=== PATIENT | female | born 1945 | race Caucasian/White ===

== ENCOUNTER 2023-09-17 15:18 | Outpatient (CLI) | payer MEDICARE, SELFPAY ==
[2023-09-17 15:39] LABS: Basophils Absolute Auto 0.07 K/mm3 (0.00-0.10); Basophils Percent Auto 0.8 % (0.0-1.0); Eosinophils Absolute Auto 0.28 K/mm3 (0.02-0.50); Eosinophils Percent Auto 3.3 % (1.0-6.0); Hematocrit 34.9 % (35.0-42.0); Hemoglobin 11.4 g/dL (11.7-13.8); Immature Granulocyte Absolute 0.03 K/mm3 (0.00-0.00); Immature Granulocyte Percent A 0.4 % (0.0-0.0); Lymphocytes Absolute Auto 1.45 K/mm3 (1.10-4.50); Lymphocytes Percent Auto 17.2 % (18.0-42.0); Mean Corpuscular HGB Conc 32.7 g/dL (32.0-36.0); Mean Corpuscular Hemoglobin 31.6 pg (27.0-31.0); Mean Corpuscular Volume 96.7 fL (78.0-102.0); Mean Platelet Volume 9.2 fl (9.2-11.8); Monocytes Percent Auto 9.5 % (2.0-11.0); Neutrophils Absolute Auto 5.8 K/mm3 (1.7-7.2); Neutrophils Percent Auto 68.8 % (50.0-70.0); Platelet Count Result 318 K/mm3 (150-420); Red Blood Count 3.61 M/mm3 (4.20-5.40); Red Cell Distribution Width 14.4 % (11.6-14.4); White Blood Count 8.4 K/mm3 (4.8-10.8)
[2023-09-17 16:06] LABS: Alanine Aminotransferase 24 U/L (14-59); Albumin Level 4.3 g/dL (3.4-5.0); Alkaline Phosphatase 63 U/L (46-116); Anion Gap 7 mmol/L (8-16); Aspartate Amino Transferase 36 U/L (15-37); Bilirubin,Total 0.4 mg/dL (0.00-1.00); Blood Urea Nitrogen 48 mg/dL (7-18); Calcium 9.5 mg/dL (8.5-10.1); Carbon Dioxide 28 mmol/L (21-32); Chloride 100 mmol/L (98-108); Cholesterol 265 mg/dL (0-200); Estimated Glomerular Filt Rate 34; Glucose 102 mg/dL (70-99); HDL Direct 102 mg/dL (40-60); LDL Cholesterol Calculated 138 mg/dL (<130); Osmolality Calculated 292 mOsm/kg (285-295); Potassium 4.9 mmol/L (3.5-5.1); Sodium 135 mmol/L (136-145); Total Protein 7.3 g/dL (6.4-8.2); Triglycerides 123 mg/dL (0-150)
[2023-09-17 16:16] LABS: Thyroid Stimulating Hormone Reflex 2.47 u/IU/mL (0.36-3.74)
== END 2023-09-17 15:19 | disposition home or self-care (01) ==
PROVIDERS: PCP Family Medicine; Visit Provider Family Medicine
DX: E11.9 Type 2 diabetes mellitus without complications (principal); E03.9 Hypothyroidism, unspecified; N18.9 Chronic kidney disease, unspecified
CPT/HCPCS: 36415; 80053; 80061; 84443; 85025

== ENCOUNTER 2023-12-09 11:45 | Outpatient (CLI) | payer MEDICARE, SELFPAY ==
--- NOTE | ~2023-12-09 | US_ITS ---
Renal-Bladder ultrasound Clinical History: Chronic kidney disease Technique: Real-time sonographic imaging of the kidneys and urinary bladder was performed. Findings: The right kidney measures 9.2 cm in length and the left kidney measures 9.6 cm. There is no hydronephrosis or renal calculus identified. Renal cortical echogenicity is within normal limits. No renal mass lesion is identified. The urinary bladder is minimally distended at the time of this exam. No intraluminal echoes are ident ified. No abnormal wall thickening is seen. Impression: Unremarkable ultrasound of the kidneys and urinary bladder. Reviewed, dictated and finalized at location M. APPRAISER Impression: Unremarkable ultrasound of the kidneys and urinary bladder.
[2023-12-09 12:43] LABS: Creatinine Urine 49.49 mg/dL (40-278); Total Protein Urine Random 10.2 mg/dL (0.0-11.9); Ur Ttl Prot Creatinine Ratio 0.21 mg/mg (0-0.20)
[2023-12-09 12:51] LABS: Albumin Level 4.1 g/dL (3.4-5.0); Anion Gap 14 mmol/L (8-16); Blood Urea Nitrogen 40 mg/dL (7-18); Calcium 8.8 mg/dL (8.5-10.1); Carbon Dioxide 22 mmol/L (21-32); Chloride 97 mmol/L (98-108); Estimated Glomerular Filt Rate 37; Glucose 108 mg/dL (70-99); Osmolality Calculated 286 mOsm/kg (285-295); Phosphorus 3.7 mg/dL (2.6-4.7); Sodium 133 mmol/L (136-145)
[2023-12-11 15:26] LABS: Albumin 4.4 g/dL (3.8-4.8); Alpha 1 Globulin 0.3 g/dL (0.2-0.3); Alpha 2 Globulin 0.8 g/dL (0.5-0.9); Beta 1 Globulin 0.5 g/dL (0.4-0.6); Gamma Globulin 0.7 g/dL (0.8-1.7); Protein, Total 7.1 g/dL (6.1-8.1)
[2023-12-12 13:14] LABS: Vitamin D 25 Hydroxy 28 ng/mL (30-100)
[2023-12-12 22:08] LABS: ANCA Screen Negative (Negative)
[2023-12-13 13:06] LABS: Anti Glomerular Basement Memb <1.0 AI (<1.0)
[2023-12-16 10:43] LABS: Complement C3 126 mg/dL (83-193)
[2023-12-16 21:23] LABS: Creatinine, Random Urine 55 mg/dL (20-275); Total Protein/Creatinine Ratio 145 mg/g creat (24-184)
== END 2023-12-09 11:46 | disposition home or self-care (01) ==
LOC: CHSIMG 11:49
PROVIDERS: PCP Family Medicine; Visit Provider Internal Medicine Nephrology
DX: I12.9 Hypertensive chronic kidney disease with stage 1 through stage 4 chronic kidney disease, or unspecified chronic kidney disease (principal); N18.32 Chronic kidney disease, stage 3b
CPT/HCPCS: 36415; 76775; 80069; 82306; 82570; 83520; 84155; 84156; 84165; 84166; 86036; 86038; 86160; 86225

== ENCOUNTER 2024-04-27 10:00 | Outpatient (CLI) | payer MEDICARE, SELFPAY ==
[2024-04-27 10:59] LABS: Anion Gap 12 mmol/L (4-12); Blood Urea Nitrogen 40 mg/dL (7-18); Carbon Dioxide 22 mmol/L (21-32); Chloride 102 mmol/L (98-108); Estimated Glomerular Filt Rate 41; Glucose 99 mg/dL (70-99); Osmolality Calculated 291 mOsm/kg (285-295); Phosphorus 3.9 mg/dL (2.6-4.7); Potassium 4.4 mmol/L (3.5-5.1); Sodium 136 mmol/L (136-145)
[2024-04-27 11:01] LABS: Creatinine Urine 23.46 mg/dL (40-278); Total Protein Urine Random < 7.0 mg/dL (0.0-11.9)
[2024-04-28 12:33] LABS: Vitamin D 25 Hydroxy 22 ng/mL (30-100)
[2024-04-28 13:23] LABS: Parathyroid Intact 26 pg/mL (16-77)
== END 2024-04-27 10:01 | disposition home or self-care (01) ==
LOC: CHSLAB 10:03
PROVIDERS: PCP Family Medicine; Visit Provider Internal Medicine Nephrology
DX: N25.81 Secondary hyperparathyroidism of renal origin (principal); N18.32 Chronic kidney disease, stage 3b; E55.9 Vitamin D deficiency, unspecified; I12.9 Hypertensive chronic kidney disease with stage 1 through stage 4 chronic kidney disease, or unspecified chronic kidney disease
CPT/HCPCS: 36415; 80069; 82306; 82570; 83970; 84156

== ENCOUNTER 2024-09-17 16:11 | Outpatient (CLI) | payer MEDICARE, SELFPAY ==
[2024-09-17 16:34] LABS: Basophils Absolute Auto 0.04 K/mm3 (0.00-0.10); Basophils Percent Auto 0.5 % (0.0-1.0); Eosinophils Absolute Auto 0.25 K/mm3 (0.02-0.50); Eosinophils Percent Auto 3.3 % (1.0-6.0); Hematocrit 38.9 % (35.0-42.0); Hemoglobin 13.3 g/dL (11.7-13.8); Immature Granulocyte Absolute 0.02 K/mm3 (0.00-0.00); Immature Granulocyte Percent A 0.3 % (0.0-0.0); Lymphocytes Percent Auto 18.3 % (18.0-42.0); Mean Corpuscular HGB Conc 34.2 g/dL (32-36); Mean Corpuscular Hemoglobin 32.3 pg (27.0-31.0); Mean Corpuscular Volume 94.4 fL (78.0-102.0); Monocytes Absolute Auto 0.78 K/mm3 (0.10-0.90); Monocytes Percent Auto 10.2 % (2.0-11.0); Neutrophils Absolute Auto 5.14 K/mm3 (1.70-7.20); Neutrophils Percent Auto 67.4 % (50.0-70.0); Platelet Count Result 298 K/mm3 (150-420); Red Blood Count 4.12 M/mm3 (4.20-5.40); Red Cell Distribution Width 12.9 % (11.6-14.4); White Blood Count 7.6 K/mm3 (4.8-10.8)
[2024-09-17 17:19] LABS: Alanine Aminotransferase 14 U/L (14-59); Albumin Level 4.4 g/dL (3.4-5.0); Alkaline Phosphatase 67 U/L (46-116); Anion Gap 13 mmol/L (4-12); Aspartate Amino Transferase 13 U/L (15-37); Bilirubin,Total 0.5 mg/dL (0.00-1.00); Blood Urea Nitrogen 39 mg/dL (7-18); Carbon Dioxide 23 mmol/L (21-32); Chloride 102 mmol/L (98-108); Cholesterol 335 mg/dL (0-200); Estimated Glomerular Filt Rate 37; Glucose 103 mg/dL (70-99); HDL Direct 120 mg/dL (40-60); LDL Cholesterol Calculated 199 mg/dL (<130); Osmolality Calculated 295 mOsm/kg (285-295); Potassium 4.6 mmol/L (3.5-5.1); Sodium 138 mmol/L (136-145); Total Protein 7.8 g/dL (6.4-8.2); Triglycerides 78 mg/dL (0-150)
[2024-09-17 17:20] LABS: Thyroid Stimulating Hormone Reflex 1.82 u/IU/mL (0.36-3.74)
--- OUTSIDE RECORDS SUMMARY | 2024-09-21 04:17 | XMS_ITS | Encounter Summary ---
Author Organization [facility] Address [address] [place] [address] Phone Care Team Providers Care Wrapper Hands Sprayer Name Role Phone Liliya Rai MD Unavailable Cate Patel MD Primary Care Provider [phone] Vadim Browning MD Unavailable Unavailable Sarah Borges MD Unavailable +1- [phone] Reason for Visit * Reason Onset Date Comments Results 10/25/2021 Encounter Details Date Type Department Care Team (Late st Contact Info) Description 10/25/2021 Telephone [facility] - Endocrinology [facility] [address] [place] [address] Liliya Rai MD [address] [address] Results Social History Tobacco Use Types Packs/Day Years Used Date Smoking Tobacco: Never Smokeless Tobacco: Never Alcohol Use Standard Drinks/Week Comments No 0 (1 standard drink = 0.6 oz pur e alcohol) PHQ-2 Answer Date Recorded PHQ-2 Score 0 06/07/2019 Sexually Active Control Partners Comments Not Currently Comments No Sex and Gender Information Value Date Recorded Sex Assigned at Not on file Legal Sex Female 12:34 AM CDT Gender Identity Not on file Sexual Orientation Not on file COVID-19 Exposure Response Date Recorded In the last month, have you been in contact with someone who was confirmed or suspected to have Coronavirus / COVID-19? No / Unsure 10/25/2021 10:08 AM BUCKLE ATTACHER documented as of this encounter Miscellaneous Notes * Telephone Encounter - Vira Turcios RN - 10/26/2021 2:54 PM BUCKLE ATTACHER Akellat message sent. LE ATTACHER * Telephone Encounter - Liliya Rai MD - 10/25/2021 4:19 PM CST Please inform that thyroid function test result was within the reference range. LE ATTACHER documented in this encounter Plan of Treatment Not on file documented as of this encounter Visit Diagnoses Not on filedocumented in this encounter Additional Health Concerns Assessment Noted Time PHQ-9 Depression Total Score: 0 08/30/20 3:00 PM BUCKLE ATTACHER documented as of this encounter Care Teams Wrapper Hands Sprayer Relationship Specialty Start Date End Date Cate Patel MD [address] [place] [address] PCP - General Family Medicine 12/11/20 03/05/23 Liliya Rai MD [address] [address] Consulting Physician Endocrinology 10/24/20 Vadim Browning MD [address] [place] [address] Consulting Physician General Surgery 03/22/21 Sarah Borges MD [address] [place] [address] Consulting Physician Endocrinology 03/22/21 documented as of this encounter
--- OUTSIDE RECORDS SUMMARY | 2024-09-21 04:17 | XMS_ITS | Encounter Summary ---
Author Organization [employer] Care Team Providers Care Mig Tig Welder Name Role Phone Liliya Rai MD Unavailable Cate Patel MD Primary Care Provider [phone] Vadim Browning MD Unavailable Unavailable Sarah Borges MD Unavailable [phone]- [phone] Encounter Details Date Type Department Care Team (Latest Contact Info) Description 10/25/2021 Travel Social History Tobacco Use Types Packs/Day Years [...] COVID-19? No / Unsure 10/25/2021 10:08 AM SHEET METAL ENGINEER documented as of this encounter Plan of Treatment Not on file documented as of this encounter Visit Diagnoses Not on filedocumented in this encounter Additional Health Concerns Assessment Noted Time PHQ-9 Depression Total Score: 0 11/25/20 19 3:00 PM SHEET METAL ENGINEER documented as of this encounter Care Teams Mig Tig Welder Relationship Specialty Start Date End Date Cate Patel MD [address] [place] [address] PCP - General Family Medicine 12/11/20 03/05/23 Liliya Rai MD #[address] [address] Consulting Physician Endocrinology 10/24/20 Vadim Browning MD [address] [place] [address] Consulting Physician General Surgery 03/22/21 Sarah Borges MD [address] [place] [address] Consulting Physician Endocrinology 03/22/21 documented as of this encounter
--- OUTSIDE RECORDS SUMMARY | 2024-09-21 04:17 | XMS_ITS | Referral Summary ---
Author Organization [facility] Address [address] [address] Care Team Providers Care Health Technician Hearing Name Role Phone Unavailable Primary Care Provider Unavailabl e Source Comments [facility],non-owned Affiliates and Associated Physician Practices is amultiple site organization consisting of ambulatory clinics and hospital sitesin [place], [place], [place] and [place]. This disclosure is being madepursuant to the Care Everywhere program and may not contain all information available regarding this patient. Last updated 18.[facility] Social History Tobacco Use Types Packs/Day Years Used Date Smoking Tobacco: Never Assessed Sex and Gender Information Value Date Recorded Sex Assigned at Not on file Gender Identity Not on file Sexual Orientation Not on file Plan of Treatment Not on file
--- OUTSIDE RECORDS SUMMARY | 2024-09-21 04:17 | XMS_ITS | Encounter Summary ---
Author Organization [employer] Care Team Providers Care [employer] Special Education Teacher Name Role Phone Liliya Rai MD Unavailable Cate Patel MD Primary Care Provider + [phone] Vadim Browning MD Unavailable Unavailable Sarah Borges MD Unavailable [phone]- [phone] Encounter Details Date Type Department Care Team (Latest Contact Info) Description 06/24/2022 Travel Social History Tobacco Use Types Packs/Day [...] Exposure Response Date Recorded In the last 10 days, have yo u been in contact with someone who was confirmed or suspected to have Coronavirus/COVID-19? No / Unsure 06/24/2022 9:37 AM CDT documented as of this encounter Plan of Treatment Not on file documented as of this encounter Visit Diagnoses Not on filedocumented in this encounter Additional Health Concerns Assessment Noted Time PHQ-9 Depression Total Score: 0 08/30/20 19 3:00 PM HOSPITAL COOK documented as of this encounter Care Teams [employer] Special Education Teacher Relationship Specialty Start Date End Date Cate Patel MD [address] [place] [address] PCP - General Family Medicine 12/11/20 03/05/23 Liliya Rai MD #[address] [address] Consulting Physician Endocrinology 10/24/20 Vadim Browning MD [address] [place] [address] Consulting Physician General Surgery 03/22/21 Sarah Borges MD [address] [place] [address] Consulting Physician Endocrinology 03/22/21 documented as of this encounter
--- OUTSIDE RECORDS SUMMARY | 2024-09-21 04:17 | XMS_ITS | Encounter Summary ---
Author Organization [facility] Address [address] [place] [address] Phone Care Team Providers Care Manufacturing Test Engineer Name Role Phone Liliya Rai MD Unavailable Cate Ptael MD Primary Care Provider [phone] Vadim Browning MD Unavailable Unavailable Sarah Borges MD Unavailable +- [phone] Guerrero Nicholson MD Primary Care Provider Reason for Visit * Reason Comments Medication Refill Encounter Details Date Type Department Care Team (Late st Contact Info) Description 10/22/2021 Refill [facility] - Primary Care - [place] [address] [place] [address] Cate Patel MD [address] [place] [address] Medication Refill Social History Tobacco Use Types Packs/Day Years [...] COVID-19? No / Unsure 10/25/2021 10:08 AM GEOGRAPHIC INFORMATION SYSTEMS ANALYST documented as of this encounter Miscellaneous Notes * Telephone Encounter - Shoshana Burns RN - 10/22/2021 10:58 AM CST Refill too soon RAPHIC INFORMATION SYSTEMS ANALYST documented in this encounter Plan of Treatment Not on file documented as of this encounter Visit Diagnoses Diagnosis Gastroesophageal reflux disease without esophagitis Esophageal reflux Obesity, Class III, BMI 40-49.9 (morbid obesity) (HCC) Morbid obesity documented in this encounter Additional Health Concerns Assessment Noted Time PHQ-9 Depression Total Score: 0 08/30/20 19 3:00 PM GEOGRAPHIC INFORMATION SYSTEMS ANALYST documented as of this encounter Care Teams Manufacturing Test Engineer Relationship Specialty Start Date End Date Cate Patel MD [address] [place] [address] PCP - General Family Medicine 12/11/20 03/05/23 Guerrero Nicholson MD [address] [facility] [address] [place] [address] PCP - General Neurology 07/30/23 Liliya Rai MD #[address] [phone] Consulting Physician Endocrinology 10/24/20 Vadim Browning MD [address] [place] [address] Consulting Physician General Surgery 03/22/21 Sarah Borges MD [address] [place] [address] Consulting Physician Endocrinology 03/22/21 documented as of this encounter
--- OUTSIDE RECORDS SUMMARY | 2024-09-21 04:17 | XMS_ITS | Encounter Summary ---
Author Organization [employer] Care Team Providers Care Psychological Science Professor Name Role Phone Liliya Rai MD Unavailable Vadim Browning MD Unavailable Unavailable Sarah Borges MD Unavailable [phone] Guerrero Nicholson MD Primary Care Provider Encounter Details Date Type Department Care Team (Latest Contact Info) Description 07/30/2023 Travel Social History Tobacco Use Types Packs/Day [...] suspected to have Coronavirus/COVID-19? No / Unsure 07/30/2023 12:50 PM CDT documented as of this encounter Plan of Treatment Not on file documented as of this encounter Visit Diagnoses Not on filedocumented in this encounter Additional Health Concerns Assessment Noted Time PHQ-9 Depression Total Score: 0 08/30/20 19 3:00 PM BATCH FREEZER OPERATOR documented as of this encounter Care Teams Psychological Science Professor Relationship Specialty Start Date End Date Guerrero Nicholson MD [address] [facility] [address] [place] [address] PCP - General Neurology 07/30/23 Liliya Rai MD [address] [address] Consulting Physician Endocrinology 10/24/20 Vadim Browning MD #[address] [address] Consulting Physician General Surgery 03/22/21 Sarah Borges MD #[address] [address] Consulting Physician Endocrinology 03/22/21 documented as of this encounter
--- OUTSIDE RECORDS SUMMARY | 2024-09-21 04:17 | XMS_ITS | Encounter Summary ---
Author Organization [facility] Address [address] [place] [address] Phone Care Team Providers Care Trials Manager Name Role Phone Liliya Rai MD Unavailable Cate Patel MD Primary Care Provider [phone] Vadim Browning MD Unavailable Unavailable Sarah Borges MD Unavailable +- [phone] Guerrero Nciholson MD Primary Care Provider Reason for Visit * Reason Comments Medication Refill Encounter Details Date Type Department Care Team (Late st Contact Info) Description 09/02/2022 Refill [facility] - Primary Care - [place]oj [address] [place] [address] Cate Patel MD [address] [place] [address] Medication Refill Social History Tobacco [...] on file Sexual Orientation Not on file documented as of this encounter Miscellaneous Notes * Telephone Encounter - Shoshana Burns RN - 09/03/2022 9:48 AM CST Refill requested too soon. CARE MANAGER documented in this encounter Plan of Treatment Not on file documented as of this encounter Visit Diagnoses Diagnosis Gastroesophageal reflux disease without esophagitis Esophageal reflux Acquired hypothyroidism Unspecified hypothyroidism Hyperlipidemia, unspecified hyperlipidemia type Obesity, Class III, BMI 40-49.9 (morbid obesity) (HCC) Morbid obesity Essential hypertension Unspecified essential hypertension documented in this encounter Additional Health Concerns Assessment Noted Time PHQ-9 Depression Total Score: 0 08/30/20 19 3:00 PM BODY CARE MANAGER documented as of this encounter Care Teams Trials Manager Relationship Specialty Start Date End Date Cate Patel MD [address] [place] [address] PCP - General Family Medicine 12/11/20 03/05/23 Guerrero Nicholson MD [address] [facility] [address] [place] [address] PCP - General Neurology 07/30/23 Liliya Rai MD [address] [address] Consulting Physician Endocrinology 10/24/20 Vadim Browning MD [address] [place] [address] Consulting Physician General Surgery 03/22/21 Sarah Borges MD [address] [place] [address] Consulting Physician Endocrinology 03/22/21 documented as of this encounter
--- OUTSIDE RECORDS SUMMARY | 2024-09-21 04:17 | XMS_ITS | Encounter Summary ---
Author Organization [employer] Care Team Providers Care Landscape Horticulture Instructor Name Role Phone Liliya Rai MD Unavailable Cate Patel MD Primary Care Provider + [phone] Vadim Browning MD Unavailable Unavailable Sarah Borges MD Unavailable [phone]- [phone] Encounter Details Date Type Department Care Team (Latest Contact Info) Description 06/27/2022 Travel Social History Tobacco Use Types Packs/Day [...] suspected to have Coronavirus/COVID-19? No / Unsure 06/27/2022 11:10 AM CDT documented as of this encounter Plan of Treatment Not on file documented as of this encounter Visit Diagnoses Not on filedocumented in this encounter Additional Health Concerns Assessment Noted Time PHQ-9 Depression Total Score: 0 08/30/20 19 3:00 PM ORNAMENTER documented as of this encounter Care Teams Landscape Horticulture Instructor Relationship Specialty Start Date End Date Cate Patel MD [address] [place] [address] PCP - General Family Medicine 12/11/20 03/05/23 Liliya Rai MD [address] [phone] Consulting Physician Endocrinology 10/24/20 Vadim Browning MD [address] [place] [address] Consulting Physician General Surgery 03/22/21 Sarah Borges MD [address] [place] [address] Consulting Physician Endocrinology 03/22/21 documented as of this encounter
--- OUTSIDE RECORDS SUMMARY | 2024-09-21 04:17 | XMS_ITS | Encounter Summary ---
Author Organization [facility] Address [address] [place] [address] Phone Care Team Providers Care Butter Printer Name Role Phone Liliya Rai MD Unavailable Cate Patel MD Primary Care Provider [phone] Vadim Browning MD Unavailable Unavailable Sarah Borges MD Unavailable +- [phone] Reason for Visit * Reason Comments Confusion Need Order For walker with a se at Encounter Details Date Type Department Care Team (Latest Contact Info) Description 12/27/2021 10:30 AM CDT Office Visit [facility] - Primary Care - Saroj [address] [place] [id number] Cate Patel MD [address] [place], [place] [id number] Primary hypertension (Primary Dx); Hyperlipidemia, unspecified hyperlipidemia type; Memory loss; Spinal stenosis of lumbar region, unspecified whether neurogenic claudication present; Primary osteoarthritis involving multiple joints; IFG (impaired fasting glucose) Discharge Disposition: Discharged to home or Selfcare Social History Tobacco Use Types Packs/Day Years [...] suspected to have Coronavirus/COVID-19? No / Unsure 12/27/2021 10:08 AM CDT documented as of this encounter Last Filed Vital Signs Vital Sign Reading Time Taken Comments Blood Pressure 126/74 12/27/2021 10:12 AM CDT Pulse 90 12/27/2021 10:12 AM CDT Temperature - - Respiratory Rate 19 12/27/2021 10:12 AM CDT Oxygen Saturation 98% 12/27/2021 10:12 AM CDT Inhaled Oxygen Concentration - - Weight 91.6 kg (202 lb) 12/27/2021 10:12 AM CDT Height 157.5 cm (5' 2 ) 12/27/2021 10:12 AM CDT Body Mass Index 36.95 12/27/2021 10:12 AM CDT documented in this encounter Progress Notes * Cate Patel MD - 12/27/2021 10:30 AM CDT Subjective Chief Complaint Patient presents with ??? Confusion ??? Need Order For walker with a seat History of Present Illness Silvia Boss presents here for a followup for her chronic medical conditions. Vitals are stable with a BP of 126/74 mmHg. She continues to take diltiazem CD 240 mg daily and lisinopril/HCTZ 20/25 mgdaily. She reports having lost her son recently. Apparently, his friend and her son were drunk and his friend shot him, so she seems to be very emotional and crying. She denies having any depression symptoms. She reports having memory loss symptoms, especially when she drives. She would drive to her friend's house but get lost on the way and would not remember where she was going and while she was going and then after a few seconds, she will be able to recollect and then drive to her friend's house. This happened a few times in the last 2 months. She initially thought it was because of the COVID vaccine, but her COVID vaccine was given in November and December of 2020. Denies having memory loss at other times, at home she is fine, when she is talking to her friends, she is fine. She has not had any loss of memory, specifically. Mindfulness technique surgery recommended while driving. She wants a seated walker because she has osteoarthritis in her knees and shoulders. She is currently using a cane, which is not very helpful. She wants to be more mobile, but is afraid about falls, so a prescription for a seated walker given. She would benefit from that as she is high risk for falls. LABS: Done on 12/19/2021 were reviewed. Ferritin level is high. Iron studies are normal. Thyroid functions are normal. Lipid panel shows elevated total cholesterol of 223, LDL is at goal at 117 and CMP shows FBS of 108 which is impaired. Creatinine is 1.25 with an EG FR of 42. LFTs are normal. CBCis within acceptable limits with a hemoglobin of 11.6. IJN: [id number] ROS: RESPIRATORY: Patient denies shortness of breath, chronic cough or other respiratory problems. CARDIAC: Patient denies chest pain, chest pressure, palpitations, diaphoresis, chest pain radiating into arms or neck. PMH/PSH/FH/SH/medications/allergies/health maintenance entries were reviewed with patient and updated. Objective: Physical Exam Vitals: 12/27/21 1012 BP: 126/74 Pulse: 90 Resp: 19 SpO2: 98% Weight: 202 lb (91.6 kg) Height: 5' 2 (1.575 m) Body mass index is 36.95 kg/m??. Constitutional: She appears well-developed and well-nourished. No distress. HENT: Head: Atraumatic, normocephalic. Cardiovascular: Normal rate, regular rhythm, normal heart sounds and intact distal pulses. No murmur/rubs/gallops heard. Pulmonary/Chest: clear to auscultation bilaterally, no crepts or wheezes. Musculoskeletal/extremities: no pedal edema, no calf tenderness. Skin: Skin is warm and dry. Assessment and Plan Silvia Boss presents here for Confusion and Need Order (For walker with a seat ) 1. Primary hypertension - continue diltiazem CD 2 40 mg q.d., lisinopril/HCTZ 20/25 mg q.d. 2. Hyperlipidemia, unspecified hyperlipidemia type - continue simvastatin 5 mg q.d. 3. Memory loss - only when driving. Memory at other times is very good. Mindfullness practices recommended. 4. Spinal stenosis of lumbar region, unspecified whether neurogenic claudication present 5. Primary osteoarthritis involving multiple joints - WALKER, ROLLER WITH SEAT AND BRAKES 6. IFG (impaired fasting glucose) - Advised Low carb diet, low concentrated sweets, exercise and weight loss. Followup: Return in about 6 months (around 06/29/2022).with labs done 1 week prior to next appointment. The patient understood the plan, questions were answered and AVS including the updated medication list was provided to the patient. Documentation for this visit on 12/27/21 was completed using a template. I have seen and examined the patient. Everything documented was personally performed at this visit with the necessary additions, deletions and changes made as appropriate. This note was dictated using [employer] fluency dictation system and there may be errors in rock wool applicator. Despite proof reading the note, there may be mistakes and I apologize for those. Cate Patel MD documented in this encounter Plan of Treatment Not on file documented as of this encounter Results * THYROID STIMULATING HORMONE (TSH) (06/24/2022 9:42 AM CDT) TSH 1.600 0.270 - 4.200 mIU/L 06/24/2022 10:49 AM CDT [facility] Blood Venipuncture / Unknown 06/24/2022 9:42 AM CDT 06/24/2022 10:15 AM CDT us Cate Patel MD CHEMISTRY ORDERABLES Final R esult [facility] [address] [place] [address] * THYROXINE (T4) FREE (06/24/2022 9:42 AM CDT) [facility] T4 FREE 1.3 0.9 - 1.7 ng/dL 06/24/2022 10:49 AM CDT [facility] Blood Venipuncture / Unknown 06/24/2022 9:42 AM CDT 06/24/2022 10:15 AM CDT us Cate Patel MD CHEMISTRY ORDERABLES Final R esult Performing Organization Address [facility] Co de Phone Number [facility] [address] [place] [address] * HEMOGLOBIN A1C W/ ESTIMATED GLUCOSE (06/24/2022 9:42 AM CDT) [facility] HGB-A1C 5.6 4.0 - 6.0 % 06/24/2022 10:31 AM CDT [facility] Est Average Glucose 114.0 mg/dL 06/24/2022 10:31 AM CDT [facility] Blood Venipuncture / Unknown 06/24/2022 9:42 AM CDT 06/24/2022 10:15 AM CDT Narrative [facility] - 06/24/2022 10:31 AM CDT HEMOGLOBIN A1C: DIABETIC PATIENTS: WELL-CONTROLLED: ?? 6.2 - 7.0 INTERMEDIATE WELL-CONTROLLED: ??7.0 - 9.0 POORLY-CONTROLLED: ??>9.0 us Cate Patel MD CHEMISTRY ORDERABLES Final R esult Performing Organization Address [facility] Co de Phone Number [facility] [address] [place] [address] * (ABNORMAL) LIPID PANEL (06/24/2022 9:42 AM CDT) Pathologist [facility] CHOLESTEROL 221(H) <=200 mg/dL 06/24/2022 10:49 AM CDT [facility] TRIGLYCERIDES 67 <150 mg/dL 06/24/2022 10:49 AM CDT [facility] HDL CHOLESTEROL 94.3 >40 mg/dL 10:49 AM CDT [facility] LDL 113 5 - 130 mg/dL 06/24/2022 10:49 AM CDT [facility] VLDL 13 5 - 55 mg/dL 06/24/2022 10:49 AM CDT [facility] CHOL/HDL RATIO 2.3 0.0 - 4.4 06/24/2022 10:49 AM CDT [facility] NON-HDL CHOLESTEROL 126.7 <130 mg/dL 06/24/2022 10:49 AM CDT [facility] IS THE PATIENT REQUIRED TO BE FASTING? Yes 06/24/2022 10:49 AM CDT [facility] HAS THE PATIENT BEEN FASTING? Yes 06/24/2022 10:49 AM CDT [facility] Blood Venipuncture / Unknown 06/24/2022 9:42 AM CDT 06/24/2022 10:15 AM CDT us Cate Patel MD CHEMISTRY ORDERABLES Final R esult [facility] [address] [place] [address] * (ABNORMAL) CMP (COMPREHENSIVE METABOLIC PANEL) (06/24/2022 9:42 AM CDT) [facility] SODIUM 134(L) 136 - 144 mmol/L 06/24/2022 10:49 AM CDT [facility] POTASSIUM 3.9 3.5 - 5.1 mmol/L 06/24/2022 10:49 AM CDT [facility] CHLORIDE 100 100 - 110 mmol/L 06/24/2022 10:49 AM CDT [facility] CO2, VENOUS 22 22 - 32 mmol/L 06/24/2022 10:49 AM CDT [facility] ANION GAP 15.9 8.0 - 20.0 mmol/L 06/24/2022 10:49 AM CDT [facility] GLUCOSE 104(H) 70 - 99 mg/dL 06/24/2022 10:49 AM CDT [facility] BUN 33(H) 8 - 23 mg/dL 06/24/2022 10:49 AM CDT [facility] CREATININE, BLOOD 1.31(H) 0.60 - 1.10 mg/dL 06/24/2022 10:49 AM T [facility] BUN/CREATININE RATIO 25(H) 12 - 20 ratio 06/24/2022 10:49 AM [facility] TOTAL PROTEIN 7.3 6.0 - 8.3 g/dL 06/24/2022 10:49 AM CDT [facility] ALBUMIN 4.7 3.5 - 5.2 g/dL 06/24/2022 10:49 AM [facility] Comment: The colormetric methods used for the determination of Albumin may lead to falsely elevated test results in patients suffering from renal failure or insufficiency due to interference with other proteins. A/G RATIO 1.8 1.0 - 2.0 06/24/2022 10:49 AM T [facility] CALCIUM 9.8 8.9 - 10.3 mg/dL 06/24/2022 10:49 AM CDT [facility] T BILI 0.3 <=1.2 mg/dL 06/24/2022 10:49 AM CDT [facility] SGOT (AST) 10 <=32 U/L 06/24/2022 10:49 AM CDT [facility] SGPT (ALT) 6 <=41 U/L 06/24/2022 10:49 AM CDT [facility] ALKALINE PHOSPHATASE 57 35 - 105 U/L 06/24/2022 10:49 AM CDT [facility] IS THE PATIENT REQUIRED TO BE FASTING? No 06/24/2022 10:49 AM CDT [facility] GFR, ESTIMATED 42(L) >=60 06/24/2022 10:49 AM CDT [facility] Comment: Creatinine Clearance is the preferred criteria for selecting drug dose adjustments in renally impaired patients. ??The GFR is provided as additional pertinent clinical information. GFR is reported in mL/min/1.73 sq m. Calculation based on the Chronic Kidney Disease Epidemiology Collaboration (CKD- EPI) equation refit without adjustment for race. GFR, EST. 48(L) >=60 022 10:49 AM CDT [facility] GFR, EST. NONAFRICAN 40(L) >=60 06/24/2022 10:49 AM CDT [facility] Blood Venipuncture / Unknown 06/24/2022 9:42 AM CDT 06/24/2022 10:15 AM CDT us Cate Patel MD CHEMISTRY ORDERABLES Final R esult [facility] [address] [place] [address] documented in this encounter Visit Diagnoses Diagnosis Primary hypertension- Primary Unspecified essential hypertension Hyperlipidemia, unspecified hyperlipidemia type Memory loss Spinal stenosis of lumbar region, unspecified whether neurogenic claudication present Primary osteoarthritis involving multiple joints IFG (impaired fasting glucose) Impaired fasting glucose documented in this encounter Additional Health Concerns Assessment Noted Time PHQ-9 Depression Total Score: 0 08/30/20 19 3:00 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
--- OUTSIDE RECORDS SUMMARY | 2024-09-21 04:17 | XMS_ITS | Encounter Summary ---
Author Organization [facility] Address [address] [place] [address] Phone Care Team Providers Care Deep Fat Cook Fry Name Role Phone Liliya Rai MD Unavailable Cate Patel MD Primary Care Provider [phone] Vadim Browning MD Unavailable Unavailable Sarah Borges MD Unavailable [phone]- [phone] Guerrero Nicholson MD Primary Care Provider Reason for Visit * Reason Comments Medication Refill Encounter Details Date Type Department Care Team (Late st Contact Info) Description 10/31/2021 Refill [facility] - Primary Care - Saroj [address] [place] [address] Cate Patel MD [address] [place] [address] Medication Refill Social History Tobacco [...] COVID-19? No / Unsure 10/25/2021 10:08 AM MOLDER FITTING documented as of this encounter Miscellaneous Notes * Telephone Encounter - Evonne Altamirano RN - 10/31/2021 2:11 PM CST Medication failed the protocol, provider to review and approve the medication order if appropriate. Requested Prescriptions Pending Prescriptions Disp Refills Topiramate 50 MG Tablet [Pharmacy Med Name: Topiramate 50 MG Oral Tablet] 180 Tablet 0 Sig: Take 1 tablet by mouth twice daily Not Delegated - Anticonvulsants Excluding Benzodiazepines Protocol Failed - 10/31/2021 12:57 PM Failed - This refill cannot be delegated Passed - Visit with relevant provider in past 12 months or upcoming 90 days Recent Visits Date Type Provider Dept 06/28/21 Office Visit [facility] 03/[facility]21 Office Visit Cate Patel MD [facility] 10/31/20 Office Visit Cate Patel MD [facility] Showing recent visits within past 365 days and meeting all other requirements Future Appointments Date Type Provider Dept 12/27/21 Appointment Cate Patel MD [facility] Showing future appointments within next 90 days and meeting all other requirements ER FITTING documented in this encounter Plan of Treatment Not on file documented as of this encounter Visit Diagnoses Diagnosis Obesity, Class III, BMI 40-49.9 (morbid obesity) (HCC) Morbid obesity documented in this encounter Additional Health Concerns Assessment Noted Time PHQ-9 Depression Total Score: 0 08/30/20 19 3:00 PM MOLDER FITTING documented as of this encounter Care Teams Deep Fat Cook Fry Relationship Specialty Start Date End Date Cate Patel MD [address] [place] [address] PCP - General Family Medicine 12/11/20 03/05/23 Guerrero Nicholson MD [address] [facility] [address] [place] [address] PCP - General Neurology 07/30/23 Liliya Rai MD #2 [facility] [address] [place] [address] Consulting Physician Endocrinology 10/24/20 Vadim Browning MD [address] [place] [address] Consulting Physician General Surgery 03/22/21 Sarah Borges MD [address] [place] [address] Consulting Physician Endocrinology 03/22/21 documented as of this encounter
--- OUTSIDE RECORDS SUMMARY | 2024-09-21 04:17 | XMS_ITS | Encounter Summary ---
Author Organization [employer] Care Team Providers Care Roller Pneumatic Name Role Phone Liliya Rai MD Unavailable Cate Patel MD Primary Care Provider [phone] Vadim Browning MD Unavailable Unavailable Sarah Borges MD Unavailable [phone] Encounter Details Date Type Department Care Team (Latest Contact Info) Description 12/19/2021 Travel Social History Tobacco Use Types Packs/Day [...] suspected to have Coronavirus/COVID-19? 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
--- OUTSIDE RECORDS SUMMARY | 2024-09-21 04:17 | XMS_ITS | Encounter Summary ---
Author Organization [facility] Address [address] [facility] [place] [address] Care Team Providers Care Director Pharmacy Services Name Role Phone Unavailable Primary Care Provider Unavailabl e Encounter Details Date Type Department Care Team (Late st Contact Info) Description 11/11/2018 Lab Requisition [facility] Care Pathology Lab [address] [place] [address] Madelyn Fontanez MD [address] [place] [address] Anemia Social History Tobacco Use Types Packs/Day Years Used Date Smoking Tobacco: Never Assessed Sex and Gender Information Value Date Recorded Sex Assigned at Not on file Gender Identity Not on file Sexual Orientation Not on file documented as of this encounter Plan of Treatment Not on file documented as of this encounter Procedures Procedure Name Priority Date/Time Associated Diagnosis Comments FLOW CYTOMETRY BONE MARROW Routine 11/11/2018 8:16 AM UNDERWRITING ANALYST Anemia documented in this encounter Results * FLOW CYTOMETRY BONE MARROW (11/11/2018 8:16 AM UNDERWRITING ANALYST) Case Report Flow Cytometry ?Case: [id number] ? Authorizing Provider: ??Madelyn Fontanez MD ? Collected: ? 11/11/2018 08:16 AM ? Pathologist: ? Goyo Rose MD ? Received: ?11/11/2018 02:44 PM ? Specimen: ?Bone Marrow ? 11/12/2018 10:[address] [facility] Final Diagnosis Bone marrow, flow cytometric immunophenotypic analysis: - No evidence of non-Hodgkin lymphoma or high grade myeloid neoplasm - See interpretation. 11/12/2018 10:[address] [facility] Flow Cytometry Interpretation The bone marrow specimen has a viability of 94%. The lymphocyte, dim CD45, monocyte, and granulocyte kinsey are normal in relative proportion. Within the lymphocyte gate, there is no monotypic B-cell population identified (kappa: lambda ratio = 1.9:1). There is no aberrant co-expression of CD5 or CD10 on the B-cells. There is no expanded T-cell population seen. By CD34, 0.5% of all events analyzed are blasts. A bone marrow aspirate smear prepared from the flow cytometry specimen is reviewed for vice president quality improvement purposes. Overall, the bone marrow aspirate specimen shows no evidence of involvement by non-Hodgkin lymphoma or a high-grade myeloid neoplasm. Correlation with clinical findings, concurrent bone marrow core biopsy ([id number]), and relevant cytogenetic/molecu lar studies is required. PRODUCT MARKETER/ 11/12/2018 10:[address] [facility] Flow Cytometry Results Differential Result Comment Flow Cell Count /uL [id number] Total Viability % 94.0 Lymphocytes % 4 Dim CD45 Region % 1 Monocytes % 6 Granulocytes % 88 11/12/2018 10:[address] [facility] Reason for test Anemia 285.9 11/12/2018 10:[address] [facility] Client Specimen ID # [id number] 11/12/2018 10:[address] [facility] Number of markers 10 were performed. A Flow CD10 A Flow CD13 A Flow CD20 A Flow CD5 A Flow CD19 A Flow CD33 A Flow CD34 A Flow CD45 A [address] [place] [address]+CD19+ A Lambda+CD19+ 11/12/2018 10:[address] [facility] Disclaimer Test performed at [facility], [address] [place], [place], [address]. *The established laboratory minimum viability is 70%. Values below the minimum may result in the failure to find an abnormal population of cells. This test was developed and its performance characteristics determined by the Flow Cytometry Laboratory. It has not been cleared by the [place] Food and Drug Administration (FDA). The FDA has determined that such clearance or approval is not necessary. This test is used for clinical purposes. It should not be regarded as investigational or for research. This laboratory is regulated under the Clinical Laboratory Improvement Amendments of 1998 (CLIA) as a qualified to perform high complexity clinical testing. 11/12/2018 10:[address] [facility] Embedded Images 9 10:[address] [facility] Pathology/Cytolo gy BONE MARROW SPECIMEN / Unknown 11/11/2018 8:16 AM UNDERWRITING ANALYST 11/11/2018 2:44 PM UNDERWRITING ANALYST Madelyn Fontanez MD LAB - PATHOLOGY/CYTO LOGY ORDERABLES [facility] [address] [facility] [place] [address], [facility] [phone] documented in this encounter Visit Diagnoses Diagnosis Anemia Anemia, unspecified documented in this encounter
--- OUTSIDE RECORDS SUMMARY | 2024-09-21 04:17 | XMS_ITS | Clinical Summary ---
Author Organization [facility] Address [address] [place] [address] Phone Care Team Providers Care Jigger Artisan Name Role Phone Liliya Rai MD Unavailable Vadim Browning MD Unavailable Unavailable Sarah Borges MD Unavailable [phone] Guerrero Nicholson MD Primary Care Provider Allergies No known active allergies Medications Aspirin 81 MG Tablet Take 81 mg by mouth daily. Active dilTIAZem (CARDIZEM CD) 240 MG CAPSULE SR 24 HRIndications:Essen tial hypertension Take 1 Capsule by mouth daily. 90 Capsule 1 2 Active levothyroxine (SYNTHROID) 75 MCG TabletIndications:A cquired hypothyroidism Take 1 Tablet by mouth daily. 90 Tablet 1 2 Active lisinopril-hydroCHL OROthiazide (PRINZIDE, ZESTORETIC) 20-25 MG TabletIndications:E ssential hypertension Take 1 Tablet by mouth daily. 90 Tablet 1 2 Active Loperamide HCl (IMODIUM) 2 MG Tablet Take 1 Tablet by mouth daily as needed for Diarrhea. 90 Tablet 1 2 Active omeprazole (PriLOSEC) 40 MG CAPSULE DELAYED RELEASEIndications: Gastroesophageal reflux disease without esophagitis Take 1 Capsule by mouth daily. 90 Capsule 1 2 Active Topiramate 50 MG TabletIndications:O besity, Class III, BMI 40-49.9 (morbid obesity) (HCC) Take 1 Tablet by mouth 2 times daily. 180 Tablet 1 2 Active folic acid (FOLVITE) 1 MG TabletIndications:F olic acid deficiency Take 1 Tablet by mouth daily. 30 Tablet 1 3 Active Active Problems Problem Noted Date Diagnosed Date Chronic renal failure, stage 3b 07/30/2023 Memory loss 12/27/2021 Chronic left-sided headaches 03/01/2021 Benign paroxysmal positional vertigo 03/01/2021 IFG (impaired fasting glucose) 08/30/2019 Pituitary macroadenoma 05/24/2019 Migraine without aura and wi thout status migrainosus, not intractable 04/09/2019 Anxiety disorder 04/09/2019 Chronic fatigue 03/25/2019 Hiatal hernia 06/24/2018 Spinal stenosis of lumbar region 02/17/2018 Primary osteoarthritis involving multiple joints 02/17/2018 Hyperlipidemia 08/19/2017 Obesity, Class III, BMI 40-49.9 (morbid obesity) 04/14/2017 Thyroid nodule 07/24/2016 Gastroesophageal reflux disease 02/22/2016 HTN (hypertension) Depression MARY on CPAP Iron deficiency anemia due to chronic blood loss Hypothyroidism Folic acid deficiency Resolved Problems Problem Noted Date Diagnosed Date Resolved Date Iron deficiency 07/05/2019 07/20/2020 Anemia, unspecified 09/28/2018 08/30/20 19 Prediabetes 08/19/2017 08/30/2019 Immunizations Immunization Administration Dates Next Due Covid-19, Mrna, Lnp-s, Pf, 3 0 Mcg/0.3 Ml Dose (Formula XO) 04/09/2022,12/19/2020,12/01/2020 H1N1 Flu, Unspecified Formulation 11/01/2009 Influenza Vaccine greater than 3 yrs 09/18/2015, 08/06/2014 09/26/2016 Influenza Vaccine, Quadrivalent, PF 06/07,06/28/2021,07/20/2020,08/25,09/03/2018,08/19/2017 Influenza Vaccine,unspecifie d Formulation 07/06/2021 PUR FLU HIGH DOSE (FLUZONE) 08/27/2016 Pneumococcal Vaccine - 13 Valent 08/19/2017 Pneumococcal Vaccine Adult - 23 Valent 09/03/2018,10/06/2011 TD VACCINE 10/06/1989 Zoster Vaccine Recombinant 07/10/2021,05/10/2021 Zoster Vaccine, live 12/04/2012 Family History Medical History Relation Name Comments Diabetes Brother 1 x 2 Hypertension Brother 1 Heart Disease Brother 2 x 2 Hypertension Brother 2 Arthritis Father Emphysema Father Hypertension Father Arthritis Mother Diabetes Mother Heart Attack Mother Hypertension Mother Stroke Mother Hypertension Sister 1 Hypertension Sister 2 Hypertension Sister 3 Hypertension Sister 4 Relation Name Status Comments Brother 1 Brother 2 Father Mother Sister 1 Sister 2 Sister 3 Sister 4 Social History Tobacco Use Types Packs/Day Years Used Date Smoking Tobacco: Never Smokeless Tobacco: Never Tobacco Cessation:Counseling Given: Not Answered Alcohol Use Standard Drinks/Week Comments No 0 (1 standard drink = 0.6 oz pur e alcohol) PHQ-2 Answer Date Recorded PHQ-2 Score 0 06/07/2019 Sexually Active Control Partners Comments Not Currently Comments No Sex and Gender Information Value Date Recorded Sex Assigned at Not on file Legal Sex Female 12:34 AM CDT Gender Identity Not on file Sexual Orientation Not on file Last Filed Vital Signs Vital Sign Reading Time Taken Comments Blood Pressure 129/67 07/30/2023 2:43 PM CDT Pulse 72 07/30/2023 2:43 PM CDT Temperature 37.2 ??C (98.9 ??F) 07/30/2023 2:43 PM CD T Respiratory Rate 18 07/30/2023 2:43 PM CDT Oxygen Saturation 99% 07/30/2023 2:43 PM CDT Inhaled Oxygen Concentration - - Weight 79.4 kg (175 lb) 07/30/2023 2:43 PM CDT Height 157.5 cm (5' 2 ) 07/30/2023 2:43 PM CDT Body Mass Index 32.01 07/30/2023 2:43 PM CDT Plan of Treatment Health Maintenance Due Date Last Done Comments Hepatitis C Virus (HCV) Screening 1945 TdaP Immunization 1945 Respiratory Syncytial Virus (RSV) Immunization (Adult) (1 - 1-dose 75+ series) 2022 DEXA Bone Density 07/17/2023 07/17/2021, , 12/30/2016 Influenza Immunization (#1) 2024 0911/2021, 07/06/2021, 06/28/2021, Additional history exists SARS-COV-2 Immunization ( season) 2024 04/09/2022, 12/19/2020, 12/01/2020 Colonoscopy High Risk Discontinued 12/06/2013 Colonoscopy Discontinued 12/06/2013 Colorectal Cancer Screening Discontinued Pneumococcal Immunization (65+ years) Completed 09/03/2018, 08/19/2017, 10/06/2011 Pneumococcal Immunization Combined Discontinued 09/03/2018, 08/19/2017, 10/06/2011 Mammogram Discontinued 04/20/2020, 04/05, 07/22/2016 Zoster Immunization Completed 07/10/2021, 05/10/2021, 12/04/2012 Cologuard Discontinued Hepatitis B Immunization Aged Out No longer eligible based on patient's age to complete this topic Immunochemical Fecal Occult Blood Discontinued Meningococcal Immunization (ACWY) Aged Out No longer eligible based on patient's age to complete this topic Rotavirus Immunization Aged Out No lo nger eligible based on patient's age to complete this topic Procedures Procedure Name Priority Date/Time Associated Diagnosis Comments [facility] BONE DENSITOMETRY AXIAL SKELETON Routine 07/17/2021 10:10 AM CDT Postmenopausal POLI SCREENING BILATERAL DIGITAL W CAD W YAYA Routine 04/20/2020 11:07 AM CDT Breast cancer screening by mammogram COLONOSCOPY Routine 12/06/2013 from Last 3 Months or Most Recently Relevant to Health Maintenance Results * [facility] BONE DENSITOMETRY AXIAL SKELETON (07/17/2021 10:10 AM CDT) Anatomical Region Laterality Modality BODY N/A Other 07/17/2021 3:37 PM CDT Impressions 07/17/2021 3:40 PM CDT IMPRESSION: ?? 1. Low bone mass by WHO criteria. 2. The WHO fracture risk assessment tool (FRAX) indicates that the 10 year risk for a major osteoporotic fracture is 20.7% and the 10 year risk for a hip fracture is 5.3%. The FRAX tool has not been validated in patients currently or previously treated with pharmacotherapy for osteoporosis. ??In such patients, clinical judgement must be exercised in interpreting FRAX scores as the fracture risk may be overestimated. ?? REFERENCE: ??Bone mineral density: ? Normal (T-score above or = -1.0) ? Low bone mass ??(T-score between -1.0 and -2.5) replaces the previously used term osteopenia ? Osteoporosis (T-score = or below -2.5) Medical evaluation for secondary causes of low bone mineral density may be appropriate. FRAX is a World Health Organization validated fracture risk assessment tool that calculates a person's 10 year probability of a major osteoporosis related fracture and hip fracture. ??According to the National Osteoporosis Foundation guidelines, postmenopausal women and men age 50 or older with low bone mass and a 10 year probability of a major osteoporosis related fracture = or greater than 20% or a 10 year probability of a hip fracture = or greater than 3% should be considered for treatment. For further information, including treatment recommendations, please refer to the 2013 ISCD Official Positions (http://www.iscd.org) and the NOF's Clinician's Guide to Prevention and Treatment of Osteoporosis (http://www.nof.org/professionals/clinical-guidelines) Narrative 07/17/2021 3:40 PM CDT EXAM DESCRIPTION: ?? POLI BONE DENSITOMETRY AXIAL SKELETON REASON FOR STUDY: ?? Post-menopausal female, screening for osteoporosis. 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 [email or web address] (S/N [id number]) CLINICAL INFORMATION: ??Current height: ??61 inches ? Maximum height: 63 inches ? Weight: 205 pounds Risk factors: History of a fracture as an adult, secondary osteoporosis COMPARISON: ?? 02/15/2019 FINDINGS: ??AP LUMBAR SPINE L1-L4: Total BMD is ??1.394 g/cm2 T-score is 1.6 Most recent prior BMD was 1.311 g/cm2 There has been a 6.3% increase in BMD which is statistically significant. RIGHT HIP: Current Total BMD is 0.802 g/cm2 T-score is -1.6 Most recent prior Total BMD was 0.847 g/cm2 There has been a 5.3% decrease in BMD which is statistically significant. Current femoral neck BMD is 0.713 g/cm2 T-score is -2.3 THIS IS AN ELECTRONICALLY VERIFIED FINAL REPORT 07/17/2021 3:37 PM - Electronically signed by Werner Ladd M.D. AB: AB D: ??07/17/2021 3:37 PM T: ??07/17/2021 3:37 PM Report ID: [id number] Reading Location: ??[id number] Procedure Note Werner Ladd MD - 07/17/2021 EXAM DESCRIPTION: POLI BONE DENSITOMETRY AXIAL SKELETON REASON FOR STUDY: Post-menopausal female, screening for osteoporosis. 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 RIGHT HIP: Current Total BMD is 0.802 g/cm2 T-score is -1.6 Most recent prior Total BMD was 0.847 g/cm2 There has been a 5.3% decrease in BMD which is statistically significant. Current femoral neck BMD is 0.713 g/cm2 T-score is -2.3 THIS IS AN ELECTRONICALLY VERIFIED FINAL REPORT 07/17/2021 3:37 PM - Electronically signed by Werner Ladd M.D. AB: Report ID: [id number] Reading Location: [id number] IMPRESSION: 1. Low bone mass by WHO criteria. 2. The WHO fracture risk assessment tool (FRAX) indicates that the 10 year risk for a major osteoporotic fracture is 20.7% and the 10 year risk for a hip fracture is 5.3%. The FRAX tool has not been validated in patients currently or previously treated with pharmacotherapy for osteoporosis. In such patients, clinical judgement must be exercised in interpreting FRAX scores as the fracture risk may be overestimated. REFERENCE: Bone mineral density: Normal (T-score above or = -1.0) Low bone mass (T-score between -1.0 and -2.5) replaces the previously used term osteopenia Osteoporosis (T-score = or below -2.5) Medical evaluation for secondary causes of low bone mineral density may be appropriate. FRAX is a World Health Organization validated fracture risk assessment tool that calculates a person's 10 year probability of a major osteoporosis related fracture and hip fracture. According to the National Osteoporosis Foundation guidelines, postmenopausal women and men age 50 or older with low bone mass and a 10 year probability of a major osteoporosis related fracture = or greater than 20% or a 10 year probability of a hip fracture = or greater than 3% should be considered for treatment. For further information, including treatment recommendations, please refer to the 2013 ISCD Official Positions (http://www.iscd.org) and the NOF's Clinician's Guide to Prevention and Treatment of Osteoporosis (http://www.nof.org/professionals/clinical-guidelines) us Cate Patel MD IMG DEXA ORDERABLES Final Re sult * POLI SCREENING BILATERAL DIGITAL W CAD W YAYA (04/20/2020 11:07 AM CDT) Anatomical Region Laterality Modality breast Bilateral Mammography 04/20/2020 10:0 8 AM CDT Narrative 04/24/2020 7:04 AM CDT - POLI SCREENING BILATERAL DIGITAL W CAD W YAYA BILATERAL DIGITAL SCREENING MAMMOGRAM 3D/2D WITH CAD WITH MEDIOLATERAL OBLIQUE CRANIOCAUDAL: 04/20/2020 The study was acquired using digital technology and interpreted from soft copy. ?? Current study was also evaluated with ICAD version 7.2. ?? CLINICAL: Routine screening. Before begining exam technologist noted a mild skin tear underneath her right breast. Patient stated that she has thin skin underneath her breasts due to profuse perspiration and she scratches the area as well. She was SOB today so exam was performed seated. She has limited ROM in both shoulders. Due to patient body habitus, additional images were taken in an effort to obtain adequate tissue. Patient has no complaints. No personal history of cancer. No family history of breast cancer. ?? COMPARISONS: Comparison is made to exams dated: ??04/18/2018, 07/22/2016, and 01/02/2015 [facility]. ?? BREAST TISSUE:There are scattered fibroglandular densities in both breasts. ?? FINDINGS: There are benign scattered calcifications in both breasts. No significant masses, calcifications, or other findings are seen in either breast. ?? There has been no significant interval change. IMPRESSION: BI-RAD 2 ??BENIGN There is no mammographic evidence of malignancy. A 1 year screening mammogram is recommended. ?? The patient has been or will be contacted. ?? The patient will be entered into a reminder system with a target due date of 1 year for her next screening exam. Electronically signed by: Mele Macedo M.D. ? ll/penrad:04/23/2020 15:55:32 ?? Grapple Operator: Fernanda RAMOS)(Abad), [facility] letter sent: Normal Exam ?? Reading location: [facility] BI-RADS: 2 Benign Procedure Note Mele Macedo MD - 04/24/2020 - POLI SCREENING BILATERAL DIGITAL W CAD W YAYA BILATERAL DIGITAL SCREENING MAMMOGRAM 3D/2D WITH CAD WITH MEDIOLATERAL OBLIQUE CRANIOCAUDAL: 04/20/2020 The study was acquired using digital technology and interpreted from soft copy. Current study was also evaluated with ICAD version 7.2. CLINICAL: Routine screening. Before begining exam technologist noted a mild skin tear underneath her right breast. Patient stated that she has thin skin underneath her breasts due to profuse perspiration and she scratches the area as well. She was SOB today so exam was performed seated. She has limited ROM in both shoulders. Due to patient body habitus, additional images were taken in an effort to obtain adequate tissue. Patient has no complaints. No personal history of cancer. No family history of breast cancer. COMPARISONS: Comparison is made to exams dated: 04/18/2018, 07/22/2016, and 01/02/2015 [facility]. BREAST TISSUE:There are scattered fibroglandular densities in both breasts. FINDINGS: There are benign scattered calcifications in both breasts. No significant masses, calcifications, or other findings are seen in either breast. There has been no significant interval change. IMPRESSION: BI-RAD 2 BENIGN There is no mammographic evidence of malignancy. A 1 year screening mammogram is recommended. The patient has been or will be contacted. The patient will be entered into a reminder system with a target due date of 1 year for her next screening exam. Electronically signed by: Mele gupta/giovanny:04/23/2020 15:55:32 Grapple Operator: Fernanda Paredes RT(R)(M), [facility] letter sent: Normal Exam Reading location: [facility] BI-RADS: 2 Benign us Cate Patel MD IMG MAMMO ORDERABLES Final R esult * [facility] COLONOSCOPY (12/06/2013) us Angeles Ortiz MD PROCEDURE/MINOR SURGICAL ORDE SOLITARIO Final Result from Last 3 Months or Most Recently Relevant to Health Maintenance Insurance I MEDICARE C [employer] Care Teams Jigger Artisan Relationship Specialty Start Date End Date Guerrero Nicholson MD [address] [facility] [address] [place] [address] PCP - General Neurology 07/30/23 Liliya Rai MD [address] [address] Consulting Physician Endocrinology 10/24/20 Vadim Browning MD [address] [address] Consulting Physician General Surgery 03/22/21 Sarah Borges MD [address] [address] Consulting Physician Endocrinology 03/22/21
--- OUTSIDE RECORDS SUMMARY | 2024-09-21 04:17 | XMS_ITS | Encounter Summary ---
Author Organization [facility] Address [address] 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 Name Role Phone Liliya Rai MD Unavailable Cate Patel MD Primary Care Provider [phone] Vadim Browning MD Unavailable Unavailable Sarah Borges MD Unavailable +- [phone] Guerrero Nicholson MD Primary Care Provider Reason for Visit * Reason Comments Medication Refill Encounter Details Date Type Department Care Team (Late st Contact Info) Description 07/31/2022 Refill [facility] - Primary Care - Saroj [address] [place] [address] Cate Patel MD [address] [place] [address] Medication Refill Social History Tobacco [...] Miscellaneous Notes * Telephone Encounter - Vira Shelton RN - 07/31/2022 3:54 PM CDT Medication failed the protocol, provider to review and approve the medication order if appropriate. Requested Prescriptions Pending Prescriptions Disp Refills levothyroxine (SYNTHROID) 75 MCG Tablet [Pharmacy Med Name: Levothyroxine Sodium 75 MCG Oral Tablet] 90 Tablet 0 Sig: Take 1 tablet by mouth once daily Thyroid Hormones Protocol Passed - 07/31/2022 3:53 PM Passed - Visit with relevant provider in past 12 months or upcoming 90 days Recent Visits Date Type Provider Dept 06/27/22 Office Visit Cate Patel MD [facility] 12/27/21 Office Visit Cate Patel MD [facility] Showing recent visits within past 365 days and meeting all other requirements Future Appointments No visits were found meeting these conditions. Showing future appointments within next 90 days and meeting all other requirements Passed - Normal TSH in past 12 months TSH Date Value Ref Range Status 06/24/2022 1.600 0.270 - 4.200 mIU/L Final simvastatin (ZOCOR) 5 MG Tablet [Pharmacy Med Name: Simvastatin 5 MG Oral Tablet] 90 Tablet 0 Sig: TAKE 1 TABLET BY MOUTH ONCE DAILY IN THE EVENING Hmg CoA Reductase Inhibitors Protocol Passed - 07/31/2022 3:53 PM Passed - Visit with relevant provider in past 12 months or upcoming 90 days Recent Visits Date Type Provider Dept 06/27/22 Office Visit Cate Patel MD [facility] 12/27/21 Office Visit Cate Patel MD [facility] Showing recent visits within past 365 days and meeting all other requirements Future Appointments No visits were found meeting these conditions. Showing future appointments within next 90 days and meeting all other requirements Passed - Lipid panel in past 12 months LDL Date Value Ref Range Status 06/24/2022 113 5 - 130 mg/dL Final HDL CHOLESTEROL Date Value Ref Range Status 06/24/2022 94.3 >40 mg/dL Final CHOLESTEROL Date Value Ref Range Status 06/24/2022 221 (H) <=200 mg/dL Final TRIGLYCERIDES Date Value Ref Range Status 06/24/2022 67 <150 mg/dL Final VLDL Date Value Ref Range Status 06/24/2022 13 5 - 55 mg/dL Final CHOL/HDL RATIO Date Value Ref Range Status 06/24/2022 2.3 0.0 - 4.4 Final NON-HDL CHOLESTEROL Date Value Ref Range Status 06/24/2022 126.7 <130 mg/dL Final Topiramate 50 MG Tablet [Pharmacy Med Name: Topiramate 50 MG Oral Tablet] 180 Tablet 0 Sig: Take 1 tablet by mouth twice daily Not Delegated - Anticonvulsants Excluding Benzodiazepines Protocol Failed - 07/31/2022 3:53 PM Failed - This refill cannot be delegated Passed - Visit with relevant provider in past 12 months or upcoming 90 days Recent Visits Date Type Provider Dept 06/27/22 Office Visit Cate Patel MD [facility] 12/27/21 Office Visit Cate Patel MD [facility] Showing recent visits within past 365 days and meeting all other requirements Future Appointments No visits were found meeting these conditions. Showing future appointments within next 90 days and meeting all other requirements omeprazole (PriLOSEC) 40 MG CAPSULE DELAYED RELEASE [Pharmacy Med Name: Omeprazole 40 MG Oral Capsule Delayed Release] 90 Capsule 0 Sig: Take 1 capsule by mouth once daily Proton Pump Inhibitors Protocol Passed - 07/31/2022 3:53 PM Passed - Visit with relevant provider in past 12 months or upcoming 90 days Recent Visits Date Type Provider Dept 06/27/22 Office Visit Cate Patel MD [facility] 12/27/21 Office Visit Cate Patel MD [facility] Showing recent visits within past 365 days and meeting all other requirements Future Appointments No visits were found meeting these conditions. Showing future appointments within next 90 days and meeting all other requirements dilTIAZem (CARDIZEM CD) 240 MG CAPSULE SR 24 HR [Pharmacy Med Name: dilTIAZem HCl ER Coated Beads 240 MG Oral Capsule Extended Release 24 Hour] 90 Capsule 0 Sig: Take 1 capsule by mouth once daily Calcium-Channel Blockers Protocol Passed - 07/31/2022 3:53 PM Passed - BP on record in the past year Clinician-entered: BP Readings from Last 3 Encounters: 06/27/22 126/72 06/27/22 120/62 04/25/22 106/54 Patient-entered: No data recorded Passed - Visit with relevant provider in past 12 months or upcoming 90 days Recent Visits Date Type Provider Dept 06/27/22 Office Visit [facility] [address] 12/27/21 Office Visit Cate Patel MD [facility] [address] Showing recent visits within past 365 days and meeting all other requirements Future Appointments No visits were found meeting these conditions. Showing future appointments within next 90 days and meeting all other requirements lisinopril-hydroCHLOROthiazide (PRINZIDE, ZESTORETIC) 20-25 MG Tablet [Pharmacy Med Name: Lisinopril-hydroCHLOROthiazide 20-25 MG Oral Tablet] 90 Tablet 0 Sig: Take 1 tablet by mouth once daily Nando Inhibitors and Diuretics Combo Protocol Passed - 07/31/2022 3:53 PM Passed - Serum potassium on record in past 12 months POTASSIUM Date Value Ref Range Status 06/24/2022 3.9 3.5 - 5.1 mmol/L Final Passed - Serum sodium on record in past 12 months SODIUM Date Value Ref Range Status 06/24/2022 134 (L) 136 - 144 mmol/L Final Passed - Blood pressure on record in past 12 months Clinician-entered: BP Readings from Last 3 Encounters: 06/27/22 126/72 06/27/22 120/62 04/25/22 106/54 Patient-entered: No data recorded Passed - Visit with relevant provider in past 12 months or upcoming 90 days Recent Visits Date Type Provider Dept 06/27/22 Office Visit [facility]ate [facility] [address] 12/27/21 Office Visit Cate Patel MD [facility] [address] Showing recent visits within past 365 days and meeting all other requirements Future Appointments No visits were found meeting these conditions. Showing future appointments within next 90 days and meeting all other requirements Passed - GFR on record in past 12 months GFR, EST. NONAFRICAN Date Value Ref Range Status 06/24/2022 40 (L) >=60 Final documented in this encounter Plan of Treatment Not on file documented as of this encounter Visit Diagnoses Diagnosis Acquired hypothyroidism Unspecified hypothyroidism Hyperlipidemia, unspecified hyperlipidemia type Obesity, Class III, BMI 40-49.9 (morbid obesity) (HCC) Morbid obesity Gastroesophageal reflux disease without esophagitis Esophageal reflux Essential hypertension Unspecified essential hypertension documented in this encounter Additional Health Concerns Assessment Noted Time PHQ-9 Depression Total Score: 0 08/30/20 19 3:00 PM LAW CLERK documented as of this encounter Care Teams [employer] Freight Car Cleaner Relationship Specialty Start Date End Date Cate Patel MD [address] [place] [address] PCP - General Family Medicine 12/11/20 03/05/23 Guerrero Nicholson MD [facility] [address] [place] [address] PCP - General Neurology 07/30/23 Liliya Rai MD [address] [phone] Consulting Physician Endocrinology 10/24/20 Vadim Browning MD [address] [place] [address] Consulting Physician General Surgery 03/22/21 Sarah Borges MD [address] [place] [address] Consulting Physician Endocrinology 03/22/21 documented as of this encounter
--- OUTSIDE RECORDS SUMMARY | 2024-09-21 04:17 | XMS_ITS | Encounter Summary ---
Author Organization [facility] Care Team Providers Care Barrel Filler Name Role Phone Liliya Rai MD Unavailable Cate Patel MD Primary Care Provider + [phone] Vadim Browning MD Unavailable Unavailable Sarah Borges MD Unavailable [phone] Encounter Details Date Type Department Care Team (Latest Contact Info) Description 04/25/2022 Travel Social History Tobacco Use Types Packs/Day [...] suspected to have Coronavirus/COVID-19? No / Unsure 04/25/2022 9:13 AM CDT documented as of this encounter Plan of Treatment Not on file documented as of this encounter Visit Diagnoses Not on filedocumented in this encounter Additional Health Concerns Assessment Noted Time PHQ-9 Depression Total Score: 0 08/30/20 19 3:00 PM PRODUCT AMBASSADOR documented as of this encounter Care Teams Barrel Filler Relationship Specialty Start Date End Date Cate Patel MD [address] [place] [address] PCP - General Family Medicine 12/11/20 03/05/23 Liliya Rai MD [address] [phone] Consulting Physician Endocrinology 10/24/20 Vadim Browning MD [address] [place] [address] Consulting Physician General Surgery 03/22/21 Sarah Borges MD [address] [place] [address] Consulting Physician Endocrinology 03/22/21 documented as of this encounter
--- OUTSIDE RECORDS SUMMARY | 2024-09-21 04:17 | XMS_ITS | Encounter Summary ---
Author Organization [facility] Address [address] [facility] [place] [address] Phone Care Team Providers Care Milled Rice Broker Name Role Phone Liliya Rai MD Unavailable Vadim Browning MD Unavailable Unavailable Sarah Borges MD Unavailable [phone] Guerrero Nicholson MD Primary Care Provider Encounter Details Date Type Department Care Team (Late st Contact Info) Description 07/01/2023 Telephone [facility] On[facility] Services [address] [place] [address] Judy Sosa [place] Social History Tobacco Use Types Packs/Day Years [...] PM CDT documented as of this encounter Miscellaneous Notes * Telephone Encounter - Judy Sosa MA - 07/03/2023 3:53 PM CDT Pt advised--tjo * Telephone Encounter - Judy Sosa MA - 07/01/2023 2:44 PM CDT Pt left message on vm. She has an appt coming up that requires her to have labs drawn. She is asking if she can get labs done the same day as she will not have transportation to get her to the lab a few days prior to appt AND her appt day. Please advise as to what to tell the pt as if she goes the same day, her labs will most likely not be finalized. documented in this encounter Plan of Treatment Not on file documented as of this encounter Visit Diagnoses Not on filedocumented in this encounter Additional Health Concerns Assessment Noted Time PHQ-9 Depression Total Score: 0 08/30/20 19 3:00 PM PACKER AND CARRY OUT documented as of this encounter Care Teams Milled Rice Broker Relationship Specialty Start Date End Date Guerrero Nicholson MD [address] [facility] [address] [place] [address] PCP - General Neurology 07/30/23 Liliya Rai MD [address] [address] Consulting Physician Endocrinology 10/24/20 Vadim Browning MD [address] [address] Consulting Physician General Surgery 03/22/21 Sarah Borges MD [address] [address] Consulting Physician Endocrinology 03/22/21 documented as of this encounter
--- OUTSIDE RECORDS SUMMARY | 2024-09-21 04:17 | XMS_ITS | Encounter Summary ---
Author Organization [facility] Address [address] [place] [address] Phone Care Team Providers Care Industrial Welder Name Role Phone Liliya Rai MD Unavailable Vadim Browning MD Unavailable Unavailable Sarah Borges MD Unavailable [phone]- [phone] Reason for Visit * Reason Onset Date Comments Results 04/22/2023 Encounter Details Date Type Department Care Team (Late st Contact Info) Description 04/22/2023 Telephone [facility] [address] [place] [address] Provider, None [place] Results Social History Tobacco Use Types Packs/Day [...] encounter Miscellaneous Notes * Telephone Encounter - Lalita Bradley RN - 04/22/2023 10:30 AM CDT Patient calling for results of MRI. Patient does not have PCP. MRI ordered by Sindhu Thomason NP. Patient warm transferred to [facility] with neurosurgery. 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
--- OUTSIDE RECORDS SUMMARY | 2024-09-21 04:17 | XMS_ITS | Encounter Summary ---
Author Organization [facility] Address [address] [facility] [place] [address] Phone Care Team Providers Care Prosthetic Dentist Name Role Phone Liliya Rai MD Unavailable Cate Patel MD Primary Care Provider + [phone] Vadim Browning MD Unavailable Unavailable Sarah Borges MD Unavailable [phone] Reason for Visit * Reason Comments Follow-up * Auth/Cert Specialty Diagnoses / Procedures Referred By Contac t Referred To Contact Referral ID Status Reason Start Date Expiration Date Visits Re quested Visits Authorized [id number] 1 1 Encounter Details Date Type Department Care Team (Late st Contact Info) Description 12/24/2021 1:00 PM CDT [facility] [address] [place] [phone] Tania Timmons, RUG DESIGNER, MANAGER VISUAL [address] [place] [address] CKD (chronic kidney disease) stage 1, GFR 90 ml/min or greater (Primary Dx); Iron deficiency anemia due to chronic blood loss Discharge Disposition: Discharged to home or Selfcare [...] suspected to have Coronavirus/COVID-19? No / Unsure 12/24/2021 12:48 PM CDT documented as of this encounter Last Filed Vital Signs Vital Sign Reading Time Taken Comments Blood Pressure 114/62 12/24/2021 1:10 PM CDT Pulse 90 12/24/2021 1:10 PM CDT Temperature 37.3 ??C (99.1 ??F) 12/24/2021 1:10 PM CD T Respiratory Rate 19 12/24/2021 1:10 PM CDT Oxygen Saturation 98% 12/24/2021 1:10 PM CDT Inhaled Oxygen Concentration - - Weight 92.2 kg (203 lb 4.8 oz) 12/24/2021 1:10 P M CDT Height 157.5 cm (5' 2 ) 12/24/2021 1:10 PM CDT Body Mass Index 37.18 12/24/2021 1:10 PM CDT documented in this encounter Progress Notes * Tania Timmons APRN, CNP - 12/24/2021 1:00 PM CDT Outpatient Hem/Onc Progress Note Chief Complaint: Iron deficiency anemia. Silvia Boss is a 76 y.o. female seen today for follow up of iron deficiency anemia. Patient c/ochronic fatigue. Patient has h/o CKD and hiatal hernia that contributes to JUAN MANUEL. Patient comes in today with no new complaints. Patient is depressed and grieving due to of her son in July 2021. Outpatient Medications Marked as Taking for the 12/24/21 encounter (Office Visit) with Tnaia Timmons APRN, CNP Medication Sig Dispense Refill ??? Aspirin 81 MG Tablet Take 81 mg by mouth daily. ??? Calcium Carbonate-Vitamin D (CALCIUM 500 + D PO) Take 1 Tab by mouth daily. ??? Cholecalciferol (VITAMIN D3) 1000 UNIT Tablet Take 1,000 Units by mouth daily. ??? dilTIAZem (CARDIZEM CD) 240 MG CAPSULE SR 24 HR Take 1 capsule by mouth once daily 90 Capsule 1 ??? levothyroxine (SYNTHROID) 75 MCG Tablet Take 1 tablet by mouth once daily 90 Tablet 1 ??? lisinopril-hydroCHLOROthiazide (PRINZIDE, ZESTORETIC) 20-25 MG Tablet Take 1 tablet by mouth once daily 90 Tablet 1 ??? Loperamide HCl (IMODIUM) 2 MG Tablet Take 1 Tab by mouth daily as needed. ??? meclizine (ANTIVERT) 25 MG Tablet Take 1 Tablet by mouth every 8 hours as needed for Dizziness.90 Tablet 1 ??? Melatonin 5 MG Capsule Take 5 mg by mouth nightly. ??? omeprazole (PriLOSEC) 40 MG CAPSULE DELAYED RELEASE Take 1 capsule by mouth once daily 90 Capsule 0 ??? simvastatin (ZOCOR) 5 MG Tablet Take 1 Tablet by mouth every evening. 90 Tablet 1 ??? Topiramate 50 MG Tablet Take 1 tablet by mouth twice daily 180 Tablet 0 ??? Zinc Sulfate (ZINCATE PO) Take 1 Tab by mouth daily. Allergies as of 12/24/2021 ??? (No Known Allergies) ECO VITAL SIGNS: Vitals: 12/24/21 1310 BP: 114/62 BP Location: Left Arm BP Position: Sitting BP Cuff Size: Regular Pulse: 90 Resp: 19 Temp: 99.1 ??F (37.3 ??C) SpO2: 98% Weight: 203 lb 4.8 oz (92.2 kg) Height: 5' 2 (1.575 m) Physical Exam A&Ox3 HRRR L, CTA Abdomen soft, obese bowel sounds positive, nontender to palpation Ambulates with cane. Labs: Lab Results Component Value Date WBC 6.84 12/19/2021 RBC 3.82 12/19/2021 HEMOGLOBIN 11.6 (L) 12/19/2021 HEMATOCRIT 36.1 12/19/2021 MCV 94.5 12/19/2021 MCH 30.4 12/19/2021 MCHC 32.1 12/19/2021 PLATELETCNT 278 12/19/2021 RDW 13.2 12/19/2021 LYMPHOCYTES 13.5 (L) 12/19/2021 RELEOS 2.5 12/19/2021 RELBAS 0.9 12/19/2021 ANC 5.22 12/19/2021 MONOCYTES 0.47 12/19/2021 EOSINOPHILS 0.17 12/19/2021 BASOPHILS 0.06 12/19/2021 Lab Results Component Value Date SODIUM 140 12/19/2021 POTASSIUM 4.3 12/19/2021 CHLORIDE 105 12/19/2021 ANIONGAP 16.3 12/19/2021 GLUCOSE 108 (H) 12/19/2021 BUN 27 (H) 12/19/2021 CREATININE 1.25 (H) 12/19/2021 TOTALPROTEIN 6.9 12/19/2021 ALBUMIN 4.5 12/19/2021 CALCIUM 9.6 12/19/2021 SGPTALT 9 12/19/2021 ALKALINEPHO 70 12/19/2021 Ref. Range 12/19/2021 10:30 GFR, EST. NONAFRICAN Latest Ref Range: >=60 42 (L) DIAGNOSTIC IMAGING STUDIES: 04/18/2021: MRI of Brain: IMPRESSION: Mildly enhancing lesion arising from the left inferior aspect of the sella, extending to the sphenoid sinus, grossly similar to prior exam, which could represent possible pituitary adenoma, with differential considerations including schwannoma or other primary sinonasal lesions. Assessment: 1. ??Iron deficiency. 2. Mild chronic Anemia 3. ??Hiatal hernia. 4. ??Pituitary tumor 5. ??Hiatal hernia ?? Plan: 1. Iron deficiency. Stable. 2. Mild chronic Anemia, multifactorial etiology including chronic kidney disease. Bone marrow bx Nov 2018 unremarkable 3. ??Hiatal hernia. 4. ??Pituitary tumor: MRI 04/18/2021 possible pituitary adenoma: FU with Endocrinology/ neurology. 5. ??Hiatal hernia- continue FU with GI RTC: 6 months. Labs: CBC, CMP, iron profile and ferritin. Total time spent on this encounter on this date of service, including pre-visit review of separately obtained history, [id number] interaction performing medically appropriate physical exam, patientcounseling/education, interpretation of diagnostic results, care coordination and documentation was30 minutes. The patient was given an opportunity to ask questions, and all questions answered to patient's satisfaction. Patient verbalizes understanding of the plan as outlined above. Tania Timmons APN, CNP 12/24/2021 4:36 PM CDT documented in this encounter Miscellaneous Notes * Interdisciplinary - Judy Sosa MA - 12/24/2021 1:00 PM CDT Follow up. C/O head, shoulder and hip pain. 5/10 pain score. Per pt, her meds are unchanged--tjo documented in this encounter Plan of Treatment Scheduled Orders Name Type Priority Associated Diagnoses Orde r Schedule CMP (COMPREHENSIVE METABOLIC PANEL) Lab Routine CKD (chronic kidney disease) stage 1, GFR 90 ml/min or greater Expected: 06/11/2022, Expires: 06/12/2023 COMPLETE BLOOD COUNT (CBC) WITH DIFF Lab Routine CKD (chronic kidney disease) stage 1, GFR 90 ml/min or greater Expected: 06/11/2022, Expires: 06/12/2023 IRON W/IRON BINDING CAPACITY Lab Routine Iron deficiency anemia due to chronic blood loss Expected: 06/11/2022, Expires: 06/12/2023 FERRITIN Lab Routine Iron deficiency anemia due to chronic blood loss Expected: 06/11/2022, Expires: 06/12/2023 documented as of this encounter Visit Diagnoses Diagnosis CKD (chronic kidney disease) stage 1, GFR 90 ml/min or greater- Primary Chronic kidney disease, Stage I Iron deficiency anemia due to chronic blood loss Iron deficiency anemia secondary to blood loss (chronic) documented in this encounter Additional Health Concerns Assessment Noted Time PHQ-9 Depression Total Score: 0 08/30/20 19 3:00 PM CIRCLE BEVELER documented as of this encounter Care Teams Prosthetic Dentist Relationship Specialty Start Date End Date Cate Patel MD [address] [place] [address] PCP - General Family Medicine 3/8/21 5/31/23 Liliya Rai MD [address] [phone] Consulting Physician Endocrinology 10/24/20 Vadim Browning MD [address] [place] [address] Consulting Physician General Surgery 03/22/21 Sarah Borges MD [address] [place] [address] Consulting Physician Endocrinology 03/22/21 documented as of this encounter
--- OUTSIDE RECORDS SUMMARY | 2024-09-21 04:17 | XMS_ITS | Encounter Summary ---
Author Organization [facility] Address [address] [place] [address] Phone Care Team Providers Care Senior Quality Assurance Specialist Name Role Phone Liliya Rai MD Unavailable Cate Patel MD Primary Care Provider [phone] Vadim Browning MD Unavailable Unavailable Sarah Borges MD Unavailable [phone] Reason for Visit * Reason Onset Date Comments Form Completion 02/26/2022 Encounter Details Date Type Department Care Team (Late st Contact Info) Description 02/26/2022 Telephone [facility] [address] [place] [address] Cate Patel MD [address] [place] [address] Form Completion Social History Tobacco Use Types Packs/Day Years [...] Telephone Encounter - Evonne Altamirano RN - 03/05/2022 1:28 PM CDT Form completed and mailed to [facility]. * Telephone Encounter - Macie Hanson - 02/26/2022 10:13 AM CDT Patient calling stating she will be dropping off a Parking Placard to be filled out. She has completed her portion. documented in this encounter Plan of Treatment Not on file documented as of this encounter Visit Diagnoses Not on filedocumented in this encounter Additional Health Concerns Assessment Noted Time PHQ-9 Depression Total Score: 0 08/30/20 19 3:00 PM WELDING INSTRUCTOR documented as of this encounter Care Teams Senior Quality Assurance Specialist Relationship Specialty Start Date End Date Cate Patel MD [address] [place] [address] PCP - General Family Medicine 12/11/20 03/05/23 Liliya Rai MD [address] [phone] Consulting Physician Endocrinology 10/24/20 Vadim Browning MD [address] [place] [address] Consulting Physician General Surgery 03/22/21 Sarah Borges MD [address] [place] [address] Consulting Physician Endocrinology 03/22/21 documented as of this encounter
--- OUTSIDE RECORDS SUMMARY | 2024-09-21 04:17 | XMS_ITS | Encounter Summary ---
Author Organization [facility] Address [address] [place] [address] Phone Care Team Providers Care Slider Assembler Name Role Phone Liliya Rai MD Unavailable Cate Patel MD Primary Care Provider [phone] Vadim Browning MD Unavailable Unavailable Sarah Borges MD Unavailable [phone] Reason for Visit * Reason Onset Date Comments Medication Management 09/10/2022 Encounter Details Date Type Department Care Team (Late st Contact Info) Description 09/10/2022 Telephone [facility] [address] [place] [address] Cate Patel MD [address] [place] [address] Medication Management Social History Tobacco Use Types Packs/Day Years [...] Telephone Encounter - Evonne Altamirano RN - 09/10/2022 3:13 PM CST Patient aware and verbalized understanding. No questions for curriculum writer. CLE MECHANIC * Telephone Encounter - Cate Patel MD - 09/10/2022 12:27 PM BICYCLE MECHANIC Refilled all prescription medications. CLE MECHANIC * Telephone Encounter - Bella Mcknight RN - 09/10/2022 11:46 AM CST Patient is calling to have all her medications refilled a little early because after the end of themonth she will no longer have insurance or be able to afford her medications. Please advise. CLE MECHANIC documented in this encounter Plan of Treatment Not on file documented as of this encounter Visit Diagnoses Diagnosis Essential hypertension Unspecified essential hypertension Acquired hypothyroidism Unspecified hypothyroidism Benign paroxysmal positional vertigo, unspecified laterality Gastroesophageal reflux disease without esophagitis Esophageal reflux Hyperlipidemia, unspecified hyperlipidemia type Obesity, Class III, BMI 40-49.9 (morbid obesity) (HCC) Morbid obesity documented in this encounter Additional Health Concerns Assessment Noted Time PHQ-9 Depression Total Score: 0 08/30/20 19 3:00 PM BICYCLE MECHANIC documented as of this encounter Care Teams Slider Assembler Relationship Specialty Start Date End Date Cate Patel MD [address] [place] [address] PCP - General Family Medicine 12/11/20 03/05/23 Liliya Rai MD [address] [address] Consulting Physician Endocrinology 10/24/20 Vadim Browning MD [address] [place] [address] Consulting Physician General Surgery 03/22/21 Sarah Borges MD [address] [place] [address] Consulting Physician Endocrinology 03/22/21 documented as of this encounter
--- OUTSIDE RECORDS SUMMARY | 2024-09-21 04:17 | XMS_ITS | Patient Health Summary ---
Author Organization [facility] Address [address] [place] [address] Care Team Providers Care Shearing Shed Worker Name Role Phone Unavailable Primary Care Provider Unavailabl e Note from [facility] [place] [facility] [place]non-owned Affiliates and Associated Physician Practices is amultiple site organization consisting of ambulatory clinics and hospital sitesin [place], [place], [place] and [place]. This disclosure is being madepursuant to the Care Everywhere program and may not contain all information available regarding this patient. Last updated 18.[facility] Social History Tobacco Use Types Packs/Day Years Used Date Smoking Tobacco: Never Assessed Sex and Gender Information Value Date Recorded Sex Assigned at Not on file Gender Identity Not on file Sexual Orientation Not on file Procedures * BONE MARROW BIOPSY (STL)(Performed 11/11/2018) * FLOW CYTOMETRY BONE MARROW(Performed 11/11/2018) Performed for Anemia Results * FLOW CYTOMETRY BONE MARROW (11/11/2018 8:16 AM [facility]) Case Report Flow Cytometry ?Case: [id number] ? Authorizing Provider: ??Madelyn Fontanez MD ? Collected: ? 11/11/2018 08:16 AM ? Pathologist: ? Goyo Rose MD ? Received: ?11/11/2018 02:44 PM ? Specimen: ?Bone Marrow ? 11/12/2018 10:14 AM [facility] Final Diagnosis Bone marrow, flow cytometric immunophenotypic analysis: - No evidence of non-Hodgkin lymphoma or high grade myeloid neoplasm - See interpretation. 11/12/2018 10:14 AM [facility] Flow Cytometry Interpretation The bone [...] the flow cytometry specimen is reviewed for it quality assurance analyst purposes. Overall, the bone marrow aspirate specimen shows no evidence of involvement by non-Hodgkin lymphoma or a high-grade myeloid neoplasm. Correlation with clinical findings, concurrent bone marrow core biopsy ([id number]), and relevant cytogenetic/molecu lar studies is required. 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 A Flow CD10 A Flow CD13 A Flow CD20 A Flow CD5 A Flow CD19 A Flow CD33 A Flow CD34 A Flow CD45 A [place]+CD19+ A Lambda+CD19+ 11/12/2018 10:14 AM [facility] Disclaimer Test performed at [facility], [address], [place], [place], [address]. *The established laboratory minimum viability is 70%. [...] high complexity clinical testing. 11/12/2018 10:14 AM [facility] Embedded Images 10:14 AM [facility] Pathology/Cytolo gy BONE MARROW SPECIMEN / Unknown 11/11/2018 8:16 AM [facility] 11/11/2018 2:44 PM [facility] Madelyn Fontanez MD LAB - PATHOLOGY/CYTO LOGY ORDERABLES Performing Organization Address [facility]/State/ZIP Co de Phone Number [facility] [address] [place] [address]. [place] [address], [facility] [phone] * BONE MARROW BIOPSY (STL) (11/11/2018 8:16 AM [facility]) Case Report Bone Marrow Patholog y Report ?Case: [id number] ? Authorizing Provider: ??Madelyn Fontanez MD ? Collected: ? 11/11/2018 08:16 AM ? Pathologist: ? Goyo Rose MD ? Received: ?11/12/2018 02:18 PM ? Specimens: ?? A) - Bone Marrow Core, [id number] ? B) - Bone Marrow Clot, [id number] ? C) - Bone Marrow Aspirate, [id number] ? D) - Blood Peripheral, [id number] ? 11/13/2018 3:18 PM [facility] Final Diagnosis Bone marrow, aspirate, clot section, and core biopsy: - Normocellular marrow with maturing trilineage hematopoiesis. - No evidence of lymphoma or high-grade myeloid neoplasm. - See description. Peripheral blood smear: - Mild hypochromic, macrocytic anemia. 11/13/2018 3:18 PM [facility] Comment Overall, the bone marrow specimen is normocellular for age with maturing trilineage hematopoiesis and no evidence of lymphoma, a high-grade myeloid neoplasm, or significant dyspoiesis. Concurrent bone marrow flow cytometry ([id number]) demonstrates no evidence of non-Hodgkin lymphoma or a high-grade myeloid neoplasm. Non neoplastic conditions such as autoimmune, infectious, nutritional deficiency, peripheral destruction, marrow toxicity or medications must be ruled out. Low grade myelodysplastic condition cannot be ruled out and may be considered especially if cytogenetic clonal abnormality is detected. Correlation with clinical findings and relevant cytogenetic/molecular testing is required. SPECIALTY FO[employer] PRODUCTS SUPERVISOR/ 11/13/2018 3:18 PM [facility] Peripheral Smear Description Manual Differential Count (100 cells): 81% neutrophils, 13% lymphocytes, 4% monocytes, 2% eosinophils. Leukocyte number: normal. Granulocyte morphology: normal. No circulating blasts. Lymphocyte morphology: Normal. A few larger lymphocytes with moderate amount of cytoplasm. Erythrocyte number: decreased. Erythrocyte morphology: mildly macrocytic. Anisopoikilocytosis: not signifcant. Polychromasia: not significant. Platelet number: normal. Platelet morphology: normal. 11/13/2018 3:18 PM [facility] Bone Marrow Aspirate Differential count (200 cells): 1% blasts, 59.5% maturing myeloid precursors, 28% erythroid progenitors, 4.5% eosinophils, 6.5% lymphocytes, 0.5% plasma cells. Specimen quality: adequate. Spicules: present. Trilineage Hematopoiesis: present. Myeloid:Erythroid ratio: normal; 2.3:1. Myeloid Maturation: Normal. No significant dyspoiesis Erythroid Maturation: Normal. No significant dyspoiesis. No increase in blasts Megakaryocyte morphology: A few hypolobate nuclei seen. No significant dyspoiesis. Storage iron (by special stain): adequate. Sideroblastic iron (by special stain): decreased. no ring sidersblasts. All controls worked appropriately. 11/13/2018 3:18 PM [facility] Bone Marrow Core Biopsy and Clot Section Description Specimen quality: adequate. Cellularity: 30-40 % Trilineage Hematopoiesis: adequate. Myeloid to Erythroid ratio: normal. Myeloid maturation and localization: normal. Erythroid maturation and localization: normal. Megakaryocyte number: normal. Megakaryocyte distribution: normal. Lymphoid aggregates: absent. Bone trabeculae: normal. Blood vessels: normal Other: No sheets or large clusters of blasts seen. No granulomas identified. Iron stain (special stain): Stainable storage iron seen (control is appropriate) Reticulin (special stain): No pathologic increase in reticulin fibrosis (control is appropriate). Clot section marrow particles: present. Clot section morphology: similar to core biopsy. Clot section iron stain (special stain): Stainable storage iron seen (control is appropriate) 11/13/2018 3:18 PM [facility] Flow Cytometry Summary Concurrent flow cytometry ([id number]) shows no evidence of non Hodgkin lymphoma or high grade myeloid neoplasm. 11/13/2018 3:18 PM [facility] Clinical History The patient is 73 year-old woman with history of iron deficiency anemia and chronic fatigue with recent history of cellulitis of left breast and chest wall. 11/13/2018 3:18 PM [facility] Materials Received Received are 10 slides labeled as [id number] along with the outside pathology report. The materials originate from [facility], [address] [place] [address]. All materials are returned to the referring institution, along with a copy of our final report. 11/13/2018 3:18 PM [facility] Disclaimer The performance characteristics of all immunohistochemical and indirect immunofluorescence stains (if any) cited in this report were determined by the Histopathology Laboratory of [facility]. Some of these tests were developed by our own laboratory and have not been cleared or approved by the US Food and Drug Administration. The FDA does not require this test to go through premarket FDA review. These tests are used for clinical purposes. They should not be regarded as investigational or for research. This laboratory is certified under the Clinical Laboratory Improvement Amendments (CLIA) as qualified to perform high complexity clinical laboratory testing. This case has been personally reviewed and interpreted by the attending (teaching) pathologist. 11/13/2018 3:18 PM [facility] Embedded Images 11/13/2018 3:18 PM [facility] Pathology/Cytology PERIPHERAL BLOOD / Unknown 11/11/2018 8:16 AM [facility] 11/12/2018 2:18 PM [facility] Miscellaneous samples (specimen) BONE MARROW CLOT SPECIMEN / Unknown 11/11/2018 8:16 AM [facility] 11/12/2018 2:18 PM [facility] Miscellaneous samples (specimen) SPECIMEN FROM BONE MARROW OBTAINED BY ASPIRATION / Unknown 11/11/2018 8:16 AM [facility] 11/12/2018 2:18 PM [facility] Miscellaneous samples (specimen) PERIPHERAL BLOOD / Unknown 11/11/2018 8:16 AM [facility] 11/12/2018 2:18 PM [facility] Madelyn Fontanez MD LAB - PATHOLOGY/CYTO LOGY ORDERABLES [facility] [address] [facility] [place] [address], [facility] [phone]
--- OUTSIDE RECORDS SUMMARY | 2024-09-21 04:17 | XMS_ITS | Encounter Summary ---
Author Organization [facility] Address [address] [place] [address] Phone Care Team Providers Care Plater Apprentice Name Role Phone Liliya Rai MD Unavailable Cate Patel MD Primary Care Provider [phone] Vadim Browning MD Unavailable Unavailable Sarah Borges MD Unavailable [phone]- [phone] Guerrero Nicholson MD Primary Care Provider Reason for Visit * Reason Comments Medication Refill Encounter Details Date Type Department Care Team (Late st Contact Info) Description 04/29/2022 Refill [facility] - Primary Care - [facility] [address] [place] [address] Cate Patel MD [address] [place] [address] Medication Refill Social History Tobacco [...] AM CDT documented as of this encounter Miscellaneous Notes * Telephone Encounter - Rosalba Black RN - 04/29/2022 11:10 AM CDT Medication failed the protocol, provider to review and approve the medication order if appropriate. Requested Prescriptions Pending Prescriptions Disp Refills Topiramate 50 MG Tablet [Pharmacy Med Name: Topiramate 50 MG Oral Tablet] 180 Tablet 0 Sig: Take 1 tablet by mouth twice daily Not Delegated - Anticonvulsants Excluding Benzodiazepines Protocol Failed - 04/29/2022 11:03 AM Failed - This refill cannot be delegated Passed - Visit with relevant provider in past 12 months or upcoming 90 days Recent Visits Date Type Provider Dept 12/27/21 Office Visit Cate Pat[facility] MD [facility] [address] 06/28/21 Office Visit Cate Patel MD [facility] [address] [facility] Showing recent visits within past 365 days and meeting all other requirements Future Appointments Date Type Provider Dept 06/27/22 Appointment Cate Patel MD [facility] [facility] Showing future appointments within next 90 days and meeting all other requirements Signed Prescriptions Disp Refills levothyroxine (SYNTHROID) 75 MCG Tablet 90 Tablet 0 Sig: Take 1 tablet by mouth once daily Thyroid Hormones Protocol Passed - 04/29/2022 11:03 AM Passed - Visit with relevant provider in past 12 months or upcoming 90 days Recent Visits Date Type Provider Dept 12/27/21 Office Visit Cate Patel MD [facility] [address] [facility] 06/28/21 Office Visit Cate Patel MD [facility] [address] [facility] Showing recent visits within past 365 days and meeting all other requirements Future Appointments Date Type Provider Dept 06/27/22 Appointment Cate Patel MD [facility] Show[facility] future appointments within next 90 days and meeting all other requirements Passed - Normal TSH in past 12 months TSH Date Value Ref Range Status 12/19/2021 1.100 0.270 - 4.200 mIU/L Final dilTIAZem (CARDIZEM CD) 240 MG CAPSULE SR 24 HR 90 Capsule 0 Sig: Take 1 capsule by mouth once daily Calcium-Channel Blockers Protocol Passed - 04/29/2022 11:03 AM Passed - BP on record in the past year Clinician-entered: BP Readings from Last 3 Encounters: 04/25/22 106/54 12/27/21 126/74 12/24/21 114/62 Patient-entered: No data recorded Passed - Visit with relevant provider in past 12 months or upcoming 90 days Recent Visits Date Type Provider Dept 12/27/21 Office Visit Cate Patel MD [facility] 06/28/21 Office Visit Cate Patel MD [facility] Showing recent visits within past 365 days and meeting all other requirements Future Appointments Date Type Provider Dept 06/27/22 Appointment Cate Patel MD [facility] future appointments within next 90 days and meeting all other requirements simvastatin (ZOCOR) 5 MG Tablet 90 Tablet 0 Sig: TAKE 1 TABLET BY MOUTH ONCE DAILY IN THE EVENING Hmg CoA Reductase Inhibitors Protocol Passed - 04/29/2022 11:03 AM Passed - Visit with relevant provider in past 12 months or upcoming 90 days Recent Visits Date Type Provider Dept 12/27/21 Office Visit Cate Patel MD [facility] 06/28/21 Office Visit Cate Patel MD [facility] Show[facility] recent visits within past 365 days and meeting all other requirements Future Appointments Date Type Provider Dept 06/27/22 Appointment Cate Patel MD [facility] Show[facility] future appointments within next 90 days and meeting all other requirements Passed - Lipid panel in past 12 months LDL Date Value Ref Range Status 12/19/2021 117 5 - 130 mg/dL Final HDL CHOLESTEROL Date Value Ref Range Status 12/19/2021 88.1 >40 mg/dL Final CHOLESTEROL Date Value Ref Range Status 12/19/2021 223 (H) <=200 mg/dL Final TRIGLYCERIDES Date Value Ref Range Status 12/19/2021 89 <150 mg/dL Final VLDL Date Value Ref Range Status 12/19/2021 18 5 - 55 mg/dL Final CHOL/HDL RATIO Date Value Ref Range Status 12/19/2021 2.5 0.0 - 4.4 Final NON-HDL CHOLESTEROL Date Value Ref Range Status 12/19/2021 134.9 (H) <130 mg/dL Final lisinopril-hydroCHLOROthiazide (PRINZIDE, ZESTORETIC) 20-25 MG Tablet 90 Tablet 0 Sig: Take 1 tablet by mouth once daily Nando Inhibitors and Diuretics Combo Protocol Passed - 04/29/2022 11:03 AM Passed - Serum potassium on record in past 12 months POTASSIUM Date Value Ref Range Status 12/19/2021 4.3 3.5 - 5.1 mmol/L Final Passed - Serum sodium on record in past 12 months SODIUM Date Value Ref Range Status 12/19/2021 140 136 - 144 mmol/L Final Passed - Blood pressure on record in past 12 months Clinician-entered: BP Readings from Last 3 Encounters: 04/25/22 106/54 12/27/21 126/74 12/24/21 114/62 Patient-entered: No data recorded Passed - Visit with relevant provider in past 12 months or upcoming 90 days Recent Visits Date Type Provider Dept 12/27/21 Office Visit Cate Patel MD [facility] [address] [facility] 06/28/21 Office Visit Cate Patel MD [facility] Showing recent visits within past 365 days and meeting all other requirements Future Appointments Date Type Provider Dept 06/27/22 Appointment Cate Patel MD [facility] [place] [facility] Showing future appointments within next 90 days and meeting all other requirements Passed - GFR on record in past 12 months GFR, EST. NONAFRICAN Date Value Ref Range Status 12/19/2021 42 (L) >=60 Final documented in this encounter Plan of Treatment Not on file documented as of this encounter Visit Diagnoses Diagnosis Acquired hypothyroidism Unspecified hypothyroidism Essential hypertension Unspecified essential hypertension Hyperlipidemia, unspecified hyperlipidemia type Obesity, Class III, BMI 40-49.9 (morbid obesity) (HCC) Morbid obesity documented in this encounter Additional Health Concerns Assessment Noted Time PHQ-9 Depression Total Score: 0 08/30/20 19 3:00 PM BIN PILER documented as of this encounter Care Teams Plater Apprentice Relationship Specialty Start Date End Date Cate Patel MD [address] [place] [address] PCP - General Family Medicine 12/11/20 03/05/23 Guerrero Nicholson MD [address] [facility] [address] [place] [address] PCP - General Neurology 07/30/23 Liliya Rai MD [address] [phone] Consulting Physician Endocrinology 10/24/20 Vadim Browning MD [address] [place] [address] Consulting Physician General Surgery 03/22/21 Sarah Borges MD [address] [place] [address] Consulting Physician Endocrinology 03/22/21 documented as of this encounter
--- OUTSIDE RECORDS SUMMARY | 2024-09-21 04:17 | XMS_ITS | Encounter Summary ---
Author Organization [facility] Address [address] [facility] [place] [address] Phone Care Team Providers Care Junior Brand Manager Name Role Phone Liliya Rai MD Unavailable Cate Patel MD Primary Care Provider [phone] Vadim Browning MD Unavailable Unavailable Sarah Borges MD Unavailable [phone] Reason for Visit * Reason Comments Follow-up * Auth/Cert Specialty Diagnoses / Procedures Referred By Contac t Referred To Contact Referral ID Status Reason Start Date Expiration Date Visits Re quested Visits Authorized [id number] 1 1 Encounter Details Date Type Department Care Team (Late st Contact Info) Description 06/27/2022 11:30 AM CDT [facility] Visit [facility] [address] [place] [id number] Pepe Anthony MD [address] [place] [address] Alee Ortiz Marcelle, PAC [address] [place] [address] Iron deficiency anemia, unspecified iron deficiency anemia type (Primary Dx); CKD (chronic kidney disease) stage 1, GFR 90 ml/min or greater Discharge Disposition: Discharged to home or Selfcare [...] Sign Reading Time Taken Comments Blood Pressure 126/72 06/27/2022 11:25 AM CDT Pulse 65 06/27/2022 11:25 AM CDT Temperature 36.4 ??C (97.6 ??F) 06/27/2022 11:25 AM C DT Respiratory Rate 18 06/27/2022 11:25 AM CDT Oxygen Saturation 98% 06/27/2022 11:25 AM CDT Inhaled Oxygen Concentration - - Weight 86.3 kg (190 lb 4.8 oz) 06/27/2022 11:25 AM CDT Height - - Body Mass Index 34.81 06/27/2022 10:02 AM CDT documented in this encounter Patient Instructions * Patient Instructions* Alee Ortiz Marcelle, PAC - 06/27/2022 11:30 AM CDT Images from the original note were not included. Iron rich diet Will advise of results of iron studies when obtained Will plan 1 year follow up unless labs are abnormal All patients are expected to check in with registration 30 minutes prior to all appointments. Please schedule follow-up in near future to discuss any concerns that were not addressed fully at today's office visit. To continue to provide excellent patient care, you may receive a survey regarding your visit today.To help us serve you better, please complete and return. These surveys are completely anonymous. If you have any concerns/ questions regarding today's visit, please call. If you experience any new or worsening symptoms, please call or go to the emergency department. Iron Deficiency Anemia, Adult Iron deficiency anemia is a condition in which the concentration of red blood cells or hemoglobin in the blood is below normal because of too little iron. Hemoglobin is a substance in red blood cellsthat carries oxygen to the body's tissues. When the concentration of red blood cells or hemoglobin is too low, not enough oxygen reaches these tissues. Iron deficiency anemia is usually long-lasting, and it develops over time. It may or may not cause symptoms. It is a common type of anemia. What are the causes? This condition may be caused by: ?? Not enough iron in the diet. ?? Abnormal absorption in the gut. ?? Increased need for iron because of or heavy menstrual periods, for females. ?? Cancers of the gastrointestinal system, such as colon cancer. ?? Blood loss caused by bleeding in the intestine. This may be from a gastrointestinal condition like Crohn's disease. ?? Frequent blood draws, such as from blood donation. What increases the risk? The following factors may make you more likely to develop this condition: ?? Being . ?? Being a teenage girl going through a growth spurt. What are the signs or symptoms? Symptoms of this condition may include: ?? Pale skin, lips, and nail beds. ?? Weakness, dizziness, and getting tired easily. ?? Headache. ?? Shortness of breath when moving or exercising. ?? Cold hands and feet. ?? Fast or irregular heartbeat. ?? Irritability or rapid breathing. These are more common in severe anemia. Mild anemia may not cause any symptoms. How is this diagnosed? This condition is diagnosed based on: ?? Your medical history. ?? A physical exam. ?? Blood tests. You may have additional tests to find the underlying cause of your anemia, such as: ?? Testing for blood in the stool (fecal occult blood test). ?? A procedure to see inside your colon and rectum (colonoscopy). ?? A procedure to see inside your esophagus and stomach (endoscopy). ?? A test in which cells are removed from bone marrow (bone marrow aspiration) or fluid is removed from the bone marrow to be examined. This is rarely needed. How is this treated? This condition is treated by correcting the cause of your iron deficiency. Treatment may involve: ?? Adding iron-rich foods to your diet. ?? Taking iron supplements. If you are or , you may need to take extra iron because your normal diet usually does not provide the amount of iron that you need. ?? Increasing vitamin C intake. Vitamin C helps your body absorb iron. Your health care provider may recommend that you take iron supplements along with a glass of orange juice or a vitamin C supplement. ?? Medicines to make heavy menstrual flow retail department reset. ?? Surgery. You may need repeat blood tests to determine whether treatment is working. If the treatment does not seem to be working, you may need more tests. Follow these instructions at home: Medicines ?? Take ckpy-xjz-rgfjqlu and prescription medicines only as told by your health care provider. Thisincludes iron supplements and vitamins. ? For the best iron absorption, you should take iron supplements when your stomach is empty. If youcannot tolerate them on an empty stomach, you may need to take them with food. ? Do not drink milk or take antacids at the same time as your iron supplements. Milk and antacids may interfere with iron absorption. ? Iron supplements may turn stool (feces) a darker color and it may appear black. ?? If you cannot tolerate taking iron supplements by mouth, talk with your health care provider about taking them through an IV or through an injection into a muscle. Eating and drinking ?? Talk with your health care provider before changing your diet. He or she may recommend that you eat foods that contain a lot of iron, such as: ? Liver. ? Low-fat (lean) beef. ? Breads and cereals that have iron added to them (are fortified). ? Eggs. ? Dried fruit. ? Dark green, leafy vegetables. ?? To help your body use the iron from iron-rich foods, eat those foods at the same time as fresh fruits and vegetables that are high in vitamin C. Foods that are high in vitamin C include: ? Oranges. ? Peppers. ? Tomatoes. ? Mangoes. ?? Drink enough fluid to keep your urine pale yellow. Managing constipation If you are taking an iron supplement, it may cause constipation. To prevent or treat constipation, you may need to: ?? Take xuih-hch-xerufph or prescription medicines. ?? Eat foods that are high in fiber, such as beans, whole grains, and fresh fruits and vegetables. ?? Limit foods that are high in fat and processed sugars, such as fried or sweet foods. General instructions ?? Return to your normal activities as told by your health care provider. Ask your health care provider what activities are safe for you. ?? Practice good hygiene. Anemia can make you more prone to illness and infection. ?? Keep all follow-up visits as told by your health care provider. This is important. Contact a health care provider if you: ?? Feel nauseous or you vomit. ?? Feel weak. ?? Have unexplained sweating. ?? Develop symptoms of constipation, such as: ? Having fewer than three bowel movements a week. ? Straining to have a bowel movement. ? Having stools that are hard, dry, or larger than normal. ? Feeling full or bloated. ? Pain in the lower abdomen. ? Not feeling relief after having a bowel movement. Get help right away if you: ?? Faint. If this happens, do not drive yourself to the hospital. ?? Have chest pain. ?? Have shortness of breath that: ? Is severe. ? Gets worse with physical activity. ?? Have an irregular or rapid heartbeat. ?? Become light-headed when getting up from a sitting or lying down position. These symptoms may represent a serious problem that is an emergency. Do not wait to see if the symptoms will go away. Get medical help right away. Call your local emergency services (911 in the [place] Do not drive yourself to the hospital. Summary ?? Iron deficiency anemia is a condition in which the concentration of red blood cells or hemoglobin in the blood is below normal because of too little iron. ?? This condition is treated by correcting the cause of your iron deficiency. ?? Take smpl-ixr-mbbianq and prescription medicines only as told by your health care provider. Thisincludes iron supplements and vitamins. ?? To help your body use the iron from iron-rich foods, eat those foods at the same time as fresh fruits and vegetables that are high in vitamin C. ?? Get help right away if you have shortness of breath that gets worse with physical activity. This information is not intended to replace advice given to you by your health care provider. Make sure you discuss any questions you have with your health care provider. Document Revised: 05/30/2020 Document Reviewed: 05/30/2020 [employer] Patient Education ?? 2021 [employer]. Iron-Rich Diet Iron is a mineral that helps your body produce hemoglobin. Hemoglobin is a protein in red blood cells that carries oxygen to your body's tissues. Eating too little iron may cause you to feel weak andtired, and it can increase your risk of infection. Iron is naturally found in many foods, and many foods have iron added to them (are iron-fortified). You may need to follow an iron-rich diet if you do not have enough iron in your body due to certainmedical conditions. The amount of iron that you need each day depends on your age, your sex, and any medical conditions you have. Follow instructions from your health care provider or a dietitian about how much iron you should eat each day. What are tips for following this plan? Reading food labels ?? Check food labels to see how many milligrams (mg) of iron are in each serving. Cooking ?? Cook foods in pots and pans that are made from iron. ?? Take these steps to make it easier for your body to absorb iron from certain foods: ? Soak beans overnight before cooking. ? Soak whole grains overnight and drain them before using. ? Ferment flours before baking, such as by using yeast in bread dough. Meal planning ?? When you eat foods that contain iron, you should eat them with foods that are high in vitamin C.These include oranges, peppers, tomatoes, potatoes, and mangoes. Vitamin C helps your body absorb iron. ?? Certain foods and drinks prevent your body from absorbing iron properly. Avoid eating these foods in the same meal as iron-rich foods or with iron supplements. These foods include: ? Coffee, black tea, and red wine. ? Milk, dairy products, and foods that are high in calcium. ? Beans and soybeans. ? Whole grains. General information ?? Take iron supplements only as told by your health care provider. An overdose of iron can be life-threatening. If you were prescribed iron supplements, take them with orange juice or a vitamin C supplement. ?? When you eat iron-fortified foods or take an iron supplement, you should also eat foods that naturally contain iron, such as meat, poultry, and fish. Eating naturally iron-rich foods helps your body absorb the iron that is added to other foods or contained in a supplement. ?? Iron from animal sources is better absorbed than iron from plant sources. What foods should I eat? Fruits Prunes. Raisins. Eat fruits high in vitamin C, such as oranges, grapefruits, and strawberries, with iron-rich foods. Vegetables Spinach (cooked). Green peas. Broccoli. Fermented vegetables. Eat vegetables high in vitamin C, such as leafy greens, potatoes, leon peppers, and tomatoes, with iron-rich foods. Grains Iron-fortified breakfast cereal. Iron-fortified whole-wheat bread. Enriched rice. Sprouted grains. Meats and other proteins Beef liver. Beef. [place]. Chicken. Oysters. Shrimp. Tuna. Sardines. Chickpeas. Nuts. Tofu. Pumpkin seeds. Beverages Tomato juice. Fresh orange juice. Prune juice. Hibiscus tea. Iron-fortified instant breakfast shakes. Sweets and desserts Blackstrap molasses. Seasonings and condiments Tahini. Fermented soy sauce. Other foods Wheat germ. The items listed above may not be a complete list of recommended foods and beverages. Contact a dietitian for more information. What foods should I limit? These are foods that should be limited while eating iron-rich foods as they can reduce the absorption of iron in your body. Grains Whole grains. Bran cereal. Bran flour. Meats and other proteins Soybeans. Products made from soy protein. Black beans. Lentils. Mung beans. Split peas. Dairy Milk. Cream. Cheese. Yogurt. Cottage cheese. Beverages Coffee. Black tea. Red wine. Sweets and desserts [place]. Chocolate. Ice cream. Seasonings and condiments Basil. Oregano. Large amounts of parsley. The items listed above may not be a complete list of foods and beverages you should limit. Contact a dietitian for more information. Summary ?? Iron is a mineral that helps your body produce hemoglobin. Hemoglobin is a protein in red blood cells that carries oxygen to your body's tissues. ?? Iron is naturally found in many foods, and many foods have iron added to them (are iron-fortified). ?? When you eat foods that contain iron, you should eat them with foods that are high in vitamin C.Vitamin C helps your body absorb iron. ?? Certain foods and drinks prevent your body from absorbing iron properly, such as whole grains and dairy products. You should avoid eating these foods in the same meal as iron-rich foods or with iron supplements. This information is not intended to replace advice given to you by your health care provider. Make sure you discuss any questions you have with your health care provider. Document Revised: 09/03/2021 Document Reviewed: 09/03/2021 [employer] Patient Education ?? 2021 [employer] documented in this encounter Progress Notes * Alee Ortiz PAC - 06/27/2022 11:30 AM CDT Images from the original note were not included. PROBLEM LIST: Patient Active Problem List Diagnosis ??? HTN (hypertension) ??? Depression ??? MARY on CPAP ??? Iron deficiency anemia due to chronic blood loss ??? Hypothyroidism ??? Gastroesophageal reflux disease ??? Thyroid nodule ??? 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 Hyperlipidemia ??? Spinal stenosis of lumbar region ??? Primary osteoarthritis involving multiple joints ??? Hiatal hernia ??? Chronic fatigue ??? Migraine without aura and without status migrainosus, not intractable ??? Anxiety disorder ??? CKD (chronic kidney disease) stage 1, GFR 90 ml/min or greater ??? Pituitary macroadenoma (HCC) ??? IFG (impaired fasting glucose) ??? Chronic left-sided headaches ??? Benign paroxysmal positional vertigo ??? Memory loss Silvia Boss is a . 77 y.o. female who presents with No chief complaint on file. . DIAGNOSIS, TREATMENT PLAN AND FOLLOW UP: Diagnoses and all orders for this visit: Iron deficiency anemia, unspecified iron deficiency anemia type - FERRITIN; Future - FOLIC ACID (FOLATE); Future - IRON W/IRON BINDING CAPACITY; Future - TRANSFERRIN; Future - CMP (COMPREHENSIVE METABOLIC PANEL); Future - COMPLETE BLOOD COUNT (CBC) WITH DIFF; Future - VITAMIN B12; Future CKD (chronic kidney disease) stage 1, GFR 90 ml/min or greater Return in about 1 year (around 06/27/2023) for Review labs and tests one week after completed. S: Presents for 6 follow-up for iron deficiency anemia plans CKD/hiatal hernia/review labs. Doing well and offers no complaints at this time. Last iron infusion was 08/17/2020. Denies weight loss/malaise/fatigue. Denies chest pain/ pressure/ heaviness/ tightness. Denies cough/ sob/ wheezing. Normalappetite. Denies heartburn/ reflux/ nausea/ vomiting/ abdominal pain/ constipation/ diarrhea. Denies black or tarry stools. Denies lightheadedness/dizziness/vertigo or fainting. ALLERGIES: No Known Allergies MEDICATIONS: Current Outpatient Medications Medication Sig Dispense Refill ??? Aspirin 81 [...] mouth once daily 90 Capsule 0 ??? levothyroxine (SYNTHROID) 75 MCG Tablet Take 1 tablet by mouth once daily 90 Tablet 0 ??? lisinopril-hydroCHLOROthiazide (PRINZIDE, ZESTORETIC) 20-25 MG Tablet Take 1 tablet by mouth once daily 90 Tablet 0 ??? Loperamide HCl (IMODIUM) 2 MG Tablet [...] 0 ??? simvastatin (ZOCOR) 5 MG Tablet TAKE 1 TABLET BY MOUTH ONCE DAILY IN THE EVENING 90 Tablet 0 ??? Topiramate 50 MG Tablet Take 1 tablet by mouth twice daily 180 Tablet 0 ??? Zinc Sulfate (ZINCATE PO) Take 1 Tab by mouth daily. No current facility-administered medications for this visit. PMS/H: Past Medical History Positives Diagnosis Date ??? Autoimmune disease (HCC) DONNA ??? Bursitis Lt shoulder ??? Colon polyp ??? Depression ??? Diverticula of colon ??? DM (diabetes mellitus) (HCC) diet controlled ??? Dyslipidemia ??? Esophageal dysmotility ??? Fe deficiency anemia ??? GERD (gastroesophageal reflux disease) ??? Donna's disease ??? Hypertension ??? Kidney stone 09/2016 Right ??? Low bone mass ??? Migraine ??? Neuropathy, peripheral ??? OA (osteoarthritis) ??? 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 MARY (obstructive sleep apnea) cpap ??? Pancreatitis 2012 ??? Pituitary tumor ??? Spinal stenosis ??? Status post epidural steroid injection right shoulder and right hip ??? Thyroid cancer (HCC) Radiation tablets ??? Vitamin D deficiency Past Surgical History: Procedure Laterality Date ??? CHOLECYSTECTOMY, LAPAROSCOPIC ??? HYSTERECTOMY, TOTAL ABDOMINAL ??? APPENDECTOMY ??? BLADDER SURGERY ??? BUNIONECTOMY Bilateral ??? CARPAL TUNNEL RELEASE Bilateral ??? CATARACT REMOVAL Bilateral 2015 ??? COLONOSCOPY 12/04/2013 ??? HAMMER TOE SURGERY Right ??? HIP ARTHROPLASTY Left THR ??? HUMERUS SURGERY Right ORIF ??? LAMINECTOMY Lumbar spine ??? LITHOTRIPSY Right 10/01/2016 Procedure: Extracorporeal Shock Wave Lithotripsy RIGHT-; Surgeon: Neeta Edwards MD; Location:[facility]; Service: ??? OVARY REMOVAL ??? LAKHWINDER AND BSO Fibroids ??? TOTAL KNEE ARTHROPLASTY Bilateral ??? UPPER GASTROINTESTINAL ENDOSCOPY N/A 10/27/2015 Procedure: EGDcol plus dilatation with 54fr. zabala; Surgeon: Talha Catherine DO; Location: [facility]; Service: ??? UPPER GASTROINTESTINAL ENDOSCOPY N/A 06/26/2018 Procedure: EGD: yee test, mild esophageal dysmotility, hiatal hernia, dilation 54 fr zabala; Surgeon: Talha Catherine DO; Location: [facility]; Service: Gastroenterology ??? UPPER GASTROINTESTINAL ENDOSCOPY N/A 07/04/2021 Procedure: EGD-hiatal hernia-esophageal stricture-46F Zabala dilation-gastric body and antral biopsy; Surgeon: Teofilo Mccrray MD; Location: [facility]; Service: Gastroenterology SOCIAL: Social History Socioeconomic History ??? Marital status: Spouse name: Not on file ??? Number of children: 2 ??? Years of education: Not on file ??? Highest education level: Not on file Occupational History ??? Not on file Tobacco Use ??? Smoking status: Never Smoker ??? Smokeless tobacco: Never Used Vaping Use ??? Vaping Use: Never used Substance and Sexual Activity ??? Alcohol use: No Alcohol/week: 0.0 oz ??? Drug use: No ??? Sexual activity: Not Currently Other Topics Concern ??? Not on file Social History Narrative ??? Not on file FAMILY HX: Family History Problem Relation Age of Onset ??? Heart Attack Mother ??? Diabetes Mother ??? Hypertension Mother ??? Stroke Mother ??? Arthritis Mother ??? Hypertension Father ??? Emphysema Father ??? Arthritis Father ??? Diabetes Brother x 2 ??? Hypertension Brother ??? Heart Disease Brother x 2 ??? Hypertension Brother ??? Hypertension Sister ??? Hypertension Sister ??? Hypertension Sister ??? Hypertension Sister VITAL SIGNS: Vitals: 06/27/22 1125 BP: 126/72 BP Location: Left Arm BP Position: Sitting Pulse: 65 Resp: 18 Temp: 97.6 ??F (36.4 ??C) TempSrc: Temporal SpO2: 98% Weight: 190 lb 4.8 oz (86.3 kg) GENERAL EXAM: GENERAL:Well developed, well nourished, in no acute distress. AAO x3. Cooperative. HEENT:Normocephalic. PERRLA. Nonicteric. NECK:Supple/ non tender/ full ROM. LYMPH NODES:No adenopathy. CARDIOVASCULAR:RRR/ S1S2/ No m/g/c/r. PULMONARY: Respirations easy and regular. Breath sounds clear bilaterally. No rhonchi/ rales/ wheezes. GI: Abdomen soft, nondistended. No tenderness, rebound, guarding or mass. No hepatosplenomegaly. Bowel sounds normoactive. MUSCULOSKELETAL:Full ROM all extremities. No tenderness/ swelling/ crepitus. SKIN: General-warm, pink and dry. No rashes/ lesions. PSYCHIATRIC:Euthymic. Affect congruent with mood. Normal thought processes. TEST RESULTS: Results for orders placed or performed in visit on 06/24/22 CMP (COMPREHENSIVE METABOLIC PANEL) Result Value Ref Range SODIUM 134 (L) 136 - 144 mmol/L POTASSIUM 3.9 3.5 - 5.1 mmol/L CHLORIDE 100 100 - 110 mmol/L CO2, VENOUS 22 22 - 32 mmol/L ANION GAP 15.9 8.0 - 20.0 mmol/L GLUCOSE 104 (H) 70 - 99 mg/dL BUN 33 (H) 8 - 23 mg/dL CREATININE, BLOOD 1.31 (H) 0.60 - 1.10 mg/dL BUN/CREATININE RATIO 25 (H) 12 - 20 ratio TOTAL PROTEIN 7.3 6.0 - 8.3 g/dL ALBUMIN 4.7 3.5 - 5.2 g/dL A/G RATIO 1.8 1.0 - 2.0 CALCIUM 9.8 8.9 - 10.3 mg/dL T BILI 0.3 <=1.2 mg/dL SGOT (AST) 10 <=32 U/L SGPT (ALT) 6 <=41 U/L ALKALINE PHOSPHATASE 57 35 - 105 U/L IS THE PATIENT REQUIRED TO BE FASTING? No GFR, ESTIMATED 42 (L) >=60 GFR, EST. 48 (L) >=60 GFR, EST. NONAFRICAN 40 (L) >=60 LIPID PANEL Result Value Ref Range CHOLESTEROL 221 (H) <=200 mg/dL TRIGLYCERIDES 67 <150 mg/dL HDL CHOLESTEROL 94.3 >40 mg/dL LDL 113 5 - 130 mg/dL VLDL 13 5 - 55 mg/dL CHOL/HDL RATIO 2.3 0.0 - 4.4 NON-HDL CHOLESTEROL 126.7 <130 mg/dL IS THE PATIENT REQUIRED TO BE FASTING? Yes HAS THE PATIENT BEEN FASTING? Yes HEMOGLOBIN A1C W/ ESTIMATED GLUCOSE Result Value Ref Range HGB-A1C 5.6 4.0 - 6.0 % Est Average Glucose 114.0 mg/dL THYROXINE (T4) FREE Result Value Ref Range T4 FREE 1.3 0.9 - 1.7 ng/dL THYROID STIMULATING HORMONE (TSH) Result Value Ref Range TSH 1.600 0.270 - 4.200 mIU/L IRON W/IRON BINDING CAPACITY Result Value Ref Range IRON 51.94 37 - 145 mcg/dL % SATURATION * 18 (L) 20 - 55 % UIBC 233 112 - 346 mcg/dL TIBC CALC 285 149 - 491 mcg/dL CBC WITH AUTO DIFFERENTIAL Result Value Ref Range WBC 5.60 4.00 - 12.00 10(3)/mcL RBC 3.81 3.80 - 5.30 10(6)/mcL HEMOGLOBIN (HGB) 11.3 (L) 12.0 - 15.8 g/dL HEMATOCRIT (HCT) 34.6 (L) 36.0 - 47.0 % MCV 90.8 82.0 - 96.0 fL MCH 29.7 26.0 - 34.0 pg MCHC 32.7 31.0 - 36.0 g/dL PLATELET COUNT 309 140 - 440 10(3)/mcL RDW 13.8 11.8 - 15.5 % MPV 9.8 9.7 - 12.4 fL NEUTROPHILS 74.3 (H) 47.0 - 73.0 % LYMPHOCYTES 15.0 (L) 18.0 - 42.0 % MONOCYTES 7.7 4.0 - 12.0 % EOSINOPHILS 2.1 0.0 - 5.0 % BASOPHILS 0.9 0.0 - 1.0 % ABSOLUTE NEUTROPHILS 4.16 1.60 - 7.70 10(3)/mcL ABSOLUTE LYMPHOCYTES 0.84 (L) 1.30 - 3.20 10(3)/mcL ABSOLUTE MONOCYTES 0.43 0.20 - 1.00 10(3)/mcL ABSOLUTE EOSINOPHIL 0.12 0.00 - 0.40 10(3)/mcL ABSOLUTE BASOPHILS 0.05 0.00 - 0.10 10(3)/mcL NRBC PER 100 WBC 0 RESULTS REVIEWED AND DISCUSSED- EXPRESSES UNDERSTANDING. Medications/ treatment plan reviewed. Risks and benefits discussed. Expressed understanding. Patient Instructions Iron rich diet Will advise of results of iron studies when obtained Will plan 1 year follow up unless labs are abnormal All patients are expected to check in with registration 30 minutes prior to all appointments. Please schedule follow-up in near future to discuss any concerns that were not addressed fully at today's office visit. To continue to provide excellent patient care, you may receive a survey regarding your visit today.To help us serve you better, please complete and return. These surveys are completely anonymous. If you have any concerns/ questions regarding today's visit, please call. If you experience any new or worsening symptoms, please call or go to the emergency department. Iron Deficiency Anemia, Adult Iron deficiency anemia is a condition in which the concentration of red blood cells or hemoglobin in the blood is below normal because of too little iron. Hemoglobin is a substance in red blood cellsthat carries oxygen to the body's tissues. When the concentration of red blood cells or hemoglobin is too low, not enough oxygen reaches these tissues. Iron deficiency anemia is usually long-lasting, and it develops over time. It may or may not cause symptoms. It is a common type of anemia. What are the causes? This condition may be caused by: ?? Not enough iron in the diet. ?? Abnormal absorption in the gut. ?? Increased need for iron because of or heavy menstrual periods, for females. ?? Cancers of the gastrointestinal system, such as colon cancer. ?? Blood loss caused by bleeding in the intestine. This may be from a gastrointestinal condition like Crohn's disease. ?? Frequent blood draws, such as from blood donation. What increases the risk? The following factors may make you more likely to develop this condition: ?? Being . ?? Being a teenage girl going through a growth spurt. What are the signs or symptoms? Symptoms of this condition may include: ?? Pale skin, lips, and nail beds. ?? Weakness, dizziness, and getting tired easily. ?? Headache. ?? Shortness of breath when moving or exercising. ?? Cold hands and feet. ?? Fast or irregular heartbeat. ?? Irritability or rapid breathing. These are more common in severe anemia. Mild anemia may not cause any symptoms. How is this diagnosed? This condition is diagnosed based on: ?? Your medical history. ?? A physical exam. ?? Blood tests. You may have additional tests to find the underlying cause of your anemia, such as: ?? Testing for blood in the stool (fecal occult blood test). ?? A procedure to see inside your colon and rectum (colonoscopy). ?? A procedure to see inside your esophagus and stomach (endoscopy). ?? A test in which cells are removed from bone marrow (bone marrow aspiration) or fluid is removed from the bone marrow to be examined. This is rarely needed. How is this treated? This condition is treated by correcting the cause of your iron deficiency. Treatment may involve: ?? Adding iron-rich foods to your diet. ?? Taking iron supplements. If you are or , you may need to take extra iron because your normal diet usually does not provide the amount of iron that you need. ?? Increasing vitamin C intake. Vitamin C helps your body absorb iron. Your health care provider may recommend that you take iron supplements along with a glass of orange juice or a vitamin C supplement. ?? Medicines to make heavy menstrual flow retail department reset. ?? Surgery. You may need repeat blood tests to determine whether treatment is working. If the treatment does not seem to be working, you may need more tests. Follow these instructions at home: Medicines ?? Take rfad-zfo-lwonpww and prescription medicines only as told by your health care provider. Thisincludes iron supplements and vitamins. ? For the best iron absorption, you should take iron supplements when your stomach is empty. If youcannot tolerate them on an empty stomach, you may need to take them with food. ? Do not drink milk or take antacids at the same time as your iron supplements. Milk and antacids may interfere with iron absorption. ? Iron supplements may turn stool (feces) a darker color and it may appear black. ?? If you cannot tolerate taking iron supplements by mouth, talk with your health care provider about taking them through an IV or through an injection into a muscle. Eating and drinking ?? Talk with your health care provider before changing your diet. He or she may recommend that you eat foods that contain a lot of iron, such as: ? Liver. ? Low-fat (lean) beef. ? Breads and cereals that have iron added to them (are fortified). ? Eggs. ? Dried fruit. ? Dark green, leafy vegetables. ?? To help your body use the iron from iron-rich foods, eat those foods at the same time as fresh fruits and vegetables that are high in vitamin C. Foods that are high in vitamin C include: ? Oranges. ? Peppers. ? Tomatoes. ? Mangoes. ?? Drink enough fluid to keep your urine pale yellow. Managing constipation If you are taking an iron supplement, it may cause constipation. To prevent or treat constipation, you may need to: ?? Take xkox-cwi-swuqxdy or prescription medicines. ?? Eat foods that are high in fiber, such as beans, whole grains, and fresh fruits and vegetables. ?? Limit foods that are high in fat and processed sugars, such as fried or sweet foods. General instructions ?? Return to your normal activities as told by your health care provider. Ask your health care provider what activities are safe for you. ?? Practice good hygiene. Anemia can make you more prone to illness and infection. ?? Keep all follow-up visits as told by your health care provider. This is important. Contact a health care provider if you: ?? Feel nauseous or you vomit. ?? Feel weak. ?? Have unexplained sweating. ?? Develop symptoms of constipation, such as: ? Having fewer than three bowel movements a week. ? Straining to have a bowel movement. ? Having stools that are hard, dry, or larger than normal. ? Feeling full or bloated. ? Pain in the lower abdomen. ? Not feeling relief after having a bowel movement. Get help right away if you: ?? Faint. If this happens, do not drive yourself to the hospital. ?? Have chest pain. ?? Have shortness of breath that: ? Is severe. ? Gets worse with physical activity. ?? Have an irregular or rapid heartbeat. ?? Become light-headed when getting up from a sitting or lying down position. These symptoms may represent a serious problem that is an emergency. Do not wait to see if the symptoms will go away. Get medical help right away. Call your local emergency services (911 in the [place] Do not drive yourself to the hospital. Summary ?? Iron deficiency anemia is a condition in which the concentration of red blood cells or hemoglobin in the blood is below normal because of too little iron. ?? This condition is treated by correcting the cause of your iron deficiency. ?? Take ufgl-wju-drpbzqb and prescription medicines only as told by your health care provider. Thisincludes iron supplements and vitamins. ?? To help your body use the iron from iron-rich foods, eat those foods at the same time as fresh fruits and vegetables that are high in vitamin C. ?? Get help right away if you have shortness of breath that gets worse with physical activity. This information is not intended to replace advice given to you by your health care provider. Make sure you discuss any questions you have with your health care provider. Document Revised: 05/30/2020 Document Reviewed: 05/30/2020 [employer] Patient Education ?? 2021 [employer] Iron-Rich Diet Iron is a mineral that helps your body produce hemoglobin. Hemoglobin is a protein in red blood cells that carries oxygen to your body's tissues. Eating too little iron may cause you to feel weak andtired, and it can increase your risk of infection. Iron is naturally found in many foods, and many foods have iron added to them (are iron-fortified). You may need to follow an iron-rich diet if you do not have enough iron in your body due to certainmedical conditions. The amount of iron that you need each day depends on your age, your sex, and any medical conditions you have. Follow instructions from your health care provider or a dietitian about how much iron you should eat each day. What are tips for following this plan? Reading food labels ?? Check food labels to see how many milligrams (mg) of iron are in each serving. Cooking ?? Cook foods in pots and pans that are made from iron. ?? Take these steps to make it easier for your body to absorb iron from certain foods: ? Soak beans overnight before cooking. ? Soak whole grains overnight and drain them before using. ? Ferment flours before baking, such as by using yeast in bread dough. Meal planning ?? When you eat foods that contain iron, you should eat them with foods that are high in vitamin C.These include oranges, peppers, tomatoes, potatoes, and mangoes. Vitamin C helps your body absorb iron. ?? Certain foods and drinks prevent your body from absorbing iron properly. Avoid eating these foods in the same meal as iron-rich foods or with iron supplements. These foods include: ? Coffee, black tea, and red wine. ? Milk, dairy products, and foods that are high in calcium. ? Beans and soybeans. ? Whole grains. General information ?? Take iron supplements only as told by your health care provider. An overdose of iron can be life-threatening. If you were prescribed iron supplements, take them with orange juice or a vitamin C supplement. ?? When you eat iron-fortified foods or take an iron supplement, you should also eat foods that naturally contain iron, such as meat, poultry, and fish. Eating naturally iron-rich foods helps your body absorb the iron that is added to other foods or contained in a supplement. ?? Iron from animal sources is better absorbed than iron from plant sources. What foods should I eat? Fruits Prunes. Raisins. Eat fruits high in vitamin C, such as oranges, grapefruits, and strawberries, with iron-rich foods. Vegetables Spinach (cooked). Green peas. Broccoli. Fermented vegetables. Eat vegetables high in vitamin C, such as leafy greens, potatoes, leon peppers, and tomatoes, with iron-rich foods. Grains Iron-fortified breakfast cereal. Iron-fortified whole-wheat bread. Enriched rice. Sprouted grains. Meats and other proteins Beef liver. Beef. [place]. Chicken. Oysters. Shrimp. Tuna. Sardines. Chickpeas. Nuts. Tofu. Pumpkin seeds. Beverages Tomato juice. Fresh orange juice. Prune juice. Hibiscus tea. Iron-fortified instant breakfast shakes. Sweets and desserts Blackstrap molasses. Seasonings and condiments Tahini. Fermented soy sauce. Other foods Wheat germ. The items listed above may not be a complete list of recommended foods and beverages. Contact a dietitian for more information. What foods should I limit? These are foods that should be limited while eating iron-rich foods as they can reduce the absorption of iron in your body. Grains Whole grains. Bran cereal. Bran flour. Meats and other proteins Soybeans. Products made from soy protein. Black beans. Lentils. Mung beans. Split peas. Dairy Milk. Cream. Cheese. Yogurt. Cottage cheese. Beverages Coffee. Black tea. Red wine. Sweets and desserts [place]. Chocolate. Ice cream. Seasonings and condiments Basil. Oregano. Large amounts of parsley. The items listed above may not be a complete list of foods and beverages you should limit. Contact a dietitian for more information. Summary ?? Iron is a mineral that helps your body produce hemoglobin. Hemoglobin is a protein in red blood cells that carries oxygen to your body's tissues. ?? Iron is naturally found in many foods, and many foods have iron added to them (are iron-fortified). ?? When you eat foods that contain iron, you should eat them with foods that are high in vitamin C.Vitamin C helps your body absorb iron. ?? Certain foods and drinks prevent your body from absorbing iron properly, such as whole grains and dairy products. You should avoid eating these foods in the same meal as iron-rich foods or with iron supplements. This information is not intended to replace advice given to you by your health care provider. Make sure you discuss any questions you have with your health care provider. Document Revised: 09/03/2021 Document Reviewed: 09/03/2021 [employer] Patient Education ?? 2021 [employer] documented in this encounter Miscellaneous Notes * Interdisciplinary - Tere Rosado RN - 06/27/2022 11:30 AM CDT Pt ambulated back to exam room. Vitals and weight obtained. No change in healthy history or medications. Pt awaiting to see JAMEY Vickers. documented in this encounter Plan of Treatment Not on file documented as of this encounter Results * VITAMIN B12 (07/30/2023 1:04 PM CDT) VITAMIN B12 626 213 - 816 pg/mL 07/30/2023 2:23 PM CDT [facility] Blood Venipuncture / Unknown 07/30/2023 1:04 PM CDT 07/30/2023 1:20 PM CDT Alee Ortiz PAC CHEMISTRY ORDERABLES Alysia l Result [facility] [address] [place] [address] * (ABNORMAL) CMP (COMPREHENSIVE METABOLIC PANEL) (07/30/2023 1:04 PM CDT) SODIUM 137 136 - 145 mmol/L 07/30/2023 1:47 PM CDT [facility] POTASSIUM 3.7 3.5 - 5.1 mmol/L 07/30/2023 1:47 PM CDT [facility] CHLORIDE 105 98 - 107 mmol/L 07/30/2023 1:47 PM CDT [facility] CO2, VENOUS 21(L) 22 - 30 mmol/L 07/30/2023 1:47 PM CDT [facility] ANION GAP 14.7 <18.0 mmol/L 07/30/2023 1:47 PM CDT [facility] GLUCOSE 108(H) 70 - 99 mg/dL 07/30/2023 1:47 PM CDT [facility] BUN 37(H) 10 - 20 mg/dL 07/30/2023 1:47 PM CDT [facility] CREATININE, BLOOD 1.53(H) 0.60 - 1.00 mg/dL 07/30/2023 1:[address] [facility] BUN/CREATININE RATIO 24(H) 12 - 20 ratio 07/30/2023 1:[address] [facility] TOTAL PROTEIN 7.1 6.3 - 8.2 g/dL 07/30/2023 1:[address] [facility] ALBUMIN 4.3 3.5 - 5.0 g/dL 07/30/2023 1:[address] [facility] A/G RATIO 1.5 1.0 - 2.2 07/30/2023 1:[address] [facility] CALCIUM 9.5 8.7 - 10.5 mg/dL 07/30/2023 1:[address] [facility] T BILI 0.5 0.2 - 1.2 mg/dL 07/30/2023 1:[address] [facility] SGOT (AST) 16 5 - 34 U/L 07/30/2023 1:[address] [facility] SGPT (ALT) 9 0 - 55 U/L 07/30/2023 1:[address] [facility] ALKALINE PHOSPHATASE 47 40 - 150 U/L 07/30/2023 1:[address] [facility] IS THE PATIENT REQUIRED TO BE FASTING? No 07/30/2023 1:47 PM CDT [facility] GFR, ESTIMATED 35(L) >=60 07/30/2023 1:47 PM CDT [facility] Comment: Creatinine Clearance is the preferred criteria for selecting drug dose adjustments in renally impaired patients. ??The GFR is provided as additional pertinent clinical information. GFR is reported in mL/min/1.73 sq m. Calculation based on the Chronic Kidney Disease Epidemiology Collaboration (CKD- EPI) equation refit without adjustment for race. GFR, EST. 40(L) >=60 023 1:47 PM CDT [facility] GFR, EST. NONAFRICAN 33(L) >=60 07/30/2023 1:47 PM CDT [facility] Blood Venipuncture / Unknown 07/30/2023 1:04 PM CDT 07/30/2023 1:20 PM CDT [facility] PAC CHEMISTRY ORDERABLES Alysia l Result Performing Organization Address City/[facility]/ZIP Co de Phone Number [facility] [address] [place] [address] * (ABNORMAL) FOLIC ACID (FOLATE) (07/30/2023 1:04 PM CDT) Pathologist [facility] FOLATE 4.2(L) 7.0 - 31.4 ng/mL 07/30/2023 2:23 PM CDT [facility] IS THE PATIENT REQUIRED TO BE FASTING? No 07/30/2023 2:23 PM CDT [facility] Blood Venipuncture / Unknown 07/30/2023 1:04 PM CDT 07/30/2023 1:20 PM CDT [facility] PAC CHEMISTRY ORDERABLES Alysia l Result [facility] [address] [place] [address] * FERRITIN (07/30/2023 1:04 PM CDT) FERRITIN 121 5 - 204 ng/mL 07/30/2023 2:09 PM CDT [facility] Blood Venipuncture / Unknown 07/30/2023 1:04 PM CDT 07/30/2023 1:20 PM CDT us Alee Ortiz PAC CHEMISTRY ORDERABLES Alysia l Result [facility] [address] [place] [address] documented in this encounter Visit Diagnoses Diagnosis Iron deficiency anemia, unspecified iron deficiency anemia type- Primary CKD (chronic kidney disease) stage 1, GFR 90 ml/min or greater Chronic kidney disease, Stage I documented in this encounter Additional Health Concerns Assessment Noted Time PHQ-9 Depression Total Score: 0 08/30/20 19 3: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
--- OUTSIDE RECORDS SUMMARY | 2024-09-21 04:17 | XMS_ITS | Encounter Summary ---
Author Organization [employer] 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
--- OUTSIDE RECORDS SUMMARY | 2024-09-21 04:17 | XMS_ITS | Encounter Summary ---
Author Organization [facility] Address [address] [place] [address] Phone Care Team Providers Care Funds Development Director Name Role Phone Liliya Rai MD Unavailable Cate Patel MD Primary Care Provider [phone] Vadim Browning MD Unavailable Unavailable Sarah Borges MD Unavailable [phone]- [phone] Guerrero Nicholson MD Primary Care Provider Reason for Visit * Reason Comments Medication Refill Encounter Details Date Type Department Care Team (Late st Contact Info) Description 01/27/2022 Refill [facility] - Primary Care - Sar[place] [address] [place] [address] Cate Patel MD [address] [place] [address] Medication Refill Social History Tobacco [...] Telephone Encounter - Rosalba Black RN - 01/28/2022 10:49 AM CDT Medication failed the protocol, provider to review and approve the medication order if appropriate. Requested Prescriptions Pending Prescriptions Disp Refills Topiramate 50 MG Tablet [Pharmacy Med Name: Topiramate 50 MG Oral Tablet] 180 Tablet 0 Sig: Take 1 tablet by mouth twice daily Not Delegated - Anticonvulsants Excluding Benzodiazepines Protocol Failed - 01/27/2022 4:32 PM Failed - This refill cannot be delegated Passed - Visit with relevant provider in past 12 months or upcoming 90 days Recent Visits Date Type Provider Dept 12/27/21 Office Visit [facility] [address] 06/28/21 Office Visit Cate Pat[facility] [address] 03/01/21 Office Visit Cate Patel MD [facility] [employer] Showing recent visits within past 365 days and meeting all other requirements Future Appointments No visits were found meeting these conditions. Showing future appointments within next 90 days and meeting all other requirements Signed Prescriptions Disp Refills simvastatin (ZOCOR) 5 MG Tablet 90 Tablet 0 Sig: TAKE 1 TABLET BY MOUTH ONCE DAILY IN THE EVENING Hmg CoA Reductase Inhibitors Protocol Passed - 01/27/2022 4:32 PM Passed - Visit with relevant provider in past 12 months or upcoming 90 days Recent Visits Date Type Provider Dept 12/27/21 Office Visit Cate Patel MD [facility] [address] 06/28/21 Office Visit Cate Patel MD [facility] [address] 03/01/21 Office Visit Cate Patel MD [facility] [place] [employer] [facility] Showing recent visits within past 365 [...] Status 12/19/2021 134.9 (H) <130 mg/dL Final dilTIAZem (CARDIZEM CD) 240 MG CAPSULE SR 24 HR 90 Capsule 0 Sig: Take 1 capsule by mouth once daily Calcium-Channel Blockers Protocol Passed - 01/27/2022 4:32 PM Passed - BP on record in the past year Clinician-entered: BP Readings from Last 3 Encounters: 12/27/21 126/74 12/24/21 114/62 10/25/21 124/72 Patient-entered: No data recorded Passed - Visit with relevant provider in past 12 months or upcoming 90 days Recent Visits Date Type Provider Dept 12/27/21 Office Visit Cate Patel MD [facility] 06/28/21 Office Visit Cate Patel MD [facility] 03/01/21 Office Visit Cate Patel MD [facility] Showing recent visits within past 365 days and meeting all other requirements Future Appointments No visits were found meeting these conditions. Showing future appointments within next 90 days and meeting all other requirements lisinopril-hydroCHLOROthiazide (PRINZIDE, ZESTORETIC) 20-25 MG Tablet 90 Tablet 0 Sig: Take 1 tablet by mouth once daily Nando Inhibitors and Diuretics Combo Protocol Passed - 01/27/2022 4:32 PM Passed - Serum potassium on record [...] Clinician-entered: BP Readings from Last 3 Encounters: 12/27/21 126/74 12/24/21 114/62 10/25/21 124/72 Patient-entered: No data recorded Passed - Visit with relevant provider in past 12 months or upcoming 90 days Recent Visits Date Type Provider Dept 12/27/21 Office Visit Cate Patel MD [facility] [address] 06/28/21 Office Visit Cate Patel MD [facility] [address] 03/01/21 Office Visit Cate Patel MD [facility] [address] Showing recent visits within past 365 days and meeting all other requirements Future Appointments No visits were found meeting these conditions. Showing future appointments within next 90 days and meeting all other requirements Passed - GFR on record in past 12 months GFR, EST. NONAFRICAN Date Value Ref Range Status 12/19/2021 42 (L) >=60 Final levothyroxine (SYNTHROID) 75 MCG Tablet 90 Tablet 0 Sig: Take 1 tablet by mouth once daily Thyroid Hormones Protocol Passed - 01/27/2022 4:32 PM Passed - Visit with relevant provider in past 12 months or upcoming 90 days Recent Visits Date Type Provider Dept 12/27/21 Office Visit Cate Patel MD [facility] [address] 06/28/21 Office Visit Cate Patel MD [facility] [address] 03/01/21 Office Visit Cate Patel MD [facility] [employer] [facility] Showing recent visits within past 365 days and meeting all other requirements Future Appointments No visits were found meeting these conditions. Showing future appointments within next 90 days and meeting all other requirements Passed - Normal TSH in past 12 months TSH Date Value Ref Range Status 12/19/2021 1.100 0.270 - 4.200 mIU/L Final documented in this encounter Plan of Treatment Not on file documented as of this encounter Visit Diagnoses Diagnosis Hyperlipidemia, unspecified hyperlipidemia type Essential hypertension Unspecified essential hypertension Obesity, Class III, BMI 40-49.9 (morbid obesity) (HCC) Morbid obesity Acquired hypothyroidism Unspecified hypothyroidism documented in this encounter Additional Health Concerns Assessment Noted Time PHQ-9 Depression Total Score: 0 08/30/20 19 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
--- OUTSIDE RECORDS SUMMARY | 2024-09-21 04:17 | XMS_ITS | Encounter Summary ---
Author Organization [facility] Address [address] [place] [address] Phone Care Team Providers Care Epic Analyst Name Role Phone Liliya Rai MD Unavailable Cate Patel MD Primary Care Provider + [phone] Vadim Browning MD Unavailable Unavailable Sarah Borges MD Unavailable +- [phone] Reason for Visit * Reason Comments Follow-up Encounter Details Date Type Department Care Team (Latest Contact Info) Description 06/27/2022 10:00 AM CDT Office Visit [facility] - Primary Care - [facility] [address] [place] [address] Cate Patel MD [address] [place], [place] [id number] Encounter for immunization (Primary Dx); Primary hypertension; Hyperlipidemia, unspecified hyperlipidemia type; Hypothyroidism, unspecified type; IFG (impaired fasting glucose) Discharge Disposition: Discharged [...] to have Coronavirus/COVID-19? No / Unsure 06/27/2022 9:35 AM CDT documented as of this encounter Last Filed Vital Signs Vital Sign Reading Time Taken Comments Blood Pressure 120/62 06/27/2022 10:02 AM CDT Pulse 77 06/27/2022 10:02 AM CDT Temperature 36.6 ??C (97.9 ??F) 06/27/2022 10:02 AM C DT Respiratory Rate 18 06/27/2022 10:02 AM CDT Oxygen Saturation 96% 06/27/2022 10:02 AM CDT Inhaled Oxygen Concentration - - Weight 85.7 kg (189 lb) 06/27/2022 10:02 AM CDT Height 157.5 cm (5' 2 ) 06/27/2022 10:02 AM CDT Body Mass Index 34.57 06/27/2022 10:02 AM CDT documented in this encounter Progress Notes * Jessy Fatima RMA - 06/27/2022 10:00 AM CDT Silvia Pennington Gera, 77 y.o., female is here for Follow-up Medication Refills: Patient reports/denies need for medication refills. Orders Pended: no Requested Prescriptions No prescriptions requested or ordered in this encounter Home Medications Medication Sig Start Date End Date Taking? Authorizing Provider Aspirin 81 MG Tablet Take 81 mg by mouth daily. Yes Devin Singh MD Calcium Carbonate-Vitamin D (CALCIUM 500 + D PO) Take 1 Tab by mouth daily. Yes Devin Singh MD Cholecalciferol (VITAMIN D3) 1000 UNIT Tablet Take 1,000 Units by mouth daily. Yes Devin Singh MD dilTIAZem (CARDIZEM CD) 240 MG CAPSULE SR 24 HR Take 1 capsule by mouth once daily 04/29/22 Yes Cate Patel MD levothyroxine (SYNTHROID) 75 MCG Tablet Take 1 tablet by mouth once daily 04/29/22 Yes Cate Patel MD lisinopril-hydroCHLOROthiazide (PRINZIDE, ZESTORETIC) 20-25 MG Tablet Take 1 tablet by mouth once daily 04/29/22 Yes Cate Patel MD Loperamide HCl (IMODIUM) 2 MG Tablet Take 1 Tab by mouth daily as needed. Yes ProviderDevin MD meclizine (ANTIVERT) 25 MG Tablet Take 1 Tablet by mouth every 8 hours as needed for Dizziness. 03/01/21 Yes Cate Patel MD Melatonin 5 MG Capsule Take 5 mg by mouth nightly. Yes ProviderDevin MD omeprazole (PriLOSEC) 40 MG CAPSULE DELAYED RELEASE Take 1 capsule by mouth once daily 10/22/21 Yes Cate Patel MD simvastatin (ZOCOR) 5 MG Tablet TAKE 1 TABLET BY MOUTH ONCE DAILY IN THE EVENING 04/29/22 Yes Cate Patel MD Topiramate 50 MG Tablet Take 1 tablet by mouth twice daily 04/29/22 Yes Cate Patel MD Zinc Sulfate (ZINCATE PO) Take 1 Tab by mouth daily. Yes Provider, MD Devin There are no discontinued medications. I have reviewed the home medication list with the patient and have reconciled discrepancies. The list is accurate to the best of my knowledge. Smoking Status: Social History Tobacco Use ??? Smoking status: Never Smoker ??? Smokeless tobacco: Never Used Vaping Use ??? Vaping Use: Never used Substance Use Topics ??? Alcohol use: No Alcohol/week: 0.0 oz ??? Drug use: No Smoking Cessation Counseling Given: no Health Care Maintenance: Health Maintenance Due Topic Date Due ??? Hepatitis B Immunization (1 of 3 - 3-dose series) Never done ??? SARS-COV-2 Immunization (4 - Booster for Pfizer series) 06/04/2022 ??? Influenza Immunization (1) 06/06/2022 Orders Pended: no The following BPA's have been addressed with the patient today: Flu * Jessy Fatima RMA - 06/27/2022 10:00 AM CDT Silvia is here for Flu immunizations per order of Dr. Esposito dated 06/27/22. Administered in left deltoid . Vaccine Information Sheet(s) were given on 06/27/22. Verbal consent was obtained. Silvia tolerated the immunization well without incident. See Immunization activity for details. * Cate Patel MD - 06/27/2022 10:00 AM CDT Subjective Chief Complaint Patient presents with ??? Follow-up History of Present Illness Silvia presents here for a 6-month followup visit. Vitals are stable with a BP of 120/62 mmHg. She continues to take lisinopril/HCTZ 20/25 mg daily and diltiazem CD 240 mg daily. She denies having any specific problems or concerns. Encouraged to get Bivalent COVID vaccine. Her last booster vaccine was on 04/09/2022. She will go to the nearest pharmacy and get it. Her labs done on 06/24/2022 were reviewed. Thyroid functions are normal. Hemoglobin A1c is normal at 5.6. Lipid panel shows slightly elevated total cholesterol of 221, LDL is at goal at 130, HDL is very good at 94.3. CMP shows impaired fasting glucose of 104, creatinine is 1.31 with an EGFR of 40.Sodium level is slightly low. Potassium and chloride levels are normal. LFT's are normal. CBC showsa hemoglobin of 11.3. She is known to have iron deficiency anemia, but does not take any iron supplements. She has seen hematology PA in the past. She has an appointment with [facility], too. IJN: [id number] ROS: RESPIRATORY: Patient denies shortness of breath, chronic cough or other respiratory problems. CARDIAC: Patient denies chest pain, chest pressure, palpitations, diaphoresis, chest pain radiating into arms or neck. PMH/PSH/FH/SH/medications/allergies/health maintenance entries were reviewed with patient and updated. Objective: Physical Exam Vitals: 06/27/22 1002 BP: 120/62 Pulse: 77 Resp: 18 Temp: 97.9 ??F (36.6 ??C) TempSrc: Temporal SpO2: 96% Weight: 189 lb (85.7 kg) Height: 5' 2 (1.575 m) Body mass index is 34.57 kg/m??. Constitutional: She appears well-developed and well-nourished. No distress. HENT: Head: Atraumatic, normocephalic. Cardiovascular: Normal rate, regular rhythm, normal heart sounds and intact distal pulses. No murmur/rubs/gallops heard. Pulmonary/Chest: clear to auscultation bilaterally, no crepts or wheezes. Musculoskeletal/extremities: no pedal edema, no calf tenderness. Skin: Skin is warm and dry. Assessment and Plan Silvia Boss presents here for Follow-up 1. Primary hypertension - continue lisinopril/HCTZ 20/25 mg q.d., diltiazem CD 2 40 mg q.d. 2. Hyperlipidemia, unspecified hyperlipidemia type - continue simvastatin 5 mg q.d. 3. Hypothyroidism, unspecified type - continue levothyroxine 75 mcg q.d. 4. IFG (impaired fasting glucose) - Advised Low carb diet, low concentrated sweets, exercise and weight loss. 5. Encounter for immunization - INFLUENZA VACCINE QUAD IM - INFLUENZA (>3) IMMUNIZATION QUESTIONS Followup: Return in about 6 months (around 12/25/2022).with labs done 1 week prior to next appointment. The patient understood the plan, questions were answered and AVS including the updated medication list was provided to the patient. Documentation for this visit on 06/27/22 was completed using a template. I have seen and examined the patient. Everything documented was personally performed at this visit with the necessary additions, deletions and changes made as appropriate. This note was dictated using M*Linktone fluency dictation system and there may be errors in enroller. Despite proof reading the note, there may be mistakes and I apologize for those. Cate Patel MD documented in this encounter Plan of Treatment Scheduled Orders Name Type Priority Associated Diagnoses Orde r Schedule COMPLETE BLOOD COUNT (CBC) WITH DIFF Lab Routine Primary hypertension IFG (impaired fasting glucose) Expected: 12/24/2022 (Approximate), Expires: 03/04/2023 CMP (COMPREHENSIVE METABOLIC PANEL) Lab Routine Primary hypertension IFG (impaired fasting glucose) Expected: 12/24/2022 (Approximate), Expires: 03/04/2023 LIPID PANEL Lab Routine Primary hypertension IFG (impaired fasting glucose) Expected: 12/24/2022 (Approximate), Expires: 03/04/2023 HEMOGLOBIN A1C W/ ESTIMATED GLUCOSE Lab Routine Primary hypertension IFG (impaired fasting glucose) Expected: 12/24/2022 (Approximate), Expires: 03/04/2023 THYROXINE (T4) FREE Lab Routine Primary hypertension IFG (impaired fasting glucose) Expected: 12/24/2022 (Approximate), Expires: 03/04/2023 THYROID STIMULATING HORMONE (TSH) Lab Routine Primary hypertension IFG (impaired fasting glucose) Expected: 12/24/2022 (Approximate), Expires: 03/04/2023 documented as of this encounter Visit Diagnoses Diagnosis Encounter for immunization- Primary Need for other specified prophylactic vaccination against single bacterial disease Primary hypertension Unspecified essential hypertension Hyperlipidemia, unspecified hyperlipidemia type Hypothyroidism, unspecified type IFG (impaired fasting glucose) Impaired fasting glucose documented in this encounter Additional Health Concerns Assessment Noted Time PHQ-9 Depression Total Score: 0 08/30/20 19 3:00 PM PHOTOGRAPHER NEWS documented as of this encounter Care Teams Epic Analyst Relationship Specialty Start Date End Date Cate Patel MD [address] [place] [address] PCP - General Family Medicine 12/11/20 03/05/23 Liliya Rai MD [address] [address] Consulting Physician Endocrinology 10/24/20 Vadim Browning MD [address] [place] [address] Consulting Physician General Surgery 03/22/21 Sarah Borges MD [address] [place] [address] Consulting Physician Endocrinology 03/22/21 documented as of this encounter
--- OUTSIDE RECORDS SUMMARY | 2024-09-21 04:17 | XMS_ITS | Encounter Summary ---
Author Organization [facility] Address [address] [place] [address] Phone Care Team Providers Care Auto Appraiser Name Role Phone Liliya Rai MD Unavailable Cate Patel MD Primary Care Provider [phone] Vadim Browning MD Unavailable Unavailable Sarah Borges MD Unavailable +- [phone] Guerrero Nicholson MD Primary Care Provider Reason for Visit * Reason Comments Medication Refill Encounter Details Date Type Department Care Team (Late st Contact Info) Description 07/20/2021 Refill [facility] [address] [place], [place] [id number] Cate Patel MD [address] [place] [address] Medication Refill Social History Tobacco [...] have Coronavirus / COVID-19? No / Unsure 07/17/2021 9:15 AM CDT documented as of this encounter Miscellaneous Notes * Telephone Encounter - Vira Shelton RN - 07/20/2021 8:03 AM CDT Medication approved and signed per standing order protocol. documented in this encounter Plan of Treatment Not on file documented as of this encounter Visit Diagnoses Diagnosis Essential hypertension Unspecified essential hypertension Acquired hypothyroidism Unspecified hypothyroidism documented in this encounter Additional Health Concerns Assessment Noted Time PHQ-9 Depression Total Score: 0 08/30/20 19 3:00 PM LEAD RECOVERER documented as of this encounter Care Teams Auto Appraiser Relationship Specialty Start Date End Date Cate Patel MD [address] [place] [address] PCP - General Family Medicine 12/11/20 03/05/23 Guerrero Nicholson MD [address] [facility] [address] [place] [address] PCP - General Neurology 07/30/23 Liliya Rai MD [address] [address] Consulting Physician Endocrinology 10/24/20 Vadim Browning MD [address] [place] [address] Consulting Physician General Surgery 03/22/21 Sarah Borges MD [address] [place] [address] Consulting Physician Endocrinology 03/22/21 documented as of this encounter
--- OUTSIDE RECORDS SUMMARY | 2024-09-21 04:17 | XMS_ITS | Encounter Summary ---
Author Organization [facility] Address [address] [place] [address] Phone Care Team Providers Care Svp Digital Sales Name Role Phone Liliya Rai MD Unavailable Cate Patel MD Primary Care Provider + [phone] Vadim Browning MD Unavailable Unavailable Sarah Borges MD Unavailable [phone] Reason for Visit * Reason Comments Follow-up thyroid Encounter Details Date Type Department Care Team (Latest Contact Info) Description 10/25/2021 9:30 AM IRON ERECTOR Office Visit [facility] - Endocrinology [facility] [address] [place] [address] Liliya Rai MD [address] [address] Postablative hypothyroidism (Primary Dx); Depressed mood Discharge Disposition: Discharged to home or Selfcare [...] COVID-19? No / Unsure 10/25/2021 10:08 AM IRON ERECTOR documented as of this encounter Last Filed Vital Signs Vital Sign Reading Time Taken Comments Blood Pressure 124/72 10/25/2021 9:20 AM IRON ERECTOR Pulse 100 10/25/2021 9:20 AM IRON ERECTOR Temperature 36.8 ??C (98.3 ??F) 10/25/2021 9:20 AM CS T Respiratory Rate 18 10/25/2021 9:20 AM IRON ERECTOR Oxygen Saturation 97% 10/25/2021 9:20 AM IRON ERECTOR Inhaled Oxygen Concentration - - Weight 91.4 kg (201 lb 9.6 oz) 10/25/2021 9:20 A M IRON ERECTOR Height 157.5 cm (5' 2 ) 10/25/2021 9:20 AM IRON ERECTOR Body Mass Index 36.87 10/25/2021 9:20 AM IRON ERECTOR documented in this encounter Patient Instructions * Patient Instructions* Liliya Rai MD - 10/25/2021 9:30 AM IRON ERECTOR Please continue levothyroxine 75 mcg daily ?? Please check thyroid function test ?? Additional steps and management will then be determined when the aforementioned laboratory result is available for review.? Follow up visit in 6 months ERECTOR documented in this encounter Progress Notes * Liliya Rai MD - 10/25/2021 9:30 AM CST Subjective&Objective: Ms. Boss is a 76-year-old woman who comes to the Endocrinology Offices to discuss management of hypothyroidism. Other pertinent health history includes hyperthyroidism s/p PAINTER, pituitary tumor, OA,and obesity. The patient reports she recently lost her son due to firearm accident. Presently, Ms. Boss takes levothyroxine 75 mcg daily for management of hypothyroidism. The patient reports that she takes thyroxine on an empty stomach with water as intended. The patient denied missing doses, and she also denied symptoms that would be worrisome for thyroid hormone over-replacement or under-replacement. Serum TSH checked in June 2021 was 1.2 mIU/L (reference range 0.27 to 4.2). Simultaneously measured free T4 was 1.4 ng/mL (reference range 0.9 to 1.7). Review of Systems Constitutional: Positive for poor appetite, lack of energy, and depressed mood Eyes: Negative for pain and visual disturbance. Respiratory: Negative for cough and shortness of breath. Cardiovascular: Negative for chest pain and palpitations. Endocrine: Negative for heat or cold intolerance Physical Exam Vitals: 10/25/21 0920 BP: 124/72 Pulse: 100 Resp: 18 Temp: 98.3 ??F (36.8 ??C) SpO2: 97% Weight: 201 lb 9.6 oz (91.4 kg) Height: 5' 2 (1.575 m) Constitutional: appears well-developed and well-nourished. No acute distress. Eyes: EOM are normal, Not icteric Neck: Normal range of motion, Neck supple Cardiovascular: Normal rate and regular rhythm Pulmonary/Chest: Effort normal and breath sounds normal Neurological: No significant tremor noted on arms extended DIAGNOSTIC DATA: Lab Results Component Value Date TSH 1.290 06/18/2021 T4FREE 1.4 06/18/2021 Assessment and Plan Ms. 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 Treatment consideration was discussed with her at some length. Arrangement will be made for thyroid function test. Additional steps in management to be determined once result is available for review. The patient will return for office reevaluation in 6 months. PLAN: 1. Continue LT4 75 mcg daily 2. Check thyroid function test 3. Further plan based on #2 4. RTC in 6 months Depressed mood PLAN: 1. Defer it to PCP (The patient will contact PCP's office today) Total time spent on this encounter on this date of service, including pre-visit review of separately obtained history, [id number] interaction performing medically appropriate physical exam, patientcounseling/education, interpretation of diagnostic results, care coordination and documentation was22 minute Liliya Rai MD 10/25/2021 ERECTOR documented in this encounter Plan of Treatment Not on file documented as of this encounter Results * THYROXINE (T4) FREE (10/25/2021 10:23 AM IRON ERECTOR) T4 FREE 1.5 0.9 - 1.7 ng/dL 10/25/2021 11:40 AM IRON ERECTOR [facility] Blood Venipuncture / Unknown 10/25/2021 10:23 AM IRON ERECTOR 10/25/2021 11:09 AM IRON ERECTOR us Liliya Rai MD CHEMISTRY ORDERABLES Final Resul t Performing Organization Address City/[facility]/ZIP Co de Phone Number [facility] [address] [place] [address] * THYROID STIMULATING HORMONE (TSH) (10/25/2021 10:23 AM IRON ERECTOR) Pathologist [facility] TSH 1.180 0.270 - 4.200 mIU/L 10/25/2021 11:40 AM IRON ERECTOR [facility] Blood Venipuncture / Unknown 10/25/2021 10:23 AM IRON ERECTOR 10/25/2021 11:09 AM IRON ERECTOR us Liliya Rai MD CHEMISTRY ORDERABLES Final Resul t Performing Organization Address City/[facility]/ZIP Co de Phone Number [facility] [address] [place] [address] documented in this encounter Visit Diagnoses Diagnosis Postablative hypothyroidism- Primary Other postablative hypothyroidism Depressed mood documented in this encounter Additional Health Concerns Assessment Noted Time PHQ-9 Depression Total Score: 0 08/30/20 19 3:00 PM IRON ERECTOR documented as of this encounter Care Teams Svp Digital Sales Relationship Specialty Start Date End Date Cate aPtel MD [address] [place] [address] PCP - General Family Medicine 12/11/20 03/05/23 Liliya Rai MD [address] [address] Consulting Physician Endocrinology 10/24/20 Vadim Browning MD [address] [place] [address] Consulting Physician General Surgery 03/22/21 Sarah Borges MD [address] [place] [address] Consulting Physician Endocrinology 03/22/21 documented as of this encounter
--- OUTSIDE RECORDS SUMMARY | 2024-09-21 04:17 | XMS_ITS | Clinical Summary ---
Author Organization [facility] Address [address] [place] [address] Care Team Providers Care Health Advisor Name Role Phone Unavailable Primary Care Provider Unavailabl e Source Comments [facility],non-owned Affiliates and Associated Physician Practices is amultiple site organization consisting of ambulatory clinics and hospital sitesin [place], [place], [place] and [place]. This disclosure is being madepursuant to the Care Everywhere program and may not contain all information available regarding this patient. Last updated 18.[facility] Handseeing Information Social History Tobacco Use Types Packs/Day Years Used Date Smoking Tobacco: Never Assessed Sex and Gender Information Value Date Recorded Sex Assigned at Not on file Gender Identity Not on file Sexual Orientation Not on file Plan of Treatment Health Maintenance Due Date Last Done Comments BONE DENSITY TESTING 1945 MEDICARE AWV ? 12 MONTHS 1945 HEPATITIS C SCREENING 05/07/1965 DTAP/TDAP/TD VACCINES (1 - Tdap) 1966 ZOSTER VACCINE (1 of 2) 1997 PNEUMOCOCCAL VACCINE 65+ (1 of 1 - PCV) 2012 Respiratory Syncytial Virus (RSV) Vaccine Pt: or over 60 yrs (1 - 1-dose 75+ series) 2022 DEPRESSION SCREENING 10/06/2023 COVID-19 VACCINE ( - 2023-2 5 season) 2024 INFLUENZA VACCINE (#1) 2024 HEPATITIS B VACCINE Aged Out No longe r eligible based on patient's age to complete this topic HIB VACCINE Aged Out No longer eligi ble based on patient's age to complete this topic HPV VACCINE Aged Out No longer eligi ble based on patient's age to complete this topic MENINGOCOCCAL VACCINE Aged Out No carissa sedrick eligible based on patient's age to complete this topic
--- OUTSIDE RECORDS SUMMARY | 2024-09-21 04:17 | XMS_ITS | Encounter Summary ---
Author Organization [facility] Address [address] [place] [address] Phone Care Team Providers Care Woven Label Designer Name Role Phone Liliya Rai MD Unavailable Cate Patel MD Primary Care Provider + [phone] Vadim Browning MD Unavailable Unavailable Sarah Borges MD Unavailable [phone] Reason for Visit * Reason Comments Thyroid Problem Follow up Encounter Details Date Type Department Care Team (Late st Contact Info) Description 04/25/2022 9:30 AM CDT Office Visit [facility] - Endocrinology - [place] [address] [place] [address] Liliya Rai MD #[address] [address] Hypothyroidism, unspecified type (Primary Dx); Class 2 severe obesity due to excess calories with serious comorbidity and body mass index (BMI) of 36.0 to 36.9 in adult (HCC) Discharge Disposition: Discharged to home or Selfcare Social History Tobacco Use Types Packs/Day Years Used Date Smoking Tobacco: Never Smokeless Tobacco: Never Tobacco Cessation:Counseling Given: No Alcohol Use Standard Drinks/Week Comments No 0 [...] Sign Reading Time Taken Comments Blood Pressure 106/54 04/25/2022 9:36 AM CDT Pulse 92 04/25/2022 9:36 AM CDT Temperature 36 ??C (96.8 ??F) 04/25/2022 9:36 AM CDT Respiratory Rate 18 04/25/2022 9:36 AM CDT Oxygen Saturation 97% 04/25/2022 9:36 AM CDT Inhaled Oxygen Concentration - - Weight 89.4 kg (197 lb) 04/25/2022 9:36 AM CDT Height 157.5 cm (5' 2 ) 04/25/2022 9:36 AM CDT Body Mass Index 36.03 04/25/2022 9:36 AM CDT documented in this encounter Patient Instructions * Patient Instructions* Liliya Rai MD - 04/25/2022 9:30 AM CDT Please continue levothyroxine 75 mcg daily ?? Please check thyroid function test??before the next visit ? Follow up visit in 6 months documented in this encounter Progress Notes * Liliya Rai MD - 04/25/2022 9:30 AM CDT Subjective&Objective: Ms. Boss is a 76-year-old woman who comes to the Endocrinology Offices to discuss management of hypothyroidism. Other pertinent health history includes memory loss, hyperthyroidism s/p PAINTER, pituitary macroadenoma, OA, and obesity. The patient takes levothyroxine 75 mcg daily for management of hypothyroidism. The patient reports that she takes thyroxine on an empty stomach with water as intended. The patient denied missing doses, and she also denied symptoms that would be worrisome for thyroid hormone over-replacement or under-replacement. Serum TSH checked in December 2021 was 1.1 mIU/L (reference range 0.27 to 4.2). Simultaneously measured free T4 was 1.5 ng/mL (reference range 0.9 to 1.7). Review of Systems Constitutional: Negative for activity change, appetite change. (-) fatigue, (-) unexpected weight change. Eyes: Negative for pain and visual disturbance. Respiratory: Negative for cough and shortness of breath. Cardiovascular: Negative for chest pain and palpitations. Gastrointestinal: Negative for diarrhea, constipation and abdominal distention. Endocrine: Negative for heat or cold intolerance Physical Exam Vitals: 04/25/22 0936 BP: 106/54 BP Location: Left Arm BP Position: Sitting BP Cuff Size: Large Pulse: 92 Resp: 18 Temp: 96.8 ??F (36 ??C) TempSrc: Temporal SpO2: 97% Weight: 197 lb (89.4 kg) Height: 5' 2 (1.575 m) Constitutional: appears well-developed and well-nourished. No acute distress. Eyes: EOM are normal, Not icteric Neck: Normal range of motion, Neck supple Cardiovascular: Normal rate and regular rhythm Pulmonary/Chest: Effort normal and breath sounds normal Neurological: No significant tremor noted on arms extended DIAGNOSTIC DATA: Lab Results Component Value Date TSH 1.100 12/19/2021 T4FREE 1.5 12/19/2021 Lab Results Component Value Date HEMATOCRIT 36.1 12/19/2021 Lab Results Component Value Date CREATININE 1.25 (H) 12/19/2021 GFRNA 42 (L) 12/19/2021 CALCIUM 9.6 12/19/2021 SGPTALT 9 12/19/2021 Lab Results Component Value Date SODIUM 140 12/19/2021 POTASSIUM 4.3 12/19/2021 CHLORIDE 105 12/19/2021 CO2VEN 23 12/19/2021 MAGNESIUM 1.8 04/07/2018 Lab Results Component Value Date CHOLESTEROL 223 (H) 12/19/2021 TRIGLYCRIDES 89 12/19/2021 HDLCHOLESTE 88.1 12/19/2021 LDL 117 12/19/2021 Assessment and Plan Ms. Boss is an elderly woman with hypothyroidism who appears to be clinically euthyroid, and TSH checked in December 2021 was well within the range of 0.4 to 3.0 considered optimal by the [employer] (the patient's measurement was 1.1 uI/mL, reference range 0.27-4.2). Test result and treatment consideration were discussed with her at some length. She will trish nue current medication for management of hypothyroidism. The patient will return for office reevaluation in 6 months. PLAN: 1. Continue LT4 75 mcg daily 2. Check thyroid function test before the next visit 3. RTC in 6 months Obesity PLAN: 1. Low carb and calorie diet 2. Avoid snack and beverage between meal and at bedtime Total time spent on this encounter on this date of service, including pre-visit review of separately obtained history, [id number] interaction performing medically appropriate physical exam, patientcounseling/education, interpretation of diagnostic results, care coordination and documentation was25 minute Liliya Rai MD 04/25/2022 documented in this encounter Plan of Treatment Scheduled Orders Name Type Priority Associated Diagnoses Orde r Schedule THYROID STIMULATING HORMONE (TSH) Lab Routine Hypothyroidism, unspecified type Expected: 10/25/2022, Expires: 11/25/2022 THYROXINE (T4) FREE Lab Routine Hypothyroidism, unspecified type Expected: 10/25/2022, Expires: 11/25/2022 documented as of this encounter Visit Diagnoses Diagnosis Hypothyroidism, unspecified type- Primary Class 2 severe obesity due to excess calories with serious comorbidity and body mass index (BMI) of 36.0 to 36.9 in adult (HCC) documented in this encounter Additional Health Concerns Assessment Noted Time PHQ-9 Depression Total Score: 0 08/30/20 19 3:00 PM PATIENT SAFETY MANAGER documented as of this encounter Care Teams Woven Label Designer Relationship Specialty Start Date End Date Cate Patel MD [address] [place] [address] PCP - General Family Medicine 12/11/20 03/05/23 Liliya Rai MD #[address] [phone] Consulting Physician Endocrinology 10/24/20 Vadim Browning MD [address] [place] [address] Consulting Physician General Surgery 03/22/21 Sarah Borges MD [address] [place] [address] Consulting Physician Endocrinology 03/22/21 documented as of this encounter
--- OUTSIDE RECORDS SUMMARY | 2024-09-21 04:17 | XMS_ITS | Encounter Summary ---
Author Organization [facility] Address [address] [place] [address] Phone Care Team Providers Care Pump Attendant Name Role Phone Liliya Rai MD Unavailable Vadim Browning MD Unavailable Unavailable Sarah Borges MD Unavailable [phone] Guerrero Nicholson MD Primary Care Provider Reason for Visit * Reason Comments Follow-up Encounter Details Date Type Department Care Team (Late st Contact Info) Description 07/30/2023 2:45 PM CDT Office Visit [facility] Oncology Services [address] [place] [phone] Alee Ortiz Marcelle, PAC [address] [place] [address] Iron deficiency anemia due to chronic blood loss (Primary Dx); Chronic renal failure, stage 3b (HCC); Folic acid deficiency Discharge Disposition: Discharged to home or Selfcare [...] Mass Index 32.01 07/30/2023 2:43 PM CDT documented in this encounter Patient Instructions * Patient Instructions* Alee Ortiz, PAC - 07/30/2023 2:45 PM CDT Continue iron rich diet- handout provided Avoid foods/ beverages that interfere with iron absorption Certain heartburn medication such as omeprazole (Prilosec) interfere with iron absorption Famotidine (Pepcid) does not interfere with iron absorption Avoid ibuprofen/Aleve/naproxen-may use Tylenol or Tylenol arthritis as needed for pain. Begin folic acid 1 mg daily. Once establish with primary care provider, they may monitor CBC, iron, ferritin, B12, folic acid. May return to Hematology as needed Please establish with a new primary care provider to help manage thyroid medication as well as acidreflux medication, blood pressure medication and labs. Will need to discuss renal function with new primary care as consult with nephrology may be indicated. Continue follow-up with Neurology as indicated. PLEASE READ: If you are required to have labs/ testing done PRIOR to follow up, please have testing completed nolater than 2-5 days prior to appointment. If you do not have testing completed prior to your scheduled follow-up appointment you will be asked to reschedule until testing completed All patients are expected to check in with registration 15 minutes prior to all appointments. Patients who arrive 15 minutes or more after their scheduled appointment time may be required to reschedule. Please schedule follow-up in near future to [...] call or go to the emergency department. * Attachments The following attachments cannot be sent through Care Everywhere. * Iron-Rich Diet (Rwandan) documented in this encounter Progress Notes * Alee Ortiz PAC - 07/30/2023 2:45 PM CDT Outpatient Hem/Onc Progress Note Silvia Boss is a 78 y.o. female who presents for annual follow-up for iron- deficiency anemia/anemia of chronic kidney disease. She would previously been evaluated and required Injectafer 750 mg x2 infusions. Her last infusion was 09/16/2020. Since that time her CBC and iron have been fairly stable. Upon chart review her renal function has declined. She reports she has not established with a new primary care provider since Dr. Cate Patel left [facility]. She is accompanied by her son who expresses some confusion and feeling overwhelmed by her numerous healthcare providers and needs. Due toher impaired memory she is difficulty providing accurate information to her family. At this time she offers no new complaints or concerns. She did see her neurologist earlier today. ALLERGIES: No Known Allergies MEDICATIONS: Current Outpatient Medications Medication Sig Dispense Refill ??? Aspirin 81 MG Tablet Take 81 mg by mouth daily. ??? dilTIAZem (CARDIZEM CD) 240 MG CAPSULE SR 24 HR Take 1 Capsule by mouth daily. 90 Capsule 1 ??? folic acid (FOLVITE) 1 MG Tablet Take 1 Tablet by mouth daily. 30 Tablet 1 ??? levothyroxine (SYNTHROID) 75 MCG Tablet Take 1 Tablet by mouth daily. 90 Tablet 1 ??? lisinopril-hydroCHLOROthiazide (PRINZIDE, ZESTORETIC) 20-25 MG Tablet Take 1 Tablet by mouth daily. 90 Tablet 1 ??? Loperamide HCl (IMODIUM) 2 MG Tablet Take 1 Tablet by mouth daily as needed for Diarrhea. 90 Tablet 1 ??? omeprazole (PriLOSEC) 40 MG CAPSULE DELAYED RELEASE Take 1 Capsule by mouth daily. 90 Capsule 1 ??? Topiramate 50 MG Tablet Take 1 Tablet by mouth 2 times daily. 180 Tablet 1 No current facility-administered medications for this visit. [...] TUNNEL RELEASE Bilateral ??? CATARACT REMOVAL Bilateral 2016 ??? COLONOSCOPY 12/04/2013 ??? HAMMER TOE SURGERY Right ??? HIP ARTHROPLASTY Left THR ??? HUMERUS SURGERY Right ORIF ??? LAMINECTOMY Lumbar spine ??? LITHOTRIPSY Right 10/01/2016 Procedure: Extracorporeal Shock Wave Lithotripsy RIGHT-; Surgeon: Neeta Edwards MD; Location:[facility]; Service: ??? OVARY REMOVAL ??? LAKHWINDER AND BSO Fibroids ??? TOTAL KNEE ARTHROPLASTY Bilateral ??? UPPER GASTROINTESTINAL ENDOSCOPY N/A 10/27/2015 Procedure: EGDcol plus dilatation with 54fr. zabala; Surgeon: Talha Catherine DO; Location: [facility]; Service: ??? UPPER GASTROINTESTINAL ENDOSCOPY N/A 06/26/2018 Procedure: EGD: yee test, mild esophageal dysmotility, hiatal hernia, dilation 54 fr zabala; Surgeon: Talha Catherine DO; Location: [facility]; Service: Gastroenterology ??? UPPER GASTROINTESTINAL ENDOSCOPY N/A 07/04/2021 Procedure: EGD-hiatal hernia-esophageal stricture-46F Zabala dilation-gastric body and antral biopsy; Surgeon: Teofilo Mccrary MD; Location: [facility]; Service: Gastroenterology SOCIAL: Social History Socioeconomic History ??? Marital status: Spouse name: Not on file ??? Number of children: 2 ??? Years of education: Not on file ??? Highest education level: Not on file Occupational History ??? Not on file Tobacco Use ??? Smoking status: Never ??? Smokeless tobacco: Never Vaping Use ??? Vaping Use: Never used [...] Sister ??? Hypertension Sister VITAL SIGNS: Vitals: 07/30/23 1443 BP: 129/67 BP Location: Left Arm BP Position: Sitting BP Cuff Size: Large Pulse: 72 Resp: 18 Temp: 98.9 ??F (37.2 ??C) SpO2: 99% Weight: 175 lb (79.4 kg) Height: 5' 2 (1.575 m) GENERAL EXAM: GENERAL: Well developed, well nourished, obese, in no acute distress. AAO x3. Cooperative. HEENT: Normocephalic. PERRLA. Nonicteric. NECK: Supple/ non tender/ full ROM LYMPH NODES: No adenopathy. CARDIOVASCULAR: RRR/ S1S2/ No m/g/c/r. PULMONARY: Respirations easy and regular. Breath sounds clear bilaterally. No rhonchi/ rales/ wheezes. MUSCULOSKELETAL: Normal gait and movement of extremities. Uses cane for stability. SKIN: General-warm, pink and dry. No rashes/ lesions. PSYCHIATRIC: Euthymic. Affect congruent with mood. Normal thought process. PAIN ASSESSMENT: 0 DATA: Results for orders placed or performed in visit on 07/30/23 FERRITIN Result Value Ref Range FERRITIN 121 5 - 204 ng/mL FOLIC ACID (FOLATE) Result Value Ref Range FOLATE 4.2 (L) 7.0 - 31.4 ng/mL IS THE PATIENT REQUIRED TO BE FASTING? No CMP (COMPREHENSIVE METABOLIC PANEL) Result Value Ref Range SODIUM 137 136 - 145 mmol/L POTASSIUM 3.7 3.5 - 5.1 mmol/L CHLORIDE 105 98 - 107 mmol/L CO2, VENOUS 21 (L) 22 - 30 mmol/L ANION GAP 14.7 <18.0 mmol/L GLUCOSE 108 (H) 70 - 99 mg/dL BUN 37 (H) 10 - 20 mg/dL CREATININE, BLOOD 1.53 (H) 0.60 - 1.00 mg/dL BUN/CREATININE RATIO 24 (H) 12 - 20 ratio TOTAL PROTEIN 7.1 6.3 - 8.2 g/dL ALBUMIN 4.3 3.5 - 5.0 g/dL A/G RATIO 1.5 1.0 - 2.2 CALCIUM 9.5 8.7 - 10.5 mg/dL T BILI 0.5 0.2 - 1.2 mg/dL SGOT (AST) 16 5 - 34 U/L SGPT (ALT) 9 0 - 55 U/L ALKALINE PHOSPHATASE 47 40 - 150 U/L IS THE PATIENT REQUIRED TO BE FASTING? No GFR, ESTIMATED 35 (L) >=60 GFR, EST. 40 (L) >=60 GFR, EST. NONAFRICAN 33 (L) >=60 VITAMIN B12 Result Value Ref Range VITAMIN B12 626 213 - 816 pg/mL IRON,TRANSFERN,CALC.TIBC,%SAT Result Value Ref Range IRON 77 25 - 156 mcg/dL TRANSFERRIN 245 173 - 360 mg/dL TIBC, CALCULATED 306 265 - 497 mcg/dL % SATURATION * 25 15 - 62 % CBC WITH AUTO DIFFERENTIAL Result Value Ref Range WBC 5.87 4.00 - 12.00 10(3)/mcL RBC 4.21 3.80 - 5.30 10(6)/mcL HEMOGLOBIN (HGB) 12.8 12.0 - 15.8 g/dL HEMATOCRIT (HCT) 38.7 36.0 - 47.0 % MCV 91.9 82.0 - 96.0 fL MCH 30.4 26.0 - 34.0 pg MCHC 33.1 31.0 - 36.0 g/dL PLATELET COUNT 312 140 - 440 10(3)/mcL RDW 13.9 11.8 - 15.5 % MPV 9.7 9.7 - 12.4 fL NEUTROPHILS 70.7 47.0 - 73.0 % LYMPHOCYTES 17.7 (L) 18.0 - 42.0 % MONOCYTES 9.5 4.0 - 12.0 % EOSINOPHILS 1.2 0.0 - 5.0 % BASOPHILS 0.9 0.0 - 1.0 % ABSOLUTE NEUTROPHILS 4.15 1.60 - 7.70 10(3)/mcL ABSOLUTE LYMPHOCYTES 1.04 (L) 1.30 - 3.20 10(3)/mcL ABSOLUTE MONOCYTES 0.56 0.20 - 1.00 10(3)/mcL ABSOLUTE EOSINOPHIL 0.07 0.00 - 0.40 10(3)/mcL ABSOLUTE BASOPHILS 0.05 0.00 - 0.10 10(3)/mcL NRBC PER 100 WBC 0 Assessment: Diagnoses and all orders for this visit: Iron deficiency anemia due to chronic blood loss - COMPLETE BLOOD COUNT (CBC) WITH DIFF; Future - VITAMIN B12; Future - FERRITIN; Future - CMP (COMPREHENSIVE METABOLIC PANEL); Future - IRON,TRANSFERN,CALC.TIBC,%SAT; Future Chronic renal failure, stage 3b (HCC) Folic acid deficiency - folic acid (FOLVITE) 1 MG Tablet; Take 1 Tablet by mouth daily. Plan: Reviewed and discussed above results. Will add folic acid supplement due to decreased folic acid. Reassured CBC and iron panel are stable. Lengthy discussion held regarding her impaired renal function and decline over the last few years. Advise certain medications such as her omeprazole as well as anti-inflammatories such as ibuprofen,Aleve, naproxen all impaired renal function. She does need to continue the omeprazole due to her past history but recommend avoiding NSAIDs and using kufr-cop-vboykfm generic Tylenol or Tylenol arthritis for pain. Lengthy discussion held over necessity of primary care to help monitor and provide care. She and her son both express understanding, since states they will get her established with a new primary care[facility]. Advised new primary care could monitor CBC in labs and she may return on an as- needed basis if there is any significant change. Diagnoses and all orders for this visit: Iron deficiency anemia due to chronic blood loss - COMPLETE BLOOD COUNT (CBC) WITH DIFF; Future - VITAMIN B12; Future - FERRITIN; Future - CMP (COMPREHENSIVE METABOLIC PANEL); Future - IRON,TRANSFERN,CALC.TIBC,%SAT; Future Chronic renal failure, stage 3b (HCC) Folic acid deficiency - folic acid (FOLVITE) 1 MG Tablet; Take 1 Tablet by mouth daily. Return in about 1 year (around 07/30/2024) for Anemia, Review labs/ tests after completed. The patient was given an opportunity to ask questions, and all questions answered to patient's satisfaction. Patient verbalizes understanding of the plan as outlined above. Patient Instructions Continue iron rich diet- handout provided Avoid foods/ beverages that interfere with iron absorption Certain heartburn medication such as omeprazole (Prilosec) interfere with iron absorption Famotidine (Pepcid) does not interfere with iron absorption Avoid ibuprofen/Aleve/naproxen-may use Tylenol or Tylenol arthritis as needed for pain. Begin folic acid 1 mg daily. Once establish with primary care provider, they may monitor CBC, iron, ferritin, B12, folic acid. May return to Hematology as needed Please establish with a new primary care provider to help manage thyroid medication as well as acidreflux medication, blood pressure medication and labs. Will need to discuss renal function with new primary care as consult with nephrology may be indicated. Continue follow-up with Neurology as indicated. PLEASE READ: If you are required to have labs/ testing done PRIOR to follow up, please have testing completed nolater than 2-5 days prior to appointment. If you do not have testing completed prior to your scheduled follow-up appointment you will be asked to reschedule until testing completed All patients are expected to check in with registration 15 minutes prior to all appointments. Patients who arrive 15 minutes or more after their scheduled appointment time may be required to reschedule. Please schedule follow-up in near future to [...] call or go to the emergency department. documented in this encounter Miscellaneous Notes * Interdisciplinary - Ev Ocampo - 07/30/2023 2:45 PM CDT The patient report no complaints during today's visit. Pain score is 0. She ambulated to the exam room with the use of a cane. Medication list reviewed and updated. * Interdisciplinary - Ev Ocampo - 07/30/2023 2:45 PM CDT AVS printed and handed to the patient as she was escorted to the lobby. The patient will be seen alpa as needed basis. documented in this encounter Plan of Treatment Scheduled Orders Name Type Priority Associated Diagnoses Orde r Schedule COMPLETE BLOOD COUNT (CBC) WITH DIFF Lab Routine Iron deficiency anemia due to chronic blood loss Expected: 07/12/2024, Expires: 10/12/2024 VITAMIN B12 Lab Routine Iron deficiency anemia due to chronic blood loss Expected: 07/12/2024, Expires: 10/12/2024 FERRITIN Lab Routine Iron deficiency anemia due to chronic blood loss Expected: 07/12/2024, Expires: 10/12/2024 CMP (COMPREHENSIVE METABOLIC PANEL) Lab Routine Iron deficiency anemia due to chronic blood loss Expected: 07/12/2024, Expires: 10/12/2024 IRON,TRANSFERN,CALC.TIBC ,%SAT Lab Routine Iron deficiency anemia due to chronic blood loss Expected: 07/12/2024, Expires: 10/12/2024 documented as of this encounter Visit Diagnoses Diagnosis Iron deficiency anemia due to chronic blood loss- Primary Iron deficiency anemia secondary to blood loss (chronic) Chronic renal failure, stage 3b (HCC) Folic acid deficiency Other B-complex deficiencies documented in this encounter Additional Health Concerns Assessment Noted Time PHQ-9 Depression Total Score: 0 08/30/20 19 3:00 PM ROCKET ENGINE TESTER documented as of this encounter Care Teams Pump Attendant Relationship Specialty Start Date End Date Guerrero Nicholson MD [address] [facility] [address] [place], [place] [id number] PCP - General Neurology 07/30/23 Liliya Rai MD [address] [phone] Consulting Physician Endocrinology 10/24/20 Vadim Browning MD #[address] [address] Consulting Physician General Surgery 03/22/21 Sarah Borges MD #[address] [phone] Consulting Physician Endocrinology 03/22/21 documented as of this encounter
--- OUTSIDE RECORDS SUMMARY | 2024-09-21 04:17 | XMS_ITS | Encounter Summary ---
Author Organization [employer] Care Team Providers Care Underwriting Specialist Name Role Phone Liliya Rai MD Unavailable Cate Patel MD Primary Care Provider [phone] Vadim Browning MD Unavailable Unavailable Sarah Borges MD Unavailable [phone] Encounter Details Date Type Department Care Team (Latest Contact Info) Description 12/27/2021 Travel Social History Tobacco Use Types Packs/Day [...] Total Score: 0 08/30/20 19 3:00 PM QUALITATIVE FIELD COORDINATOR documented as of this encounter Care Teams Underwriting Specialist Relationship Specialty Start Date End Date Cate Patel MD [address] [place] [address] PCP - General Family Medicine 12/11/20 03/05/23 Liliya Rai MD [address] [phone] Consulting Physician Endocrinology 10/24/20 Vadim Browning MD [address] [place] [address] Consulting Physician General Surgery 03/22/21 Sarah Borges MD [address] [place] [address] Consulting Physician Endocrinology 03/22/21 documented as of this encounter
--- OUTSIDE RECORDS SUMMARY | 2024-09-21 04:17 | XMS_ITS | Encounter Summary ---
Author Organization [facility] Address [address] [place] [address] Care Team Providers Care Cloth Napping Supervisor Name Role Phone Unavailable Primary Care Provider Unavailabl e Encounter Details Date Type Department Care Team (Late st Contact Info) Description 11/12/2018 Lab Requisition [facility] Care Pathology Lab [address] [place] [address] Madelyn Fontanez MD [address] [place] [address] Social History Tobacco Use Types Packs/Day Years Used Date Smoking Tobacco: Never Assessed Sex and Gender Information Value Date Recorded Sex Assigned at Not on file Gender Identity Not on file Sexual Orientation Not on file documented as of this encounter Plan of Treatment Not on file documented as of this encounter Procedures Procedure Name Priority Date/Time Associated Diagnosis Comments BONE MARROW BIOPSY (STL) Routine 11/11/2018 8:16 AM MECHANICAL RELIABILITY ENGINEER documented in this encounter Results * BONE MARROW BIOPSY (STL) (11/11/2018 8:16 AM MECHANICAL RELIABILITY ENGINEER) Case Report Bone Marrow Patholog y Report ?Case: [id number] ? Authorizing Provider: ??Madelyn Fontanez MD ? Collected: ? 11/11/2018 08:16 AM ? Pathologist: ? Goyo Rose MD ? Received: ?11/12/2018 02:18 PM ? Specimens: ?? A) - Bone Marrow Core, BN19-3 ? B) - Bone Marrow Clot, BN19-3 ? C) - Bone Marrow Aspirate, BN19-3 ? D) - Blood Peripheral, BN19-3 ? 11/13/2018 3:18 PM [facility] Final Diagnosis Bone marrow, aspirate, clot section, and core biopsy: - Normocellular marrow with maturing trilineage hematopoiesis. - No evidence of lymphoma or high-grade myeloid neoplasm. - See description. Peripheral blood smear: - Mild hypochromic, macrocytic anemia. 11/13/2018 3:18 PM [facility] Comment Overall, the bone marrow specimen is normocellular for age with maturing trilineage hematopoiesis and no evidence of lymphoma, a high-grade myeloid neoplasm, or significant dyspoiesis. Concurrent bone marrow flow cytometry ([id number]) demonstrates no evidence of non-Hodgkin lymphoma or a high-grade myeloid neoplasm. Non neoplastic conditions such as autoimmune, infectious, nutritional deficiency, peripheral destruction, marrow toxicity or medications must be ruled out. Low grade myelodysplastic condition cannot be ruled out and may be considered especially if cytogenetic clonal abnormality is detected. Correlation with clinical findings and relevant cytogenetic/molecular testing is required. CLIPPER [employer] TURNER/ 11/13/2018 3:18 PM [facility] Peripheral Smear Description Manual Differential Count (100 cells): 81% neutrophils, 13% lymphocytes, 4% monocytes, 2% eosinophils. Leukocyte number: normal. Granulocyte morphology: normal. No circulating blasts. Lymphocyte morphology: Normal. A few larger lymphocytes with moderate amount of cytoplasm. Erythrocyte number: decreased. Erythrocyte morphology: mildly macrocytic. Anisopoikilocytosis: not signifcant. Polychromasia: not significant. Platelet number: normal. Platelet morphology: normal. 11/13/2018 3:18 PM [facility] Bone Marrow Aspirate Differential count [...] All controls worked appropriately. 11/13/2018 3:18 PM [facility] Bone Marrow Core Biopsy and [...] seen (control is appropriate) 11/13/2018 3:18 PM [facility] Flow Cytometry Summary Concurrent flow cytometry ([id number]) shows no evidence of non Hodgkin lymphoma or high grade myeloid neoplasm. 11/13/2018 3:18 PM [facility] Clinical History The patient is 73 year-old woman with history of iron deficiency anemia and chronic fatigue with recent history of cellulitis of left breast and chest wall. 11/13/2018 3:18 PM [facility] Materials Received Received are 10 slides labeled as [id number] along with the outside pathology report. The materials originate from [facility], [address] [place] [address]. All materials are returned to the referring institution, along with a copy of our final report. 11/13/2018 3:18 PM [facility] Disclaimer The performance characteristics of all immunohistochemical and indirect immunofluorescence stains (if any) cited in this report were determined by the Histopathology Laboratory of [facility]. Some of these tests were developed by [...] the attending (teaching) pathologist. 11/13/2018 3:18 PM [facility] Embedded Images 11/13/2018 3:18 PM [facility] Pathology/Cytology PERIPHERAL BLOOD / Unknown 11/11/2018 8:16 AM MECHANICAL RELIABILITY ENGINEER 11/12/2018 2:18 PM MECHANICAL RELIABILITY ENGINEER Miscellaneous samples (specimen) BONE MARROW CLOT SPECIMEN / Unknown 11/11/2018 8:16 AM MECHANICAL RELIABILITY ENGINEER 11/12/2018 2:18 PM MECHANICAL RELIABILITY ENGINEER Miscellaneous samples (specimen) SPECIMEN FROM BONE MARROW OBTAINED BY ASPIRATION / Unknown 11/11/2018 8:16 AM MECHANICAL RELIABILITY ENGINEER 11/12/2018 2:18 PM MECHANICAL RELIABILITY ENGINEER Miscellaneous samples (specimen) PERIPHERAL BLOOD / Unknown 11/11/2018 8:16 AM MECHANICAL RELIABILITY ENGINEER 11/12/2018 2:18 PM MECHANICAL RELIABILITY ENGINEER Madelyn Fontanez MD LAB - PATHOLOGY/CYTO LOGY ORDERABLES Performing Organization Address City/State/[facility] Co de Phone Number [facility] [address] [phone] documented in this encounter Visit Diagnoses Not on filedocumented in this encounter
--- OUTSIDE RECORDS SUMMARY | 2024-09-21 04:17 | XMS_ITS | Encounter Summary ---
Author Organization [facility] Address [address] [place] [address] Phone Care Team Providers Care Pharmacy Stock Clerk Name Role Phone Liliya Rai MD Unavailable Cate Patel MD Primary Care Provider Vadim Browning MD Unavailable Unavailable Sarah Borges MD Unavailable [phone]- [phone] Encounter Details Date Type Department Care Team (Late st Contact Info) Description 06/27/2022 Telephone [facility] On[facility] Services [address] [place] [phone] Alee Ortiz, PAC [address] [place] [address] Social History Tobacco Use Types Packs/Day Years [...] encounter Miscellaneous Notes * Telephone Encounter - Alee Ortiz PAC - 06/27/2022 2:07 PM CDT Iron studies have been returned. Her saturation is 18%. If she is able to tolerate oral iron would recommend iron 325 mg 1 twice daily on an empty stomach with vitamin-C. If she is unable to tolerateoral iron we can do iron infusion she prefers. Repeat CBC and iron studies with ferritin in 3 months. documented in this encounter Plan of Treatment Not on file documented as of this encounter Visit Diagnoses Not on filedocumented in this encounter Additional Health Concerns Assessment Noted Time PHQ-9 Depression Total Score: 0 08/30/20 19 3:00 PM ENGLISH LECTURER documented as of this encounter Care Teams Pharmacy Stock Clerk Relationship Specialty Start Date End Date Cate Patel MD [address] [place] [address] PCP - General Family Medicine 12/11/20 03/05/23 Liliya Rai MD [address] [phone] Consulting Physician Endocrinology 10/24/20 Vadim Browning MD [address] [place] [address] Consulting Physician General Surgery 03/22/21 Sarah Borges MD [address] [place] [address] Consulting Physician Endocrinology 03/22/21 documented as of this encounter
--- OUTSIDE RECORDS SUMMARY | 2024-09-21 04:18 | XMS_ITS | Encounter Summary ---
Author Organization [facility] Address [address] [place] [address] Phone Care Team Providers Care Cheese Grader Name Role Phone Liliya Rai MD Unavailable Cate Patel MD Primary Care Provider + [phone] Vadim Browning MD Unavailable Unavailable Sarah Borges MD Unavailable [phone] Reason for Visit * Reason Onset Date Comments Medication Management 07/06/2021 Encounter Details Date Type Department Care Team (Late st Contact Info) Description 07/06/2021 Telephone [facility] - Gastroenterology [facility] [address] [place] [address] Teofilo Mccrary MD Medication Management Social History Tobacco Use Types [...] have Coronavirus / COVID-19? No / Unsure 07/04/2021 8:39 AM CDT documented as of this encounter Miscellaneous Notes * Telephone Encounter - Teofilo Mccrary MD - 07/06/2021 4:09 PM CDT SEE PATH REPORT. * Telephone Encounter - Vira Jimenez RN - 07/06/2021 3:[address] Mccrary, patient should take: TAKE OMRPRAZOLE 40 MG 1/2 HOURBEFORE EVENING MEAL Noted on AVS. Per chart review, patient noted to have omeprazole ordered by PCP on 06/22/2021. documented in this encounter Plan of Treatment Not on file documented as of this encounter Visit Diagnoses Not on filedocumented in this encounter Additional Health Concerns Assessment Noted Time PHQ-9 Depression Total Score: 0 08/30/20 19 3:00 PM NUMERICAL TOOL PROGRAMMER documented as of this encounter Care Teams Cheese Grader Relationship Specialty Start Date End Date Cate Patel MD [address] [place] [address] PCP - General Family Medicine 12/11/20 03/05/23 Liliya Rai MD [address] [phone] Consulting Physician Endocrinology 10/24/20 Vadim Browning MD [address] [place] [address] Consulting Physician General Surgery 03/22/21 Sarah Borges MD [address] [place] [address] Consulting Physician Endocrinology 03/22/21 documented as of this encounter
--- OUTSIDE RECORDS SUMMARY | 2024-09-21 04:18 | XMS_ITS | Encounter Summary ---
Author Organization [facility] Address [address] [place] [address] Phone Care Team Providers Care City Auditor Name Role Phone Cate Patel MD Primary Care Provider Liliya Ria MD Unavailable Encounter Details Date Type Department Care Team (Latest Contact Info) Description 11/27/2020 Transcribe Orders [facility] Sleep Lab [address] [place] [address] Cate Patel MD [address] [place] [address] Obstructive sleep apnea (Primary Dx); MARY on CPAP Social History Tobacco Use Types Packs/Day Years Used Date Smoking Tobacco: Never Smokeless Tobacco: Never Alcohol Use Standard Drinks/Week Comments No 0 (1 standard drink = 0.6 oz pur e alcohol) PHQ-2 Answer Date Recorded PHQ-2 Score 0 06/07/2019 Comments No Sex and Gender Information Value Date Recorded Sex Assigned at Not on file Legal Sex Female 12:34 AM CDT Gender Identity Not on file Sexual Orientation Not on file COVID-19 Exposure Response Date Recorded In the last month, have you been in contact with someone who was confirmed or suspected to have Coronavirus / COVID-19? No / Unsure 11/27/2020 11:02 AM SPECIAL EFFECTS PERSON documented as of this encounter Plan of Treatment Not on file documented as of this encounter Results * SPLIT NIGHT PSG (12/14/2020) us Cate Patel MD SLEEP CENTER ORDERABLES Alysia l Result documented in this encounter Visit Diagnoses Diagnosis Obstructive sleep apnea- Primary Obstructive sleep apnea (adult) (pediatric) MARY on CPAP Obstructive sleep apnea (adult) (pediatric) documented in this encounter Additional Health Concerns Assessment Noted Time PHQ-9 Depression Total Score: 0 08/30/20 19 3:00 PM SPECIAL EFFECTS PERSON documented as of this encounter Care Teams City Auditor Relationship Specialty Start Date End Date Cate Patel MD PCP - General Family Medicine 07/25/15 12/10/20 Liliya Rai MD [address] [phone] Consulting Physician Endocrinology 10/24/20 documented as of this encounter
--- OUTSIDE RECORDS SUMMARY | 2024-09-21 04:18 | XMS_ITS | Encounter Summary ---
Author Organization [facility] Address [address] [place] [address] Phone Care Team Providers Care Front Desk Monitor Name Role Phone Liliya Rai MD Unavailable Cate Patel MD Primary Care Provider [phone] Reason for Visit * Reason Comments Follow-up Encounter Details Date Type Department Care Team (Late st Contact Info) Description 12/21/2020 1:00 PM CDT Office Visit [facility] [address] [place] [phone] Pepe Anthony MD [address] [place] [address] Iron deficiency anemia due to chronic blood loss (Primary Dx); CKD (chronic kidney disease) stage [...] have Coronavirus / COVID-19? No / Unsure 12/21/2020 1:10 PM CDT documented as of this encounter Last Filed Vital Signs Vital Sign Reading Time Taken Comments Blood Pressure 128/63 12/21/2020 1:23 PM CDT man ual Pulse 90 12/21/2020 1:23 PM CDT Temperature 36.7 ??C (98.1 ??F) 12/21/2020 1:23 PM CD T Respiratory Rate 18 12/21/2020 1:23 PM CDT Oxygen Saturation 99% 12/21/2020 1:23 PM CDT Inhaled Oxygen Concentration - - Weight 101.5 kg (223 lb 11.2 oz) 12/21/2020 1:23 PM CDT Height 157.5 cm (5' 2 ) 12/21/2020 1:23 PM CDT Body Mass Index 40.92 12/21/2020 1:23 PM CDT documented in this encounter Progress Notes * Jannet Singh - 12/21/2020 1:00 PM CDT Outpatient Hem/Onc Progress Note PROGRESS NOTE Silvia Boss is a very pleasant 75 y.o. female seen today for follow up of iron deficiency anemia. Patient has been seen in this office for chronic anemia secondary to iron deficiency plus component of chronic kidney disease. She reports feeling additional fatigue in the last week. She is still trying to be active, swimming daily. Tracey reports that she fell recently and twisted her left ankleand bruised her left upper arm. She reports that she was unable to ambulate for a few days due to the pain and swelling in the ankle. She was seen at [facility] on 11/27/20 for the left arm bruising.She was prescribed Flexeril 10 mg TID. She reports that she takes one prior to going to the gym dueto left shoulder and arm stiffness. She denies the muscle relaxer being the cause of the fatigue. Stating she has been on the muscle relaxer's for almost 1 month. She reports that her son recently left to go to another job location. He was staying with her during an assignment in [place]. Tracey had a repeat sleep study done on 12/13/20 at [facility]. From the report it appears her MAYR is undercontrol. She is experiencing PLMD, iron deficiency appears to NOT be the cause of this given her iron panel shows elevated levels. Tracey currently takes Vitamin D3 2000 IU. Her last EGD was on 06/26/18 her last colonoscopy was on 12/06/[address] Catherine. DIAGNOSIS/TREATMENT HISTORY: Reviewed patients past medical, surgical, social, and family history. Outpatient Medications Marked as Taking for the 12/21/20 encounter (Office Visit) with Pepe Anthony MD Medication Sig Dispense Refill ??? amoxicillin (AMOXIL) 500 MG Capsule TAKE FOUR CAPSULES BY MOUTH ONE HOUR BEFORE APPOINTMENT ??? Aspirin 81 MG Tablet Take 81 mg by mouth daily. ??? Calcium Carbonate-Vitamin D (CALCIUM 500 + D PO) Take 1 Tab by mouth daily. ??? Cholecalciferol (VITAMIN D3) 1000 UNIT Tablet Take 1,000 Units by mouth daily. ??? cyclobenzaprine (FLEXERIL) 10 MG Tablet Take 1 Tablet by mouth 3 times daily as needed for Muscle spasms for up to 30 days. 90 Tablet 0 ??? dilTIAZem (Cartia XT) 240 MG CAPSULE SR 24 HR Take 1 Cap by mouth daily. 90 Cap 1 ??? levothyroxine (SYNTHROID) 75 MCG Tablet Take 1 Tab by mouth daily. 90 Tab 1 ??? lisinopril-hydroCHLOROthiazide (PRINZIDE, ZESTORETIC) 20-25 MG Tablet Take 1 Tab by mouth daily. 90 Tab 1 ??? Loperamide HCl (IMODIUM A-D) 2 MG Tablet Take 1 Tab by mouth daily as needed. ??? Melatonin 5 MG Capsule Take 5 mg by mouth nightly. ??? omeprazole (PriLOSEC) 40 MG CAPSULE DELAYED RELEASE Take 1 Cap by mouth daily. 90 Cap 1 ??? Topiramate 50 MG Tablet Take 1 Tablet by mouth 2 times daily. 60 Tablet 2 ??? Zinc Sulfate (ZINCATE PO) Take 1 Tab by mouth daily. Allergies as of 12/21/2020 ??? (No Known Allergies) REVIEW OF SYSTEMS Review of Systems Constitutional: Positive for malaise/fatigue and weight loss (intentional weight loss, diet and exercise related). Negative for diaphoresis. Respiratory: Negative for cough and shortness of breath. Gastrointestinal: Negative for blood in stool and melena. Musculoskeletal: Positive for joint pain and myalgias. Related to need for revision of shoulder surgery All other systems reviewed and are negative. Physical Exam Physical Exam PAIN ASSESSMENT: Tracey complains of bilateral shoulder and arm pain, rating it 5/10. DATA: Lab Results Component Value Date WBC 12.43 (H) 12/11/2020 RBC 3.74 (L) 12/11/2020 HEMOGLOBIN 11.8 (L) 12/11/2020 HEMATOCRIT 37.7 12/11/2020 MCV 100.8 (H) 12/11/2020 MCH 31.6 12/11/2020 MCHC 31.3 12/11/2020 PLATELETCNT 279 12/11/2020 RDW 12.7 12/11/2020 LYMPHOCYTES 6.4 (L) 12/11/2020 RELEOS 0.2 12/11/2020 RELBAS 0.4 12/11/2020 ANC 10.55 (H) 12/11/2020 MONOCYTES 1.00 12/11/2020 EOSINOPHILS 0.03 12/11/2020 BASOPHILS 0.05 12/11/2020 Lab Results Component Value Date SODIUM 137 12/11/2020 POTASSIUM 4.4 12/11/2020 CHLORIDE 102 12/11/2020 ANIONGAP 17.4 12/11/2020 GLUCOSE 96 12/11/2020 BUN 49 (H) 12/11/2020 CREATININE 1.29 (H) 12/11/2020 TOTALPROTEIN 7.6 12/11/2020 ALBUMIN 4.8 12/11/2020 CALCIUM 9.7 12/11/2020 SGPTALT 13 12/11/2020 ALKALINEPHO 78 12/11/2020 DIAGNOSTIC IMAGING STUDIES: POLI SCREENING B/L 04/20/2020: BI-RADS: 2 Benign Assessment: 1. Iron deficiency. Recurrent 2. Mild chronic Anemia, multifactorial etiology including chronic kidney disease. Bone marrow bx Nov 2018 unremarkable 3. Hiatal hernia. 4. Pituitary tumor with headache. 5. Hiatal hernia Plan: 1. Reviewed above clinical data including recent clinical symptoms as well as lab results. Iron deficiency has improved with Injectafer 750 mg x 3 infusions. Her hemoglobin levels remained stable. She has malabsorption secondary to chronic kidney disease. Recheck CBC and iron panel in 6 months. 2. I discussed with patient about her risk of recurrent iron deficiency due to hiatal hernia and chronic kidney disease associated functional iron deficiency and compromised iron absorption and utilization. She has had chronic anemia which is multifactorial. 3. I advised patient to follow up with GI for hiatal hernia as well as follow-up EGDs and colonoscopy. 4. Continue the good work on eating a healthy balanced diet and exercising daily. She has done suchan amazing job loosing weight, she should continue the hard work. ?? Follow up in 6 months with CBC/IRON PANEL The patient was given an opportunity to ask questions, and all questions answered to patient's satisfaction. Patient verbalizes understanding of the plan as outlined above. The documentation for this visit was completed by Jannet Singh acting as a scribe for Pepe Bautista MD. 12/21/2020, 1:29 PM CDT * Pepe Anthony MD - 12/21/2020 1:00 PM CDT Outpatient Hem/Onc Progress Note PROGRESS NOTE Silvia Boss is a very pleasant 75 y.o. female seen today for follow up of iron deficiency anemia. Patient has been seen in this office for chronic anemia secondary to iron deficiency plus component of chronic kidney disease. She reports feeling additional fatigue in the last week. She is still trying to be active, swimming daily. Tracey reports that she fell recently and twisted her left ankleand bruised her left upper arm. She reports that she was unable to ambulate for a few days due to the pain and swelling in the ankle. She was seen at [facility] on 11/27/20 for the left arm bruising.She was prescribed Flexeril 10 mg TID. She reports that she takes one prior to going to the gym dueto left shoulder and arm stiffness. She denies the muscle relaxer being the cause of the fatigue. Stating she has been on the muscle relaxer's for almost 1 month. She reports that her son recently left to go to another job location. He was staying with her during an assignment in [place]. Tracey had a repeat sleep study done on 12/13/20 at [facility]. From the report it appears her MARY is undercontrol. She is experiencing PLMD, iron deficiency appears to NOT be the cause of this given her iron panel shows elevated levels. Tracey currently takes Vitamin D3 2000 IU. Her last EGD was on 06/26/18 her last colonoscopy was on 12/06/[address] Catherine. DIAGNOSIS/TREATMENT HISTORY: Reviewed patients past medical, surgical, social, and family history. Outpatient Medications Marked as Taking for the 12/21/20 encounter (Office Visit) with Pepe Anthony MD Medication Sig Dispense Refill ??? Aspirin 81 MG Tablet Take 81 mg by mouth daily. ??? Calcium Carbonate-Vitamin D (CALCIUM 500 + D PO) Take 1 Tab by mouth daily. ??? Cholecalciferol (VITAMIN D3) 1000 UNIT Tablet Take 1,000 Units by mouth daily. ??? [] cyclobenzaprine (FLEXERIL) 10 MG Tablet Take 1 Tablet by mouth 3 times daily as needed for Muscle spasms for up to 30 days. 90 Tablet 0 ??? [DISCONTINUED] dilTIAZem (Cartia XT) 240 MG CAPSULE SR 24 HR Take 1 Cap by mouth daily. 90 Cap 1 ??? [DISCONTINUED] levothyroxine (SYNTHROID) 75 MCG Tablet Take 1 Tab by mouth daily. 90 Tab 1 ??? [DISCONTINUED] lisinopril-hydroCHLOROthiazide (PRINZIDE, ZESTORETIC) 20-25 MG Tablet Take 1 Tabby mouth daily. 90 Tab 1 ??? Loperamide HCl (IMODIUM A-D) 2 MG Tablet Take 1 Tab by mouth daily as needed. ??? Melatonin 5 MG Capsule Take 5 mg by mouth nightly. ??? omeprazole (PriLOSEC) 40 MG CAPSULE DELAYED RELEASE Take 1 Cap by mouth daily. 90 Cap 1 ??? Topiramate 50 MG Tablet Take 1 Tablet by mouth 2 times daily. 60 Tablet 2 ??? Zinc Sulfate (ZINCATE PO) Take 1 Tab by mouth daily. Allergies as of 12/21/2020 ??? (No Known Allergies) REVIEW OF SYSTEMS Review of Systems Constitutional: Positive for malaise/fatigue and weight loss (intentional weight loss, diet and exercise related). Negative for diaphoresis. Respiratory: Negative for cough and shortness of breath. Gastrointestinal: Negative for blood in stool and melena. Musculoskeletal: Positive for joint pain and myalgias. Related to need for revision of shoulder surgery All other systems reviewed and are negative. Physical Exam Physical Exam PAIN ASSESSMENT: Tracey complains of bilateral shoulder and arm pain, rating it 5/10. DATA: Lab Results Component Value Date WBC 12.43 (H) 12/11/2020 RBC 3.74 (L) 12/11/2020 HEMOGLOBIN 11.8 (L) 12/11/2020 HEMATOCRIT 37.7 12/11/2020 MCV 100.8 (H) 12/11/2020 MCH 31.6 12/11/2020 MCHC 31.3 12/11/2020 PLATELETCNT 279 12/11/2020 RDW 12.7 12/11/2020 LYMPHOCYTES 6.4 (L) 12/11/2020 RELEOS 0.2 12/11/2020 RELBAS 0.4 12/11/2020 ANC 10.55 (H) 12/11/2020 MONOCYTES 1.00 12/11/2020 EOSINOPHILS 0.03 12/11/2020 BASOPHILS 0.05 12/11/2020 Lab Results Component Value Date SODIUM 137 12/11/2020 POTASSIUM 4.4 12/11/2020 CHLORIDE 102 12/11/2020 ANIONGAP 17.4 12/11/2020 GLUCOSE 96 12/11/2020 BUN 49 (H) 12/11/2020 CREATININE 1.29 (H) 12/11/2020 TOTALPROTEIN 7.6 12/11/2020 ALBUMIN 4.8 12/11/2020 CALCIUM 9.7 12/11/2020 SGPTALT 13 12/11/2020 ALKALINEPHO 78 12/11/2020 DIAGNOSTIC IMAGING STUDIES: POLI SCREENING B/L 04/20/2020: BI-RADS: 2 Benign Assessment: 1. Iron deficiency. Recurrent 2. Mild chronic Anemia, multifactorial etiology including chronic kidney disease. Bone marrow bx Nov 2018 unremarkable 3. Hiatal hernia. 4. Pituitary tumor with headache. 5. Hiatal hernia Plan: 1. Reviewed above clinical data including recent clinical symptoms as well as lab results. Iron deficiency has improved with Injectafer 750 mg x 3 infusions. Her hemoglobin levels remained stable. She has H/O iron malabsorption secondary to chronic kidney disease. Recheck CBC and iron panel in 6 months. 2. I discussed with patient about her risk of recurrent iron deficiency due to hiatal hernia and chronic kidney disease associated functional iron deficiency and compromised iron absorption and utilization. She has had chronic anemia which is multifactorial. 3. I advised patient to follow up with GI for hiatal hernia as well as follow-up EGDs and colonoscopy. 4. Continue the good work on eating a healthy balanced diet and exercising daily. She has done suchan amazing job loosing weight, she should continue the hard work. ?? Follow up in 6 months with CBC/IRON PANEL The patient was given an opportunity to ask questions, and all questions answered to patient's satisfaction. Patient verbalizes understanding of the plan as outlined above. The documentation for this visit was completed by Jannet Singh acting as a scribe for Pepe Bautista MD. The documentation recorded by the scribe was completed while in the exam room with me and the patient.?? The documentation accurately reflects the service I personally performed and the decisions made by me. I have confirmed and edited the documentation as necessary. Pepe Anthony MD documented in this encounter Miscellaneous Notes * Interdisciplinary - Ev Ocampo - 12/21/2020 1:00 PM CDT The patient has complaints of bilateral shoulder and arm pain. Pain score is 5/10. documented in this encounter Plan of Treatment Not on file documented as of this encounter Results * IRON W/IRON BINDING CAPACITY (06/18/2021 10:54 AM CDT) IRON 62.32 37 - 145 mcg/dL 06/18/2021 12:54 PM CDT [facility] % SATURATION * 23 20 - 55 % 06/18/2021 12:54 PM CDT [facility] UIBC 210 112 - 346 mcg/dL 06/18/2021 12:54 PM CDT [facility] TIBC CALC 272 149 - 491 mcg/dL 06/18/2021 12:54 PM CDT [facility] Blood Venipuncture / Unknown 06/18/2021 10:54 AM CDT 06/18/2021 11:33 AM CDT Pepe Anthony MD CHEMISTRY ORDERABLES Fin al Result Performing Organization Address City/[facility]/ZIP Co de Phone Number [facility] [address] [place] [address] * (ABNORMAL) FERRITIN (06/18/2021 10:54 AM CDT) Pathologist [facility] FERRITIN 509(H) 13 - 150 ng/mL 06/18/2021 12:54 PM CDT [facility] Blood Venipuncture / Unknown 06/18/2021 10:54 AM CDT 06/18/2021 11:33 AM CDT Pepe Anthony MD CHEMISTRY ORDERABLES Fin al Result Performing Organization Address [facility] de Phone Number [facility] [address] [place] [address] * (ABNORMAL) CMP (COMPREHENSIVE METABOLIC PANEL) (06/18/2021 10:54 AM CDT) Pathologist [facility] SODIUM 135(L) 136 - 144 mmol/L 06/18/2021 12:54 PM CDT [facility] POTASSIUM 4.0 3.5 - 5.1 mmol/L 06/18/2021 12:54 PM CDT [facility] CHLORIDE 102 100 - 110 mmol/L 06/18/2021 12:54 PM CDT [facility] CO2, VENOUS 20(L) 22 - 32 mmol/L 06/18/2021 12:54 PM CDT [facility] ANION GAP 17.0 8.0 - 20.0 mmol/L 06/18/2021 12:54 PM [facility] GLUCOSE 102(H) 70 - 99 mg/dL 06/18/2021 12:54 PM T [facility] BUN 29(H) 8 - 23 mg/dL 06/18/2021 12:54 PM [facility] CREATININE, BLOOD 1.24(H) 0.60 - 1.10 mg/dL 06/18/2021 12:54 PM [facility] BUN/CREATININE RATIO 23(H) 12 - 20 ratio 06/18/2021 12:54 PM [facility] TOTAL PROTEIN 7.1 6.0 - 8.3 g/dL 06/18/2021 12:54 PM [facility] ALBUMIN 4.5 3.5 - 5.2 g/dL 06/18/2021 12:54 PM [facility] Comment: The colormetric methods used for the determination of Albumin may lead to falsely elevated test results in patients suffering from renal failure or insufficiency due to interference with other proteins. A/G RATIO 1.7 1.0 - 2.0 06/18/2021 12:54 PM [facility] CALCIUM 9.3 8.9 - 10.3 mg/dL 06/18/2021 12:54 PM [facility] T BILI 0.3 <=1.2 mg/dL 06/18/2021 12:54 PM [facility] SGOT (AST) 11 <=32 U/L 06/18/2021 12:54 PM [facility] SGPT (ALT) 7 <=41 U/L 06/18/2021 12:54 PM [facility] ALKALINE PHOSPHATASE 68 35 - 105 U/L 06/18/2021 12:54 PM [facility] GFR, EST. NONAFRICAN 42(L) >=60 06/18/2021 12:54 PM T [facility] GFR, EST. 51(L) >=60 021 12:54 PM CDT [facility] Comment: Creatinine Clearance is the preferred criteria for selecting drug dose adjustments in renally impaired patients. ??The GFR is provided as additional pertinent clinical information. GFR is reported in mL/min/1.73 sq m. IS THE PATIENT REQUIRED TO BE FASTING? No 06/18/2021 12:54 PM CDT [facility] Blood Venipuncture / Unknown 06/18/2021 10:54 AM CDT 06/18/2021 11:33 AM CDT us Pepe Anthony MD CHEMISTRY ORDERABLES Fin al Result [facility] [address] [place] [address] documented in this encounter Visit Diagnoses Diagnosis Iron deficiency anemia due to chronic blood loss- Primary Iron deficiency anemia secondary to blood loss (chronic) CKD (chronic kidney disease) stage 1, GFR 90 ml/min or greater Chronic kidney disease, Stage I documented in this encounter Additional Health Concerns Assessment Noted Time PHQ-9 Depression Total Score: 0 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
--- OUTSIDE RECORDS SUMMARY | 2024-09-21 04:18 | XMS_ITS | Encounter Summary ---
Author Organization [employer] Care Team Providers Care Adventure Guide Name Role Phone Liliya Rai MD Unavailable Cate Patel MD Primary Care Provider [phone] Encounter Details Date Type Department Care Team (Latest Contact Info) Description 02/22/2021 Travel Social History Tobacco Use Types Packs/Day [...] have Coronavirus / COVID-19? 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
--- OUTSIDE RECORDS SUMMARY | 2024-09-21 04:18 | XMS_ITS | Encounter Summary ---
Author Organization [facility] Address [address] [place] [address] Phone Care Team Providers Care Pocketbook Maker Name Role Phone Liliya Rai MD Unavailable Cate Patel MD Primary Care Provider [phone] Vadim Browning MD Unavailable Unavailable Sarah Borges MD Unavailable [phone] Reason for Visit * Reason Onset Date Comments Results 07/19/2021 Dexa Follow-up 07/19/2021 Encounter Details Date Type Department Care Team (Late st Contact Info) Description 07/19/2021 Telephone [facility] - Primary Care - Saroj [address] [place] [address] Cate Patel MD [address] [place] [address] Results (Dexa); Follow-up Social History Tobacco Use Types Packs/Day Years [...] encounter Miscellaneous Notes * Telephone Encounter - Ni Boss RN - 07/19/2021 11:30 AM CDT Patient notified of results and provider recommendations; verbalized understanding States MyChart is active * Telephone Encounter - Evonne Altamirano RN - 07/19/2021 9:24 AM CDT LVM to give pt results and PCP instructions. * Telephone Encounter - Evonne Altamirano RN - 07/19/2021 9:24 AM CDT ----- Message from Chrissy Torres sent at 07/19/2021 8:52 AM CDT ----- ----- Message ----- From: Cate Patel MD Sent: 07/18/2021 9:47 PM CDT To: [facility] Please inform, Dexa shows osteopenia or low bone mass. Start Calcium 1200 mg/day + Vitamin D3 1000 units per day and Aerobic exercise. 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
--- OUTSIDE RECORDS SUMMARY | 2024-09-21 04:18 | XMS_ITS | Encounter Summary ---
Author Organization [facility] Address [address] [place] [address] Phone Care Team Providers Care Meteorologist In Charge Name Role Phone Liliya Rai MD Unavailable Cate Patel MD Primary Care Provider [phone] Vadim Browning MD Unavailable Unavailable Sarah Borges MD Unavailable [phone] Reason for Visit * Reason Comments New Patient Heartburn Blocked Esophagus * Consult, Test & Initiate Treatment (Less Than 2 Weeks) - Closed Specialty Diagnoses / Procedures Referred By Contac t Referred To Contact Gastroenterology Diagnoses Gastroesophageal reflux disease without esophagitis Cate Patel MD [address] [place] [address] Phone: tel: fax: [facility] - Gastroenterology [facility] [address] [place] [address] Phone: tel: fax: Referral ID Status Reason Start Date Expiration Date Visits Re quested Visits Authorized [id number] Closed 03/01/2021 1 1 Encounter Details Date Type Department Care Team (Latest Contact Info) Description 03/22/2021 9:20 AM CDT Office Visit [facility] - Gastroenterology [facility] [address] [place] [address] Alee Ortiz PAC [address] [place] [address] Globus syndrome (Primary Dx); Gastroesophageal reflux disease without esophagitis; Esophageal dysmotility Discharge Disposition: Discharged to home or Selfcare [...] have Coronavirus / COVID-19? No / Unsure 03/22/2021 8:56 AM CDT documented as of this encounter Last Filed Vital Signs Vital Sign Reading Time Taken Comments Blood Pressure 128/64 03/22/2021 9:04 AM CDT Pulse 83 03/22/2021 9:04 AM CDT Temperature 36.7 ??C (98 ??F) 03/22/2021 9:04 AM CDT Respiratory Rate 20 03/22/2021 9:04 AM CDT Oxygen Saturation 98% 03/22/2021 9:04 AM CDT Inhaled Oxygen Concentration - - Weight 98 kg (216 lb) 03/22/2021 9:04 AM CDT Height 157.5 cm (5' 2 ) 03/22/2021 9:04 AM CDT Body Mass Index 39.51 03/22/2021 9:04 AM CDT documented in this encounter Patient Instructions * Patient Instructions* Alee Ortiz PAC - 03/22/2021 9:20 AM CDT Continue current therapy Avoid eating 1-2 hours prior to bed May need to elevate head of bed approximately 45??. Avoid frequent/chronic use of NSAIDs such as ibuprofen/naproxen May use acetaminophen/ Tylenol arthritis as needed. Avoid fried/ greasy/ spicy foods/ red sauces/ citrus especially in the evening Reduce caffeine/ carbonated beverages/alcohol/tobacco Await EGD If you had lab work ordered at this visit, we will contact you regarding the results once all results have been received and reviewed. You may be able to see results in your my chart as they come in, please remember the computer is only given parameters for what is ???normal?? or ???abnormal?? .The significance of anything in the ???abnormal?? range is based on the remaining test results. Aga in we will contact you when we have received and reviewed all the results. Please arrive 15 minutes prior to all appointments Please schedule follow-up in near future to discuss any concerns that were not addressed fully at today's office visit. To continue to provide excellent patient care, you may receive a survey regarding your visit today.To help us serve you better, please complete and return. These surveys are completely anonymous. If you have any concerns/ questions regarding today's visit please call. documented in this encounter Progress Notes * Alee Ortiz PAC - 03/22/2021 9:20 AM CDT PROBLEM LIST: Silvia Boss is a . 75 y.o. female who presents with Chief Complaint Patient presents with ??? New Patient ??? Heartburn ??? Blocked Esophagus . DIAGNOSIS, PLAN AND FOLLOW UP: Diagnoses and all orders for this visit: Globus syndrome - GASTRO PROCEDURE; Future Gastroesophageal reflux disease without esophagitis - GASTROENTEROLOGY REFERRAL - GASTRO PROCEDURE; Future S: Referred by PCP for evaluation feeling of something in throat- EGD prior- stretched esophagus and saw some nodules . At that time she had been choking, currently reports has not had any choking episodes. Normal appetite. Denies early satiety. Some reflux/heartburn. Denies nausea/ vomiting/ abdominal pain/ constipation/ diarrhea/ mucus or blood in stools. Denies weight loss/ malaise/ fatigue. Denies sore throat/hoarseness/difficulty swallowing. Denies discoloration to eyes or skin. Denies chest pain/ pressure/ heaviness/ tightness. Denies cough/ sob/ wheezing. ALLERGIES: No Known Allergies MEDICATIONS: Current Outpatient [...] daily 90 Tablet 0 ??? Loperamide HCl (IMODIUM A-D) 2 MG [...] by mouth daily. 90 Cap 1 ??? simvastatin (ZOCOR) 5 MG Tablet Take 1 Tablet by mouth every evening. 90 Tablet 1 ??? Topiramate 50 MG Tablet Take 1 Tablet by mouth 2 times daily. 180 Tablet 1 ??? Zinc Sulfate (ZINCATE PO) Take 1 Tab by mouth daily. No current facility-administered medications for this visit. PMS/H: Past Medical History Positives Diagnosis Date ??? Autoimmune disease (HCC) DONNA ??? Bursitis Lt shoulder ??? Colon polyp ??? Depression ??? Diverticula of colon ??? DM (diabetes mellitus) (HCC) diet controlled ??? Dyslipidemia ??? Eczema ??? Esophageal dysmotility ??? Fe deficiency anemia ??? GERD (gastroesophageal reflux disease) ??? Donna's disease ??? Hypertension ??? Kidney stone 09/2016 Right ??? Low bone mass ??? Neuropathy, peripheral ??? OA (osteoarthritis) ??? 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 MARY (obstructive sleep apnea) cpap ??? Pancreatitis 2012 ??? Pituitary tumor ??? Sinusitis ??? Spinal stenosis ??? Status post epidural steroid injection right shoulder and right hip ??? Thyroid cancer (HCC) I 131 treatment ??? Vitamin D deficiency Past Surgical History: Procedure Laterality Date ??? CHOLECYSTECTOMY, LAPAROSCOPIC ??? HYSTERECTOMY, TOTAL ABDOMINAL ??? APPENDECTOMY ??? APPENDECTOMY ??? BLADDER SURGERY ??? BUNIONECTOMY Bilateral ??? CARPAL TUNNEL RELEASE Bilateral ??? CATARACT REMOVAL Bilateral 2016 ??? CHOLECYSTECTOMY ??? COLONOSCOPY 12/04/2013 ??? HAMMER TOE SURGERY Right ??? HIP ARTHROPLASTY Left THR ??? HUMERUS SURGERY Right ORIF ??? LAMINECTOMY Lumbar spine ??? LITHOTRIPSY Right 10/01/2016 Procedure: Extracorporeal Shock Wave Lithotripsy RIGHT-; Surgeon: Neeta Edwards MD; Location:[facility]; Service: ??? OVARY REMOVAL ??? LAKHWINDER AND BSO Fibroids ??? TOTAL KNEE ARTHROPLASTY Bilateral ??? UPPER GASTROINTESTINAL ENDOSCOPY N/A 10/27/2015 Procedure: EGDcol plus dilatation with 54fr. rajan; Surgeon: Talha Catherine DO; Location: [facility]; Service: ??? UPPER GASTROINTESTINAL ENDOSCOPY N/A 06/26/2018 Procedure: EGD: yee test, mild esophageal dysmotility, hiatal hernia, dilation 54 fr rajan; Surgeon: Talha Catherine DO; Location: [facility]; Service: Gastroenterology SOCIAL: Social history reviewed and updated as appropriate. FAMILY HX: Family History Problem Relation Age [...] Sister ??? Hypertension Sister VITAL SIGNS: Vitals: 03/22/21 0904 BP: 128/64 Pulse: 83 Resp: 20 Temp: 98 ??F (36.7 ??C) SpO2: 98% Weight: 216 lb (98 kg) Height: 5' 2 (1.575 m) GENERAL EXAM: GENERAL: Well developed, well nourished, in no acute distress. AAO x3. Cooperative. HEENT: Normocephalic. PERRLA. Nonicteric. NECK: Supple/ non tender/ full ROM LYMPH NODES: No adenopathy. CARDIOVASCULAR: RRR/ S1S2/ No m/g/c/r. PULMONARY: Respirations easy and regular. Breath sounds clear bilaterally. No rhonchi/ rales/ wheezes. GI: Abdomen soft, nondistended. No tenderness, rebound, guarding or masses. No hepatosplenomegaly.Bowel sounds normoactive. MUSCULOSKELETAL: No CVA tenderness. Full ROM all extremities. No tenderness/ swelling/ crepitus. SKIN: General-warm, pink and dry. No rashes/ lesions. PSYCHIATRIC: Euthymic. Affect congruent with mood. Normal thought process. Return if symptoms worsen or fail to improve. Medication changes/ treatment plan reviewed. Risks and benefits discussed. Expressed understanding. Patient Instructions Continue current therapy Avoid eating 1-2 hours prior to bed May need to elevate head of bed approximately 45??. Avoid frequent/chronic use of NSAIDs such as ibuprofen/naproxen May use acetaminophen/ Tylenol arthritis as needed. Avoid fried/ greasy/ spicy foods/ red sauces/ citrus especially in the evening Reduce caffeine/ carbonated beverages/alcohol/tobacco Await EGD If you had lab work ordered at this visit, we will contact you regarding the results once all results have been received and reviewed. You may be able to see results in your my chart as they come in, please remember the computer is only given parameters for what is ???normal?? or ???abnormal?? .The significance of anything in the ???abnormal?? range is based on the remaining test results. Aga in we will contact you when we have received and reviewed all the results. Please arrive 15 minutes prior to all appointments Please schedule follow-up in near future to discuss any concerns that were not addressed fully at today's office visit. To continue to provide excellent patient care, you may receive a survey regarding your visit today.To help us serve you better, please complete and return. These surveys are completely anonymous. If you have any concerns/ questions regarding today's visit please call. 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
--- OUTSIDE RECORDS SUMMARY | 2024-09-21 04:18 | XMS_ITS | Encounter Summary ---
Author Organization [facility] Address [address] [place] [address] Phone Care Team Providers Care Respiratory Therapy Technician Name Role Phone Liliya Rai MD Unavailable Cate Patel MD Primary Care Provider [phone] Reason for Visit * Reason Comments Medication Refill Encounter Details Date Type Department Care Team (Late st Contact Info) Description 01/11/2021 Refill [facility] [address] [place], [place] [id number] Cate Patel MD [address] [place] [address] Medication Refill Social History Tobacco [...] Telephone Encounter - Shoshana Burns RN - 01/12/2021 10:16 AM CDT Medication approved and signed per standing order protocol. 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
--- OUTSIDE RECORDS SUMMARY | 2024-09-21 04:18 | XMS_ITS | Encounter Summary ---
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
--- OUTSIDE RECORDS SUMMARY | 2024-09-21 04:18 | XMS_ITS | Encounter Summary ---
Author Organization [facility] Address [address] [place] [address] Phone Care Team Providers Care Heavy Rail Train Operator Name Role Phone Cate Patel MD Primary Care Provider [phone] Liliya Rai MD Unavailable Reason for Referral * Consult, Test & Initiate Treatment (Routine) - Closed Specialty Diagnoses / Procedures Referred By Yadiel adams Referred To Contact Sleep Center Diagnoses MARY on CPAP Cate Patel MD [address] [place] [address] Phone: tel: fax: [facility] [address] [place] [address] Phone: tel: fax: Referral ID Status Reason Start Date Expiration Date Visits Re quested Visits Authorized [id number] Closed 10/31/2020 1 1 Scheduling Instructions SLEEP STUDY BEING REQUESTED: [facility] Sleep Study Referral Scheduling Instructions: Split Night Silvia is being referred for MARY. If positive refer to Dr. Tripathi. See below for Silvia's current medications, allergies and problem list. Please contact patient for scheduling questions or concerns. CURRENT MEDS: Current Outpatient Medications: ? ? amoxicillin (AMOXIL) 500 MG Capsule, TAKE FOUR CAPSULES BY MOUTH ONE HOUR BEFORE APPOINTMENT, Disp: , Rfl: ? ? Aspirin 81 MG Tablet, Take 81 mg by mouth daily., Disp: , Rfl: ? ? Calcium Carbonate-Vitamin D (CALCIUM 500 + D PO), Take 1 Tab by mouth daily., Disp: , Rfl: ? ? Cholecalciferol (VITAMIN D3) 1000 UNIT Tablet, Take 1,000 Units by mouth daily., Disp: , Rfl: ? ? dilTIAZem (Cartia XT) 240 MG CAPSULE SR 24 HR, Take 1 Cap by mouth daily., Disp: 90 Cap, Rfl: 1 ? ? levothyroxine (SYNTHROID) 75 MCG Tablet, Take 1 Tab by mouth daily., Disp: 90 Tab, Rfl: 1 ? ? lisinopril-hydroCHLOROthiazide (PRINZIDE, ZESTORETIC) 20-25 MG Tablet, Take 1 Tab by mouth daily., Disp: 90 Tab, Rfl: 1 ? ? Loperamide HCl (IMODIUM A-D) 2 MG Tablet, Take 1 Tab by mouth daily as needed., Disp: , Rfl: ? ? Melatonin 5 MG Capsule, Take 5 mg by mouth nightly., Disp: , Rfl: ? ? omeprazole (PriLOSEC) 40 MG CAPSULE DELAYED RELEASE, Take 1 Cap by mouth daily., Disp: 90 Cap, Rfl: 1 ? ? Topiramate 50 MG Tablet, Take 1 Tab by mouth 2 times daily., Disp: 60 Tab, Rfl: 2 ? ? Zinc Sulfate (ZINCATE PO), Take 1 Tab by mouth daily., Disp: , Rfl: No current facility-administered medications for this visit. ALLERGIES: No Known Allergies PROBLEM LIST: Patient Active Problem List: HTN (hypertension) Depression MARY on CPAP Iron deficiency anemia due to chronic blood loss Hypothyroidism Gastroesophageal reflux disease Thyroid nodule Obesity, Class III, BMI 40-49.9 (morbid obesity) (HCC) Hyperlipidemia Spinal stenosis of lumbar region Osteoarthritis of multiple joints Hiatal hernia Chronic fatigue Migraine without aura and without status migrainosus, not intractable Anxiety disorder CKD (chronic kidney disease) stage 1, GFR 90 ml/min or greater Pituitary macroadenoma (HCC) IFG (impaired fasting glucose) TH INFORMATICS ADVISOR * Consult, Test & Initiate Treatment (Routine) - Closed Specialty Diagnoses / Procedures Referred By Conttylor t Referred To Contact Diagnoses Primary osteoarthritis involving multiple joints Cate Patel MD [address] [place] [address] Phone: tel: fax: Referral ID Status Reason Start Date Expiration Date Visits Re quested Visits Authorized [id number] Closed 10/31/2020 1 1 Scheduling Instructions Silvia is being referred to pain management - Dr. Douglass or other specialist in patient's insurance network for knee, hip and shoulder OA. See below for Silvia's current medications, allergies and problem list. CURRENT MEDS: Current Outpatient Medications: ? ? amoxicillin (AMOXIL) 500 MG Capsule, TAKE FOUR CAPSULES BY MOUTH ONE HOUR BEFORE APPOINTMENT, Disp: , Rfl: ? ? Aspirin 81 MG Tablet, Take 81 mg by mouth daily., Disp: , Rfl: ? ? Calcium Carbonate-Vitamin D (CALCIUM 500 + D PO), Take 1 Tab by mouth daily., Disp: , Rfl: ? ? Cholecalciferol (VITAMIN D3) 1000 UNIT Tablet, Take 1,000 Units by mouth daily., Disp: , Rfl: ? ? dilTIAZem (Cartia XT) 240 MG CAPSULE SR 24 HR, Take 1 Cap by mouth daily., Disp: 90 Cap, Rfl: 1 ? ? levothyroxine (SYNTHROID) 75 MCG Tablet, Take 1 Tab by mouth daily., Disp: 90 Tab, Rfl: 1 ? ? lisinopril-hydroCHLOROthiazide (PRINZIDE, ZESTORETIC) 20-25 MG Tablet, Take 1 Tab by mouth daily., Disp: 90 Tab, Rfl: 1 ? ? Loperamide HCl (IMODIUM A-D) 2 MG Tablet, Take 1 Tab by mouth daily as needed., Disp: , Rfl: ? ? Melatonin 5 MG Capsule, Take 5 mg by mouth nightly., Disp: , Rfl: ? ? omeprazole (PriLOSEC) 40 MG CAPSULE DELAYED RELEASE, Take 1 Cap by mouth daily., Disp: 90 Cap, Rfl: 1 ? ? Topiramate 50 MG Tablet, Take 1 Tab by mouth 2 times daily., Disp: 60 Tab, Rfl: 2 ? ? Zinc Sulfate (ZINCATE PO), Take 1 Tab by mouth daily., Disp: , Rfl: No current facility-administered medications for this visit. ALLERGIES: No Known Allergies PROBLEM LIST: Patient Active Problem List: HTN (hypertension) Depression Sleep apnea Iron deficiency anemia due to chronic blood loss Hypothyroidism Gastroesophageal reflux disease Thyroid nodule Obesity, Class III, BMI 40-49.9 (morbid obesity) (HCC) Hyperlipidemia Spinal stenosis of lumbar region Osteoarthritis of multiple joints Hiatal hernia Chronic fatigue Migraine without aura and without status migrainosus, not intractable Anxiety disorder CKD (chronic kidney disease) stage 1, GFR 90 ml/min or greater Pituitary macroadenoma (HCC) TH INFORMATICS ADVISOR Reason for Visit * Reason Comments Hypertension Encounter Details Date Type Department Care Team (Latest Contact Info) Description 10/31/2020 9:45 AM HEALTH INFORMATICS ADVISOR Office Visit [facility] Primary [facility] [address] [place] [address] Cate Patel MD [address] [place] [address] Migraine without aura and without status migrainosus, not intractable (Primary Dx); Obesity, Class III, BMI 40-49.9 (morbid obesity) (HCC); Essential hypertension; Hypothyroidism, unspecified type; Primary osteoarthritis involving multiple joints; IFG (impaired fasting glucose); MARY on CPAP Discharge Disposition: Discharged to home or Selfcare [...] have Coronavirus / COVID-19? No / Unsure 10/31/2020 9:26 AM HEALTH INFORMATICS ADVISOR documented as of this encounter Last Filed Vital Signs Vital Sign Reading Time Taken Comments Blood Pressure 124/70 10/31/2020 9:36 AM HEALTH INFORMATICS ADVISOR Pulse 81 10/31/2020 9:36 AM HEALTH INFORMATICS ADVISOR Temperature 36.2 ??C (97.2 ??F) 10/31/2020 9:36 AM CS T Respiratory Rate 20 10/31/2020 9:36 AM HEALTH INFORMATICS ADVISOR Oxygen Saturation 97% 10/31/2020 9:36 AM HEALTH INFORMATICS ADVISOR Inhaled Oxygen Concentration - - Weight 106.1 kg (234 lb) 10/31/2020 9:36 AM HEALTH INFORMATICS ADVISOR Height 157.5 cm (5' 2 ) 10/31/2020 9:36 AM HEALTH INFORMATICS ADVISOR Body Mass Index 42.8 10/31/2020 9:36 AM HEALTH INFORMATICS ADVISOR documented in this encounter Progress Notes * Dae Contreras, LYLA - 10/31/2020 9:45 AM CST Silvia Pennington Gera, 75 y.o., female is here for Hypertension Medication Refills: Patient reports/denies need for medication refills. Orders Pended: no Requested Prescriptions No prescriptions requested or ordered in this encounter Home Medications Medication Sig Start Date End Date Taking? Authorizing Provider amoxicillin (AMOXIL) 500 MG Capsule TAKE FOUR CAPSULES BY MOUTH ONE HOUR BEFORE APPOINTMENT 10/16/20ProviDevin ceja MD Aspirin 81 MG Tablet Take 81 mg by mouth daily. Devin Singh MD Calcium Carbonate-Vitamin D (CALCIUM 500 + D PO) Take 1 Tab by mouth daily. Devin Singh MD Cholecalciferol (VITAMIN D3) 1000 UNIT Tablet Take 1,000 Units by mouth daily. Devin Singh MD dilTIAZem (Cartia XT) 240 MG CAPSULE SR 24 HR Take 1 Cap by mouth daily. 07/20/20 Cate Patel MD levothyroxine (SYNTHROID) 75 MCG Tablet Take 1 Tab by mouth daily. 07/20/20 Cate Patel MD lisinopril-hydroCHLOROthiazide (PRINZIDE, ZESTORETIC) 20-25 MG Tablet Take 1 Tab by mouth daily. 07/20/20 Cate Patel MD Loperamide HCl (IMODIUM A-D) 2 MG Tablet Take 1 Tab by mouth daily as needed. Devin Singh MD Melatonin 5 MG Capsule Take 5 mg by mouth nightly. Devin Singh MD omeprazole (PriLOSEC) 40 MG CAPSULE DELAYED RELEASE Take 1 Cap by mouth daily. 07/20/20 Cate Patel MD Topiramate 50 MG Tablet Take 1 Tab by mouth 2 times daily. 07/20/20 Cate Patel MD Zinc Sulfate (ZINCATE PO) Take 1 Tab by mouth daily. Provider, MD Devin There are no discontinued medications. I have reviewed the home medication list with the patient and have reconciled discrepancies. The list is accurate to the best of my knowledge. Smoking Status: Social History Tobacco Use ??? Smoking status: Never Smoker ??? Smokeless tobacco: Never Used Substance Use Topics ??? Alcohol use: No Alcohol/week: 0.0 oz ??? Drug use: No Smoking Cessation Counseling Given: n/a Health Care Maintenance: Health Maintenance Due Topic Date Due ??? SARS-COV-2 Immunization (1 of 2) 1961 ??? Zoster Immunization (2 of 3) 01/29/2013 Orders Pended: n/a The following BPA's have been addressed with the patient today: N/A TH INFORMATICS ADVISOR * Cate Patel MD - 10/31/2020 9:45 AM CST Subjective Chief Complaint Patient presents with ??? Hypertension History of Present Illness Silvia presents here for a followup visit. Her BP is well controlled today at 124/70 mmHg. She continues to take diltiazem and lisinopril/hydrochlorothiazide without any problems. At her last visit, on 07/20/2020, I started her on topiramate to help with her migraine headaches and also to help lose weight. She has lost about 16 pounds, and she says her headaches are under excellent control, so she wants to continue the topiramate. She is also known to have microadenoma. She sees paint preparer, Dr. Rai and Dr. Borges. She reports having multiple joint pains, especially in her knees, shoulders, and hips. She wants tosee pain specialist, Dr. Jaime, whom she has seen in the past. Referral has been placed. She reports having obstructive sleep apnea, for which she has been using a CPAP for about 12 years,and her CPAP she broke 6 months ago. She wants a new CPAP machine. She does not know the setting. She would like to have a new sleep study and then see if she needs it. Her recent labs, done on 10/23/2020, were reviewed with her. Thyroid functions are normal. Her lipid panel shows elevated total cholesterol of 210, LDL is at goal at 108. FBS was 124, which is impaired. Low-carb, low-sugar diet recommended. Creatinine is 1.31 with an EGFR of 40. I will continue to monitor. LFTs are normal. CBC looks good, hemoglobin was 11.7. IJN: [id number] ROS: RESPIRATORY: Patient denies shortness of breath, chronic cough or other respiratory problems. CARDIAC: Patient denies chest pain, chest pressure, palpitations, diaphoresis, chest pain radiating into arms or neck. PMH/PSH/FH/SH/medications/allergies/health maintenance entries were reviewed with patient and updated. Objective: Physical Exam Vitals: 10/31/20 0936 BP: 124/70 Pulse: 81 Resp: 20 Temp: 97.2 ??F (36.2 ??C) SpO2: 97% Weight: 234 lb (106.1 kg) Height: 5' 2 (1.575 m) Body mass index is 42.8 kg/m??. Constitutional: She appears well-developed and well-nourished. No distress. HENT: Head: Atraumatic, normocephalic. Cardiovascular: Normal rate, regular rhythm, normal heart sounds and intact distal pulses. No murmur/rubs/gallops heard. Pulmonary/Chest: clear to auscultation bilaterally, no crepts or wheezes. Musculoskeletal/extremities: no pedal edema, no calf tenderness. Skin: Skin is warm and dry. Assessment and Plan Silvia Boss presents here for Hypertension 1. Migraine without aura and without status migrainosus, not intractable - well controlled with topiramate 50 mg b.i.d.. Continue.?Secondary to pituitary microadenoma. 2. Obesity, Class III, BMI 40-49.9 (morbid obesity) (HCC) - lost 16 lb since topiramate was started on 07/20/2020. Continue. 3. Essential hypertension - continue diltiazem 240 mg q.d. and lisinopril/HCTZ 20/25 mg q.d.. 4. Hypothyroidism, unspecified type - continue levothyroxine 75 mcg q.d.. 5. Primary osteoarthritis involving multiple joints - wants to see Dr. Antony a pain specialist. - EXTERNAL PAIN REFERRAL; Future 6. IFG (impaired fasting glucose) - Advised Low carb diet, low concentrated sweets, exercise and weight loss. 7. MARY on CPAP - last sleep study done 12 years ago. CPAP broke 6 months ago. Needs new CPAP. - SLEEP STUDY REFERRAL; Future Followup: Return in about 4 months (around 02/28/2021).with labs done 1 week prior to next appointment. The patient understood the plan, questions were answered and AVS including the updated medication list was provided to the patient. Documentation for this visit on 10/31/20 was completed using a template. I have seen and examined the patient. Everything documented was personally performed at this visit with the necessary additions, deletions and changes made as appropriate. This note was dictated using [employer] fluency dictation system and there may be errors in underground miner. Despite proof reading the note, there may be mistakes and I apologize for those. Cate Patel MD TH INFORMATICS ADVISOR TH INFORMATICS ADVISOR documented in this encounter Plan of Treatment Scheduled Referrals Name Type Priority Associated Diagnoses Orde r Schedule SLEEP STUDY REFERRAL Outpatient Referral Routine MARY on CPAP Expected: 10/31/2020, Expires: 12/29/2020 documented as of this encounter Results * THYROID STIMULATING HORMONE (TSH) (02/22/2021 9:05 AM CDT) TSH 1.180 0.270 - 4.200 mIU/L 02/22/2021 1:57 PM CDT [facility] Blood Venipuncture / Unknown 02/22/2021 9:05 AM CDT 02/22/2021 9:05 AM CDT us Cate Patel MD CHEMISTRY ORDERABLES Final R esult Performing Organization Address City/[facility]/ZIP Co de Phone Number [facility] [address] [place] [address] * THYROXINE (T4) FREE (02/22/2021 9:05 AM CDT) T4 FREE 1.6 0.9 - 1.7 ng/dL 02/22/2021 1:57 PM CDT [facility] Blood Venipuncture / Unknown 02/22/2021 9:05 AM CDT 02/22/2021 9:05 AM CDT us Cate Patel MD CHEMISTRY ORDERABLES Final R esult Performing Organization Address [facility] Co de Phone Number [facility] [place] [address] * HEMOGLOBIN A1C W/ ESTIMATED GLUCOSE (02/22/2021 9:05 AM CDT) HGB-A1C 5.6 4.0 - 6.0 % 02/22/2021 1:34 PM CDT [facility] Est Average Glucose 114.0 mg/dL 02/22/2021 1:34 PM CDT [facility] Blood Venipuncture / Unknown 02/22/2021 9:05 AM CDT 02/22/2021 9:05 AM CDT Narrative [facility] - 02/22/2021 1:34 PM CDT HEMOGLOBIN A1C: DIABETIC PATIENTS: WELL-CONTROLLED: ?? 6.2 - 7.0 INTERMEDIATE WELL-CONTROLLED: ??7.0 - 9.0 POORLY-CONTROLLED: ??>9.0 us Cate Patel MD CHEMISTRY ORDERABLES Final R esult Performing Organization Address City/[facility]/ZIP Co de Phone Number [facility] [address] [place] [address] * (ABNORMAL) LIPID PANEL (02/22/2021 9:05 AM CDT) CHOLESTEROL 253(H) <=200 mg/dL 02/22/2021 1:57 PM CDT [facility] TRIGLYCERIDES 77 <150 mg/dL 02/22/2021 1:57 PM CDT [facility] HDL CHOLESTEROL 87.1 >40 mg/dL 1:57 PM CDT [facility] LDL 151(H) 5 - 130 mg/dL 02/22/2021 1:57 PM CDT [facility] VLDL 15 5 - 55 mg/dL 02/22/2021 1:57 PM CDT [facility] CHOL/HDL RATIO 2.9 0.0 - 4.4 02/22/2021 1:57 PM CDT [facility] NON-HDL CHOLESTEROL 165.9(H) <130 mg/dL 02/22/2021 1:57 PM CDT [facility] IS THE PATIENT REQUIRED TO BE FASTING? Yes 02/22/2021 1:57 PM CDT [facility] HAS THE PATIENT BEEN FASTING? Yes 02/22/2021 1:57 PM CDT [facility] Blood Venipuncture / Unknown 02/22/2021 9:05 AM CDT 02/22/2021 9:05 AM CDT us Cate Patel MD CHEMISTRY ORDERABLES Final R esult [facility] [address] [place] [address] * (ABNORMAL) CMP (COMPREHENSIVE METABOLIC PANEL) (02/22/2021 9:05 AM CDT) SODIUM 140 136 - 144 mmol/L 02/22/2021 1:57 PM CDT [facility] POTASSIUM 4.2 3.5 - 5.1 mmol/L 02/22/2021 1:57 PM [facility] CHLORIDE 102 100 - 110 mmol/L 02/22/2021 1:57 PM [facility] CO2, VENOUS 21(L) 22 - 32 mmol/L 02/22/2021 1:57 PM [facility] ANION GAP 21.2(H) 8.0 - 20.0 mmol/L 02/22/2021 1:57 PM [facility] GLUCOSE 98 70 - 99 mg/dL 02/22/2021 1:57 PM [facility] BUN 31(H) 8 - 23 mg/dL 02/22/2021 1:57 PM [facility] CREATININE, BLOOD 1.26(H) 0.60 - 1.10 mg/dL 02/22/2021 1:57 PM [facility] BUN/CREATININE RATIO 25(H) 12 - 20 ratio 02/22/2021 1:57 PM [facility] TOTAL PROTEIN 7.3 6.0 - 8.3 g/dL 02/22/2021 1:57 PM [facility] ALBUMIN 4.6 3.5 - 5.2 g/dL 02/22/2021 1:57 PM [facility] Comment: The colormetric methods used for the determination of Albumin may lead to falsely elevated test results in patients suffering from renal failure or insufficiency due to interference with other proteins. A/G RATIO 1.7 1.0 - 2.0 02/22/2021 1:57 PM [facility] CALCIUM 10.0 8.9 - 10.3 mg/dL 02/22/2021 1:57 PM [facility] T BILI 0.4 <=1.2 mg/dL 02/22/2021 1:57 PM [facility] SGOT (AST) 16 <=32 U/L 02/22/2021 1:57 PM [facility] SGPT (ALT) 15 <=41 U/L 02/22/2021 1:57 PM CDT [facility] ALKALINE PHOSPHATASE 72 35 - 105 U/L 02/22/2021 1:57 PM CDT [facility] GFR, EST. NONAFRICAN 42(L) >=60 02/22/2021 1:57 PM CDT [facility] GFR, EST. 50(L) >=60 021 1:57 PM CDT [facility] Comment: Creatinine Clearance is the preferred criteria for selecting drug dose adjustments in renally impaired patients. ??The GFR is provided as additional pertinent clinical information. GFR is reported in mL/min/1.73 sq m. IS THE PATIENT REQUIRED TO BE FASTING? No 02/22/2021 1:57 PM CDT [facility] Blood Venipuncture / Unknown 02/22/2021 9:05 AM CDT 02/22/2021 9:05 AM CDT us Cate Patel MD CHEMISTRY ORDERABLES Final R esult [facility] [address] [place] [address] * EXTERNAL PAIN REFERRAL (11/27/2020) us Cate Patel MD OUTPT REFERRALS EXT/INT Alysia l Result documented in this encounter Visit Diagnoses Diagnosis Migraine without aura and without status migrainosus, not intractable- Primary Migraine without aura, without mention of intractable migraine without mention of status migrainosus Obesity, Class III, BMI 40-49.9 (morbid obesity) (HCC) Morbid obesity Essential hypertension Unspecified essential hypertension Hypothyroidism, unspecified type Primary osteoarthritis involving multiple joints IFG (impaired fasting glucose) Impaired fasting glucose MARY on CPAP Obstructive sleep apnea (adult) (pediatric) documented in this encounter Additional Health Concerns Assessment Noted Time PHQ-9 Depression Total Score: 0 08/30/20 19 3:00 PM HEALTH INFORMATICS ADVISOR documented as of this encounter Care Teams Heavy Rail Train Operator Relationship Specialty Start Date End Date Cate Patel MD PCP - General Family Medicine 07/25/15 12/10/20 Liliya Rai MD [address] [address] Consulting Physician Endocrinology 10/24/20 documented as of this encounter
--- OUTSIDE RECORDS SUMMARY | 2024-09-21 04:18 | XMS_ITS | Encounter Summary ---
Author Organization [facility] Address [address] [place] [address] Phone Care Team Providers Care Fire Information Officer Name Role Phone Liliya Rai MD Unavailable Cate Patel MD Primary Care Provider [phone] Vadim Browning MD Unavailable Unavailable Sarah Borges MD Unavailable [phone]- [phone] Guerrero Nicholson MD Primary Care Provider Reason for Visit * Reason Comments Medication Refill Encounter Details Date Type Department Care Team (Late st Contact Info) Description 06/22/2021 Refill [facility] - Primary Care - [facility] [address] [place] [address] Cate Patel MD [address] [place] [address] Medication Refill Social History Tobacco [...] have Coronavirus / COVID-19? No / Unsure 06/25/2021 12:48 PM CDT documented as of this encounter Miscellaneous Notes * Telephone Encounter - Evonne Altamirano RN - 06/22/2021 10:45 AM CDT Per nursing clinical judgement, provider to review and approve the medication(s) order(s) if appropriate. Requested Prescriptions Pending Prescriptions Disp Refills omeprazole (PriLOSEC) 40 MG CAPSULE DELAYED RELEASE [Pharmacy Med Name: Omeprazole 40 MG Oral Capsule Delayed Release] 90 Capsule 0 Sig: Take 1 capsule by mouth once daily Proton Pump Inhibitors Protocol Passed - 06/22/2021 10:45 AM Passed - Visit with relevant provider in past 12 months or upcoming 90 days Recent Visits Date Type Provider Dept 03/01/21 Office Visit Cate Patel MD [facility] 10/31/20 Office Visit Cate Patel MD [facility] 07/20/20 Office Visit Cate Patel MD [facility] Showing recent visits within past 365 days and meeting all other requirements Future Appointments Date Type Provider Dept 06/28/21 Appointment Cate Patel MD [facility] Showing future appointments within next 90 days and meeting all other requirements documented in this encounter Plan of Treatment Not on file documented as of this encounter Visit Diagnoses Diagnosis Gastroesophageal reflux disease without esophagitis Esophageal reflux documented in this encounter Additional Health Concerns Assessment Noted Time PHQ-9 Depression Total Score: 0 08/30/20 19 3:00 PM DIRECTOR OF PROVIDER RELATIONS documented as of this encounter Care Teams Fire Information Officer Relationship Specialty Start Date End Date Cate Patel MD [address] [place] [address] PCP - General Family Medicine 12/11/20 03/05/23 Guerrero Nicholson MD [facility] [address] [place] [address] PCP - General Neurology 07/30/23 Liliya Rai MD [address] [address] Consulting Physician Endocrinology 10/24/20 Vadim Browning MD [address] [place] [address] Consulting Physician General Surgery 03/22/21 Sarah Borges MD [address] [place] [address] Consulting Physician Endocrinology 03/22/21 documented as of this encounter
--- OUTSIDE RECORDS SUMMARY | 2024-09-21 04:18 | XMS_ITS | Encounter Summary ---
Author Organization [employer] Care Team Providers Care Dialysis Registered Nurse Name Role Phone Cate Patel MD Primary Care Provider [phone] Encounter Details Date Type Department Care Team (Latest Contact Info) Description 10/16/2020 Travel Social History Tobacco Use Types Packs/Day [...] or suspected to have Coronavirus / COVID-19? Unable to assess 10/16/2020 9:09 AM PLACEMENT MANAGER documented as of this encounter Plan of Treatment Not on file documented as of this encounter Visit Diagnoses Not on filedocumented in this encounter Additional Health Concerns Assessment Noted Time PHQ-9 Depression Total Score: 0 08/30/20 19 3:00 PM PLACEMENT MANAGER documented as of this encounter Care Teams Dialysis Registered Nurse Relationship Specialty Start Date End Date Cate Patel MD PCP - General Family Medicine 07/25/15 12/10/20 documented as of this encounter
--- OUTSIDE RECORDS SUMMARY | 2024-09-21 04:18 | XMS_ITS | Encounter Summary ---
Author Organization [employer] Care Team Providers Care Senior Data Integration Developer Name Role Phone Liliya Rai MD Unavailable Cate Patel MD Primary Care Provider [phone] Vadim Browning MD Unavailable Unavailable Sarah Borges MD Unavailable [phone] Encounter Details Date Type Department Care Team (Latest Contact Info) Description 06/18/2021 Travel Social History Tobacco Use Types Packs/Day [...] have Coronavirus / COVID-19? No / Unsure 06/18/2021 10:46 AM CDT documented as of this encounter Plan of Treatment Not on file documented as of this encounter Visit Diagnoses Not on filedocumented in this encounter Additional Health Concerns Assessment Noted Time PHQ-9 Depression Total Score: 0 08/30/20 19 3:00 PM MOLECULAR BIOLOGY PROFESSOR documented as of this encounter Care Teams Senior Data Integration Developer Relationship Specialty Start Date End Date Cate Patel MD [address] [place] [address] PCP - General Family Medicine 12/11/20 03/05/23 Liliya Rai MD [address] [address] Consulting Physician Endocrinology 10/24/20 Vadim Browning MD [address] [place] [address] Consulting Physician General Surgery 03/22/21 Sarah Borges MD [address] [place] [address] Consulting Physician Endocrinology 03/22/21 documented as of this encounter
--- OUTSIDE RECORDS SUMMARY | 2024-09-21 04:18 | XMS_ITS | Encounter Summary ---
Author Organization [employer] Care Team Providers Care Magento Web Developer Name Role Phone Cate Patel MD Primary Care Provider [phone] Liliya Rai MD Unavailable Encounter Details Date Type Department Care Team (Latest Contact Info) Description 10/31/2020 Travel Social History Tobacco Use Types Packs/Day [...] COVID-19? No / Unsure 10/31/2020 9:26 AM LEARNING DEVELOPMENT SPECIALIST documented as of this encounter Plan of Treatment Not on file documented as of this encounter Visit Diagnoses Not on filedocumented in this encounter Additional Health Concerns Assessment Noted Time PHQ-9 Depression Total Score: 0 08/30/20 19 3:00 PM LEARNING DEVELOPMENT SPECIALIST documented as of this encounter Care Teams Magento Web Developer Relationship Specialty Start Date End Date Cate Patel MD PCP - General Family Medicine 07/25/15 12/10/20 Liliya Rai MD [address] [address] Consulting Physician Endocrinology 10/24/20 documented as of this encounter
--- OUTSIDE RECORDS SUMMARY | 2024-09-21 04:18 | XMS_ITS | Encounter Summary ---
Author Organization [facility] Address [address] [place] [address] Phone Care Team Providers Care Client Application Support Specialist Name Role Phone Liliya Rai MD Unavailable Cate Patel MD Primary Care Provider [phone] Vadim Browning MD Unavailable Unavailable Sarah Borges MD Unavailable +- [phone] Guerrero Nicholson MD Primary Care Provider Reason for Visit * Reason Comments Medication Refill Encounter Details Date Type Department Care Team (Late st Contact Info) Description [facility]/07[facility] [address] [place] [address] Cate Patel MD [address] [place] [address] Medication Refill Social History Tobacco [...] Telephone Encounter - Evonne Altamirano RN - 04/10/2021 11:55 AM CDT Per nursing clinical judgement, provider to review and approve the medication(s) order(s) if appropriate. Requested Prescriptions Pending Prescriptions Disp Refills lisinopril-hydroCHLOROthiazide (PRINZIDE, ZESTORETIC) 20-25 MG Tablet [Pharmacy Med Name: Lisinopril-hydroCHLOROthiazide 20-25 MG Oral Tablet] 90 Tablet 0 Sig: Take 1 tablet by mouth once daily Nando Inhibitors and Diuretics Combo Protocol Passed - 04/10/2021 11:55 AM Passed - Serum potassium on record in past 12 months POTASSIUM Date Value Ref Range Status 02/22/2021 4.2 3.5 - 5.1 mmol/L Final Passed - Serum sodium on record in past 12 months SODIUM Date Value Ref Range Status 02/22/2021 140 136 - 144 mmol/L Final Passed - Blood pressure on record in past 12 months Clinician-entered: BP Readings from Last 3 Encounters: 03/22/21 128/64 03/01/21 128/84 12/21/20 128/63 Patient-entered: No data recorded Passed - Visit with relevant provider in past 12 months or upcoming 90 days Recent Visits Date Type Provider Dept 03/01/21 Office Visit Cate Patel MD [facility] 10/31/20 Office Visit Cate Patel MD [facility] 07/20/20 Office Visit Cate Patel MD [facility] Show[facility] recent visits within past 365 days and meeting all other requirements Future Appointments Date Type Provider Dept 06/21/21 Appointment [facility] 06/28/21 Appointment Cate Patel MD [facility] Showing future appointments within next 90 days and meeting all other requirements Passed - GFR on record in past 12 months GFR, EST. NONAFRICAN Date Value Ref Range Status 02/22/2021 42 (L) >=60 Final Euthyrox 75 MCG Tablet [Pharmacy Med Name: Euthyrox 75 MCG Oral Tablet] 90 Tablet 0 Sig: Take 1 tablet by mouth once daily Thyroid Hormones Protocol Passed - 04/10/2021 11:55 AM Passed - Visit with relevant provider in past 12 months or upcoming 90 days Recent Visits Date Type Provider Dept 03/01/21 Office Visit [facility] 10/31/20 Office Visit [facility] 07/20/20 Office Visit [facility] Showing recent visits within past 365 days and meeting all other requirements Future Appointments Date Type Provider Dept 06/21/21 Appointment [facility], [facility] 06/28/21 Appointment [facility] Showing future appointments within next 90 days and meeting all other requirements Passed - Normal TSH in past 12 months TSH Date Value Ref Range Status 02/22/2021 1.180 0.270 - 4.200 mIU/L Final dilTIAZem (CARDIZEM CD) 240 MG CAPSULE SR 24 HR [Pharmacy Med Name: dilTIAZem HCl ER Coated Beads 240 MG Oral Capsule Extended Release 24 Hour] 90 Capsule 0 Sig: Take 1 capsule by mouth once daily Calcium-Channel Blockers Protocol Passed - 04/10/2021 11:55 AM Passed - BP on record in the past year Clinician-entered: BP Readings from Last 3 Encounters: 03/22/21 128/64 03/01/21 128/84 12/21/20 128/63 Patient-entered: No data recorded Passed - Visit with relevant provider in past 12 months or upcoming 90 days Recent Visits Date Type Provider Dept 03/01/21 Office Visit [facility]ate [facility] MD [facility] 10/31/20 Office Visit [facility] 07/20/20 Office Visit Cate Patel MD [facility] Showing recent visits within past 365 days and meeting all other requirements Future Appointments Date Type Provider Dept 06/21/21 [facility] 06/28/21 Appointment Cate Patel MD [facility] Showing future appointments within next 90 days and meeting all other requirements documented in this encounter Plan of Treatment Not on file documented as of this encounter Visit Diagnoses Diagnosis Essential hypertension Unspecified essential hypertension Acquired hypothyroidism Unspecified hypothyroidism documented in this encounter Additional Health Concerns Assessment Noted Time PHQ-9 Depression Total Score: 0 08/30/20 19 3:00 PM CTO documented as of this encounter Care Teams Client Application Support Specialist Relationship Specialty Start Date End Date Cate Patel MD [address] [place] [address] PCP - General Family Medicine 12/11/20 03/05/23 Guerrero Nicholson MD [facility] [address] [place] [address] PCP - General Neurology 07/30/23 Liliya Rai MD [address] [address] Consulting Physician Endocrinology 10/24/20 Vadim Browning MD [address] [place] [address] Consulting Physician General Surgery 03/22/21 Sarah Borges MD [address] [place] [address] Consulting Physician Endocrinology 03/22/21 documented as of this encounter
--- OUTSIDE RECORDS SUMMARY | 2024-09-21 04:18 | XMS_ITS | Encounter Summary ---
Author Organization [employer] Care Team Providers Care Sack Repairer Name Role Phone Cate Patel MD Primary Care Provider [phone] Encounter Details Date Type Department Care Team (Latest Contact Info) Description 10/23/2020 Travel Social History Tobacco Use Types Packs/Day [...] have Coronavirus / COVID-19? No / Unsure 10/23/2020 10:04 AM ANIMAL FEEDER documented as of this encounter Plan of Treatment Not on file documented as of this encounter Visit Diagnoses Not on filedocumented in this encounter Additional Health Concerns Assessment Noted Time PHQ-9 Depression Total Score: 0 08/30/20 19 3:00 PM ANIMAL FEEDER documented as of this encounter Care Teams Sack Repairer Relationship Specialty Start Date End Date Cate Patel MD PCP - General Family Medicine 07/25/15 12/10/20 documented as of this encounter
--- OUTSIDE RECORDS SUMMARY | 2024-09-21 04:18 | XMS_ITS | Encounter Summary ---
Author Organization [facility] Address [address] [place] [address] Phone Care Team Providers Care Chief Airline Radio Operator Name Role Phone Liliya Rai MD Unavailable Cate Patel MD Primary Care Provider [phone] Vadim Browning MD Unavailable Unavailable Sarah Borges MD Unavailable +- [phone] Reason for Visit * Reason Onset Date Comments Medication Refill 12/20/2020 Encounter Details Date Type Department Care Team (Late st Contact Info) Description 12/20/2020 Refill [facility] [address] [place] [address] Cate Patel MD [address] [place] [address] Medication Refill Social History Tobacco Use Types [...] Telephone Encounter - Rosalba Black RN - 12/20/2020 10:42 AM CDT Medication failed the protocol, provider to review and approve the medication order if appropriate. Requested Prescriptions Pending Prescriptions Disp Refills cyclobenzaprine (FLEXERIL) 10 MG Tablet 90 Tablet 0 Sig: Take 1 Tablet by mouth 3 times daily as needed for Muscle spasms for up to 30 days. Not Delegated - Analgesics: Muscle Relaxants Failed - 12/20/2020 10:32 AM Failed - This refill cannot be delegated Passed - Valid encounter within last 6 months Past Office Visits Recent Outpatient Visits 1 month ago Migraine without aura and without status migrainosus, not intractable [facility] Cate Patel MD 5 months ago Essential hypertension [facility] Patel MD 10 months ago [facility] Obesity, Class III, BMI 40-49.9 (morbid obesity) (HCC) [facility] Essential hypertension [facility] Cate Patel MD Upcoming Appointments Future Appointments Tomorrow Pepe Anthony MD [facility], [facility] In 2 months Saroj Norwood [facility] In 2 months Cate Patel MD [facility] In 4 months Liliya Rai MD [facility] Endocrinology [facility] MULE TENDER - Recent and Past Visits Recent Visits Date Type Provider Dept 10/31/20 Office Visit Cate Patel MD [facility] 07/20/20 Office Visit Cate Patel MD [facility] 02/17/20 Office Visit Cate Patel MD [facility] Showing recent visits within past 460 days with a meds authorizing provider and meeting all other requirements Future Appointments Date Type Provider Dept 03/01/21 Appointment Cate Patel MD [facility] Showing future appointments within next 90 days with a meds authorizing provider and meeting all other requirements Topiramate 50 MG Tablet 60 Tablet 2 Sig: Take 1 Tablet by mouth 2 times daily. Neurology: Anticonvulsants Passed - 12/20/2020 10:32 AM Passed - Valid encounter within last 12 months Past Office Visits Recent Outpatient Visits 1 month ago Migraine without aura and without status migrainosus, not intractable [facility] Cate Patel MD 5 months ago Essential hypertension [facility] Cate Patel MD 10 months ago Essential hypertension [facility] Cate Patel MD 1 year ago Obesity, Class III, BMI 40-49.9 (morbid obesity) (HCC) [facility] Cate Patel MD 1 year ago Essential hypertension [facility] Cate Patel MD Upcoming Appointments Future Appointments Tomorrow Pepe Anthony MD [facility], [facility] In 2 months [facility] 2 months Cate Patel MD [facility] In 4 months Liliya Rai MD [facility] Endocrinology [facility] MULE TENDER - Recent and Past Visits Recent Visits Date Type Provider Dept 10/31/20 Office Visit Cate Patel MD [facility] 07/20/20 Office Visit Cate Patel MD [facility] 02/17/20 Office Visit Cate Patel MD [facility] Showing recent visits within past 460 days with a meds authorizing provider and meeting all other requirements Future Appointments Date Type Provider Dept 03/01/21 Appointment Cate Patel MD [facility] Showing future appointments within next 90 days with a meds authorizing provider and meeting all other requirements * Telephone Encounter - Conchis Frankel - 12/20/2020 10:31 AM CDT Patient switched pharmacies Please send refills to [facility] documented in this encounter Plan of Treatment Not on file documented as of this encounter Visit Diagnoses Diagnosis Arm pain, anterior, left Chronic left-sided headaches Headache Obesity, Class III, BMI 40-49.9 (morbid obesity) (HCC) Morbid obesity documented in this encounter Additional Health Concerns Assessment Noted Time PHQ-9 Depression Total Score: 0 08/30/20 19 3:00 PM POLITICAL CONSULTANT documented as of this encounter Care Teams Chief Airline Radio Operator Relationship Specialty Start Date End Date Cate Patel MD [address] [place] [address] PCP - General Family Medicine 12/11/20 03/05/23 Liliya Rai MD [address] [address] Consulting Physician Endocrinology 10/24/20 Vadim Browning MD [address] [place] [address] Consulting Physician General Surgery 03/22/21 Sarah Borges MD [address] [place] [address] Consulting Physician Endocrinology 03/22/21 documented as of this encounter
--- OUTSIDE RECORDS SUMMARY | 2024-09-21 04:18 | XMS_ITS | Encounter Summary ---
Author Organization [email or web address] Care Team Providers Care Social Insurance Administrator Name Role Phone Liliya Rai MD Unavailable Cate Patel MD Primary Care Provider [phone] Vadim Browning MD Unavailable Unavailable Sarah Borges MD Unavailable [phone] Encounter Details Date Type Department Care Team (Latest Contact Info) Description 04/23/2021 Travel Social History Tobacco Use Types Packs/Day [...] have Coronavirus / COVID-19? No / Unsure 04/23/2021 9:05 AM CDT documented as of this encounter Plan of Treatment Not on file documented as of this encounter Visit Diagnoses Not on filedocumented in this encounter Additional Health Concerns Assessment Noted Time PHQ-9 Depression Total Score: 0 08/30/20 3:00 PM RECORD SYSTEMS ANALYST documented as of this encounter Care Teams Social Insurance Administrator Relationship Specialty Start Date End Date Cate Patel MD [address] [place] [address] PCP - General Family Medicine 12/11/20 03/05/23 Liliya Rai MD [address] [address] Consulting Physician Endocrinology 10/24/20 Vadim Browning MD [address] [place] [address] Consulting Physician General Surgery 03/22/21 Sarah Borges MD [address] [place] [address] Consulting Physician Endocrinology 03/22/21 documented as of this encounter
--- OUTSIDE RECORDS SUMMARY | 2024-09-21 04:18 | XMS_ITS | Encounter Summary ---
Author Organization [employer] Care Team Providers Care Wall Scraper Name Role Phone Liliya Rai MD Unavailable Cate Patel MD Primary Care Provider [phone] Vadim Browning MD Unavailable Unavailable Sarah Borges MD Unavailable [phone] Encounter Details Date Type Department Care Team (Latest Contact Info) Description 05/07/2021 Travel Social History Tobacco Use Types Packs/Day [...] have Coronavirus / COVID-19? No / Unsure 05/07/2021 9:49 AM CDT documented as of this encounter Plan of Treatment Not on file documented as of this encounter Visit Diagnoses Not on filedocumented in this encounter Additional Health Concerns Assessment Noted Time PHQ-9 Depression Total Score: 0 08/30/20 19 3:00 PM ELECTRIC WELDER HELPER documented as of this encounter Care Teams Wall Scraper Relationship Specialty Start Date End Date Cate Patel MD [address] [place] [address] PCP - General Family Medicine 12/11/20 03/05/23 Liliya Rai MD [address] [address] Consulting Physician Endocrinology 10/24/20 Vadim Browning MD [address] [place] [address] Consulting Physician General Surgery 03/22/21 Sarah Borgse MD [address] [place] [address] Consulting Physician Endocrinology 03/22/21 documented as of this encounter
--- OUTSIDE RECORDS SUMMARY | 2024-09-21 04:18 | XMS_ITS | Encounter Summary ---
Author Organization [facility] Address [address] [place] [address] Phone Care Team Providers Care Email Marketing Assistant Name Role Phone Liliya Rai MD Unavailable Cate Patel MD Primary Care Provider [phone] Vadim Browning MD Unavailable Unavailable Sarah Borges MD Unavailable [phone] Reason for Visit * Reason Onset Date Comments Procedure 04/23/2021 Encounter Details Date Type Department Care Team (Late st Contact Info) Description 04/23/2021 Telephone [facility] - [facility] [address] [place] [address] Alee rOtiz Marcelle, [facility] [address] [place] [address] Procedure Social History Tobacco Use Types Packs/Day Years [...] Miscellaneous Notes * Telephone Encounter - Vira Jimenez RN - 04/23/2021 9:54 AM CDT Patient in office reporting that she has not been scheduled for her EGd. Spoke with patient to update her that the providers schedules have been opened up and office will be calling her. Patient is aware and verbalizes understanding. documented in this encounter Plan of Treatment Not on file documented as of this encounter Visit Diagnoses Not on filedocumented in this encounter Additional Health Concerns Assessment Noted Time PHQ-9 Depression Total Score: 0 08/30/20 19 3:00 PM CAPPER MACHINE OPERATOR documented as of this encounter Care Teams Email Marketing Assistant Relationship Specialty Start Date End Date Cate Patel MD [address] [place] [address] PCP - General Family Medicine 12/11/20 03/05/23 Liliya Rai MD [address] [address] Consulting Physician Endocrinology 10/24/20 Vadim Browning MD [address] [place] [address] Consulting Physician General Surgery 03/22/21 Sarah Borges MD [address] [place] [address] Consulting Physician Endocrinology 03/22/21 documented as of this encounter
--- OUTSIDE RECORDS SUMMARY | 2024-09-21 04:18 | XMS_ITS | Encounter Summary ---
Author Organization [employer] Care Team Providers Care Construction Technology Instructor Name Role Phone Liliya Rai MD Unavailable Cate Patel MD Primary Care Provider [phone] Vadim Browning MD Unavailable Unavailable Sarah Borges MD Unavailable [phone] Encounter Details Date Type Department Care Team (Latest Contact Info) Description 06/25/2021 Travel Social History Tobacco Use Types Packs/Day [...] Total Score: 0 08/30/20 19 3:00 PM BOOKSTORE CLERK documented as of this encounter Care Teams Construction Technology Instructor Relationship Specialty Start Date End Date Cate Patel MD [address] [place] [address] PCP - General Family Medicine 12/11/20 03/05/23 Liliya Rai MD [address] [phone] Consulting Physician Endocrinology 10/24/20 Vadim Browning MD [address] [place] [address] Consulting Physician General Surgery 03/22/21 Sarah Borges MD [address] [place] [address] Consulting Physician Endocrinology 03/22/21 documented as of this encounter
--- OUTSIDE RECORDS SUMMARY | 2024-09-21 04:18 | XMS_ITS | Encounter Summary ---
Author Organization [facility] Address [address] [place] [address] Phone Care Team Providers Care Wastewater Project Manager Name Role Phone Liliya Rai MD Unavailable Cate Patel MD Primary Care Provider [phone] Vadim Browning MD Unavailable Unavailable Sarah Borges MD Unavailable [phone] Reason for Referral * Radiology Services (Routine) - Closed Specialty Diagnoses / Procedures Referred By Conttylor t Referred To Contact Radiology Diagnoses Postmenopausal Procedures POLI BONE DENSITOMETRY AXIAL SKELETON Cate Patel MD [address] [place] [address] Phone: tel: fax: Referral ID Status Reason Start Date Expiration Date Visits Re quested Visits Authorized [id number] Closed 06/28/2021 1 1 Reason for Visit * Radiology Services (Routine) - Closed Specialty Diagnoses / Procedures Referred By Conttylor t Referred To Contact Radiology Diagnoses Postmenopausal Procedures POLI BONE DENSITOMETRY AXIAL SKELETON Cate Patel MD [address] [place] [address] Phone: tel: fax: Referral ID Status Reason Start Date Expiration Date Visits Re quested Visits Authorized [id number] Closed 06/28/2021 1 1 Encounter Details Date Type Department Care Team (Latest Contact Info) Description 07/17/2021 9:19 AM CDT - 07/17/2021 11:59 PM CDT Hospital Encounter [facility] [address] [facility] [place] [address] Cate Patel MD [address] [place] [address] Discharge Disposition: Discharged to home or Selfcare [...] AM CDT documented as of this encounter Medications at Time of Discharge Aspirin 81 MG Tablet Take 81 mg by mouth daily. Calcium Carbonate-Vitamin D (CALCIUM 500 + D PO) Take 1 Tab by mouth daily. 3 Cholecalciferol (VITAMIN D3) 1000 UNIT Tablet Take 1,000 Units by mouth daily. 3 dilTIAZem (CARDIZEM CD) 240 MG CAPSULE SR 24 HRIndications:Essent ial hypertension Take 1 capsule by mouth once daily 90 Capsule 04/10/2021 1 Euthyrox 75 MCG TabletIndications:Ac quired hypothyroidism Take 1 tablet by mouth once daily 90 Tablet 04/10/2021 1 lisinopril-hydroCHLO ROthiazide (PRINZIDE, ZESTORETIC) 20-25 MG TabletIndications:Es sential hypertension Take 1 tablet by mouth once daily 90 Tablet 04/10/2021 1 Loperamide HCl (IMODIUM) 2 MG Tablet Take 1 Tab by mouth daily as needed. 2 meclizine (ANTIVERT) 25 MG TabletIndications:Be nign paroxysmal positional vertigo, unspecified laterality Take 1 Tablet by mouth every 8 hours as needed for Dizziness. 90 Tablet 1 03/01/2021 2 Melatonin 5 MG Capsule Take 5 mg by mouth nightly. 3 omeprazole (PriLOSEC) 40 MG CAPSULE DELAYED RELEASEIndications:G astroesophageal reflux disease without esophagitis Take 1 capsule by mouth once daily 90 Capsule 06/22/2021 2 simvastatin (ZOCOR) 5 MG TabletIndications:Hy perlipidemia, unspecified hyperlipidemia type Take 1 Tablet by mouth every evening. 90 Tablet 1 03/01/2021 2 Topiramate 50 MG TabletIndications:Ob esity, Class III, BMI 40-49.9 (morbid obesity) (HCC) Take 1 Tablet by mouth 2 times daily. 180 Tablet 1 06/28/2021 2 Zinc Sulfate (ZINCATE PO) Take 1 Tab by mouth daily. 3 documented as of this encounter Plan of Treatment Not on file documented as of this encounter Procedures Procedure Name Priority Date/Time Associated Diagnosis Comments [facility] BONE DENSITOMETRY AXIAL SKELETON Routine 07/17/2021 10:10 AM CDT Postmenopausal documented in this encounter Results * [facility] BONE DENSITOMETRY AXIAL SKELETON (07/17/2021 10:10 AM [...] STUDY: ?? Post-menopausal female, screening for osteoporosis. Hogshead Mat Inspector/Model: ?? [email or web address][employer]de (S/N [id number]) CLINICAL INFORMATION: ??Current height: ??61 inches ? [...] PM T: ??07/17/2021 3:37 PM Report ID: [id number] Reading Location: ??[id number] Procedure Note Werner Ladd MD - 07/17/2021 EXAM DESCRIPTION: POLI BONE DENSITOMETRY AXIAL SKELETON REASON FOR STUDY: Post-menopausal female, screening for osteoporosis. Hogshead Mat Inspector/Model: [email or web address][employer]de (S/N [id number]) CLINICAL INFORMATION: Current height: 61 inches Maximum [...] by Werner Ladd M.D. AB: Report ID: [id number] Reading Location: [id number] IMPRESSION: 1. Low bone mass by WHO [...] MD IMG DEXA ORDERABLES Final Re sult documented in this encounter Visit Diagnoses Diagnosis Postmenopausal Asymptomatic postmenopausal status (age-related) (natural) documented in this encounter Additional Health Concerns Assessment Noted Time PHQ-9 Depression Total Score: 0 08/30/20 19 3:00 PM CHAIN PERSON documented as of this encounter Care Teams Wastewater Project Manager Relationship Specialty Start Date End Date Cate Patel MD [address] [place] [address] PCP - General Family Medicine 12/11/20 03/05/23 Liliya Rai MD [address] [address] Consulting Physician Endocrinology 10/24/20 Vadim Browning MD [address] [place] [address] Consulting Physician General Surgery 03/22/21 Sarah Borges MD [address] [place] [address] Consulting Physician Endocrinology 03/22/21 documented as of this encounter
--- OUTSIDE RECORDS SUMMARY | 2024-09-21 04:18 | XMS_ITS | Encounter Summary ---
Author Organization [employer] Care Team Providers Care Shotgun Shell Assembly Machine Adjuster Name Role Phone Liliya Rai MD Unavailable Cate Patel MD Primary Care Provider [phone] Encounter Details Date Type Department Care Team (Latest Contact Info) Description 12/11/2020 Travel Social History Tobacco Use Types Packs/Day [...] have Coronavirus / COVID-19? No / Unsure 12/11/2020 9:14 AM CLOTH PRESSER documented as of this encounter Plan of Treatment Not on file documented as of this encounter Visit Diagnoses Not on filedocumented in this encounter Additional Health Concerns Assessment Noted Time PHQ-9 Depression Total Score: 0 08/30/20 19 3:00 PM CLOTH PRESSER documented as of this encounter Care Teams Shotgun Shell Assembly Machine Adjuster Relationship Specialty Start Date End Date Cate Patel MD [address] [place] [address] PCP - General Family Medicine 12/11/20 03/05/23 Liliya Rai MD [address] [address] Consulting Physician Endocrinology 10/24/20 documented as of this encounter
--- OUTSIDE RECORDS SUMMARY | 2024-09-21 04:18 | XMS_ITS | Encounter Summary ---
Author Organization [facility] Address [address] [place] [address] Phone Care Team Providers Care Children'S Librarian Name Role Phone Liliya Rai MD Unavailable Cate Patel MD Primary Care Provider [phone] Vadim Browning MD Unavailable Unavailable Sarah Borges MD Unavailable [phone] Reason for Visit * Reason Onset Date Comments Results 07/18/2021 mri 04/18/21 Encounter Details Date Type Department Care Team (Late st Contact Info) Description 07/18/2021 Telephone [facility] - Primary Care - [facility] [place] [address] Cate Patel MD [address] [place] [address] Results (mri 04/18/21) Social History Tobacco Use Types Packs/Day Years [...] encounter Miscellaneous Notes * Telephone Encounter - Cate Patel MD - 07/18/2021 10:37 PM CDT Noted. As long as it monitored by specialist, no need to [place] repeat [place]. * Telephone Encounter - Evonne Altamirano RN - 07/18/2021 2:25 PM CDT Per pt she was told by her neurosurgeon Dr. 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 Pt told by Dr. Browning to have MRIs completed at [facility] vs [facility] for better imaging. Pt states she sees Dr. Rai every 6 months and he follows up on her pituitary mass as well as thyroid. She sees a pituitary specialist Dr. Mata and she has had recent labs which shows borderline low values. Pt did notknow which labs these were. * Telephone Encounter - Estefany Tijerina RN - 07/18/2021 11:36 AM CDT Gracia from Dr. Simms's office calling to make sure Cate Patel MD got the office notes and results from MRI. Appears that they might have been received per the previous note, but need to determine who said to just monitor in a year and if there should be alternative recommendations at this time? Results are available in care everywhere for MRI 04/18/21. * Telephone Encounter - Evonne Altamirano RN - 07/18/2021 9:50 AM CDT Informed pt of pituitary mass noted on MRI from [facility]. Pt states she was aware of this mass from a MRI done on 04/18/21 at [place]. She was told to f/u in one year. Please advise. 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
--- OUTSIDE RECORDS SUMMARY | 2024-09-21 04:18 | XMS_ITS | Encounter Summary ---
Author Organization [facility] Address [address] [place] [address] Phone Care Team Providers Care General Labor Forklift Operator Name Role Phone Liliya Rai MD Unavailable Cate Patel MD Primary Care Provider [phone] Vadim Browning MD Unavailable Unavailable Sarah Borges MD Unavailable [phone] Reason for Referral * Radiology Services (Routine) - Closed Specialty Diagnoses / Procedures Referred By Contac t Referred To Contact Radiology Diagnoses Postmenopausal Procedures POLI BONE DENSITOMETRY AXIAL SKELETON Cate Patel MD [address] [place] [address] Phone: tel: fax: Referral ID Status Reason Start Date Expiration Date Visits Re quested Visits Authorized [id number] Closed 06/28/2021 1 1 Reason for Visit * Reason Comments Hyperlipidemia Encounter Details Date Type Department Care Team (Latest Contact Info) Description 06/28/2021 9:45 AM CDT Office Visit [facility] - Primary Care - Sar[address] [place] [address] Cate Patel MD [address] [place] [address] Primary hypertension (Primary Dx); Hyperlipidemia, unspecified hyperlipidemia type; Obesity, Class III, BMI 40-49.9 (morbid obesity) (HCC); Encounter for immunization; Postmenopausal Discharge Disposition: Discharged to home or Selfcare [...] have Coronavirus / COVID-19? No / Unsure 06/28/2021 9:31 AM CDT documented as of this encounter Last Filed Vital Signs Vital Sign Reading Time Taken Comments Blood Pressure 124/62 06/28/2021 9:34 AM CDT Pulse 79 06/28/2021 9:34 AM CDT Temperature 36.6 ??C (97.8 ??F) 06/28/2021 9:34 AM CD T Respiratory Rate 18 06/28/2021 9:34 AM CDT Oxygen Saturation 98% 06/28/2021 9:34 AM CDT Inhaled Oxygen Concentration - - Weight 93 kg (205 lb) 06/28/2021 9:34 AM CDT Height 157.5 cm (5' 2 ) 06/28/2021 9:34 AM CDT Body Mass Index 37.49 06/28/2021 9:34 AM CDT documented in this encounter Progress Notes * Dae Contreras CMA - 06/28/2021 9:45 AM CDT Silvia Boss, 76 y.o., female is here for Hyperlipidemia Medication Refills: Patient reports/denies need for medication [...] Take 1 capsule by mouth once daily 04/10/21 Yes Cate Patel MD Euthyrox 75 MCG Tablet Take 1 tablet by mouth once daily 04/10/21 Yes Cate Patel MD lisinopril-hydroCHLOROthiazide (PRINZIDE, ZESTORETIC) 20-25 MG Tablet Take 1 tablet by mouth once daily 04/10/21 Yes Cate Patel MD Loperamide HCl (IMODIUM A-D) 2 MG Tablet Take 1 Tab by mouth daily as needed. Yes Devin Singh MD meclizine (ANTIVERT) 25 MG Tablet Take 1 Tablet by mouth every 8 hours as needed for Dizziness. 03/01/21 Yes Cate Patel MD Melatonin 5 MG Capsule Take 5 mg by mouth nightly. Yes Devin Singh MD omeprazole (PriLOSEC) 40 MG CAPSULE DELAYED RELEASE Take 1 capsule by mouth once daily 06/22/21 Yes Cate Patel MD simvastatin (ZOCOR) 5 MG Tablet Take 1 Tablet by mouth every evening. 03/01/21 Yes Cate Patel MD Topiramate 50 MG Tablet Take 1 Tablet by mouth 2 times daily. Patient taking differently: Take 50 mg by mouth 2 times daily. Indications: Migraine Headache 03/01/21 Yes Cate Patel MD Zinc Sulfate (ZINCATE PO) Take 1 Tab by mouth daily. Yes Devin Singh MD There are no discontinued medications. I have [...] Health Maintenance Due Topic Date Due ??? DEXA Bone Density 02/15/2021 ??? Influenza Immunization (1) 06/06/2021 Orders Pended: n/a The following BPA's have been addressed with the patient today: Flu * Dae Contreras CMA - 06/28/2021 9:45 AM CDT Silvia is here for Flu immunizations per order of Dr. Esposito dated 06/28/21. Administered in left deltoid . Vaccine Information Sheet(s) were given on 06/28/21. Verbal consent was obtained. Silvia tolerated the immunization well without incident. See Immunization activity for details. * Cate Paetl MD - 06/28/2021 9:45 AM CDT Subjective Chief Complaint Patient presents with ??? Hyperlipidemia History of Present Illness Silvia presents here for a followup for her chronic medical conditions. BP is well controlled todayat 124/62 mmHg. She continues to take her lisinopril/HCTZ and diltiazem every day without any problems. With topiramate 50 mg b.i.d. she has lost 45 pounds since July of 2020. She has made excellent progress. She is concerned that her weight has plateaued and she is not able to lose any more weight. Her current BMI is 37.49. I encouraged to continue low-fat, low carb diet and exercise. Her labs done on 06/18/2021 were reviewed. CBC looks good. Hemoglobin is 12.1. Thyroid functions are normal. Lipid panel shows an LDL of 120, which is well controlled. Iron studies are normal. Ferritin is high. FBS was impaired at 102. Creatinine is 1.24 with an EGFR of 42. She has seen her pain specialist for her neck pain. She is getting an MRI of her cervical spine. She has seen Dr. Anthony's PA on 06/25/2021 for iron deficiency anemia, which is stable. IJN: [id number] Her last ferritin level was high at 509. Iron saturation is normal. She does not take any iron supplements. ROS: RESPIRATORY: Patient denies shortness of breath, chronic cough or other respiratory problems. CARDIAC: Patient denies chest pain, chest pressure, palpitations, diaphoresis, chest pain radiating into arms or neck. PMH/PSH/FH/SH/medications/allergies/health maintenance entries were reviewed with patient and updated. Objective: Physical Exam Vitals: 06/28/21 0934 BP: 124/62 Pulse: 79 Resp: 18 Temp: 97.8 ??F (36.6 ??C) SpO2: 98% Weight: 205 lb (93 kg) Height: 5' 2 (1.575 m) Body mass index is 37.49 kg/m??. Constitutional: She appears well-developed and well-nourished. No distress. HENT: Head: Atraumatic, normocephalic. Cardiovascular: Normal rate, regular rhythm, normal heart sounds and intact distal pulses. No murmur/rubs/gallops heard. Pulmonary/Chest: clear to auscultation bilaterally, no crepts or wheezes. Musculoskeletal/extremities: no pedal edema, no calf tenderness. Skin: Skin is warm and dry. Assessment and Plan Silvia Boss presents here for Hyperlipidemia 1. Primary hypertension - continue lisinopril/HCTZ 20/25 mg q.d. and diltiazem 240 mg q.d. 2. Hyperlipidemia, unspecified hyperlipidemia type - continue simvastatin 5 mg q.d. 3. Obesity, Class III, BMI 40-49.9 (morbid obesity) (HCC) - has lost 45 lb since starting topiramate 50 mg b.i.d. in July 2020. Continue. 4. Encounter for immunization - INFLUENZA VACCINE QUAD IM - INFLUENZA (>3) IMMUNIZATION QUESTIONS 5. Postmenopausal - POLI BONE DENSITOMETRY AXIAL SKELETON; Future Followup: Return in about 6 months (around 12/26/2021).with labs done 1 week prior to next appointment. The patient understood the plan, questions were answered and AVS including the updated medication list was provided to the patient. Documentation for this visit on 06/28/21 was completed using a template. I have seen and examined the patient. Everything documented was personally performed at this visit with the necessary additions, deletions and changes made as appropriate. This note was dictated using [employer] fluency dictation system and there may be errors in power transmission engineer. Despite proof reading the note, there may be mistakes and I apologize for those. Cate Patel MD documented in this encounter Plan of Treatment Not on file documented as of this encounter Results * THYROID STIMULATING HORMONE (TSH) (12/19/2021 10:30 AM CDT) TSH 1.100 0.270 - 4.200 mIU/L 12/19/2021 11:17 AM CDT [facility] Blood Venipuncture / Unknown 12/19/2021 10:30 AM CDT 12/19/2021 10:40 AM CDT us Cate Patel MD CHEMISTRY ORDERABLES Final R esult [facility] [address] [place] [address] * THYROXINE (T4) FREE (12/19/2021 10:30 AM CDT) T4 FREE 1.5 0.9 - 1.7 ng/dL 12/19/2021 11:17 AM CDT [facility] Blood Venipuncture / Unknown 12/19/2021 10:30 AM CDT 12/19/2021 10:40 AM CDT us Cate Patel MD CHEMISTRY ORDERABLES Final R esult [facility] [address] [place] [address] * (ABNORMAL) LIPID PANEL (12/19/2021 10:30 AM CDT) CHOLESTEROL 223(H) <=200 mg/dL 12/19/2021 11:17 AM CDT [facility] TRIGLYCERIDES 89 <150 mg/dL 12/19/2021 11:17 AM CDT [facility] HDL CHOLESTEROL 88.1 >40 mg/dL 11:17 AM CDT [facility] LDL 117 5 - 130 mg/dL 12/19/2021 11:17 AM CDT [facility] VLDL 18 5 - 55 mg/dL 12/19/2021 11:17 AM CDT [facility] CHOL/HDL RATIO 2.5 0.0 - 4.4 12/19/2021 11:17 AM CDT [facility] NON-HDL CHOLESTEROL 134.9(H) <130 mg/dL 12/19/2021 11:17 AM CDT [facility] IS THE PATIENT REQUIRED TO BE FASTING? Yes 12/19/2021 11:17 AM CDT [facility] HAS THE PATIENT BEEN FASTING? Yes 12/19/2021 11:17 AM CDT [facility] Blood Venipuncture / Unknown 12/19/2021 10:30 AM CDT 12/19/2021 10:40 AM CDT us Cate Patel MD CHEMISTRY ORDERABLES Final R esult [facility] [address] [place] [address] * (ABNORMAL) CMP (COMPREHENSIVE METABOLIC PANEL) (12/19/2021 10:30 AM CDT) Pathologist [facility] SODIUM 140 136 - 144 mmol/L 12/19/2021 11:17 AM CDT [facility] POTASSIUM 4.3 3.5 - 5.1 mmol/L 12/19/2021 11:17 AM [facility] CHLORIDE 105 100 - 110 mmol/L 12/19/2021 11:17 AM [facility] CO2, VENOUS 23 22 - 32 mmol/L 12/19/2021 11:17 AM [facility] ANION GAP 16.3 8.0 - 20.0 mmol/L 12/19/2021 11:17 AM [facility] GLUCOSE 108(H) 70 - 99 mg/dL 12/19/2021 11:17 AM [facility] BUN 27(H) 8 - 23 mg/dL 12/19/2021 11:17 AM [facility] CREATININE, BLOOD 1.25(H) 0.60 - 1.10 mg/dL 12/19/2021 11:17 AM [facility] BUN/CREATININE RATIO 22(H) 12 - 20 ratio 12/19/2021 11:17 AM [facility] TOTAL PROTEIN 6.9 6.0 - 8.3 g/dL 12/19/2021 11:17 AM [facility] ALBUMIN 4.5 3.5 - 5.2 g/dL 12/19/2021 11:17 AM [facility] Comment: The colormetric methods used for the determination of Albumin may lead to falsely elevated test results in patients suffering from renal failure or insufficiency due to interference with other proteins. A/G RATIO 1.9 1.0 - 2.0 12/19/2021 11:17 AM [facility] CALCIUM 9.6 8.9 - 10.3 mg/dL 12/19/2021 11:17 AM [facility] T BILI 0.3 <=1.2 mg/dL 12/19/2021 11:17 AM [facility] SGOT (AST) 13 <=32 U/L 12/19/2021 11:17 AM [facility] SGPT (ALT) 9 <=41 U/L 12/19/2021 11:17 AM [facility] ALKALINE PHOSPHATASE 70 35 - 105 U/L 12/19/2021 11:17 AM CDT [facility] GFR, EST. NONAFRICAN 42(L) >=60 12/19/2021 11:17 AM CDT [facility] GFR, EST. 51(L) >=60 022 11:17 AM CDT [facility] Comment: Creatinine Clearance is the preferred criteria for selecting drug dose adjustments in renally impaired patients. ??The GFR is provided as additional pertinent clinical information. GFR is reported in mL/min/1.73 sq m. IS THE PATIENT REQUIRED TO BE FASTING? No 12/19/2021 11:17 AM CDT [facility] Blood Venipuncture / Unknown 12/19/2021 10:30 AM CDT 12/19/2021 10:40 AM CDT us Cate Patel MD CHEMISTRY ORDERABLES Final R esult [facility] [address] [place] [address] * [facility] BONE DENSITOMETRY AXIAL SKELETON (07/17/2021 10:10 [...] STUDY: ?? Post-menopausal female, screening for osteoporosis. Locomotive Crane Operator Helper/Model: ?? [employer] (S/N [id number]) CLINICAL INFORMATION: ??Current height: ??61 inches ? [...] Electronically signed by Werner Ladd M.D. AB: D: ??07/17/2021 3:37 PM T: ??07/17/2021 3:37 PM Report ID: [id number] Reading Location: ??[id number] Procedure Note Werner Ladd MD - 07/17/2021 EXAM DESCRIPTION: POLI BONE DENSITOMETRY AXIAL SKELETON REASON FOR STUDY: Post-menopausal female, screening for osteoporosis. Locomotive Crane Operator Helper/Model: ContentDJ (S/N [id number]) CLINICAL INFORMATION: Current height: 61 inches Maximum [...] by Werner Ladd M.D. AB: Report ID: [id number] Reading Location: [id number] IMPRESSION: 1. Low bone mass by WHO [...] BMI 40-49.9 (morbid obesity) (HCC) Morbid obesity Encounter for immunization Need for other specified prophylactic vaccination against single bacterial disease Postmenopausal Asymptomatic postmenopausal status (age-related) (natural) Postmenopausal Asymptomatic postmenopausal status (age-related) (natural) documented in this encounter Additional Health Concerns Assessment Noted Time PHQ-9 Depression Total Score: 0 08/30/20 19 3:00 PM HOME SUPPORT WORKER documented as of this encounter Care Teams General Labor Forklift Operator Relationship Specialty Start Date End Date Cate Patel MD [address] [place] [address] PCP - General Family Medicine 12/11/20 03/05/23 Liliya Rai MD [address] [phone] Consulting Physician Endocrinology 10/24/20 Vadim Browning MD [address] [place] [address] Consulting Physician General Surgery 03/22/21 Sarah Borges MD [address] [place] [address] Consulting Physician Endocrinology 03/22/21 documented as of this encounter
--- OUTSIDE RECORDS SUMMARY | 2024-09-21 04:18 | XMS_ITS | Encounter Summary ---
Author Organization [employer] Care Team Providers Care Property Master Name Role Phone Liliya Rai MD Unavailable Cate Patel MD Primary Care Provider [phone] Encounter Details Date Type Department Care Team (Latest Contact Info) Description 03/01/2021 Travel Social History Tobacco Use Types Packs/Day [...] have Coronavirus / COVID-19? 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
--- OUTSIDE RECORDS SUMMARY | 2024-09-21 04:18 | XMS_ITS | Encounter Summary ---
Author Organization [facility] Address [address] [place] [address] Phone Care Team Providers Care Cullet Trucker Name Role Phone Cate Patel MD Primary Care Provider [phone] Liliya Rai MD Unavailable Encounter Details Date Type Department Care Team (Late st Contact Info) Description 11/28/2020 Telephone [facility] - Primary Care - [address] [place] [address] Cate Patel MD [address] [place] [address] Social History Tobacco Use Types Packs/Day Years [...] COVID-19? No / Unsure 11/27/2020 11:02 AM MECHANICAL RESEARCH ENGINEER documented as of this encounter Miscellaneous Notes * Telephone Encounter - Cate Patel MD - 11/28/2020 4:44 PM CST Ordered. Thanks for pending. ANICAL RESEARCH ENGINEER * Telephone Encounter - Rosalba Black RN - 11/28/2020 10:40 AM MECHANICAL RESEARCH ENGINEER [facility] sleep center requests order for Covid swab prior to sleep study. Order pended to you. ANICAL RESEARCH ENGINEER documented in this encounter Plan of Treatment Not on file documented as of this encounter Results * SARS-COV-2 BY MOLECULAR (12/11/2020 9:29 AM MECHANICAL RESEARCH ENGINEER) SARSCOV2 NOT DETECTED (Referen ce Range for this test is Not Detected ) [facility] FAST DX 12/12/2020 8:53 AM MECHANICAL RESEARCH ENGINE[facility] [place]:This test was perfor med by a RT-PCR method. Other NASOPHARYNGEAL STRUCTURE / Unknown Non-Phlebotomy Collection / Unknown 12/11/2020 9:29 AM MECHANICAL RESEARCH ENGINEER 12/11/2020 12:06 PM MECHANICAL RESEARCH ENGINEER Narrative [facility] - 12/12/2020 8:53 AM MECHANICAL RESEARCH ENGINEER Authorized Fact Sheets about this test for providers and patients are available at: https://www.fda.gov/medical-devices/hcnjzdlkm-llkiqxcunp-avpskux-devices/emergen cy-us e-authorizations us Cate Patel MD MICROBIOLOGY - GENERAL ORDER [place] Final Result [facility] [address] [place] [address], [place] documented in this encounter Visit Diagnoses Diagnosis Encounter for preprocedure screening laboratory testing for COVID-19- Primary documented in this encounter Additional Health Concerns Assessment Noted Time PHQ-9 Depression Total Score: 0 08/30/20 3:00 PM MECHANICAL RESEARCH ENGINEER documented as of this encounter Care Teams Cullet Trucker Relationship Specialty Start Date End Date Cate Patel MD PCP - General Family Medicine 07/25/15 12/10/20 Liliya Rai MD [address] [id number] Consulting Physician Endocrinology 10/24/20 documented as of this encounter
--- OUTSIDE RECORDS SUMMARY | 2024-09-21 04:18 | XMS_ITS | Encounter Summary ---
Author Organization [facility] Address [address] [place] [address] Phone Care Team Providers Care Family Medicine Chair Name Role Phone Liliya Rai MD Unavailable Cate Patel MD Primary Care Provider [phone] Vadim Browning MD Unavailable Unavailable Sarah Borges MD Unavailable [phone] Reason for Visit * Auth/Cert Specialty Diagnoses / Procedures Referred By Contac t Referred To Contact Diagnoses GERD-GLOBUS SYNDROME Procedures EGD Referral ID Status Reason Start Date Expiration Date Visits Re quested Visits Authorized [id number] 1 1 Encounter Details Date Type Department Care Team (Late st Contact Info) Description 07/04/2021 10:00 AM CDT - 07/04/2021 10:30 AM CDT Surgery [facility] Lab [address] [place] [address] Teofilo Mccrary MD EGD-hiatal hernia-esophageal stricture-46F Zabala dilation-gastric body and antral biopsy Surgery Details Date/Time Status Location OR Service Patient Class Case Class Case Type Trauma Case? 07/04/2021 10:00 AM Posted [facility] GI 01 Gastroenterology [facility] Surgery Panel 1 Procedure LRB Anes Op Region Wound Class Comments EGD-hiatal hernia-esophageal stricture-46F Zabala dilation-gastric body and antral biopsy N/A Monitored Anesthesia Care Surgeon Surgeon Role Service Panel Teofilo Mccrary MD Primary Gastroenterology 1 Special Needs 07/04 - GERD Vaccinated-no proof documented in this encounter Social History Tobacco Use Types Packs/Day Years [...] Sign Reading Time Taken Comments Blood Pressure 112/68 07/04/2021 10:22 AM CDT Pulse 72 07/04/2021 10:22 AM CDT Temperature 36 ??C (96.8 ??F) 07/04/2021 8:59 AM CDT Respiratory Rate 18 07/04/2021 10:22 AM CDT Oxygen Saturation 96% 07/04/2021 10:22 AM CDT Inhaled Oxygen Concentration - - Weight 95.3 kg (210 lb) 06/20/2021 7:00 AM CDT Height 157.5 cm (5' 2 ) 06/20/2021 7:00 AM CDT Body Mass Index 38.41 06/20/2021 7:00 AM CDT documented in this encounter Discharge Instructions * Discharge Instructions* Ni Flores RN - 07/04/2021 10:15 AM CDT YOU HAD AN EGD TODAY. DR. MCCRARY FOUND: Procedure Performed: ?? EGD WITH ESOPHAGEAL DILATATION AND BIOPSIES OF ANTRUM PENDING, ?? Recommendations: ?? TAKE OMRPRAZOLE 40 MG 1/2 HOURBEFORE EVENING MEAL DO NOT DRIVE, WORK, OPERATE MACHINERY OR USE POWER TOOLS UNTIL DAY AFTER PROCEDURE. NO ALCOHOL BEVERAGES TODAY FOLLOWING DAY: RETURN TO FULL ACTIVITY, INCLUDING WORK, UNLESS INSTRUCTED OTHERWISE. Call doctor's office ([phone]) or go to Emergency room for: Difficulty Breathing, Headache Or Visual Disturbances Persistent Dizziness Or Light-Headedness Persistent Nausea and Vomiting Temperature greater then 100.0 Significant abdominal pain, chest pain, or bleeding. Here at [facility] we strive to provide excellent care to each of our patients, along with an easy transition between departments, starting with registration until discharge. Through our excellent care and services, we hope that you would recommend our services to your family and friends. You will receive a follow-up phone call in 24-48 hours after your procedure to see how you are doing. This gives our patients the opportunity to recognize any members from our team, from housekeepers, to nurses, to physicians, that you felt gave you excellent service as well as any suggestions for improvement. We hope you found our facility clean and our mission partners courteous. You may also receiving a survey in the mail. We would appreciate it if you could complete the form and return it. A self addressed pre-paid envelope is provided. THANK YOU FOR CHOOSING [facility]. * Attachments The following attachments cannot be sent through Care Everywhere. * Gastroesophageal Reflux Disease (GERD), Discharge Instructions (South African) * Dilation, Esophageal (South African) documented in this encounter Medications at Time of Discharge [...] daily. 3 documented as of this encounter H&P Notes * Teofilo Mccrary MD - 07/04/2021 9:52 AM CDT I have reviewed Silvia Boss History and Physical, re-examined her, and no change has occurred in her condition since the H&P was completed. I have explained the risks, benefits, and alternatives of the procedure to the patient and family. They wish to proceed with procedure. Teofilo Mccrary MD 07/04/2021 9:52 AM CDT * Teoflio Mccrary MD - 07/03/2021 5:58 PM CDT [facility] GASTROENTEROLOGY CONSULT/H&P NAME: Silvia Boss DATE 1945 DATE OF CONSULT: 07/03/2021 Very pleasant patient was seen at the request of DR. CATE PATEL and with the patient's permission. The patient was examined and the chart was reviewed. HISTORY: 76 YEAR OLD FEMALE REFERRED FOR EGD. Patient has JUAN MANUEL , WITH H/O CKD AND HIATAL HERNIA thatcontributes to it. HER LAST EGD WAS ON 06/26/18 AND LAST COLON ON 12/06. SHE NEEDS HER ESOPHAGUS DILATED. ALSO NEEDS A RIGHT SHOULDER AND RIGHT REPLACEMENT. ALLERGIES: No Known Allergies MEDICATIONS No medications prior to admission. PROBLEM LIST Patient Active Problem List Diagnosis ??? HTN (hypertension) ??? Depression ??? MARY on CPAP ??? Iron deficiency anemia due to chronic blood loss ??? Hypothyroidism ??? Gastroesophageal reflux disease ??? Thyroid nodule ??? 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 Hyperlipidemia ??? Spinal stenosis of lumbar region ??? Osteoarthritis of multiple joints ??? Hiatal hernia ??? Chronic fatigue ??? Migraine without aura and without status migrainosus, not intractable ??? Anxiety disorder ??? CKD (chronic kidney disease) stage 1, GFR 90 ml/min or greater ??? Pituitary macroadenoma (HCC) ??? IFG (impaired fasting glucose) ??? Chronic left-sided headaches ??? Benign paroxysmal positional vertigo MEDICAL HISTORY: Past Medical History Positives Diagnosis Date ??? [...] (HCC) Radiation tablets ??? Vitamin D deficiency SURGICAL HISTORY: Past Surgical History: Procedure Laterality Date ??? [...] Wave Lithotripsy RIGHT-; Surgeon: Neeta Edwards MD; Location:[facility]; Service: ??? OVARY REMOVAL ??? LAKHWINDER AND BSO Fibroids ??? TOTAL KNEE ARTHROPLASTY Bilateral ??? UPPER GASTROINTESTINAL ENDOSCOPY N/A 10/27/2015 Procedure: EGDcol plus dilatation with 54fr. zabala; Surgeon: Talha Catherine DO; Location: [facility] GI [facility]; Service: ??? UPPER GASTROINTESTINAL ENDOSCOPY N/A 06/26/2018 Procedure: EGD: yee test, mild esophageal dysmotility, hiatal hernia, dilation 54 fr zabala; Surgeon: Talha Catherine DO; Location: [facility]; Service: Gastroenterology FAMILY HISTORY: Family History Problem Relation Age of Onset ??? Heart Attack Mother ??? Diabetes Mother ??? Hypertension Mother ??? Stroke Mother ??? Arthritis Mother ??? Hypertension Father ??? Emphysema Father ??? Arthritis Father ??? Diabetes Brother x 2 ??? Hypertension Brother ??? Heart Disease Brother x 2 ??? Hypertension Brother ??? Hypertension Sister ??? Hypertension Sister ??? Hypertension Sister ??? Hypertension Sister SOCIAL HISTORY: Social History Socioeconomic History ??? Marital status: [...] Social History Narrative ??? Not on file Social Determinants of Health Social determinant risk not applicable to this patient. OBSTETRICS HISTORY: OB History 2 Para 2 Term AB Living SAB TAB Ectopic Multiple Live Births REVIEW OF RESULTS: LAB REVIEWED: Lab Results Component Value Date SODIUM 135 (L) 06/18/2021 POTASSIUM 4.0 06/18/2021 CHLORIDE 102 06/18/2021 CO2VEN 20 (L) 06/18/2021 ANIONGAP 17.0 06/18/2021 GLUCOSE 102 (H) 06/18/2021 BUN 29 (H) 06/18/2021 CREATININE 1.24 (H) 06/18/2021 BCRATIO8 23 (H) 06/18/2021 TOTALPROTEIN 7.1 06/18/2021 ALBUMIN 4.5 06/18/2021 AGRATIO 1.2 12/30/2016 CALCIUM 9.3 06/18/2021 TBIL 0.3 06/18/2021 SGOTAST 11 06/18/2021 SGPTALT 7 06/18/2021 ALKALINEPHO 68 06/18/2021 GFRNA 42 (L) 06/18/2021 GFRA 51 (L) 06/18/2021 Lab Results Component Value Date SODIUM 135 (L) 06/18/2021 POTASSIUM 4.0 06/18/2021 CHLORIDE 102 06/18/2021 CO2VEN 20 (L) 06/18/2021 ANIONGAP 17.0 06/18/2021 GLUCOSE 102 (H) 06/18/2021 BUN 29 (H) 06/18/2021 CREATININE 1.24 (H) 06/18/2021 BCRATIO8 23 (H) 06/18/2021 TOTALPROTEIN 7.1 06/18/2021 ALBUMIN 4.5 06/18/2021 AGRATIO 1.2 12/30/2016 CALCIUM 9.3 06/18/2021 TBIL 0.3 06/18/2021 SGOTAST 11 06/18/2021 SGPTALT 7 06/18/2021 ALKALINEPHO 68 06/18/2021 GFRNA 42 (L) 06/18/2021 GFRA 51 (L) 06/18/2021 T-1 No results for input(s): ALBUMIN, TBIL, BILIRUBIN, ALKALINEPHO, SGOTAST, SGPTALT, TOTALPROTEIN in the last 72 hours. Lab Results Component Value Date WBC 9.28 06/18/2021 WBC 10.20 02/22/2021 WBC 12.43 (H) 12/11/2020 HEMOGLOBIN 12.1 06/18/2021 HEMOGLOBIN 12.1 02/22/2021 HEMOGLOBIN 11.8 (L) 12/11/2020 HEMATOCRIT 37.1 06/18/2021 HEMATOCRIT 38.9 02/22/2021 HEMATOCRIT 37.7 12/11/2020 PLATELETCNT 306 06/18/2021 PLATELETCNT 288 02/22/2021 PLATELETCNT 279 12/11/2020 MCV 96.1 (H) 06/18/2021 MCV 100.0 (H) 02/22/2021 MCV 100.8 (H) 12/11/2020 LAST IMAGING: POLI SCREENING BILATERAL DIGITAL W CAD W YAYA - POLI SCREENING BILATERAL DIGITAL W CAD [...] to exams dated: 04/18/2018, 07/22/2016, and 01/02/2015 [facility]. BREAST TISSUE:There are scattered fibroglandular densities [...] exam. Electronically signed by: Mele gupta/giovanny:04/23/2020 15:55:32 Machining Supervisor: Fernanda SYED(Rosetta)(M), [facility] letter sent: Normal Exam Reading location: [facility] BI-RADS: 2 Benign EXAMINATION Ht 5' 2 (1.575 m) Wt 210 lb (95.3 kg) BMI 38.41 kg/m?? General appearance: alert, no distress, cooperative, appears stated age. HEENT: No scleral icterus Heart: regular rate and rhythm, S1, S2 normal, no murmur, click, rub or gallop. Lungs: no acute distress, clear to auscultation bilaterally anterior and posterior, good effort. Abdomen: soft, non-tender. Bowel sounds normal. No hepatosplenomegaly. No abdominal tenderness. Extremities: extremities normal, atraumatic, no cyanosis or edema, negative homans/samantha Skin: Skin color, texture, turgor normal. No rashes or lesions. Lymph nodes: Cervical nodes normal., Supraclavicular nodes normal. Neurologic: Alert and oriented X 3. No focal deficits. CRISTAL: No significant joint tenderness and swelling. No muscle atrophy. Mental status: Orientation X3. Affect was appropriate. Rectal exam: Deferred. IMPRESSION: JUAN MANUEL RECOMMENDATIONS: EGD WITH ESOPHAGEAL DILATATION. Thank you for much for the opportunity to participate in the care of this patient. Please do not hesitate to contact us if we can be of any further assistance. Documentation for this visit on 07/03/21 was completed using a template. I have seen and examined the patient. Everything documented was personally performed at this visit with the necessary additions, deletions and changes made as appropriate. documented in this encounter OR Notes * OR Surgeon - Teofilo Mccrary MD - 07/04/2021 10:04 AM CDT ESOPHAGOGASTRODUODENOSCOPY PROCEDURE NOTE Date of Procedure: 07/04/2021 History and Pre-operative Diagnosis: H/O OF PHARYNGEAL-ESOPHAGEAL DYSPHAGIA. Post-operative Diagnosis: Stricture at EG JUNCTION ULCERATED AT 36 CM FROM INCISSORSDILATED WITH NUMBER [id number] MICHAEL. ANTRAL BIOPSIES PENDING/ Findings: PER ABOVE NOTES. Anesthesia: MAC Complications: No immediate. Procedure Performed: EGD WITH ESOPHAGEAL DILATATION AND BIOPSIES OF ANTRUM PENDING, Recommendations: TAKE OMRPRAZOLE 40 MG 1/2 HOURBEFORE EVENING MEAL Specimens: ID Type Source Tests Collected by Time A : gastric body and antral biopsy Tissue Stomach PATHOLOGY SURGICAL Teofilo Mccrary MD 07/04/2021 1001 EBL: less than 10ml Procedure Details: Pre-Procedure: After discussion of the risks, benefits, and alternatives to the procedure, informedconsent was obtained from patient/power of assistant prosecuting attorney/caregiver. Risks discussed included, but were not limited to infection, perforation, hemorrhage, arrhythmia, hypersensitivity to sedatives, missed c ancer, surgery, blood transfusion and . Based on the pre-procedure assessment, including review of the patient's medical history, medications, allergies, and review of systems, he had been deemed to be an appropriate candidate for moderate sedation. The patient understood procedure and all ques tions were answered. A physician-directed time out was held to confirm patient and procedure. The patient was brought to the endoscopy suite after an overnight fast and was placed in the left lateral decubitus position, sedated by the Department of Anesthesiology. Using the Olympus video endoscope inserted under direct vision and without difficulty in to the esophagus. Detailed examination of the esophagus was carried out and the GE junction identified. Scope was then advanced to the second portion of the duodenum unless otherwise specified. The endoscope was withdrawn back into the stomach. The stomach was examined in the forward and retroflexed views. The scope was withdrawn from the patient. The patient tolerated the procedure well, without any immediate complications. Documentation for this visit on 07/04/21 was completed using a template. I have seen and examined the patient. Everything documented was personally performed at this visit with the necessary additions, deletions and changes made as appropriate. REFERRING PHYSICIAN: Teofilo Mccrary MD Surgeon: Surgeon(s) and Role: * Teofilo Mccrary MD - Primary Primary Care Physician: Cate Patel MD documented in this encounter Miscellaneous Notes * Plan of Care - Ni Flores RN - 07/04/2021 10:13 AM CDT Problem: Adult Inpatient Plan of Care Goal: Plan of Care Review 07/04/2021 1013 by Ni Flores RN Outcome: Outcome Achieved 07/04/2021 0849 by Ni Flores RN Outcome: Ongoing (see interventions/notes) Flowsheets (Taken 07/04/2021 0849) Plan of Care Reviewed With: patient Outcome Summary: Ready for procedure Today's Goal: to go home Goal: Absence of Hospital-Acquired Illness or Injury 07/04/2021 1013 by Ni Flores RN Outcome: Outcome Achieved 07/04/2021 0849 by Ni Flores RN Outcome: Ongoing (see interventions/notes) Goal: Optimal Comfort and Wellbeing 07/04/2021 1013 by Ni Flores RN Outcome: Outcome Achieved 07/04/2021 0849 by Ni Flores RN Outcome: Ongoing (see interventions/notes) Goal: Readiness for Transition of Care 07/04/2021 1013 by Ni Flores RN Outcome: Outcome Achieved 07/04/2021 0849 by Ni Flores RN Outcome: Ongoing (see interventions/notes) Problem: Ongoing Anesthesia Effects (Surgery Nonspecified) Goal: Anesthesia/Sedation Recovery 07/04/2021 1013 by Ni Flores RN Outcome: Outcome Achieved 07/04/2021 0849 by Ni Flores RN Outcome: Ongoing (see interventions/notes) Intervention: Optimize Anesthesia Recovery Flowsheets (Taken 07/04/2021 1013) Patient Tolerance (IS): good Outcome Anesthesia/Sedation Recovery: criteria met for discharge Note: Ready for discharge Problem: Pain (Surgery Nonspecified) Goal: Acceptable Pain Control 07/04/2021 1013 by Ni Flores RN Outcome: Outcome Achieved 07/04/2021 0849 by Ni Flores RN Outcome: Ongoing (see interventions/notes) * Interdisciplinary - Ni Flores RN - 07/04/2021 8:50 AM CDT Rapid covid swab administered and pending * Plan of Care - Ni Flores RN - 07/04/2021 8:49 AM CDT Problem: Adult Inpatient Plan of Care Goal: Plan of Care Review Outcome: Ongoing (see interventions/notes) Flowsheets (Taken 07/04/2021 0849) Plan of Care Reviewed With: patient Outcome Summary: Ready for procedure Today's Goal: to go home Goal: Absence of Hospital-Acquired Illness or Injury Outcome: Ongoing (see interventions/notes) Goal: Optimal Comfort and Wellbeing Outcome: Ongoing (see interventions/notes) Goal: Readiness for Transition of Care Outcome: Ongoing (see interventions/notes) Problem: Ongoing Anesthesia Effects (Surgery Nonspecified) Goal: Anesthesia/Sedation Recovery Outcome: Ongoing (see interventions/notes) Problem: Pain (Surgery Nonspecified) Goal: Acceptable Pain Control Outcome: Ongoing (see interventions/notes) Problem: Postoperative Nausea and Vomiting (Surgery Nonspecified) Goal: Nausea and Vomiting Relief Outcome: Ongoing (see interventions/notes) * Interdisciplinary - Marian Plascencia RN - 06/20/2021 8:41 AM CDT [facility] GI TEACHING Patient Name: Silvia Boss : 1945 [facility]#: [id number] Person Educated Patient Ready to Learn Yes Teaching Method Phone Fully vaccinated per patients records. No covid test required. Recomended to wear mask and social distance. The Day of Procedure: Call your physician if your physical condition changes (cold, fever, flu). Do not come to the hospital without first calling your physician. Follow your surgeon's instructions regarding your diet, bowel prep, and medications if applicable. If your have any questions, please contact your surgeon's office. No alcohol and no smoking for 24 hrs prior to procedure if applicable. Wear comfortable, loose fitting clothing. Instruction to leave all jewelry at home including wedding/engagement rings or any body piercing jewelry. Leave all valuables at home. Children ages under 16 must be accompanied by a parent or legal guardian in the hospital at all times. Detailed instructions given for arrival location and parking. Arrive for your procedure as instructed by the [facility]. Go to Registration the morning of the procedure to check in. Arrange for a responsible person to accompany you and drive you home following your procedure. Follow directions regarding which medications to take or hold. It is very important to follow directions on diabetic medication or blood thinners from your surgeon's office. When you come to the hospital only 1 adult over the age of 16 will be allowed to accompany you to the [facility]. No children under the age of 16 will be allowed in the [facility] unless they are the patient. If the patient chooses to bring their children under the age of 16, an adult must accompany those children in the surgery waiting room and cannot leave them unattended. During the flu season: refer to the visitation restriction guidelines implemented during that season if applicable. Fall Prevention Teaching The Day of Surgery: ?? Your safety while you are in the hospital is very important to us. Following surgery, you might be at increased risk for falling for several reasons: ??? -The hospital environment is unfamiliar. It???s not the same as being at home ??? -You may be weaker than you realize. ??? -You may be connected to lines or equipment that can cause you to trip. ??? -You may be on medications that make you drowsy or dizzy. We know this can happen especially with pain medication and anesthesia. ??? We want to partner with you in the hospital to make sure you are safe ??? -Please do not feel hesitant to ask for help while in the hospital. You will -need extra help until you get stronger especially with walking and using the bathroom. ??? -Pay close attention to what the doctors and nurses tell you about your risk of falling. ??? -A fall can mean a longer hospital stay. Also, injuries from a fall can affect your health for the rest of your life. ??? Some things the nurses may do to keep you safe are: ??? -Have you use the call light for help whenever you get out of bed. ??? -Wear non-skid slippers to keep you from slipping on the floors ??? -Use a special belt that wraps around your waist so we can help steady you when you walk ??? -Activate an alarm on your bed so we know if you are getting up in case you forget to use your call light ??? -Stay in the bathroom with you in case you become dizzy or light headed Response to Teaching: Verbalizes Understanding Patient assessed for school speech language pathologist during the preop interview and appropriate interventions taken if applicable. documented in this encounter Plan of Treatment Not on file documented as of this encounter Procedures Procedure Name Priority Date/Time Associated Diagnosis Comments PATHOLOGY SURGICAL Routine 07/04/2021 10:01 AM CDT EGD 07/04/2021 9:51 AM CDT EGD-hiatal hernia-esophageal stricture-46F Zabala dilation-gastric body and antral biopsy Special Needs 07/04 - GERD Vaccinated-no proof SARS-COV-2 BY MOLECULAR STAT 07/04/2021 8:50 AM CDT documented in this encounter Results * Pathology Surgical (07/04/2021 10:01 AM CDT) Case Report Surgical Pathology Report ? Case: [id number] ? Authorizing Provider: ??Teofilo Mccrary MD ?Collected: ? 07/04/2021 10:01 AM ? Ordering Location: ? [facility] ? Received: ?07/04/2021 11:08 AM ? [facility] ? Lab Main ? Pathologist: ? Madelyn Fontanez, ? MD ? Specimen: ?Stomach, gastric body and antral biopsy ? 07/06/2021 9:41 AM CDT [facility] FINAL DIAGNOSIS Stomach, Body and Antrum, Biopsy: - Reactive gastropathy. 07/06/2021 9:41 AM CDT [facility] Pre-Operative Diagnosis GERD-Globus Syndrome 07/06/2021 9:41 AM CDT [facility] Gross Description A. gastric body and antral biopsy The specimen presents in a single formalin container for gross and microscopic examination, labeled with the patient's name, Silvia Boss, and designated gastric body and antral biopsy. The specimen consists of six pieces of light ramirez tissue measuring a fraction of a millimeter up to 0.4 cm in greatest dimension. All submitted cassette A1. KS/sb 07/06/2021 9:41 AM CDT [facility] Microscopic Description 3 H&e. Sections show fragments of predominantly antral-type gastric mucosa as well as very scant fundic-type mucosa. All fragments demonstrate reactive epithelial changes including mucin depletion and tortuosity of the superficial gastric pits. No significant acute inflammation, intestinal metaplasia, or epithelial atypia is identified. SES/sb 07/06/2021 9:41 AM CDT [facility] Tissue STOMACH STRUCTURE / Unknown 07/04/2021 10:01 AM CDT 07/04/2021 11:08 AM CDT us Teofilo Mccrary MD PATHOLOGY/CYTOLOGY ORDERABLE S Final Result [facility] [place] [address] * SARS-COV-2 BY MOLECULAR (07/04/2021 8:50 AM CDT) SARSCOV2 NOT DETECTED (Referenc e Range for this test is Not Detected) [facility] CRUZ ID NOW 07/04/2021 9:42 AM CDT [facility] Comment:This test was perfor med by a MOLECULAR, NON-PCR method Other NASOPHARYNGEAL STRUCTURE / Unknown Non-Phlebotomy Collection / Unknown 07/04/2021 8:50 AM CDT 07/04/2021 8:59 AM CDT Narrative [facility] - 07/04/2021 9:42 AM CDT This test has been authorized by the FDA under an Emergency Use Authorization (EUA) only. Negative results should be treated as presumptive and, if inconsistent with clinical signs and symptoms or necessary for patient management, the patient should be tested with an alternative molecular assay. Negative results do not preclude SARS-CoV-2 infection or any other respiratory pathogen. Additional information for Clinicians can be found at: https://www.fda.gov/media/783698/download Additional information for Patients can be found at: https://www.fda.gov/media/259745/download us Teofilo Mccrary MD MICROBIOLOGY - GENERAL ORDER SIERRA Final Result [facility] [place] [address] documented in this encounter Visit Diagnoses Not on filedocumented in this encounter Administered Medications Inactive Administered Medications - up to 3 most recent administrations Medication Order MAR Action Action Date Dose Rate Site lactated ringers infusion at 20 mL/hr, Intravenous, CONTINUOUS, Starting on Fri07/04/21 at 0900, Until Fri07/04/21 at 1245, PRE-OP (SURGERY) New Bag 07/04/2021 9:00 AM CDT 20 mL/hr 20 mL/hr documented in this encounter Active and Recently Administered Medications Times are shown in CDT. Continuous Medication Order 07/02/2021 07/03/2021 07/04/2021 lactated ringers infusion at 20 mL/hr, Intravenous, CONTINUOUS, Starting on Fri07/04/21 at 0900, Until Fri07/04/21 at 1245, PRE-OP (SURGERY) 0900 (New Bag - Prov ider: Ni Flores RN)1006 (Anesthesia Volume Adjustment - Provider: Farooq Middleton APN, THERMITE WELDER)1018 (Stopped - Provider: Ni Flores RN) documented in this encounter Additional Health Concerns Assessment Noted Time PHQ-9 Depression Total Score: 0 08/30/20 19 3:00 PM SEAM RUBBER documented as of this encounter Care Teams Family Medicine Chair Relationship Specialty Start Date End Date Cate Patel MD [address] [place] [address] PCP - General Family Medicine 12/11/20 03/05/23 Liliya Rai MD #[address] [facility] [address] [address] [address] Consulting Physician Endocrinology 10/24/20 Vadim Browning MD [address] [place] [address] Consulting Physician General Surgery 03/22/21 Sarah Borges MD [address] [place] [address] Consulting Physician Endocrinology 03/22/21 documented as of this encounter
--- OUTSIDE RECORDS SUMMARY | 2024-09-21 04:18 | XMS_ITS | Encounter Summary ---
Author Organization [employer] Care Team Providers Care Fashion Marketer Name Role Phone Liliya Rai MD Unavailable Cate Patel MD Primary Care Provider [phone] Vadim Browning MD Unavailable Unavailable Sarah Borges MD Unavailable [phone] Encounter Details Date Type Department Care Team (Latest Contact Info) Description 06/28/2021 Travel Social History Tobacco Use Types Packs/Day [...] Total Score: 0 08/30/20 19 3:00 PM METALLURGIST PROCESS documented as of this encounter Care Teams Fashion Marketer Relationship Specialty Start Date End Date Cate Patel MD [address] [place] [address] PCP - General Family Medicine 12/11/20 03/05/23 Liliya Rai MD #[address] [address] Consulting Physician Endocrinology 10/24/20 Vadim Browning MD [address] [place] [address] Consulting Physician General Surgery 03/22/21 Sarah Borges MD [address] [place] [address] Consulting Physician Endocrinology 03/22/21 documented as of this encounter
--- OUTSIDE RECORDS SUMMARY | 2024-09-21 04:18 | XMS_ITS | Encounter Summary ---
Author Organization [facility] Address [address] [place] [address] Phone Care Team Providers Care Stretcher And Drier Name Role Phone Liliya Rai MD Unavailable Cate Patel MD Primary Care Provider Vadim Browning MD Unavailable Unavailable Sarah Borges MD Unavailable +- [phone] Encounter Details Date Type Department Care Team (Late st Contact Info) Description 05/07/2021 [facility] Ad[facility] [address] [place] [id number] Sarah Borges MD [address] [address] Pituitary macroadenoma (HCC) (Primary Dx) Social History Tobacco Use Types Packs/Day Years [...] documented as of this encounter Results * CORTISOL (05/07/2021 10:09 AM CDT) CORTISOL 9 mcg/dL 05/07/2021 11:43 AM CDT [facility] Comment: NORMAL REFERENCE RANGE: 6AM-10AM: 6.02-18.4 mcg/dL 4PM-8PM: 2.68-10.5 mcg/dL Blood Venipuncture / Unknown 05/07/2021 10:09 AM CDT 05/07/2021 11:09 AM CDT Sarah Borges MD CHEMISTRY ORDERABLES Final Result [facility] [address] [place] [address] documented in this encounter Visit Diagnoses Diagnosis 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) documented in this encounter Additional Health Concerns Assessment Noted Time PHQ-9 Depression Total Score: 0 08/30/20 19 3:00 PM PERSONAL DEVELOPMENT EDUCATOR documented as of this encounter Care Teams Stretcher And Drier Relationship Specialty Start Date End Date Cate Patel MD [address] [place] [address] PCP - General Family Medicine 12/11/20 03/05/23 [facility] [address] Consulting Physician Endocrinology 10/24/20 Vadim Browning MD [address] [place] [address] Consulting Physician General Surgery 03/22/21 Sarah Borges MD [address] [place] [address] Consulting Physician Endocrinology 03/22/21 documented as of this encounter
--- OUTSIDE RECORDS SUMMARY | 2024-09-21 04:18 | XMS_ITS | Encounter Summary ---
Author Organization [facility] Care Team Providers Care Paving Rammer Name Role Phone Liliya Rai MD Unavailable Cate Patel MD Primary Care Provider [phone] Vadim Browning MD Unavailable Unavailable Sarah Borges MD Unavailable [phone] Encounter Details Date Type Department Care Team (Latest Contact Info) Description 07/17/2021 Travel Social History Tobacco Use Types Packs/Day [...] Total Score: 0 08/30/20 19 3:00 PM MOTOR COACH BUS DRIVER documented as of this encounter Care Teams Paving Rammer Relationship Specialty Start Date End Date Cate Patel MD [address] [place] [address] PCP - General Family Medicine 12/11/20 03/05/23 Liliya Rai MD #[address] [address] Consulting Physician Endocrinology 10/24/20 Vadim Browning MD [address] [place] [address] Consulting Physician General Surgery 03/22/21 Sarah Borges MD [address] [place] [address] Consulting Physician Endocrinology 03/22/21 documented as of this encounter
--- OUTSIDE RECORDS SUMMARY | 2024-09-21 04:18 | XMS_ITS | Encounter Summary ---
Author Organization [facility] Address [address] [place] [address] Phone Care Team Providers Care Manager Professional Development Name Role Phone Liliya Rai MD Unavailable Cate Patel MD Primary Care Provider [phone] Vadim Browning MD Unavailable Unavailable Sarah Borges MD Unavailable [phone] Reason for Visit * Reason Onset Date Comments Results 03/29/2021 Encounter Details Date Type Department Care Team (Late st Contact Info) Description 03/29/2021 Telephone [facility] [address] [place] [address] Cate Patel MD [address] [place] [address] Results Social History Tobacco Use Types Packs/Day [...] Telephone Encounter - Cate Patel MD - 04/04/2021 10:03 PM CDT Noted. * Telephone Encounter - Estefany Tijerina RN - 04/04/2021 9:31 AM CDT This RN contacted by patient04/04/2021 to review normal/abnormal test results. Verbalizes understanding. States that she has been losing weight, does not drink alcohol, has ferritin and iron levels checked regularly and monitored by Dr. Anthony and does not want to repeat her sleep study. Please advise if you have any further recommendations. * Telephone Encounter - Rosalba Black RN - 04/04/2021 8:52 AM CDT Attempted to call patient with results, no answer at this time. Left message to call back. * Telephone Encounter - Cate Patel MD - 04/02/2021 9:07 PM CDT Please inform patient, ?? This sleep study did not reveal clinically significant obstructive sleep apnea. repeat testing is recommended ?? If she has symptoms of RLS - check iron studies, serum ferritin. Please pend order if patient agrees. ?? Obtain and maintain ideal body weight. ?? Avoid alcohol and other MECHATRONICS ENGINEER depressants. * Telephone Encounter - Vira Singer RN - 03/29/2021 1:57 PM CDT Patient calling to follow up on sleep study results Reports she was never contacted with results and forgot to mention at her last OV. Split night PSG reports scanned into chart 12/14/20: Reports: Summary/Comments: The patient did not meet criteria for CPAP. The patient used the restroom twice during the night. The patient slept supine while slightly elevated all night due to back pain. The patient had increased apnea while REM supine with an AHI of 13.0. The patient???s overall AHI was 2.7. Advised unable to see PCP recommendations at this time. Will check w/ provider for recommendations based off results and staff will call her back to go over. Patient agreeable to plan Please review and advise documented in this encounter Plan of Treatment Not on file documented as of this encounter Visit Diagnoses Not on filedocumented in this encounter Additional Health Concerns Assessment Noted Time PHQ-9 Depression Total Score: 0 08/30/20 19 3:00 PM CULINARY INSTRUCTOR documented as of this encounter Care Teams Manager Professional Development Relationship Specialty Start Date End Date Cate Patel MD [address] [place] [address] PCP - General Family Medicine 12/11/20 03/05/23 Liliya Rai MD #[address] [address] Consulting Physician Endocrinology 10/24/20 Vadim Browning MD [address] [place] [address] Consulting Physician General Surgery 03/22/21 Sarah Borges MD [address] [place] [address] Consulting Physician Endocrinology 03/22/21 documented as of this encounter
--- OUTSIDE RECORDS SUMMARY | 2024-09-21 04:18 | XMS_ITS | Encounter Summary ---
Author Organization [facility] Address [address] [place] [address] Phone Care Team Providers Care Boiler Shop Supervisor Name Role Phone Cate Patel MD Primary Care Provider [phone] Encounter Details Date Type Department Care Team (Late st Contact Info) Description 10/23/2020 10:20 AM EDUCATION DEPARTMENT CHAIR Lab [facility] - Primary Care - [address] [address] [facility] Discharge Disposition: Discharged to home or Selfcare [...] COVID-19? No / Unsure 10/23/2020 10:04 AM EDUCATION DEPARTMENT CHAIR documented as of this encounter Progress Notes * Mile Beauchamp RMA - 10/23/2020 10:20 AM CST Silvia presents for lab draw per order of Dr. Esposito dated 10/23/20. Specimen collected from left antecubital without incident. sah ATION DEPARTMENT CHAIR documented in this encounter Plan of Treatment Not on file documented as of this encounter Procedures Procedure Name Priority Date/Time Associated Diagnosis Comments CBC WITH AUTO DIFFERENTIAL Routine 10/23/2020 10:10 AM EDUCATION DEPARTMENT CHAIR Essential hypertension THYROXINE (T4) FREE Routine 10/23/2020 1 0:10 AM EDUCATION DEPARTMENT CHAIR Essential hypertension THYROID STIMULATING HORMONE (TSH) Routine 10/23/2020 10:10 AM EDUCATION DEPARTMENT CHAIR Essential hypertension LIPID PANEL Routine 10/23/2020 10:10 AM EDUCATION DEPARTMENT CHAIR Essential hypertension CMP (COMPREHENSIVE METABOLIC PANEL) Routine 10/23/2020 10:10 AM EDUCATION DEPARTMENT CHAIR Essential hypertension COMPLETE BLOOD COUNT (CBC) WITH DIFF Routine 10/23/2020 10:10 AM EDUCATION DEPARTMENT CHAIR Essential hypertension documented in this encounter Results * (ABNORMAL) CBC WITH AUTO DIFFERENTIAL (10/23/2020 10:10 AM EDUCATION DEPARTMENT CHAIR) WBC 6.91 4.00 - 12.00 10(3)/mcL 10/23/2020 12:21 PM EDUCATION DEPARTMENT CHAIR [facility] RBC 3.79(L) 3.80 - 5.30 10(6)/mcL 10/23/2020 12:21 PM EDUCATION DEPARTMENT CHAIR [facility] HEMOGLOBIN (HGB) 11.7(L) 12.0 - 15.8 g/dL 10/23/2020 12:21 PM EDUCATION DEPARTMENT CHAIR [facility] HEMATOCRIT (HCT) 37.6 36.0 - 47.0 % 10/23/2020 12:21 PM EDUCATION DEPARTMENT CHAIR [facility] MCV 99.2(H) 82.0 - 96.0 fL 10/23/2020 12:21 PM [facility] MCH 30.9 26.0 - 34.0 pg 10/23/2020 12:21 PM [facility] MCHC 31.1 31.0 - 36.0 g/dL 10/23/2020 12:21 PM [facility] PLATELET COUNT 264 140 - 440 10(3)/[facility] 10/23/2020 12:21 PM [facility] RDW 14.7 11.8 - 15.5 % 10/23/2020 12:21 PM [facility] MPV 10.4 9.7 - 12.4 fL 10/23/2020 12:21 PM [facility] NEUTROPHILS 73.3(H) 47.0 - 73.0 % 10/23/2020 12:21 PM [facility] LYMPHOCYTES 14.2(L) 18.0 - 42.0 % 10/23/2020 12:21 PM [facility] MONOCYTES 9.1 4.0 - 12.0 % 10/23/2020 12:21 PM [facility] EOSINOPHILS 2.5 0.0 - 5.0 % 10/23/2020 12:21 PM [facility] BASOPHILS 0.9 0.0 - 1.0 % 10/23/2020 12:21 PM [facility] ABSOLUTE NEUTROPHILS 5.07 1.60 - 7.70 10(3)/mcL 10/23/2020 12:21 PM [facility] ABSOLUTE LYMPHOCYTES 0.98(L) 1.30 - 3.20 10(3)/mcL 10/23/2020 12:21 PM [facility] ABSOLUTE MONOCYTES 0.63 0.20 - 1.00 10(3)/mcL 10/23/2020 12:21 PM [facility] ABSOLUTE EOSINOPHIL 0.17 0.00 - 0.40 10(3)/mcL 10/23/2020 12:21 PM [facility] ABSOLUTE BASOPHILS 0.06 0.00 - 0.10 10(3)/mcL 10/23/2020 12:21 PM EDUCATION DEPARTMENT CHAIR [facility] NRBC PER 100 WBC 0 10/23/19 12:21 PM EDUCATION DEPARTMENT CHAIR [facility] Blood Venipuncture / Unknown 10/23/2020 10:10 AM EDUCATION DEPARTMENT CHAIR 10/23/2020 10:10 AM EDUCATION DEPARTMENT CHAIR us Cate Patel MD HEMATOLOGY ORDERABLES Final Result [facility] [address] [place] [address] * THYROXINE (T4) FREE (10/23/2020 10:10 AM EDUCATION DEPARTMENT CHAIR) T4 FREE 1.5 0.9 - 1.7 ng/dL 10/23/2020 1:30 PM EDUCATION DEPARTMENT CHAIR [facility] Blood Venipuncture / Unknown 10/23/2020 10:10 AM EDUCATION DEPARTMENT CHAIR 10/23/2020 10:10 AM EDUCATION DEPARTMENT CHAIR us Cate Patel MD CHEMISTRY ORDERABLES Final R esult Performing Organization Address City/[facility]/ZIP Co de Phone Number [facility] [address] [place] [address] * THYROID STIMULATING HORMONE (TSH) (10/23/2020 10:10 AM EDUCATION DEPARTMENT CHAIR) TSH 1.480 0.270 - 4.200 mIU/L 10/23/2020 1:30 PM EDUCATION DEPARTMENT CHAIR [facility] Blood Venipuncture / Unknown 10/23/2020 10:10 AM EDUCATION DEPARTMENT CHAIR 10/23/2020 10:10 AM EDUCATION DEPARTMENT CHAIR us Cate Patel MD CHEMISTRY ORDERABLES Final R esult Performing Organization Address City/[facility]/ZIP Co de Phone Number [facility] [address] [place] [address] * (ABNORMAL) LIPID PANEL (10/23/2020 10:10 AM EDUCATION DEPARTMENT CHAIR) CHOLESTEROL 210(H) <=200 mg/dL 10/23/2020 1:30 PM EDUCATION DEPARTMENT CHAIR [facility] TRIGLYCERIDES 113 <150 mg/dL 10/23/2020 1:30 PM EDUCATION DEPARTMENT CHAIR [facility] HDL CHOLESTEROL 79.9 >40 mg/dL 1:30 PM EDUCATION DEPARTMENT CHAIR [facility] LDL 108 5 - 130 mg/dL 10/23/2020 1:30 PM EDUCATION DEPARTMENT CHAIR [facility] VLDL 23 5 - 55 mg/dL 10/23/2020 1:30 PM EDUCATION DEPARTMENT CHAIR [facility] CHOL/HDL RATIO 2.6 0.0 - 4.4 10/23/2020 1:30 PM EDUCATION DEPARTMENT CHAIR [facility] NON-HDL CHOLESTEROL 130.1(H) <130 mg/dL 10/23/2020 1:30 PM [facility] IS THE PATIENT REQUIRED TO BE FASTING? Yes 10/23/2020 1:30 PM [facility] Blood Venipuncture / Unknown 10/23/2020 10:10 AM EDUCATION DEPARTMENT CHAIR 10/23/2020 10:10 AM EDUCATION DEPARTMENT CHAIR us Cate Patel MD CHEMISTRY ORDERABLES Final R esult [facility] [address] [place] [address] * (ABNORMAL) CMP (COMPREHENSIVE METABOLIC PANEL) (10/23/2020 10:10 AM EDUCATION DEPARTMENT CHAIR) SODIUM 136 136 - 144 mmol/L 10/23/2020 1:30 PM EDUCATION DEPARTMENT CHAIR [facility] POTASSIUM 4.3 3.5 - 5.1 mmol/L 10/23/2020 1:30 PM EDUCATION DEPARTMENT CHAIR [facility] CHLORIDE 101 100 - 110 mmol/L 10/23/2020 1:30 PM EDUCATION DEPARTMENT CHAIR [facility] CO2, VENOUS 22 22 - 32 mmol/L 10/23/2020 1:30 PM [facility] ANION GAP 17.3 8.0 - 20.0 mmol/L 10/23/2020 1:30 PM [facility] GLUCOSE 124(H) 70 - 99 mg/dL 10/23/2020 1:30 PM [facility] BUN 30(H) 8 - 23 mg/dL 10/23/2020 1:30 PM [facility] CREATININE, BLOOD 1.31(H) 0.60 - 1.10 mg/dL 10/23/2020 1:30 PM [facility] BUN/CREATININE RATIO 23(H) 12 - 20 ratio 10/23/2020 1:30 PM [facility] TOTAL PROTEIN 7.1 6.0 - 8.3 g/dL 10/23/2020 1:30 PM [facility] ALBUMIN 4.5 3.5 - 5.2 g/dL 10/23/2020 1:30 PM [facility] Comment: The colormetric methods used for the determination of Albumin may lead to falsely elevated test results in patients suffering from renal failure or insufficiency due to interference with other proteins. A/G RATIO 1.7 1.0 - 2.0 10/23/2020 1:30 PM [facility] CALCIUM 9.3 8.9 - 10.3 mg/dL 10/23/2020 1:30 PM [facility] T BILI 0.3 <=1.2 mg/dL 10/23/2020 1:30 PM [facility] SGOT (AST) 14 <=32 U/L 10/23/2020 1:30 PM [facility] SGPT (ALT) 22 <=41 U/L 10/23/2020 1:30 PM [facility] ALKALINE PHOSPHATASE 68 35 - 105 U/L 10/23/2020 1:30 PM [facility] GFR, EST. NONAFRICAN 40(L) >=60 10/23/2020 1:30 PM EDUCATION DEPARTMENT CHAIR [facility] GFR, EST. 48(L) >=60 021 1:30 PM EDUCATION DEPARTMENT CHAIR [facility] Comment: Creatinine Clearance is the preferred criteria for selecting drug dose adjustments in renally impaired patients. ??The GFR is provided as additional pertinent clinical information. GFR is reported in mL/min/1.73 sq m. IS THE PATIENT REQUIRED TO BE FASTING? Yes 10/23/2020 1:30 PM EDUCATION DEPARTMENT CHAIR [facility] Blood Venipuncture / Unknown 10/23/2020 10:10 AM EDUCATION DEPARTMENT CHAIR 10/23/2020 10:10 AM EDUCATION DEPARTMENT CHAIR us Cate Patel MD CHEMISTRY ORDERABLES Final R esult [facility] [address] [place] [address] documented in this encounter Visit Diagnoses Diagnosis Essential hypertension Unspecified essential hypertension documented in this encounter Additional Health Concerns Assessment Noted Time PHQ-9 Depression Total Score: 0 08/30/20 19 3:00 PM EDUCATION DEPARTMENT CHAIR documented as of this encounter Care Teams Boiler Shop Supervisor Relationship Specialty Start Date End Date Cate Patel MD PCP - General Family Medicine 07/25/15 12/10/20 documented as of this encounter
--- OUTSIDE RECORDS SUMMARY | 2024-09-21 04:18 | XMS_ITS | Encounter Summary ---
Author Organization [employer] Care Team Providers Care Concrete Products Dispatcher Name Role Phone Cate Patel MD Primary Care Provider [phone] Encounter Details Date Type Department Care Team (Latest Contact Info) Description 10/12/2020 Travel Social History Tobacco Use Types Packs/Day [...] have Coronavirus / COVID-19? No / Unsure 10/12/2020 9:03 AM LANGUAGE TRANSLATOR documented as of this encounter Plan of Treatment Not on file documented as of this encounter Visit Diagnoses Not on filedocumented in this encounter Additional Health Concerns Assessment Noted Time PHQ-9 Depression Total Score: 0 08/30/20 19 3:00 PM LANGUAGE TRANSLATOR documented as of this encounter Care Teams Concrete Products Dispatcher Relationship Specialty Start Date End Date Cate Patel MD PCP - General Family Medicine 07/25/15 12/10/20 documented as of this encounter
--- OUTSIDE RECORDS SUMMARY | 2024-09-21 04:18 | XMS_ITS | Encounter Summary ---
Author Organization [facility] Address [address] [place] [address] Phone Care Team Providers Care Slitter Scorer Cut Off Operator Name Role Phone Liliya Rai MD Unavailable Cate Patel MD Primary Care Provider [phone] Reason for Referral * Consult, Test & Initiate Treatment (Less Than 2 Weeks) - Closed Specialty Diagnoses / Procedures Referred By Yadiel adams Referred To Contact Gastroenterology Diagnoses Gastroesophageal reflux disease without esophagitis Cate Patel MD [address] [place] [address] Phone: tel: fax: [facility] - Gastroenterology [facility] [address] [place] [address] Phone: tel: fax: Referral ID Status Reason Start Date Expiration Date Visits Re quested Visits Authorized [id number] Closed 03/01/2021 1 1 Scheduling Instructions Silvia is being referred for EGD. Please contact patient for scheduling questions or concerns. See below for Silvia's current medications, allergies and problem list. CURRENT MEDS: Current Outpatient Medications: Aspirin 81 MG Tablet, Take 81 mg by mouth daily., Disp: , Rfl: Calcium Carbonate-Vitamin D (CALCIUM 500 + D PO), Take 1 Tab by mouth daily., Disp: , Rfl: Cholecalciferol (VITAMIN D3) 1000 UNIT Tablet, Take 1,000 Units by mouth daily., Disp: , Rfl: dilTIAZem (CARDIZEM CD) 240 MG CAPSULE SR 24 HR, Take 1 capsule by mouth once daily, Disp: 90 Capsule, Rfl: 0 levothyroxine (SYNTHROID) 75 MCG Tablet, Take 1 tablet by mouth once daily, Disp: 90 Tablet, Rfl: 0 lisinopril-hydroCHLOROthiazide (PRINZIDE, ZESTORETIC) 20-25 MG Tablet, Take 1 tablet by mouth once daily, Disp: 90 Tablet, Rfl: 0 Loperamide HCl (IMODIUM A-D) 2 MG Tablet, Take 1 Tab by mouth daily as needed., Disp: , Rfl: Melatonin 5 MG Capsule, Take 5 mg by mouth nightly., Disp: , Rfl: omeprazole (PriLOSEC) 40 MG CAPSULE DELAYED RELEASE, Take 1 Cap by mouth daily., Disp: 90 Cap, Rfl: 1 Topiramate 50 MG Tablet, Take 1 Tablet by mouth 2 times daily., Disp: 60 Tablet, Rfl: 2 Zinc Sulfate (ZINCATE PO), Take 1 Tab [...] Pituitary macroadenoma (HCC) IFG (impaired fasting glucose) Reason for Visit * Reason Comments Medication Management Would like Topiram ate for a 3 month script Encounter Details Date Type Department Care Team (Latest Contact Info) Description 03/01/2021 9:30 AM CDT Office Visit [facility] - Primary Care - [place] [address] [place] [address] Cate Patel MD [address] [place] [address] Obesity, Class III, BMI 40-49.9 (morbid obesity) (HCC) (Primary Dx); Chronic left-sided headaches; Gastroesophageal reflux disease without esophagitis; Benign paroxysmal positional vertigo, unspecified laterality; Hyperlipidemia, unspecified hyperlipidemia type; Pituitary macroadenoma (HCC) Discharge Disposition: Discharged to home or [...] Sign Reading Time Taken Comments Blood Pressure 128/84 03/01/2021 9:18 AM CDT Pulse 93 03/01/2021 9:18 AM CDT Temperature 36.9 ??C (98.5 ??F) 03/01/2021 9:18 AM CD T Respiratory Rate 18 03/01/2021 9:18 AM CDT Oxygen Saturation 98% 03/01/2021 9:18 AM CDT Inhaled Oxygen Concentration - - Weight 99.8 kg (220 lb) 03/01/2021 9:18 AM CDT Height 157.5 cm (5' 2 ) 03/01/2021 9:18 AM CDT Body Mass Index 40.24 03/01/2021 9:18 AM CDT documented in this encounter Progress Notes * Dae Contreras CMA - 03/01/2021 9:30 AM CDT Silvia Boss, 75 y.o., female is here for Medication Management (Would like Topiramate for a 3 month script) Medication Refills: Patient reports/denies need for medication refills. Orders Pended: yes Requested Prescriptions Pending Prescriptions Disp Refills ??? Topiramate 50 MG Tablet 60 Tablet 2 Sig: Take 1 Tablet by mouth 2 times daily. Home Medications Medication Sig Start Date End [...] Take 1 capsule by mouth once daily 01/12/21 Yes Cate Patel MD levothyroxine (SYNTHROID) 75 MCG Tablet Take 1 tablet by mouth once daily 01/12/21 Yes Cate Patel MD lisinopril-hydroCHLOROthiazide (PRINZIDE, ZESTORETIC) 20-25 MG Tablet Take 1 tablet by mouth once daily 01/12/21 Yes Cate Patel MD Loperamide HCl (IMODIUM A-D) 2 MG Tablet Take 1 Tab by mouth daily as needed. Yes Devin Singh MD Melatonin 5 MG Capsule Take 5 mg by mouth nightly. Yes Devin Singh MD omeprazole (PriLOSEC) 40 MG CAPSULE DELAYED RELEASE Take 1 Cap by mouth daily. 07/20/20 Yes Cate Patel MD Topiramate 50 MG Tablet Take 1 Tablet by mouth 2 times daily. 12/20/20 Yes Cate Patel MD Zinc Sulfate (ZINCATE [...] Health Maintenance Due Topic Date Due ??? Zoster Immunization (2 of 3) 01/29/2013 ??? DEXA Bone Density 02/15/2021 Orders Pended: n/a The following BPA's have been addressed with the patient today: N/A * Cate Patel MD - 03/01/2021 9:30 AM CDT Subjective Chief Complaint Patient presents with ??? Medication Management Would like Topiramate for a 3 month script History of Present Illness Silvia presents here for a 4-month followup visit. Her blood pressure is well controlled today at 128/84 mmHg. She has been taking her topiramate for weight loss, which has helped. She has lost 14 pounds since her last visit in October. She has lost a total of 30 pounds since July 2020, so we will continue her topiramate. She says her headaches are much milder with the topiramate. She reports having had esophageal strictures in the past for which she had an EGD and esophageal dilation. She wants to see the chief information security officer again to have it dilated. She feels something stuckin her throat but does not have any difficulty swallowing. She continues to take omeprazole 40 mg daily. She reports having dizzy symptoms, especially when she lies down and turns to a specific direction or bends down to pick something up. She had this several years ago when she saw an orthopedic surgeon. Examination of her ears was normal. I recommended referral to physical therapy for Johnna maneuverand canalith repositioning maneuver. She refused and she wants to try a medication. I will start her on meclizine to take as needed. She reports having had a fall where she fell on the right side and she reports having some pain on the right rib. I recommended getting an x-ray to rule out fracture, but she does not want to get it because no intervention could be done even if there is a fracture and she would rather leave it to heal by itself. She has had her labs done on 02/22/2021, which were reviewed with her. Thyroid functions are normal. Hemoglobin A1c is 5.6 which is normal. Her lipid panel shows a total cholesterol of 253, which is elevated. LDL is slightly elevated at 151. I will start her on simvastatin 5 mg daily. She has tried a statin in the past which gave her muscle and joint pains. Her CMP shows an elevated BUN/creatinine ratio. Encouraged her to keep up hydration. Creatinine is 1.26 with an EGFR of 42, whichhas been stable. LFTs are normal. CBC looks good. Hemoglobin is 12.1. IJN: [id number] ROS: RESPIRATORY: Patient denies shortness of breath, chronic cough or other respiratory problems. CARDIAC: Patient denies chest pain, chest pressure, palpitations, diaphoresis, chest pain radiating into arms or neck. PMH/PSH/FH/SH/medications/allergies/health maintenance entries were reviewed with patient and updated. Objective: Physical Exam Vitals: 03/01/21 0918 BP: 128/84 Pulse: 93 Resp: 18 Temp: 98.5 ??F (36.9 ??C) SpO2: 98% Weight: 220 lb (99.8 kg) Height: 5' 2 (1.575 m) Body mass index is 40.24 kg/m??. Constitutional: She appears well-developed and well-nourished. No distress. HENT: Head: Atraumatic, normocephalic. Ear exam is normal bilaterally. Cardiovascular: Normal rate, regular rhythm, normal heart sounds and intact distal pulses. No murmur/rubs/gallops heard. Pulmonary/Chest: clear to auscultation bilaterally, no crepts or wheezes. Musculoskeletal/extremities: no pedal edema, no calf tenderness. Skin: Skin is warm and dry. Assessment and Plan Silvia Boss presents here for Medication Management (Would like Topiramate for a 3 month script) 1. Obesity, Class III, BMI 40-49.9 (morbid obesity) (HCC) - has lost 14 lb since last visit. Total weight loss 30 lb since starting topiramate in July 2020 - continue Topiramate 50 MG b.i.d.. 2. Chronic left-sided headaches - Topiramate 50 MG b.i.d. has helped control headaches. 3. Gastroesophageal reflux disease without esophagitis - history of esophageal stricture status post dilation - continue omeprazole 40 mg q.d.. - GASTROENTEROLOGY REFERRAL; for EGD and esophageal dilation 4. Benign paroxysmal positional vertigo, unspecified laterality - refused referral to PT for Johnna maneuver - start meclizine (ANTIVERT) 25 MG q.8 hours p.r.n. 5. Hyperlipidemia, unspecified hyperlipidemia type - start simvastatin (ZOCOR) 5 MG q.d. Followup: Return in about 4 months (around 07/02/2021).with labs done 1 week prior to next appointment. The patient understood the plan, questions were answered and AVS including the updated medication list was provided to the patient. Documentation for this visit on 03/01/21 was completed using a template. I have seen and examined the patient. Everything documented was personally performed at this visit with the necessary additions, deletions and changes made as appropriate. This note was dictated using Find[employer] dictation system and there may be errors in buckle and button maker. Despite proof reading the note, there may be mistakes and I apologize for those. Cate Patel MD documented in this encounter Plan of Treatment Scheduled Referrals Name Type Priority Associated Diagnoses Order Schedule GASTROENTEROLOGY REFERRAL Outpatient Referral Less Than 2 weeks Gastroesophageal reflux disease without esophagitis Expected: 03/01/2021, Expires: 03/01/2022 documented as of this encounter Results * THYROID STIMULATING HORMONE (TSH) (06/18/2021 10:54 AM CDT) TSH 1.290 0.270 - 4.200 mIU/L 06/18/2021 12:54 PM CDT [facility] Blood Venipuncture / Unknown 06/18/2021 10:54 AM CDT 06/18/2021 11:33 AM CDT us Cate Patel MD CHEMISTRY ORDERABLES Final R esult [facility] [address] [place] [address] * THYROXINE (T4) FREE (06/18/2021 10:54 AM CDT) T4 FREE 1.4 0.9 - 1.7 ng/dL 06/18/2021 12:54 PM CDT [facility] Blood Venipuncture / Unknown 06/18/2021 10:54 AM CDT 06/18/2021 11:33 AM CDT us Cate Patel MD CHEMISTRY ORDERABLES Final R esult [facility] [address] [place] [address] * (ABNORMAL) LIPID PANEL (06/18/2021 10:54 AM CDT) CHOLESTEROL 221(H) <=200 mg/dL 06/18/2021 12:54 PM CDT [facility] TRIGLYCERIDES 106 <150 mg/dL 06/18/2021 12:54 PM CDT [facility] HDL CHOLESTEROL 80.2 >40 mg/dL 12:54 PM CDT [facility] LDL 120 5 - 130 mg/dL 06/18/2021 12:54 PM CDT [facility] VLDL 21 5 - 55 mg/dL 06/18/2021 12:54 PM CDT [facility] CHOL/HDL RATIO 2.8 0.0 - 4.4 06/18/2021 12:54 PM CDT [facility] NON-HDL CHOLESTEROL 140.8(H) <130 mg/dL 06/18/2021 12:54 PM CDT [facility] IS THE PATIENT REQUIRED TO BE FASTING? Yes 06/18/2021 12:54 PM CDT [facility] HAS THE PATIENT BEEN FASTING? Yes 06/18/2021 12:54 PM CDT [facility] Blood Venipuncture / Unknown 06/18/2021 10:54 AM CDT 06/18/2021 11:33 AM CDT us Cate Patel MD CHEMISTRY ORDERABLES Final R esult [facility] [address] [place] [address] documented in this encounter Visit Diagnoses Diagnosis Obesity, Class III, BMI 40-49.9 (morbid obesity) (HCC)- Primary Morbid obesity Chronic left-sided headaches Headache Gastroesophageal reflux disease without esophagitis Esophageal reflux Benign paroxysmal positional vertigo, unspecified laterality Hyperlipidemia, unspecified hyperlipidemia type Pituitary macroadenoma (HCC) Benign neoplasm of pituitary gland and craniopharyngeal duct (pouch) documented in this encounter Additional Health Concerns Assessment Noted Time PHQ-9 Depression Total Score: 0 08/30/20 19 3:00 PM HEALTH CARE LEGAL ASSISTANT documented as of this encounter Care Teams Slitter Scorer Cut Off Operator Relationship Specialty Start Date End Date Cate Patel MD [address] [place] [address] PCP - General Family Medicine 12/11/20 03/05/23 Liliya Rai MD [address] [address] Consulting Physician Endocrinology 10/24/20 documented as of this encounter
--- OUTSIDE RECORDS SUMMARY | 2024-09-21 04:18 | XMS_ITS | Encounter Summary ---
Author Organization [employer] Care Team Providers Care Nozzle And Sleeve Worker Name Role Phone Liliya Rai MD Unavailable Cate Patel MD Primary Care Provider [phone] Encounter Details Date Type Department Care Team (Latest Contact Info) Description 12/13/2020 Travel Social History Tobacco Use Types Packs/Day [...] have Coronavirus / COVID-19? No / Unsure 12/13/2020 7:10 PM TRACTOR OPERATOR LASER LEVELING documented as of this encounter Plan of Treatment Not on file documented as of this encounter Visit Diagnoses Not on filedocumented in this encounter Additional Health Concerns Assessment Noted Time PHQ-9 Depression Total Score: 0 08/30/20 19 3:00 PM TRACTOR OPERATOR LASER LEVELING documented as of this encounter Care Teams Nozzle And Sleeve Worker Relationship Specialty Start Date End Date Cate Patel MD [address] [place] [address] PCP - General Family Medicine 12/11/20 03/05/23 Liliya Rai MD [address] [address] Consulting Physician Endocrinology 10/24/20 documented as of this encounter
--- OUTSIDE RECORDS SUMMARY | 2024-09-21 04:18 | XMS_ITS | Encounter Summary ---
Author Organization [facility] Care Team Providers Care Tool And Die Manager Name Role Phone Liliya Rai MD Unavailable Cate Patel MD Primary Care Provider + [phone] Vadim Browning MD Unavailable Unavailable Sarah Borges MD Unavailable [phone] Encounter Details Date Type Department Care Team (Latest Contact Info) Description 03/22/2021 Travel Social History Tobacco Use Types Packs/Day [...] Total Score: 0 08/30/20 19 3:00 PM JIG AND FIXTURE BUILDER documented as of this encounter Care Teams Tool And Die Manager Relationship Specialty Start Date End Date Cate Patel MD [address] [place] [address] PCP - General Family Medicine 12/11/20 03/05/23 Liliya Rai MD [address] [address] Consulting Physician Endocrinology 10/24/20 Vadim Browning MD [address] [place] [address] Consulting Physician General Surgery 03/22/21 Sarah Borges MD [address] [place] [address] Consulting Physician Endocrinology 03/22/21 documented as of this encounter
--- OUTSIDE RECORDS SUMMARY | 2024-09-21 04:18 | XMS_ITS | Encounter Summary ---
Author Organization [facility] Address [address] [place] [address] Phone Care Team Providers Care Salesman/Owner Name Role Phone Liliya Rai MD Unavailable Cate Patel MD Primary Care Provider + [phone] Vadim Browning MD Unavailable Unavailable Sarah Borges MD Unavailable [phone] Reason for Visit * Auth/Cert Specialty Diagnoses / Procedures Referred By Contac t Referred To Contact Diagnoses GERD-GLOBUS SYNDROME Procedures EGD Referral ID Status Reason Start Date Expiration Date Visits Re quested Visits Authorized [id number] 1 1 Encounter Details Date Type Department Care Team (Latest Contact Info) Description 07/04/2021 8:36 AM CDT - 07/04/2021 10:45 AM CDT Hospital Encounter [facility] Preop/Pacu II [address] [place] [address] Teofilo Mccrary MD Discharge Disposition: Discharged to home or Selfcare [...] Sign Reading Time Taken Comments Blood Pressure 130/79 07/04/2021 10:37 AM CDT Pulse 69 07/04/2021 10:37 AM CDT Temperature 36 ??C (96.8 ??F) 07/04/2021 8:59 AM CDT Respiratory Rate 20 07/04/2021 10:37 AM CDT Oxygen Saturation 100% 07/04/2021 10:37 AM CDT Inhaled Oxygen Concentration - - [...] WORK, UNLESS INSTRUCTED OTHERWISE. Call doctor's office ([phone]) or go to Emergency room for: Difficulty Breathing, Headache Or Visual Disturbances Persistent Dizziness Or Light-Headedness Persistent Nausea and Vomiting Temperature greater then 100.0 Significant abdominal pain, chest pain, or bleeding. Here at [facility] we strive to provide excellent care to [...] envelope is provided. THANK YOU FOR CHOOSING [facility]. * Attachments The following attachments cannot be sent through Care Everywhere. * Gastroesophageal Reflux Disease (GERD), Discharge Instructions (Ghanaian) * Dilation, Esophageal (Ghanaian) documented in this encounter Medications at Time [...] Mccrary MD 07/04/2021 9:52 AM CDT * Teofilo Mccrary MD - 07/03/2021 5:58 PM CDT [facility] GASTROENTEROLOGY CONSULT/H&P NAME: Silvia Boss [...] Wave Lithotripsy RIGHT-; Surgeon: Neeta Edwards MD; Location:[facility] MAIN; Service: ??? OVARY REMOVAL ??? LAKHWINDER AND BSO Fibroids ??? TOTAL KNEE ARTHROPLASTY Bilateral ??? UPPER GASTROINTESTINAL ENDOSCOPY N/A 10/27/2015 Procedure: EGDcol plus dilatation with 54fr. rodriguez; Surgeon: Talha Catherine DO; Location: [facility] GI LAB; Service: ??? UPPER GASTROINTESTINAL ENDOSCOPY N/A 06/26/2018 Procedure: EGD: yee test, mild esophageal dysmotility, hiatal hernia, dilation 54 fr rodriguez; Surgeon: Talha Catherine DO; Location: [facility] LAB; Service: Gastroenterology FAMILY HISTORY: Family [...] to exams dated: 04/18/2018, 07/22/2016, and 01/02/2015 [facility]. BREAST TISSUE:There are scattered fibroglandular densities [...] exam. Electronically signed by: Mele gupta/giovanny:04/23/2020 15:55:32 Nuclear Spectroscopist: Fernanda SYED(Rosetta)(M), [facility] letter sent: Normal Exam Reading location: [facility] BI-RADS: 2 Benign EXAMINATION Ht 5' 2 [...] 36 CM FROM INCISSORSDILATED WITH NUMBER [id number] RODRIGUEZ. ANTRAL BIOPSIES PENDING/ Findings: PER ABOVE NOTES. [...] procedure, informedconsent was obtained from patient/power of ip technology transactions attorney/caregiver. Risks discussed included, but were not [...] of Care Review 07/04/2021 1013 by Ni Flores, RN Outcome: Outcome Achieved 07/04/2021 0849 by Ni Flores, RN Outcome: Ongoing (see interventions/notes) Flowsheets (Taken [...] Plascencia RN - 06/20/2021 8:41 AM CDT [facility] GI TEACHING Patient Name: Silvia Boss : 1945 CSN#: [id number] Person Educated Patient Ready to Learn Yes [...] for your procedure as instructed by the [facility] Lab. Go to Registration the morning [...] be allowed to accompany you to the [facility]. No children under the age of 16 will be allowed in the [facility] unless they are the patient. If the [...] to Teaching: Verbalizes Understanding Patient assessed for foreign languages department chair during the preop interview and appropriate interventions taken if applicable. documented in this encounter Plan of Treatment Not on file documented as of this encounter Procedures Procedure Name Priority Date/Time Associated Diagnosis Comments PATHOLOGY SURGICAL Routine 07/04/2021 10:01 AM CDT EGD 07/04/2021 9:51 AM CDT EGD-hiatal hernia-esophageal stricture-46F Rodriguez dilation-gastric body and antral biopsy Special Needs 07/04 - GERD Vaccinated-no proof SARS-COV-2 BY MOLECULAR STAT 07/04/2021 8:50 AM CDT documented in this encounter Results * Pathology Surgical (07/04/2021 10:01 AM CDT) Case Report Surgical Pathology Report ? Case: [id number] ? Authorizing Provider: ??Teofilo Mccrary MD ?Collected: ? 07/04/2021 10:01 AM ? Ordering Location: ? [facility] ? Received: ?07/04/2021 11:08 AM ? [facility] ? Lab Main ? Pathologist: ? Madelyn Fontanez, ? MD ? Specimen: ?Stomach, gastric body and antral biopsy ? 07/06/2021 9:41 AM [facility] FINAL DIAGNOSIS Stomach, Body and Antrum, Biopsy: - Reactive gastropathy. 07/06/2021 9:41 AM [facility] Pre-Operative Diagnosis GERD-Globus Syndrome 07/06/2021 9:41 AM [facility] Gross Description A. gastric body and [...] submitted cassette A1. KS/sb 07/06/2021 9:41 AM [facility] Microscopic Description 3 H&e. Sections show fragments of predominantly antral-type gastric mucosa as well as very scant fundic-type mucosa. All fragments demonstrate reactive epithelial changes including mucin depletion and tortuosity of the superficial gastric pits. No significant acute inflammation, intestinal metaplasia, or epithelial atypia is identified. SES/sb 07/06/2021 9:41 AM [facility] Tissue STOMACH STRUCTURE / Unknown 07/04/2021 10:01 AM CDT 07/04/2021 11:08 AM CDT us Teofilo Mccrary MD PATHOLOGY/CYTOLOGY ORDERABLE S Final Result Performing Organization Address [facility] Co de Phone Number [facility] [address] [place] [address] * SARS-COV-2 BY MOLECULAR (07/04/2021 8:50 AM CDT) SARSCOV2 NOT DETECTED (Referenc e Range for this test is Not Detected) [facility] CRUZ ID NOW 07/04/2021 9:42 AM CDT [facility] Comment:This test was perfor med by a MOLECULAR, NON-PCR method Other NASOPHARYNGEAL STRUCTURE / Unknown Non-Phlebotomy Collection / Unknown 07/04/2021 8:50 AM CDT 07/04/2021 8:59 AM CDT Narrative [facility] - 07/04/2021 9:42 AM CDT This [...] information for Clinicians can be found at: https://www.fda.gov/media/065220/download Additional information for Patients can be found at: https://www.fda.gov/media/465391/download us Teofilo Mccrary MD MICROBIOLOGY - GENERAL ORDER SIERRA Final Result Performing Organization Address City/[facility]/ZIP Co de Phone Number [facility] [address] [place] [address] documented in this encounter Visit Diagnoses Not [...] 0900 (New Bag - Prov ider: Ni Flores, RN)1006 (Anesthesia Volume Adjustment - Provider: Farooq Middleton APN, CAN WASHER)1018 (Stopped - Provider: Ni Flores RN) documented in this encounter Additional Health Concerns Assessment Noted Time PHQ-9 Depression Total Score: 0 08/30/20 19 3:00 PM SALES MARKET LEADER documented as of this encounter Care Teams Salesman/Owner Relationship Specialty Start Date End Date Cate Patel MD [address] [place] [address] PCP - General Family Medicine 12/11/20 03/05/23 Liliya Rai MD [address] [address] Consulting Physician Endocrinology 10/24/20 Vadim Browning MD [address] [place] [address] Consulting Physician General Surgery 03/22/21 Sarah Borges MD [address] [place] [address] Consulting Physician Endocrinology 03/22/21 documented as of this encounter
--- OUTSIDE RECORDS SUMMARY | 2024-09-21 04:18 | XMS_ITS | Encounter Summary ---
Author Organization [facility] Address [address] [place] [address] Phone Care Team Providers Care Knitting Demonstrator Name Role Phone Cate Patel MD Primary Care Provider [phone] Liliya Rai MD Unavailable Reason for Visit * Reason Comments Arm Pain Encounter Details Date Type Department Care Team (Latest Contact Info) Description 11/27/2020 11:10 AM T RAIL TURNER [facility] [address] [place] [address] Tyrone Justice, PAC [address] [place] [address] Arm pain, anterior, left (Primary Dx) Discharge Disposition: Discharged to home or Selfcare [...] COVID-19? No / Unsure 11/27/2020 11:02 AM T RAIL TURNER documented as of this encounter Last Filed Vital Signs Vital Sign Reading Time Taken Comments Blood Pressure 110/70 11/27/2020 11:17 AM T RAIL TURNER Pulse 76 11/27/2020 11:17 AM T RAIL TURNER Temperature 36.7 ??C (98 ??F) 11/27/2020 11:17 AM T RAIL TURNER Respiratory Rate - - Oxygen Saturation 98% 11/27/2020 11:17 AM T RAIL TURNER Inhaled Oxygen Concentration - - Weight - - Height - - Body Mass Index - - documented in this encounter Patient Instructions * Patient Instructions* Tyrone Justice, PAC - 11/27/2020 11:10 AM T RAIL TURNER Images from the original note were not included. Start Flexeril and take as needed for pain. Continue with tylenol as needed for pain. Apply ice to the area as needed. If symptoms persist, follow up with PCP for possible MRI. Muscle Strain in the Extremities A muscle strain is a stretching and tearing of muscle fibers. This causes pain, especially when youmove that muscle. There may also be some swelling and bruising. Home care ?? Keep the hurt area raised above heart level to reduce pain and swelling. This is especially important during the first 48 hours. ?? Apply an ice pack over the injured area for 15 to 20 minutes every??3 to 6??hours. You should dothis for??the first??24 to 48 hours.??You can make an ice pack by filling a plastic bag that seals at the top with ice cubes and then wrapping it with a thin towel. Be careful not to injure your skinwith the ice treatments. Ice should never be applied directly to skin. Continue the use of ice packs for relief of pain and swelling as needed. After 48 hours, apply heat??(warm shower or??warm bath)??for 15 to 20 minutes several times a day, or alternate ice and heat. ?? You may use??wqlu-erh-odxevim pain medicine to control pain, unless another medicine was prescribed. If you have chronic liver or kidney disease or ever had a stomach ulcer or gastrointestinal bleeding, talk with your healthcare provider??before??using these medicines. ?? For leg strains: If crutches have been recommended, don???t put full weight on the hurt leg until you can do so without pain. You can return to sports when you are able to hop and run on the injured leg without pain. Follow-up care Follow up with your??healthcare provider, or as advised. When to seek medical advice Call your healthcare provider right away if any of these occur: ?? The toes of the injured leg become??swollen, cold, blue, numb, or tingly ?? Pain or swelling increases [employer] last reviewed this educational content on 02/03/2018 ?? [phone] [employer]. All rights reserved. This information is not intended as a substitute for professional medical care. Always follow your healthcare professional's instructions. T RAIL TURNER documented in this encounter Progress Notes * Evonne Altamirano RN - 11/27/2020 11:10 AM CST Silvia Boss complains of Arm Pain This is a new problem. Episode onset: x 1 week ago. Pt heard left arm pop when she was putting a bowl into a microwave. Pain radiates to the left shoulder and neck. She has tried acetaminophen for the symptoms. Today's ROS T RAIL TURNER * Tyrone Justice PAC - 11/27/2020 11:10 AM CST Images from the original note were not included. Subjective: Silvia Boss is a 75 y.o. female who presents with complaints of left arm pain. Pain radiates tothe left shoulder and left side of the neck. Associated symptoms include bruising, redness Symptoms began about 1 week ago. Symptoms are worsening since onset Severity of symptoms is moderate Patient is currently taking Tylenol and using ice for their symptoms with little improvement. Chief complaint and all history documented by ancillary staff, and any copy/pasted information werereviewed and verified, with additions or corrections, as appropriate. Past medical, family, and social history reviewed. Review of Systems Constitutional: Negative for chills and fever. Musculoskeletal: Positive for arthralgias, joint swelling, myalgias and neck pain. Neurological: Positive for weakness. Negative for numbness. Objective: Physical Exam Vitals and nursing note reviewed. Constitutional: General: She is not in acute distress. Appearance: Normal appearance. Musculoskeletal: Left shoulder: Tenderness present. No swelling, deformity or bony tenderness. Normal range of motion. Decreased strength. Left upper arm: Swelling and tenderness present. No deformity, lacerations or bony tenderness. Arms: Cervical back: Full passive range of motion without pain and normal range of motion. Muscular tenderness present. No pain with movement. Skin: General: Skin is warm. Capillary Refill: Capillary refill takes less than 2 seconds. Neurological: General: No focal deficit present. Mental Status: She is alert and oriented to person, place, and time. Vitals: 11/27/20 1117 BP: 110/70 Pulse: 76 Temp: 98 ??F (36.7 ??C) TempSrc: Temporal SpO2: 98% Discussed with patient about the possibility of a torn or partially torn muscle or tendon. Discussed that this would require an MRI to investigate and that this would be best done through her PCP, Dr. Esposito. She expressed understanding. Assessment and Plan See Diagnoses, Orders, Follow-up, and Instructions Diagnoses and all orders for this visit: Arm pain, anterior, left - cyclobenzaprine (FLEXERIL) 10 MG Tablet; Take 1 Tablet by mouth 3 times daily as needed for Muscle spasms for up to 30 days. Start Flexeril and take as needed for pain. Continue with tylenol as needed for pain. Apply ice to the area as needed. If symptoms persist, follow up with PCP for possible MRI. T RAIL TURNER documented in this encounter Plan of Treatment Not on file documented as of this encounter Visit Diagnoses Diagnosis Arm pain, anterior, left- Primary documented in this encounter Additional Health Concerns Assessment Noted Time PHQ-9 Depression Total Score: 0 08/30/20 19 3:00 PM T RAIL TURNER documented as of this encounter Care Teams Knitting Demonstrator Relationship Specialty Start Date End Date Cate Patel MD PCP - General Family Medicine 07/25/15 12/10/20 Liliya Rai MD #[address] [address] Consulting Physician Endocrinology 10/24/20 documented as of this encounter
--- OUTSIDE RECORDS SUMMARY | 2024-09-21 04:18 | XMS_ITS | Encounter Summary ---
Author Organization [facility] Address [address] [place] [address] Phone Care Team Providers Care Hydraulic And Plumbing Installer Name Role Phone Liliya Rai MD Unavailable Cate Patel MD Primary Care Provider [phone] Vadim Browning MD Unavailable Unavailable Sarah Borges MD Unavailable [phone] Reason for Visit * Auth/Cert Specialty Diagnoses / Procedures Referred By Contac t Referred To Contact Diagnoses GERD-GLOBUS SYNDROME Procedures EGD Referral ID Status Reason Start Date Expiration Date Visits Re quested Visits Authorized [id number] 1 1 Encounter Details Date Type Department Care Team (Late st Contact Info) Description 07/04/2021 9:52 AM CDT Anesthesia Event [facility] [address] [place] [address] Farooq Middleton APRN, CRNA Anesthesia Record Procedure Summary Procedure Name Responsible Anesthesiologist Anesthesia Start Time Anesthesia Stop Time EGD-hiatal hernia-esophageal stricture-46F Zabala dilation-gastric body and antral biopsy Farooq Middleton APRN, CRNA 07/04/21 0952 07/04/21 1006 Events Date Time Event Comment 07/04/2021 0920 0952 An Start 0952 An Start Data 0952 ANASSESSCMPLT 0953 Start Supplemental O2 0953 Anesthesia Ready 1004 Stop Supplemental O2 1004 Stop Data Collection 1004 Transort to Postop 1006 Handoff to RN I completed my SBAR handoff to the receiving nurse. Last vitals BP: 124/80 Temp: 36 ??C (96.8 ??F) Pulse: 78 Resp: 18 SpO2: 99 % 1006 An Stop Last vitals: BP : 124/80 Temp: 36 ??C (96.8 ??F) Pulse: 78 Resp: 18 SpO2: 99 % Meds Name Total lidocaine 2 % 100 mg propofol 10 mg/mL 250 mg lactated ringers infusion 200 mL * Agents Name Inspired CO2 (mmHg) ETCO2 (mmHg) * Blood No blood administrations on file. Lines, Drains, and Airways Type Details Placement Removal Wound 09/16/18; 1415; abscess 09/16/18 1415 by Lacy Tobar RN RETIRED Peripheral IV Line - Single Lumen 04/12/19; median cubital vein (antecubital fossa), left; 24 gauge; 05/23/22 (Removed & Completed by utility. See [facility] RA 4054); 1747 (Removed & Completed by utility. See [facility] RA 4054) 04/12/19 0000 by Belkis Lopez RN 05/23/22 1747 by Tahir Araujo RETIRED Peripheral IV Line - Single Lumen 08/10/20; 1316; no; median cubital vein (antecubital fossa), left; 05/23/22 (Removed & Completed by utility. See [facility] RA 4054); 1747 (Removed & Completed by utility. See [facility] RA 4054) 08/10/20 1316 by Thania Keller RN 05/23/22 1747 by Tahir Araujo RETIRED Peripheral IV Line - Single Lumen 07/04/21; 0916; no; wimw-hqf-qxfksj catheter system; 24 gauge; no longer indicated, catheter/device intact; 07/04/21; 1018 07/04/21 0916 by Ni Flores, RN 07/04/21 1018 by Ni Flores, RN documented in this encounter Social History Tobacco [...] AM CDT documented as of this encounter OR Notes * Anesthesia Postprocedure Evaluation - Farooq Middleton APN, CRNA - 07/04/2021 10:07 AM CDT Patient: Silvia Boss Procedure Summary Date: 07/04/21 Room / Location: [facility] 01 / [facility]IN Anesthesia Start: 951 Anesthesia Stop: 1005 Procedure: EGD-hiatal hernia-esophageal stricture-46F Zabala dilation-gastric body and antral biopsy (N/A ) Diagnosis: (EGD-hiatal hernia-esophageal stricture-46F Zabala dilation-gastric body and antral biopsy) Surgeons: Teofilo Mccrary MD Responsible Provider: Farooq Middleton APN, CRNA Anesthesia Type: MAC ASA Status: 3 Anesthesia Type: MAC Last vitals Vitals Value Taken Time BP Temp Pulse Resp SpO2 Pain score: 0 Pain management: adequate Patient location during evaluation: GI Lab Patient participation: Sufficiently recovered to participate Level of consciousness: awake Cardiovascular status: acceptable Respiratory status: acceptable Hydration status: acceptable Anesthetic complications: no Airway patency: patent Nausea and Vomiting: none * Anesthesia Preprocedure Evaluation - Farooq Middleton APN, CRNA - 07/04/2021 9:19 AM CDT Anesthesia Evaluation Procedure Information Date/Time: 07/04/21 1000 Procedure: EGD (N/A ) Location: [facility] 01 / [facility] Surgeons: Teofilo Mccrary MD Patient summary reviewed No history of anesthetic complications No family history of anesthesia reaction Airway Mallampati: II Dental - normal exam Pulmonary - normal exam (+) sleep apnea, Cardiovascular - normal exam (+) hypertension, Neuro/Psych (+) headaches, psychiatric history GI/Hepatic/Renal - negative ROS Endo/Other (+) hypothyroidism, type II DM Risks, benefits, alternatives discussed with:patient. Anesthesia Plan ASA 3 MAC intravenous induction Anesthetic plan and risks discussed with Patient. Plan discussed with surgeon. documented in this encounter Plan of Treatment Not on file documented as of this encounter Visit Diagnoses Not on filedocumented in this encounter Administered Medications Inactive Administered Medications - up to 3 most recent administrations Medication Order MAR Action Action Date Dose Rate Site lidocaine 2 % injection Intravenous, ONCE (in OR), Starting on Fri07/04/21 at 0955, Until Fri07/04/21 at 1006 Given 07/04/2021 9:55 AM CDT 100 mg propofol (DIPRIVAN) injection Intravenous, ONCE (in OR), Starting on Fri07/04/21 at 0955, Until Fri07/04/21 at 1006 Given 07/04/2021 10:00 AM CDT 50 mg Given 07/04/2021 9:57 AM CDT 50 mg Given 07/04/2021 9:55 AM CDT 150 mg documented in this encounter Additional Health Concerns Assessment Noted Time PHQ-9 Depression Total Score: 0 08/30/20 19 3:00 PM REGISTRATION COORDINATOR documented as of this encounter Care Teams Hydraulic And Plumbing Installer Relationship Specialty Start Date End Date Cate Patel MD [address] [place] [address] PCP - General Family Medicine 12/11/20 03/05/23 Liliya Rai MD #[address] [phone] Consulting Physician Endocrinology 10/24/20 Vadim Browning MD [address] [place] [address] Consulting Physician General Surgery 03/22/21 Sarah Borges MD [address] [place] [address] Consulting Physician Endocrinology 03/22/21 documented as of this encounter
--- OUTSIDE RECORDS SUMMARY | 2024-09-21 04:18 | XMS_ITS | Encounter Summary ---
Author Organization [facility] Address [address] [place] [address] Phone Care Team Providers Care Academic Coordinator Name Role Phone Liliya Rai MD Unavailable Cate Patel MD Primary Care Provider [phone] Reason for Visit * Reason Onset Date Comments Results 12/12/2020 Encounter Details Date Type Department Care Team (Late st Contact Info) Description 12/12/2020 Telephone [facility] - Primary Care - [facility] [place] [address] Cate Patel MD [address] [place] [address] Results Social History Tobacco Use [...] COVID-19? No / Unsure 12/11/2020 9:14 AM FLOOR LAYER HELPER documented as of this encounter Miscellaneous Notes * Telephone Encounter - Rosalba Black RN - 12/12/2020 10:47 AM FLOOR LAYER HELPER Called patient to inform-verbalized understanding. R LAYER HELPER * Telephone Encounter - Rosalba Black RN - 12/12/2020 10:47 AM FLOOR LAYER HELPER ----- Message from Cate Patel MD sent at 12/12/2020 10:47 AM FLOOR LAYER HELPER ----- Please inform patient, SARSCOV2 - NOT DETECTED R LAYER HELPER documented in this encounter Plan of Treatment Not on file documented as of this encounter Visit Diagnoses Not on filedocumented in this encounter Additional Health Concerns Assessment Noted Time PHQ-9 Depression Total Score: 0 08/30/20 19 3:00 PM FLOOR LAYER HELPER documented as of this encounter Care Teams Academic Coordinator Relationship Specialty Start Date End Date Cate Patel MD [address] [place] [address] PCP - General Family Medicine 12/11/20 03/05/23 Liliya Rai MD #[address] [address] Consulting Physician Endocrinology 10/24/20 documented as of this encounter
--- OUTSIDE RECORDS SUMMARY | 2024-09-21 04:18 | XMS_ITS | Encounter Summary ---
Author Organization [facility] Address [address] [place] [address] Phone Care Team Providers Care Gut Sorter Name Role Phone Liliya Rai MD Unavailable Cate Patel MD Primary Care Provider [phone] Encounter Details Date Type Department Care Team (Late st Contact Info) Description 02/22/2021 9:00 AM CDT Lab [facility] - Primary Care - [address] [phone] [facility] Essential hypertension; IFG (impaired fasting glucose) Discharge Disposition: Discharged [...] AM CDT documented as of this encounter Progress Notes * Mile Beauchamp RMA - 02/22/2021 9:00 AM CDT Silvia presents for lab draw per order of Dr. Esposito dated 02/22/21. Specimen collected from left antecubital without incident. sah documented in this encounter Plan of Treatment Not on file documented as of this encounter Procedures Procedure Name Priority Date/Time Associated Diagnosis Comments HEMOGLOBIN A1C W/ ESTIMATED GLUCOSE Routine 02/22/2021 9:05 AM CDT Essential hypertension IFG (impaired fasting glucose) CBC WITH AUTO DIFFERENTIAL Routine 02/22/2021 9:05 AM CDT Essential hypertension IFG (impaired fasting glucose) THYROXINE (T4) FREE Routine 02/22/2021 9 :05 AM CDT Essential hypertension IFG (impaired fasting glucose) THYROID STIMULATING HORMONE (TSH) Routine 02/22/2021 9:05 AM CDT Essential hypertension IFG (impaired fasting glucose) LIPID PANEL Routine 02/22/2021 9:05 AM CDT Essential hypertension IFG (impaired fasting glucose) CMP (COMPREHENSIVE METABOLIC PANEL) Routine 02/22/2021 9:05 AM CDT Essential hypertension IFG (impaired fasting glucose) COMPLETE BLOOD COUNT (CBC) WITH DIFF Routine 02/22/2021 9:05 AM CDT Essential hypertension IFG (impaired fasting glucose) documented in this encounter Results * (ABNORMAL) CBC WITH AUTO DIFFERENTIAL (02/22/2021 9:05 AM CDT) WBC 10.20 4.00 - 12.00 10(3)/mcL 02/22/2021 1:23 PM CDT [facility] RBC 3.89 3.80 - 5.30 10(6)/mcL 02/22/2021 1:23 PM CDT [facility] HEMOGLOBIN (HGB) 12.1 12.0 - 15.8 g/dL 02/22/2021 1:23 PM CDT [facility] HEMATOCRIT (HCT) 38.9 36.0 - 47.0 % 02/22/2021 1:23 PM CDT [facility] MCV 100.0(H) 82.0 - 96.0 fL 02/22/2021 1:23 PM CDT [facility] MCH 31.1 26.0 - 34.0 pg 02/22/2021 1:23 PM CDT [facility] MCHC 31.1 31.0 - 36.0 g/dL 02/22/2021 1:23 PM CDT [facility] PLATELET COUNT 288 140 - 440 10(3)/[facility] 02/22/2021 1:23 PM [facility] RDW 13.0 11.8 - 15.5 % 02/22/2021 1:23 PM CDT [facility] MPV 10.5 9.7 - 12.4 fL 02/22/2021 1:23 PM CDT [facility] NEUTROPHILS 81.6(H) 47.0 - 73.0 % 02/[facility]21 [facility] LYMP[facility] 9.3(L) 18.0 - 42.0 % 02/22/2021 1:23 PM CDT [facility] MONOCYTES 7.7 4.0 - 12.0 % 02/22/2021 1:23 PM CDT [facility] EOSINOPHILS 0.9 0.0 - 5.0 % 02/22/2021 1:23 PM CDT [facility] BASOPHILS 0.5 0.0 - 1.0 % 02/22/2021 1:23 PM CDT [facility] ABSOLUTE NEUTROPHILS 8.32(H) 1.60 - 7.70 10(3)/mcL 02/22/2021 1:23 PM CDT [facility] ABSOLUTE LYMPHOCYTES 0.95(L) 1.30 - 3.20 10(3)/mcL 02/22/2021 1:23 PM CDT [facility] ABSOLUTE MONOCYTES 0.79 0.20 - 1.00 10(3)/mcL 02/22/2021 1:23 PM CDT [facility] ABSOLUTE EOSINOPHIL 0.09 0.00 - 0.40 10(3)/mcL 02/22/2021 1:23 PM CDT [facility] ABSOLUTE BASOPHILS 0.05 0.00 - 0.10 10(3)/[facility] 02/22/2021 1:23 PM CDT [facility] NRBC PER 100 WBC 0 02/23/20 1:23 PM CDT [facility] Blood Venipuncture / Unknown 02/22/2021 9:05 AM CDT 02/22/2021 9:05 AM CDT us Cate Patel MD HEMATOLOGY ORDERABLES Final Result [facility] [address] [place] [address] * THYROID STIMULATING HORMONE (TSH) (02/22/2021 9:05 AM CDT) [facility] TSH 1.180 0.270 - 4.200 mIU/L 02/22/2021 1:57 PM CDT [facility] Blood Venipuncture / Unknown 02/22/2021 9:05 AM CDT 02/22/2021 9:05 AM CDT us Cate Patel MD CHEMISTRY ORDERABLES Final R esult [facility] [address] [place] [address] * THYROXINE (T4) FREE (02/22/2021 9:05 AM CDT) T4 FREE 1.6 0.9 - 1.7 ng/dL 02/22/2021 1:57 PM CDT [facility] Blood Venipuncture / Unknown 02/22/2021 9:05 AM CDT 02/22/2021 9:05 AM CDT Cate Patel MD CHEMISTRY ORDERABLES Final R esult [facility] [address] [place] [address] * HEMOGLOBIN A1C W/ ESTIMATED GLUCOSE (02/22/2021 9:05 AM CDT) [facility] HGB-A1C 5.6 4.0 - 6.0 % 02/22/2021 1:34 PM CDT [facility] Est Average Glucose 114.0 mg/dL 02/22/2021 1:34 PM CDT [facility] Blood Venipuncture / Unknown 02/22/2021 9:05 AM CDT 02/22/2021 9:05 AM CDT Narrative [facility] - 02/22/2021 1:34 PM CDT HEMOGLOBIN A1C: DIABETIC PATIENTS: WELL-CONTROLLED: ?? 6.2 - 7.0 INTERMEDIATE WELL-CONTROLLED: ??7.0 - 9.0 POORLY-CONTROLLED: ??>9.0 us Cate Patel MD CHEMISTRY ORDERABLES Final R esult [facility] [address] [place] [address] * (ABNORMAL) LIPID PANEL (02/22/2021 9:05 AM CDT) Pathologist [facility] [place] CHOLESTEROL 253(H) <=200 mg/dL 02/22/2021 1:57 PM CDT [facility] TRIGLYCERIDES 77 <150 mg/dL 02/22/2021 1:57 PM CDT [facility] HDL CHOLESTEROL 87.1 >40 mg/dL 1:57 PM CDT [facility] LDL 151(H) 5 - 130 mg/dL 02/22/2021 1:57 PM CDT [facility] VLDL 15 5 - 55 mg/dL 02/22/2021 1:57 PM CDT [facility] CHOL/HDL RATIO 2.9 0.0 - 4.4 02/22/2021 1:57 PM CDT [facility] NON-HDL CHOLESTEROL 165.9(H) <130 mg/dL 02/22/2021 1:57 PM CDT [facility] IS THE PATIENT REQUIRED TO BE FASTING? Yes 02/22/2021 1:57 PM CDT [facility] HAS THE PATIENT BEEN FASTING? Yes 02/22/2021 1:57 PM CDT [facility] Blood Venipuncture / Unknown 02/22/2021 9:05 AM CDT 02/22/2021 9:05 AM CDT us Cate Patel MD CHEMISTRY ORDERABLES Final R esult [facility] [address] [place] [address] * (ABNORMAL) CMP (COMPREHENSIVE METABOLIC PANEL) (02/22/2021 9:05 AM CDT) SODIUM 140 136 - 144 mmol/L 02/22/2021 1:57 PM CDT [facility] POTASSIUM 4.2 3.5 - 5.1 mmol/L 02/22/2021 1:57 PM CDT [facility] CHLORIDE 102 100 - 110 mmol/L 02/22/2021 1:57 PM CDT [facility] CO2, VENOUS 21(L) 22 - 32 mmol/L 02/22/2021 1:57 PM CDT [facility] ANION GAP 21.2(H) 8.0 - 20.0 mmol/L 02/22/2021 1:57 PM [facility] GLUCOSE 98 70 - 99 mg/dL 02/22/2021 1:57 PM [facility] BUN 31(H) 8 - 23 mg/dL 02/22/2021 1:57 PM [facility] CREATININE, BLOOD 1.26(H) 0.60 - 1.10 mg/dL 02/22/2021 1:57 PM [facility] BUN/CREATININE RATIO 25(H) 12 - 20 ratio 02/22/2021 1:57 PM [facility] TOTAL PROTEIN 7.3 6.0 - 8.3 g/dL 02/22/2021 1:57 PM [facility] ALBUMIN 4.6 3.5 - 5.2 g/dL 02/22/2021 1:57 PM [facility] Comment: The colormetric methods used for the determination of Albumin may lead to falsely elevated test results in patients suffering from renal failure or insufficiency due to interference with other proteins. A/G RATIO 1.7 1.0 - 2.0 02/22/2021 1:57 PM [facility] CALCIUM 10.0 8.9 - 10.3 mg/dL 02/22/2021 1:57 PM [facility] T BILI 0.4 <=1.2 mg/dL 02/22/2021 1:57 PM [facility] SGOT (AST) 16 <=32 U/L 02/22/2021 1:57 PM [facility] SGPT (ALT) 15 <=41 U/L 02/22/2021 1:57 PM [facility] ALKALINE PHOSPHATASE 72 35 - 105 U/L 02/22/2021 1:57 PM [facility] GFR, EST. NONAFRICAN 42(L) >=60 02/22/2021 1:57 PM [facility] GFR, EST. 50(L) >=60 021 1:57 PM CDT [facility] Comment: Creatinine Clearance is the preferred criteria for selecting drug dose adjustments in renally impaired patients. ??The GFR is provided as additional pertinent clinical information. GFR is reported in mL/min/1.73 sq m. IS THE PATIENT REQUIRED TO BE FASTING? No 02/22/2021 1:57 PM CDT [facility] Blood Venipuncture / Unknown 02/22/2021 9:05 AM CDT 02/22/2021 9:05 AM CDT us Cate Patel MD CHEMISTRY ORDERABLES Final R esult [facility] [address] [place] [address] documented in this encounter Visit Diagnoses Diagnosis Essential hypertension Unspecified essential hypertension IFG (impaired fasting glucose) Impaired fasting glucose documented in this encounter Additional Health Concerns Assessment Noted Time PHQ-9 Depression Total Score: 0 08/30/20 19 3:00 PM PERSONNEL CONSULTANT documented as of this encounter Care Teams Gut Sorter Relationship Specialty Start Date End Date Cate Patel MD [address] [place] [address] PCP - General Family Medicine 12/11/20 03/05/23 Liliya Rai MD [address] [address] Consulting Physician Endocrinology 10/24/20 documented as of this encounter
--- OUTSIDE RECORDS SUMMARY | 2024-09-21 04:18 | XMS_ITS | Encounter Summary ---
Author Organization [facility] Address [address] [place] [address] Phone Care Team Providers Care Refrigeration System Installer Name Role Phone Cate Patel MD Primary Care Provider [phone] Reason for Visit * Reason Onset Date Comments Results 10/17/2020 Encounter Details Date Type Department Care Team (Late st Contact Info) Description 10/17/2020 Telephone [facility] - Endocrinology - [address] [place] [address] Liliya Rai MD [address] [address] Results Social History Tobacco Use [...] COVID-19? Unable to assess 10/16/2020 9:09 AM CLOUD SOLUTIONS ARCHITECT documented as of this encounter Miscellaneous Notes * Telephone Encounter - Vira Turcios RN - 10/17/2020 1:47 PM CLOUD SOLUTIONS ARCHITECT [employer] message sent. D SOLUTIONS ARCHITECT * Telephone Encounter - Liliya Rai MD - 10/17/2020 1:40 PM CST Please inform that thyroid function test result was within the reference range. D SOLUTIONS ARCHITECT documented in this encounter Plan of Treatment Not on file documented as of this encounter Visit Diagnoses Not on filedocumented in this encounter Additional Health Concerns Assessment Noted Time PHQ-9 Depression Total Score: 0 08/30/20 19 3:00 PM CLOUD SOLUTIONS ARCHITECT documented as of this encounter Care Teams Refrigeration System Installer Relationship Specialty Start Date End Date Cate Patel MD PCP - General Family Medicine 07/25/15 12/10/20 documented as of this encounter
--- OUTSIDE RECORDS SUMMARY | 2024-09-21 04:18 | XMS_ITS | Encounter Summary ---
Author Organization [facility] Address [address] [place] [address] Phone Care Team Providers Care Trade Analyst Name Role Phone Cate Patel MD Primary Care Provider Reason for Visit * Reason Comments Thyroid Problem Encounter Details Date Type Department Care Team (Latest Contact Info) Description 10/12/2020 9:15 AM HEAVY EQUIPMENT SUPERVISOR Office Visit [facility] - Endocrinology - [place] [address] [place] [id number] Liliya Rai MD [address] [address] Postablative hypothyroidism (Primary Dx); Class 3 severe obesity due to excess calories with serious comorbidity and body mass index (BMI) of 40.0 to 44.9 in adult (HCC) Discharge Disposition: Discharged to [...] COVID-19? No / Unsure 10/12/2020 9:03 AM HEAVY EQUIPMENT SUPERVISOR documented as of this encounter Last Filed Vital Signs Vital Sign Reading Time Taken Comments Blood Pressure 106/60 10/12/2020 9:07 AM HEAVY EQUIPMENT SUPERVISOR Pulse 68 10/12/2020 9:07 AM HEAVY EQUIPMENT SUPERVISOR Temperature 36.6 ??C (97.8 ??F) 10/12/2020 9:07 AM CS T Respiratory Rate 20 10/12/2020 9:07 AM HEAVY EQUIPMENT SUPERVISOR Oxygen Saturation 98% 10/12/2020 9:07 AM HEAVY EQUIPMENT SUPERVISOR Inhaled Oxygen Concentration - - Weight 105.7 kg (233 lb) 10/12/2020 9:07 AM HEAVY EQUIPMENT SUPERVISOR Height 157.5 cm (5' 2 ) 10/12/2020 9:07 AM HEAVY EQUIPMENT SUPERVISOR Body Mass Index 42.62 10/12/2020 9:07 AM HEAVY EQUIPMENT SUPERVISOR documented in this encounter Patient Instructions * Patient Instructions* Liliya Rai MD - 10/12/2020 9:15 AM HEAVY EQUIPMENT SUPERVISOR Please continue levothyroxine 75 mcg daily Please check thyroid function test Additional steps and management will then be determined when the aforementioned laboratory result is available for review. Follow up visit in 6 months Y EQUIPMENT SUPERVISOR documented in this encounter Progress Notes * Liliya Rai MD - 10/12/2020 9:15 AM CST Subjective&Objective: Ms. Boss is a 75-year-old woman who comes to the Endocrinology Offices to discuss management of hypothyroidism. Other pertinent health history includes hyperthyroidism s/p PAINTER, schwannoma, dyslipidemia, and obesity. The patient takes levothyroxine 75 mcg daily for management of hypothyroidism. The patient reports that she takes thyroxine on an empty stomach with water as intended. The patient denied missing doses, and she also denied symptoms that would be worrisome for thyroid hormone over-replacement or under-replacement. Review of Systems Constitutional: Negative for activity change, appetite change. (+) intentional weight loss Cardiovascular: Negative for chest pain and palpitations. Endocrine: Negative for heat or cold intolerance Physical Exam Constitutional: appears well-developed and well-nourished. No acute distress. Neck: Normal range of motion, Neck supple, The patient's neck was supple, and no cervical lymphadenopathy was appreciated. The patient's thyroid was approximately 10 g to 15 g in size. Cardiovascular: Normal rate and regular rhythm Pulmonary/Chest: Effort normal and breath sounds normal Neurological: No significant tremor noted on arms extended DIAGNOSTIC DATA: Lab Results Component Value Date TSH 2.550 02/14/2020 T4FREE 1.1 02/14/2020 Lab Results Component Value Date HEMATOCRIT 35.2 (L) 07/17/2020 Lab Results Component Value Date CREATININE 0.99 07/17/2020 GFRNA 55 (L) 07/17/2020 CALCIUM 10.0 07/17/2020 SGPTALT 12 07/17/2020 Assessment and Plan Ms. Boss is an elderly woman with hypothyroidism who appears to be clinically euthyroid, and TSH checked in February 2020 was well within the reference range. Treatment consideration was discussed with her at some length. Arrangement will be made for thyroid function test. Additional steps in management to be determined once result is available for review. The patient will return for office reevaluation in 6 months. PLAN: 1. Continue LT4 75 mcg daily 2. Check thyroid function test 3. Further plan based on #2 4. RTC in 6 months Obesity PLAN: 1. Low carb and calorie diet 2. Avoid snack and beverage between meal and at bedtime ??? I spent 25 min preparing the medical chart to see the patient, performing her medical evaluation, and counseling the patient. Liliya Rai MD 10/12/2020 Y EQUIPMENT SUPERVISOR documented in this encounter Plan of Treatment Not on file documented as of this encounter Results * THYROXINE (T4) FREE (10/12/2020 9:50 AM HEAVY EQUIPMENT SUPERVISOR) T4 FREE 1.6 0.9 - 1.7 ng/dL 10/12/2020 11:47 AM HEAVY EQUIPMENT SUPERVISOR [facility] Blood Venipuncture / Unknown 10/12/2020 9:50 AM HEAVY EQUIPMENT SUPERVISOR 10/12/2020 11:06 AM HEAVY EQUIPMENT SUPERVISOR us Liliya Rai MD CHEMISTRY ORDERABLES Final Resul t Performing Organization Address City/[facility]/ZIP Co de Phone Number [facility] [address] [place] [address] * THYROID STIMULATING HORMONE (TSH) (10/12/2020 9:50 AM HEAVY EQUIPMENT SUPERVISOR) TSH 1.170 0.270 - 4.200 mIU/L 10/12/2020 11:46 AM HEAVY EQUIPMENT SUPERVISOR [facility] Blood Venipuncture / Unknown 10/12/2020 9:50 AM HEAVY EQUIPMENT SUPERVISOR 10/12/2020 11:06 AM HEAVY EQUIPMENT SUPERVISOR us Liliya Rai MD CHEMISTRY ORDERABLES Final Resul t Performing Organization Address [facility] Co de Phone Number [facility] [address] [place] [address] documented in this encounter Visit Diagnoses Diagnosis Postablative hypothyroidism- Primary Other postablative hypothyroidism Class 3 severe obesity due to excess calories with serious comorbidity and body mass index (BMI) of 40.0 to 44.9 in adult (HCC) documented in this encounter Additional Health Concerns Assessment Noted Time PHQ-9 Depression Total Score: 0 08/30/20 19 3:00 PM HEAVY EQUIPMENT SUPERVISOR documented as of this encounter Care Teams Trade Analyst Relationship Specialty Start Date End Date Cate Patel MD PCP - General Family Medicine 07/25/15 12/10/20 documented as of this encounter
--- OUTSIDE RECORDS SUMMARY | 2024-09-21 04:18 | XMS_ITS | Encounter Summary ---
Author Organization [facility] Care Team Providers Care Rough And Truing Machine Operator Name Role Phone Liliya Rai MD Unavailable Cate Patel MD Primary Care Provider [phone] Encounter Details Date Type Department Care Team (Latest Contact Info) Description 12/21/2020 Travel Social History Tobacco Use Types Packs/Day [...] Total Score: 0 08/30/20 19 3:00 PM TOOL DESIGN DRAFTER documented as of this encounter Care Teams Rough And Truing Machine Operator Relationship Specialty Start Date End Date Cate Patel MD [address] [place] [address] PCP - General Family Medicine 12/11/20 03/05/23 Liliya Rai MD [address] [phone] Consulting Physician Endocrinology 10/24/20 documented as of this encounter
--- OUTSIDE RECORDS SUMMARY | 2024-09-21 04:18 | XMS_ITS | Encounter Summary ---
Author Organization [facility] Address [address] [place] [address] Phone Care Team Providers Care Oncology Account Specialist Name Role Phone Liliya Rai MD Unavailable Cate Patel MD Primary Care Provider [phone] Reason for Visit * Consult, Test & Initiate Treatment (Routine) - Closed Specialty Diagnoses / Procedures Referred By Yadiel adams Referred To Contact Sleep Center Diagnoses MARY on CPAP Cate Patel MD [address] [place] [address] Phone: tel: fax: [facility] [address] [place] [address] Phone: tel: fax: Referral ID Status Reason Start Date Expiration Date Visits Re quested Visits Authorized [id number] Closed 10/31/2020 1 1 Encounter Details Date Type Department Care Team (Late st Contact Info) Description 12/13/2020 8:00 PM RETAIL SALES ASSOCIATE SEASONAL Sleep Lab [facility] [address] [place] [address] Cate Patel MD [address] [place] [address] MARY on CPAP; Obstructive sleep apnea Discharge Disposition: Discharged to home or Selfcare [...] COVID-19? No / Unsure 12/13/2020 7:10 PM RETAIL SALES ASSOCIATE SEASONAL documented as of this encounter Procedure Notes * Edwin Tripathi MD - 12/13/2020 8:00 PM CST EVALUATION REPORT Silvia Boss 12-13-2020 Ms. Silvia Boss, a 75 year old Female (1945), was seen at the [facility] for a sleep apnea evaluation. She has a history significant for HTN, depression, hypothyroidism, GERD, hyperlipidemia, chronic fatigue, migraines, anxiety, chronic kidney disease, and obstructive sleep apnea with PAP therapy. [place] Scale is 8. Her current height is 5'2 and weight is 234.0 pounds, her BMI is 42.8 and her neck size is 15.75 inches. She is referred by Dr. Cate Patel. SUMMARY: ??? Rare mild snoring present without evidence of clinically significant obstructive sleep apnea (G47.33). ??? Overall AHI=1.6/hr, Overall SDB index=5.2/hr, low SpO2 = 88%. ??? Anterior tibialis EMG monitoring revealed 171 periodic leg movements in sleep (26.8 per hour), 53 of which were associated with unambiguous EEG arousal (8.3 per hour). ??? Mildly increased Stage N1 sleep and lowered sleep efficiency for patient age group. ??? No seizure activity was noted in EEG tracing. recommendations: ??? This sleep study did not reveal clinically significant obstructive sleep apnea using AHI criteria. However, if there is high clinical suspicion of sleep apnea, repeat testing should be consideredgiven reports of false negative sleep study findings associated with first night testing that reduce with subsequent re-testing (Huber et al 1993, Chest 103(3); 756-60. Lesvia et al 2001, J Sleep Res 10(3); 245-51. Gingerak et al 1996, Chest 19(7): 589-92. ??? Consider evaluation for underlying causes of RLS and PLMD, including uremia and iron deficiency, with a BUN, creatinine, serum ferritin and iron. ??? Consider pharmacological treatment of PLMD depending upon symptoms. ??? Obtain and maintain ideal body weight. ??? Avoid alcohol and other PHOTOENGRAVING PHOTOGRAPHER depressants. If daytime sleepiness persists, despite the above recommendations, a reevaluation with daytime somnolence testing may be considered. POLYSOMNOGRAPHY: Nocturnal polysomnography was performed 12-13-2020 (10:06 p.m. to 05:56 a.m.), using standard recording parameters which include Frontal, Central and Occipital EEG,, left and right EOG, submental EMG, EKG, left and right anterior tibialis EMG, abdominal and thoracic respiratory effort, nasal/oral airflow, and oximetry. Epochs of data was staged and scored by registered technologist according to published AASM scoring guidelines and the 30% reduction in airflow associated with a 4% or greater desaturation for definition of hypopnea (AASM Rule 1B). She estimated obtaining 8 hours of sleep the night before testing. SLEEP DATA: Ms. Boss had a total sleep time (TST) of 383.5 minutes out of 470.1 minutes total recording time (TRT) for a sleep efficiency (TST/TRT) of 81.6%. Sleep latency was 2.1 minutes and Stage R (REM) latency was 168.0 minutes. Sleep architecture was remarkable for significantly increased Stage N1 sleepat 8.5% of total sleep time (32.5 minutes). Stage N2 sleep was 81.6% (313.0 minutes), Stage N3 sleep was 0.3% (1.0 minutes) and Stage R sleep was 9.6% (37.0 minutes). There were 9.4 spontaneous arousals per hour of sleep. There was 84.5 minutes of wake after sleep onset reported. RESPIRATORY MONITORING: Respiratory monitoring revealed 1 obstructive apneas, 0 mixed apneas, 1 central apnea and 8 partialupper airway obstructions (obstructive hypopneas) resulting in an overall apnea and hypopnea index (AHI) of 1.6 per hour of sleep. The longest noted apnea was 11.8 seconds. Her overall supine AHI was1.6 events per hour of supine sleep (383.5 minutes total supine sleep) and lateral AHI was No L events per hour of lateral sleep (No L minutes total lateral sleep). There was an average of 0.7 apneasand hypopneas per hour of non-REM sleep and an average of 6.5 apneas and hypopneas per hour of REM sleep. There were an additional 3.6 respiratory event related arousals (RERA) which resulted in an overall sleep disordered breathing (SDB) index of 5.2/hr. Baseline waking SaO2 was 96%, mean sleepingSpO2 was 97% and the lowest SpO2 was 88%. Technicians noted rare mild snores during sleep. LIMB MOVEMENTS AND ECG: Anterior tibialis EMG monitoring revealed 171 periodic leg movements in sleep (26.8 per hour), 53 of which were associated with unambiguous EEG arousal (8.3 per hour). ECG showed Normal Sinus Rhythm. Average heart rate was 64.9 bpm, minimum recorded heart rate was 42.0 bpm and maximum heart rate was 102.0 bpm PATIENT ASSESSMENT: On the morning post sleep questionnaire, the patient estimated a sleep latency of 30 minutes and a total sleep time of 8 hours. She noted that the sleep in the laboratory was similar to her sleep at home. Thank you for this referral and please call with any questions or concerns. Edwin Tripathi MD [place] SALES ASSOCIATE SEASONAL Associated attestation - Nick Hernandez MD - 12/19/2020 12:45 PM CDT I have read the Sleep Report for this patient and attest that I am in agreement with it. documented in this encounter Plan of Treatment Not on file documented as of this encounter Procedures Procedure Name Priority Date/Time Associated Diagnosis Comments SPLIT NIGHT POLYSOMNOGRAPHY - INCLUDES DIAGNOSTIC AND CPAP TITRATION Routine 12/14/2020 Obstructive sleep apnea MARY on CPAP documented in this encounter Results * SPLIT NIGHT PSG (12/14/2020) us Cate Patel MD SLEEP CENTER ORDERABLES Alysia l Result documented in this encounter Visit Diagnoses Diagnosis MARY on CPAP Obstructive sleep apnea (adult) (pediatric) Obstructive sleep apnea Obstructive sleep apnea (adult) (pediatric) documented in this encounter Additional Health Concerns Assessment Noted Time PHQ-9 Depression Total Score: 0 08/30/20 19 3:00 PM RETAIL SALES ASSOCIATE SEASONAL documented as of this encounter Care Teams Oncology Account Specialist Relationship Specialty Start Date End Date Cate Patel MD [address] [place] [address] PCP - General Family Medicine 12/11/20 03/05/23 Liliya Rai MD [address] [address] Consulting Physician Endocrinology 10/24/20 documented as of this encounter
--- OUTSIDE RECORDS SUMMARY | 2024-09-21 04:18 | XMS_ITS | Encounter Summary ---
Author Organization [facility] Address [address] [place] [address] Phone Care Team Providers Care Immigration Manager Name Role Phone Liliya Rai MD Unavailable Cate Patel MD Primary Care Provider + [phone] Vadim Browning MD Unavailable Unavailable Sarah Borges MD Unavailable [phone] Reason for Visit * Reason Comments Follow-up * Auth/Cert Specialty Diagnoses / Procedures Referred By Contac t Referred To Contact Referral ID Status Reason Start Date Expiration Date Visits Re quested Visits Authorized [id number] 1 1 Encounter Details Date Type Department Care Team (Late st Contact Info) Description 06/25/2021 1:00 PM CDT [facility] [address] [place] [id number] Tania Timmons, PAID SEARCH MARKETING STRATEGIST, GARAGE LABORER [address] [place] [address] Iron deficiency anemia due to chronic blood loss (Primary Dx) Discharge Disposition: Discharged to home [...] Sign Reading Time Taken Comments Blood Pressure 120/68 06/25/2021 1:07 PM CDT Pulse 71 06/25/2021 1:07 PM CDT Temperature 37.1 ??C (98.7 ??F) 06/25/2021 1:07 PM CD T Respiratory Rate 18 06/25/2021 1:07 PM CDT Oxygen Saturation 97% 06/25/2021 1:07 PM CDT Inhaled Oxygen Concentration - - Weight 93.3 kg (205 lb 11.2 oz) 06/25/2021 1:07 PM CDT Height 157.5 cm (5' 2 ) 06/25/2021 1:07 PM CDT Body Mass Index 37.62 06/25/2021 1:07 PM CDT documented in this encounter Progress Notes * Tania Timmons, [place], GARAGE LABORER - 06/25/2021 1:00 PM CDT Outpatient Hem/Onc Progress Note Chief Complaint: Iron deficiency anemia. Silvia Boss is a 76 y.o. female seen today for follow up of iron deficiency anemia. Patient c/ochronic fatigue. Performs water aeorbics 5 days/week. Patient states she needs right shoulder and hip replacement. Patient states she fell 4 months ago. Patient scheduled for upper GI for stretching of esopohagus on 07/05/2021. Patient has h/o esophageal nodules. Her last EGD was on 06/26/18, last colonoscopy was on 12/06/[address] Catherine. Patient has h/o CKD and hiatal hernia that contributes to JUAN MANUEL. Outpatient Medications Marked as Taking for the 06/25/21 encounter (Office Visit) with Tania Timmons APN, ALDA Medication Sig Dispense Refill ??? Aspirin 81 [...] mouth once daily 90 Capsule 0 ??? Euthyrox 75 MCG Tablet Take 1 tablet [...] 1 Tablet by mouth 2 times daily. (Patient taking differently: Take50 mg by mouth 2 times daily. Indications: Migraine Headache) 180 Tablet 1 ??? Zinc Sulfate (ZINCATE PO) Take 1 Tab by mouth daily. Allergies as of 06/25/2021 ??? (No Known Allergies) ECO VITAL SIGNS: Vitals: 06/25/21 1307 BP: 120/68 BP Location: Left Arm BP Position: Sitting BP Cuff Size: Large Pulse: 71 Resp: 18 Temp: 98.7 ??F (37.1 ??C) SpO2: 97% Weight: 205 lb 11.2 oz (93.3 kg) Height: 5' 2 (1.575 m) Physical Exam A&Ox3 HRRR L, CTA Abdomen soft, obese bowel sounds positive, nontender to palpation Ambulates with cane. Labs: Lab Results Component Value Date WBC 9.28 06/18/2021 RBC 3.86 06/18/2021 HEMOGLOBIN 12.1 06/18/2021 HEMATOCRIT 37.1 06/18/2021 MCV 96.1 (H) 06/18/2021 MCH 31.3 06/18/2021 MCHC 32.6 06/18/2021 PLATELETCNT 306 06/18/2021 RDW 12.6 06/18/2021 LYMPHOCYTES 12.4 (L) 06/18/2021 RELEOS 2.5 06/18/2021 RELBAS 0.6 06/18/2021 ANC 7.01 06/18/2021 MONOCYTES 0.83 06/18/2021 EOSINOPHILS 0.23 06/18/2021 BASOPHILS 0.06 06/18/2021 Lab Results Component Value Date SODIUM 135 (L) 06/18/2021 POTASSIUM 4.0 06/18/2021 CHLORIDE 102 06/18/2021 ANIONGAP 17.0 06/18/2021 GLUCOSE 102 (H) 06/18/2021 BUN 29 (H) 06/18/2021 CREATININE 1.24 (H) 06/18/2021 TOTALPROTEIN 7.1 06/18/2021 ALBUMIN 4.5 06/18/2021 CALCIUM 9.3 06/18/2021 SGPTALT 7 06/18/2021 ALKALINEPHO 68 06/18/2021 Ref. Range 06/18/2021 10:54 IRON Latest Ref Range: 37 - 145 mcg/dL 62.32 UIBC Latest Ref Range: 112 - 346 mcg/dL 210 TIBC CALC Latest Ref Range: 149 - 491 mcg/dL 272 % SATURATION, IRON Latest Ref Range: 20 - 55 % 23 FERRITIN Latest Ref Range: 13 - 150 ng/mL 509 (H) DIAGNOSTIC IMAGING STUDIES: 04/18/2021: MRI of Brain: [...] tumor 5. ??Hiatal hernia ?? Plan: 1. ??Iron deficiency. Stable. 2. Mild chronic Anemia, multifactorial etiology including chronic kidney disease. Bone marrow bx Nov 2018 unremarkable 3. ??Hiatal hernia. 4. ??Pituitary tumor: MRI 04/18/2021 possible pituitary adenoma: FU with Endocrinology/ neurology. 5. ??Hiatal hernia- continue FU with GI RTC: 6 months. Labs: CBC, CMP, iron profile and ferritin. Patient has appointment with PCP on 06/28/2021. Total time spent on this encounter on this date of service, including pre-visit review of separately obtained history, [id number] interaction performing medically appropriate physical exam, patientcounseling/education, interpretation of diagnostic results, care coordination and documentation was30 minutes. The patient was given an opportunity to ask questions, and all questions answered to patient's satisfaction. Patient verbalizes understanding of the plan as outlined above. Tania Timmons APN, CNP 06/25/2021 1:23 PM CDT documented in this encounter Miscellaneous Notes * Interdisciplinary - Judy Sosa MA - 06/25/2021 1:00 PM CDT Follow up. C/O generalized pain. 4/10 pain score. Meds reviewed with pt and are up to date--tjo documented in this encounter Plan of Treatment Not on file documented as of this encounter Visit Diagnoses Diagnosis Iron deficiency anemia due to chronic blood loss- Primary Iron deficiency anemia secondary to blood loss (chronic) documented in this encounter Additional Health Concerns Assessment Noted Time PHQ-9 Depression Total Score: 0 08/30/20 3:00 PM INSURANCE BILLING CLERK documented as of this encounter Care Teams Immigration Manager Relationship Specialty Start Date End Date Cate Patel MD [address] [place] [address] PCP - General Family Medicine 12/11/20 03/05/23 Liliya Rai MD [address] [address] Consulting Physician Endocrinology 10/24/20 Vadim Browning MD [address] [place] [address] Consulting Physician General Surgery 03/22/21 Sarah Borges MD [address] [place] [address] Consulting Physician Endocrinology 03/22/21 documented as of this encounter
--- OUTSIDE RECORDS SUMMARY | 2024-09-21 04:18 | XMS_ITS | Encounter Summary ---
Author Organization [facility] Care Team Providers Care Human Resources Hr Generalist Name Role Phone Cate Patel MD Primary Care Provider [phone] Liliya Rai MD Unavailable Encounter Details Date Type Department Care Team (Latest Contact Info) Description 11/27/2020 Travel Social History Tobacco Use Types Packs/Day [...] COVID-19? No / Unsure 11/27/2020 11:02 AM TOBACCO CLASSER documented as of this encounter Plan of Treatment Not on file documented as of this encounter Visit Diagnoses Not on filedocumented in this encounter Additional Health Concerns Assessment Noted Time PHQ-9 Depression Total Score: 0 08/30/20 19 3:00 PM TOBACCO CLASSER documented as of this encounter Care Teams Human Resources Hr Generalist Relationship Specialty Start Date End Date Cate Patel MD PCP - General Family Medicine 07/25/15 12/10/20 Liliya Rai MD [address] [address] Consulting Physician Endocrinology 10/24/20 documented as of this encounter
--- OUTSIDE RECORDS SUMMARY | 2024-09-21 04:18 | XMS_ITS | Encounter Summary ---
Author Organization [facility] Address [address] [place] [address] Phone Care Team Providers Care Cardiac Technician Name Role Phone Liliya Rai MD Unavailable Cate Patel MD Primary Care Provider + [phone] Vadim Browning MD Unavailable Unavailable Sarah Borges MD Unavailable [phone] Reason for Visit * Reason Comments Thyroid Problem Follow up Encounter Details Date Type Department Care Team (Latest Contact Info) Description 04/23/2021 9:30 AM CDT Office Visit [facility] - Endocrinology - [place] [address] [place] [address] Liliya Rai MD [address] [address] Postablative hypothyroidism (Primary Dx); Class 2 severe obesity due to excess calories with serious comorbidity and body mass index (BMI) of 38.0 to 38.9 in adult (HCC); Pituitary tumor Discharge Disposition: Discharged to home or Selfcare [...] Sign Reading Time Taken Comments Blood Pressure 98/62 04/23/2021 9:15 AM CDT Pulse 85 04/23/2021 9:15 AM CDT Temperature 35.8 ??C (96.4 ??F) 04/23/2021 9:15 AM CD T Respiratory Rate 16 04/23/2021 9:15 AM CDT Oxygen Saturation 97% 04/23/2021 9:15 AM CDT Inhaled Oxygen Concentration - - Weight 95.3 kg (210 lb) 04/23/2021 9:15 AM CDT Height 157.5 cm (5' 2 ) 04/23/2021 9:15 AM CDT Body Mass Index 38.41 04/23/2021 9:15 AM CDT documented in this encounter Patient Instructions * Patient Instructions* Liliya Rai MD - 04/23/2021 9:30 AM CDT Please continue levothyroxine 75 mcg daily ?? Please check thyroid function test before the next visit as discussed ?? Additional steps and management will then be determined when the aforementioned laboratory result is available for review. ?? Follow up visit in 6 months documented in this encounter Progress Notes * Liliya Rai MD - 04/23/2021 9:30 AM CDT Subjective&Objective: Ms. Boss is a 75-year-old woman who returns to the Endocrinology Offices to review thyroid function test result and discuss management of hypothyroidism. Other pertinent health history includes hyperthyroidism s/p PAINTER, OA, obesity, and pituitary tumor. Ms. Boss takes levothyroxine 75 mcg daily for management of hypothyroidism. The patient reports that she takes thyroxine on an empty stomach with water as intended. The patient denied missing doses. Serum TSH checked in February 2021 was 1.18 mIU/L (reference range 0.27 to 4.2). Simultaneously measuredfree T4 was 1.6 ng/mL (reference range 0.9 to 1.7). Review of Systems Constitutional: Negative for activity change, appetite change. (+) fatigue, (+) weight loss Eyes: Negative for pain and visual disturbance. Respiratory: Negative for cough and shortness of breath. Cardiovascular: Negative for chest pain and palpitations. Gastrointestinal: Positive for intermittent dysphagia Endocrine: Negative for heat or cold intolerance Physical Exam Vitals: 04/23/21 0915 BP: 98/62 BP Location: Left Arm BP Position: Sitting BP Cuff Size: Large Pulse: 85 Resp: 16 Temp: (!) 96.4 ??F (35.8 ??C) TempSrc: Temporal SpO2: 97% Weight: 210 lb (95.3 kg) Height: 5' 2 (1.575 m) Constitutional: appears well-developed and well-nourished. No acute distress. Eyes: EOM are normal, Not icteric Neck: Normal range of motion, Neck supple Cardiovascular: Normal rate and regular rhythm Pulmonary/Chest: Effort normal and breath sounds normal Neurological: No significant tremor noted on arms extended DIAGNOSTIC DATA: Lab Results Component Value Date TSH 1.180 02/22/2021 T4FREE 1.6 02/22/2021 Lab Results Component Value Date HEMATOCRIT 38.9 02/22/2021 Lab Results Component Value Date CREATININE 1.26 (H) 02/22/2021 GFRNA 42 (L) 02/22/2021 CALCIUM 10.0 02/22/2021 SGPTALT 15 02/22/2021 Lab Results Component Value Date SODIUM 140 02/22/2021 POTASSIUM 4.2 02/22/2021 CHLORIDE 102 02/22/2021 CO2VEN 21 (L) 02/22/2021 MAGNESIUM 1.8 04/07/2018 Lab Results Component Value Date CHOLESTEROL 253 (H) 02/22/2021 TRIGLYCRIDES 77 02/22/2021 HDLCHOLESTE 87.1 02/22/2021 LDL 151 (H) 02/22/2021 04/18/21 COMPARISON: ??Brain MR 04/04/2020. FINDINGS: Redemonstrated is the T1 isointense mildly enhancing soft tissue lesion arising from the inferior aspect of the??left sella. ??The lesion measures 12 x 11 x 10 mm in craniocaudal, anteroposterior, and transverse dimensions, grossly similar to prior exam, the measured in a similar fashion. ??The abuts the pituitary gland and to the left frontal sinus, with anterior extension into the sphenoid sinus. ?? The optic chiasm and orbits are normal. The scalp and calvarium are normal. The superior sagittal sinus demonstrates normal venous flow. The corpus callosum is normal in shape and signal intensity. The posterior fossa is unremarkable. The brainstem and craniocervical junction are unremarkable. There is mild global cerebral atrophy with ex vacuo dilatation of ventricles. The paranasal sinuses are normal. The visualized portions of the mastoids are??unremarkable. The orbits appear normal. Normal flow voids are demonstrated in the carotid arteries and basilar artery. Assessment and Plan Ms. Boss is an elderly woman with postablative hypothyroidism who appears to be clinically euthyroid, and TSH checked in February 2021 was well within the reference range. Treatment consideration was discussed with her at some length. She will continue current medication for management of hypothyroidism. The patient will return for office reevaluation in 6 months. PLAN: 1. Continue LT4 75 mcg daily 2. Check thyroid function test before the next visit as discussed 3. Contact endocrinology office for symptom that would be worrisome for over- or under-replacement 4. RTC in 6 months Obesity PLAN: 1. Low carb and calorie diet 2. Avoid snack and beverage between meal and at bedtime Pituitary tumor - Stable in size PLAN: 1. F/U at [facility]. Total time spent on this encounter on this date of service, including pre-visit review of separately obtained history, [id number] interaction performing medically appropriate physical exam, patientcounseling/education, interpretation of diagnostic results, care coordination and documentation was31 minute Liliya Rai MD 04/23/2021 documented in this encounter Plan of Treatment Not on file documented as of this encounter Visit Diagnoses Diagnosis Postablative hypothyroidism- Primary Other postablative hypothyroidism Class 2 severe obesity due to excess calories with serious comorbidity and body mass index (BMI) of 38.0 to 38.9 in adult (HCC) Pituitary tumor Neoplasm of unspecified nature of endocrine glands and other parts of nervous system documented in this encounter Additional Health Concerns Assessment Noted Time PHQ-9 Depression Total Score: 0 08/30/20 19 3:00 PM PAIRER ODDS documented as of this encounter Care Teams Cardiac Technician Relationship Specialty Start Date End Date Cate Patel MD [address] [place] [address] PCP - General Family Medicine 12/11/20 03/05/23 Liliya Rai MD [address] [address] Consulting Physician Endocrinology 10/24/20 Vadim Browning MD [address] [place] [address] Consulting Physician General Surgery 03/22/21 Sarah Borges MD [address] [place] [address] Consulting Physician Endocrinology 03/22/21 documented as of this encounter
--- OUTSIDE RECORDS SUMMARY | 2024-09-21 04:19 | XMS_ITS | Encounter Summary ---
Author Organization [facility] Address [address] [place] [address] Phone Care Team Providers Care Interior Systems Carpenter Name Role Phone Cate Patel MD Primary Care Provider [phone] Reason for Visit * Reason Comments Medication Refill Encounter Details Date Type Department Care Team (Late st Contact Info) Description 12/22/2019 Refill [facility] [address] [place] [address] Eunice Geiger, CONTINUITY TESTER, NETWORK CONSULTANT [address] [place] [address] Medication Refill Social History Tobacco [...] encounter Miscellaneous Notes * Telephone Encounter - Sandee Ruby RN - 12/23/2019 9:35 AM CDT Medication(s) refilled and signed per [facility] Chronic Medication Refill Standing Order for Pediatric and Adult Patients. documented in this encounter Plan of Treatment Not on file documented as of this encounter Visit Diagnoses Not on filedocumented in this encounter Additional Health Concerns Assessment Noted Time PHQ-9 Depression Total Score: 0 08/30/20 19 3:00 PM ASSISTANT WOMEN'S SOCCER COACH documented as of this encounter Care Teams Interior Systems Carpenter Relationship Specialty Start Date End Date Cate Patel MD PCP - General Family Medicine 07/25/15 12/10/20 documented as of this encounter
--- OUTSIDE RECORDS SUMMARY | 2024-09-21 04:19 | XMS_ITS | Encounter Summary ---
Author Organization [employer] Care Team Providers Care Technical Buyer Name Role Phone Cate Patel MD Primary Care Provider [phone] Encounter Details Date Type Department Care Team (Latest Contact Info) Description 02/17/2020 Travel Social History Tobacco Use Types Packs/Day [...] have Coronavirus / COVID-19? No / Unsure 02/17/2020 10:05 AM CDT documented as of this encounter Plan of Treatment Not on file documented as of this encounter Visit Diagnoses Not on filedocumented in this encounter Additional Health Concerns Assessment Noted Time PHQ-9 Depression Total Score: 0 08/30/20 19 3:00 PM PHARMACOLOGY ASSOCIATE documented as of this encounter Care Teams Technical Buyer Relationship Specialty Start Date End Date Cate Patel MD PCP - General Family Medicine 07/25/15 12/10/20 documented as of this encounter
--- OUTSIDE RECORDS SUMMARY | 2024-09-21 04:19 | XMS_ITS | Encounter Summary ---
Author Organization [employer] Care Team Providers Care Maintenance Mechanic Name Role Phone Cate Patel MD Primary Care Provider [phone] Encounter Details Date Type Department Care Team (Latest Contact Info) Description 03/17/2020 Travel Social History Tobacco Use Types Packs/Day [...] have Coronavirus / COVID-19? No / Unsure 03/17/2020 9:46 AM CDT documented as of this encounter Plan of Treatment Not on file documented as of this encounter Visit Diagnoses Not on filedocumented in this encounter Additional Health Concerns Assessment Noted Time PHQ-9 Depression Total Score: 0 08/30/20 19 3:00 PM DYNAMICS AX CONSULTANT documented as of this encounter Care Teams Maintenance Mechanic Relationship Specialty Start Date End Date Cate Patel MD PCP - General Family Medicine 07/25/15 12/10/20 documented as of this encounter
--- OUTSIDE RECORDS SUMMARY | 2024-09-21 04:19 | XMS_ITS | Encounter Summary ---
Author Organization [employer] Care Team Providers Care Plisse Machine Operator Helper Name Role Phone Cate Patel MD Primary Care Provider [phone] Encounter Details Date Type Department Care Team (Latest Contact Info) Description 08/10/2020 Travel Social History Tobacco Use Types Packs/Day [...] have Coronavirus / COVID-19? No / Unsure 08/10/2020 1:02 PM LONG TERM documented as of this encounter Plan of Treatment Not on file documented as of this encounter Visit Diagnoses Not on filedocumented in this encounter Additional Health Concerns Assessment Noted Time PHQ-9 Depression Total Score: 0 08/30/20 19 3:00 PM LONG TERM documented as of this encounter Care Teams Plisse Machine Operator Helper Relationship Specialty Start Date End Date Cate Patel MD PCP - General Family Medicine 07/25/15 12/10/20 documented as of this encounter
--- OUTSIDE RECORDS SUMMARY | 2024-09-21 04:19 | XMS_ITS | Encounter Summary ---
Author Organization [email or web address] Care Team Providers Care Alliances Consultant Name Role Phone Cate Patel MD Primary Care Provider [phone] Encounter Details Date Type Department Care Team (Latest Contact Info) Description 04/06/2020 Travel Social History Tobacco Use Types Packs/Day [...] have Coronavirus / COVID-19? No / Unsure 04/06/2020 8:57 AM CDT documented as of this encounter Plan of Treatment Not on file documented as of this encounter Visit Diagnoses Not on filedocumented in this encounter Additional Health Concerns Assessment Noted Time PHQ-9 Depression Total Score: 0 08/30/20 19 3:00 PM TECHNICAL SERVICES REP documented as of this encounter Care Teams Alliances Consultant Relationship Specialty Start Date End Date Cate Patel MD PCP - General Family Medicine 07/25/15 12/10/20 documented as of this encounter
--- OUTSIDE RECORDS SUMMARY | 2024-09-21 04:19 | XMS_ITS | Encounter Summary ---
Author Organization [facility] Address [address] [place] [address] Phone Care Team Providers Care Conservation Educator Name Role Phone Cate Patel MD Primary Care Provider [phone] Reason for Visit * Reason Onset Date Comments Other 06/09/2020 Encounter Details Date Type Department Care Team (Late st Contact Info) Description 06/09/2020 Telephone [facility] [address] [place] [address] Cate Patel MD [address] [place] [address] Other Social History Tobacco Use Types Packs/Day Years [...] encounter Miscellaneous Notes * Telephone Encounter - Shirley Green - 06/15/2020 9:25 AM CDT Phoned pt: notified her labs are ordered She will have them drawn at the hospital lab on 07/17/20 * Telephone Encounter - Sindhu Schaefer RN - 06/09/2020 11:00 AM CDT Per chart review there are active lab orders. Left message for patient to call back. * Telephone Encounter - Sindhu Schaefer RN - 06/09/2020 10:45 AM CDT Message from Antonella Dominguez sent at 06/09/2020 ??9:46 AM CDT Summary: Dr. Esposito - pt needs lab orders prior to appt on 07/20/20, requesting flu shot at same time as labs Tracey is calling regarding her lab work prior to her visit with Dr. Esposito on 07/20/20. ??She needs orders for the labs from Dr. Esposito. ??Also she is requesting that she get a flu shot the same time she gets her blood work done. ??Please call Tracey back at [phone]. ??Cate Patel MD Call History Type Contact Phone User 06/09/2020 09:40 AM CDT Phone (Incoming) Silvia Boss Aditi Webb (Self) [phone] (H) Antonella Dominguez documented in this encounter Plan of Treatment Not on file documented as of this encounter Visit Diagnoses Not on filedocumented in this encounter Additional Health Concerns Assessment Noted Time PHQ-9 Depression Total Score: 0 08/30/20 19 3:00 PM DIRECTOR SUPPLY CHAIN documented as of this encounter Care Teams Conservation Educator Relationship Specialty Start Date End Date Cate Patel MD PCP - General Family Medicine 07/25/15 12/10/20 documented as of this encounter
--- OUTSIDE RECORDS SUMMARY | 2024-09-21 04:19 | XMS_ITS | Encounter Summary ---
Author Organization [facility] Address [address] [place] [address] Phone Care Team Providers Care Overlock Hemmer Name Role Phone Cate Patel MD Primary Care Provider [phone] Reason for Visit * Auth/Cert Specialty Diagnoses / Procedures Referred By Contac t Referred To Contact Referral ID Status Reason Start Date Expiration Date Visits Re quested Visits Authorized [id number] 1 1 Encounter Details Date Type Department Care Team (Late st Contact Info) Description 07/27/2020 1:00 PM CDT Clinical Support [facility] Oncology Services [address] [place] [id number] Pepe Anthony MD [address] [place] [address] Hiatal hernia (Primary Dx); Iron deficiency anemia due to [...] have Coronavirus / COVID-19? No / Unsure 07/27/2020 1:11 PM CDT documented as of this encounter Last Filed Vital Signs Vital Sign Reading Time Taken Comments Blood Pressure 146/92 07/27/2020 1:16 PM CDT Pulse 94 07/27/2020 1:16 PM CDT Temperature 36.9 ??C (98.4 ??F) 07/27/2020 1:16 PM CD T Respiratory Rate 16 07/27/2020 1:16 PM CDT Oxygen Saturation 98% 07/27/2020 1:16 PM CDT Inhaled Oxygen Concentration - - Weight 113.5 kg (250 lb 3.2 oz) 07/27/2020 1:16 PM CDT Height - - Body Mass Index 45.76 07/20/2020 1:23 PM CDT documented in this encounter Miscellaneous Notes * Interdisciplinary - Lissa Alex RN - 07/27/2020 1:00 PM CDT Patient ambulated into treatment room in stable condition. Vitals and IV obtained. Medication givenas ordered. Tolerated well. IV removed. Gauze and coband applied. Left treatment room in stable condition. documented in this encounter Plan of Treatment Not on file documented as of this encounter Visit Diagnoses Diagnosis Hiatal hernia- Primary Diaphragmatic hernia without mention of obstruction or gangrene Iron deficiency anemia due to chronic blood loss Iron deficiency anemia secondary to blood loss (chronic) documented in this encounter Administered Medications Inactive Administered Medications - up to 3 most recent administrations Medication Order MAR Action Action Date Dose Rate Site ferric carboxymaltose (INJECTAFER) 750 mg in sodium chloride 0.9 % 250 mL IVPB 750 mg, Intravenous, ONCE, 1 dose, On Carolyn 07/27/20 at 1400, Administer over 30 MinutesIndications:Hiatal hernia,Iron deficiency anemia due to chronic blood loss Given 07/27/2020 1:31 PM CDT 750 mg sodium chloride 0.9 % 50 mL IV bolus Intravenous, ONCE, 1 dose, On Carolyn 07/27/20 at 1400, Use as flush before and after chemotherapy administration.Indications:Hiatal hernia,Iron deficiency anemia due to chronic blood loss New Bag 07/27/2020 2:02 PM CDT documented in this encounter Additional Health Concerns Assessment Noted Time PHQ-9 Depression Total Score: 0 08/30/20 19 3:00 PM PROFESSOR OF POLITICAL SCIENCE documented as of this encounter Care Teams Overlock Hemmer Relationship Specialty Start Date End Date Cate Patel MD PCP - General Family Medicine 07/25/15 12/10/20 documented as of this encounter
--- OUTSIDE RECORDS SUMMARY | 2024-09-21 04:19 | XMS_ITS | Encounter Summary ---
Author Organization [employer] Care Team Providers Care Training Technician Name Role Phone Cate Patel MD Primary Care Provider [phone] Encounter Details Date Type Department Care Team (Latest Contact Info) Description 03/12/2020 Travel Social History Tobacco Use Types Packs/Day [...] have Coronavirus / COVID-19? No / Unsure 03/12/2020 8:27 AM CDT documented as of this encounter Plan of Treatment Not on file documented as of this encounter Visit Diagnoses Not on filedocumented in this encounter Additional Health Concerns Assessment Noted Time PHQ-9 Depression Total Score: 0 08/30/20 19 3:00 PM DIRECTOR OF FRONT OFFICE documented as of this encounter Care Teams Training Technician Relationship Specialty Start Date End Date Cate Patel MD PCP - General Family Medicine 07/25/15 12/10/20 documented as of this encounter
--- OUTSIDE RECORDS SUMMARY | 2024-09-21 04:19 | XMS_ITS | Encounter Summary ---
Author Organization [facility] Address [address] [place] [address] Phone Care Team Providers Care Swimming Pool Installer And Servicer Name Role Phone Cate Patel MD Primary Care Provider [phone] Reason for Visit * Reason Comments Follow-up Encounter Details Date Type Department Care Team (Late st Contact Info) Description 11/22/2019 1:00 PM GUNSTOCK REPAIRER Office Visit [facility] Oncology Services [address] [place] [phone] Vinay Forte MD [address] [place] [address] Iron deficiency (Primary Dx); Iron deficiency anemia due to [...] on file documented as of this encounter Last Filed Vital Signs Vital Sign Reading Time Taken Comments Blood Pressure 138/68 11/22/2019 1:09 PM GUNSTOCK REPAIRER Pulse 85 11/22/2019 1:09 PM GUNSTOCK REPAIRER Temperature 37.4 ??C (99.3 ??F) 11/22/2019 1:09 PM CS T Respiratory Rate 20 11/22/2019 1:09 PM GUNSTOCK REPAIRER Oxygen Saturation 97% 11/22/2019 1:09 PM GUNSTOCK REPAIRER Inhaled Oxygen Concentration - - Weight 107.3 kg (236 lb 8 oz) 11/22/2019 1:09 PM GUNSTOCK REPAIRER Height 157.5 cm (5' 2 ) 11/22/2019 1:09 PM GUNSTOCK REPAIRER Body Mass Index 43.26 11/22/2019 1:09 PM GUNSTOCK REPAIRER documented in this encounter Progress Notes * Shoshana Muller RN - 11/22/2019 1:00 PM CST Patient has been having generalized left sided pain. Fatigued a lot lately . I am here for a check up because I am anenic . She had her bloodwork done on 11/19/2019 at [facility] outpatient lab. TOCK REPAIRER documented in this encounter Plan of Treatment Not on file documented as of this encounter Visit Diagnoses Diagnosis Iron deficiency- Primary Other disorders of iron metabolism Iron deficiency anemia due to chronic blood loss Iron deficiency anemia secondary to blood loss (chronic) documented in this encounter Additional Health Concerns Assessment Noted Time PHQ-9 Depression Total Score: 0 08/30/20 19 3:00 PM GUNSTOCK REPAIRER documented as of this encounter Care Teams Swimming Pool Installer And Servicer Relationship Specialty Start Date End Date Cate Patel MD PCP - General Family Medicine 07/25/15 12/10/20 documented as of this encounter
--- OUTSIDE RECORDS SUMMARY | 2024-09-21 04:19 | XMS_ITS | Encounter Summary ---
Author Organization [employer] Care Team Providers Care Sheet Heater Helper Name Role Phone Cate Patel MD Primary Care Provider Encounter Details Date Type Department Care Team (Latest Contact Info) Description 10/20/2019 Travel Social History Tobacco Use Types Packs/Day [...] Total Score: 0 08/30/20 19 3:00 PM MARKET DEVELOPER documented as of this encounter Care Teams Sheet Heater Helper Relationship Specialty Start Date End Date Cate Patel MD PCP - General Family Medicine 07/25/15 12/10/20 documented as of this encounter
--- OUTSIDE RECORDS SUMMARY | 2024-09-21 04:19 | XMS_ITS | Encounter Summary ---
Author Organization [facility] Address [address] [place] [address] Phone Care Team Providers Care Out Of Town Collection Clerk Name Role Phone Cate Patel MD Primary Care Provider [phone] Reason for Referral * Radiology Services (Routine) - Closed Specialty Diagnoses / Procedures Referred By Yadiel t Referred To Contact Radiology Diagnoses Postablative hypothyroidism Procedures US THYROID/NECK Liliya Rai MD [address] [address] Phone: tel: fax: Referral ID Status Reason Start Date Expiration Date Visits Re quested Visits Authorized [id number] Closed 04/06/2020 1 1 Reason for Visit * Radiology Services (Routine) - Closed Specialty Diagnoses / Procedures Referred By Yadiel adams Referred To Contact Radiology Diagnoses Postablative hypothyroidism Procedures US THYROID/NECK Liliya Rai MD [address] [address] Phone: tel: fax: Referral ID Status Reason Start Date Expiration Date Visits Re quested Visits Authorized [id number] Closed 04/06/2020 1 1 Encounter Details Date Type Department Care Team (Latest Contact Info) Description 04/20/2020 10:52 AM CDT - 04/20/2020 11:59 PM CDT Hospital Encounter [facility] Ultrasound [address] [place] [phone] Liliya Rai MD [address] [phone] Discharge Disposition: Discharged to home or Selfcare [...] have Coronavirus / COVID-19? No / Unsure 04/20/2020 9:47 AM CDT documented as of this encounter Medications at Time of Discharge Aspirin 81 MG Tablet Take 81 mg by mouth daily. Calcium Carbonate-Vitamin D (CALCIUM 500 + D PO) Take 1 Tab by mouth daily. 07/30/2023 CARTIA XT 240 MG CAPSULE SR 24 HR TAKE 1 CAPSULE BY MOUTH ONCE DAILY 90 Cap 3 04/09/2019 05/01/2020 Cholecalciferol (VITAMIN D3) 1000 UNIT Tablet Take 1,000 Units by mouth daily. 07/30/2023 levothyroxine (SYNTHROID) 75 MCG Tablet TAKE 1 TABLET BY MOUTH ONCE DAILY 90 Tab 3 10/08/2019 07/20/2020 lisinopril-hydroC HLOROthiazide (PRINZIDE, ZESTORETIC) 20-25 MG Tablet TAKE 1 TABLET BY MOUTH ONCE DAILY 90 Tab 3 10/08/2019 07/20/2020 Loperamide HCl (IMODIUM) 2 MG Tablet Take 1 Tab by mouth daily as needed. 09/10/2022 Melatonin 5 MG Capsule Take 5 mg by mouth nightly. 07/30/2023 omeprazole (PRILOSEC) 40 MG CAPSULE DELAYED RELEASE Take 1 capsule by mouth once daily 90 Cap 2 12/23/2019 07/20/2020 predniSONE (DELTASONE) 10 MG TabletIndications :Bug bite, initial encounter Take 4 tab PO daily x 2 days, 3 tab PO daily x 2 days, 2 tab PO daily x 2 day, 1 tab PO daily x 2 days. 20 Tab 03/13/2020 07/20/2020 venlafaxine (EFFEXOR-XR) 37.5 MG CAPSULE SR 24 HR Take 1 Cap by mouth daily. 30 Cap 3 10/20/2019 07/20/2020 Zinc Sulfate (ZINCATE PO) Take 1 Tab by mouth daily. 07/30/2023 documented as of this encounter Plan of Treatment Not on file documented as of this encounter Procedures Procedure Name Priority Date/Time Associated Diagnosis Comments US THYROID Routine 04/20/2020 11:14 AM CDT Postablative hypothyroidism documented in this encounter Results * US THYROID/NECK (04/20/2020 11:14 AM CDT) Anatomical Region Laterality Modality BODY N/A Ultrasound 04/21/2020 11:3 5 AM CDT Impressions 04/21/2020 11:38 AM CDT IMPRESSION: ?? 1. ??Predominantly solid right thyroid nodule, stable dating back to 07/22/2016. ??TIRADS 4. ??Follow-up in 12 months recommended. 2. ??Solid left thyroid nodule. ??This meets criteria for TIRADS 7 on current ultrasound although ultrasound guided FNA was previously performed on 08/21/2016. ??This also shows decreased size since that time. ??Correlate with results from 08/21/2016. ??Repeat FNA could be considered if clinically necessary depending on previous results. 3. ??Heterogeneous thyroid echogenicity with increased vascularity, which can be seen thyroiditis. Narrative 04/21/2020 11:38 AM CDT EXAM DESCRIPTION: ?? US THYROID/NECK REASON FOR STUDY: ?? Postprocedural hypothyroidism TECHNIQUE: ??Ultrasound of the thyroid was performed with grayscale and color doppler. COMPARISON: ?? Thyroid ultrasound 09/18/2018, priors FINDINGS: ??RIGHT: The right thyroid lobe measures ??3.3 x 1.3 x 1.3 cm. ??Heterogeneous echogenicity. Nodule 1: Hypoechoic predominantly solid 10 mm nodule. ??Well-defined margins. ??Wider than tall. ??No echogenic foci. ??This measured 9 mm on prior and 10 mm on 07/22/2016. LEFT: The left thyroid lobe measures ??3.7 x 1.2 x 1.3 cm. ?? Heterogeneous echogenicity. Nodule 1: Isoechoic and hypoechoic solid appearing 11 mm nodule. ?? Well-defined margins. ??Taller than wide. ??No echogenic foci. ??This measured 10 mm on prior and 1.9 cm on 07/22/2016. ISTHMUS: The isthmus measures ??2.4 mm in AP dimension. ??The isthmus is normal in echotexture. VASCULARITY: ??Increased. OTHER: ??No other significant finding. THIS IS AN ELECTRONICALLY VERIFIED FINAL REPORT 04/21/2020 11:35 AM - Electronically signed by Moris Solorzano M.D. JR: D: ??04/21/2020 11:35 AM T: ??04/21/2020 11:35 AM Report ID: [id number] Reading Location: ??[id number] Procedure Note Moris Solorzano MD - 04/21/2020 EXAM DESCRIPTION: US THYROID/NECK REASON FOR STUDY: Postprocedural hypothyroidism TECHNIQUE: Ultrasound of the thyroid was performed with grayscale and color doppler. COMPARISON: Thyroid ultrasound 09/18/2018, priors FINDINGS: RIGHT: The right thyroid lobe measures 3.3 x 1.3 x 1.3 cm. Heterogeneous echogenicity. Nodule 1: Hypoechoic predominantly solid 10 mm nodule. Well-defined margins. Wider than tall. No echogenic foci. This measured 9 mm on prior and 10 mm on 07/22/2016. LEFT: The left thyroid lobe measures 3.7 x 1.2 x 1.3 cm. Heterogeneous echogenicity. Nodule 1: Isoechoic and hypoechoic solid appearing 11 mm nodule. Well-defined margins. Taller than wide. No echogenic foci. This measured 10 mm on prior and 1.9 cm on 07/22/2016. ISTHMUS: The isthmus measures 2.4 mm in AP dimension. The isthmus is normal in echotexture. VASCULARITY: Increased. OTHER: No other significant finding. THIS IS AN ELECTRONICALLY VERIFIED FINAL REPORT 04/21/2020 11:35 AM - Electronically signed by Moris Solorzano M.D. JR: Report ID: [id number] Reading Location: [id number] IMPRESSION: 1. Predominantly solid right thyroid nodule, stable dating back to 07/22/2016. TIRADS 4. Follow-up in 12 months recommended. 2. Solid left thyroid nodule. This meets criteria for TIRADS 7 on current ultrasound although ultrasound guided FNA was previously performed on 08/21/2016. This also shows decreased size since that time. Correlate with results from 08/21/2016. Repeat FNA could be considered if clinically necessary depending on previous results. 3. Heterogeneous thyroid echogenicity with increased vascularity, which can be seen thyroiditis. us Liliya Rai MD IMG US ORDERABLES Final Result documented in this encounter Visit Diagnoses Diagnosis Postablative hypothyroidism Other postablative hypothyroidism documented in this encounter Additional Health Concerns Assessment Noted Time PHQ-9 Depression Total Score: 0 08/30/20 19 3:00 PM RN POST PARTUM documented as of this encounter Care Teams Out Of Town Collection Clerk Relationship Specialty Start Date End Date Cate Patel MD PCP - General Family Medicine 07/25/15 12/10/20 documented as of this encounter
--- OUTSIDE RECORDS SUMMARY | 2024-09-21 04:19 | XMS_ITS | Encounter Summary ---
Author Organization [facility] Address [address] [place] [address] Phone Care Team Providers Care Leather Sprayer Name Role Phone Cate Patel MD Primary Care Provider + [phone] Reason for Referral * Radiology Services (Routine) - Closed Specialty Diagnoses / Procedures Referred By Contac t Referred To Contact Radiology Diagnoses Postablative hypothyroidism Procedures US THYROID/NECK Liliya Rai MD #[address] [address] Phone: tel: fax: Referral ID Status Reason Start Date Expiration Date Visits Re quested Visits Authorized [id number] Closed 04/06/2020 1 1 Reason for Visit * Reason Comments Thyroid Problem Follow up Encounter Details Date Type Department Care Team (Latest Contact Info) Description 04/06/2020 9:15 AM CDT Office Visit [facility] - Endocrinology - [place] [address] [place] [address] Liliya Rai MD #[address] [phone] Postablative hypothyroidism (Primary Dx); Thyroid nodule; Pituitary tumor; Class 3 severe obesity due to excess [...] Reading Time Taken Comments Blood Pressure 112/68 04/06/2020 9:06 AM CDT Pulse 85 04/06/2020 9:06 AM CDT Temperature 36.3 ??C (97.4 ??F) 04/06/2020 9:06 AM CD T Respiratory Rate 18 04/06/2020 9:06 AM CDT Oxygen Saturation 98% 04/06/2020 9:06 AM CDT Inhaled Oxygen Concentration - - Weight 110.2 kg (243 lb) 04/06/2020 9:06 AM CDT Height 157.5 cm (5' 2 ) 04/06/2020 9:06 AM CDT Body Mass Index 44.45 04/06/2020 9:06 AM CDT documented in this encounter Patient Instructions * Patient Instructions* Liliya Rai MD - 04/06/2020 9:15 AM CDT Please continue levothyroxine 75 mcg daily Arrangement will be made for thyroid ultrasound Additional steps in management to be determined once result is available for review Follow up visit in 6 months documented in this encounter Progress Notes * Liliya Rai MD - 04/06/2020 9:15 AM CDT CC: Hypothyroidism Ms. Boss is a 74-year-old female who comes to the Endocrinology Offices to review laboratory testresults and discuss management of hypothyroidism. Other pertinent health history includes pituitarytumor, hyperthyroidism s/p PAINTER in 2008, dyslipidemia, and obesity. The patient takes levothyroxine 75 mcg daily for management of primary hypothyroidism. The patient reports that she takes thyroxine on an empty stomach with water as intended. The patient denied missing doses, and she also denied symptoms that would be worrisome for thyroid hormone over-replacementor under- replacement. Serum TSH checked in February 2020 was 2.5 mIU/L (reference range 0.27 to 4.2). Simultaneously measured free T4 was 1.1 ng/mL (reference range 0.9 to 1.7). Ms. Boss is seeing Dr. Lema (neurosurgery) and Dr[facility]. The patient is scheduled for CT of the sinus and ACTH stimulation test for further evaluation. She still complains of intermittent headache in the left side,but denied nausea, vomiting, or visual field defect. The patient was inially diagnosed with thyroid nodule in September 2015, and subsequent FNA obtainedin 2015 was consistent with benign nodule. Review of Systems Constitutional: Negative for activity change, appetite change. (+) fatigue, (-) unexpected weight change. HENT: Negative for congestion and sinus pressure. Eyes: Negative for pain and visual disturbance. Respiratory: Negative for cough and shortness of breath. Cardiovascular: Negative for chest pain and palpitations. Gastrointestinal: Negative for heat or cold intolerance Endocrine: Negative for polydipsia, polyphagia and polyuria. Neurological: Negative for tingling/numbness. Positive for headaches. Past Medical History Positives Diagnosis Date ??? [...] sleep apnea) cpap ??? Pancreatitis 2012 ??? Sinusitis ??? Spinal stenosis ??? Status [...] Wave Lithotripsy RIGHT-; Surgeon: Neeta Edwards MD; Location:[facility]; Service: ??? OVARY REMOVAL ??? LAKHWINDER AND BSO Fibroids ??? TOTAL KNEE ARTHROPLASTY Bilateral ??? UPPER GASTROINTESTINAL ENDOSCOPY N/A 10/27/2015 Procedure: EGDcol plus dilatation with 54fr. rajan; Surgeon: Talha Catherine DO; Location: [facility]; Service: ??? UPPER GASTROINTESTINAL ENDOSCOPY N/A 06/26/2018 Procedure: EGD: yee test, mild esophageal dysmotility, hiatal hernia, dilation 54 fr rajan; Surgeon: Talha Catherine DO; Location: [facility]; Service: Gastroenterology Social History Socioeconomic History ??? Marital status: Spouse name: Not on file ??? Number of children: 2 ??? Years of education: Not on file ??? Highest education level: Not on file Occupational History ??? Not on file Social Needs ??? Financial resource strain: Not on file ??? Food insecurity: Worry: Not on file Inability: Not on file ??? Transportation needs: Medical: Not on file Non-medical: Not on file Tobacco Use ??? Smoking status: Never Smoker ??? Smokeless tobacco: Never Used Substance and Sexual Activity ??? Alcohol use: No Alcohol/week: 0.0 oz ??? Drug use: No ??? Sexual activity: Not on file Lifestyle ??? Physical activity: Days per week: Not on file Minutes per session: Not on file ??? Stress: Not on file Relationships ??? Social connections: Talks on phone: Not on file Gets together: Not on file Attends nondenominational service: Not on file Active member of club or organization: Not on file Attends meetings of clubs or organizations: Not on file Relationship status: Not on file ??? Intimate partner violence: Fear of current or ex partner: Not on file Emotionally abused: Not on file Physically abused: Not on file Forced sexual activity: Not on file Other Topics Concern ??? Not on file Social History Narrative ??? Not on file Vitals: 04/06/20 0906 BP: 112/68 BP Location: Left Arm BP Position: Sitting BP Cuff Size: Large Pulse: 85 Resp: 18 Temp: 97.4 ??F (36.3 ??C) TempSrc: Tympanic SpO2: 98% Weight: 243 lb (110.2 kg) Height: 5' 2 (1.575 m) Objective: Physical Exam Constitutional: appears well-developed and well-nourished. No acute distress. Head: Normocephalic and atraumatic. Eyes: EOM are normal, Not icteric Neck: Normal range of motion. The patient's neck was supple, and no cervical lymphadenopathy was appreciated. The patient's thyroid was approximately 10 g to 15 g in size. Lymph Node: No cervical, clavicular, or posterior auricular lymphadenopathy Cardiovascular: Normal rate and regular rhythm, No JVD Pulmonary/Chest: Effort normal and breath sounds normal, No use of accessory muscle, No crackles orwheezing Abdominal: Soft, and not tender, Normal bowel sound Musculoskeletal: Normal range of motion, Trace edema. No swollen or erythematous joints, No cyanosis or clubbing Neurological: Alert and oriented to person, place, and time, CN 2-12 grossly intact, No significanttremor noted on arms extended and right biceps reflex is 1+ and with normal relaxation. Skin: Skin is warm and dry, No rash noted. Psychiatric: Normal mood and affect. Judgment normal DIAGNOSTIC DATA: Lab Results Component Value Date TSH 2.550 02/14/2020 T4FREE 1.1 02/14/2020 Lab Results Component Value Date HEMATOCRIT 35.2 (L) 03/17/2020 Lab Results Component Value Date CREATININE 0.85 02/14/2020 GFRNA >60 02/14/2020 CALCIUM 9.7 02/14/2020 SGPTALT 31 02/14/2020 Lab Results Component Value Date SODIUM 138 02/14/2020 POTASSIUM 4.5 02/14/2020 CHLORIDE 99 (L) 02/14/2020 CO2VEN 24 02/14/2020 MAGNESIUM 1.8 04/07/2018 Lab Results Component Value Date CHOLESTEROL 218 (H) 02/14/2020 TRIGLYCRIDES 135 02/14/2020 HDLCHOLESTE 75.3 02/14/2020 LDL 116 02/14/2020 Medical record from [facility]. reviewed Assessment and Plan Ms. 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 The patient appears to be clinically euthyroid, and TSH checked in February 2020was well within the reference range. Treatment consideration was discussed with her at some length.She will continue current medication for management of hypothyroidism. The patient will return for office reevaluation in 6 months. PLAN: 1. Continue LT4 75 mcg daily 2. Contact endocrinology office for symptom that would be worrisome for over- or under-replacement of levothyroxine 3. RTC in 6 months Thyroid nodule PLAN: 1. Arrange surveillance thyroid ultrasound Pituitary tumor PLAN: 1. Await upcoming tests 2. F/U with Dr. Lema and Jony Obesity PLAN: 1. Low calorie diet 2. Avoid snack and beverage between meal and at bedtime Liliya Rai MD 04/06/2020 documented in this encounter Plan of Treatment Not on file documented as of this encounter Results * US THYROID/NECK (04/20/2020 [...] AM T: ??04/21/2020 11:35 AM Report ID: [id number] Reading Location: ??[id number] Procedure Note Moris Solorzano MD - 04/21/2020 [...] by Moris Solorzano M.D. JR: Report ID: [id number] Reading Location: [place] [address] IMPRESSION: 1. 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
--- OUTSIDE RECORDS SUMMARY | 2024-09-21 04:19 | XMS_ITS | Encounter Summary ---
Author Organization [facility] Address [address] [place] [address] Phone Care Team Providers Care Revenue Agent Name Role Phone Cate Patel MD Primary Care Provider [phone] Reason for Visit * Reason Comments Follow-up Encounter Details Date Type Department Care Team (Late st Contact Info) Description 07/20/2020 1:30 PM CDT Office Visit [facility] Oncology Services [address] [place] [phone] Pepe Anthony MD [address] [place] [address] Iron deficiency anemia due to chronic blood [...] have Coronavirus / COVID-19? No / Unsure 08/17/2020 12:56 PM SHIPPER documented as of this encounter Last Filed Vital Signs Vital Sign Reading Time Taken Comments Blood Pressure 128/83 07/20/2020 1:23 PM CDT Pulse 84 07/20/2020 1:23 PM CDT Temperature 36.4 ??C (97.6 ??F) 07/20/2020 1:23 PM CD T Respiratory Rate 20 07/20/2020 1:23 PM CDT Oxygen Saturation 97% 07/20/2020 1:23 PM CDT Inhaled Oxygen Concentration - - Weight 114 kg (251 lb 6.4 oz) 07/20/2020 1:23 PM CDT Height 157.5 cm (5' 2 ) 07/20/2020 1:23 PM CDT Body Mass Index 45.98 07/20/2020 1:23 PM CDT documented in this encounter Progress Notes * Pepe Anthony MD - 07/20/2020 1:30 PM CDT Outpatient Hem/Onc Progress Note PROGRESS NOTE Silvia Boss is a 75 y.o. female seen today for follow-up of iron deficiency anemia. Patient hasbeen seen in this office for chronic anemia secondary to iron deficiency plus component of chronic kidney disease. She reports she has had significant fatigue in the last few weeks. She cannot exercise much secondary to the fatigue.she has persistent headache pituitary tumor. She has been followed b y neurologist at [place]. Denies bleeding. Denies fever, chills or night sweats. Denies weight loss.No dysphagia, nausea/ vomiting or abdominal pain. No chest pain. Reports chronic fatigue which has gotten worse recently. Has not been very active due to COVID restrictions. Has been seeing Dr Lema at [place] for pituitary tumor. No surgical or RT needed yet Has sleep apnea but not using CPAP recently (machine issue). She will discuss with PCP No new bone pains. Right shoulder pain and right hip pain. Needs replacement EGD was done in Oct 2015- showed gastritis, she is on omeprazole . No current heartburn. 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 Now on synthroid 75 mcg PO dailly Not taking oral iron (not able to tolerate) Last IV iron was in April 2019 DIAGNOSIS/TREATMENT HISTORY: Past Medical History Positives Diagnosis Date ??? Autoimmune disease (HCC) VELASQUEZ ??? Bursitis Lt shoulder ??? Colon polyp ??? Depression ??? Diverticula of colon ??? DM (diabetes mellitus) (HCC) diet controlled ??? Dyslipidemia ??? Eczema ??? Esophageal dysmotility ??? Fe deficiency anemia ??? GERD (gastroesophageal reflux disease) ??? Velasquez's disease ??? Hypertension ??? Kidney stone 09/2016 Right ??? Low bone mass ??? Neuropathy, peripheral ??? OA (osteoarthritis) ??? 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 MARY (obstructive sleep apnea) cpap ??? Pancreatitis 2013 ??? Pituitary tumor ??? Sinusitis ??? Spinal [...] Bilateral ??? CATARACT REMOVAL Bilateral 2015 ??? CHOLECYSTECTOMY ??? COLONOSCOPY 12/04/2013 ??? HAMMER TOE SURGERY Right ??? HIP ARTHROPLASTY Left THR ??? HUMERUS SURGERY Right ORIF ??? LAMINECTOMY Lumbar spine ??? LITHOTRIPSY Right 10/01/2016 Procedure: Extracorporeal Shock Wave Lithotripsy RIGHT-; Surgeon: Neeta Edwards MD; Location:[facility]; Service: ??? OVARY REMOVAL ??? LAKHWINDER AND BSO Fibroids ??? TOTAL KNEE ARTHROPLASTY Bilateral ??? UPPER GASTROINTESTINAL ENDOSCOPY N/A 10/27/2015 Procedure: EGDcol plus dilatation with 54fr. rajan; Surgeon: Talha Catherine DO; Location: [facility]; Service: ??? UPPER GASTROINTESTINAL ENDOSCOPY N/A 06/26/2018 Procedure: EGD: yee test, mild esophageal dysmotility, hiatal hernia, dilation 54 fr rajan; Surgeon: Talha Catherine DO; Location: [facility]; Service: Gastroenterology Outpatient Medications Marked as Taking for the 07/20/20 encounter (Office Visit) with Pepe Anthony MD Medication Sig Dispense Refill ??? Aspirin 81 MG Tablet Take 81 mg by mouth daily. ??? Calcium Carbonate-Vitamin D (CALCIUM 500 + D PO) Take 1 Tab by mouth daily. ??? Cholecalciferol (VITAMIN D3) 1000 UNIT Tablet Take 1,000 Units by mouth daily. ??? dilTIAZem (Cartia XT) 240 MG CAPSULE [...] ??? Topiramate 50 MG Tablet Take 1 Tab by mouth 2 times daily. 60 Tab 2 ??? Zinc Sulfate (ZINCATE PO) Take 1 Tab by mouth daily. Social History Socioeconomic History ??? Marital status: Spouse name: Not on file ??? Number of children: 2 ??? Years of education: Not on file ??? Highest education level: Not on file Occupational History ??? Not on file Social Needs ??? Financial resource strain: Not on file ??? Food insecurity Worry: Not on file Inability: Not on file ??? Transportation needs Medical: Not on file Non-medical: Not on file Tobacco Use ??? Smoking status: Never Smoker ??? Smokeless tobacco: Never Used Substance and Sexual Activity ??? Alcohol use: No Alcohol/week: 0.0 oz ??? Drug use: No ??? Sexual activity: Not on file Lifestyle ??? Physical activity Days per week: Not on file Minutes per session: Not on file ??? Stress: Not on file Relationships ??? Social connections Talks on phone: Not on file Gets together: Not on file Attends worship service: Not on file Active member of club or organization: Not on file Attends meetings of clubs or organizations: Not on file Relationship status: Not on file ??? Intimate partner violence Fear of current or ex partner: Not on file Emotionally abused: Not on file Physically abused: Not on file Forced sexual activity: Not on file Other Topics Concern ??? Not on file Social History Narrative ??? Not on file Family History Problem Relation Age of Onset ??? Heart Attack Mother ??? Diabetes Mother ??? Hypertension Mother ??? Stroke Mother ??? Arthritis Mother ??? Hypertension Father ??? Emphysema Father ??? Arthritis Father ??? Diabetes Brother x 2 ??? Hypertension Brother ??? Heart Disease Brother x 2 ??? Hypertension Brother ??? Hypertension Sister ??? Hypertension Sister ??? Hypertension Sister ??? Hypertension Sister Allergies as of 07/20/2020 ??? (No Known Allergies) REVIEW OF SYSTEMS Systemic: ++Chronic fatigue. No fever, no chills, no night sweats, and no recent weight change. Head: + headache,+ facial pain, and no sinus pain. Neck: No neck pain, no neck stiffness, and no lump or swelling in the neck. Eyes: No vision problems, no itching of the eyes, and no eye pain. No photophobia. Otolaryngeal: No hearing loss, no earache, no tinnitus, no nasal discharge, no epistaxis, no hoarseness, no sore throat, and no bleeding gums. No mouth sores. Breasts: No breast lump, no nipple discharge, and no pain in breast. Cardiovascular: No chest pain or discomfort, no palpitations. Pulmonary: +Dyspnea during exertion. No cough, no hemoptysis, and no wheezing. Gastrointestinal: Normal appetite, no dysphagia, and no heartburn. No nausea, no vomiting, no abdominal pain, and no melena. No diarrhea. No constipation. Genitourinary: No hematuria and no increase in urinary frequency. No dysuria. No genital lesion. Endocrine: No polydipsia and no excessive sweating. Hematologic: No easy bleeding and no tendency for easy bruising. Musculoskeletal: + muscle aches, no localized joint pain, and no localized joint stiffness. No history of falls. No vertebral fractures in past. Neurological: No dizziness, no vertigo, no fainting, no motor disturbances, and no sensory disturbances. Psychological: + anxiety, no depression, and no sleep disturbances. Skin: No pruritus. No skin lesions and no rash. Physical Exam General: Comfortable, obese, no acute distress. VS reviewed in chart BP 128/83 (BP Location: Left Arm, BP Position: Sitting, BP Cuff Size: Large) Pulse 84 Temp 97.6??F (36.4 ??C) Resp 20 Ht 5' 2 (1.575 m) Wt 251 lb 6.4 oz (114 kg) SpO2 97% BMI 45.98 kg/m?? HEENT: PERRL, EOMI, sclera clear, face symmetric, oral mucosa moist, no lesions of the oral cavity or oropharynx. Neck: supple, no JVD, no thyromegaly or adenopathy. Chest: lungs clear to auscultation and percussion. Spine: no spinal or CVA tenderness. CV: RRR, no murmur or gallop. Peripheral pulses normal Abd: soft, normo-active bowel sounds, non-tender. No masses or organomegaly. Lymphatics: no adenopathy palpable in cervical, supraclavicular, axillary or inguinal regions. Extr: no clubbing, cyanosis or edema. Skin: no petechiae, ecchymoses or rashes Rectal/: deferred Neuro: alert and oriented, speech is fluent. Psychiatric: normal affect PAIN ASSESSMENT: +headaches DATA: Lab Results Component Value Date WBC 9.68 07/17/2020 RBC 3.76 (L) 07/17/2020 HEMOGLOBIN 11.1 (L) 07/17/2020 HEMATOCRIT 35.2 (L) 07/17/2020 MCV 93.6 07/17/2020 MCH 29.5 07/17/2020 MCHC 31.5 07/17/2020 PLATELETCNT 341 07/17/2020 RDW 13.2 07/17/2020 LYMPHOCYTES 12.9 (L) 07/17/2020 RELEOS 2.4 07/17/2020 RELBAS 0.7 07/17/2020 ANC 7.30 07/17/2020 MONOCYTES 0.83 07/17/2020 EOSINOPHILS 0.23 07/17/2020 BASOPHILS 0.07 07/17/2020 Lab Results Component Value Date SODIUM 137 07/17/2020 POTASSIUM 4.5 07/17/2020 CHLORIDE 102 07/17/2020 ANIONGAP 18.5 07/17/2020 GLUCOSE 100 (H) 07/17/2020 BUN 21 07/17/2020 CREATININE 0.99 07/17/2020 TOTALPROTEIN 7.0 07/17/2020 ALBUMIN 4.3 07/17/2020 CALCIUM 10.0 07/17/2020 SGPTALT 12 07/17/2020 ALKALINEPHO 66 07/17/2020 No components found for: FOLATE Lab Results Component Value Date ZOPAGGEH39 931 (H) 07/17/2020 Lab Results Component Value Date TROPONINI <0.300 04/07/2018 Lab Results Component Value Date FERRITIN 106 07/17/2020 No results found for: PHARTERIAL, PO2ART, QWQ3UUV, CO2ART, O2ART No results found for: LACACIDPOCT, LACTICA Lab Results Component Value Date INR 0.9 11/11/2018 PTP 12.1 11/11/2018 Lab Results Component Value Date HGBA1C 5.3 02/14/2020 Lab Results Component Value Date HAPTOGLOBIN 265 12/30/2016 Results for orders placed or performed in visit on 12/30/16 HEMOGLOBIN ELECTROPHORESIS ( & A2) Result Value Ref Range HEMOGLOBIN, 0.1 <2.0 % HGB A2 2.2 1.5 - 3.0 % HEMOGLOBIN A 96 % HB ELECTRO. INTERP Comment: Hemoglobin A. Reviewed by Dr. Leonora Alford, PhD. Verified by Dr. Amos Orellana MD. Lab Results Component Value Date TIBC 357 07/17/2020 Lab Results Component Value Date IRON 43.79 07/17/2020 FERRITIN 106 07/17/2020 Lab Results Component Value Date IRONSATURATI 12 (L) 07/17/2020 Lab Results Component Value Date RETICULOCYTE 2.0 07/17/2020 No results found for: ESR, PRADEEP, RHEUMATOIDFR Lab Results Component Value Date TSH 2.550 02/14/2020 T4FREE 1.1 02/14/2020 SPe 2017- normal PATHOLOGY: Lab Results Component Value Date FINALDX Normal 46,XX[20] 11/11/2018 DIAGNOSTIC IMAGING STUDIES: None new Assessment: 1. Iron deficiency. Recurrent 2. Mild chronic Anemia, multifactorial etiology including chronic kidney disease. Bone marrow bx Nov 2018 unremarkable 3. Hiatal hernia. 4. Pituitary tumor with headache. 5. Hiatal hernia Plan: 1. Reviewed above clinical data including recent clinical symptoms as well as lab results. Iron deficiency with decrease in iron saturation. In addition she has significant fatigue related to that. So I recommend intravenous iron in the form of Injectafer 750 mg x 3 infusions. She has malabsorptionsecondary to chronic kidney disease. Recheck CBC and iron panel in 4 months. 2. I discussed with patient about her risk of recurrent iron deficiency due to hiatal hernia and chronic kidney disease associated functional iron deficiency and compromised iron absorption and utilization. She has had chronic anemia which is multifactorial. 3. I advised patient to follow up with GI for hiatal hernia as well as follow-up EGDs and colonoscopy. 4. She was instructed to follow-up with her primary care physician for management of CPAP, she likely needs a new sleep study. Some of her chronic fatigue could be related to untreated sleep apnea. FU in 5 months The patient was given an opportunity to ask questions, and all questions answered to patient's satisfaction. Patient verbalizes understanding of the plan as outlined above. PER documented in this encounter Miscellaneous Notes * Interdisciplinary - Ev Ocampo - 07/20/2020 1:30 PM CDT The patient has complaints of right shoulder and right hip pain. She also states she has felt more fatigued and has frequent headaches. Pain score is 7/10. documented in this encounter Plan of Treatment Not on file documented as of this encounter Results * IRON W/IRON BINDING CAPACITY (12/11/2020 9:45 AM SHIPPER) IRON 64.73 37 - 145 mcg/dL 12/11/2020 1:36 PM SHIPPER [facility] % SATURATION * 21 20 - 55 % 12/11/2020 1:36 PM SHIPPER [facility] UIBC 237 112 - 346 mcg/dL 12/11/2020 1:36 PM SHIPPER [facility] TIBC CALC 302 149 - 491 mcg/dL 12/11/2020 1:36 PM SHIPPER [facility] Blood Venipuncture / Unknown 12/11/2020 9:45 AM SHIPPER 12/11/2020 12:11 PM SHIPPER Pepe Anthony MD CHEMISTRY ORDERABLES Fin al Result Performing Organization Address City/[facility]/ZIP Co de Phone Number [facility] [place] [address] * (ABNORMAL) FERRITIN (12/11/2020 9:45 AM SHIPPER) FERRITIN 773(H) 13 - 150 ng/mL 12/11/2020 1:36 PM SHIPPER [facility] Blood Venipuncture / Unknown 12/11/2020 9:45 AM SHIPPER 12/11/2020 12:11 PM SHIPPER Pepe Anthony MD CHEMISTRY ORDERABLES Fin al Result Performing Organization Address [facility] Co de Phone Number [facility] [place] [address] * (ABNORMAL) CMP (COMPREHENSIVE METABOLIC PANEL) (12/11/2020 9:45 AM SHIPPER) SODIUM 137 136 - 144 mmol/L 12/11/2020 1:36 PM SHIPPER [facility] POTASSIUM 4.4 3.5 - 5.1 mmol/L 12/11/2020 1:36 PM SHIPPER [facility] CHLORIDE 102 100 - 110 mmol/L 12/11/2020 1:36 PM SHIPPER [facility] CO2, VENOUS 22 22 - 32 mmol/L 12/11/2020 1:36 PM SHIPPER [facility] ANION GAP 17.4 8.0 - 20.0 mmol/L 12/11/2020 1:36 PM SHIPPER [facility] GLUCOSE 96 70 - 99 mg/dL 12/11/2020 1:36 PM SHIPPER [facility] BUN 49(H) 8 - 23 mg/dL 12/11/2020 1:36 PM [facility] CREATININE, BLOOD 1.29(H) 0.60 - 1.10 mg/dL 12/11/2020 1:36 PM [facility] BUN/CREATININE RATIO 38(H) 12 - 20 ratio 12/11/2020 1:36 PM [facility] TOTAL PROTEIN 7.6 6.0 - 8.3 g/dL 12/11/2020 1:36 PM [facility] ALBUMIN 4.8 3.5 - 5.2 g/dL 12/11/2020 1:36 PM [facility] Comment: The colormetric methods used for the determination of Albumin may lead to falsely elevated test results in patients suffering from renal failure or insufficiency due to interference with other proteins. A/G RATIO 1.7 1.0 - 2.0 12/11/2020 1:36 PM [facility] CALCIUM 9.7 8.9 - 10.3 mg/dL 12/11/2020 1:36 PM [facility] T BILI 0.3 <=1.2 mg/dL 12/11/2020 1:36 PM [facility] SGOT (AST) 12 <=32 U/L 12/11/2020 1:36 PM [facility] SGPT (ALT) 13 <=41 U/L 12/11/2020 1:36 PM [facility] ALKALINE PHOSPHATASE 78 35 - 105 U/L 12/11/2020 1:36 PM [facility] GFR, EST. NONAFRICAN 41(L) >=60 12/11/2020 1:36 PM [facility] GFR, EST. 49(L) >=60 021 1:36 PM [facility] Comment: Creatinine Clearance is the preferred criteria for selecting drug dose adjustments in renally impaired patients. ??The GFR is provided as additional pertinent clinical information. GFR is reported in mL/min/1.73 sq m. IS THE PATIENT REQUIRED TO BE FASTING? No 12/11/2020 1:36 PM SHIPPER [facility] Blood Venipuncture / Unknown 12/11/2020 9:45 AM SHIPPER 12/11/2020 12:11 PM SHIPPER us Pepe Anthony MD CHEMISTRY ORDERABLES Fin al Result [facility] [address] [place] [address] documented in this encounter Visit Diagnoses Diagnosis Iron deficiency anemia due to chronic blood loss- Primary Iron deficiency anemia secondary to blood loss (chronic) CKD (chronic kidney disease) stage 1, GFR 90 ml/min or greater Chronic kidney disease, Stage I documented in this encounter Additional Health Concerns Assessment Noted Time PHQ-9 Depression Total Score: 0 08/30/20 19 3:00 PM SHIPPER documented as of this encounter Care Teams Revenue Agent Relationship Specialty Start Date End Date Cate Patel MD PCP - General Family Medicine 07/25/15 12/10/20 documented as of this encounter
--- OUTSIDE RECORDS SUMMARY | 2024-09-21 04:19 | XMS_ITS | Encounter Summary ---
Author Organization [employer] Care Team Providers Care Motor Vehicle Assembler Name Role Phone Cate Patel MD Primary Care Provider Encounter Details Date Type Department Care Team (Latest Contact Info) Description 08/03/2020 Travel Social History Tobacco Use Types Packs/Day [...] have Coronavirus / COVID-19? No / Unsure 08/03/2020 1:01 PM CDT documented as of this encounter Plan of Treatment Not on file documented as of this encounter Visit Diagnoses Not on filedocumented in this encounter Additional Health Concerns Assessment Noted Time PHQ-9 Depression Total Score: 0 08/30/20 19 3:00 PM BRAILLE OPERATOR documented as of this encounter Care Teams Motor Vehicle Assembler Relationship Specialty Start Date End Date Cate Patel MD PCP - General Family Medicine 07/25/15 12/10/20 documented as of this encounter
--- OUTSIDE RECORDS SUMMARY | 2024-09-21 04:19 | XMS_ITS | Encounter Summary ---
Author Organization [facility] Address [address] [place] [address] Phone Care Team Providers Care Employment Officer Name Role Phone Cate Patel MD Primary Care Provider [phone] Reason for Referral * Radiology Services (Routine) - Closed Specialty Diagnoses / Procedures Referred By Contac t Referred To Contact Radiology Diagnoses Breast cancer screening by mammogram Procedures POLI SCREENING BILATERAL DIGITAL W CAD W Cate Stovall MD Phone: tel: fax: Referral ID Status Reason Start Date Expiration Date Visits Re quested Visits Authorized [id number] Closed 02/17/2020 1 1 Reason for Visit * Radiology Services (Routine) - Closed Specialty Diagnoses / Procedures Referred By Contac t Referred To Contact Radiology Diagnoses Breast cancer screening by mammogram Procedures POLI SCREENING BILATERAL DIGITAL W CAD W Cate Stovall MD Phone: tel: fax: Referral ID Status Reason Start Date Expiration Date Visits Re quested Visits Authorized [id number] Closed 02/17/2020 1 1 Encounter Details Date Type Department Care Team (Latest Contact Info) Description 04/20/2020 10:00 AM CDT - 04/20/2020 10:51 AM CDT Hospital Encounter [facility] Mammography [address] [place] [id number] Cate Patel MD [address] [place] [address] Discharge Disposition: Discharged to home or Selfcare [...] Procedure Name Priority Date/Time Associated Diagnosis Comments POLI SCREENING BILATERAL DIGITAL W CAD W YAYA Routine 04/20/2020 11:07 AM CDT Breast cancer screening by mammogram documented in this encounter Results * POLI SCREENING BILATERAL DIGITAL W CAD [...] to exams dated: ??04/18/2018, 07/22/2016, and 01/02/2015 [facility]. ?? BREAST TISSUE:There are scattered fibroglandular densities [...] Mele Macedo M.D. ? ll/penrad:04/23/2020 15:55:32 ?? Cottage Supervisor: Fernanda RAMOS)(Abad), [facility] letter sent: Normal Exam ?? Reading location: [facility] BI-RADS: 2 Benign Procedure Note Mele [...] to exams dated: 04/18/2018, 07/22/2016, and 01/02/2015 [facility]. BREAST TISSUE:There are scattered fibroglandular densities in [...] exam. Electronically signed by: Mele gupta/giovanny:04/23/2020 15:55:32 Cottage Supervisor: Fernanda Paredes RT(Rosetta)(M), [facility] letter sent: Normal Exam Reading location: [facility] BI-RADS: 2 Benign us Cate Patel MD IMG MAMMO ORDERABLES Final R esult documented in this encounter Visit Diagnoses Diagnosis Breast cancer screening by mammogram documented in this encounter Additional Health Concerns Assessment Noted Time PHQ-9 Depression Total Score: 0 08/30/20 19 3:00 PM BEFORE AND AFTER SCHOOL DAYCARE WORKER documented as of this encounter Care Teams Employment Officer Relationship Specialty Start Date End Date Cate Patel MD PCP - General Family Medicine 07/25/15 12/10/20 documented as of this encounter
--- OUTSIDE RECORDS SUMMARY | 2024-09-21 04:19 | XMS_ITS | Encounter Summary ---
Author Organization [employer] Care Team Providers Care Marriage Counselor Name Role Phone Cate Patel MD Primary Care Provider [phone] Encounter Details Date Type Department Care Team (Latest Contact Info) Description 02/14/2020 Travel Social History Tobacco Use Types Packs/Day [...] have Coronavirus / COVID-19? No / Unsure 02/14/2020 9:57 AM CDT documented as of this encounter Plan of Treatment Not on file documented as of this encounter Visit Diagnoses Not on filedocumented in this encounter Additional Health Concerns Assessment Noted Time PHQ-9 Depression Total Score: 0 08/30/20 19 3:00 PM EVENT OPERATIONS MANAGER documented as of this encounter Care Teams Marriage Counselor Relationship Specialty Start Date End Date Cate Patel MD PCP - General Family Medicine 07/25/15 12/10/20 documented as of this encounter
--- OUTSIDE RECORDS SUMMARY | 2024-09-21 04:19 | XMS_ITS | Encounter Summary ---
Author Organization [facility] Care Team Providers Care Calculus Teacher Name Role Phone Cate Patel MD Primary Care Provider [phone] Encounter Details Date Type Department Care Team (Latest Contact Info) Description 07/17/2020 Travel Social History Tobacco Use Types Packs/Day [...] have Coronavirus / COVID-19? No / Unsure 07/17/2020 9:27 AM CDT documented as of this encounter Plan of Treatment Not on file documented as of this encounter Visit Diagnoses Not on filedocumented in this encounter Additional Health Concerns Assessment Noted Time PHQ-9 Depression Total Score: 0 08/30/20 19 3:00 PM CLERK GENERAL OFFICE documented as of this encounter Care Teams Calculus Teacher Relationship Specialty Start Date End Date Cate Patel MD PCP - General Family Medicine 07/25/15 12/10/20 documented as of this encounter
--- OUTSIDE RECORDS SUMMARY | 2024-09-21 04:19 | XMS_ITS | Encounter Summary ---
Author Organization [employer] Care Team Providers Care Cardiac Cath Technologist Name Role Phone Cate Patel MD Primary Care Provider [phone] Encounter Details Date Type Department Care Team (Latest Contact Info) Description 03/20/2020 Travel Social History Tobacco Use Types Packs/Day [...] have Coronavirus / COVID-19? No / Unsure 03/20/2020 1:38 PM CDT documented as of this encounter Plan of Treatment Not on file documented as of this encounter Visit Diagnoses Not on filedocumented in this encounter Additional Health Concerns Assessment Noted Time PHQ-9 Depression Total Score: 0 08/30/20 19 3:00 PM TRADING ASSISTANT documented as of this encounter Care Teams Cardiac Cath Technologist Relationship Specialty Start Date End Date Cate Patel MD PCP - General Family Medicine 07/25/15 12/10/20 documented as of this encounter
--- OUTSIDE RECORDS SUMMARY | 2024-09-21 04:19 | XMS_ITS | Encounter Summary ---
Author Organization [facility] Address [address] [place] [address] Phone Care Team Providers Care Jitney Driver Name Role Phone Cate Patel MD Primary Care Provider [phone] Reason for Visit * Reason Comments Follow-up Encounter Details Date Type Department Care Team (Late st Contact Info) Description 03/20/2020 1:45 PM CDT Office Visit [facility] [address] [place] [id number] Pepe Anthony MD [address] [place] [address] Iron deficiency anemia, unspecified iron deficiency anemia type (Primary Dx); Iron deficiency anemia due to chronic blood loss; CKD (chronic kidney disease) stage 1, GFR 90 ml/min or greater; Sleep apnea, unspecified type; Chronic fatigue Discharge Disposition: Discharged to home or Selfcare [...] PM CDT documented as of this encounter Progress Notes * Pepe Anthony MD - 03/20/2020 1:45 PM CDT Outpatient Hem/Onc Progress Note PROGRESS NOTE Silvia Boss is a 74 y.o. female seen today to transfer care from Dr. Forte. Patient has been seenin this office for chronic anemia secondary to iron deficiency plus component of chronic kidney disease.She reports more fatigue and persistent headache pituitary tumor. She has been followed by neurologist at [place]. Denies bleeding. Denies fever, chills or night sweats. Denies weight loss. No dysphagia, nausea/ vomiting or abdominal pain. No chest pain. Reports chronic fatigue which has gotten worse recently. Has not been very active due to COVID restrictions. Some recent nausea which she attributes to recent prednisone for bug bite on right face. Has been seeing Dr Lema at [place] for pituitary tumor. Having MRI done later this month for monitoring No surgical or RT needed yet ++headaches chronic Has sleep apnea but not using CPAP [...] Wave Lithotripsy RIGHT-; Surgeon: Neeta Edwards MD; Location:[facility]; Service: ??? OVARY REMOVAL ??? LAKHWINDER AND BSO Fibroids ??? TOTAL KNEE ARTHROPLASTY Bilateral ??? UPPER GASTROINTESTINAL ENDOSCOPY N/A 10/27/2015 Procedure: EGDcol plus dilatation with 54fr. rajan; Surgeon: Talha Catherine DO; Location: [facility]; Service: ??? UPPER GASTROINTESTINAL ENDOSCOPY N/A 06/26/2018 Procedure: EGD: yee test, mild esophageal dysmotility, hiatal hernia, dilation 54 fr rajan; Surgeon: Talha Catherine DO; Location: [facility]; Service: Gastroenterology Outpatient Medications Marked as Taking for the 03/20/20 encounter (Office Visit) with Pepe Anthony MD Medication Sig Dispense Refill ??? Aspirin 81 MG Tablet Take 81 mg by mouth daily. ??? Calcium Carbonate-Vitamin D (CALCIUM 500 + D PO) Take 1 Tab by mouth daily. ??? CARTIA XT 240 MG CAPSULE SR 24 HR TAKE 1 CAPSULE BY MOUTH ONCE DAILY 90 Cap 3 ??? Cholecalciferol (VITAMIN D3) 1000 UNIT Tablet Take 1,000 Units by mouth daily. ??? levothyroxine (SYNTHROID) 75 MCG Tablet TAKE 1 TABLET BY MOUTH ONCE DAILY 90 Tab 3 ??? lisinopril-hydroCHLOROthiazide (PRINZIDE, ZESTORETIC) 20-25 MG Tablet TAKE 1 TABLET BY MOUTH ONCE DAILY 90 Tab 3 ??? Loperamide HCl (IMODIUM A-D) 2 MG Tablet Take 1 Tab by mouth daily as needed. ??? Melatonin 5 MG Capsule Take 5 mg by mouth nightly. ??? omeprazole (PRILOSEC) 40 MG CAPSULE DELAYED RELEASE Take 1 capsule by mouth once daily 90 Cap 2 ??? predniSONE (DELTASONE) 10 MG Tablet Take 4 tab PO daily x 2 days, 3 tab PO daily x 2 days, 2 tab PO daily x 2 day, 1 tab PO daily x 2 days. 20 Tab 0 ??? Zinc Sulfate (ZINCATE PO) Take [...] file Gets together: Not on file Attends jewish service: Not on file Active member of [...] Sister ??? Hypertension Sister Allergies as of 03/20/2020 ??? (No Known Allergies) REVIEW OF SYSTEMS [...] no acute distress. VS reviewed in chart There were no vitals taken for this visit. HEENT: PERRL, EOMI, sclera clear, face symmetric, [...] DATA: Lab Results Component Value Date WBC 9.93 03/17/2020 RBC 3.63 (L) 03/17/2020 HEMOGLOBIN 11.2 (L) 03/17/2020 HEMATOCRIT 35.2 (L) 03/17/2020 MCV 97.0 (H) 03/17/2020 MCH 30.9 03/17/2020 MCHC 31.8 03/17/2020 PLATELETCNT 367 03/17/2020 RDW 12.9 03/17/2020 LYMPHOCYTES 15.8 (L) 03/17/2020 RELEOS 1.3 03/17/2020 RELBAS 0.5 03/17/2020 ANC 7.09 03/17/2020 MONOCYTES 1.09 (H) 03/17/2020 EOSINOPHILS 0.13 03/17/2020 BASOPHILS 0.05 03/17/2020 Lab Results Component Value Date SODIUM 138 02/14/2020 POTASSIUM 4.5 02/14/2020 CHLORIDE 99 (L) 02/14/2020 ANIONGAP 19.5 02/14/2020 GLUCOSE 96 02/14/2020 BUN 30 (H) 02/14/2020 CREATININE 0.85 02/14/2020 TOTALPROTEIN 7.5 02/14/2020 ALBUMIN 4.3 02/14/2020 CALCIUM 9.7 02/14/2020 SGPTALT 31 02/14/2020 ALKALINEPHO 71 02/14/2020 No components found for: FOLATE Lab Results Component Value Date OBCMVIWX30 925 (H) 06/24/2018 Lab Results Component Value Date TROPONINI <0.300 04/07/2018 Lab Results Component Value Date FERRITIN 376 (H) 03/17/2020 No results found for: PHARTERIAL, PO2ART, HOP6HEH, CO2ART, O2ART No results found for: LACACIDPOCT, [...] MD. Lab Results Component Value Date TIBC 293 03/17/2020 Lab Results Component Value Date IRON 59.82 03/17/2020 FERRITIN 376 (H) 03/17/2020 Lab Results Component Value Date IRONSATURATI 20 03/17/2020 Lab Results Component Value Date RETICULOCYTE 1.9 06/24/2018 No results found for: ESR, PRADEEP, RHEUMATOIDFR Lab Results Component Value Date TSH 2.550 02/14/2020 T4FREE 1.1 02/14/2020 SPe 2017- normal PATHOLOGY: Lab Results Component Value Date FINALDX Normal 46,XX[20] 11/11/2018 DIAGNOSTIC IMAGING STUDIES: None new Assessment: 1. Iron deficiency. Resolved after IV iron therapy. 2. Mild chronic Anemia, multifactorial etiology including chronic kidney disease. Bone marrow bx Nov 2018 unremarkable 3. Hiatal hernia. 4. Pituitary tumor with headache. 5. Hiatal hernia Plan: 1. Reviewed above clinical data including clinical symptoms and recent lab results. Hemoglobin is stable currently around 11.4 grams/deciliter. Normal iron, iron saturation and ferritin levels at this time. Bone marrow biopsy done last year was unremarkable. Discussed with patient that she does notneed IV iron replacement at this time. However due to mild chronic kidney disease as well as hiatalhernia, she is at high risk for recurrent iron deficiency. Recheck CBC and iron panel in 4 [...] related to untreated sleep apnea. FU in 4 months The patient was given an opportunity to ask questions, and all questions answered to patient's satisfaction. Patient verbalizes understanding of the plan as outlined above. documented in this encounter Miscellaneous Notes * Interdisciplinary - Ev Ocampo - 03/20/2020 1:45 PM CDT The patient states she has lower back and bilateral knee pain. Pain score is 5/10 during today's visit. documented in this encounter Plan of Treatment Not on file documented as of this encounter Results * (ABNORMAL) IRON W/IRON BINDING CAPACITY (07/17/2020 9:47 AM CDT) IRON 43.79 37 - 145 mcg/dL 07/17/2020 12:40 PM CDT [facility] % SATURATION * 12(L) 20 - 55 % 07/17/2020 12:40 PM CDT [facility] UIBC 313 112 - 346 mcg/dL 07/17/2020 12:40 PM CDT [facility] TIBC CALC 357 149 - 491 mcg/dL 07/17/2020 12:40 PM CDT [facility] Blood Venipuncture / Unknown 07/17/2020 9:47 AM CDT 07/17/2020 11:50 AM CDT us Pepe Anthony MD CHEMISTRY ORDERABLES Fin al Result [facility] [place] [address] * LACTATE DEHYDROGENASE (LD) (07/17/2020 9:47 AM CDT) LDH 199 135 - 214 U/L 07/17/2020 12:40 PM CDT [facility] Blood Venipuncture / Unknown 07/17/2020 9:47 AM CDT 07/17/2020 11:50 AM CDT Pepe Anthony MD CHEMISTRY ORDERABLES Fin al Result Performing Organization Address City/[facility]/ZIP Co de Phone Number [facility] [place] [address] * RETICULOCYTE COUNT (RETIC) (07/17/2020 9:47 AM CDT) RETICULOCYTES 2.0 0.5 - 2.0 % 07/17/2020 11:54 AM CDT [facility] Blood Venipuncture / Unknown 07/17/2020 9:47 AM CDT 07/17/2020 11:45 AM CDT Pepe Anthony MD HEMATOLOGY ORDERABLES Fi nal Result Performing Organization Address [facility] Co de Phone Number [facility] [place] [address] * (ABNORMAL) VITAMIN B12 (07/17/2020 9:47 AM CDT) VITAMIN B12 931(H) 243 - 894 pg/mL 07/17/2020 12:45 PM CDT [facility] Blood Venipuncture / Unknown 07/17/2020 9:47 AM CDT 07/17/2020 11:47 AM CDT Pepe Anthony MD CHEMISTRY ORDERABLES Fin al Result Performing Organization Address City/[facility]/ZIP Co de Phone Number [facility] [place] [address] * FERRITIN (07/17/2020 9:47 AM CDT) FERRITIN 106 13 - 150 ng/mL 07/17/2020 12:40 PM CDT [facility] Blood Venipuncture / Unknown 07/17/2020 9:47 AM CDT 07/17/2020 11:50 AM CDT us Pepe Anthony MD CHEMISTRY ORDERABLES Fin al Result [facility] [place] [address] * (ABNORMAL) CMP (COMPREHENSIVE METABOLIC PANEL) (07/17/2020 9:47 AM CDT) SODIUM 137 136 - 144 mmol/L 07/17/2020 12:40 PM CDT [facility] POTASSIUM 4.5 3.5 - 5.1 mmol/L 07/17/2020 12:40 PM CDT [facility] CHLORIDE 102 100 - 110 mmol/L 07/17/2020 12:40 PM CDT [facility] CO2, VENOUS 21(L) 22 - 32 mmol/L 07/17/2020 12:40 PM CDT [facility] ANION GAP 18.5 8.0 - 20.0 mmol/L 07/17/2020 12:40 PM CDT [facility] GLUCOSE 100(H) 70 - 99 mg/dL 07/17/2020 12:40 PM CDT [facility] BUN 21 8 - 23 mg/dL 07/17/2020 12:40 PM CDT [facility] CREATININE, BLOOD 0.99 0.60 - 1.10 mg/dL 07/17/2020 12:40 PM CDT [facility] BUN/CREATININE RATIO 21(H) 12 - 20 ratio 07/17/2020 12:40 PM CDT [facility] TOTAL PROTEIN 7.0 6.0 - 8.3 g/dL 07/17/2020 12:40 PM CDT [facility] ALBUMIN 4.3 3.5 - 5.2 g/dL 07/17/2020 12:40 PM CDT [facility] Comment: The colormetric methods used for the determination of Albumin may lead to falsely elevated test results in patients suffering from renal failure or insufficiency due to interference with other proteins. A/G RATIO 1.6 1.0 - 2.0 07/17/2020 12:40 PM CDT [facility] CALCIUM 10.0 8.9 - 10.3 mg/dL 07/17/2020 12:40 PM CDT [facility] T BILI <=0.2 <=1.2 mg/dL 07/17/2020 12:40 PM CDT [facility] SGOT (AST) 16 <=32 U/L 07/17/2020 12:40 PM CDT [facility] SGPT (ALT) 12 <=33 U/L 07/17/2020 12:40 PM CDT [facility] ALKALINE PHOSPHATASE 66 35 - 105 U/L 07/17/2020 12:40 PM CDT [facility] GFR, EST. NONAFRICAN 55(L) >=60 07/17/2020 12:40 PM CDT [facility] GFR, EST. >60 >=60 020 12:40 PM CDT [facility] Comment: Creatinine Clearance is the preferred criteria for selecting drug dose adjustments in renally impaired patients. ??The GFR is provided as additional pertinent clinical information. GFR is reported in mL/min/1.73 sq m. Blood Venipuncture / Unknown 07/17/2020 9:47 AM CDT 07/17/2020 11:50 AM CDT Pepe Anthony MD CHEMISTRY ORDERABLES Fin al Result [facility] [place] [address] documented in this encounter Visit Diagnoses Diagnosis Iron deficiency anemia, unspecified iron deficiency anemia type- Primary Iron deficiency anemia due to chronic blood loss Iron deficiency anemia secondary to blood loss (chronic) CKD (chronic kidney disease) stage 1, GFR 90 ml/min or greater Chronic kidney disease, Stage I Sleep apnea, unspecified type Chronic fatigue Other malaise and fatigue documented in this encounter Additional Health Concerns Assessment Noted Time PHQ-9 Depression Total Score: 0 08/30/20 19 3:00 PM VISITOR SERVICES TECHNICIAN documented as of this encounter Care Teams Jitney Driver Relationship Specialty Start Date End Date Cate Patel MD PCP - General Family Medicine 07/25/15 12/10/20 documented as of this encounter
--- OUTSIDE RECORDS SUMMARY | 2024-09-21 04:19 | XMS_ITS | Encounter Summary ---
Author Organization [facility] Care Team Providers Care Sheet Pile Driver Operator Name Role Phone Cate Patel MD Primary Care Provider [phone] Encounter Details Date Type Department Care Team (Latest Contact Info) Description 08/17/2020 Travel Social History Tobacco Use Types Packs/Day [...] COVID-19? No / Unsure 08/17/2020 12:56 PM JOURNEYMAN MILLWRIGHT documented as of this encounter Plan of Treatment Not on file documented as of this encounter Visit Diagnoses Not on filedocumented in this encounter Additional Health Concerns Assessment Noted Time PHQ-9 Depression Total Score: 0 08/30/20 19 3:00 PM JOURNEYMAN MILLWRIGHT documented as of this encounter Care Teams Sheet Pile Driver Operator Relationship Specialty Start Date End Date Cate Patel MD PCP - General Family Medicine 07/25/15 12/10/20 documented as of this encounter
--- OUTSIDE RECORDS SUMMARY | 2024-09-21 04:19 | XMS_ITS | Encounter Summary ---
Author Organization [facility] Address [address] [place] [address] Phone Care Team Providers Care Economic Development Specialist Name Role Phone Cate Patel MD Primary Care Provider Reason for Visit * Reason Comments Insect Bite Encounter Details Date Type Department Care Team (Late st Contact Info) Description 03/12/2020 8:30 AM CDT [facility] [address] [place] [address] Traci Grover, PIPE BENDING MACHINE OPERATOR, VENEER CLIPPER HELPER [address] [place] [address] Bug bite, initial encounter (Primary Dx) Discharge Disposition: Discharged to home [...] Sign Reading Time Taken Comments Blood Pressure 140/84 03/12/2020 8:34 AM CDT Pulse 101 03/12/2020 8:34 AM CDT Temperature 37.2 ??C (98.9 ??F) 03/12/2020 8:34 AM CD T Respiratory Rate - - Oxygen Saturation 97% 03/12/2020 8:34 AM CDT Inhaled Oxygen Concentration - - Weight 111.1 kg (245 lb) 03/12/2020 8:34 AM CDT Height 157.5 cm (5' 2 ) 03/12/2020 8:34 AM CDT Body Mass Index 44.81 03/12/2020 8:34 AM CDT documented in this encounter Patient Instructions * Patient Instructions* Traci Grover APN, VENEER CLIPPER HELPER - 03/12/2020 8:30 AM CDT Images from the original note were not included. Insect Bite Some insects sting to protect themselves or their nests. These include bees, wasps, ants, and hornets. A sting causes a sharp burning pain. Other insects bite to feed. These include fleas, bedbugs, and mosquitoes. In some cases, the actual bite causes no pain. But after the bite there may be a local reaction. Both bites and stings can cause a local reaction that is an itchy red welt or swelling at the site. Most insect bites and stings don't cause illness. And the itching and swelling most often go away without treatment. But an infection can develop if the bite is scratched and the skin broken. If a stinger is visible at the bite spot, remove it as quickly as possible. This can reduce the amount of venom that gets into your body. Scrape it out with a dull edge, such as the edge of a credit card. Try not to squeeze it. Don't try to dig it out. You may damage the skin and also increase the chance of infection. In rare cases, a person may have an allergic reaction to an insect bite or sting. You can have a severe allergic reaction the first time you are bitten or stung. Severe allergic reactions are called anaphylaxis. This is a medical emergency. If you have symptoms listed below after a bite or a sting,have someone call 911. Symptoms of an allergic reaction often develop quickly and include: ?? Skin symptoms, such as hives, redness, or swelling away from the area that was stung. For example, the face or lips may swell after being stung on the hand. ?? Belly cramps, nausea, vomiting, or diarrhea ?? Hoarse voice, shortness of breath, and trouble breathing ?? Lightheadedness, dizziness, or passing out To help reduce swelling and itching, apply a cold pack or ice in a zip-top plastic bag wrapped in athin towel. Home care ?? For local reactions to stings or bites, your healthcare provider may prescribe [id number] medicines such as calamine lotion or antihistamines. These can help ease itching and swelling. Use each medicine according to the directions on the package. If the sting or bite gets infected, you will need an antibiotic. This may be in pill form taken by mouth. Or it may be as an ointment or cream put directly on the skin. Be sure to use them exactly as prescribed. ?? Bite symptoms often go away on their own in a week or two. ?? To help prevent infection, don't scratch or pick at the bite. ?? To help ease itching and swelling, apply ice to the bites. Do this for up to 10 minutes at a time. Don't take hot showers or baths. These often make itching worse. To make an ice pack, put ice cubes in a zip-top plastic bag that seals at the top. Wrap the bag in a clean, thin towel or cloth. Never put ice or an ice pack directly on the skin. ?? If you think you have insects in your home, talk with a licensed pest-control professional. He or she can inspect your home and tell you how to get rid of bugs safely. Follow-up care Follow up with your healthcare provider, or??as advised. Call 911 Call 911 if any of these occur: ?? Trouble breathing or swallowing ?? Wheezing ?? Feeling like your throat is closing up ?? Fainting, loss of consciousness ?? Swelling around the face or mouth When to get medical advice Call your healthcare provider right away if any of these occur: ?? Fever of 100.4??F (38??C) or higher, or as directed by your healthcare provider ?? Signs of infection, such as increased swelling and pain, warmth, red streaks, or drainage from the skin ?? Signs of allergic reaction, such as hives, a spreading rash, or throat itching [employer] last reviewed this educational content on 05/06/2019 ?? [id number] [employer]. [address] [place] [address]. All rights reserved. This information is not intended as a substitute for professional medical care. Always follow your healthcare professional's instructions. Steroid injection given in office Take 50 mg of benadryl once home. May take benadryl every 6-8 hours as needed for itching and swelling Start pred taper as prescribed tomorrow 03/13/2020 Apply cold compress to area Monitor for signs and symptoms of infection If symptoms worsen go to the ER documented in this encounter Progress Notes * Vira Moreland, RTR - 03/12/2020 8:30 AM CDT Pt. Was Bit by an unknown bug 2 days ago. Pt began feeling pain and swelling of face neck and head yesterday morning. PT did take benadryl yesterday. * Calli Dela Cruz RMA - 03/12/2020 8:30 AM CDT Per order of FINA Krueger, patient was administered Steroid via IM injection. Patient tolerated injection well without incident. Please see immunizations for more information. documented in this encounter H&P Notes * Traci Grover APN, CNP - 03/12/2020 8:30 AM CDT Images from the original note were not included. Subjective: Silvia Boss is a 74 y.o. female in the [facility] today for bug bite to face. Symptoms started 1 day ago (woke up Friday morning) Severity of symptoms is moderate, worsening Associated symptoms include bite, swelling and erythema Patient is currently taking over the counter benadryl x 1 dose for the symptoms. Smoker: No Pertinent Past, family, or social history was noted Review of Systems Skin: Positive for color change. Bug bite to tenriism All other systems reviewed and are negative. Objective: Physical Exam Vitals signs and nursing note reviewed. Constitutional: Appearance: Normal appearance. HENT: Head: Normocephalic. Neck: Musculoskeletal: Normal range of motion and neck supple. Cardiovascular: Rate and Rhythm: Normal rate and regular rhythm. Pulmonary: Effort: Pulmonary effort is normal. Breath sounds: Normal breath sounds. Musculoskeletal: Normal range of motion. Skin: General: Skin is warm and dry. Neurological: Mental Status: She is alert and oriented to person, place, and time. Psychiatric: Mood and Affect: Mood normal. Behavior: Behavior normal. Thought Content: Thought content normal. Judgment: Judgment normal. Assessment and Plan 1. Bug bite, initial encounter Steroid injection given in office Take 50 mg of benadryl once home. May take benadryl every 6-8 hours as needed for itching and swelling Start pred taper as prescribed tomorrow 03/13/2020 Apply cold compress to area Monitor for signs and symptoms of infection If symptoms worsen go to the ER - methylPREDNISolone acetate (DEPO-MEDROL) 80 MG/ML Suspension; 0.75 mL by Intramuscular route oncefor 1 dose. Dispense: 0.75 mL; Refill: 0 - METHYLPREDNISOLONE (DEPO MEDROL) 60 MG INJ - predniSONE (DELTASONE) 10 MG Tablet; Take 4 tab PO daily x 2 days, 3 tab PO daily x 2 days, 2 tabPO daily x 2 day, 1 tab PO daily x 2 days. Dispense: 20 Tab; Refill: 0 documented in this encounter Plan of Treatment Not on file documented as of this encounter Visit Diagnoses Diagnosis Bug bite, initial encounter- Primary documented in this encounter Administered Medications Administered Medications Medication Order MAR Action Action Date Dose Rate Site Methylprednisolone (Depo Medrol) 60mg Intramuscular Given 03/12/2020 08:51 CDT 60 mg Right ve ntrogluteal documented in this encounter Additional Health Concerns Assessment Noted Time PHQ-9 Depression Total Score: 0 08/30/20 19 3:00 PM MASTICATOR documented as of this encounter Care Teams Economic Development Specialist Relationship Specialty Start Date End Date Cate Patel MD PCP - General Family Medicine 07/25/15 12/10/20 documented as of this encounter
--- OUTSIDE RECORDS SUMMARY | 2024-09-21 04:19 | XMS_ITS | Encounter Summary ---
Author Organization [facility] Address [address] [place] [address] Phone Care Team Providers Care Social Work Supervisor Name Role Phone Cate Patel MD Primary Care Provider [phone] Encounter Details Date Type Department Care Team (Late st Contact Info) Description 02/14/2020 10:10 AM CDT Lab [facility] [facility] [address] [place] [id number] [facility]/Ancillary Prediabetes; Iron deficiency anemia, unspecified iron deficiency anemia type; Essential hypertension; Hyperlipidemia, unspecified hyperlipidemia type; Acquired hypothyroidism; Iron deficiency Discharge Disposition: Discharged to home or [...] as of this encounter Progress Notes * Anamaria Quintero RMA - 02/14/2020 10:10 AM CDT Silvia presents for lab draw per order of dr cate patel dated 02/14/20. Specimen collected from left antecubital without incident. sah documented in this encounter Plan of Treatment Not on file documented as of this encounter Procedures Procedure Name Priority Date/Time Associated Diagnosis Comments THYROID SCREEN WITH REFLEX Routine 02/14/2020 10:03 AM CDT Prediabetes Iron deficiency anemia, unspecified iron deficiency anemia type Essential hypertension Hyperlipidemia, unspecified hyperlipidemia type Acquired hypothyroidism Iron deficiency THYROID SCREEN WITH REFLEX Routine 02/14/2020 10:03 AM CDT Prediabetes Iron deficiency anemia, unspecified iron deficiency anemia type Essential hypertension Hyperlipidemia, unspecified hyperlipidemia type Acquired hypothyroidism Iron deficiency HEMOGLOBIN A1C W/ ESTIMATED GLUCOSE Routine 02/14/2020 10:03 AM CDT Prediabetes CBC WITH AUTO DIFFERENTIAL Routine 02/14/2020 10:03 AM CDT Prediabetes Iron deficiency anemia, unspecified iron deficiency anemia type Essential hypertension Hyperlipidemia, unspecified hyperlipidemia type Acquired hypothyroidism Iron deficiency THYROXINE (T4) FREE Routine 02/14/2020 1 0:03 AM CDT Prediabetes Iron deficiency anemia, unspecified iron deficiency anemia type Essential hypertension Hyperlipidemia, unspecified hyperlipidemia type Acquired hypothyroidism Iron deficiency LIPID PANEL Routine 02/14/2020 10:03 AM CDT Hyperlipidemia, unspecified hyperlipidemia type CMP (COMPREHENSIVE METABOLIC PANEL) Routine 02/14/2020 10:03 AM CDT Prediabetes Iron deficiency anemia, unspecified iron deficiency anemia type Essential hypertension Hyperlipidemia, unspecified hyperlipidemia type Acquired hypothyroidism Iron deficiency COMPLETE BLOOD COUNT (CBC) WITH DIFF Routine 02/14/2020 10:03 AM CDT Prediabetes Iron deficiency anemia, unspecified iron deficiency anemia type Essential hypertension Hyperlipidemia, unspecified hyperlipidemia type Acquired hypothyroidism Iron deficiency documented in this encounter Results * THYROID SCREEN WITH REFLEX (02/14/2020 10:03 AM CDT) TSH 2.550 0.270 - 4.200 mIU/L 02/14/2020 1:33 PM CDT [facility] Blood specimen (specimen) Venipuncture / Unknown 02/14/2020 10:03 AM CDT 02/14/2020 10:03 AM CDT us Cate Patel MD CHEMISTRY ORDERABLES Final R esult [facility] [place] [address] * (ABNORMAL) CBC WITH AUTO DIFFERENTIAL (02/14/2020 10:03 AM CDT) WBC 7.11 4.00 - 12.00 10(3)/mcL 02/14/2020 11:28 AM CDT [facility] RBC 3.57(L) 3.80 - 5.30 10(6)/mcL 02/14/2020 11:28 AM CDT [facility] HEMOGLOBIN (HGB) 11.2(L) 12.0 - 15.8 g/dL 02/14/2020 11:28 AM CDT [facility] HEMATOCRIT (HCT) 35.2(L) 36.0 - 47.0 % 02/14/2020 11:28 AM CDT [facility] MCV 98.6(H) 82.0 - 96.0 fL 02/14/2020 11:28 AM CDT [facility] MCH 31.4 26.0 - 34.0 pg 02/14/2020 11:28 AM CDT [facility] MCHC 31.8 31.0 - 36.0 g/dL 02/14/2020 11:28 AM CDT [facility] PLATELET COUNT 293 140 - 440 10(3)/[facility] 02/14/2020 11:28 AM CDT [facility] RDW 12.7 11.8 - 15.5 % 02/14/2020 11:28 AM CDT [facility] MPV 10.1 9.7 - 12.4 fL 02/14/2020 11:28 AM CDT [facility] NEUTROPHILS 75.8(H) 47.0 - 73.0 % 02/14/2020 11:28 AM CDT [facility] LYMPHOCYTES 12.1(L) 18.0 - 42.0 % 02/14/2020 11:28 AM [facility] MONOCYTES 8.3 4.0 - 12.0 % 02/14/2020 11:28 AM [facility] EOSINOPHILS 3.1 0.0 - 5.0 % 02/14/2020 11:28 AM [facility] BASOPHILS 0.7 0.0 - 1.0 % 02/14/2020 11:28 AM CDT [facility] ABSOLUTE NEUTROPHILS 5.39 1.60 - 7.70 10(3)/[facility] 02/14/2020 11:28 AM [facility] ABSOLUTE LYMPHOCYTES 0.86(L) 1.30 - 3.20 10(3)/[facility] 02/14/2020 11:28 AM [facility] ABSOLUTE MONOCYTES 0.59 0.20 - 1.00 10(3)/[facility] 02/14/2020 11:28 AM [facility] ABSOLUTE EOSINOPHIL 0.22 0.00 - 0.40 10(3)/[facility] 02/14/2020 11:28 AM [facility] ABSOLUTE BASOPHILS 0.05 0.00 - 0.10 10(3)/[facility] 02/14/2020 11:28 AM [facility] NRBC PER 100 WBC 0 02/14/20 20 11:28 AM [facility] Blood specimen (specimen) Venipuncture / Unknown 02/14/2020 10:03 AM CDT 02/14/2020 10:03 AM CDT us Cate Patel MD HEMATOLOGY ORDERABLES Final Result Performing Organization Address City/[facility]/ZIP Co de Phone Number [facility] [place] [address] * THYROXINE (T4) FREE (02/14/2020 10:03 AM CDT) T4 FREE 1.1 0.9 - 1.7 ng/dL 02/14/2020 1:33 PM CDT [facility] Blood specimen (specimen) Venipuncture / Unknown 02/14/2020 10:03 AM CDT 02/14/2020 10:03 AM CDT us Cate Patel MD CHEMISTRY ORDERABLES Final R esult Performing Organization Address [facility] de Phone Number [facility] [place] [address] * HEMOGLOBIN A1C W/ ESTIMATED GLUCOSE (02/14/2020 10:03 AM CDT) HGB-A1C 5.3 4.0 - 6.0 % 02/14/2020 11:50 AM CDT [facility] Est Average Glucose 105.4 mg/dL 02/14/2020 11:50 AM CDT [facility] Blood specimen (specimen) Venipuncture / Unknown 02/14/2020 10:03 AM CDT 02/14/2020 10:03 AM CDT Narrative [facility] - 02/14/2020 11:50 AM CDT HEMOGLOBIN A1C: DIABETIC PATIENTS: WELL-CONTROLLED: ?? 6.2 - 7.0 INTERMEDIATE WELL-CONTROLLED: ??7.0 - 9.0 POORLY-CONTROLLED: ??>9.0 Cate Patel MD CHEMISTRY ORDERABLES Final R esult Performing Organization Address City/[facility] Co de Phone Number [facility] [place] [address] * (ABNORMAL) LIPID PANEL (02/14/2020 10:03 AM CDT) Pathologist [facility] CHOLESTEROL 218(H) <=200 mg/dL 02/14/2020 1:33 PM CDT [facility] TRIGLYCERIDES 135 <150 mg/dL 02/14/2020 1:33 PM CDT [facility] HDL CHOLESTEROL 75.3 >40 mg/dL 0 1:33 PM CDT [facility] LDL 116 5 - 130 mg/dL 02/14/2020 1:33 PM CDT [facility] VLDL 27 5 - 55 mg/dL 02/14/2020 1:33 PM CDT [facility] CHOL/HDL RATIO 2.9 0.0 - 4.4 02/14/2020 1:33 PM CDT [facility] NON-HDL CHOLESTEROL 142.7(H) <130 mg/dL 02/14/2020 1:33 PM CDT [facility] LIPID FASTING 02/14/2020 1:33 PM CDT [facility] Blood specimen (specimen) Venipuncture / Unknown 02/14/2020 10:03 AM CDT 02/14/2020 10:03 AM CDT us Cate Patel MD CHEMISTRY ORDERABLES Final R esult [facility] [address] [place] [address] * (ABNORMAL) CMP (COMPREHENSIVE METABOLIC PANEL) (02/14/2020 10:03 AM CDT) [facility] SODIUM 138 136 - 144 mmol/L 02/14/2020 1:33 PM CDT [facility] POTASSIUM 4.5 3.5 - 5.1 mmol/L 02/14/2020 1:33 PM CDT [facility] CHLORIDE 99(L) 100 - 110 mmol/L 02/14/2020 1:33 PM CDT [facility] CO2, VENOUS 24 22 - 32 mmol/L 02/14/2020 1:33 PM T [facility] ANION GAP 19.5 8.0 - 20.0 mmol/L 02/14/2020 1:33 PM CDT [facility] GLUCOSE 96 70 - 99 mg/dL 02/14/2020 1:33 PM T [facility] BUN 30(H) 8 - 23 mg/dL 02/14/2020 1:33 PM CDT [facility] CREATININE, BLOOD 0.85 0.60 - 1.10 mg/dL 02/14/2020 1:33 PM T [facility] BUN/CREATININE RATIO 35(H) 12 - 20 ratio 02/14/2020 1:33 PM [facility] TOTAL PROTEIN 7.5 6.0 - 8.3 g/dL 02/14/2020 1:33 PM T [facility] ALBUMIN 4.3 3.5 - 5.2 g/dL 02/14/2020 1:33 PM [facility] Comment: The colormetric methods used for the determination of Albumin may lead to falsely elevated test results in patients suffering from renal failure or insufficiency due to interference with other proteins. A/G RATIO 1.3 1.0 - 2.0 02/14/2020 1:33 PM [facility] CALCIUM 9.7 8.9 - 10.3 mg/dL 02/14/2020 1:33 PM CDT [facility] T BILI 0.3 <=1.2 mg/dL 02/14/2020 1:33 PM CDT [facility] SGOT (AST) 23 <=32 U/L 02/14/2020 1:33 PM T [facility] SGPT (ALT) 31 <=33 U/L 02/14/2020 1:33 PM T [facility] ALKALINE PHOSPHATASE 71 35 - 105 U/L 02/14/2020 1:33 PM CDT [facility] GFR, EST. NONAFRICAN >60 >=60 02/14/2020 1:33 PM CDT [facility] GFR, EST. >60 >=60 020 1:33 PM CDT [facility] Comment: Creatinine Clearance is the preferred criteria for selecting drug dose adjustments in renally impaired patients. ??The GFR is provided as additional pertinent clinical information. GFR is reported in mL/min/1.73 sq m. Blood specimen (specimen) Venipuncture / Unknown 02/14/2020 10:03 AM CDT 02/14/2020 10:03 AM CDT us Cate Patel MD CHEMISTRY ORDERABLES Final R esult [facility] [address] [place] [address] documented in this encounter Visit Diagnoses Diagnosis Prediabetes Other abnormal glucose Iron deficiency anemia, unspecified iron deficiency anemia type Essential hypertension Unspecified essential hypertension Hyperlipidemia, unspecified hyperlipidemia type Acquired hypothyroidism Unspecified hypothyroidism Iron deficiency Other disorders of iron metabolism documented in this encounter Additional Health Concerns Assessment Noted Time PHQ-9 Depression Total Score: 0 08/30/20 19 3:00 PM [employer] documented as of this encounter Care Teams Social Work Supervisor Relationship Specialty Start Date End Date Cate Patel MD PCP - General Family Medicine 07/25/15 12/10/20 documented as of this encounter
--- OUTSIDE RECORDS SUMMARY | 2024-09-21 04:19 | XMS_ITS | Encounter Summary ---
Author Organization [facility] Address [address] [place] [address] Phone Care Team Providers Care Button Machine Operator Name Role Phone Cate Patel MD Primary Care Provider + [phone] Reason for Visit * Reason Comments Hypertension f/u Medication Management needs meds sent to [facility] in [place] Fatigue states she is suffer ing from severe fatigue; states she used to be so energetic but not she can't hardly move at all Encounter Details Date Type Department Care Team (Late st Contact Info) Description 07/20/2020 9:45 AM CDT Office Visit [facility] - Primary Care - [facility] [address] [place] [address] Cate Patel MD [address] [place], [place] [id number] Essential hypertension (Primary Dx); Acquired hypothyroidism; Gastroesophageal reflux disease without esophagitis; Encounter for immunization; Chronic left-sided headaches; Obesity, Class III, BMI 40-49.9 (morbid obesity) ([facility]) Discharge Disposition: Discharged to home or Selfcare [...] have Coronavirus / COVID-19? No / Unsure 07/20/2020 9:38 AM CDT documented as of this encounter Last Filed Vital Signs Vital Sign Reading Time Taken Comments Blood Pressure 128/74 07/20/2020 9:43 AM CDT Pulse 78 07/20/2020 9:43 AM CDT Temperature 36.7 ??C (98 ??F) 07/20/2020 9:43 AM CDT Respiratory Rate 16 07/20/2020 9:43 AM CDT Oxygen Saturation 98% 07/20/2020 9:43 AM CDT Inhaled Oxygen Concentration - - Weight 113.6 kg (250 lb 6.4 oz) 07/20/2020 9:43 AM CDT Height 157.5 cm (5' 2 ) 07/20/2020 9:43 AM CDT Body Mass Index 45.8 07/20/2020 9:43 AM CDT documented in this encounter Progress Notes * Cecy Salgado, CENTRAL PROCESSING TECH - 07/20/2020 9:45 AM CDT Silvia Boss is a 75 y.o. female with current BMI: Body mass index is 45.8 kg/m??. Interventions discussed including: encourage daily physical activity and well- balanced diet. Silvia Boss, 75 y.o., female is here for Hypertension (f/u), Medication Management (needs meds sent to [facility] in [place]), and Fatigue (states she is suffering from severe fatigue; states she used to be so energetic but not she can't hardly move at all) Medication Refills: Patient reports/denies need for medication refills. Orders Pended: yes Requested Prescriptions Pending Prescriptions Disp Refills ??? dilTIAZem (Cartia XT) 240 MG CAPSULE SR 24 HR 90 Cap 1 ??? levothyroxine (SYNTHROID) 75 MCG Tablet 90 Tab 3 ??? lisinopril-hydroCHLOROthiazide (PRINZIDE, ZESTORETIC) 20-25 MG Tablet 90 Tab 3 ??? omeprazole (PriLOSEC) 40 MG CAPSULE DELAYED RELEASE 90 Cap 2 Home Medications Medication Sig Start Date End Date Taking? Authorizing Provider Aspirin 81 MG Tablet Take 81 mg by mouth daily. Yes Devin Singh MD Calcium Carbonate-Vitamin D (CALCIUM 500 + D PO) Take 1 Tab by mouth daily. Yes Devin Singh MD CARTIA XT 240 MG CAPSULE SR 24 HR Take 1 capsule by mouth once daily 05/01/20 Yes Cate Patel MD Cholecalciferol (VITAMIN D3) 1000 UNIT Tablet Take 1,000 Units by mouth daily. Yes Devin Singh MD levothyroxine (SYNTHROID) 75 MCG Tablet TAKE 1 TABLET BY MOUTH ONCE DAILY 10/08/19 Yes Cate Patel MD lisinopril-hydroCHLOROthiazide (PRINZIDE, ZESTORETIC) 20-25 MG Tablet TAKE 1 TABLET BY MOUTH ONCE DAILY 10/08/19 Yes Cate Patel MD Loperamide HCl (IMODIUM A-D) 2 MG Tablet Take 1 Tab by mouth daily as needed. Yes Devin Singh MD Melatonin 5 MG Capsule Take 5 mg by mouth nightly. Yes Devin Singh MD omeprazole (PRILOSEC) 40 MG CAPSULE DELAYED RELEASE Take 1 capsule by mouth once daily 12/23/19 Yes Cate Patel MD venlafaxine (EFFEXOR-XR) 37.5 MG CAPSULE SR 24 HR Take 1 Cap by mouth daily. Patient not taking: Reported on 07/20/2020 10/20/19 Mary Hyman APN, EXPERIMENTAL DISPLAY BUILDER Zinc Sulfate (ZINCATE PO) Take 1 Tab by mouth daily. Yes Devin Singh MD Medications Discontinued During This Encounter Medication Reason ??? predniSONE (DELTASONE) 10 MG Tablet Therapy completed I have reviewed the home medication list [...] Zoster Immunization (2 of 3) 01/29/2013 ??? Influenza Immunization (1) 06/06/2020 Orders Pended: yes The following BPA's have been addressed with the patient today: BMI and Flu * Cecy Salgado CMA - 07/20/2020 9:45 AM CDT Silvia is here for Flu immunizations per order of Dr. Esposito dated 07/20/20. Administered in left deltoid . Vaccine Information Sheet(s) were given on 07/20/20. Verbal consent was obtained. Silvia tolerated the immunization well without incident. See Immunization activity for details. * Cate Patel MD - 07/20/2020 9:45 AM CDT Subjective Chief Complaint Patient presents with ??? Hypertension f/u ??? Medication Management needs meds sent to [facility] in [place] ??? Fatigue states she is suffering from severe fatigue; states she used to be so energetic but not she can't hardly move at all History of Present Illness Silvia presents here for a 3-month followup visit. Her blood pressure is well controlled today at 128/74 mmHg. She has been taking her lisinopril/HCTZ 20/25 mg daily and diltiazem XT 240 mg daily. I will continue the same. They have been refilled. Prescriptions sent to Pharmacy. She complains of having chronic fatigue, and she is known to have iron deficiency anemia for which she is getting iron infusions from Dr. Anthony. She is also known to have pituitary microadenoma. Shetakes levothyroxine for her hypothyroidism, has thyroid nodules, and is getting evaluated by Dr. Rai, anesthesiologist assistant certified. For her pituitary microadenoma, she is seeing Dr. Borges in [place]. She also complains of having left-sided headaches. For her obesity, she was taking Contrave for weight loss, but she stopped on her own. Today, she weighs 250 pounds. She wants something for weight loss. Also, because she has headaches, I will start her on topiramate 25 mg b.i.d. for 1 week and then increase to topiramate 50 mg b.i.d. IJN: [id number] ROS: RESPIRATORY: Patient denies shortness of breath, chronic cough or other respiratory problems. CARDIAC: Patient denies chest pain, chest pressure, palpitations, diaphoresis, chest pain radiating into arms or neck. PMH/PSH/FH/SH/medications/allergies/health maintenance entries were reviewed with patient and updated. Objective: Physical Exam Vitals: 07/20/20 0943 BP: 128/74 Pulse: 78 Resp: 16 Temp: 98 ??F (36.7 ??C) TempSrc: Temporal SpO2: 98% Weight: 250 lb 6.4 oz (113.6 kg) Height: 5' 2 (1.575 m) Body mass index is 45.8 kg/m??. Constitutional: She appears well-developed and well-nourished. No distress. HENT: Head: Atraumatic, normocephalic. Cardiovascular: Normal rate, regular rhythm, normal heart sounds and intact distal pulses. No murmur/rubs/gallops heard. Pulmonary/Chest: clear to auscultation bilaterally, no crepts or wheezes. Musculoskeletal/extremities: no pedal edema, no calf tenderness. Skin: Skin is warm and dry. Assessment and Plan Silvia Boss presents here for Hypertension (f/u), Medication Management (needs meds sent to [facility] in [place]), and Fatigue (states she is suffering from severe fatigue; states she used to be so energetic but not she can't hardly move at all) 1. Essential hypertension - continue/refilled dilTIAZem (Cartia XT) 240 MG q.d. - continue/refilled lisinopril-hydroCHLOROthiazide 20-25 MG q.d. 2. Acquired hypothyroidism - continue/refilled levothyroxine (SYNTHROID) 75 MCG q.d. 3. Gastroesophageal reflux disease without esophagitis - continue/refilled omeprazole (PriLOSEC) 40 MG q.d. 4. Encounter for immunization - INFLUENZA VACCINE QUAD IM - INFLUENZA (>3) IMMUNIZATION QUESTIONS 5. Chronic left-sided headaches - start topiramate 50 mg b.i.d.. - ?Secondary to pituitary microadenoma. Sees Dr. Borges anesthesiologist assistant certified. 6. Obesity, Class III, BMI 40-49.9 (morbid obesity) (HCC) - discontinued Contrave on her own. - start Topiramate 50 MG b.i.d. Followup: Return in about 3 months (around 10/20/2020).with labs done 1 week prior to next appointment. The patient understood the plan, questions were answered and AVS including the updated medication list was provided to the patient. Documentation for this visit on 07/20/20 was completed using a template. I have seen and examined the patient. Everything documented was personally performed at this visit with the necessary additions, deletions and changes made as appropriate. Cate Patel MD documented in this encounter Plan of Treatment Not on file documented as of this encounter Results * THYROXINE (T4) FREE (10/23/2020 10:10 AM RELIEF MAP MODELER) T4 FREE 1.5 0.9 - 1.7 ng/dL 10/23/2020 1:30 PM RELIEF MAP MODELER [facility] Blood Venipuncture / Unknown 10/23/2020 10:10 AM RELIEF MAP MODELER 10/23/2020 10:10 AM RELIEF MAP MODELER us Cate Patel MD CHEMISTRY ORDERABLES Final R esult [facility] [place] [address] * THYROID STIMULATING HORMONE (TSH) (10/23/2020 10:10 AM RELIEF MAP MODELER) TSH 1.480 0.270 - 4.200 mIU/L 10/23/2020 1:30 PM RELIEF MAP MODELER [facility] Blood Venipuncture / Unknown 10/23/2020 10:10 AM RELIEF MAP MODELER 10/23/2020 10:10 AM RELIEF MAP MODELER us Cate Patel MD CHEMISTRY ORDERABLES Final R esult Performing Organization Address City/[facility] Co de Phone Number [facility] [place] [address] * (ABNORMAL) LIPID PANEL (10/23/2020 10:10 AM RELIEF MAP MODELER) CHOLESTEROL 210(H) <=200 mg/dL 10/23/2020 1:30 PM RELIEF MAP MODELER [facility] TRIGLYCERIDES 113 <150 mg/dL 10/23/2020 1:30 PM RELIEF MAP MODELER [facility] HDL CHOLESTEROL 79.9 >40 mg/dL 1:30 PM RELIEF MAP MODELER [facility] LDL 108 5 - 130 mg/dL 10/23/2020 1:30 PM RELIEF MAP MODELER [facility] VLDL 23 5 - 55 mg/dL 10/23/2020 1:30 PM RELIEF MAP MODELER [facility] CHOL/HDL RATIO 2.6 0.0 - 4.4 10/23/2020 1:30 PM RELIEF MAP MODELER [facility] NON-HDL CHOLESTEROL 130.1(H) <130 mg/dL 10/23/2020 1:30 PM RELIEF MAP MODELER [facility] IS THE PATIENT REQUIRED TO BE FASTING? Yes 10/23/2020 1:30 PM RELIEF MAP MODELER [facility] Blood Venipuncture / Unknown 10/23/2020 10:10 AM RELIEF MAP MODELER 10/23/2020 10:10 AM RELIEF MAP MODELER us Cate Patel MD CHEMISTRY ORDERABLES Final R esult [facility] [address] [place] [address] * (ABNORMAL) CMP (COMPREHENSIVE METABOLIC PANEL) (10/23/2020 10:10 AM RELIEF MAP MODELER) SODIUM 136 136 - 144 mmol/L 10/23/2020 1:30 PM [facility] POTASSIUM 4.3 3.5 - 5.1 mmol/L 10/23/2020 1:30 PM [facility] CHLORIDE 101 100 - 110 mmol/L 10/23/2020 1:30 PM [facility] CO2, VENOUS 22 22 - 32 mmol/L 10/23/2020 1:30 PM [facility] ANION GAP 17.3 8.0 - 20.0 mmol/L 10/23/2020 1:30 PM [facility] GLUCOSE 124(H) 70 - 99 mg/dL 10/23/2020 1:30 PM [facility] BUN 30(H) 8 - 23 mg/dL 10/23/2020 1:30 PM [facility] CREATININE, BLOOD 1.31(H) 0.60 - 1.10 mg/dL 10/23/2020 1:30 PM [facility] BUN/CREATININE RATIO 23(H) 12 - 20 ratio 10/23/2020 1:30 PM [facility] TOTAL PROTEIN 7.1 6.0 - 8.3 g/dL 10/23/2020 1:30 PM [facility] ALBUMIN 4.5 3.5 - 5.2 g/dL 10/23/2020 1:30 PM [facility] Comment: The colormetric methods used for the determination of Albumin may lead to falsely elevated test results in patients suffering from renal failure or insufficiency due to interference with other proteins. A/G RATIO 1.7 1.0 - 2.0 10/23/2020 1:30 PM [facility] CALCIUM 9.3 8.9 - 10.3 mg/dL 10/23/2020 1:30 PM [facility] T BILI 0.3 <=1.2 mg/dL 10/23/2020 1:30 PM [facility] SGOT (AST) 14 <=32 U/L 10/23/2020 1:30 PM RELIEF MAP MODELER [facility] SGPT (ALT) 22 <=41 U/L 10/23/2020 1:30 PM RELIEF MAP MODELER [facility] ALKALINE PHOSPHATASE 68 35 - 105 U/L 10/23/2020 1:30 PM RELIEF MAP MODELER [facility] GFR, EST. NONAFRICAN 40(L) >=60 10/23/2020 1:30 PM RELIEF MAP MODELER [facility] GFR, EST. 48(L) >=60 021 1:30 PM RELIEF MAP MODELER [facility] Comment: Creatinine Clearance is the preferred criteria for selecting drug dose adjustments in renally impaired patients. ??The GFR is provided as additional pertinent clinical information. GFR is reported in mL/min/1.73 sq m. IS THE PATIENT REQUIRED TO BE FASTING? Yes 10/23/2020 1:30 PM RELIEF MAP MODELER [facility] Blood Venipuncture / Unknown 10/23/2020 10:10 AM RELIEF MAP MODELER 10/23/2020 10:10 AM RELIEF MAP MODELER us Cate Patel MD CHEMISTRY ORDERABLES Final R esult [facility] [place] [address] documented in this encounter Visit Diagnoses Diagnosis Essential hypertension- Primary Unspecified essential hypertension Acquired hypothyroidism Unspecified hypothyroidism Gastroesophageal reflux disease without esophagitis Esophageal reflux Encounter for immunization Need for other specified prophylactic vaccination against single bacterial disease Chronic left-sided headaches Headache Obesity, Class III, BMI 40-49.9 (morbid obesity) (HCC) Morbid obesity documented in this encounter Additional Health Concerns Assessment Noted Time PHQ-9 Depression Total Score: 0 08/30/20 19 3:00 PM RELIEF MAP MODELER documented as of this encounter Care Teams Button Machine Operator Relationship Specialty Start Date End Date Cate Patel MD PCP - General Family Medicine 07/25/15 12/10/20 documented as of this encounter
--- OUTSIDE RECORDS SUMMARY | 2024-09-21 04:19 | XMS_ITS | Encounter Summary ---
Author Organization [facility] Address [address] [place] [address] Phone Care Team Providers Care Ostrich Farmer Name Role Phone Cate Patel MD Primary Care Provider [phone] Reason for Referral * Radiology Services (Routine) - Closed Specialty Diagnoses / Procedures Referred By Contac t Referred To Contact Radiology Diagnoses Breast cancer screening by mammogram Procedures POLI SCREENING BILATERAL DIGITAL W CAD W Cate Stovall MD Phone: tel: fax: Referral ID Status Reason Start Date Expiration Date Visits Re quested Visits Authorized [id number] Closed 02/17/2020 1 1 Reason for Visit * Reason Comments Hypertension 6 mo f/u Weight Check Encounter Details Date Type Department Care Team (Latest Contact Info) Description 02/17/2020 10:30 AM CDT Office Visit [facility] [address] [place] [address] Cate Patel MD [address] [place] [address] Essential hypertension (Primary Dx); Hyperlipidemia, unspecified hyperlipidemia type; Breast cancer screening by mammogram; Obesity, Class III, BMI 40-49.9 (morbid obesity) (HCC); Acquired hypothyroidism Discharge Disposition: Discharged to home or Selfcare [...] Sign Reading Time Taken Comments Blood Pressure 136/72 02/17/2020 11:02 AM CDT Pulse 86 02/17/2020 10:07 AM CDT Temperature 37.2 ??C (98.9 ??F) 02/17/2020 10:07 AM C DT Respiratory Rate 18 02/17/2020 10:07 AM CDT Oxygen Saturation 98% 02/17/2020 10:07 AM CDT Inhaled Oxygen Concentration - - Weight 113 kg (249 lb 3.2 oz) 02/17/2020 10:07 A M CDT Height 157.5 cm (5' 2 ) 02/17/2020 10:07 AM CDT Body Mass Index 45.58 02/17/2020 10:07 AM CDT documented in this encounter Progress Notes * Cecy Salgado, SOIL SORT WORKER - 02/17/2020 10:30 AM CDT Silvia Aditi Boss, 74 y.o., female is here for Hypertension (6 mo f/u) and Weight Check Medication Refills: Patient reports/denies need for medication refills. Orders Pended: no Requested Prescriptions No prescriptions requested or ordered in this encounter Home Medications Medication Sig Start Date End Date Taking? Authorizing Provider Aspirin 81 MG Tablet Take 81 mg by mouth daily. Yes Provider, MD Devin Calcium Carbonate-Vitamin D (CALCIUM 500 + D PO) Take 1 Tab by mouth daily. Yes Devin Singh MD [id number] PO Take by mouth. Devin Singh MD CARTIA XT 240 MG CAPSULE SR 24 HR TAKE 1 CAPSULE BY MOUTH ONCE DAILY 04/09/19 Yes Cate Patel MD Cholecalciferol (VITAMIN D3) 1000 UNIT Tablet Take 1,000 Units by mouth daily. Yes Devin Singh MD CONTRAVE 8-90 MG TABLET SR 12 HR Take 2 tablets by mouth twice daily 01/17/20 Yes Cate Patel MD levothyroxine (SYNTHROID) 75 MCG Tablet TAKE [...] HR Take 1 Cap by mouth daily. 10/20/19 Yes Mary Hyamn, DOORKEEPER, SMOKE TESTER Zinc Sulfate (ZINCATE PO) Take 1 Tab by mouth daily. Yes Devin Singh MD Medications Discontinued During This Encounter Medication Reason ??? Cholecalciferol (VITAMIN D3 PO) Duplicate Order I have reviewed the home medication list [...] Zoster Immunization (2 of 3) 01/29/2013 ??? Mammogram 04/18/2020 Orders Pended: yes The following BPA's have been addressed with the patient today: Mammogram * Cate Patel MD - 02/17/2020 10:30 AM CDT Subjective Chief Complaint Patient presents with ??? Hypertension 6 mo f/u ??? Weight Check History of Present Illness Silvia presents here for a 6-month followup visit. Her blood pressure is well controlled with Cartia XT and lisinopril/HCTZ. She says that she is not following a strict diet regimen and so she has been gaining weight and then lost some. She continues to take her Contrave. She says that she is not exercising as much. She was even thinking of stopping the Contrave for a while, but for now she wantsto take it. I will continue her Contrave for now. She has lost a total of 12 pounds since February 2019 when it was started. She has had her labs done on 02/14/2020. We reviewed them. Her hemoglobin was 11.2. She was gettingiron infusions from Dr. Forte. Her CMP looks good. BUN/creatinine ratio is elevated. Encouraged to keep up hydration. Lipid panel shows a slightly elevated total cholesterol of 218. She is not on a statin at this time. Low-fat diet and exercise recommended. HbA1c is normal. TSH and T4 levels are normal. IJN: [id number] ROS: RESPIRATORY: Patient denies shortness of breath, chronic cough or other respiratory problems. CARDIAC: Patient denies chest pain, chest pressure, palpitations, diaphoresis, chest pain radiating into arms or neck. PMH/PSH/FH/SH/medications/allergies/health maintenance entries were reviewed with patient and updated. Objective: Physical Exam Vitals: 02/17/20 1007 02/17/20 1102 BP: 152/76 136/72 Pulse: 86 Resp: 18 Temp: 98.9 ??F (37.2 ??C) TempSrc: Temporal SpO2: 98% Weight: 249 lb 3.2 oz (113 kg) Height: 5' 2 (1.575 m) Body mass index is 45.58 kg/m??. Constitutional: She appears well-developed and well-nourished. No distress. HENT: Head: Atraumatic, normocephalic. Cardiovascular: Normal rate, regular rhythm, normal heart sounds and intact distal pulses. No murmur/rubs/gallops heard. Pulmonary/Chest: clear to auscultation bilaterally, no crepts or wheezes. Musculoskeletal/extremities: no pedal edema, no calf tenderness. Skin: Skin is warm and dry. Assessment and Plan Silvia Boss presents here for Hypertension (6 mo f/u) and Weight Check 1. Essential hypertension - BP well controlled with Cartia XT 240 mg q.d. and lisinopril/HCTZ 20/25 mg Q 2. Hyperlipidemia, unspecified hyperlipidemia type - not on a statin. Low-fat diet and exercise recommended. 3. Breast cancer screening by mammogram - POLI SCREENING BILATERAL DIGITAL W CAD W YAYA; Future 4. Obesity, Class III, BMI 40-49.9 (morbid obesity) (HCC) - currently on Contrave. Has lost total of 12 lb since February 2019 when she weighed 261 lb. - encouraged to be more compliant with diet and exercise. 5. Acquired hypothyroidism - continue levothyroxine 75 mcg q.d. Followup: Return in about 3 months (around 05/19/2020) for recheck weight.with labs done 1 week prior to next appointment. The patient understood the plan, questions were answered and AVS including the updated medication list was provided to the patient. Documentation for this visit on 02/17/20 was completed using a template. I have seen and examined the patient. Everything documented was personally performed at this visit with the necessary additions, deletions and changes made as appropriate. CATE PATEL MD documented in this encounter Plan of Treatment Not on file documented as of this encounter Results * POLI SCREENING BILATERAL [...] exams dated: ??04/18/2018, 07/22/2016, and 01/02/2015 [facility]. ?? BREAST TISSUE:There are scattered fibroglandular [...] Electronically signed by: Mele Macedo M.D. ? candy/giovanny:04/23/2020 15:55:32 ?? Soap Slabber: Fernanda SYED(Rosetta)(Abad), [facility] [place] letter sent: Normal Exam ?? Reading location: [facility] BI-RADS: 2 Benign Procedure Note Mele Macedo [...] exam. Electronically signed by: Mele gupta/giovanny:04/23/2020 15:55:32 Soap Slabber: Fernanda SYED(Rosetta)(M), [facility] letter sent: Normal Exam Reading location: [facility] BI-RADS: 2 Benign us Cate Patel MD IMG MAMMO ORDERABLES Final R esult documented in this encounter Visit Diagnoses Diagnosis Essential hypertension- Primary Unspecified essential hypertension Hyperlipidemia, unspecified hyperlipidemia type Breast cancer screening by mammogram Obesity, Class III, BMI 40-49.9 (morbid obesity) (HCC) Morbid obesity Acquired hypothyroidism Unspecified hypothyroidism Breast cancer screening by mammogram documented in this encounter Additional Health Concerns Assessment Noted Time PHQ-9 Depression Total Score: 0 08/30/20 19 3:00 PM SPECIAL LIBRARY LIBRARIAN documented as of this encounter Care Teams Ostrich Farmer Relationship Specialty Start Date End Date Cate Patel MD PCP - General Family Medicine 07/25/15 12/10/20 documented as of this encounter
--- OUTSIDE RECORDS SUMMARY | 2024-09-21 04:19 | XMS_ITS | Encounter Summary ---
Author Organization [employer] Care Team Providers Care Ceramics Teacher Name Role Phone Cate Patel MD Primary Care Provider [phone] Encounter Details Date Type Department Care Team (Latest Contact Info) Description 04/20/2020 Travel Social History Tobacco Use Types Packs/Day [...] Total Score: 0 08/30/20 19 3:00 PM ROOFER VINYL COATING documented as of this encounter Care Teams Ceramics Teacher Relationship Specialty Start Date End Date Cate Patel MD PCP - General Family Medicine 07/25/15 12/10/20 documented as of this encounter
--- OUTSIDE RECORDS SUMMARY | 2024-09-21 04:19 | XMS_ITS | Encounter Summary ---
Author Organization [facility] Address [address] [place] [address] Phone Care Team Providers Care Engine House Helper Name Role Phone Cate Patel MD Primary Care Provider + [phone] Liliya Rai MD Unavailable Cate Patel MD Primary Care Provider + [phone] Vadim Browning MD Unavailable Unavailable Sarah Borges MD Unavailable +- [phone] Guerrero Nicholson MD Primary Care Provider Reason for Visit * Reason Comments Medication Refill Encounter Details Date Type Department Care Team (Late st Contact Info) Description 04/27/2020 Refill [facility] - Primary Care - [address] [place] [address] Cate Patel MD [address] [place] [address] Medication Refill Social History Tobacco [...] encounter Miscellaneous Notes * Telephone Encounter - Macarena Miller RN - 05/01/2020 1:56 PM CDT Medication failed the protocol, provider to review and approve the medication order. Requested Prescriptions Pending Prescriptions Disp Refills CARTIA XT 240 MG CAPSULE SR 24 HR [Pharmacy Med Name: Cartia XT 240 MG Oral Capsule Extended Release 24 Hour] 90 Cap 3 Sig: Take 1 capsule by mouth once daily There is no refill protocol information for this order 1 year ago (04/09/2019) CARTIA XT 240 MG CAPSULE SR 24 HR TAKE 1 CAPSULE BY MOUTH ONCE DAILY Dispense: 90 Cap? Refills: 3? Start: 04/09/2019? documented in this encounter Plan of Treatment Not on file documented as of this encounter Visit Diagnoses Not on filedocumented in this encounter Additional Health Concerns Assessment Noted Time PHQ-9 Depression Total Score: 0 08/30/20 19 3:00 PM MANAGER CARDIOLOGY documented as of this encounter Care Teams Engine House Helper Relationship Specialty Start Date End Date Cate Patel MD PCP - General Family Medicine 07/25/15 12/10/20 Cate Patel MD [address] [place] [address] PCP - General Family Medicine 12/11/20 03/05/23 Guerrero Nicholson MD [address] [place] [address] PCP - General Neurology 07/30/23 Liliya Rai MD [address] [facility] [address] [place] [address] Consulting Physician Endocrinology 10/24/20 Vadim Browning MD [address] [place] [address] Consulting Physician General Surgery 03/22/21 Sarah Borges MD [address] [place] [address] Consulting Physician Endocrinology 03/22/21 documented as of this encounter
--- OUTSIDE RECORDS SUMMARY | 2024-09-21 04:19 | XMS_ITS | Encounter Summary ---
Author Organization [facility] Address [address] [place] [address] Phone Care Team Providers Care Fish Warden Name Role Phone Cate Patel MD Primary Care Provider + [phone] Liliya Rai MD Unavailable Cate Patel MD Primary Care Provider + [phone] Vadim Browning MD Unavailable Unavailable Sarah Borges MD Unavailable +- [phone] Guerrero Nicholson MD Primary Care Provider Reason for Visit * Reason Comments Medication Refill Encounter Details Date Type Department Care Team (Late st Contact Info) Description 01/17/2020 Refill [facility] - [address] [place] [address] Cate Patel MD [address] [place] [address] Medication Refill Social History Tobacco [...] encounter Miscellaneous Notes * Telephone Encounter - Eunice Srinivasan RN - 01/17/2020 11:58 AM CDT Requested Prescriptions Pending Prescriptions Disp Refills CONTRAVE 8-90 MG TABLET SR 12 HR [Pharmacy Med Name: Contrave 8-90 MG Oral Tablet Extended Release 12 Hour] 120 Tab 0 Sig: Take 2 tablets by mouth twice daily Off-Protocol Failed - 01/17/2020 11:58 AM Failed - Medication not assigned to a protocol, review manually. Passed - Valid encounter within last 12 months Past Office Visits Recent Outpatient Visits 4 months ago Obesity, Class III, BMI 40-49.9 (morbid obesity) (HCC) [facility] - Cate Reyes MD 7 months ago Essential hypertension [facility] - Cate Reyes MD 10 months ago Left hip pain [facility] - Eunice Grace, SUPPOSITORY MOLDING MACHINE OPERATOR, PASSENGER BOOKING CLERK 11 months ago Essential hypertension [facility] - Cate Reyes MD 1 year ago Abscess [facility] - Eunice Grace, SUPPOSITORY MOLDING MACHINE OPERATOR, PASSENGER BOOKING CLERK Upcoming Appointments Future Appointments In 4 weeks Cate Patel MD [facility] - [address] In 1 month Liliya Rai MD [facility] END[facility], [facility] In 2 months Vinay Forte MD [facility] Oncology Services, [facility] [employer] - 01/17/2020 11:58 AM Information pending documented in this encounter Plan of Treatment Not on file documented as of this encounter Visit Diagnoses Diagnosis Obesity, Class III, BMI 40-49.9 (morbid obesity) (HCC) Morbid obesity documented in this encounter Additional Health Concerns Assessment Noted Time PHQ-9 Depression Total Score: 0 08/30/20 19 3:00 PM BULLET SWAGING MACHINE OPERATOR documented as of this encounter Care Teams Fish Warden Relationship Specialty Start Date End Date Cate Patel MD PCP - General Family Medicine 07/25/15 12/10/20 Cate Patel MD [address] [place] [address] PCP - General Family Medicine 12/11/20 03/05/23 Guerrero Nicholson MD [address] [facility] [address] [place] [address] PCP - General Neurology 07/30/23 Liliya Rai MD [address] [address] Consulting Physician Endocrinology 10/24/20 Vadim Browning MD [address] [place] [address] Consulting Physician General Surgery 03/22/21 Sarah Borges MD [address] [place] [address] Consulting Physician Endocrinology 03/22/21 documented as of this encounter
--- OUTSIDE RECORDS SUMMARY | 2024-09-21 04:19 | XMS_ITS | Encounter Summary ---
Author Organization [facility] Address [address] [place] [address] Phone Care Team Providers Care Scallop Dredger Name Role Phone Cate Patel MD Primary Care Provider [phone] Reason for Visit * Auth/Cert Specialty Diagnoses / Procedures Referred By Contac t Referred To Contact Referral ID Status Reason Start Date Expiration Date Visits Re quested Visits Authorized [id number] 1 1 Encounter Details Date Type Department Care Team (Late st Contact Info) Description 08/10/2020 1:00 PM HYDRAULIC GOVERNOR ASSEMBLER Clinical Support [facility] Oncology Services [address] [place] [phone] Pepe Anthony MD [address] [place] [address] Hiatal hernia (Primary Dx); Iron deficiency anemia [...] COVID-19? No / Unsure 08/10/2020 1:02 PM HYDRAULIC GOVERNOR ASSEMBLER documented as of this encounter Miscellaneous Notes * Interdisciplinary - Thania Keller, RN - 08/10/2020 1:00 PM CST VS obtained. IV started to LAC x1 attempt. Medication given per order and pt tolerated well. IV DC and pt left tx area in stable condition. AULIC GOVERNOR ASSEMBLER documented in this encounter Plan of Treatment [...] mg, Intravenous, ONCE, 1 dose, On Carolyn 08/10/20 at 1330, Administer over 30 MinutesIndications:Hiatal hernia,Iron deficiency anemia due to chronic blood loss Given 08/10/2020 1:28 PM HYDRAULIC GOVERNOR ASSEMBLER 750 mg sodium chloride 0.9 % 50 mL IV bolus Intravenous, ONCE, 1 dose, On Carolyn 08/10/20 at 1330, Use as flush before and after chemotherapy administration.Indications:Hiatal hernia,Iron deficiency anemia due to chronic blood loss New Bag 08/10/2020 1:58 PM HYDRAULIC GOVERNOR ASSEMBLER documented in this encounter Additional Health Concerns Assessment Noted Time PHQ-9 Depression Total Score: 0 08/30/20 19 3:00 PM HYDRAULIC GOVERNOR ASSEMBLER documented as of this encounter Care Teams Scallop Dredger Relationship Specialty Start Date End Date Cate Patel MD PCP - General Family Medicine 07/25/15 12/10/20 documented as of this encounter
--- OUTSIDE RECORDS SUMMARY | 2024-09-21 04:19 | XMS_ITS | Encounter Summary ---
Author Organization [employer] Care Team Providers Care Tick Inspector Name Role Phone Cate Patel MD Primary Care Provider Encounter Details Date Type Department Care Team (Latest Contact Info) Description 07/27/2020 Travel Social History Tobacco Use Types Packs/Day [...] Total Score: 0 08/30/20 19 3:00 PM DIE CASTER documented as of this encounter Care Teams Tick Inspector Relationship Specialty Start Date End Date Cate Patel MD PCP - General Family Medicine 07/25/15 12/10/20 documented as of this encounter
--- OUTSIDE RECORDS SUMMARY | 2024-09-21 04:19 | XMS_ITS | Encounter Summary ---
Author Organization [facility] Address [address] [place] [address] Phone Care Team Providers Care Certified Composites Technician Name Role Phone Suri Patel MD Primary Care Provider Reason for Visit * Reason Onset Date Comments Need Order 11/23/2019 Encounter Details Date Type Department Care Team (Late st Contact Info) Description 11/23/2019 Telephone [facility] [address] [place] [address] Suri Patel MD [address] [place] [address] Need Order Social History Tobacco Use Types Packs/Day Years [...] as of this encounter Miscellaneous Notes * Addendum Note - Suri Patel MD - 11/23/2019 8:37 PM CSTAddended by: SURI PATEL on: 11/23/2019 08:37 PM Modules accepted: Orders T CUTTER * Telephone Encounter - Suri Patel MD - 11/23/2019 8:37 PM CST Ordered. Thanks for pending. T CUTTER * Addendum Note - Bety uBrns RN - 11/23/2019 4:29 PM CSTAddended by: BETY BURNS on: 11/23/2019 04:29 PM Modules accepted: Orders T CUTTER * Telephone Encounter - Bety Burns RN - 11/23/2019 4:27 PM CST Labs pended T CUTTER * Telephone Encounter - Suri Patel MD - 11/23/2019 4:11 PM CST Get CBC, CMP, FLP, HBA1C, TSH, free T4 Please pend orders T CUTTER * Telephone Encounter - Vira Jimenez RN - 11/23/2019 10:18 AM SHEET CUTTER Called patient to verify message below. Please see message below. Patient appt is on 02/15/2020. Please advise. T CUTTER * Telephone Encounter - Vira Jimenez RN - 11/23/2019 10:17 AM SHEET CUTTER Call History Type Contact Phone User 11/22/2019 10:28 AM Phone (Incoming) Silvia Boss Kimberly A Needs lab orders put in for her 6 month f/u T CUTTER documented in this encounter Plan of Treatment Not on file documented as of this encounter Results * THYROXINE (T4) FREE (02/14/2020 10:03 AM CDT) [facility] T4 FREE 1.1 0.9 - 1.7 ng/dL 02/14/2020 1:33 PM CDT [facility] Blood specimen (specimen) Venipuncture / Unknown 02/14/2020 10:03 AM CDT 02/14/2020 10:03 AM CDT us Suri Patel MD CHEMISTRY ORDERABLES Final R esult Performing Organization Address City/[facility] Co de Phone Number [facility] [address] [place] [address] * HEMOGLOBIN A1C W/ ESTIMATED GLUCOSE (02/14/2020 10:03 AM CDT) [facility] HGB-A1C 5.3 4.0 - 6.0 % 02/14/2020 11:50 AM CDT [facility] Est Average Glucose 105.4 mg/dL 02/14/2020 11:50 AM CDT [facility] Blood specimen (specimen) Venipuncture / Unknown 02/14/2020 10:03 AM CDT 02/14/2020 10:03 AM CDT Narrative [facility] - 02/14/2020 11:50 AM CDT HEMOGLOBIN A1C: DIABETIC PATIENTS: WELL-CONTROLLED: ?? 6.2 - 7.0 INTERMEDIATE WELL-CONTROLLED: ??7.0 - 9.0 POORLY-CONTROLLED: ??>9.0 us Suri Patel MD CHEMISTRY ORDERABLES Final R esult Performing Organization Address [facility] Co de Phone Number [facility] [address] [place] [address] * (ABNORMAL) LIPID PANEL (02/14/2020 10:03 AM CDT) CHOLESTEROL 218(H) <=200 mg/dL 02/14/2020 1:33 PM CDT [facility] TRIGLYCERIDES 135 <150 mg/dL 02/14/2020 1:33 PM CDT [facility] HDL CHOLESTEROL 75.3 >40 mg/dL 0 1:33 PM CDT [facility] LDL 116 5 - 130 mg/dL 02/14/2020 1:33 PM CDT [facility] VLDL 27 5 - 55 mg/dL 02/14/2020 1:33 PM CDT [facility] CHOL/HDL RATIO 2.9 0.0 - 4.4 02/14/2020 1:33 PM CDT [facility] NON-HDL CHOLESTEROL 142.7(H) <130 mg/dL 02/14/2020 1:33 PM CDT [facility] LIPID FASTING 02/14/2020 1:33 PM CDT [facility] Blood specimen (specimen) Venipuncture / Unknown 02/14/2020 10:03 AM CDT 02/14/2020 10:03 AM CDT us Suri Patel MD CHEMISTRY ORDERABLES Final R esult [facility] [address] [place] [address] * (ABNORMAL) CMP (COMPREHENSIVE METABOLIC PANEL) (02/14/2020 10:03 AM CDT) Pathologist [facility] SODIUM 138 136 - 144 mmol/L 02/14/2020 1:33 PM CDT [facility] POTASSIUM 4.5 3.5 - 5.1 mmol/L 02/14/2020 1:33 PM CDT [facility] CHLORIDE 99(L) 100 - 110 mmol/L 02/14/2020 1:33 PM CDT [facility] CO2, VENOUS 24 22 - 32 mmol/L 02/14/2020 1:33 PM [facility] ANION GAP 19.5 8.0 - 20.0 mmol/L 02/14/2020 1:33 PM T [facility] GLUCOSE 96 70 - 99 mg/dL 02/14/2020 1:33 PM T [facility] BUN 30(H) 8 - 23 mg/dL 02/14/2020 1:33 PM [facility] CREATININE, BLOOD 0.85 0.60 - 1.10 mg/dL 02/14/2020 1:33 PM T [facility] BUN/CREATININE RATIO 35(H) 12 - 20 ratio 02/14/2020 1:33 PM [facility] TOTAL PROTEIN 7.5 6.0 - 8.3 g/dL 02/14/2020 1:33 PM [facility] ALBUMIN 4.3 3.5 - 5.2 g/dL 02/14/2020 1:33 PM [facility] Comment: The colormetric methods used for the determination of Albumin may lead to falsely elevated test results in patients suffering from renal failure or insufficiency due to interference with other proteins. A/G RATIO 1.3 1.0 - 2.0 02/14/2020 1:33 PM [facility] CALCIUM 9.7 8.9 - 10.3 mg/dL 02/14/2020 1:33 PM [facility] T BILI 0.3 <=1.2 mg/dL 02/14/2020 1:33 PM [facility] SGOT (AST) 23 <=32 U/L 02/14/2020 1:33 PM [facility] SGPT (ALT) 31 <=33 U/L 02/14/2020 1:33 PM [facility] ALKALINE PHOSPHATASE 71 35 - 105 U/L 02/14/2020 1:33 PM [facility] GFR, EST. NONAFRICAN >60 >=60 02/14/2020 1:33 PM T [facility] GFR, EST. >60 >=60 020 1:33 PM CDT [facility] Comment: Creatinine Clearance is the preferred criteria for selecting drug dose adjustments in renally impaired patients. ??The GFR is provided as additional pertinent clinical information. GFR is reported in mL/min/1.73 sq m. Blood specimen (specimen) Venipuncture / Unknown 02/14/2020 10:03 AM CDT 02/14/2020 10:03 AM CDT us Suri Patel MD CHEMISTRY ORDERABLES Final R esult [facility] [address] [place] [address] documented in this encounter Visit Diagnoses Diagnosis Prediabetes- Primary Other abnormal glucose Iron deficiency anemia, unspecified iron deficiency anemia type Essential hypertension Unspecified essential hypertension Hyperlipidemia, unspecified hyperlipidemia type Acquired hypothyroidism Unspecified hypothyroidism Iron deficiency Other disorders of iron metabolism documented in this encounter Additional Health Concerns Assessment Noted Time PHQ-9 Depression Total Score: 0 08/30/20 19 3:00 PM SHEET CUTTER documented as of this encounter Care Teams Certified Composites Technician Relationship Specialty Start Date End Date Suri Patel MD PCP - General Family Medicine 07/25/15 12/10/20 documented as of this encounter
--- OUTSIDE RECORDS SUMMARY | 2024-09-21 04:19 | XMS_ITS | Encounter Summary ---
Author Organization [facility] Address [address] [place] [address] Phone Care Team Providers Care Live Hanger Name Role Phone Cate Patel MD Primary Care Provider + [phone] Reason for Visit * Episode Based Medications (Routine) - Closed Specialty Diagnoses / Procedures Referred By Contac t Referred To Contact Diagnoses Iron deficiency anemia due to chronic blood loss Hiatal hernia Vinay Forte MD [address] [place] [address] Phone: tel: fax: [facility] [address] [place] [address] Phone: tel: fax: Referral ID Status Reason Start Date Expiration Date Visits Re quested Visits Authorized [id number] Closed 03/19/2019 1 1 Encounter Details Date Type Department Care Team (Late st Contact Info) Description 08/17/2020 1:00 PM CERTIFIED ORTHOPTIST Clinical Support [facility] Oncology Services [address] [place] [phone] Pepe Anthony MD [address] [place] [address] Hiatal hernia (Primary Dx); Iron deficiency anemia [...] COVID-19? No / Unsure 08/17/2020 12:56 PM CERTIFIED ORTHOPTIST documented as of this encounter Last Filed Vital Signs Vital Sign Reading Time Taken Comments Blood Pressure 131/70 08/17/2020 1:00 PM CERTIFIED ORTHOPTIST Pulse 91 08/17/2020 1:00 PM CERTIFIED ORTHOPTIST Temperature 36.6 ??C (97.9 ??F) 08/17/2020 1:00 PM CS T Respiratory Rate 18 08/17/2020 1:00 PM CERTIFIED ORTHOPTIST Oxygen Saturation 99% 08/17/2020 1:00 PM CERTIFIED ORTHOPTIST Inhaled Oxygen Concentration - - Weight 112.9 kg (248 lb 14.4 oz) 08/17/2020 1:00 PM CERTIFIED ORTHOPTIST Height - - Body Mass Index 45.52 07/20/2020 1:23 PM CDT documented in this encounter Miscellaneous Notes * Interdisciplinary - Thania Keller RN - 08/17/2020 1:00 PM CST VS obtained. IV started x1 attempt and meds given per MD order. Pt tolerated well. IV DC and pt left tx area in stable condition. IFIED ORTHOPTIST documented in this encounter Plan of Treatment [...] mg, Intravenous, ONCE, 1 dose, On Carolyn 08/17/20 at 1330, Administer over 30 MinutesIndications:Hiatal hernia,Iron deficiency anemia due to chronic blood loss Given 08/17/2020 1:22 PM CERTIFIED ORTHOPTIST 750 mg sodium chloride 0.9 % 50 mL IV bolus Intravenous, ONCE, 1 dose, On Carolyn 08/17/20 at 1330, Use as flush before and after chemotherapy administration.Indications:Hiatal hernia,Iron deficiency anemia due to chronic blood loss New Bag 08/17/2020 1:52 PM CERTIFIED ORTHOPTIST documented in this encounter Additional Health Concerns Assessment Noted Time PHQ-9 Depression Total Score: 0 08/30/20 19 3:00 PM CERTIFIED ORTHOPTIST documented as of this encounter Care Teams Live Hanger Relationship Specialty Start Date End Date Cate Patel MD PCP - General Family Medicine 07/25/15 12/10/20 documented as of this encounter
--- OUTSIDE RECORDS SUMMARY | 2024-09-21 04:19 | XMS_ITS | Encounter Summary ---
Author Organization [facility] Address [address] [place] [address] Phone Care Team Providers Care Instructor Industrial Design Name Role Phone Cate Patel MD Primary Care Provider [phone] Reason for Visit * Reason Onset Date Comments Results 05/07/2020 Encounter Details Date Type Department Care Team (Late st Contact Info) Description 05/07/2020 Telephone [facility] - Endocrinology - [place] [address] [place] [address] Liliya Rai MD [address] [address] Results Social History Tobacco Use [...] Telephone Encounter - Vira Turcios RN - 05/08/2020 9:20 AM CDT Patient informed. Verbalizes understanding. * Telephone Encounter - Liliya Rai MD - 05/07/2020 11:25 PM CDT Please inform her that thyroid ultrasound showed slight changes compared to her prior study. We will discuss it further at the next visit. documented in this encounter Plan of Treatment Not on file documented as of this encounter Visit Diagnoses Not on filedocumented in this encounter Additional Health Concerns Assessment Noted Time PHQ-9 Depression Total Score: 0 08/30/20 19 3:00 PM E COMMERCE RETAILER documented as of this encounter Care Teams Instructor Industrial Design Relationship Specialty Start Date End Date Cate Patel MD PCP - General Family Medicine 07/25/15 12/10/20 documented as of this encounter
--- OUTSIDE RECORDS SUMMARY | 2024-09-21 04:19 | XMS_ITS | Encounter Summary ---
Author Organization [address] Care Team Providers Care Computer Numerical Control Programmer Name Role Phone Cate Patel MD Primary Care Provider Encounter Details Date Type Department Care Team (Latest Contact Info) Description 11/18/2019 Travel Social History Tobacco Use Types Packs/Day [...] Total Score: 0 08/30/20 19 3:00 PM NURSES DIRECTOR documented as of this encounter Care Teams Computer Numerical Control Programmer Relationship Specialty Start Date End Date Cate Patel MD PCP - General Family Medicine 07/25/15 12/10/20 documented as of this encounter
--- OUTSIDE RECORDS SUMMARY | 2024-09-21 04:19 | XMS_ITS | Encounter Summary ---
Author Organization [facility] Address [address] [place] [address] Phone Care Team Providers Care Dope Weigh Operator Name Role Phone Cate Patel MD Primary Care Provider [phone] Reason for Visit * Auth/Cert Specialty Diagnoses / Procedures Referred By Contac t Referred To Contact Referral ID Status Reason Start Date Expiration Date Visits Re quested Visits Authorized [id number] 1 1 Encounter Details Date Type Department Care Team (Late st Contact Info) Description 08/03/2020 1:00 PM CDT Clinical Support [facility] Oncology Services [address] [place] [phone] Pepe Anthony MD [address] [place] [address] Hiatal hernia (Primary Dx); Iron deficiency anemia [...] Sign Reading Time Taken Comments Blood Pressure 108/64 08/03/2020 1:10 PM CDT Pulse 84 08/03/2020 1:10 PM CDT Temperature 36.7 ??C (98 ??F) 08/03/2020 1:10 PM CDT Respiratory Rate 18 08/03/2020 1:10 PM CDT Oxygen Saturation 98% 08/03/2020 1:10 PM CDT Inhaled Oxygen Concentration - - Weight 114.5 kg (252 lb 8 oz) 08/03/2020 1:10 PM CDT Height - - Body Mass Index 46.18 07/20/2020 1:23 PM CDT documented in this encounter Miscellaneous Notes * Interdisciplinary - Thania Keller RN - 08/03/2020 1:00 PM CDT VS obtained. IV started to LAC x1 attempt and Injectafer given per MD order. Pt tolerated well. IV DC and pt left tx area in stable condition. documented in this encounter [...] mg, Intravenous, ONCE, 1 dose, On Carolyn 08/03/20 at 1330, Administer over 30 MinutesIndications:Hiatal hernia,Iron deficiency anemia due to chronic blood loss Given 08/03/2020 1:22 PM CDT 750 mg sodium chloride 0.9 % 100 mL IV bolus Intravenous, ONCE, 1 dose, On Carolyn 08/03/20 at 1330, Use as flush before and after chemotherapy administration.Indications:Hiatal hernia,Iron deficiency anemia due to chronic blood loss New Bag 08/03/2020 1:58 PM CDT documented in this encounter Additional Health Concerns Assessment Noted Time PHQ-9 Depression Total Score: 0 08/30/20 19 3:00 PM INFORMATION ASSURANCE ANALYST documented as of this encounter Care Teams Dope Weigh Operator Relationship Specialty Start Date End Date Cate Patel MD PCP - General Family Medicine 07/25/15 12/10/20 documented as of this encounter
--- OUTSIDE RECORDS SUMMARY | 2024-09-21 04:19 | XMS_ITS | Encounter Summary ---
Author Organization [facility] Care Team Providers Care Soils Engineer Name Role Phone Cate Patel MD Primary Care Provider [phone] Encounter Details Date Type Department Care Team (Latest Contact Info) Description 07/20/2020 Travel Social History Tobacco Use Types Packs/Day [...] Total Score: 0 08/30/20 19 3:00 PM MUFFLER MECHANIC documented as of this encounter Care Teams Soils Engineer Relationship Specialty Start Date End Date Cate Patel MD PCP - General Family Medicine 07/25/15 12/10/20 documented as of this encounter
--- OUTSIDE RECORDS SUMMARY | 2024-09-21 04:20 | XMS_ITS | Encounter Summary ---
Author Organization [facility] Care Team Providers Care National Van Owner Operator Name Role Phone Cate Patel MD Primary Care Provider Encounter Details Date Type Department Care Team (Latest Contact Info) Description 09/21/2019 Travel Social History Tobacco Use Types Packs/Day [...] Total Score: 0 08/30/20 19 3:00 PM CUSTOMER SUPPORT ASSISTANT documented as of this encounter Care Teams National Van Owner Operator Relationship Specialty Start Date End Date Cate Patel MD PCP - General Family Medicine 07/25/15 12/10/20 documented as of this encounter
--- OUTSIDE RECORDS SUMMARY | 2024-09-21 04:20 | XMS_ITS | Encounter Summary ---
Author Organization [facility] Address [address] [place] [address] Phone Care Team Providers Care Sales Product Specialist Name Role Phone Cate Patel MD Primary Care Provider [phone] Reason for Visit * Reason Comments Follow-up Encounter Details Date Type Department Care Team (Late st Contact Info) Description 09/21/2019 1:30 PM REGIONAL CLIMATE CHANGE ANALYST Office Visit [facility] [address] [place] [id number] Vinay Myers MD [address] [place] [address] Iron deficiency (Primary Dx) Discharge Disposition: Discharged to home [...] Sign Reading Time Taken Comments Blood Pressure 135/83 09/21/2019 1:32 PM REGIONAL CLIMATE CHANGE ANALYST Pulse 84 09/21/2019 1:32 PM REGIONAL CLIMATE CHANGE ANALYST Temperature 36.7 ??C (98.1 ??F) 09/21/2019 1:32 PM CS T Respiratory Rate 20 09/21/2019 1:32 PM REGIONAL CLIMATE CHANGE ANALYST Oxygen Saturation 97% 09/21/2019 1:32 PM REGIONAL CLIMATE CHANGE ANALYST Inhaled Oxygen Concentration - - Weight 107 kg (235 lb 14.4 oz) 09/21/2019 1:32 P M REGIONAL CLIMATE CHANGE ANALYST Height 157.5 cm (5' 2 ) 09/21/2019 1:32 PM REGIONAL CLIMATE CHANGE ANALYST Body Mass Index 43.15 09/21/2019 1:32 PM REGIONAL CLIMATE CHANGE ANALYST documented in this encounter Progress Notes * Vinay Myers MD - 09/21/2019 1:30 PM CST Outpatient Hem/Onc Progress Note PROGRESS NOTE Silvia Boss is a 74 y.o. female seen today for follow up of anemia with iron deficiency. She reports more fatigue and persistent headache pituitary tumor. She has been followed by neurologist at [place]. Denies bleeding. Denies fever, chills or night sweats. Denies weight loss. No dysphagia, nausea/ vomiting or abdominal pain. No chest pain. DIAGNOSIS/TREATMENT HISTORY: Past Medical History Positives Diagnosis [...] Wave Lithotripsy RIGHT-; Surgeon: Neeta Edwards MD; Location:[facility]; Service: ??? OVARY REMOVAL ??? LAKHWINDER AND BSO Fibroids ??? TOTAL KNEE ARTHROPLASTY Bilateral ??? UPPER GASTROINTESTINAL ENDOSCOPY N/A 10/27/2015 Procedure: EGDcol plus dilatation with 54fr. rajan; Surgeon: Talha Catherine DO; Location: [facility]; Service: ??? UPPER GASTROINTESTINAL ENDOSCOPY N/A 06/26/2018 Procedure: EGD: yee test, mild esophageal dysmotility, hiatal hernia, dilation 54 fr rajan; Surgeon: Talha Catherine DO; Location: [facility]; Service: Gastroenterology Outpatient Medications Marked as Taking for the 09/21/19 encounter (Office Visit) with Vinay Myers MD Medication Sig Dispense Refill ??? Aspirin 81 MG Tablet Take 81 mg by mouth daily. ??? [id number]-[id number]-PBAK PO Take by mouth. ??? CARTIA XT 240 MG CAPSULE SR 24 HR TAKE 1 CAPSULE BY MOUTH ONCE DAILY 90 Cap 3 ??? Cholecalciferol (VITAMIN D3 PO) Take by mouth. ??? levothyroxine (SYNTHROID) 75 MCG Tablet TAKE 1 TABLET BY MOUTH ONCE DAILY 90 Tab 1 ??? lisinopril-hydroCHLOROthiazide (PRINZIDE, ZESTORETIC) 20-25 MG Tablet TAKE 1 TABLET BY MOUTH ONCE DAILY 90 Tab 1 ??? Loperamide HCl (IMODIUM A-D) 2 MG Tablet Take 1 Tab by mouth daily as needed. ??? Melatonin 5 MG Capsule Take 5 mg by mouth nightly. ??? Naltrexone-buPROPion HCl ER (CONTRAVE) 8-90 MG TABLET SR 12 HR Take 2 Tabs by mouth 2 times daily. 120 Tab 2 ??? omeprazole (PRILOSEC) 40 MG CAPSULE DELAYED RELEASE Take 1 Cap by mouth daily. 90 Cap 3 Social History Socioeconomic History ??? Marital status: [...] file Gets together: Not on file Attends sikh service: Not on file Active member of [...] Sister ??? Hypertension Sister Allergies as of 09/21/2019 ??? (No Known Allergies) REVIEW OF SYSTEMS Systemic: Chronic fatigue. No fever, no chills, no night sweats, and no recent weight change. Head: No headache, no facial pain, and no sinus pain. Neck: [...] chest pain or discomfort, no palpitations. Pulmonary: Dyspnea during exertion. No cough, no hemoptysis, and no wheezing. Gastrointestinal: Normal appetite, no dysphagia, and no heartburn. No nausea, no vomiting, no abdominal pain, and no melena. No diarrhea. No constipation. Genitourinary: No hematuria and no increase in urinary frequency. No dysuria. No genital lesion. Endocrine: No polydipsia and no excessive sweating. Hematologic: No easy bleeding and no tendency for easy bruising. Musculoskeletal: No muscle aches, no localized joint pain, and no localized joint stiffness. No history of falls. No vertebral fractures in past. Neurological: No dizziness, no vertigo, no fainting, no motor disturbances, and no sensory disturbances. Psychological: No anxiety, no depression, and no sleep disturbances. Skin: No pruritus. No skin lesions and no rash. Physical Exam General: Comfortable, obese, no acute distress. BP 135/83 (BP Location: Left Arm, BP Position: Sitting, BP Cuff Size: Large) Pulse 84 Temp 98.1??F (36.7 ??C) Resp 20 Ht 5' 2 (1.575 m) Wt 235 lb 14.4 oz (107 kg) SpO2 97% BMI 43.15 kg/m?? HEENT: PERRL, EOMI, sclera clear, face [...] is fluent. Psychiatric: normal affect PAIN ASSESSMENT: Denies pain DATA: Lab Results Component Value Date WBC 8.84 09/16/2019 RBC 3.60 (L) 09/16/2019 HEMOGLOBIN 11.5 (L) 09/16/2019 HEMATOCRIT 36.0 09/16/2019 MCV 100.0 (H) 09/16/2019 MCH 31.9 09/16/2019 MCHC 31.9 09/16/2019 PLATELETCNT 262 09/16/2019 RDW 11.4 (L) 09/16/2019 LYMPHOCYTES 14.5 (L) 08/25/2019 RELEOS 1.4 08/25/2019 RELBAS 0.8 08/25/2019 ANC 7.02 08/25/2019 MONOCYTES 0.71 08/25/2019 EOSINOPHILS 0.13 08/25/2019 BASOPHILS 0.07 08/25/2019 Lab Results Component Value Date SODIUM 139 08/25/2019 POTASSIUM 4.3 08/25/2019 CHLORIDE 97 (L) 08/25/2019 ANIONGAP 22.3 (H) 08/25/2019 GLUCOSE 105 (H) 08/25/2019 BUN 29 (H) 08/25/2019 CREATININE 0.95 08/25/2019 TOTALPROTEIN 7.5 08/25/2019 ALBUMIN 4.3 08/25/2019 CALCIUM 9.8 08/25/2019 SGPTALT 21 08/25/2019 ALKALINEPHO 92 08/25/2019 No components found for: FOLATE Lab Results Component Value Date [id number] 925 (H) 06/24/2018 Lab Results Component Value Date TROPONINI <0.300 04/07/2018 Lab Results Component Value Date FERRITIN 1,010 (H) 06/16/2019 No results found for: PHARTERIAL, PO2ART, FVT3ERD, CO2ART, O2ART No results found for: LACACIDPOCT, LACTICA Lab Results Component Value Date INR 0.9 11/11/2018 PTP 12.1 11/11/2018 No results found for: ANTIMITO No results found for: ABORH, ABOTYPING, RH No results found for this or any previous visit. No results found for: PRADEEP No results found for: AFP No results found for: CA125 No results found for: CA199 No results found for: CEA No results for input(s): [id number] in the last 72 hours. Invalid input(s): [id number] No results found for: CRP No results found for: ESR Lab Results Component Value Date HGBA1C 5.2 08/25/2019 Lab Results Component Value Date HAPTOGLOBIN 265 12/30/2016 No results found for: HCV No results found for: COMPLEMENTT, U1EJCPTFTVB, [id number] No results found for: HAV, HAVIGM, HEPB, HBCAB, HBEA, HCV Results for orders placed or performed in visit on 12/30/16 HEMOGLOBIN ELECTROPHORESIS ( & A2) Result Value Ref Range HEMOGLOBIN, 0.1 <2.0 % HGB A2 2.2 1.5 - 3.0 % HEMOGLOBIN A 96 % HB ELECTRO. INTERP Comment: Hemoglobin A. Reviewed by Dr. Leonora Alford, PhD. Verified by Dr. Amos Orellana MD. Lab Results Component Value Date TIBC 243 09/16/2019 Lab Results Component Value Date IRON 47.79 09/16/2019 FERRITIN 1,010 (H) 06/16/2019 Lab Results Component Value Date IRONSATURATI 20 09/16/2019 Lab Results Component Value Date RETICULOCYTE 1.9 06/24/2018 No results found for: ESR, PRADEEP, RHEUMATOIDFR Lab Results Component Value Date TSH 1.640 08/25/2019 T4FREE 1.5 08/25/2019 PATHOLOGY: Lab Results Component Value Date FINALDX Normal 46,XX[20] 11/11/2018 DIAGNOSTIC IMAGING STUDIES: Us Thyroid/neck Result Date: 09/18/2018 IMPRESSION: Thyroid nodules are noted bilaterally. These appear stable No results found for this or any previous visit. Results for orders placed during the hospital encounter of 04/07/19 MRI BRAIN W/WO CONTRAST Narrative EXAM DESCRIPTION: MRI BRAIN W/WO CONTRAST REASON FOR STUDY: Chronic headaches for several months. Pain radiates to the left side of face. TECHNIQUE: Multiplanar imaging includes noncontrast T1, T2, FLAIR, diffusion with ADC map and post contrast T1 sequences. Additional sequence(s) sensitive to blood products. Images stored on PACS. CONTRAST TYPE/DOSE: 20 cc MultiHance injected via right antecubital vein COMPARISON: None. FINDINGS: CEREBRUM: No mass, mass effect, or midline shift.No intracranial hemorrhage or blood degradation products are present on the gradient echo sequence. No abnormal parenchymal enhancement. WHITE MATTER: There is partially confluent T2/FLAIR hyperintensity noted throughout the supratentorial white matter. While nonspecific, this most likely indicates the presence of moderate chronic ischemic microangiopathy. POSTERIOR FOSSA: Unremarkable. There is no cerebellar tonsillar ectopia. DIFFUSION IMAGING: No cytotoxic edema is identified. EXTRAAXIAL SPACES: No mass, fluid collection or abnormal meningeal enhancement. BRAIN VOLUME: Commensurate with age and volume loss. PITUITARY: There is a left-sided eccentric mass within the sella that is difficult to separate from the pituitary gland. There is remodeling of the clivus with perhaps some infra sellar extension along the sphenoid sinus as well as laterally along the cavernous sinus. Best estimation of size at 1.7 x 1.3 x 1.1 cm. This could represent an eccentric adenoma but nonspecific. MRI of the sella is recommended for further evaluation. VASCULATURE: Flow voids at the skull base are present. ORBITS: Unremarkable. There has been prior cataract surgery. PARANASAL SINUSES AND MASTOIDS: Sinuses are clear. Trace amount of fluid within the left mastoids. OTHER: No other significant finding. THIS IS AN ELECTRONICALLY VERIFIED FINAL REPORT 04/08/2019 7:42 AM - Electronically signed by Ti Elizabeth D.O. : Report ID: [id number] Reading Location: [place] [address] Impression IMPRESSION: 1. Involutional changes and chronic ischemic microangiopathy. No acute intracranial abnormality is identified. 2. Left-sided eccentric mass along the sella and ipsilateral cavernous sinus. 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 MRI of the sella is recommended for further characterization. No results found for this or any previous visit. No results found for this or any previous visit. No results found for this or any previous visit. Assessment: 1. Iron deficiency. Resolved after IV iron therapy. But iron profile is decreasing gradually. 2. Anemia, multifactorial etiology including chronic kidney disease. 3. Hiatal hernia. 4. Pituitary tumor with headache. Plan: 1. I reviewed above lab test result with patient. Patient is aware of slowly decreasing iron profile. She would benefit from intravenous iron as needed. 2. I discussed with patient about her risk of recurrent iron deficiency due to hiatal hernia and chronic kidney disease associated functional iron deficiency and compromised iron absorption and utilization. She has had chronic anemia which is multifactorial. 3. I advised patient to follow up with GI for hiatal hernia. 4. Get lab: CBC, iron profile 2 months or sooner needed. Follow-up in 2 months Documentation was brought forward from my note on 06/22/19 and completed using a template. I have seen and examined the patient. Everything documented was personally performed at this visit with the necessary additions, deletions and changes made as appropriate. The patient was given an opportunity to ask questions, and all questions answered to patient's satisfaction. Patient verbalizes understanding of the plan as outlined above. VINAY MYERS MD 09/21/2019 1:51 PM ONAL CLIMATE CHANGE ANALYST documented in this encounter Miscellaneous Notes * Interdisciplinary - Ev Ocampo - 09/21/2019 1:30 PM CST The patient has right shoulder pain. Pain score is 6/10. ONAL CLIMATE CHANGE ANALYST * Addendum Note - Reymundo Dailey RN - 09/21/2019 1:30 PM CSTAddended by: REYMUNDO DAILEY on: 03/15/2020 12:33 PM Modules accepted: Orders documented in this encounter Plan of Treatment Not on file documented as of this encounter Visit Diagnoses Diagnosis Iron deficiency- Primary Other disorders of iron metabolism documented in this encounter Additional Health Concerns Assessment Noted Time PHQ-9 Depression Total Score: 0 08/30/20 19 3:00 PM REGIONAL CLIMATE CHANGE ANALYST documented as of this encounter Care Teams Sales Product Specialist Relationship Specialty Start Date End Date Cate Patel MD PCP - General Family Medicine 07/25/15 12/10/20 documented as of this encounter
--- OUTSIDE RECORDS SUMMARY | 2024-09-21 04:20 | XMS_ITS | Encounter Summary ---
Author Organization [facility] Address [address] [place] [address] Phone Care Team Providers Care Deckhand Shrimp Boat Name Role Phone Cate Patel MD Primary Care Provider Reason for Visit * Reason Comments Medication Refill Encounter Details Date Type Department Care Team (Late st Contact Info) Description 10/08/2019 Refill [facility] [address] [place], [place] [id number] Cate Patel MD [address] [place] [address] Medication Refill Social History Tobacco [...] Telephone Encounter - Eunice Srinivasan RN - 10/08/2019 3:03 PM USER SUPPORT SPECIALIST Medication(s) refilled and signed per [facility] Chronic Medication Refill Standing Order for Pediatric and Adult Patients. SUPPORT SPECIALIST documented in this encounter Plan of Treatment Not on file documented as of this encounter Visit Diagnoses Not on filedocumented in this encounter Additional Health Concerns Assessment Noted Time PHQ-9 Depression Total Score: 0 08/30/20 19 3:00 PM USER SUPPORT SPECIALIST documented as of this encounter Care Teams Deckhand Shrimp [employer] Relationship Specialty Start Date End Date Cate Patel MD PCP - General Family Medicine 07/25/15 12/10/20 documented as of this encounter
--- OUTSIDE RECORDS SUMMARY | 2024-09-21 04:20 | XMS_ITS | Encounter Summary ---
Author Organization [facility] Address [address] [place] [address] Phone Care Team Providers Care [employer] Agent Team Member Name Role Phone Suri Patel MD Primary Care Provider Reason for Visit * Reason Comments Follow-up migraine Encounter Details Date Type Department Care Team (Late st Contact Info) Description 10/20/2019 8:30 AM CHAIR SPRING ASSEMBLER Office Visit [facility] - Neurology - [address] [place] [id number] Mary Hyman, SOFTWARE ENGINEERING SPECIALIST, NON DESTRUCTIVE TESTING SCIENTIST [address] [place] [address] Migraine without aura and without status migrainosus, not intractable (Primary Dx); Pituitary macroadenoma (HCC) Discharge Disposition: Discharged to [...] Sign Reading Time Taken Comments Blood Pressure 130/80 10/20/2019 8:42 AM CHAIR SPRING ASSEMBLER Pulse 99 10/20/2019 8:42 AM CHAIR SPRING ASSEMBLER Temperature 36.8 ??C (98.2 ??F) 10/20/2019 8:42 AM CS T Respiratory Rate 18 10/20/2019 8:42 AM CHAIR SPRING ASSEMBLER Oxygen Saturation 96% 10/20/2019 8:42 AM CHAIR SPRING ASSEMBLER Inhaled Oxygen Concentration - - Weight 108 kg (238 lb) 10/20/2019 8:42 AM CHAIR SPRING ASSEMBLER Height 157.5 cm (5' 2 ) 10/20/2019 8:42 AM CHAIR SPRING ASSEMBLER Body Mass Index 43.53 10/20/2019 8:42 AM CHAIR SPRING ASSEMBLER documented in this encounter Patient Instructions * Patient Instructions* Mary Hyman APN, CNP - 10/20/2019 8:30 AM CHAIR SPRING ASSEMBLER Start effexor for migraine prevention, do not abruptly discontinue this medication. Start with 37.5mg every morning, call the office if you are unable to tolerate this medication or feel that you need the dose increased. Discontinue amitriptyline script as this was ineffective. R SPRING ASSEMBLER R SPRING ASSEMBLER documented in this encounter Progress Notes * Mary Hyman APN, CNP - 10/20/2019 8:30 AM CST Impression & Recommendations Silvia was seen today for migraine. Diagnoses and all orders for this visit: Migraine without aura and without status migrainosus, not intractable - Patient to start Effexor script for preventative management, reviewed dosing and common side effects today with patient. Pituitary macroadenoma - Continue treatment with endocrinology. The impression was reviewed with Silvia Boss. Treatment options were reviewed from conservative to aggressive. We discussed the need to encorporate life style modification including exercise, weight loss, migraine management. The patient demonstrated verbal understanding of all instructions given. HISTORY OF PRESENT ILLNESS: Patient presents today for ongoing evaluation of migraines. Patient reports she discontinued her amitriptyline script as she noticed excessive hair loss after starting it. She reports her headaches continue to be a 5/10 daily and will increase to a 9-10/10 if she becomes upset or stressed. She is open to trying other medications, however she is cautious of any that have weight gain as a side effect as she has to lose 15lbs to have right shoulder surgery and 30lbs for her right hip surgery. Patient continues to see and notes he feels that her headaches are mostly due to her pituitary tumor. She has a follow-up appointment with , neurosurgery, in January where she will have arepeat brain MRI to determine if surgery is needed. Patient has so far tried and failed topamax and amitriptyline for migraine management. Previous HPI: Patient presents today for ongoing evaluation of her migraines. Patient reports she was at her endocrinology appointment in April and it was noted she was on topamax and was cautioned that it may cause worsening memory loss. Patient quit taking it in May and headaches have since returned daily with severe migraines 1x/week. She has been taking OTC tylenol without relief. Patient notes that her memory loss started with her mold issues around the onset of her migraines. Patient states she did not notice any changes in her memory with the topamax. Patient reports she has trouble sleeping and has to alternate sleeping in her bed and recliner. Sheneeds a right hip replacement and is currently being seen for this. She stays active and swims every morning 5 days/week. Patient reports she is seeing endocrinology and was told to continue monitoring symptoms for the next 6 months then follow up in the office. Past Medical History Positives Diagnosis Date ??? Autoimmune disease (HCC) DONNA ??? Bursitis Lt shoulder ??? Colon polyp ??? Depression ??? Diverticula of colon ??? DM (diabetes mellitus) ([facility]) diet controlled ??? Dyslipidemia ??? Eczema ??? Esophageal dysmotility ??? Fe deficiency anemia ??? GERD (gastroesophageal reflux disease) ??? Donna's disease ??? Hypertension ??? Kidney stone 09/2016 Right ??? Low bone mass ??? Neuropathy, peripheral ??? OA (osteoarthritis) ??? 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 MARY (obstructive sleep apnea) cpap ??? Pancreatitis 2013 ??? Sinusitis ??? Spinal stenosis ??? Status post epidural steroid injection right shoulder and right hip ??? Thyroid cancer (HCC) I 131 treatment ??? Vitamin D deficiency FAMILY HISTORY: Patient's family history includes Arthritis in her father and mother; Diabetes in her brother and mother; Emphysema in her father; Heart Attack in her mother; Heart Disease in her brother; Hypertension in her brother, brother, father, mother, sister, sister, sister, and sister; Stroke in her mother. SOCIAL HISTORY: Social History Tobacco Use ??? Smoking status: Never Smoker ??? Smokeless tobacco: Never Used Substance Use Topics ??? Alcohol use: No Alcohol/week: 0.0 oz MEDICATIONS: Outpatient Medications Marked as Taking for the 10/20/19 encounter (Office Visit) with Mary Hyman APN, NON DESTRUCTIVE TESTING SCIENTIST Medication Sig Dispense Refill ??? Aspirin 81 MG Tablet Take 81 mg by mouth daily. ??? [id number] PO Take by mouth. ??? CARTIA XT [...] Cap by mouth daily. 90 Cap 3 ALLERGIES: No Known Allergies Review of Systems The review of routinely screened 14 organs and systems is negative, except for mentioned elsewhere. Patient denied fever, chills, unexpected weight loss, abdominal pain, changes in bowel or bladder function including worsening incontinence or retention, numbness in the buttocks, any recent trauma or falls. See HPI. Objective: VITALS: BP 130/80 Pulse 99 Temp 98.2 ??F (36.8 ??C) (Tympanic) Resp 18 Ht 5' 2 (1.575 m) Wt 238 lb (108 kg) SpO2 96% BMI 43.53 kg/m?? Body mass index is 43.53 kg/m??. Vitals: 10/20/19 0842 PainSc: 5 GENERAL EXAMINATION: General appearance: pleasant 74 y.o. female, in no acute distress; cooperative and conversant. Affect is appropriate to situation. Head: Normocephalic, atraumatic, without obvious abnormality. Eyes: No ptosis, periorbital or eyelid edema. Anicteric sclera without conjunctivitis. Neck: supple, trachea midline, no goiter. Respiratory: regular rate with unlabored breathing. Cardiac: RRR, no murmurs, rubs, gallops. No peripheral LE edema. Skin:dry and warm without evident rashes or lesions. MUSCULOSKELETAL/NEURO EXAMINATION: Mental Status: Alert, Awake, and Oriented to Person, Place and Time There is no problem with concentration and attention. Speech is fluent. Verbal recall-normal. Visuospatial skills- normal. Fund of knowledge is good. Memory is good for recent and remote events. ?? Cranial Nerve Exam: CN II: visual patten are full to confrontation. Fundi are clear without hemorrhage or exudate, discs are sharp.CN III: Pupils are equal, round and reactive bilaterally; CN III, IV, extraocular movements are full with normal saccades and normal pursuits. There are no square wave jerks. CN VIII: Hearing is intact bilaterally. CN V: Facial sensation is intact; CN VII: face is symmetric. CN IX: Palate elevates symmetrically. CN XII: Tongue is midline. CN XI: Shrug is 5/5. ?? Motor Exam: Full ROM in upper and lower extremities, flexion/extension, lateral extension of back. Good muscle tone in UE and Le. A motor examination was performed ?? Muscles Tested Right Left Deltoid 5/5 5/5 Biceps 5/5 5/5 Triceps 5/5 5/5 Wrist Flexors 5/5 5/5 Wrist Extensors 5/5 5/5 Hemodialysis Charge Nurse 5/5 5/5 Hip Flexors 5/5 5/5 Quadriceps 5/5 5/5 Hamstrings 5/5 5/5 Dorsiflexion 5/5 5/5 EHL 5/5 5/5 DTRs: 2+ bilateral upper and lower extremities. Babinski is downgoing bilaterally. Hoffmans negative bilaterally. Sensory Exam: No specific tenderness to palpation of spinous processes, paraspinal muscles. Sensation intact to light touch. Pin prick, temperature, proprioception, and vibration are intact. ?? Coordination: Finger to nose normal bilaterally. Heel to sharif intact and appropriate. Romberg is negative. ?? Gait: Normal tandem gait, normal heel and toe walking. Normal armswing and turns. Psych: No obvious signs of anxiety, depression, psychosis, or hallucinations Lab Review: CBC: Lab Results Component Value Date WBC 8.84 09/16/2019 RBC 3.60 (L) 09/16/2019 HEMOGLOBIN 11.5 (L) 09/16/2019 HEMATOCRIT 36.0 09/16/2019 PLATELETCNT 262 09/16/2019 CMP: Lab Results Component Value Date SODIUM 139 08/25/2019 POTASSIUM 4.3 08/25/2019 CHLORIDE 97 (L) 08/25/2019 CO2VEN 24 08/25/2019 ANIONGAP 22.3 (H) 08/25/2019 GLUCOSE 105 (H) 08/25/2019 BUN 29 (H) 08/25/2019 CREATININE 0.95 08/25/2019 BCRATIO8 31 (H) 08/25/2019 TOTALPROTEIN 7.5 08/25/2019 ALBUMIN 4.3 08/25/2019 AGRATIO 1.2 12/30/2016 CALCIUM 9.8 08/25/2019 TBIL 0.4 08/25/2019 SGPTALT 21 08/25/2019 ALKALINEPHO 92 08/25/2019 GFRNA 58 (L) 08/25/2019 GFRA >60 08/25/2019 Mg: Lab Results Component Value Date MAGNESIUM 1.8 04/07/2018 Thyroid: Lab Results Component Value Date TSH 1.640 08/25/2019 T4FREE 1.5 08/25/2019 Rheumatology: No results found for: CRP, ESR, PRADEEP Radiology Reviewed: 04/26/2019 MRI pituitary gland Impression: 1. Gadolinium based contrast agent held secondary to declining GFR (26; 04/07/2019: GFR: 48). As such, incompletely evaluated left sellar mass. 2. 1.8 cm expansile mass with signal characteristics as above isocentric to the left eccentric sella turcica with inferior extension into the clivus and left sphenoid sinus and lateral extension into the left cavernous sinus. While incompletely characterized in the absence of contrast administration, differential does include pituitary macroadenoma. Unenhanced characteristics do not favor Rathke's cleft cyst, craniopharyngioma, chordoma, teratoma, or germinoma. While not an angiographic study, there is no overt evidence of communication with the flow voids of the internal carotid arterial vasculature to support aneurysm, though CTA head can be performed for further evaluation for a vascular etiology. Additionally, granulomatous mass (if history of tuberculosis, sarcoidosis, and/or [place] disease) and lymphoma could manifest a similar appearance. Pituitary metastases entertained if provided history of primary malignancy. 3. Lesion extends to the median carotid line of the cavernous segment of the left ICA without extension beyond as evidence of Knosp grade 1 cavernous sinus invasion. 4. Pituitary protocol MRI without (and, if GFR will allow, with) contrast in 2-3 months is recommended for initial re-evaluation. 5. Otherwise, chronic findings as above. 04/07/2019 MRI brain w/wo contrast Impression: 1. Involuational all changes and chronic ischemic microangiopathy. No acute intracranial abnormality is identified. 2. Left-sided eccentric mass along the sella and ipsilateral cavernous sinus. 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 MRI of the sella is recommended for further characterization. Greater than 50% of the 30 of face to face minutes visit was spent in counseling and/or coordination of care for the above mentioned problems. In particular, the patient was counseled about etiology of her symptoms, suggested diagnosis, prognosis, available management options, and importance of compliance. Documentation for this visit on 10/20/2019 was completed using a template. I have seen and examinedthe patient. Everything documented was personally performed at this visit with the necessary additions, deletions and changes made as appropriate. Mary Hyman APN, ALDA Primary Care Physician: SURI PATEL MD Cosigned by Delroy Arreola MD at 10/21/2019 9:37 PM CHAIR SPRING ASSEMBLER R SPRING ASSEMBLER R SPRING ASSEMBLER documented in this encounter Plan of Treatment Not on file documented as of this encounter Visit Diagnoses Diagnosis Migraine without aura and without status migrainosus, not intractable- Primary Migraine without aura, without mention of intractable migraine without mention of status migrainosus Pituitary macroadenoma (HCC) Benign neoplasm of pituitary gland and craniopharyngeal duct (pouch) documented in this encounter Additional Health Concerns Assessment Noted Time PHQ-9 Depression Total Score: 0 08/30/20 19 3:00 PM CHAIR SPRING ASSEMBLER documented as of this encounter Care Teams State [employer] Agent Team Member Relationship Specialty Start Date End Date Suri Patel MD PCP - General Family Medicine 07/25/15 12/10/20 documented as of this encounter
--- OUTSIDE RECORDS SUMMARY | 2024-09-21 04:25 | XMS_ITS | Encounter Summary ---
Author Organization [facility] Healthcare Address [address] [place] [address] Care Team Providers Care Marketing Rotation Associate Name Role Phone Unknown, Notinfile Primary Care Provider Unavail able Encounter Details Date Type Department Care Team (Late st Contact Info) Description 04/16/2023 9:00 AM CDT Lab [address] [address] Social History Tobacco Use Types Packs/Day Years Used Date Smoking Tobacco: Never Smokeless Tobacco: Never Alcohol Use Standard Drinks/Week Comments Never 0 (1 standard drink = 0.6 oz pur e alcohol) AUDIT-C Answer Date Recorded Frequency of Alcohol Consumption Never 05/25/2019 Average Number of Drinks Not on file 019 Frequency of Binge Drinking Not on file 05/07 Comments Unknown Sex and Gender Information Value Date Recorded Sex Assigned at Not on file Legal Sex Female 12:44 AM [employer] Gender Identity Not on file Sexual Orientation Not on file Occupation Industry Job Start Date Job End Date retired Not on file Not on file Not on file documented as of this encounter Plan of Treatment Not on file documented as of this encounter Procedures Procedure Name Priority Date/Time Associated Diagnosis Comments CREATININE, WHOLE BLOOD STAT 04/16/2023 9:08 AM CDT documented in this encounter Results * (ABNORMAL) Creatinine, whole blood (04/16/2023 9:08 AM CDT) Creatinine, bld 1.31(H) 0.60 - 1.30 mg/dL BRIELLE JACKSON ([place]) Blood 04/16/2023 9:08 AM CDT 04/16/2023 9:12 AM CDT us Sindhu Thomason [facility] [facility] LAB BLOOD ORDERABLES Final Result BRIELLE JACKSON ([place]) [address] [facility] Department [place] [address] documented in this encounter Visit Diagnoses Not on filedocumented in this encounter Care Teams Marketing Rotation Associate Relationship Specialty Start Date End Date Unknown, Notinfile PCP - General 04/03/23 documented as of this encounter
--- OUTSIDE RECORDS SUMMARY | 2024-09-21 04:25 | XMS_ITS | Encounter Summary ---
Author Organization [facility] Address [address] [place] [address] Phone Care Team Providers Care Closed Circuit Screen Watcher Name Role Phone Cate Patel MD Primary Care Provider [phone] Reason for Referral * Diagnostic Imaging (Routine) - Closed Specialty Diagnoses / Procedures Referred By Yadiel adams Referred To Contact Radiology Diagnoses Pituitary tumor Procedures MRI Brain W WO Contrast Vadim Browning MD PhD [address] [place] [address] Phone: tel: fax: [address] [address] Referral ID Status Reason Start Date Expiration Date Visits Re quested Visits Authorized [id number] Closed 07/20/2020 08/19/2021 1 1 Encounter Details Date Type Department Care Team (Late st Contact Info) Description 07/20/2020 Orders Only [facility] Neurosurgery [address] [facility] Advanced Medicine 6th [place] [address] [place] [address] Vadim Browning MD PhD [address] [place] [address] Pituitary tumor (Primary Dx) Social History Tobacco Use Types [...] on file Legal Sex Female 12:44 AM MEAT STUFFER Gender Identity Not on file Sexual Orientation Not on file Occupation Industry Job Start Date Job End Date retired Not on file Not on file Not on file documented as of this encounter Plan of Treatment Not on file documented as of this encounter Results * MRI Brain W WO Contrast (04/18/2021 9:01 AM CDT) Anatomical Region Laterality Modality Head and Neck N/A Magnetic Resonan ce 04/18/2021 12:5 4 PM CDT Impressions 04/18/2021 12:54 PM CDT Mildly enhancing lesion arising from the left inferior aspect of the sella, extending to the sphenoid sinus, grossly similar to prior exam, which could represent possible pituitary adenoma, with differential considerations including schwannoma or other primary sinonasal lesions. Electronically signed by: Vinay Arora M.D. Narrative 04/18/2021 12:54 PM CDT EXAMINATION: Magnetic resonance imaging (MRI) of the brain and brainstem without and with contrast. HISTORY: Microadenoma. TECHNIQUE: Multiplanar multi-weighted MRI of the brain and brainstem was performed without and with ??intravenous contrast using the pituitary protocol. This included acquisitions showing dynamic contrast enhancement of the sella turcica in the coronal plane and a post-contrast T1-Stealth sequence. Contrast information: 20 mL Dotarem COMPARISON: ??Brain MR 04/04/2020. FINDINGS: Redemonstrated is the T1 isointense mildly enhancing soft tissue lesion arising from the inferior aspect of the left sella. ??The lesion measures 12 x 11 [...] normal. The visualized portions of the mastoids are unremarkable. The orbits appear normal. Normal flow voids are demonstrated in the carotid arteries and basilar artery. Procedure Note Vinay Arora MD PhD - 04/18/2021 EXAMINATION: Magnetic resonance imaging (MRI) of the brain and brainstem without and with contrast. HISTORY: Microadenoma. TECHNIQUE: Multiplanar multi-weighted MRI of the brain and brainstem was performed without and with intravenous contrast using the pituitary protocol. This included acquisitions showing dynamic contrast enhancement of the sella turcica in the coronal plane and a post-contrast T1-Stealth sequence. Contrast information: 20 mL Dotarem COMPARISON: Brain MR 04/04/2020. FINDINGS: Redemonstrated is the T1 isointense mildly enhancing soft tissue lesion arising from the inferior aspect of the left sella. The lesion measures 12 x 11 x 10 mm in craniocaudal, anteroposterior, and transverse dimensions, grossly similar to prior exam, the measured in a similar fashion. The abuts the pituitary gland and to the left frontal sinus, with anterior extension into the sphenoid sinus. The optic chiasm and orbits are normal. [...] normal. The visualized portions of the mastoids are unremarkable. The orbits appear normal. Normal flow voids are demonstrated in the carotid arteries and basilar artery. IMPRESSION: Mildly enhancing lesion arising from the left inferior aspect of the sella, extending to the sphenoid sinus, grossly similar to prior exam, which could represent possible pituitary adenoma, with differential considerations including schwannoma or other primary sinonasal lesions. Electronically signed by: Vinay Arora M.D. Vadim Browning MD PhD IMG MRI PROCEDURES Final Result documented in this encounter Visit Diagnoses Diagnosis Pituitary tumor- Primary Neoplasm of unspecified nature of endocrine glands and other parts of nervous system Pituitary tumor Neoplasm of unspecified nature of endocrine glands and other parts of nervous system documented in this encounter Care Teams Closed Circuit Screen Watcher Relationship Specialty Start Date End Date Cate Patel MD PCP - General Family Practice 04/30/19 04/02/23 documented as of this encounter
--- OUTSIDE RECORDS SUMMARY | 2024-09-21 04:25 | XMS_ITS | Encounter Summary ---
Author Organization [facility] Healthcare Address [address] [place] [address] Care Team Providers Care Eap Counselor Name Role Phone Cate Patel MD Primary Care Provider Reason for Referral * Diagnostic Imaging (Routine) - Closed Specialty Diagnoses / Procedures Referred By Yadiel t Referred To Contact Radiology Diagnoses Pituitary tumor Procedures MRI Brain W WO Contrast Vadim Browning MD PhD [address] [place] [address] Phone: tel: fax: [address] [phone] Referral ID Status Reason Start Date Expiration Date Visits Re quested Visits Authorized [id number] Closed 07/20/2020 08/19/2021 1 1 Reason for Visit * Diagnostic Imaging (Routine) - Closed Specialty Diagnoses / Procedures Referred By Contac t Referred To Contact Radiology Diagnoses Pituitary tumor Procedures MRI Brain W WO Contrast Vadim Browning MD PhD [address] [place] [address] Phone: tel: fax: [address] [phone] Referral ID Status Reason Start Date Expiration Date Visits Re quested Visits Authorized [id number] Closed 07/20/2020 08/19/2021 1 1 Encounter Details Date Type Department Care Team (Latest Contact Info) Description 04/18/2021 7:57 AM CDT - 04/18/2021 11:59 PM CDT Hospital Encounter [facility] Radiology [address] [facility] [place] [address] Vadim Browning MD PhD [address] [place] [address] Pituitary tumor Discharge Disposition: Discharge to home or self care Social History Tobacco Use Types Packs/Day Years [...] on file 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 Gender Identity Not on file Sexual Orientation Not on file Occupation Industry Job Start Date Job End Date retired Not on file Not on file Not on file documented as of this encounter Medications at Time of Discharge aspirin-calcium carbonate 81 mg-300 mg calcium(777 mg) tablet Take 81 mg by mouth daily atorvastatin (LIPITOR) 10 mg tablet TAKE ONE TABLET BY MOUTH ONCE DAILY AT BEDTIME 02/04/2019 calcium carbonate (CALCI-CHEW ORAL) Take by mouth CARTIA XT 240 mg 24 hr capsule Take 1 capsule (240 mg total) by mouth daily 3 04/09/2019 cholecalciferol (VITAMIN D-3) 50,000 unit capsule TAKE 1 CAPSULE BY MOUTH ONCE A WEEK FOR 12 DOSES 0 03/12/2019 citalopram (CeleXA) 20 mg tablet TAKE 1 TABLET BY MOUTH ONCE DAILY 02/04/2019 CONTRAVE 8-90 mg tablet extended release TAKE 1 TABLET BY MOUTH IN THE MORING FOR 1 WEEK. 1 TABLET TWICE DAILY MORNING AND EVENING FOR 2ND WEEK. 2 TABLETS IN THE MORNING AND 1 TABLE 2 03/24/2019 dexAMETHasone (DECADRON) 1 mg tablet take 1 mg at 11pm and go to the lab the next morning at 8am to have your blood drawn. 1 tablet 05/25/2019 dilTIAZem XR (CARTIA XT) 240 mg 24 hr capsule TAKE 1 CAPSULE BY MOUTH ONCE DAILY 04/09/2019 levothyroxine (SYNTHROID, LEVOTHROID) 75 mcg tablet TAKE 1 TABLET BY MOUTH ONCE DAILY 04/09/2019 lisinopril-hydro CHLOROthiazide (PRINZIDE,ZESTOR ETIC) 20-25 mg per tablet TAKE 1 TABLET BY MOUTH ONCE DAILY 04/09/2019 loperamide (IMODIUM A-D) 2 mg tablet Take 1 tablet (2 mg total) by mouth daily as needed melatonin 5 mg capsule Take 5 mg by mouth nightly multivitamin with minerals tablet Take by mouth naltrexone-bupro pion (CONTRAVE) 8-90 mg tablet extended release Initial, 1 tablet orally once daily in the morning for week 1; then 1 tablet twice daily, morning and evening, for week 2; then 2 tablets in the morning and 1 tablet in the evening for week 3 Maintenance (week 4 and thereafter), 2 tablets orally twice daily, morning and evening 09/03/2018 omeprazole (PriLOSEC) 40 mg capsule Take 1 capsule (40 mg total) by mouth daily 09/25/2018 omeprazole (PriLOSEC) 40 mg capsule Take 1 capsule (40 mg total) by mouth daily 3 03/24/2019 spironolactone (ALDACTONE) 25 mg tablet TAKE 1 TABLET BY MOUTH ONCE DAILY 04/09/2019 spironolactone (ALDACTONE) 25 mg tablet Take 1 tablet (25 mg total) by mouth daily 1 04/13/2019 topiramate (TOPAMAX) 25 mg tablet Take 1 tablet (25 mg total) by mouth 2 times daily 03/23/2019 topiramate (TOPAMAX) 25 mg tablet Take 1 tablet (25 mg total) by mouth 2 (two) times a day 1 04/27/2019 triamcinolone (KENALOG) 0.1 % cream Application Site: hands Apply BID to affected area x 2 weeks or until resolved. 09/25/2018 documented as of this encounter Discharge Disposition Disposition Code Departure Means Destination Discharge to home or self care documented in this encounter Plan of Treatment Not on file documented as of this encounter Procedures Procedure Name Priority Date/Time Associated Diagnosis Comments MRI BRAIN W WO CONTRAST Schedule Routine, Read Routine (OP Routine) 04/18/2021 9:01 AM CDT Pituitary tumor documented in this encounter Results * MRI Brain W [...] in this encounter Visit Diagnoses Diagnosis Pituitary tumor Neoplasm of unspecified nature of endocrine glands and other parts of nervous system documented in this encounter Administered Medications Inactive Administered Medications - up to 3 most recent administrations Medication Order MAR Action Action Date Dose Rate Site gadoterate meglumine (DOTAREM) 0.5 mmol/mL injection 20 mL 20 mL, intravenous, Once in imaging, contrast, Starting on Fri04/18/21 at 0830, For 1 dose Contrast Given 04/18/2021 8:30 AM CDT 20 mL documented in this encounter Orders Medications Ordered That Robert ht Not Have Been Administered Count Last Ordered Date First Ordered Date gadoterate meglumine (DOTARE M) 0.5 mmol/mL injection 20 mL 1 04/18/2021 documented in this encounter Care Teams Eap Counselor Relationship Specialty Start Date End Date Cate Patel MD PCP - General Family Practice 04/30/19 04/02/23 documented as of this encounter
--- OUTSIDE RECORDS SUMMARY | 2024-09-21 04:25 | XMS_ITS | Referral Summary ---
Author Organization [facility] Address [address] [place] [address] Care Team Providers Care Wood Cutter Name Role Phone Unknown, Notinfile Primary Care Provider Unavail able Allergies No known active allergies Medications calcium carbonate (CALCI-CHEW ORAL) Take by mouth Active multivitamin with minerals tablet Take by mouth Active aspirin-calcium carbonate 81 mg-300 mg calcium(777 mg) tablet Take 81 mg by mouth daily Active atorvastatin (LIPITOR) 10 mg tablet TAKE ONE TABLET BY MOUTH ONCE DAILY AT BEDTIME 02/05/20 19 Active cholecalciferol (VITAMIN D-3) 50,000 unit capsule Take 1 tablet by mouth every 7 days 03/12/20 19 Active cholecalciferol (VITAMIN D-3) 50,000 unit capsule TAKE 1 CAPSULE BY MOUTH ONCE A WEEK FOR 12 DOSES 0 03/12/20 19 Active citalopram (CeleXA) 20 mg tablet TAKE 1 TABLET BY MOUTH ONCE DAILY 02/05/20 19 Active dilTIAZem XR (CARTIA XT) 240 mg 24 hr capsule TAKE 1 CAPSULE BY MOUTH ONCE DAILY 04/09/20 19 Active CARTIA XT 240 mg 24 hr capsule Take 1 capsule (240 mg total) by mouth daily 3 04/09/20 19 Active levothyroxine (SYNTHROID, LEVOTHROID) 75 mcg tablet TAKE 1 TABLET BY MOUTH ONCE DAILY 04/09/20 19 Active lisinopril-hydroCH LOROthiazide (PRINZIDE,ZESTORET IC) 20-25 mg per tablet TAKE 1 TABLET BY MOUTH ONCE DAILY 04/09/20 19 Active loperamide (IMODIUM A-D) 2 mg tablet Take 1 tablet (2 mg total) by mouth daily as needed Active melatonin 5 mg capsule Take 5 mg by mouth nightly Active naltrexone-bupropi on (CONTRAVE) 8-90 mg tablet extended release Initial, 1 tablet orally once daily in the morning for week 1; then 1 tablet twice daily, morning and evening, for week 2; then 2 tablets in the morning and 1 tablet in the evening for week 3 Maintenance (week 4 and thereafter), 2 tablets orally twice daily, morning and evening 09/03/20 18 Active CONTRAVE 8-90 mg tablet extended release TAKE 1 TABLET BY MOUTH IN THE MORING FOR 1 WEEK. 1 TABLET TWICE DAILY MORNING AND EVENING FOR 2ND WEEK. 2 TABLETS IN THE MORNING AND 1 TABLE 2 03/24/20 19 Active omeprazole (PriLOSEC) 40 mg capsule Take 1 capsule (40 mg total) by mouth daily 09/25/20 18 Active omeprazole (PriLOSEC) 40 mg capsule Take 1 capsule (40 mg total) by mouth daily 3 03/24/20 19 Active spironolactone (ALDACTONE) 25 mg tablet TAKE 1 TABLET BY MOUTH ONCE DAILY 04/09/20 19 Active spironolactone (ALDACTONE) 25 mg tablet Take 1 tablet (25 mg total) by mouth daily 1 04/13/20 19 Active topiramate (TOPAMAX) 25 mg tablet Take 1 tablet (25 mg total) by mouth 2 times daily 03/23/20 19 Active topiramate (TOPAMAX) 25 mg tablet Take 1 tablet (25 mg total) by mouth 2 (two) times a day 1 04/27/20 19 Active triamcinolone (KENALOG) 0.1 % cream Application Site: hands Apply BID to affected area x 2 weeks or until resolved. 09/25/20 18 Active dexAMETHasone (DECADRON) 1 mg tablet take 1 mg at 11pm and go to the lab the next morning at 8am to have your blood drawn. 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 Chronic migraine w/o aura w/ o status migrainosus, not intractable 07/30/2023 Loss of memory 07/30/2023 Iron deficiency 07/05/2019 MARY on CPAP 05/25/2019 Hypertension 05/25/2019 Low bone density 05/25/2019 Primary hypothyroidism 05/25/2019 Anemia 05/25/2019 Mixed hyperlipidemia 05/25/2019 GERD (gastroesophageal reflux disease) 9 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 02/17/2018 Spinal stenosis of lumbar region 02/17/2018 Prediabetes 08/19/2017 Thyroid nodule 07/24/2016 Immunizations Name Administration Dates Next Due H1N1 Inj 11/01/2009 Influenza, Quadrivalent, Spl it, Preservative Free, Intramuscular 09/03/2018,08/19/2017 Influenza, Trivalent, High D ose, Split, Preservative Free, Intramuscular 08/27/2016 Influenza, Trivalent, IM (MDV) 09/18/2015,2013 Influenza, Unspecified 07/06/2021 Pneumococcal Conjugate PCV 13 08/19/2017 Pneumococcal Polysaccharide PPV23 09/03/2018,10/2011 Td, adsorbed 10/06/1989 ZOSTER LIVE 12/04/2012 Social History Tobacco Use Types Packs/Day Years Used Date Smoking Tobacco: Never Smokeless Tobacco: Never Tobacco Cessation:Counseling Given: Not Answered Alcohol Use Standard Drinks/Week Comments Never 0 (1 standard drink = 0.6 oz pur e alcohol) AUDIT-C Answer Date Recorded Frequency of Alcohol Consumption Never 05/25/2019 Average Number of Drinks Not on file 019 Frequency of Binge Drinking Not on file 05/07 Personal Safety Answer Date Recorded Getting School Help Needed Not on file 09/24 Comments Unknown Sex and Gender Information Value Date Recorded Sex Assigned at Not on file 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 Gender Identity Not on file Sexual Orientation Not on file Occupation Industry Job Start Date Job End Date retired Not on file Not on file Not on file Last Filed Vital Signs Vital Sign Reading Time Taken Comments Blood Pressure 103/70 11/05/2023 3:05 PM INTEGRATION SOFTWARE ENGINEER Pulse 79 11/05/2023 3:05 PM INTEGRATION SOFTWARE ENGINEER Temperature - - Respiratory Rate 18 07/30/2023 1:37 PM CDT Oxygen Saturation 97% 11/05/2023 3:05 PM INTEGRATION SOFTWARE ENGINEER Inhaled Oxygen Concentration - - Weight 82.1 kg (181 lb) 11/05/2023 3:05 PM INTEGRATION SOFTWARE ENGINEER Height 157.5 cm (5' 2 ) 11/05/2023 3:05 PM INTEGRATION SOFTWARE ENGINEER Body Mass Index 33.11 11/05/2023 3:05 PM INTEGRATION SOFTWARE ENGINEER Plan of Treatment Not on file Medical Devices Implanted Type Area Personal Property Assessor Device Identifier Shelf Expiration Date Model / Serial / Lot Left Hip Replacement Left: Hip Jesus In Arm Right: Arm Duglas Knee Replacement Bilateral : Knee Insurance MEDICARE [facility] CHOICE O MEDICARE COMMERCIAL [facility] [place] [employer] CHOICE PPO MEDICARE [facility] Care Teams Wood Cutter Relationship Specialty Start Date End Date Unknown, Notinfile PCP - General 04/03/23
--- OUTSIDE RECORDS SUMMARY | 2024-09-21 04:25 | XMS_ITS | Encounter Summary ---
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 Gender Identity Not on file Sexual Orientation Not on file Occupation Industry Job Start Date Job End Date retired Not on file Not on file Not on file documented as of this encounter Miscellaneous Notes * Telephone Encounter - Sunitha Reilly BS - 05/09/2020 10:30 AM CDT ----- Message from Rosalba Eubanks RN sent at 04/17/2020 2:08 PM CDT ----- Regardin yr fup with neurosurgery Per KR pt will need a MRI with Pituitary protocol in 1 yr and appt with Neurosurgery documented in this encounter Plan of Treatment Not on file documented as of this encounter Visit Diagnoses Not on filedocumented in this encounter Care Teams Kennel Supervisor Relationship Specialty Start Date End Date Cate Patel MD PCP - General Family Practice 04/30/19 04/02/23 documented as of this encounter
--- OUTSIDE RECORDS SUMMARY | 2024-09-21 04:25 | XMS_ITS | Encounter Summary ---
Author Organization [facility] Address [address] [place] [address] Phone Care Team Providers Care Signal Worker Helper Name Role Phone Cate Patel MD Primary Care Provider [phone] Encounter Details Date Type Department Care Team (Late st Contact Info) Description 04/17/2022 11:15 AM CDT Office Visit [facility] Neurosurgery [address] [facility] [address] [place] [address] [place] [id number] Sindhu Thomason NP [address] 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 Gender Identity Not on file Sexual Orientation Not on file Occupation Industry Job Start Date Job End Date retired Not on file Not on file Not on file documented as of this encounter Last Filed Vital Signs Vital Sign Reading Time Taken Comments Blood Pressure 126/67 04/17/2022 11:17 AM CDT Pulse 65 04/17/2022 11:17 AM CDT Temperature - - Respiratory Rate - - Oxygen Saturation - - Inhaled Oxygen Concentration - - Weight 88.9 kg (196 lb) 04/17/2022 11:17 AM CDT Height 160 cm (5' 3 ) 04/17/2022 11:17 AM CDT Body Mass Index 34.72 04/17/2022 11:17 AM CDT documented in this encounter Progress Notes * Sindhu Thomason, [place] - 04/17/2022 11:15 AM CDT Images from the original note were not included. RETURN VISIT Subjective HISTORY OF PRESENT ILLNESS Silvia Boss is a 76 y.o. female who initially presented with headaches. During the workup, she was found to have a left-sided sellar lesion. This has been followed with surveillance imaging, no surgical intervention. Her last office visit was in April [address] Browning. She returns for a scheduled follow-up. She is 3 years status post initial MRI. Reports overall she is doing well. She continues to have left-sided headaches. These start at the base of her skull on the left side and radiates up through her head to above her eye. These are described as sharp. She typically has daily mild headaches in this location, but has more severe headaches 4-5 days per month.Denies nausea or vomiting. Denies vision changes. She currently has significant difficulty with ambulation secondary to a right hip issue. She uses a cane for assistance, but is mostly wheelchair bound. PMH She has a past medical history of Arthritis, Brain tumor (benign) (CMS/HCC) (HCC), Dermatitis, Diabetes mellitus type I (HCC), Diarrhea, Dizziness, Easy bruising, Eczema, H/O radioactive iodine thyroid ablation, Head ache, History of blood transfusion, Hypertension, Increased thirst, Lightheadedness, Osteoarthritis, Sinusitis, SOB (shortness of breath), Sweating increase, Thyroid nodule, Type 2 diabetes mellitus (HCC), UTI (urinary tract infection), and Weight gain. Past medical history was reviewed. PSH She has a past surgical history that includes Hysterectomy; Cholecystectomy; Bunionectomy; Correction hammer toe; Eye surgery; Total hip arthroplasty (Left); Humerus fracture surgery (Right); Replacement total knee (Bilateral); and Back surgery. Past surgical history was reviewed. Allergies 04/17/22. List Reconciled and reviewed. She has No Known Allergies. Current Meds 04/17/22. List Reconciled and reviewed. She has a current medication list which includes the following prescription(s): aspirin-calcium carbonate, atorvastatin, calcium carbonate, cartia xt, cholecalciferol, cholecalciferol, citalopram, contrave, dexamethasone, diltiazem xr, levothyroxine, lisinopril-hydrochlorothiazide, loperamide, melatonin, multivitamin with minerals, naltrexone-bupropion, omeprazole, omeprazole, spironolactone, spironolactone, topiramate, topiramate, and triamcinolone. Family Hx Her family history includes Depression in her mother; Diabetes in her brother and mother; Heart attack in her mother; Hypertension in her brother, father, mother, and sister. Personal Hx She reports that she has never smoked. She has never used smokeless tobacco. She reports that she does not use drugs. Patient denies consuming alcoholic drinks. Objective PHYSICAL EXAM Vital Signs BP 126/67 Pulse 65 Ht 160 cm (5' 3 ) Wt 88.9 kg (196 lb) BMI 34.72 kg/m?? Mental Status Patient is awake, alert, oriented x 3. Speech is clear and fluent. Cranial Nerves Pupils are equal and reactive to light. Extraocular movements are intact. Facial sensation intact to light touch. Face symmetric. Hearing normal to rubbing fingers. Palate elevates symmetrically. Head turning and shoulder shrug intact. Tongue protrudes midline. Motor Moves all extremities with equal strength. No drift on [place]. Reflexes Deep tendon reflexes within normal limits. Sensory Sensation intact to light touch on upper and lower extremities. Gait Gait is steady antalgic with cane. I was able to elicit her left-sided headache upon palpation of the left-sided greater occipital nerve. REVIEW OF IMAGING I have personally reviewed the following images: Brain MRI with and without contrast 04/17/22 Narrative & Impression EXAMINATION: Magnetic resonance imaging (MRI) of the brain and brainstem without and with contrast. ?? HISTORY: Follow-up sellar mass. ?? TECHNIQUE: Multiplanar multi-weighted MRI of the brain and brainstem was performed without and with intravenous contrast using the pituitary protocol. This included acquisitions showing dynamic contrast enhancement of the sella turcica in the coronal plane and a post-contrast T1-Stealth sequence. ?? Contrast information: 18 mL Gadoterate Meglumine ?? COMPARISON: Brain MRI 04/18/2022. ?? FINDINGS: ?? There is again a predominantly T1/T2 isointense mildly hyperenhancing mass extending from the left aspect of the sella inferiorly into the upper clivus and laterally into the cavernous sinus. This measures 1.1 cm transverse x 1.5 cm craniocaudal, which is not significantly changed from the prior study. There is stable to minimally increased encasement of the left cavernous carotid artery which is now extends lateral to the lateral border of the cavernous internal carotid artery. The component of the mass which invades the clivus is T2 hyperintense and demonstrates contrast enhancement which appears unchanged from the prior study. The optic chiasm and orbits are normal. ?? The scalp and calvarium are normal. The superior sagittal sinus demonstrates normal venous flow. The corpus callosum is normal in shape and signal intensity. The posterior fossa is unremarkable. The brainstem and craniocervical junction are unremarkable. ?? The ventricles are normal in size and position without evidence of hydrocephalus. ?? The paranasal sinuses are normal. The visualized portions of the mastoids are unremarkable. The orbits appear normal. Normal flow voids are demonstrated in the carotid arteries and basilar artery. ?? IMPRESSION: ?? 1. T1/T2 isointense mildly enhancing mass involving the left aspect of the sella extending into the upper clivus and left cavernous sinus with stable to minimally increased encasement of the left cavernous carotid artery when compared with prior study (Knosp grade III). 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 ?? Dictated by: Patrice Coe M.D. ?? The radiology attending physician has personally reviewed this study, and had reviewed and/or edited this written report and agrees with it. ?? Electronically signed by: Vinay Arora M.D. Assessment/Plan PLAN This is a patient with a left-sided sellar tumor that has been largely stable for 3 years. My recommendation for this is continued observation with a repeat brain MRI with and without contrast in 1 year. In regards to the patient's left-sided headache, it is very consistent with a left-sided greater occipital neuralgia. I have made a referral to Pain Management for a left-sided greater occipital nerve block injection. 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
--- OUTSIDE RECORDS SUMMARY | 2024-09-21 04:25 | XMS_ITS | Encounter Summary ---
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 Patient was scheduled for 04/17/23 Telehealth appt with Talia Macias NP to review MRI results. Since patient lives in [place], her 04/17/23 appt with Talia needed to be canceled and rescheduled with a provider licensed for Telehealth appts in [place]. Patient is agreeable to 04/23/23 Telehealth appt with Sarah Jang NP at 9:00 am (per Nicole Johnson's 12/16/22 email). Patient said she felt confused about the details regarding the MRI appt at [facility].I offered to print reminder letters for both upcoming appts and mail them to her verified home address. She is appreciative of my offer and is aware to be watching for them to arrive soon in the mail. 04/17/23 appt with Talia Macias has been canceled. documented in this encounter Plan of Treatment Not on file documented as of this encounter Visit Diagnoses Not on filedocumented in this encounter Care Teams Bite Block Maker Relationship Specialty Start Date End Date Cate Patel MD PCP - General Family Practice 04/30/19 04/02/23 documented as of this encounter
--- OUTSIDE RECORDS SUMMARY | 2024-09-21 04:25 | XMS_ITS | Encounter Summary ---
Author Organization [facility] of [facility] Address [address] [place] [address] Phone Care Team Providers Care Assistant Professor Of Surgery Name Role Phone Cate Patel MD Primary Care Provider [phone] Encounter Details Date Type Department Care Team (Late st Contact Info) Description 12/31/2021 Telephone [facility] Neurosurgery [address] [facility] Advanced Medicine 6th [place] [address] [place] [address] Sindhu Thomason, [place] [address] [facility] [address] [place] [address] Social History Tobacco Use Types Packs/Day Years [...] on file Legal Sex Female 12:44 AM RN PATIENT SERVICES Gender Identity Not on file Sexual Orientation Not on file Occupation Industry Job Start Date Job End Date retired Not on file Not on file Not on file documented as of this encounter Miscellaneous Notes * Telephone Encounter - Michaela Webb MA - 12/31/2021 2:43 PM CDT Spoke with pt regarding appointment change 04/[address] Browning to [place] Thomason. She voiced understanding and approved of change. documented in this encounter Plan of Treatment Not on file documented as of this encounter Visit Diagnoses Not on filedocumented in this encounter Care Teams Assistant Professor Of Surgery Relationship Specialty Start Date End Date Cate Patel MD PCP - General Family Practice 04/30/19 04/02/23 documented as of this encounter
--- OUTSIDE RECORDS SUMMARY | 2024-09-21 04:25 | XMS_ITS | Encounter Summary ---
Author Organization [facility] Address [address] [place] [address] Phone Care Team Providers Care Obstetrics Gynecology Physician Name Role Phone Unknown, Notinfcamilo Primary Care Provider Unavail able Encounter Details Date Type Department Care Team (Late st Contact Info) Description 04/24/2023 Orders Only [facility] Neurosurgery [address] [facility] [address] [place] [address] Sarah Jang, [place]ST[place] [address] [place] [address] 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) Social History Tobacco Use [...] on file Legal Sex Female 12:44 AM 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
--- OUTSIDE RECORDS SUMMARY | 2024-09-21 04:25 | XMS_ITS | Continuity of Care Document ---
Author Organization [facility] Address [address], [place] [address] Phone Care Team Providers Care Tape Folding Machine Operator Name Role Phone Nick Wright OD Unavailable Unavailable Allergies, Adverse Reactions, Alerts Substance Reaction Status Criticality No Known Allergies Active No Inform ation Procedures Procedure Date New Patient E/M Low MDM Advance Directives Directive Yes / No Effective Date File Name No Information Encounters Encounter Description Practice Location Reason(s) For Visit Diagnoses Date Provider Providers Copied on Encounter New Patient E/M Low MDM [facility], [address] [place] [address], [id number], [place] tel:[phone] [place] [address] Possible eye infection (chief complaint) Unspecified blepharitis of left upper eyelid Adriana Romero. [address] [place] [address], [id number], . tel:[phone] Referring Provider: Nick Wright, [address] [place] [address], [id number]. tel:[phone] Family History Family Member Type Diagnosis Age At Onset No Information Payers Payer name Insurance type Covered constitution party ID Authoriza tion(s) Medicare [place] MB [id number] [facility] [place] Aetna Supp CI [id number] Social History Type Description Quantity Date Captured Comments Alcohol Use Details Unknown Caffeine Use Details Unknown Tobacco Use Status Current non-smoker Smoking Status Never smoker Non-Smoking Tobacco Use Details : No Details Available : No Details Available Sex Female Chief Complaint And Reason For Visit From encounter dated '04/22/2022 11:10'. Possible eye infection (chief complaint) Reason For Referral Reason For Referral No Information History Of Present Illness Encounter Date Complaint History Of Prese nt Illness Possible eye infection The 76 ye ar old female presents for evaluation of Possible eye infection in the right eye and left eye. After eye exam in January noticed infection in OU and was given Tobramycin/Dexamethasone 3 times daily sometimes more. Gets crust around OU and vision occasionally gets blurry. Has dry eyes and causes itchiness. Feels like OU got the infection from getting dilated. Functional Status Date Functional Assessmen t No Information Instructions Date Instruction Additional Infor arti Impression/Plan - St art lid scrubs BID OU, omega 3, WCs TID OU. RTC 6 weeks for F/U or sooner with changes. Related to Unspecified blepharitis of left upper eyelid Assessments Type Assessment Date assessment Unspecified blepharitis of left upper eyelid impression Unspecified blepharitis of left upper eyelid: H01.004 Patient Care Teams Name Effective Dates (start - stop) Status Members No Information
--- OUTSIDE RECORDS SUMMARY | 2024-09-21 04:25 | XMS_ITS | Encounter Summary ---
Author Organization [facility] Address [address] [place] [address] Phone Care Team Providers Care Ropewalk Rope Maker Name Role Phone Unknown, Notinfile Primary Care Provider Unavail able Encounter Details Date Type Department Care Team (Late st Contact Info) Description 04/23/2023 Telephone [facility] [address] [facility] [address] [place] [address] Macie Christine Social History Tobacco [...] on file Legal Sex Female 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 Patient is agreeable to the time change, and Sarah is aware patient will be expecting her call later this morning. documented in this encounter Plan of Treatment Not on file documented as of this encounter Visit Diagnoses Not on filedocumented in this encounter Care Teams Ropewalk Rope Maker Relationship Specialty Start Date End Date Unknown, Notinfile PCP - General 04/03/23 documented as of this encounter
--- OUTSIDE RECORDS SUMMARY | 2024-09-21 04:25 | XMS_ITS | Encounter Summary ---
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
--- OUTSIDE RECORDS SUMMARY | 2024-09-21 04:25 | XMS_ITS | Encounter Summary ---
Author Organization [facility] of [facility] Address [address] [place] [address] Phone Care Team Providers Care Recreation Programmer Name Role Phone Cate Patel MD Primary Care Provider + [phone] Encounter Details Date Type Department Care Team (Late st Contact Info) Description 07/19/2020 Telephone [facility] Scheduling [address] [place] [address] Sunitha Reilly BS Social History [...] on file Legal Sex Female 12:44 AM INSULATION INSTALLER Gender Identity Not on file Sexual Orientation Not on file Occupation Industry Job Start Date Job End Date retired Not on file Not on file Not on file documented as of this encounter Miscellaneous Notes * Telephone Encounter - Sonia Hickey RMA - 07/20/2020 1:33 PM CDT Called patient regarding her one year follow up with GD Patient mailbox is full, appointment details mailed to the patient home * Telephone Encounter - Sunitha Reilly BS - 07/19/2020 6:57 AM CDT ----- Message from Rosalba Eubanks RN sent at 04/17/2020 2:08 PM CDT ----- Regardin yr fup with neurosurgery Per KR pt will need a MRI with Pituitary protocol in 1 yr and appt with Neurosurgery documented in this encounter Plan of Treatment Not on file documented as of this encounter Visit Diagnoses Not on filedocumented in this encounter Care Teams Recreation Programmer Relationship Specialty Start Date End Date Cate Patel MD PCP - General Family Practice 04/30/19 04/02/23 documented as of this encounter
--- OUTSIDE RECORDS SUMMARY | 2024-09-21 04:25 | XMS_ITS | Encounter Summary ---
Author Organization [facility] Healthcare Address [address] [place] [address] Care Team Providers Care Technical Testing Engineer Name Role Phone Unknown, Notinfile Primary Care Provider Unavail able Reason for Visit * Reason Comments Headache Chronic headaches, 3 month f/u Encounter Details Date Type Department Care Team (Late st Contact Info) Description 11/05/2023 3:00 PM AUDIO VISUAL SPECIALIST Office Visit [facility] [address] [facility] [address] [place] [address] Guerrero Nicholson MD [address] [place] [address] [address] [place] [address] Chronic migraine w/o aura w/o status migrainosus, not intractable (Primary Dx); Loss of memory Social History Tobacco Use Types Packs/Day Years [...] on file Legal Sex Female 12:44 AM AUDIO VISUAL SPECIALIST Gender Identity Not on file Sexual Orientation Not on file Occupation Industry Job Start Date Job End Date retired Not on file Not on file Not on file documented as of this encounter Last Filed Vital Signs Vital Sign Reading Time Taken Comments Blood Pressure 103/70 11/05/2023 3:05 PM AUDIO VISUAL SPECIALIST Pulse 79 11/05/2023 3:05 PM AUDIO VISUAL SPECIALIST Temperature - - Respiratory Rate - - Oxygen Saturation 97% 11/05/2023 3:05 PM AUDIO VISUAL SPECIALIST Inhaled Oxygen Concentration - - Weight 82.1 kg (181 lb) 11/05/2023 3:05 PM AUDIO VISUAL SPECIALIST Height 157.5 cm (5' 2 ) 11/05/2023 3:05 PM AUDIO VISUAL SPECIALIST Body Mass Index 33.11 11/05/2023 3:05 PM AUDIO VISUAL SPECIALIST documented in this encounter Progress Notes * Guerrero Nicholson MD - 11/05/2023 3:00 PM CST Subjective/Objective Patient ID: Silvia Boss is a 78 y.o. female. Chief Complaint I am seeing this 78 y.o. female in consultation requested by Dr. Guerrero Nicholson, * for abnormal MRI of brain. HPI Headache: Since last visit, she has been having headache about twice a week. Each one lasted for about one hour with tylenol. It helped. They are not bad. She stopped Topamax since last visit because of memoryloss and has been on Amitriptyline 25 or 50 mg qhs. She tolerated it well. Memory loss; The history is from self. The memory has been going on for about one year. Over the time, the memory is getting slightly better since she was taken off Topamax at last visit.She forgot if she turned off stove, forgot appointment, told the same story multiple times. She hasno problem to do daily routine. She is living alone. She pay bill by herself. She had 12 years of education. No family history of dementia in early age. Past Medical History: Diagnosis Date Arthritis Brain tumor (benign) (HCC) Dermatitis Diabetes mellitus type I (HCC) Diarrhea Dizziness when bend over Easy bruising Eczema H/O radioactive iodine thyroid ablation Head ache sometimes pounding History of blood transfusion Hypertension Increased thirst Lightheadedness when bend over Osteoarthritis Sinusitis SOB (shortness of breath) Sweating increase Thyroid nodule Type 2 diabetes mellitus (HCC) UTI (urinary tract infection) Weight gain No Known Allergies Current Outpatient Medications Medication Sig Dispense Refill amitriptyline (ELAVIL) 25 mg tablet Take one tablet po qhs for one week, then two tablets po qhs 60tablet 3 aspirin-calcium carbonate 81 mg-300 mg calcium(777 mg) tablet Take 81 mg by mouth daily atorvastatin (LIPITOR) 10 mg tablet TAKE ONE TABLET BY MOUTH ONCE DAILY AT BEDTIME calcium carbonate (CALCI-CHEW ORAL) Take by mouth CARTIA XT 240 mg 24 hr capsule Take 1 capsule (240 mg total) by mouth daily 3 cholecalciferol (VITAMIN D-3) 50,000 unit capsule TAKE 1 CAPSULE BY MOUTH ONCE A WEEK FOR 12 DOSES 0 citalopram (CeleXA) 20 mg tablet TAKE 1 TABLET BY MOUTH ONCE DAILY CONTRAVE 8-90 mg tablet extended release TAKE 1 TABLET BY MOUTH IN THE MORING FOR 1 WEEK. 1 TABLET TWICE DAILY MORNING AND EVENING FOR 2ND WEEK. 2 TABLETS IN THE MORNING AND 1 TABLE 2 dexAMETHasone (DECADRON) 1 mg tablet take 1 mg at 11pm and go to the lab the next morning at 8am tohave your blood drawn. 1 tablet 0 dilTIAZem XR (CARTIA XT) 240 mg 24 hr capsule TAKE 1 CAPSULE BY MOUTH ONCE DAILY levothyroxine (SYNTHROID, LEVOTHROID) 75 mcg tablet TAKE 1 TABLET BY MOUTH ONCE DAILY lisinopril-hydroCHLOROthiazide (PRINZIDE,ZESTORETIC) 20-25 mg per tablet TAKE 1 TABLET BY MOUTH ONCE DAILY loperamide (IMODIUM A-D) 2 mg tablet Take 1 tablet (2 mg total) by mouth daily as needed multivitamin with minerals tablet Take by mouth naltrexone-bupropion (CONTRAVE) 8-90 mg tablet extended release Initial, 1 tablet orally once dailyin the morning for week 1; then 1 tablet twice daily, morning and evening, for week 2; then 2 tablets in the morning and 1 tablet in the evening for week 3 Maintenance (week 4 and thereafter), 2 tablets orally twice daily, morning and evening omeprazole (PriLOSEC) 40 mg capsule Take 1 capsule (40 mg total) by mouth daily omeprazole (PriLOSEC) 40 mg capsule Take 1 capsule (40 mg total) by mouth daily 3 spironolactone (ALDACTONE) 25 mg tablet TAKE 1 TABLET BY MOUTH ONCE DAILY spironolactone (ALDACTONE) 25 mg tablet Take 1 tablet (25 mg total) by mouth daily 1 topiramate (TOPAMAX) 25 mg tablet Take 1 tablet (25 mg total) by mouth 2 times daily topiramate (TOPAMAX) 25 mg tablet Take 1 tablet (25 mg total) by mouth 2 (two) times a day 1 triamcinolone (KENALOG) 0.1 % cream Application Site: hands Apply BID to affected area x 2 weeks or until resolved. cholecalciferol (VITAMIN D-3) 50,000 unit capsule Take 1 tablet by mouth every 7 days melatonin 5 mg capsule Take 5 mg by mouth nightly (Patient not taking: Reported on 07/30/2023) No current facility-administered medications for this visit. has a current medication list which includes the following prescription(s): amitriptyline, aspirin-calcium carbonate, atorvastatin, calcium carbonate, cartia xt, cholecalciferol, citalopram, contrave, dexamethasone, diltiazem xr, levothyroxine, lisinopril-hydrochlorothiazide, loperamide, multivitamin with minerals, naltrexone-bupropion, omeprazole, omeprazole, spironolactone, spironolactone, topiramate, topiramate, triamcinolone, cholecalciferol, and melatonin. Family History Problem Relation Age of Onset Diabetes Mother Depression Mother Heart attack Mother Hypertension Mother Hypertension Father Hypertension Sister Hypertension Brother Diabetes Brother Social History Tobacco Use Smoking status: Never Smokeless tobacco: Never Substance and Sexual Activity Drug use: Never Sexual activity: None Alcohol Use: Not At Risk (05/25/2019) AUDIT-C Frequency of Alcohol Consumption: Never Average Number of Drinks: Not on file Frequency of Binge Drinking: Not on file BP 103/70 (BP Location: Left arm, Patient Position: Sitting) Pulse 79 Ht 157.5 cm (5' 2 ) Wt 82.1 kg (181 lb) SpO2 97% BMI 33.11 kg/m?? Physical examination: Mental status: alert, speech fluent, comprehension intact, Follow command appropriately. Patient is fully oriented. Cranial nerve: RACIEL, corneal reflex present. EOMI. VFF by confrontation method. Face symmetrical. Motor: bulk normal, tone normal, pronator drift negative. Strength 5/5. No abnormal movement. Sensation: LT Normal and symmetrical. Gait: came in wheelchair. Assessment/Plan I am seeing this 78 y.o. female who is here for evaluation of memory loss and follow-up for headache. Abnormal MRI of brain: Stable lobulated lesion along the floor of left sella turcica extending intoleft clivus. No new or acute abnormality. Has been following Neurosurgery at [facility]. Headache: Chronic. On Topamax for long time. Memory problem: Patient has obstructive sleep apnea, but was not using CPAP for quite some time. She is also using Topamax for headache prevention. Topamax was stopped since 07/30/2023 visit because of memory loss. 11/05/2023 Reyes cognitive assessment (visuospatial/executive -2, delayed recall -2). Functional activities questionnaire 03/04. Mild cognitive impairment is probably most likely. Patient also has obstructive sleep apnea. She is noncompliant with using CPAP. Diagnoses and all orders for this visit: Chronic migraine without aura without status migrainosus, not intractable - amitriptyline (ELAVIL) 25 mg tablet; Take two tablets po qhs Loss of memory - Encourage patient to use CPAP - will monitor progression of memory loss - My total encounter time on 11/05/2019 was more than 40 minutes which was spent in the activities documented in the note. This includes time spent prior to the visit and after the visit in direct care of the patient. This time does not include time spent in any separately reportable services. Past investigations: 04/16/2023 MRI of the brain with /without: Stable appearance of lobulated lesion along the floor of the left sella turcica extending into the left clavus. No new or acute abnormality. I reviewed image. Return in about 1 year (around 11/05/2024). O VISUAL SPECIALIST documented in this encounter Plan of Treatment Not on file documented as of this encounter Visit Diagnoses Diagnosis Chronic migraine w/o aura w/o status migrainosus, not intractable- Primary Loss of memory Memory loss documented in this encounter Care Teams Technical Testing Engineer Relationship Specialty Start Date End Date Unknown, Notinfile PCP - General 04/03/23 documented as of this encounter
--- OUTSIDE RECORDS SUMMARY | 2024-09-21 04:25 | XMS_ITS | Encounter Summary ---
Author Organization [facility] Address [address] [place] [address] Phone Care Team Providers Care Towel Distributor Name Role Phone Cate Patel MD Primary Care Provider + [phone] Encounter Details Date Type Department Care Team (Late st Contact Info) Description 07/26/2021 Telephone [facility] Neurosurgery [address] [facility] Advanced Medicine 6th [place] [address] [place] [address] Vadim Browning MD PhD [address] [place] [address] Social History Tobacco Use Types Packs/Day Years [...] on file Legal Sex Female 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 * Telephone Encounter - Lory Guaman - 07/27/2021 9:40 AM CDT I attempted to call the facility to relay the information to Leona but the office is closed on Fridays. Try calling back on Friday. * Telephone Encounter - Christo Moore NP - 07/26/2021 2:15 PM CDT Ok for injection E * Telephone Encounter - Lory Guaman - 07/26/2021 2:07 PM CDT Leona, with [facility] in [place] calling to confirm that Dr. Browning would be ok with the patient getting a C7-T1 steroid injection? Should I email Dr. Browning about this patient or can you advise? documented in this encounter Plan of Treatment Not on file documented as of this encounter Visit Diagnoses Not on filedocumented in this encounter Care Teams Towel Distributor Relationship Specialty Start Date End Date Cate Patel MD PCP - General Family Practice 04/30/19 04/02/23 documented as of this encounter
--- OUTSIDE RECORDS SUMMARY | 2024-09-21 04:25 | XMS_ITS | Encounter Summary ---
Author Organization [facility] Address [address] [place] [address] Phone Care Team Providers Care Disability Aide Name Role Phone Cate Patel MD Primary Care Provider + [phone] Reason for Visit * Reason Onset Date Comments Test Results 05/15/2021 notified pt of daisy moniquemarcial result note Encounter Details Date Type Department Care Team (Late st Contact Info) Description 05/15/2021 Telephone [facility] Endocrinology Metabolism and Lipid [address] [facility] Advanced Medicine 13th [place] [address] [place] [address] Fernanda Gaviria RN Test Results (notified pt of provider result note) Social History Tobacco Use Types Packs/Day Years [...] on file Legal Sex Female 12:44 AM CHRONIC CARE NURSE Gender Identity Not on file Sexual Orientation Not on file Occupation Industry Job Start Date Job End Date retired Not on file Not on file Not on file documented as of this encounter Miscellaneous Notes * Telephone Encounter - Fernanda Gaviria RN - 05/15/2021 10:50 AM CDT Notified patient of the following result note. Patient verbalized understanding. ----- Message from Sarah Borges MD sent at 05/14/2021 10:23 AM CDT ----- Please let patient know her cortisol level came back normal. Thanks JS 05/07/21: am cortisol 9 documented in this encounter Plan of Treatment Not on file documented as of this encounter Visit Diagnoses Not on filedocumented in this encounter Care Teams Disability Aide Relationship Specialty Start Date End Date Cate Patel MD PCP - General Family Practice 04/30/19 04/02/23 documented as of this encounter
--- OUTSIDE RECORDS SUMMARY | 2024-09-21 04:25 | XMS_ITS | Encounter Summary ---
Author Organization [facility] Address [address] [place] [address] Phone Care Team Providers Care Art Studio Teacher Name Role Phone Unknown, Notinfile Primary Care Provider Unavail able Encounter Details Date Type Department Care Team (Late st Contact Info) Description 04/23/2023 Telephone [facility] Neurosurgery 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 * Telephone Encounter - William Tabares CMA - 04/29/2023 4:22 PM CDT Spoke with patient regarding 1yr follow up MRI at [facility] with a separate day for follow up telehealth with CHESTER Jang. Pt expressed understanding and thanks. Per pt's request, appointment reminders mailed. * Telephone Encounter - Sarah Jang NP - 04/24/2023 10:[address] Borges does not know any endo in [place], referral placed to [facility] medical group in [place] hoping they will feel comfortable to follow her for her lesion. * Telephone Encounter - Sree Gates - 04/23/2023 1:21 PM CDT Attempted to call [facility] for the MRI scheduling and was unable to get through due to high call volumes. Will attempt to contact the facility again when a second attempt is made to try schedule the pt in for the requested appointment with Sarah Jang * Telephone Encounter - Sree Gates - 04/23/2023 1:05 PM CDT 1st attempt - [facility] and our contact number for the pt to call back. Please see scheduling plan sent by Sarah Jang on the required scheduling that has been requested by her. Thank you * Telephone Encounter - Sarah Jang NP - 04/23/2023 11:31 AM CDT Please schedule the pt for MRI brain WWO, pituitary protocol at [facility] in 1 year and telehealth with me the day after. Thanks! documented in this encounter Plan of Treatment Not on file documented as of this encounter Visit Diagnoses Not on filedocumented in this encounter Care Teams Art Studio Teacher Relationship Specialty Start Date End Date Unknown, Notinfile PCP - General 04/03/23 documented as of this encounter
--- OUTSIDE RECORDS SUMMARY | 2024-09-21 04:25 | XMS_ITS | Encounter Summary ---
Author Organization 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 1y Telemed f/u with CHESTER Grant scheduled for 04/17/23 at 10:15 am. Called pt, pt is aware and agrees to appts. * Telephone Encounter - Sindhu Thomason NP - 04/17/2022 11:36 AM CDT Patient needs a brain MRI with and without contrast at [facility] in 1 year. Telemedicine with me after. documented in this encounter Plan of Treatment Not on file documented as of this encounter Visit Diagnoses Not on filedocumented in this encounter Care Teams Parachute Officer Relationship Specialty Start Date End Date Cate Patel MD PCP - General Family Practice 04/30/19 04/02/23 documented as of this encounter
--- OUTSIDE RECORDS SUMMARY | 2024-09-21 04:25 | XMS_ITS | Encounter Summary ---
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 [facility] [address] [place] [address] Phone: tel: fax: Guerrero Nicholson MD [address] [place] [address] [place] [address] Phone: tel: fax: Referral ID Status Reason Start Date Expiration Date V isits Requested Visits Authorized [id number] Closed Specialty Services Required 04/23/2023 05/22/2024 1 1 Encounter Details Date Type Department Care Team (Late st Contact Info) Description 07/30/2023 2:00 PM CDT Office Visit [facility] [address] [facility] [address] [place] [address] Guerrero Nicholson MD [address] [place] [address] [place] [address] Loss of memory (Primary Dx); 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); Chronic nonintractable headache, unspecified headache type Social History Tobacco Use Types Packs/Day Years [...] on file 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 Gender Identity Not on file Sexual Orientation Not on file Occupation Industry Job Start Date Job End Date retired Not on file Not on file Not on file documented as of this encounter Last Filed Vital Signs Vital Sign Reading Time Taken Comments Blood Pressure 119/75 07/30/2023 1:37 PM CDT Pulse 77 07/30/2023 1:37 PM CDT Temperature - - Respiratory Rate 18 07/30/2023 1:37 PM CDT Oxygen Saturation 97% 07/30/2023 1:37 PM CDT Inhaled Oxygen Concentration - - Weight 79.8 kg (176 lb) 07/30/2023 1:37 PM CDT Height 160 cm (5' 2.99 ) 07/30/2023 1:37 PM CDT Body Mass Index 31.18 07/30/2023 1:37 PM CDT documented in this encounter Ordered Prescriptions Prescription Sig Dispense Quantity Refills Last Filled Start Date End Date amitriptyline (ELAVIL) 25 mg tabletIndications:Ch ronic nonintractable headache, unspecified headache type Take one tablet po qhs for one week, then two tablets po qhs 60 tablet 3 07/30/2023 documented in this encounter Progress Notes * Guerrero Nicholson MD - 07/30/2023 2:00 PM CDT Subjective/Objective Patient ID: Silvia Boss is a 78 y.o. female. Chief Complaint I am seeing this 78 y.o. female in consultation requested by Dr. Sarah Jang, HAND STONER for abnormal MRI of brain. HPI She was diagnosed with tumor over sellar region about 4 years ago. She was seen by Neurosurgery at [place]. They told her that no surgery is needed since it has been stable. No significant blurring vision. She has been having headache for 1-2 years. Over the time, the headache has been getting worse. has been having mild headache daily and bad headache once a month. The headache affected top of head. described the headache as pressure pain 6/10 in severity Each headache lasted for hours or whole day. It was associated with no aura, but nausea, not photophobi The headache was preceded by no aura. She tried Tylenol, Ibuprofen. They helped some. She has been taking Topamax 50 mg bid for long time. No history of asthma, chest pain or kidney stone. She has been having memory problem. Past Medical History: Diagnosis Date Arthritis Brain [...] Current Outpatient Medications Medication Sig Dispense Refill aspirin-calcium carbonate 81 mg-300 mg calcium(777 mg) [...] TAKE 1 TABLET BY MOUTH IN THE [facility] FOR 1 WEEK. 1 TABLET TWICE DAILY [...] area x 2 weeks or until resolved. amitriptyline (ELAVIL) 25 mg tablet Take one tablet po qhs for one week, then two tablets po qhs 60tablet 3 cholecalciferol (VITAMIN D-3) 50,000 unit capsule Take [...] omeprazole, omeprazole, spironolactone, spironolactone, topiramate, topiramate, triamcinolone, amitriptyline, cholecalciferol, and melatonin. Family History Problem Relation [...] of Binge Drinking: Not on file BP 119/75 (BP Location: Left arm, Patient Position: Sitting) Pulse 77 Resp 18 Ht 160 cm (5' 2.99 ) Wt 79.8 kg (176 lb) SpO2 97% BMI 31.18 kg/m?? Physical examination: Mental status: alert, speech [...] y.o. female in consultation requested by Dr. Sarah Jang, HAND STONER for abnormal MRI of brain. She also complains of headache. Abnormal MRI of brain: Stable lobulated lesion along the floor of left sella turcica extending intoleft clivus. No new or acute abnormality. Headache: Chronic. On Topamax for long time. Memory problem: Patient has obstructive sleep apnea, but was not using CPAP for quite some time. She is also using Topamax for headache prevention. 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 Observe - Continue to follow up with neurosurgery at [place] Chronic nonintractable headache, unspecified headache type - Reduce Topamax to 50 mg daily for 1 week, then stop because of memory problem - amitriptyline (ELAVIL) 25 mg tablet; Take one tablet po qhs for one week, then two tablets po qhs Loss of memory - Reduce Topamax to 50 mg daily for one week, then stop - Encourage patient to use CPAP - Will reevaluate if not better with above measure Review of investigations: 04/16/2023 MRI of the brain with /without: Stable appearance of lobulated lesion along the floor of the left sella turcica extending into the left clavus. No new or acute abnormality. I reviewed image. Return in about 3 months (around 10/30/2023). 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
--- OUTSIDE RECORDS SUMMARY | 2024-09-21 04:25 | XMS_ITS | Encounter Summary ---
Author Organization [facility] Address [address] [place] [address] Care Team Providers Care Medical Insurance Coder Name Role Phone Cate Patel MD Primary Care Provider Reason for Referral * MRI/CAT/PET Scan (Routine) - Closed Specialty Diagnoses / Procedures Referred By Rickeyac t Referred To Contact Radiology Diagnoses Pituitary tumor Procedures MRI Brain W WO Contrast Vadim Browning MD PhD [address] [place] [address] Phone: tel: fax: [address] [address] Referral ID Status Reason Start Date Expiration Date Visits Re quested Visits Authorized [id number] Closed 04/19/2021 05/19/2022 1 1 Reason for Visit * MRI/CAT/PET Scan (Routine) - Closed Specialty Diagnoses / Procedures Referred By Contac t Referred To Contact Radiology Diagnoses Pituitary tumor Procedures MRI Brain W WO Contrast Vadim Browning MD PhD [address] [place] [address] Phone: tel: fax: [address] [phone] Referral ID Status Reason Start Date Expiration Date Visits Re quested Visits Authorized [id number] Closed 04/19/2021 05/19/2022 1 1 Encounter Details Date Type Department Care Team (Latest Contact Info) Description 04/17/2022 9:12 AM CDT - 04/17/2022 11:59 PM CDT Hospital Encounter [facility] [address] [place] [address] Vadim Browning MD PhD [address] [place] [address] Pituitary tumor Discharge Disposition: Discharge to home [...] on file 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 1 TABLET TWICE DAILY [...] CONTRAST Schedule Routine, Read Routine (OP Routine) 04/17/2022 10:32 AM CDT Pituitary tumor documented in this encounter Results * MRI Brain W WO Contrast (04/17/2022 10:32 AM CDT) Anatomical Region Laterality Modality Head and Neck N/A Magnetic Resonan ce 04/17/2022 12:2 3 PM CDT Impressions 04/17/2022 5:57 PM CDT 1. T1/T2 isointense mildly enhancing mass involving the left aspect of the sella extending into the upper clivus and left cavernous sinus with stable to minimally increased encasement of the left cavernous carotid artery when compared with prior study (Knosp grade III). 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 Dictated by: Patrice Coe M.D. The radiology attending physician has personally reviewed this study, and had reviewed and/or edited this written report and agrees with it. Electronically signed by: Vinay Arora M.D. Narrative 04/17/2022 5:57 PM CDT EXAMINATION: Magnetic resonance imaging (MRI) of the brain and brainstem without and with contrast. HISTORY: Follow-up sellar mass. TECHNIQUE: Multiplanar multi-weighted MRI of the brain and brainstem was performed without and with ??intravenous contrast using the pituitary protocol. This included acquisitions showing dynamic contrast enhancement of the sella turcica in the coronal plane and a post-contrast T1-Stealth sequence. Contrast information: 18 mL Gadoterate Meglumine COMPARISON: ??Brain MRI 04/18/2022. FINDINGS: There is again a predominantly T1/T2 isointense mildly hyperenhancing mass extending from the left aspect of the sella inferiorly into the upper clivus and laterally into the cavernous sinus. This measures 1.1 cm transverse x 1.5 cm craniocaudal, which is not significantly changed from the prior study. ??There is stable to minimally increased encasement of [...] The brainstem and craniocervical junction are unremarkable. The ventricles are normal in size and position without evidence of hydrocephalus. The paranasal sinuses are normal. The visualized portions of the mastoids are unremarkable. The orbits appear normal. Normal flow voids are demonstrated in the carotid arteries and basilar artery. Procedure Note Vinay Arora MD PhD - 04/17/2022 EXAMINATION: Magnetic resonance imaging (MRI) of the brain and brainstem without and with contrast. HISTORY: Follow-up sellar mass. TECHNIQUE: Multiplanar multi-weighted MRI of the brain and brainstem was performed without and with intravenous contrast using the pituitary protocol. This included acquisitions showing dynamic contrast enhancement of the sella turcica in the coronal plane and a post-contrast T1-Stealth sequence. Contrast information: 18 mL Gadoterate Meglumine COMPARISON: Brain MRI 04/18/2022. FINDINGS: There is again a predominantly T1/T2 isointense [...] The brainstem and craniocervical junction are unremarkable. The ventricles are normal in size and position without evidence of hydrocephalus. The paranasal sinuses are normal. The visualized portions of the mastoids are unremarkable. The orbits appear normal. Normal flow voids are demonstrated in the carotid arteries and basilar artery. IMPRESSION: 1. T1/T2 isointense mildly enhancing mass involving the left aspect of the sella extending into the upper clivus and left cavernous sinus with stable to minimally increased encasement of the left cavernous carotid artery when compared with prior study (Knosp grade III). 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 Dictated by: Patrice Coe M.D. The radiology attending physician has personally reviewed this study, and had reviewed and/or edited this written report and agrees with it. Electronically signed by: Vinay Arora M.D. Result [facility] Vadim Browning MD PhD IMG MRI PROCEDURES Final Result documented in this encounter Visit Diagnoses Diagnosis Pituitary tumor Neoplasm of unspecified nature of endocrine glands and other parts of nervous system documented in this encounter Administered Medications Inactive Administered Medications - up to 3 most recent administrations Medication Order MAR Action Action Date Dose Rate Site gadoterate meglumine 0.5 mmol/mL injection 18 mL 18 mL, intravenous, Once in imaging, contrast, Starting on Fri04/17/22 at 0948, For 1 dose Contrast Given 04/17/2022 9:49 AM CDT 18 mL documented in this encounter Orders Medications Ordered That Robert ht Not Have Been Administered Count Last Ordered Date First Ordered Date gadoterate meglumine 0.5 mmo l/mL injection 18 mL 1 04/17/2022 documented in this encounter Care Teams Medical Insurance Coder Relationship Specialty Start Date End Date Cate Patel MD PCP - General Family Practice 04/30/19 04/02/23 documented as of this encounter
--- OUTSIDE RECORDS SUMMARY | 2024-09-21 04:25 | XMS_ITS | Encounter Summary ---
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) Chronic nonintractable headache, unspecified headache type Sarah Jang NP [address] [place] [address] Phone: tel: fax: Guerrero Nicholson MD [address] [place] [address] [place] [address] Phone: tel: fax: Referral ID Status Reason Start Date Expiration Date V isits Requested Visits Authorized [id number] Closed Specialty Services Required 04/23/2023 05/22/2024 1 1 Question Answer Please select the performing region: [facility] [[id number]] Please select the performing department: [facility] [[id number]] # of visits: 1 Comments Headache management, establish care. 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) Procedures MRI Brain W WO Contrast (Pituitary) Sarah Jang NP [address] [place] [address] Phone: tel: fax: [address] [phone] Referral ID Status Reason Start Date Expiration Date Visits Re quested Visits Authorized [id number] Closed 04/23/2023 05/22/2024 1 1 Reason for Visit * Consultation (Routine) - Closed Specialty Diagnoses / Procedures Referred By Yadiel t Referred To Contact Neurosurgery Diagnoses Pituitary macroadenoma (HCC) Sarah Jang NP [address] [place] [address] Phone: tel: fax: [facility] (All Locations) Referral ID Status Reason Start Date Expiration Date V isits Requested Visits Authorized [id number] Closed Specialty Services Required 04/17/2023 05/16/2024 1 1 Encounter Details Date Type Department Care Team (Latest Contact Info) Description 04/23/2023 9:00 AM CDT Telemedicine [facility] Neurosurgery [address] [facility] [address] [place] [id number] Sarah Jang NP [address] [place] [address] 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 During the visit, I was located in the office and the patient was located at home in the [facility]. The patient visit started at 1115 and ended at 1123. My total encounter time on 04/23/2023 was 20 minutes which was spent in the activities documented in the note. This includes time spent prior to the visit and after the visit in direct care of the patient. This time does not include time spent in any separately reportable services. The patient: has been informed that the visit may not be secure and acknowledged the information. After being given an opportunity to ask questions about and discuss this type of visit, they verballyconsented to proceeding with the telephone/video visit and understand that this service replaces anoffice visit. RETURN VISIT Subjective HISTORY OF PRESENT ILLNESS Silvia Boss is a pleasant 77 y.o. female who was diagnosed with a pituitary lesion in 2018 after undergoing an MRI of the brain for her chronic headaches. She established with Dr. Lema at that time and conservative treatment was pursued. She was last seen in April of 2022 where her imaging, vision and headaches were stable. She presents for a 1 year follow-up. Today, the patient states that she is been doing well. She does note some abnormality in her peripheral vision intermittently. She states that this is unchanged. She has not seen her assistant maintenance manager this year. She had to cancel her appointment due to transportation.Silvia Boss additionally continues to suffer from daily headaches. These start in her neck and occiput and radiate forward. She is been on Topamax 25 mg daily and this does not improve her headaches. The patient is no longer established with an electrician helper as she has no transportation to [place]. VITAL SIGNS There were no vitals taken for this visit. ALLERGIES She has No Known Allergies. MEDICATIONS Current Outpatient Medications: aspirin-calcium carbonate 81 mg-300 mg calcium(777 mg) tablet, Take 81 mg by mouth daily, Disp: , Rfl: atorvastatin (LIPITOR) 10 mg tablet, TAKE ONE TABLET BY MOUTH ONCE DAILY AT BEDTIME, Disp: , Rfl: calcium carbonate (CALCI-CHEW ORAL), Take by mouth, Disp: , Rfl: CARTIA XT 240 mg 24 hr capsule, Take 240 mg by mouth daily, Disp: , Rfl: 3 cholecalciferol (VITAMIN D-3) 50,000 unit capsule, Take 1 tablet by mouth every 7 days, Disp: , Rfl: cholecalciferol (VITAMIN D-3) 50,000 unit capsule, TAKE 1 CAPSULE BY MOUTH ONCE A WEEK FOR 12 DOSES, Disp: , Rfl: 0 citalopram (CeleXA) 20 mg tablet, TAKE 1 TABLET BY MOUTH ONCE DAILY, Disp: , Rfl: CONTRAVE 8-90 mg tablet extended release, TAKE 1 TABLET BY MOUTH IN THE MORING FOR 1 WEEK. 1 TABLETTWICE DAILY MORNING AND EVENING FOR 2ND WEEK. 2 TABLETS IN THE MORNING AND 1 TABLE, Disp: , Rfl: 2 dexAMETHasone (DECADRON) 1 mg tablet, take 1 mg at 11pm and go to the lab the next morning at 8am to have your blood drawn., Disp: 1 tablet, Rfl: 0 dilTIAZem XR (CARTIA XT) 240 mg 24 hr capsule, TAKE 1 CAPSULE BY MOUTH ONCE DAILY, Disp: , Rfl: levothyroxine (SYNTHROID, LEVOTHROID) 75 mcg tablet, TAKE 1 TABLET BY MOUTH ONCE DAILY, Disp: , Rfl: lisinopril-hydroCHLOROthiazide (PRINZIDE,ZESTORETIC) 20-25 mg per tablet, TAKE 1 TABLET BY MOUTH ONCE DAILY, Disp: , Rfl: loperamide (IMODIUM A-D) 2 mg tablet, Take 1 tablet by mouth daily as needed, Disp: , Rfl: melatonin 5 mg capsule, Take 5 mg by mouth nightly, Disp: , Rfl: multivitamin with minerals tablet, Take by mouth, Disp: , Rfl: naltrexone-bupropion (CONTRAVE) 8-90 mg tablet extended release, Initial, 1 tablet orally once daily in the morning for week 1; then 1 tablet twice daily, morning and evening, for week 2; then 2 tablets in the morning and 1 tablet in the evening for week 3 Maintenance (week 4 and thereafter), 2 tablets orally twice daily, morning and evening, Disp: , Rfl: omeprazole (PriLOSEC) 40 mg capsule, Take 40 mg by mouth daily, Disp: , Rfl: omeprazole (PriLOSEC) 40 mg capsule, Take 40 mg by mouth daily, Disp: , Rfl: 3 spironolactone (ALDACTONE) 25 mg tablet, TAKE 1 TABLET BY MOUTH ONCE DAILY, Disp: , Rfl: spironolactone (ALDACTONE) 25 mg tablet, Take 25 mg by mouth daily, Disp: , Rfl: 1 topiramate (TOPAMAX) 25 mg tablet, Take 25 mg by mouth 2 times daily, Disp: , Rfl: topiramate (TOPAMAX) 25 mg tablet, Take 25 mg by mouth 2 (two) times a day, Disp: , Rfl: 1 triamcinolone (KENALOG) 0.1 % cream, Application Site: hands Apply BID to affected area x 2 weeks or until resolved., Disp: , Rfl: Objective REVIEW OF IMAGING MRI Brain W WO Contrast (Pituitary) EXAM DESCRIPTION: MRI BRAIN W WO CONTRAST (PITUITARY) REASON FOR STUDY: brain tumor follow up Hx of pituitary tumor, monitor. Pt states no new medications and no new medications. TECHNIQUE: Multiplanar imaging includes non-contrasted T1, T2, FLAIR, diffusion with ADC map and post-gadolinium contrast T1 sequences. Additional blood product sensitive sequences. Pre and Post contrast thin slice imaging through the pituitary fossa. Images stored on PACS. CONTRAST TYPE/DOSE: 15mL of GADOTERATE MEGLUMINE 0.5 MMOL/ML INTRAVENOUS SOLUTION (SO) injected via intravenous COMPARISON: 04/17/2022 brain and pituitary MRI FINDINGS: PITUITARY: Redemonstrated is the lobulated lesion extending along the floor of left sella turcica into the clivus. This tissue demonstrates somewhat diminished enhancement compared to the remainder of the pituitary and there is possibly a more fluid signal intensity component along the inferior medial margin. Findings could represent inferior extension of a pituitary adenoma-macroadenoma. There is also component of empty sella configuration with herniation of CSF along the superior sella turcica. The lesion extends along the medial aspect of the left cavernous carotid artery without encasement. Grossly, findings are stable. CEREBRUM: No hemorrhage, edema, or mass effect. No abnormal enhancement. WHITE MATTER: Patchy T2 hyperintensity throughout periventricular and subcortical white matter. No new white matter abnormality. No enhancing white matter abnormality. POSTERIOR FOSSA: Brainstem and cerebellum appear unremarkable. No abnormal enhancement. DIFFUSION IMAGING: No recent or subacute infarction. EXTRAAXIAL SPACES: No hemorrhage. No mass or abnormal enhancement. BRAIN VOLUME: Within normal limits for age. VASCULATURE: No flow disturbance identified. ORBITS: No masses. Globes normal. PARANASAL AND MASTOID SINUSES: Well-aerated with no fluid levels. No mucosa thickening. OTHER: No other significant finding. IMPRESSION: Stable appearance of the lobulated lesion along the floor of the left sella turcica extending into the left clivus. No new or acute abnormality. Stable appearance of the brain. No new finding or other abnormality identified compared to multiple prior studies. THIS IS AN ELECTRONICALLY VERIFIED FINAL REPORT 04/16/2023 5:14 PM - Electronically signed by Luanne Mo M.D. LC: JOSE Report ID: [id number] Reading Location: [place] [address] Assessment/Plan ASSESSMENT Encounter Diagnoses Name Primary? 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 At this time, I would like to discuss the patient with Dr. Borges to see if she was aware of an electrician helper and [place] that the patient can establish with. She will need to see her assistant maintenance manager for repeat visual patten as soon as she is able to. I will also refer her to a neurologist in [place] for headachemanagement. I would like see her back in 1 year with an MRI of the brain, pituitary protocol. I have asked Silvia Boss to contact the office with any questions or concerns in the interim. 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) Chronic nonintractable headache, unspecified headache type Expected: 04/24/2023 (Approximate), Expires: 04/23/2024 documented as of this encounter Visit Diagnoses Diagnosis 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
--- OUTSIDE RECORDS SUMMARY | 2024-09-21 04:25 | XMS_ITS | Encounter Summary ---
Author Organization [facility] Address [address] [place] [address] Phone Care Team Providers Care Searchlight Operator Name Role Phone Cate Patel MD Primary Care Provider + [phone] Reason for Visit * Reason Onset Date Comments Medical Question/Miscellaneous 07/30/2021 r e: steroid injection Encounter Details Date Type Department Care Team (Late st Contact Info) Description 07/30/2021 Telephone [facility] Endocrinology Metabolism and Lipid [address] 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 Unable to reach either. Will try again. [phone] [employer] * Telephone Encounter - Sarah Borges MD - 08/01/2021 2:50 PM CDT Let them know no contraindication from my standpoint and no special instructions JS * Telephone Encounter - Fernanda Gaviria RN - 07/30/2021 4:13 PM CDT Leona with Interventional [facility] is reaching out on behalf of Dori BRIGGS. Patient to receive a steroid injection on her C7-T1 spine and inquiring if there is any contraindication or special instructions from Dr. Borges. documented in this encounter Plan of Treatment Not on file documented as of this encounter Visit Diagnoses Not on filedocumented in this encounter Care Teams Searchlight Operator Relationship Specialty Start Date End Date Cate Patel MD PCP - General Family Practice 04/30/19 04/02/23 documented as of this encounter
--- OUTSIDE RECORDS SUMMARY | 2024-09-21 04:25 | XMS_ITS | Encounter Summary ---
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) Procedures MRI Brain W WO Contrast (Pituitary) MRI Brain W WO Contrast Sindhu Thomason NP [address] [place] [address] Phone: tel: fax: [address] [phone] Referral ID Status Reason Start Date Expiration Date Visits Re quested Visits Authorized [id number] Closed 04/17/2022 05/17/2023 1 1 Encounter Details Date Type Department Care Team (Latest Contact Info) Description 04/16/2023 8:56 AM CDT - 04/16/2023 11:59 PM CDT Hospital Encounter [facility] [address] [place] [address] Sindhu Thomason NP [address] [place] [address] 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. 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 MRI BRAIN W WO CONTRAST (PITUITARY) REASON FOR STUDY: ?? brain tumor follow up ?? Hx of pituitary tumor, monitor. Pt states no new medications and no new medications. ? TECHNIQUE: Multiplanar imaging includes non-contrasted T1, T2, FLAIR, diffusion with ADC map and post-gadolinium contrast T1 sequences. Additional blood product sensitive sequences. Pre and Post contrast thin slice imaging through the pituitary fossa. Images stored on PACS. ? CONTRAST TYPE/DOSE: ?? 15mL of GADOTERATE MEGLUMINE 0.5 MMOL/ML INTRAVENOUS SOLUTION (SO) ??injected via ?? intravenous COMPARISON: ?? 04/17/2022 brain and pituitary MRI FINDINGS: PITUITARY: ?? Redemonstrated is the lobulated lesion extending along the floor of left sella turcica into the clivus. ??This tissue demonstrates somewhat diminished enhancement compared to the remainder of the pituitary and there is possibly a more fluid signal intensity component along the inferior medial margin. ??Findings could represent inferior extension of a pituitary adenoma-macroadenoma. ??There is also component of empty sella configuration with herniation of CSF along the superior sella turcica. ??The lesion extends along the medial aspect of the left cavernous carotid artery without encasement. ??Grossly, findings are stable. CEREBRUM: ?? No hemorrhage, edema, or mass effect. ??No abnormal enhancement. ? WHITE MATTER: ?? Patchy T2 hyperintensity throughout periventricular and subcortical white matter. ??No new white matter abnormality. ??No enhancing white matter abnormality. POSTERIOR FOSSA: ?? Brainstem and cerebellum appear unremarkable. No abnormal enhancement. DIFFUSION IMAGING: ?? No recent or subacute infarction. EXTRAAXIAL SPACES: ?? No hemorrhage. No mass or abnormal enhancement. BRAIN VOLUME: ?? Within normal limits for age. VASCULATURE: ?? No flow disturbance identified. ORBITS: ?? No masses. Globes normal. PARANASAL AND MASTOID SINUSES: ?? Well-aerated with no fluid levels. No mucosa thickening. OTHER: ?? No other significant finding. IMPRESSION: Stable appearance of the lobulated lesion along the floor of the left sella turcica extending into the left clivus. No new or acute abnormality. Stable appearance of the brain. ??No new finding or other abnormality identified compared to multiple prior studies. THIS IS AN ELECTRONICALLY VERIFIED FINAL REPORT 04/16/2023 5:14 PM - Electronically signed by ??Luanne Mo M.D. LC: JOSE D: ??04/16/2023 5:14 PM T: ??04/16/2023 5:14 PM Report ID: [id number] Reading Location: ??[id number] Procedure Note Natalia oM MD - 04/16/2023 EXAM DESCRIPTION: MRI BRAIN W WO CONTRAST (PITUITARY) REASON FOR STUDY: brain tumor follow up Hx of pituitary tumor, monitor. Pt states no new medications and no new medications. TECHNIQUE: Multiplanar imaging includes non-contrasted T1, T2, FLAIR, diffusion with ADC map and post-gadolinium contrast T1 sequences.Additional blood product sensitive sequences. Pre and Post contrast thin sliceimaging through the pituitary fossa. Images stored on PACS. CONTRAST TYPE/DOSE: 15mL of GADOTERATE MEGLUMINE 0.5 MMOL/ML INTRAVENOUS SOLUTION (SO) injected via intravenous COMPARISON: 04/17/2022 brain and pituitary MRI FINDINGS: PITUITARY: Redemonstrated is the lobulated lesion extending along thefloor of left sella turcica into the clivus. This tissue demonstrates somewhat diminished enhancement compared to the remainder of the pituitary andthere is possibly a more fluid signal intensity component along the inferior medial margin. Findings could represent inferior extension of a pituitary adenoma-macroadenoma. There is also component of empty sellaconfiguration with herniation of CSF along the superior sella turcica. The lesionextends along the medial aspect of the left cavernous carotid artery without encasement. Grossly, findings are stable. CEREBRUM: No hemorrhage, edema, or mass effect. No abnormalenhancement. WHITE MATTER: Patchy T2 hyperintensity throughout periventricular and subcortical white matter. No new white matter abnormality. No enhancing white matter abnormality. POSTERIOR FOSSA: Brainstem and cerebellum appear unremarkable. Noabnormal enhancement. DIFFUSION IMAGING: No recent or subacute infarction. EXTRAAXIAL SPACES: No hemorrhage. No mass or abnormal enhancement. BRAIN VOLUME: Within normal limits for age. VASCULATURE: No flow disturbance identified. ORBITS: No masses. Globes normal. PARANASAL AND MASTOID SINUSES: Well-aerated with no fluid levels. Nomucosa thickening. OTHER: No other significant finding. IMPRESSION: Stable appearance of the lobulated lesion along the floor of the leftsella turcica extending into the left clivus. No new or acute abnormality.Stable appearance of the brain. No new finding or other abnormality identified compared to multiple prior studies. THIS IS AN ELECTRONICALLY VERIFIED FINAL REPORT 04/16/2023 5:14 PM - Electronically signed by Luanne Mo M.D. 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) documented in this encounter Administered Medications Inactive Administered Medications - up to 3 most recent administrations Medication Order MAR Action Action Date Dose Rate Site gadoterate meglumine injection 15 mL 15 mL, intravenous, Once in imaging, contrast, Starting on Fri04/16/23 at 1054, For 1 dose Contrast Given 04/16/2023 10:55 AM CDT 15 mL documented in this encounter Orders Medications Ordered That Robert ht Not Have Been Administered Count Last Ordered Date First Ordered Date gadoterate meglumine injection 15 mL 1 04/05 documented in this encounter Care Teams Nnps Relationship Specialty Start Date End Date Unknown, Notinfile PCP - General 04/03/23 documented as of this encounter
--- OUTSIDE RECORDS SUMMARY | 2024-09-21 04:25 | XMS_ITS | Encounter Summary ---
Author Organization [facility] Address [address] [place] [address] Phone Care Team Providers Care Head Butler Name Role Phone Cate Patel MD Primary Care Provider + [phone] Encounter Details Date Type Department Care Team (Late st Contact Info) Description 04/18/2021 10:40 AM CDT Telemedicine [facility] Neurosurgery [address] [facility] [address] 6th [place] [address] [place] [id number] Vadim Browning MD PhD [address] [place] [address] Pituitary tumor (Primary Dx) Social History Tobacco [...] on file 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 She is a 75 y.o. female with a sellar lesion that has been followed by Dr. Lema in the past. The patient has some mild headaches but no vision changes or other new symptoms. The MRI is stable. VITAL SIGNS There were no vitals taken for this visit. ALLERGIES No Known Allergies MEDICATIONS Current Outpatient Medications Medication Sig Dispense Refill ??? aspirin-calcium carbonate 81 mg-300 mg calcium(777 mg) tablet Take 81 mg by mouth daily ??? atorvastatin (LIPITOR) 10 mg tablet TAKE ONE TABLET BY MOUTH ONCE DAILY AT BEDTIME ??? calcium carbonate (CALCI-CHEW ORAL) Take by mouth ??? CARTIA XT 240 mg 24 hr capsule Take 240 mg by mouth daily 3 ??? cholecalciferol (VITAMIN D-3) 50,000 unit capsule Take 1 tablet by mouth every 7 days ??? cholecalciferol (VITAMIN D-3) 50,000 unit capsule TAKE 1 CAPSULE BY MOUTH ONCE A WEEK FOR 12 DOSES 0 ??? citalopram (CeleXA) 20 mg tablet TAKE 1 TABLET BY MOUTH ONCE DAILY ??? CONTRAVE 8-90 mg tablet extended release [facility]. 1 TABLET TWICE DAILY MORNING AND EVENING FOR 2ND WEEK. 2 TABLETS IN THE MORNING AND 1 TABLE 2 ??? dexAMETHasone (DECADRON) 1 mg tablet take 1 mg at 11pm and go to the lab the next morning at 8am to have your blood drawn. 1 tablet 0 ??? dilTIAZem XR (CARTIA XT) 240 mg 24 hr capsule TAKE 1 CAPSULE BY MOUTH ONCE DAILY ??? levothyroxine (SYNTHROID, LEVOTHROID) 75 mcg tablet TAKE 1 TABLET BY MOUTH ONCE DAILY ??? lisinopril-hydroCHLOROthiazide (PRINZIDE,ZESTORETIC) 20-25 mg per tablet TAKE 1 TABLET BY MOUTHONCE DAILY ??? loperamide (IMODIUM A-D) 2 mg tablet Take 1 tablet by mouth daily as needed ??? melatonin 5 mg capsule Take 5 mg by mouth nightly ??? multivitamin with minerals tablet Take by mouth ??? naltrexone-bupropion (CONTRAVE) 8-90 mg tablet extended release Initial, 1 tablet orally once daily in the morning for week 1; then 1 tablet twice daily, morning and evening, for week 2; then 2 tablets in the morning and 1 tablet in the evening for week 3 Maintenance (week 4 and thereafter), 2 tablets orally twice daily, morning and evening ??? omeprazole (PriLOSEC) 40 mg capsule Take 40 mg by mouth daily ??? omeprazole (PriLOSEC) 40 mg capsule Take 40 mg by mouth daily 3 ??? spironolactone (ALDACTONE) 25 mg tablet TAKE 1 TABLET BY MOUTH ONCE DAILY ??? spironolactone (ALDACTONE) 25 mg tablet Take 25 mg by mouth daily 1 ??? topiramate (TOPAMAX) 25 mg tablet Take 25 mg by mouth 2 times daily ??? topiramate (TOPAMAX) 25 mg tablet Take 25 mg by mouth 2 (two) times a day 1 ??? triamcinolone (KENALOG) 0.1 % cream Application Site: hands Apply BID to affected area x 2 weeks or until resolved. No current facility-administered medications for this visit. Objective Physical exam: Over the phone, sounds well. Awake and alert and fully oriented with clear and fluent speech. REVIEW OF IMAGING Imaging review: I have personally reviewed the brain MRI from today and agree with the formal read which is: IMPRESSION: ?? Mildly enhancing lesion arising from the left inferior aspect of the sella, extending to the sphenoid sinus, grossly similar to prior exam, which could represent possible pituitary adenoma, with differential considerations including schwannoma or other primary sinonasal lesions. Assessment/Plan Plan In summary, Silvia Boss is a 75 y.o. female with a stable left sellar lesion. I think we can rescan in 1 year but emphasized with the patient to call us if any concerns arise in the interim. Telehealth Statement This was a telemedicine visit with Silvia Boss which took place via phone. During the visit, I was located in the 2nd floor of [facility] and the patient was located at home. The session started at 11AM and ended at 11:05AM. The patient has been informed that the visit may not be secure and acknowledged the information. I have explained the option of participating in a telephone or video visit during the COVID-19 public health emergency to the patient. After being given an opportunity to ask questions about and discuss this type of visit, the patient verbally consented to proceeding with the telephone/video visit.The patient understands that this service replaces an office visit and they may be billed and/or responsible for any applicable copayments. Vadim Browning MD, PhD Department of Neurological Surgery [facility] documented in this encounter Plan of Treatment Not on file documented as of this encounter Visit Diagnoses Diagnosis Pituitary tumor- Primary Neoplasm of unspecified nature of endocrine glands and other parts of nervous system documented in this encounter Care Teams Head Butler Relationship Specialty Start Date End Date Cate Patel MD PCP - General Family Practice 04/30/19 04/02/23 documented as of this encounter
--- OUTSIDE RECORDS SUMMARY | 2024-09-21 04:25 | XMS_ITS | Clinical Summary ---
Author Organization [facility] Address [address] [place] [address] Care Team Providers Care Advertising Assistant Manager Name Role Phone Unknown, Notinfile Primary Care [...] 09/03/2018,10/2011 Td, adsorbed 10/06/1989 ZOSTER LIVE 12/04/2012 Surgical History Surgery Date Site/Laterality Comments HYSTERECTOMY CHOLECYSTECTOMY BUNIONECTOMY CORRECTION HAMMER TOE EYE SURGERY TOTAL HIP ARTHROPLASTY Left HUMERUS FRACTURE SURGERY Right REPLACEMENT TOTAL KNEE Bilateral BACK SURGERY Medical History Medical History Date Comments Brain tumor (benign) (HCC) Arthritis Hypertension SOB (shortness of breath) Diabetes mellitus type I (HCC) Type 2 diabetes mellitus (HCC) Thyroid nodule UTI (urinary tract infection) Dermatitis Sinusitis Osteoarthritis History of blood transfusion Head ache sometimes poundi ng Dizziness when bend over Lightheadedness when bend over Diarrhea Eczema Easy bruising Sweating increase Weight gain Increased thirst H/O radioactive iodine thyroid ablation Family History Medical History Relation Name Comments Diabetes Brother Hypertension Brother Hypertension Father Depression Mother Diabetes Mother Heart attack Mother Hypertension Mother Hypertension Sister Relation Name Status Comments Brother Father Mother Sister Social History Tobacco Use Types Packs/Day Years [...] on file 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 Gender Identity Not on file Sexual Orientation Not on file Occupation Industry Job Start Date Job End Date retired Not on file Not on file Not on file Obstetrics History Last Filed Vital Signs Vital Sign Reading Time Taken Comments Blood Pressure 103/70 11/05/2023 3:05 PM RAILROAD BAGGAGE PORTER Pulse 79 11/05/2023 3:05 PM RAILROAD BAGGAGE PORTER Temperature - - Respiratory Rate 18 07/30/2023 1:37 PM CDT Oxygen Saturation 97% 11/05/2023 3:05 PM RAILROAD BAGGAGE PORTER Inhaled Oxygen Concentration - - Weight 82.1 kg (181 lb) 11/05/2023 3:05 PM RAILROAD BAGGAGE PORTER Height 157.5 cm (5' 2 ) 11/05/2023 3:05 PM RAILROAD BAGGAGE PORTER Body Mass Index 33.11 11/05/2023 3:05 PM RAILROAD BAGGAGE PORTER Plan of Treatment Health Maintenance Due Date Last Done Comments Depression Screening 1945 Fall Risk Assessment 1945 Hepatitis C Screening 1945 Hepatitis B Screening 1965 DTaP/Tdap/Td Vaccine (1 - Tdap) 10/07/1989 0 Well Visit 65+ 2012 Osteoporosis Screening-Bone Density Scan 07/17/2023 07/17/2021, 02/15/2019, 02/15/2019, Additional history exists Covid-19 Vaccine (4 2023-2 5 season) 2024 04/09/2022, 12/19/2020, 12/01/2020 Influenza Vaccine (#1) 2024 2, 07/06/2021, 06/28/2021, Additional history exists Pneumococcal vaccine 65+ Completed 018, 08/19/2017, 10/06/2011 Breast Cancer Screening-Mammogram Discontinued 04/20/2020, 04/20/2020, 04/18/2018, Additional history exists Zoster Vaccine Completed 07/10/2021, 02/2021, 12/04/2012 Medical Devices Implanted Type Area Die Trimmer Device Identifier Shelf Expiration Date Model / Serial / Lot Left Hip Replacement Left: Hip Jesus In Arm Right: Arm Duglas Knee Replacement Bilateral : Knee Insurance MEDICARE [employer] PPO MEDICARE COMMERCIAL [employer]IC [employer] PPO MEDICARE [facility] Care Teams Advertising Assistant Manager Relationship Specialty Start Date End Date Unknown, Notinfile PCP - General 04/03/23
--- OUTSIDE RECORDS SUMMARY | 2024-09-21 04:25 | XMS_ITS | Encounter Summary ---
Author Organization [facility] Address [address] [place] [address] Phone Care Team Providers Care Renal Case Manager Name Role Phone Cate Patel MD Primary Care Provider [phone] Encounter Details Date Type Department Care Team (Latest Contact Info) Description 04/24/2021 3:00 PM CDT Telemedicine [facility] Endocrinology Metabolism and Lipid [address] [facility] [address] 6th [place] [address] [place] [address] Sarah Borges MD [address] [facility] [address] [place] [address] Pituitary macroadenoma (CMS/HCC) (HCC) (Primary Dx); Primary hypothyroidism Social History Tobacco Use Types Packs/Day Years [...] on file 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 Gender Identity Not on file Sexual Orientation Not on file Occupation Industry Job Start Date Job End Date retired Not on file Not on file Not on file documented as of this encounter Last Filed Vital Signs Vital Sign Reading Time Taken Comments Blood Pressure - - Pulse - - Temperature - - Respiratory Rate - - Oxygen Saturation - - Inhaled Oxygen Concentration - - Weight 95.3 kg (210 lb) 04/24/2021 2:57 PM CDT Height 157.5 cm (5' 2 ) 04/24/2021 2:57 PM CDT Body Mass Index 38.41 04/24/2021 2:57 PM CDT documented in this encounter Patient Instructions * Patient Instructions* Sarah Borges MD - 04/24/2021 3:00 PM CDT Continue your current dose of levothyroxine Go to your local lab to have your blood drawn for a cortisol level at 8am (see lab order) Continue to follow up with Dr. Rai. He can continue to monitor your hormone levels documented in this encounter Progress Notes * Sarah Borges MD - 04/24/2021 3:00 PM CDT PATIENT NAME: Silvia Boss : 1945 04/24/2021 This was a telemedicine visit with Silvia Boss alone which took place via TelephoneNo Internet/Computer. During the visit, I was located in the office and the patient was located at home in the [facility]. The patient visit started at 3:09pm and ended at 3:16 pm. The patient: has been informed that the visit may not be secure and acknowledged the information. The option of participating in a telephone or video visit during the [address] emergencywas explained to them. After being given an opportunity to ask questions about and discuss this type of visit, they verbally consented to proceeding with the telephone/video visit and understand thatthis service replaces an office visit. CHIEF COMPLAINT: Follow up for a sellar mass PROBLEM LIST: Patient Active Problem List Diagnosis ??? MARY on CPAP ??? Osteoarthritis of multiple joints ??? Pituitary macroadenoma (CMS/HCC) ??? Prediabetes ??? Spinal stenosis of lumbar region ??? Thyroid nodule ??? Hypertension ??? Low bone density ??? Primary hypothyroidism ??? Anemia ??? Mixed hyperlipidemia ??? GERD (gastroesophageal reflux disease) ??? Iron deficiency HISTORY OF PRESENT ILLNESS: Ms. Boss is a 75 y.o. female with hx of HTN, HLD, sleep apnea, primary hypothyroidism and low bone density seen in consultation in our [facility]. 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 Liliya Rai at [facility] Patient reports imaging was done as part of an evaluation for headaches. An MRI done 04/23 shows sellar mass. Lab work thus far shows a slightly elevated IGF-1 and slightly elevated 24 urine cortisol (although I am unable to find an associated creatinine level) Imaging and labs include: MRI 04/07/2019: 1.2 x 1.8 x 1.1 cm hyperintense expansile mass left sella with inferior extension into the clivus and left sphenoid sinus and lateral extension into the left cavernous sinus. 05/05/2019: Acth 23, prolactin 16.5, TSH 2.37, free T4 1.2, 9:00 am cortisol 13, FSH 62.8, LH 29.7,IGF-1 214 (34-187), growth hormone 1.51, Twenty-four urine free cortisol 50 (3.5-45), 2.475 L (no creatinine reported) Hx HTN dx , well controlled Dx with pre-diabetes x 10 years, never been on medication Has hx of thyroid nodules, says had PAINTER 2006, was put on thyroid medication after that (but denies hx of hyperthyroidism) Says has thyroid nodules being followed Had FNA benign Hx of total hysterectomy 1991 for fibroid tumors Was on estrogen for 10 years Says doing okay Taking levothyroxine 75 mcg per day Saw her police lieutenant precinct yesterday Says doesn't have a lot of energy Swims 5 days per week Gets out 2-3 days per week, plays cards in card group Says sleeps well Wakes up a lot No nausea or vomiting Says appetite not as good as used to be Lost 30 lbs since 10/26 Weighs 210 lbs Says trying to loose weight Says needs knee and hip replacement. Has to loose weight + headaches Has had shoulder injections Pain management thinks headaches are coming from neck PAST MEDICAL HISTORY: Past Medical History: Diagnosis Date ??? Arthritis ??? Brain tumor (benign) (CMS/HCC) ??? Dermatitis ??? Diabetes mellitus type I (CMS/HCC) ??? Diarrhea ??? Dizziness when bend over ??? Easy bruising ??? Eczema ??? H/O radioactive iodine thyroid ablation ??? Head ache sometimes pounding ??? History of blood transfusion ??? Hypertension ??? Increased thirst ??? Lightheadedness when bend over ??? Osteoarthritis ??? Sinusitis ??? SOB (shortness of breath) ??? Sweating increase ??? Thyroid nodule ??? Type 2 diabetes mellitus (CMS/HCC) ??? UTI (urinary tract infection) ??? Weight gain PAST SURGICAL HISTORY: Past Surgical History: Procedure Laterality Date ??? BACK SURGERY ??? BUNIONECTOMY ??? CHOLECYSTECTOMY ??? CORRECTION HAMMER TOE ??? EYE SURGERY ??? HUMERUS FRACTURE SURGERY Right ??? HYSTERECTOMY ??? REPLACEMENT TOTAL KNEE Bilateral ??? TOTAL HIP ARTHROPLASTY Left ALLERGIES: No Known Allergies CURRENT MEDICATIONS: Current Outpatient Medications: ??? aspirin-calcium carbonate 81 mg-300 mg calcium(777 mg) tablet, Take 81 mg by mouth daily, Disp:, Rfl: ??? atorvastatin (LIPITOR) 10 mg tablet, TAKE ONE TABLET BY MOUTH ONCE DAILY AT BEDTIME, Disp: , Rfl: ??? calcium carbonate (CALCI-CHEW ORAL), Take by mouth, Disp: , Rfl: ??? CARTIA XT 240 mg 24 hr capsule, Take 240 mg by mouth daily, Disp: , Rfl: 3 ??? cholecalciferol (VITAMIN D-3) 50,000 unit capsule, TAKE 1 CAPSULE BY MOUTH ONCE A WEEK FOR 12 DOSES, Disp: , Rfl: 0 ??? citalopram (CeleXA) 20 mg tablet, TAKE 1 TABLET BY MOUTH ONCE DAILY, Disp: , Rfl: ??? CONTRAVE 8-90 mg tablet extended release, TAKE 1 TABLET BY MOUTH IN THE [facility] FOR 1 WEEK. 1 TABLET TWICE DAILY MORNING AND EVENING FOR 2ND WEEK. 2 TABLETS IN THE MORNING AND 1 TABLE, Disp: , Rfl: 2 ??? dexAMETHasone (DECADRON) 1 mg tablet, take 1 mg at 11pm and go to the lab the next morning at 8am to have your blood drawn., Disp: 1 tablet, Rfl: 0 ??? dilTIAZem XR (CARTIA XT) 240 mg 24 hr capsule, TAKE 1 CAPSULE BY MOUTH ONCE DAILY, Disp: , Rfl: ??? levothyroxine (SYNTHROID, LEVOTHROID) 75 mcg tablet, TAKE 1 TABLET BY MOUTH ONCE DAILY, Disp: ,Rfl: ??? lisinopril-hydroCHLOROthiazide (PRINZIDE,ZESTORETIC) 20-25 mg per tablet, TAKE 1 TABLET BY MOUTH ONCE DAILY, Disp: , Rfl: ??? loperamide (IMODIUM A-D) 2 mg tablet, Take 1 tablet by mouth daily as needed, Disp: , Rfl: ??? melatonin 5 mg capsule, Take 5 mg by mouth nightly, Disp: , Rfl: ??? multivitamin with minerals tablet, Take by mouth, Disp: , Rfl: ??? naltrexone-bupropion (CONTRAVE) 8-90 mg tablet extended release, Initial, 1 tablet orally once daily in the morning for week 1; then 1 tablet twice daily, morning and evening, for week 2; then 2 tablets in the morning and 1 tablet in the evening for week 3 Maintenance (week 4 and thereafter), 2tablets orally twice daily, morning and evening, Disp: , Rfl: ??? omeprazole (PriLOSEC) 40 mg capsule, Take 40 mg by mouth daily, Disp: , Rfl: ??? omeprazole (PriLOSEC) 40 mg capsule, Take 40 mg by mouth daily, Disp: , Rfl: 3 ??? spironolactone (ALDACTONE) 25 mg tablet, TAKE 1 TABLET BY MOUTH ONCE DAILY, Disp: , Rfl: ??? spironolactone (ALDACTONE) 25 mg tablet, Take 25 mg by mouth daily, Disp: , Rfl: 1 ??? topiramate (TOPAMAX) 25 mg tablet, Take 25 mg by mouth 2 times daily, Disp: , Rfl: ??? topiramate (TOPAMAX) 25 mg tablet, Take 25 mg by mouth 2 (two) times a day, Disp: , Rfl: 1 ??? triamcinolone (KENALOG) 0.1 % cream, Application Site: hands Apply BID to affected area x 2 weeks or until resolved., Disp: , Rfl: ??? cholecalciferol (VITAMIN D-3) 50,000 unit capsule, Take 1 tablet by mouth every 7 days, Disp: ,Rfl: FAMILY HISTORY: Family History Problem Relation Age of Onset ??? Diabetes Mother ??? Depression Mother ??? Heart attack Mother ??? Hypertension Mother ??? Hypertension Father ??? Hypertension Sister ??? Hypertension Brother ??? Diabetes Brother SOCIAL HISTORY: Social History Socioeconomic History ??? Marital status: Spouse name: Not on file ??? Number of children: 2 ??? Years of education: Not on file ??? Highest education level: Not on file Occupational History ??? Occupation: retired Tobacco Use ??? Smoking status: Never Smoker ??? Smokeless tobacco: Never Used Substance and Sexual Activity ??? Alcohol use: Never ??? Drug use: Never ??? Sexual activity: Not on file Other Topics Concern ??? Not on file Social History Narrative ??? Not on file Social Determinants of Health Financial Resource Strain: ??? Difficulty of Paying Living Expenses: Food Insecurity: ??? Worried About Running Out of Food in the Last Year: ??? Ran Out of Food in the Last Year: Transportation Needs: ??? Lack of Transportation (Medical): ??? Lack of Transportation (Non-Medical): Physical Activity: ??? Days of Exercise per Week: ??? Minutes of Exercise per Session: Stress: ??? Feeling of Stress : Social Connections: ??? Frequency of Communication with Friends and Family: ??? Frequency of Social Gatherings with Friends and Family: ??? Attends [employer] Services: ??? Active Member of Clubs or Organizations: ??? Attends Club or Organization Meetings: ??? Marital Status: Intimate Partner Violence: ??? Fear of Current or Ex-Partner: ??? Emotionally Abused: ??? Physically Abused: ??? Sexually Abused: retired from [employer] Lives with sister Two children REVIEW OF SYSTEMS: A comprehensive review of systems was negative. PHYSICAL EXAM: Vitals Ht 157.5 cm (5' 2 ) Wt 95.3 kg (210 lb) BMI 38.41 kg/m?? LABS: No results found for: HGBA1C No results found for: CHOLESTEROL, HDL, LDL, LDLCALC, CHOLESTEROL, HDL, LDL Lab Results Component Value Date CREATININE 1.2 12/07/2013 No results found for: TSH, FREET4, THYROIDAB No results found for: THYROGLOBULI, THGABINT Lab Results Component Value Date CORTISOL 28.2 04/24/2020 No results found for: TESTOSTERONE, TESTOSTFREE Lab Results Component Value Date CALCIUM 8.4 (L) 12/07/2013 Lab Results Component Value Date GLUCOSE 111 12/07/2013 CALCIUM 8.4 (L) 12/07/2013 SODIUM 134 (L) 12/07/2013 POTASSIUM 4.9 12/07/2013 CO2 25 12/07/2013 CHLORIDE 101 12/07/2013 BUNSER 46 (H) 12/07/2013 CREATININE 1.2 12/07/2013 No results found for: ALT, AST, GGT, ALKPHOS, BILITOT Lab Results Component Value Date HGB 11.9 12/13/2013 HCT 35.0 12/13/2013 MCV 91.3 12/07/2013 LABPLAT 339 12/07/2013 Low dose DEX suppression test 05/28/19: am cortisol 1.7 High dose ACTH stimulation test: Component Latest Ref Rng & Units 04/24/2020 04/24/2020 04/24/2020 10:18 AM 10:48 AM 11:18 AM Cortisol, base mcg/dL 12.3 Cortisol, 30 min mcg/dL 24.3 Cortisol, 60 min mcg/dL 28.2 02/22/21: FT4 1.6, TSH 1.18 IMAGING: DEXA 02/15/19: COMPARISON:?12/30/2016, 06/22/2012 FINDINGS:?AP LUMBAR SPINE L1-L4: Total BMD is 1.311 g/cm2 T-score is 0.9 Most recent prior BMD was 1.355 g/cm2 There has been a 3.2% decrease in BMD which is statistically significant. RIGHT HIP: Current Total BMD is 0.847 g/cm2 T-score is -1.3 Most recent prior Total BMD was 0.869 g/cm2 There has been a 2.5% decrease in BMD which is not statistically significant. Current femoral neck BMD is 0.795 g/cm2 T-score is -1.7 Fracture risk assessment (FRAX): ? 10 year risk for a major osteoporotic fracture is 14.2 % ? 10 year risk for a hip fracture is 2.2 % MRI 04/18/21: Mildly enhancing lesion arising from the left inferior aspect of the sella, extending to the sphenoid sinus, grossly similar to prior exam, which could represent possible pituitary adenoma, with differential considerations including schwannoma or other primary sinonasal lesions. ASSESSMENT: #Sellar mass found to have a sellar mass on imaging done as part of an evaluation for headaches. Patient being managed conservatively with serial imaging Now seeing Dr. Browning MRI 04/25 stable Plans to repeat MRI one year #Primary hypothyroidism TSH/FT4 normal 02/23 Cont current dose of levothyroxine as per endo #Other Hormonal Status GH: IGF-1 at [facility] was normal. No signs or symptoms of acromegaly. HPA axis: No signs or symptoms of rafael's at this time. 24 hour [employer] slightly elevated without Cr LDDST screen for CD was negative (05/24) ACTH stimulation test normal 04/2020 Will check 8am cortisol Reports decreased appetite but otherwise no sxs of AI Would screen for AI yearly Gonadal: menopausal Prolactin normal PLAN: -check 8am cortisol-->would check yearly -MRI one year as per NSG Problem List Endocrine and Metabolic Primary hypothyroidism Hematology and Neoplasia Pituitary macroadenoma (CMS/HCC) - Primary Relevant Orders Cortisol F/U PRN (patient will continue to see Dr. Rai) Sarah Borges MD Physiology Teacher [facility] emergency nurse and Neurological Surgery Division Endocrinology, Metabolism and Lipid Research [address], [address], [place] [address] P: [phone] F: [phone] documented in this encounter Miscellaneous Notes * Result Encounter Note - Sarah Borges MD - 05/14/2021 10:23 AM CDT Please let patient know her cortisol level came back normal. Thanks JS 05/07/21: am cortisol 9 documented in this encounter Plan of Treatment Not on file documented as of this encounter Procedures Procedure Name Priority Date/Time Associated Diagnosis Comments CORTISOL Routine 05/07/2021 Pituitary macroadenoma (CMS/HCC) (HCC) documented in this encounter Results * Cortisol (05/07/2021) Blood specimen (specimen) us Sarah Borges MD LAB BLOOD ORDERABLES Final Result EXTERNAL LAB documented in this encounter Visit Diagnoses Diagnosis 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) Primary hypothyroidism Unspecified hypothyroidism documented in this encounter Care Teams Renal Case Manager Relationship Specialty Start Date End Date Cate Patel MD PCP - General Family Practice 04/30/19 04/02/23 documented as of this encounter
--- OUTSIDE RECORDS SUMMARY | 2024-09-21 04:25 | XMS_ITS | Continuity of Care Document ---
Author Organization [facility] Address [address] [place] [address] Phone Care Team Providers Care Beam House Inspector Name Role Phone Blanquita Bennett MD Unavailable Unavailable Allergies, Adverse Reactions, Alerts Substance Reaction Status Criticality No Known Allergies Active No Inform ation Procedures Procedure Date Office/outpatient Visit, [facility] ROUTINE VENIPUNCTURE C-REACTIVE PROTEIN Rheumatoid Factor, Quant Rbc Sed Rate, Automated CCP ANTIBODY Advance Directives Directive Yes / No Effective Date File Name No Information Encounters Encounter Description Practice Location Reason(s) For Visit Diagnoses Date Provider Providers Copied on Encounter [facility], [address], [place], [place], [id number], [place] tel:[phone] TERI Rouse No Information 3 Donald Juares. [address], [place], [address], [place]. tel:[phone] Office/outpat ient Visit, [facility], [address], [place], [place], [id number], [place] tel:[phone] TERI Rouse Joint Pain (chief complaint) Osteoarthritis involving multiple joints on both sides of bodyOther specified arthritis, multiple sitesLong term use of drug Jan- 3 Kevin Aponte. [address], [place], [place], [id number] , [place]. tel:[phone] Referring Provider: Blanquita Bennett, [address], [place], [address]. tel:[phone] Family History Family Member Type Diagnosis Age At Onset No Information Payers Payer name Insurance type Covered libertarian ID Genaro li(s) Medicare [id number] [employer] Medicare Supp AESSI CI [id number] Social History Type Description Quantity Date Captured Comments Alcohol Use Details Unknown Caffeine Use Details Unknown Tobacco Use Status Smoking Status No Information Sex Female Chief Complaint And Reason For Visit No Information Reason For Referral Reason For Referral No Information Plan Of Treatment Date Type Action Status Patient Education Osteoarthritis: Care In structions completed History Of Present Illness Encounter Date Complaint History Of Prese nt Illness Joint Pain Functional Status Date Functional Assessmen t No Information Instructions Date Instruction Additional Infor mation --will FU with ortho to discuss knee replacements. Related to Osteoarthritis involving multiple joints on both sides of body --for completeness, obtain RF, CCP, ESR, CRP. Related to Other specified arthritis, multiple sites --advised Tylenol [place] N. -- Recommend conservative management with Tylenol Arthritis 650mg one PO TID prn pain. If taking Tylenol regularly, pt understands that they should have regular monitoring labs at least Q6 months. Related to USP use of drug Assessments Type Assessment Date No Information Patient Care Teams Name Effective Dates (start - stop) Status Members No Information
--- OUTSIDE RECORDS SUMMARY | 2024-09-21 04:25 | XMS_ITS | Encounter Summary ---
Author Organization [facility] Address [address] [place] [address] Phone Care Team Providers Care Line Assigner Name Role Phone Cate Patel MD Primary Care Provider [phone] Reason for Referral * MRI/CAT/PET Scan (Routine) - Closed Specialty Diagnoses / Procedures Referred By Contac t Referred To Contact Radiology Diagnoses Pituitary tumor Procedures MRI Brain W WO Contrast Vadim Browning MD PhD [address] [place] [address] Phone: tel: fax: [address] [address] Referral ID Status Reason Start Date Expiration Date Visits Re quested Visits Authorized [id number] Closed 04/19/2021 05/19/2022 1 1 Encounter Details Date Type Department Care Team (Late st Contact Info) Description 04/19/2021 Orders Only [facility] Neurosurgery [address] [facility] [address]th [place] [address] [place] [address] Vadim Browning MD PhD [address] [place] [address] Pituitary tumor (Primary Dx) Social History Tobacco [...] on file 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 Electronically signed by: Vinay Arora M.D. Vadim Browning MD PhD IMG MRI PROCEDURES Final Result documented in this encounter Visit Diagnoses Diagnosis Pituitary tumor- Primary Neoplasm of unspecified nature of endocrine glands and other parts of nervous system Pituitary tumor Neoplasm of unspecified nature of endocrine glands and other parts of nervous system documented in this encounter Care Teams Line Assigner Relationship Specialty Start Date End Date Cate Patel MD PCP - General Family Practice 04/30/19 04/02/23 documented as of this encounter
--- OUTSIDE RECORDS SUMMARY | 2024-09-21 04:26 | XMS_ITS | Encounter Summary ---
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
--- OUTSIDE RECORDS SUMMARY | 2024-09-21 04:26 | XMS_ITS | Encounter Summary ---
Author Organization [facility] Care Team Providers Care Wire Roller Name Role Phone Unavailable Primary Care Provider Unavailabl e Encounter Details Date Type Department Care Team (Latest Contact Info) Description 12/13/2013 9:11 AM CDT - 12/13/2013 1:39 PM CDT Hospital Encounter [facility] [place] [address] [address] Spinal stenosis of lumbar region without neurogenic claudication; Disorder of nervous system Social History Tobacco Use Types Packs/Day Years Used Date Smoking Tobacco: Never Assessed Comments Unknown Sex and Gender Information Value Date Recorded Sex Assigned at Not on file 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 Date: Attending: LEROY MCKEE MD Admit Date: 12/13/2013 Dictating: MARIBELL ASHBY Disch. Date: Patient Type: S ADMISSION HISTORY: Ms. Boss presented to our office complaining of bilateral buttock and leg pain. In the morning, her legs and feet sometimes feel numb. If she walks even short distances her legs feel heavy. She feels like she cannot control them. She is much more comfortable if she leans forward on a cart while grocery shopping. She denies focal lower extremity weakness. She denies alterations in bowel and bladder function. ALLERGIES: No known drug allergies. CURRENT MEDICATIONS: 1. Levothyroxine. 2. Lisinopril. 3. Citalopram. 4. Diltiazem. 5. Spironolactone. PAST MEDICAL HISTORY: 1. Anemia. 2. Hypertension. 3. Sleep apnea. 4. Thyroid disease. 5. Gastroesophageal reflux. 6. Osteoarthritis. 7. Diabetes. 8. Depression. PAST SURGICAL HISTORY: 1. Bilateral carpal tunnel release. 2. Thyroid radiation. 3. Left hip replacement. 4. ORIF of the right arm. 5. Cholecystectomy. 6. Bilateral bunion removal. 7. Bladder suspension. 8. Complete hysterectomy. SOCIAL HISTORY: Ms. Boss is . She has 2 children. She does not smoke or drink alcohol. PHYSICAL EXAMINATION: GENERAL: This woman stands 5 feet 3 inches tall and weighs 264 pounds. HEENT: Within normal limits. CARDIOVASCULAR: She has a regular rate and rhythm, no ectopy or murmur noted. CHEST: Lungs are clear to auscultation bilaterally. Chest expansion is symmetrical. Respirations are even and unlabored. ABDOMEN: Bowel sounds are present in all four quadrants. Abdomen is soft, nontender, nondistended. EXTREMITIES: Pulses are palpable in both wrists and both feet. No cyanosis, clubbing, or edema noted. NEUROLOGIC: There is settled weakness in the tibialis anterior and extensor hallucis longus on both the right and the left. Otherwise strength is 5/5. Motor tone is normal. No atrophy is noted. Deep tendon reflexes are 2/4 at the knees and 2/4 at the ankles. The plantar response is downgoing. RADIOGRAPHIC: Review of an MRI of the lumbar spine demonstrates multilevel degenerative disk disease which is most prominent at L4-5 and L5-S1. There is severe central and lateral recess stenosis from L1-2 to L4-5 which is worse at L3-4 and L4-5. There is some left-sided lateral recess narrowing at L5-S1. ASSESSMENT AND PLAN: Ms. Boss has neurogenic claudication secondary to the stenosis seen at L3-4 and L4-5. Her symptoms have been persistent and I doubt injections would give her any more than short-term relief of her symptoms as the stenosis is quite severe. I have discussed the nature of a lumbar decompression. I have discussed the risks, benefits, and alternatives. I have discussed the expected hospitalization and recovery time. Ms. Boss understands all of these matters and has elected to proceed with surgery. LEROY MCKEE MD Dictated by: MARIBELL ASHBY TS/sn TD: 12/08/2013 15:59 Authenticated by Leroy Mckee Iii, MD On 12/15/2013 09:57:03 AM * Op Note - Provider, MD Devin - 12/13/2013 12:00 AM CDT Patient: SILVIA BOSS Account: [id number] Room No: : 1945 Proc. Date: 12/13/2013 Surgeon: LEROY MCKEE MD Admit Date: 12/13/2013 Disch. Date: 12/13/2013 Patient Type: S PREOPERATIVE DIAGNOSIS: L3-4 and L4-5 spinal stenosis, neurogenic claudication. POSTOPERATIVE DIAGNOSIS: L3-4 and L4-5 spinal stenosis, neurogenic claudication. NAME OF PROCEDURE: Left L3-4 and L4-5 hemilaminotomies with central and bilateral lateral recess decompressions. SURGEON: Leroy Mckee MD. CORRECTIONS OFFICER: MARIBELL Ashby. ANESTHESIA: General endotracheal. DESCRIPTION OF OPERATIVE PROCEDURE: After the induction of adequate general endotracheal anesthesia, Mrs Boss was turned prone onto the radiolucent Gera frame. Pressure points were padded. The C-arm was brought into the field and used to preet the L3-4 and L4-5 interspinous spaces. C-arm was withdrawn. Back was prepared and draped in the usual sterile fashion. Skin incision was made from the mid point of the L3 spinous process to the L4-5 interspinous space. Dissection was carried down through the subcutaneous fat to the fascia. The fascia was incised to the left of midline. Subperiosteal dissection was carried down the sides of L3 through L5 and out of the lamina. Self-retaining retractor was placed. Using a Leksell rongeur, I thinned the inferior portion of the left L3 hemilamina. I developed a plane between the ligamentum flavum and the underside of L3. I then removed the thinned residual bone with the 3 mm Kerrison. Bony removal was continued superiorly until I reached the superior attachment point of the ligamentum flavum. The ligamentum flavum was detached from the underside of L3 and from the superior edge of L4. It was then removed in a piece meal fashion. I removed that portion of the superior aspect of L4 that was necessary to decompress the dural tube. I undercut the left L3-4 facet joint using a high speed stefania yari. Bony removal was continued laterally until I reached the medial aspect of the left L4 pedicle. Superior to the facet joint, I undercut the L3 pars and minimized my lateral resection to avoid over thinning of the pars interarticularis. I palpated out the left L4 foramen which was opened. Superior to the L4 pedicle, I removed hypertrophied bone and ligamentum with a foraminal Kerrison until I was confident that the dural tube was entirely decompressed. I now angulated my retractor to the right. I undercut the base of the L3 and L4 spinous processes. I developed a plane centrally and then to the right of midline between the ligamentum flavum and the dura. There was considerable ligamentous and facet hypertrophy. This was taken down using the drill and the Kerrison. I worked to the right until I identified visually and by palpation the medial wall of the right L4 pedicle. I palpated out the right L4 foramen which was open. Superior to the pedicle, I reached laterally with the 2 mm foraminal and 45 mm Kerrison, decompressing the lateral recess including the right L3 foramen. I moved my retractor to L4-5 and the same procedure was completed at this level. Somewhat surprisingly, the spinal stenosis at this segment was much worse than what I encountered at L3-4 although the preoperative MRI did not suggest this. A marker was placed. The C-arm was sterilely draped and brought into the field. Our position was confirmed. The C-arm was withdrawn. The wound was irrigated. Subcutaneous fat was harvested, soaked in saline and then Solu-Medrol. Paraspinal musculature was infiltrated with dilute Marcaine with epinephrine. Fat graft was placed over the dura. Muscle and fascia were closed with interrupted -0- Vicryl. The superficial fascia was closed using interrupted 2-0 Vicryl. The dermis was closed with interrupted 3-0 Vicryl. The skin was closed with Steri-Strips. The patient tolerated the procedure well. COMPLICATIONS: None. ESTIMATED BLOOD LOSS: Minimal. MD SWETA FIELDS/carol TD: 12/14/2013 13:00 Authenticated by Leroy Mckee Iii, MD On 12/15/2013 09:57:06 AM documented in this encounter Plan of Treatment Not on file documented as of this encounter Procedures Procedure Name Priority Date/Time Associated Diagnosis Comments BLOOD GLUCOSE Routine 12/13/2013 3:07 PM CDT BLOOD POINT OF CARE PANEL Routine 12/13/2013 11:20 AM CDT BLOOD POINT OF CARE PANEL Routine 12/13/2013 11:12 AM CDT DISCHARGE LABORATORY CUMULATIVE REPORT 12/13/2013 documented in this encounter Results * Blood glucose (12/13/2013 3:07 PM CDT) Glucose, POC, bld 125 70 - 199 mg/dl HISTORICAL RESULTS Comment: Glucose is assumed to be non-fasting. Fasting Glucose reference ranges are: 0 - 999 years: ?70 mg/dL - 99 mg/dL Please note the new reference ranges for the Random Point of Care Glucose level as of 07/06/13. Blood specimen (specimen) 12/13/2013 3:07 PM CDT us Leroy Mckee III, MD LAB BLOOD ORDERABLES Final Result HISTORICAL RESULTS * Blood point of care panel (12/13/2013 11:20 AM CDT) Hgb 11.9 g/dl HISTORICAL RESULTS Comment: No reference ranges established. The Hemoglobin is a calculated value based on the measured Hematocrit. Hct 35.0 34 - 38 % HISTORICAL RESULTS Potassium, bld 4.3 3.5 - 4.5 mmol/L HISTORICAL RESULTS Blood specimen (specimen) 12/13/2013 11:20 AM CDT Leroy Mckee III, MD LAB BLOOD ORDERABLES Final Result Performing Organization Address City/State/[facility] Co de Phone Number HISTORICAL RESULTS * (ABNORMAL) Blood point of care panel (12/13/2013 11:12 AM CDT) Hgb 10.2 g/dl HISTORICAL RESULTS Comment: No reference ranges established. The Hemoglobin is a calculated value based on the measured Hematocrit. Hct 30.0(L) 34 - 38 % HISTORICAL RESULTS Potassium, bld 4.3 3.5 - 4.5 mmol/L HISTORICAL RESULTS Blood specimen (specimen) 12/13/2013 11:12 AM CDT Leroy Mckee III, MD LAB BLOOD ORDERABLES Final Result Performing Organization Address City/State/[facility] Co de Phone Number HISTORICAL RESULTS * DISCHARGE LABORATORY CUMULATIVE REPORT (12/13/2013) Narrative 12/13/2013 Ordered by an unspecified provider. Historical Provider LAB BLOOD ORDERABLES Alysia l Result documented in this encounter Visit Diagnoses Diagnosis Spinal stenosis of lumbar region without neurogenic claudication Disorder of nervous system Unspecified disorders of nervous system documented in this encounter
--- OUTSIDE RECORDS SUMMARY | 2024-09-21 04:26 | XMS_ITS | Encounter Summary ---
Author Organization [facility] Healthcare Address [address] [place] [address] Care Team Providers Care Sales Porter Name Role Phone Unavailable Primary Care Provider Unavailabl e Encounter Details Date Type Department Care Team (Late st Contact Info) Description 03/07/2008 8:20 AM CDT - 03/07/2008 1:30 PM CDT Hospital Encounter [facility] Mary Nielson MD [address] [facility] [place] [address] Arlene Simon MD [address] [place] [address] Social History Tobacco Use Types Packs/Day Years Used Date Smoking Tobacco: Never Assessed Comments Unknown Sex and Gender Information Value Date Recorded Sex Assigned at Not on file 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
--- OUTSIDE RECORDS SUMMARY | 2024-09-21 04:26 | XMS_ITS | Encounter Summary ---
Author Organization [facility] Address [address] [place] [address] Phone Care Team Providers Care Ceramics Engineer Name Role Phone Cate Patel MD Primary Care Provider + [phone] Encounter Details Date Type Department Care Team (Late st Contact Info) Description 05/03/2019 Telephone [place] [id number] [facility] Advanced Medicine 6th [place] [address] [place] [address] Thania Ramon BS Social History Tobacco Use Types Packs/Day Years Used Date Smoking Tobacco: Never Assessed AUDIT-C Answer Date Recorded Frequency of Alcohol Consumption Never 05/25/2019 Average Number of Drinks Not on file 019 Frequency of Binge Drinking Not on file 05/07 Comments Unknown Sex and Gender Information Value Date Recorded Sex Assigned at Not on file 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 Patient is aware of new appt with JS on 05/25. Pt is having labs done this week * Telephone Encounter - Rosalba Briceno - 05/04/2019 8:34 AM CDT I rescheduled her to 8/20 at 10:40. Pretty sure JS will be OK with that, Marge * Telephone Encounter - Ihsan Smith BS - 05/03/2019 2:46 PM CDT Please schedule if possible. * Telephone Encounter - Thania Ramon BS - 05/03/2019 9:57 AM CDT Pit tumor- patient is scheduled with Dr. Lema on 05/25 @9:50AM. Would JS be able to see same day? Ifnot patient patient will keep 05/28 appt with her. Waiting on all labs documented in this encounter Plan of Treatment Not on file documented as of this encounter Visit Diagnoses Not on filedocumented in this encounter Care Teams Ceramics Engineer Relationship Specialty Start Date End Date Cate Patel MD PCP - General Family Practice 04/30/19 04/02/23 documented as of this encounter
--- OUTSIDE RECORDS SUMMARY | 2024-09-21 04:26 | XMS_ITS | Encounter Summary ---
Author Organization [facility] Address [address] [place] [address] Phone Care Team Providers Care Owner Operator Name Role Phone Cate Patel MD Primary Care Provider + [phone] Reason for Visit * Episode Based Medications (Routine) - Authorized Specialty Diagnoses / Procedures Referred By Contac t Referred To Contact Diagnoses Pituitary macroadenoma (HCC) Procedures CHG TOTAL CORTISOL Sarah Borges MD [address] [facility] [address] [place] [address] Phone: tel: fax: [facility] Infusion Therapy [address] [facility] 5th [place] [address] [place] [address] Phone: tel: fax: Referral ID Status Reason Start Date Expiration Date V isits Requested Visits Authorized [id number] Authorized 04/04/2020 10/05/2020 1 1 Encounter Details Date Type Department Care Team (Late st Contact Info) Description 04/24/2020 10:30 AM CDT Infusion [facility] Infusion Therapy [address] [facility] 5th [place] [address] [place] [address] Pituitary macroadenoma (CMS/HCC) (Primary Dx) Social History Tobacco Use Types [...] on file 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 No steroid. Baseline cortisol drawn followed by cosyntropin adminsitration - 10:18 30 minute lab draw: 10:48 60 minute lab draw: 11:18 Ambulated from infusion center without difficulty. Labs sent to [facility]. documented in this encounter Miscellaneous Notes * Addendum Note - Lilia Arenas CLT - 04/24/2020 10:30 AM CDTAddended by: LILIA ARENAS on: 04/24/2020 12:46 PM Modules accepted: Orders documented in this encounter Plan of Treatment Not on file documented as of this encounter Visit Diagnoses Diagnosis 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) documented in this encounter Administered Medications Inactive Administered Medications - up to 3 most recent administrations Medication Order MAR Action Action Date Dose Rate Site cosyntropin (ACTH,CORTISOL) injection 250 mcg 250 mcg, intravenous, Administer over 2 Minutes, Once, On 04/24/20 at 1045, For 1 dose, Reconstitute 250 mcg vial with 1 mL 0.9% sodium chloride and remove dose. For IV push, further dilute dose with equal volume 0.9% sodium chloride to a final concentration of 125 mcg/mLIndications:Pituitary macroadenoma (HCC) Given 04/24/2020 10:18 AM CDT 250 mcg documented in this encounter Orders Medications Ordered That Robert ht Not Have Been Administered Count Last Ordered Date First Ordered Date cosyntropin (ACTH,CORTISOL) injection 250 mcg 1 04/24/2020 Nursing Count Last Ordered Date First Orde red Date NURSING COMMUNICATION 1 04/24/2020 documented in this encounter Care Teams Owner Operator Relationship Specialty Start Date End Date Cate Patel MD PCP - General Family Practice 04/30/19 04/02/23 documented as of this encounter
--- OUTSIDE RECORDS SUMMARY | 2024-09-21 04:26 | XMS_ITS | Encounter Summary ---
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 Pt. Is aware to fax FSH and CMP labs for 05/25 appt. Sent Fax to request labs. * Telephone Encounter - Thania Ramon BS - 2019 4:20 PM CDT Need FSH and CMP labs before 05/25 appt * Telephone Encounter - Rosalba Eubanks RN - 2019 4:17 PM CDT 05-25-[address] Lema * Telephone Encounter - Thania Ramon BS - 2019 8:59 AM CDT Rcvd labs: IGF-1, Cortisol, LH, GH, Free T-4, ACTH, TSH and Prolactin labs. Need FSH and CMP labs * Telephone Encounter - Lottie Encarnacion CNA - 05/11/2019 8:12 AM CDT Per other phone call, pt. Is scheduled with GUILLERMINA on 05/25 at 10:40am. Lvm for pt. To call back. Waiting on all labs. * Telephone Encounter - Rosalba Eubanks RN - 05/03/2019 2:17 PM CDT Thanks * Telephone Encounter - Thania Ramon BS - 05/03/2019 2:12 PM CDT Thank you, she's scheduled with Dr. Borges on 05/28 as of now, but I'm trying to see if she could see the patient on same day as KR appt on 05/25 * Telephone Encounter - Rosalba Eubanks RN - 05/03/2019 2:[address] OK with Dr Lema and she will need to see Jony * Telephone Encounter - Thania Ramon BS - 05/03/2019 9:55 AM CDT CON-Pit tumor. Reg/intake updated, records/imaging are in Media. Waiting on all labs. Appt 05/25 @9:50AM (seeing if JS can see same day) Pt is aware to bring CD * Telephone Encounter - Thania Ramon BS - 04/30/2019 3:58 PM CDT Reg/intake updated, sent request to referrring office for all pit labs to be be ordered/completed. Tried to schedule pt with JS and F/A neurosurgeon but having technical issues with Epic. Tried calling patient back once Epic was fixed but the call dropped * Telephone Encounter - Thania Ramon BS - 04/30/2019 3:32 PM CDT Department of Neurological Surgery at [facility] Cranial Intake Sheet 04/30/19 Silvia Boss 1945 [id number] Cate Patel MD Referring Physician: Dr. Arreola (neurologist) Office Number: Office Fax: Caller Name: Patient Referred to: First available Consult: Yes Second Opinion: No Diagnosis: Pit tumor Requested time frame: Blurred Vision: No Loss of Sight: No Weakness on one side of body or a particular area: Yes -right side Patient can open both eyes equally: No Loss of bowel or bladder control: Yes - both bowel and bladder sometimes -sometimes has double vision -tired -headaches Duration of symptoms: 1 year Height: 5'1 Weight: 242lbs BMI: 45.7 Prior brain surgery: No Other surgeon seen: No Litigation: No MVA: No W/C: No Insurance: Medicare A/B and CSI Supplement Imaging Done: Yes MRI-04/26/2019 Imaging Location: [facility] Does the patient have any metal in their body? Yes -both knees, left hip, and hany and screws in right arm Appointment scheduled: 05/25/2019 @9:50AM with KR PT TO BRING CD * Telephone Encounter - Thania Ramon BS - 04/30/2019 7:58 AM CDT CON-Pit tumor. Rcvd notes, imaging and insurance card. Need reg/intake documented in this encounter Plan of Treatment Not on file documented as of this encounter Visit Diagnoses Not on filedocumented in this encounter Care Teams Retirement Officer Relationship Specialty Start Date End Date Cate Patel MD PCP - General Family Practice 04/30/19 04/02/23 documented as of this encounter
--- OUTSIDE RECORDS SUMMARY | 2024-09-21 04:26 | XMS_ITS | Encounter Summary ---
Author Organization [facility] Address [address] [facility] [address] [place] [address] Phone Care Team Providers Care Infusion Therapy Nurse Name Role Phone Cate Patel MD Primary Care Provider [phone] Reason for Visit * Consultation (Routine) - Closed Specialty Diagnoses / Procedures Referred By Yadiel t Referred To Contact Endocrinology Diagnoses Pituitary adenoma (HCC) Cate Patel MD Phone: tel: fax: [facility] (All Locations) Referral ID Status Reason Start Date Expiration Date V isits Requested Visits Authorized [id number] Closed Specialty Services Required 05/13/2019 11/21/2020 1 1 Encounter Details Date Type Department Care Team (Latest Contact Info) Description 05/25/2019 10:40 AM CDT Office Visit [facility] Endocrinology Metabolism and Lipid [address] [facility] 6th [place] [address] [place] [id number] Sarah Borges MD [address] [facility] [address] [place] [address] Pituitary macroadenoma (CMS/HCC) (Primary Dx); Pituitary adenoma (CMS/HCC); Prediabetes; MARY on CPAP; Low bone density; Essential hypertension; Primary hypothyroidism Social History Tobacco Use Types [...] on file 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 Gender Identity Not on file Sexual Orientation Not on file Occupation Industry Job Start Date Job End Date retired Not on file Not on file Not on file documented as of this encounter Last Filed Vital Signs Vital Sign Reading Time Taken Comments Blood Pressure 124/72 05/25/2019 10:10 AM CDT Pulse 84 05/25/2019 10:10 AM CDT Temperature - - Respiratory Rate - - Oxygen Saturation - - Inhaled Oxygen Concentration - - Weight 106.9 kg (235 lb 9.6 oz) 019 10:10 AM CDT Height 157.5 cm (5' 2 ) 05/25/2019 10:1 0 AM CDT Body Mass Index 43.09 05/25/2019 10:10 AM CDT documented in this encounter Patient Instructions * Patient Instructions* Sarah Borges MD - 05/25/2019 10:40 AM CDT Do a dexamethasone suppression test: You should take dexamethasone 1 mg (this was sent to your pharmacy) at 11:00 p.m. and go to the lab the next morning at 8:00 am to have your blood drawn for a cortisol and dexamethasone level Additional labs ordered to be done at the same time: IGF-1 and growth hormone PLEASE GO TO A [facility] documented in this encounter Ordered Prescriptions Prescription Sig Dispense Quantity Refills Last Filled Start Date End Date dexAMETHasone (DECADRON) 1 mg tablet take 1 mg at 11pm and go to the lab the next morning at 8am to have your blood drawn. 1 tablet 05/25/2019 documented in this encounter Progress Notes * Sarah Borges MD - 05/25/2019 10:40 AM CDT PATIENT NAME: Silvia Boss : 1945 05/25/2019 CHIEF COMPLAINT: Referred by Dr. Lema for a sellar mass PROBLEM LIST: Patient Active Problem List Diagnosis ??? MARY on CPAP ??? Osteoarthritis of multiple joints ??? Pituitary macroadenoma (CMS/HCC) ??? Prediabetes ??? Spinal stenosis of lumbar region ??? Thyroid nodule ??? Hypertension ??? Low bone density ??? Primary hypothyroidism ??? Anemia ??? Mixed hyperlipidemia ??? GERD (gastroesophageal reflux disease) HISTORY OF PRESENT ILLNESS: Ms. Boss is a 74 y.o. female with hx of HTN, HLD, sleep apnea, primary hypothyroidism and low bone density seen in consultation in our [facility]. Patient's local sales compensation analyst is Dr. Liliya Rai at [facility], seeing for thyroid Patient reports imaging was done as part [...] L (no creatinine reported) Hx HTN dx s, well controlled Dx with pre-diabetes x 10 years, never been on medication Has hx of thyroid nodules, says had INOCENCIO 2006, was put on thyroid medication after that (but denies hx of hyperthyroidism) Takes 75mcg daily (two years ago increased from 50mcg) Says has thyroid nodules being followed Had FNA benign Reports headaches for one year. Start in back of neck and go over to top of head Had bad one and saw PCP's assistant professor of life sciences who looked into her eyes and suggested MRI Eyes were fluttering Symptoms: Feels dizzy when bends over, new Has history of vertigo In 2000 had vertigo and went to ENT, had blockage in sinuses. Short medication in nose which zappedit, no problem since + chronic diarrhea eczema on skin + easy bruising, not new Says aches and doesn't have a lot of strength, thinks it could be knee replacements + stretch dutta on stomach recently lost 20 lbs on purpose +inc thirst + inc urination but doesn't urinate a lot at one time In 1979 had cyst on bladder. Ever since then can't hold urine and urinates small amounts ever since Wakes up 1 time to urinate at night Has had steroid injections in joints. Last one was 10/24 (in shoulder) Otherwise denies exogenous steroids Has sleep apnea, denies skin tags. Reports she has always had increased sweating. No change in ringsize or shoe size Hx of total hysterectomy 1991 for fibroid tumors Was on estrogen for 10 years recent DEXA showed low bone density (see below) Denies history of DVT/PE Family History: Not contributory PAST MEDICAL HISTORY: Past Medical History: Diagnosis [...] by mouth every 7 days, Disp: ,Rfl: ??? cholecalciferol (VITAMIN D-3) 50,000 unit capsule, [...] weeks or until resolved., Disp: , Rfl: FAMILY HISTORY: Family History Problem Relation Age [...] on file Occupational History ??? Occupation: retired Social Needs ??? Financial resource strain: Not on file ??? Food insecurity: Worry: Not on file Inability: Not on file ??? Transportation needs: Medical: Not on file Non-medical: Not on file Tobacco Use ??? Smoking status: Never Smoker ??? Smokeless tobacco: Never Used Substance and Sexual Activity ??? Alcohol use: Never Frequency: Never ??? Drug use: Never ??? Sexual activity: Not on file Lifestyle ??? Physical activity: Days per week: Not on file Minutes per session: Not on file ??? Stress: Not on file Relationships ??? Social connections: Talks on phone: Not on file Gets together: Not on file Attends christianity service: Not on file Active member of [...] Social History Narrative ??? Not on file retired from [employer] Lives with sister Two children REVIEW OF SYSTEMS: A comprehensive review of systems was negative. PHYSICAL EXAM: Vitals BP 124/72 Pulse 84 Ht 157.5 cm (5' 2 ) Wt 106.9 kg (235 lb 9.6 oz) BMI 43.09 kg/m?? Gen: overweight HEENT: sclera anicteric, EOMi, PERRLA, normal VF by confrontation Neck: no goiter, no palpable thyroid nodules, no cervical lymphadenopathy, no dorsocervical fat pad, No supraclavicular fullness CV: RRR, nl S1/S2, no m/r/g, no LE edema Lungs: CTA B, no c/w/r Abd: soft, NT, BS +, obese, Light colored stretch dutta Skin: moist, no rashes/lesions, normal texture Neuro: no tremors, 2 + patellar reflexes, +difficulty getting up from chair LABS: No results found for: HGBA1C No results found for: CHOLESTEROL, HDL, LDL, LDLCALC, CHOLESTEROL, HDL, LDL Lab Results Component Value Date CREATININE 1.2 12/07/2013 No results found for: TSH, FREET4, THYROIDAB No results found for: THYROGLOBULI, THGABINT No results found for: PROLACTIN, CORTISOL, ACTH, FSH, LH, ESTRADIOL, IGF1 No results found for: TESTOSTERONE, TESTOSTFREE Lab [...] 12/13/2013 MCV 91.3 12/07/2013 LABPLAT 339 12/07/2013 IMAGING: DEXA 02/15/19: COMPARISON:?12/30/2016, 06/22/2012 FINDINGS:?AP LUMBAR [...] for a hip fracture is 2.2 % ASSESSMENT: 74-year-old female with multiple medical problems including hypertension, hyperlipidemia, pre diabetes, sleep apnea, and low bone density found to have a sellar mass on imaging done as part of an evaluation for headaches. Patient has seen Dr. Lema who recommends a pituitary protocol MRIwith contrast. This is been ordered to be done in July. I discussed the normal function of the pituitary with patient. Lab work thus far shows a slightly elevated IGF 1 and elevated 24 urine free cortisol although no creatinine was done with the specimen that I could find. I recommended that we repeat her IGF-1 at [facility] which has the most reliable reference ranges and get a low-dose dexamethasone suppression test to rule out Lynda's disease. Hormonal Status Thyroid: TSH/FT4 normal, on levothyroxine for primary hypothyroidism GH: rechecking IGF-1 as above. No specific signs or symptoms of acromegaly but could be mild HPA axis: recommend screen for CD with LDDST 24 hour UFC slightly elevated without Cr Gonadal: menopausal Prolactin normal PLAN: -LDDST: patient to take 1 mg of dexamethasone at 11pm and have an 8am cortisol and dexamethasone level Additional labs ordered: IGF-1, growth hormone ([facility]) -F/U MRI 07/[address] Lema Problem List Nervous Pituitary macroadenoma (CMS/HCC) - Primary Relevant Orders Cortisol Dexamethasone Insulin-like growth factor (IGF-1) Growth hormone Respiratory MARY on CPAP Circulatory Hypertension Musculoskeletal Low bone density Endocrine/Metabolic Primary hypothyroidism Relevant Medications dexAMETHasone (DECADRON) 1 mg tablet Other Prediabetes RTC 07/24 (coordinate with Dr. Lema) Sarah Borges MD [facility] records management associate and Neurological Surgery Division Endocrinology, Metabolism and Lipid Research [facility] [address] [facility], [address] [place] [address] P: [phone] F: [phone] documented in this encounter Plan of Treatment Not on file documented as of this encounter Procedures Procedure Name Priority Date/Time Associated Diagnosis Comments DEXAMETHASONE Routine 05/28/2019 8:08 AM CDT Pituitary macroadenoma (CMS/HCC) INSULIN-LIKE GROWTH FACTOR Routine 05/28/2019 8:08 AM CDT Pituitary macroadenoma (CMS/HCC) GROWTH HORMONE Routine 05/28/2019 8:08 AM CDT Pituitary macroadenoma (CMS/HCC) CORTISOL Routine 05/28/2019 8:08 AM CDT Pituitary macroadenoma (CMS/HCC) documented in this encounter Results * Growth hormone (05/28/2019 8:08 AM CDT) Growth hormone 1.6 <=7.1 ng/mL [facility] [place] Comment: Because of a pulsatile secretion pattern, random (unstimulated) growth hormone (GH) levels are frequently undetectable in normal children and adults and are not reliable for diagnosing GH deficiency. Regarding suppression tests, failure to suppress GH is diagnostic of acromegaly. Typical GH response in healthy subjects: Using the glucose tolerance (GH Suppression) test, acromegaly is ruled out if the patient's GH level is <1.0 ng/mL at any point in the timed sequence. [Tyler Xiao, Colin Sung ER, Herminia S, et al. Acromegaly: an Endocrine Society Clinical Practice Guideline. J Clin Endocrinol Metab 2014; 99: 7490-2159]. Using GH stimulation testing, the following results at any point in the timed sequence makes GH deficiency unlikely: Adults (> or = 20 Years): ??Insulin Hypoglycemia ?? > or = 5.1 ng/mL ??Arginine/GHRH ?> or = 4.1 ng/mL ??Glucagon ? > or = 3.0 ng/mL Children (< 20 Years): ??All Stimulation Tests ??> or = 10.0 ng/mL ? Blood specimen (specimen) 05/28/2019 8:08 AM CDT 05/28/2019 8:09 AM CDT Narrative [facility] - 06/02/2019 2:54 AM CDT FASTING:YES FASTING: YES Resulting Agency Comment Performing Organization Information: ?Site ID: [id number] ?Name: [facility] ?Address: [address] [place] [address] ?Director: Carmelo Jackson M.D.,PhD Sarah Borges MD LAB BLOOD ORDERABLES Final Result [facility] [place], [place] * Insulin-like growth factor (IGF-1) (05/28/2019 8:08 AM CDT) [facility] IGF 1, LC/MS 244 34 - 245 ng/mL [facility] Z SCORE (FEMALE) 1.9 -2.0 - 2.0 SD [facility] Comment: This test was developed and its analytical performance characteristics have been determined by [facility]. It has not been cleared or approved by FDA. This assay has been validated pursuant to the CLIA regulations and is used for clinical purposes. Blood specimen (specimen) 05/28/2019 8:08 AM CDT 05/28/2019 8:09 AM CDT Narrative [facility] - 06/02/2019 2:54 AM CDT FASTING:YES FASTING: YES Resulting Agency Comment Performing Organization Information: ?Site ID: [id number] ?Name: [facility], ?Address: [id number] [place] [phone] ?Director: Mary Ortiz MD,PhD,ARTURO Sarah Borges MD LAB BLOOD ORDERABLES Final Result Performing Organization Address [facility] de Phone Number [facility] [place], [place] * Dexamethasone (05/28/2019 8:08 AM CDT) DEXAMETHASONE 522 ng/dL [facility] Comment: Reference Ranges for Dexamethasone: Baseline: Less than 20 ng/dL 1 mg dexamethasone overnight: 180-550 ng/dL (8:00-10:00 AM) This test was developed and its analytical performance characteristics have been determined by [facility]. It has not been cleared or approved by FDA. This assay has been validated pursuant to the CLIA regulations and is used for clinical purposes. Blood specimen (specimen) 05/28/2019 8:08 AM CDT 05/28/2019 8:09 AM CDT Narrative [facility] - 06/02/2019 2:54 AM CDT FASTING:YES FASTING: YES Resulting Agency Comment Performing Organization Information: ?Site ID: ?Name: [facility], ?Address: [address] [place] [phone] ?Director: Mary Ortiz MD,PhD,ARTURO Sarah Borges MD LAB BLOOD ORDERABLES Final Result Performing Organization Address [facility] Co de Phone Number [facility] [place], [place] * (ABNORMAL) Cortisol (05/28/2019 8:08 AM CDT) Cortisol 1.7(L) mcg/dL [facility] [place] Comment: Reference Range: For 8 a.m.(7-9 a.m.) Specimen: 4.0-22.0 Reference Range: For 4 p.m.(3-5 p.m.) Specimen: 3.0-17.0 ??* Please interpret above results accordingly * Blood specimen (specimen) 05/28/2019 8:08 AM CDT 05/28/2019 8:09 AM CDT Narrative [facility] - 06/02/2019 2:54 AM CDT FASTING:YES FASTING: YES Resulting Agency Comment Performing Organization Information: ?Site ID: [id number] ?Name: [facility] ?Address: [address] [phone] ?Director: Timothy Garcia D.O., MPH Sarah Borges MD LAB BLOOD ORDERABLES Final Result [facility] [place] documented in this encounter Visit Diagnoses Diagnosis 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) Pituitary adenoma (HCC) Benign neoplasm of pituitary gland and craniopharyngeal duct (pouch) Prediabetes Other abnormal glucose MARY on CPAP Low bone density Essential hypertension Unspecified essential hypertension Primary hypothyroidism Unspecified hypothyroidism documented in this encounter Orders Outpatient Referral Count Last Ordered Date Fir st Ordered Date AMB REFERRAL TO ENDOCRINOLOGY 1 05/25/2019 documented in this encounter Care Teams Infusion Therapy Nurse Relationship Specialty Start Date End Date Cate Patel MD PCP - General Family Practice 04/30/19 04/02/23 documented as of this encounter
--- OUTSIDE RECORDS SUMMARY | 2024-09-21 04:26 | XMS_ITS | Encounter Summary ---
Author Organization [facility] Address [address] [place] [address] Phone Care Team Providers Care Childcare Center Director Name Role Phone Cate Patel MD Primary Care Provider [phone] Reason for Referral * Diagnostic Imaging (Routine) - Closed Specialty Diagnoses / Procedures Referred By Rickeyac angie Referred To Contact Radiology Diagnoses Pituitary tumor Procedures MR Pituitary Brain W WO Contrast Ole Lema MD Phone: tel: fax: [facility] Radiology Referral ID Status Reason Start Date Expiration Date Visits Re quested Visits Authorized [id number] Closed 07/06/2019 01/14/2021 1 1 Encounter Details Date Type Department Care Team (Late st Contact Info) Description 07/06/2019 11:30 AM CDT Office Visit [facility] Neurosurgery [address] 6[address] [place] [address] [place] [address] Ole Lema MD [address] [facility] [address] [address] [place] [address] Pituitary tumor (Primary Dx) Social [...] on file 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 Gender Identity Not on file Sexual Orientation Not on file Occupation Industry Job Start Date Job End Date retired Not on file Not on file Not on file documented as of this encounter Last Filed Vital Signs Vital Sign Reading Time Taken Comments Blood Pressure 128/69 07/06/2019 11:29 AM CDT Pulse 91 07/06/2019 11:29 AM CDT Temperature - - Respiratory Rate - - Oxygen Saturation - - Inhaled Oxygen Concentration - - Weight 108.1 kg (238 lb 6.4 oz) 019 11:29 AM CDT Height 157.5 cm (5' 2 ) 07/06/2019 11:2 9 AM CDT Body Mass Index 43.6 07/06/2019 11:29 AM CDT documented in this encounter Progress Notes * Ole Lema MD - 07/06/2019 11:30 AM CDT RETURN VISIT Subjective HISTORY OF PRESENT ILLNESS This is a 74-year-old female be seen in the Neurosurgery office for an abnormality involving the pituitary noted on MR imaging. The patient reportedly underwent a MRI scans as part evaluation to address her headaches. She denied associated visual changes with headaches. She was taking ibuprofen over the past year but had discontinued medications secondary to its affecting her kidneys. She was started on treatment with Topamax and noticed her headaches are much improved. Her thinking may be slightly slower with the Topamax. ?? Patient had MR imaging her brain done on 04/12/2019 and again on 04/28/2019. Her initial MRI scan was done with gadolinium in showed a left-sided lesion along the sella and ipsilateral cavernous sinus that could represent a pituitary adenoma. It was recommended she have further imaging with attention to the pituitary region. Unfortunately the patient's MRI scan done on 04/28/2019 with a pituitaryprotocol was done without contrast as her creatinine was marginally elevated. The follow-up study again showed a question of a expansile mass asymmetric to the left side of the sella with inferior extension to the clivus of on certain etiology. Patient came to office today after undergoing follow-up MR imaging of the brain with a dynamic pituitary study. VITAL SIGNS BP 128/69 Pulse 91 Ht 157.5 cm (5' 2 ) Wt 108.1 kg (238 lb 6.4 oz) BMI 43.60 kg/m?? ALLERGIES She has No Known Allergies. MEDICATIONS Current Outpatient Medications: ??? aspirin-calcium carbonate 81 [...] 12 DOSES, Disp: , Rfl: 0 ??? CONTRAVE 8-90 mg tablet extended release, [...] mouth daily, Disp: , Rfl: 3 ??? topiramate (TOPAMAX) 25 mg tablet, Take [...] mouth every 7 days, Disp: ,Rfl: ??? citalopram (CeleXA) 20 mg tablet, TAKE 1 TABLET BY MOUTH ONCE DAILY, Disp: , Rfl: ??? spironolactone (ALDACTONE) 25 mg tablet, TAKE 1 TABLET BY MOUTH ONCE DAILY, Disp: , Rfl: ??? spironolactone (ALDACTONE) 25 mg tablet, Take 25 mg by mouth daily, Disp: , Rfl: 1 No current facility-administered medications for this visit. Objective PHYSICAL EXAM Patient was alert. She was oriented. Speech was clear. Mental status appeared baseline. Cranial nerve exam showed the patient is pupils to be equal reactive to light. Extraocular movements were full.Face was symmetrical. Tongue palate midline. Motor sensory testing appeared nonfocal. Reflexes symmetric. Gait was stable. REVIEW OF IMAGING MRI imaging of the brain done on 07/06/2019 showed the followin. Heterogeneous sellar mass inseparable from the pituitary gland, involving the clivus with lateral extension into the left cavernous sinus. Approximately 180 degree abutment of the left internal carotid, without evidence for encasement, mass effect or luminal narrowing. The appearance, signal characteristics and size are stable from 04/26/2019. Differential diagnosis favor pituitary adenoma or meningioma. Signal characteristics do not favor chordoma or chondrosarcoma. ?? 2. Normal MRA. ?? ASSESSMENT/PLAN The patient was told of the above findings noted on her MR imaging done earlier today. It was felt the lesion noted on her prior MRI scan done on 04/26/2019 appeared stable. The differential diagnosis as outlined by the neuroradiologist was discussed with the patient. Patient was told of the optionof surgery with biopsy and debulking of the lesion. It was felt that her lesion was primarily asymptomatic at this time. Given the patient's age and co-morbidities she wished to avoid surgery if possible. I told her it would be reasonable to obtain serial MR imaging studies to assess the lesion forpossible growth. If it shows signs of growth she may need to re-consider surgery with potential biopsy or debulking of the lesion. The patient wished to proceed with surveillance MR imaging studies as recommended. She was asked to return here for followup about 6 months. She is to have an MRI scan of her brain with a dynamic pituitary study repeated at that time. Ole Lema MD documented in this encounter Plan of Treatment Not on file documented as of this encounter Results * MR Pituitary Brain W WO Contrast (04/04/2020 7:26 AM CDT) Anatomical Region Laterality Modality Head and Neck N/A Magnetic Resonan ce 04/04/2020 9:40 AM CDT Impressions 04/04/2020 6:14 PM CDT 1. ??A mildly enhancing lesion along the left floor of the sella is identified with abutment of the left aspect of the pituitary with extension into the sphenoid sinus and left cavernous sinus with remodeling of the clivus. ??This could represent a pituitary adenoma. However, given location alternative pathology such as primary sinonasal lesion arising from the sphenoid ??and less likely clival lesion should be considered. ??Recommend a CT sinus for assessment of bony relationships and the lesion density. ??This has not significantly changed when compared to the previous exams. Electronically signed by: Peter Tidwell M.D. Narrative 04/04/2020 6:14 PM CDT EXAMINATION: Magnetic resonance imaging (MRI) of the brain and brainstem without and with contrast. HISTORY: 74-year-old presenting after MRI from outside imaging demonstrating abnormal pituitary/sella. ??Patient initially presented with headaches and visual changes. TECHNIQUE: Multiplanar multi-weighted MRI of the brain and brainstem was performed without and with ??intravenous contrast using the pituitary protocol. This included acquisitions showing dynamic contrast enhancement of the sella turcica in the coronal plane and a post-contrast T1-Stealth sequence. Contrast information: 20 mL Dotarem COMPARISON: ??MRI dated 07/06/2019 and 04/26/2019. FINDINGS: There is a T1 isointense lesion involving the inferior aspect of the left sella that appear to abut with the pituitary (image 12 on series #3) that demonstrates extension inferiorly to remodel the clivus and more anteriorly into the sphenoid sinus abutting the septum. ??This also appears to abut the left cavernous sinus with suggestion of extension into the venous sulcus of the carotid within the inferior aspect of the cavernous sinus with approximately 180 degrees abutment of the carotid. ??The T2 signal fluid does not appear to be decreased. This lesion is slightly hyperintense on T2. ??This lesion measures 1.8 x 1.3 cm (AP X cc) on sagittal postcontrast series #10 image 85. The lesion is adjacent to the anterior lateral aspect of Meckel's cave and foramen ovale but does not appear to involve either. ??The appearance of mild thickening of the cranial nerve V3 on coronal postcontrast is not established on any other sequence and thus is probably artifactual or slice related. ??This lesion demonstrates a degree of enhancement but is less pronounced than the pituitary tissue. ??The optic chiasm and orbits are normal. ??The infundibulum is midline. The scalp and calvarium are normal. The superior sagittal sinus demonstrates normal venous flow. The corpus callosum is normal in shape and signal intensity. The posterior fossa is unremarkable. The brainstem and craniocervical junction are unremarkable. Mild brain volume loss is present. ??Mild nonspecific periventricular and deep white matter T2 hyperintensities are identified. The paranasal sinuses are normal. The visualized portions of the mastoids are unremarkable. The orbits appear normal. Normal flow voids are demonstrated in the carotid arteries and basilar artery. Procedure Note Peter Tidwell MD - 04/04/2020 EXAMINATION: Magnetic resonance imaging (MRI) of the brain and brainstem without and with contrast. HISTORY: 74-year-old presenting after MRI from outside imaging demonstrating abnormal pituitary/sella. Patient initially presented with headaches and visual changes. TECHNIQUE: Multiplanar multi-weighted MRI of the brain and brainstem was performed without and with intravenous contrast using the pituitary protocol. This included acquisitions showing dynamic contrast enhancement of the sella turcica in the coronal plane and a post-contrast T1-Stealth sequence. Contrast information: 20 mL Dotarem COMPARISON: MRI dated 07/06/2019 and 04/26/2019. FINDINGS: There is a T1 isointense lesion involving the inferior aspect of the left sella that appear to abut with the pituitary (image 12 on series #3) that demonstrates extension inferiorly to remodel the clivus and more anteriorly into the sphenoid sinus abutting the septum. This also appears to abut the left cavernous sinus with suggestion of extension into the venous sulcus of the carotid within the inferior aspect of the cavernous sinus with approximately 180 degrees abutment of the carotid. The T2 signal fluid does not appear to be decreased. This lesion is slightly hyperintense on T2. This lesion measures 1.8 x 1.3 cm (AP X cc) on sagittal postcontrast series #10 image 85. The lesion is adjacent to the anterior lateral aspect of Meckel's cave and foramen ovale but does not appear to involve either. The appearance of mild thickening of the cranial nerve V3 on coronal postcontrast is not established on any other sequence and thus is probably artifactual or slice related. This lesion demonstrates a degree of enhancement but is less pronounced than the pituitary tissue. The optic chiasm and orbits are normal. The infundibulum is midline. The scalp and calvarium are normal. The superior sagittal sinus demonstrates normal venous flow. The corpus callosum is normal in shape and signal intensity. The posterior fossa is unremarkable. The brainstem and craniocervical junction are unremarkable. Mild brain volume loss is present. Mild nonspecific periventricular and deep white matter T2 hyperintensities are identified. The paranasal sinuses are normal. The visualized portions of the mastoids are unremarkable. The orbits appear normal. Normal flow voids are demonstrated in the carotid arteries and basilar artery. IMPRESSION: 1. A mildly enhancing lesion along the left floor of the sella is identified with abutment of the left aspect of the pituitary with extension into the sphenoid sinus and left cavernous sinus with remodeling of the clivus. 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 However, given location alternative pathology such as primary sinonasal lesion arising from the sphenoid and less likely clival lesion should be considered. Recommend a CT sinus for assessment of bony relationships and the lesion density. This has not significantly changed when compared to the previous exams. Electronically signed by: Peter Tidwell M.D. Ole Lema MD IMG MRI PROCEDURES Final Result documented in this encounter Visit Diagnoses Diagnosis Pituitary tumor- Primary Neoplasm of unspecified nature of endocrine glands and other parts of nervous system Pituitary tumor Neoplasm of unspecified nature of endocrine glands and other parts of nervous system documented in this encounter Care Teams Childcare Center Director Relationship Specialty Start Date End Date Cate Patel MD PCP - General Family Practice 04/30/19 04/02/23 documented as of this encounter
--- OUTSIDE RECORDS SUMMARY | 2024-09-21 04:26 | XMS_ITS | Encounter Summary ---
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 1 TABLET TWICE DAILY [...] Procedure Name Priority Date/Time Associated Diagnosis Comments NEURO CT MR OUTSIDE REFERENCE Routine 05/28/2019 11:31 AM CDT Diagnosis unknown documented in this encounter Results * Neuro CT MR Outside Reference (05/28/2019 11:31 AM CDT) Impressions [facility] - 05/28/2019 11:31 AM CDT These images are for Reference purposes only and have not been reviewed by [facility] Radiology. ??There will be no report generated by a [facility] Radiologist. Narrative [facility] - 05/28/2019 11:31 AM CDT EXAMINATION: ??Images For Reference Purposes Only us Ole Lema MD IMG CT PROCEDURES Final Result [facility] documented in this encounter Visit Diagnoses Not on filedocumented in this encounter Care Teams Stevedore Dock Relationship Specialty Start Date End Date Cate Patel MD PCP - General Family Practice 04/30/19 04/02/23 documented as of this encounter
--- OUTSIDE RECORDS SUMMARY | 2024-09-21 04:26 | XMS_ITS | Encounter Summary ---
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 JS documented in this encounter Plan of Treatment Not on file documented as of this encounter Procedures Procedure Name Priority Date/Time Associated Diagnosis Comments COSYNTROPIN STIMULATION TEST Timed 04/24/2020 11:18 AM CDT Pituitary macroadenoma (CMS/HCC) CORTISOL 60 MIN Timed 04/24/2020 11:18 AM CDT Pituitary macroadenoma (CMS/HCC) CORTISOL 30 MIN Timed 04/24/2020 10:48 AM CDT Pituitary macroadenoma (CMS/HCC) CORTISOL BASELINE Timed 04/24/2020 10: 18 AM CDT Pituitary macroadenoma (CMS/HCC) documented in this encounter Results * Cortisol 60 min (04/24/2020 11:18 AM CDT) Cortisol, 60 min 28.2 mcg/dL BRIELLE SANCHEZ Comment: Interpretive Data Maximal plasma cortisol ??>18 - 20 mcg/dL (micrograms/deciliters). ??Some criteria also require an increment >7 mcg/dL. ??Lack of normal response can be seen in both primary and secondary adrenal failure. ??Some patients with secondary adrenal failure have a normal response to cortrosyn. ??If pituitary disease is known or strongly suspected (e.g. after pituitary surgery), the cortrosyn test alone should not be relied on to exclude adrenal failure. Current interpretive data was last revised 2014. Blood specimen (specimen) 04/24/2020 11:18 AM CDT 04/24/2020 12:53 PM CDT Narrative BRIELLE NAVAS - 04/24/2020 1:57 PM CDT Obtain pre, 30 minutes, and 60 minutes post cosyntropin adminstration. us Sarah Borges MD LAB BLOOD ORDERABLES Final Result BRIELLE SANCHEZ [facility] Department [place] [address] * Cortisol 30 min (04/24/2020 10:48 AM CDT) Cortisol, 30 min 24.3 mcg/dL BRIELLE SANCHEZ Comment: Interpretive Data Maximal plasma cortisol ??>18 - 20 mcg/dL (micrograms/deciliters). ??Some criteria also require an increment >7 mcg/dL. ??Lack of normal response can be seen in both primary and secondary adrenal failure. ??Some patients with secondary adrenal failure have a normal response to cortrosyn. ??If pituitary disease is known or strongly suspected (e.g. after pituitary surgery), the cortrosyn test alone should not be relied on to exclude adrenal failure. Current interpretive data was last revised 2014. Blood specimen (specimen) 04/24/2020 10:48 AM CDT 04/24/2020 12:53 PM CDT Narrative [facility] - 04/24/2020 1:54 PM CDT Obtain pre, 30 minutes, and 60 minutes post cosyntropin adminstration. Sarah Borges MD LAB BLOOD ORDERABLES Final Result Performing Organization Address [facility] Co de Phone Number [facility] [email or web address] [place] [address] * Cortisol baseline (04/24/2020 10:18 AM CDT) Cortisol, base 12.3 mcg/dL [facility] Blood specimen (specimen) 04/24/2020 10:18 AM CDT 04/24/2020 12:53 PM CDT Narrative [facility] - 04/24/2020 1:54 PM CDT Obtain pre, 30 minutes, and 60 minutes post cosyntropin adminstration. Sarah Borges MD LAB BLOOD ORDERABLES Final Result Performing Organization Address [facility] Co de Phone Number [facility] [email or web address] [address] documented in this encounter Visit Diagnoses Diagnosis Pituitary macroadenoma (HCC) Benign neoplasm of pituitary gland and craniopharyngeal duct (pouch) documented in this encounter Care Teams Account Services Associate Relationship Specialty Start Date End Date Cate Patel MD PCP - General Family Practice 04/30/19 04/02/23 documented as of this encounter
--- OUTSIDE RECORDS SUMMARY | 2024-09-21 04:26 | XMS_ITS | Encounter Summary ---
Author Organization [facility] Address [address] [place] [address] Phone Care Team Providers Care Trailer Truck Driver Name Role Phone Cate Patel MD Primary Care Provider [phone] Encounter Details Date Type Department Care Team (Late st Contact Info) Description 05/21/2019 Orders Only [facility] Neurosurgery [address] [facility] [address] [facility] [address]th [place] [address] [place] [address] Dayami Alfredo, A Social History Tobacco Use Types Packs/Day Years Used Date Smoking Tobacco: Never Assessed AUDIT-C Answer Date Recorded Frequency of Alcohol Consumption Never 05/25/2019 Average Number of Drinks Not on file 019 Frequency of Binge Drinking Not on file 05/07 Comments Unknown Sex and Gender Information Value Date Recorded Sex Assigned at Not on file 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 triamcinolone (KENALOG) 0.1 % cream Application Site: hands Apply BID to affected area x 2 weeks or until resolved. 09/25/2018 topiramate (TOPAMAX) 25 mg tablet Take 1 tablet (25 mg total) by mouth 2 (two) times a day 1 04/27/2019 topiramate (TOPAMAX) 25 mg tablet Take 1 tablet (25 mg total) by mouth 2 times daily 03/23/2019 spironolactone (ALDACTONE) 25 mg tablet Take 1 tablet (25 mg total) by mouth daily 1 04/13/2019 spironolactone (ALDACTONE) 25 mg tablet TAKE 1 TABLET BY MOUTH ONCE DAILY 04/09/2019 omeprazole (PriLOSEC) 40 mg capsule Take 1 capsule (40 mg total) by mouth daily 3 03/24/2019 omeprazole (PriLOSEC) 40 mg capsule Take 1 capsule (40 mg total) by mouth daily 09/25/2018 CONTRAVE 8-90 mg tablet extended release TAKE 1 TABLET BY MOUTH IN THE MORING FOR 1 WEEK. 1 TABLET TWICE DAILY MORNING AND EVENING FOR 2ND WEEK. 2 TABLETS IN THE MORNING AND 1 TABLE 2 03/24/2019 naltrexone-bupro pion (CONTRAVE) 8-90 mg tablet extended release Initial, 1 tablet orally once daily in the morning for week 1; then 1 tablet twice daily, morning and evening, for week 2; then 2 tablets in the morning and 1 tablet in the evening for week 3 Maintenance (week 4 and thereafter), 2 tablets orally twice daily, morning and evening 09/03/2018 melatonin 5 mg capsule Take 5 mg by mouth nightly loperamide (IMODIUM A-D) 2 mg tablet Take 1 tablet (2 mg total) by mouth daily as needed lisinopril-hydro CHLOROthiazide (PRINZIDE,ZESTOR ETIC) 20-25 mg per tablet TAKE 1 TABLET BY MOUTH ONCE DAILY 04/09/2019 levothyroxine (SYNTHROID, LEVOTHROID) 75 mcg tablet TAKE 1 TABLET BY MOUTH ONCE DAILY 04/09/2019 CARTIA XT 240 mg 24 hr capsule Take 1 capsule (240 mg total) by mouth daily 3 04/09/2019 dilTIAZem XR (CARTIA XT) 240 mg 24 hr capsule TAKE 1 CAPSULE BY MOUTH ONCE DAILY 04/09/2019 citalopram (CeleXA) 20 mg tablet TAKE 1 TABLET BY MOUTH ONCE DAILY 02/04/2019 cholecalciferol (VITAMIN D-3) 50,000 unit capsule TAKE 1 CAPSULE BY MOUTH ONCE A WEEK FOR 12 DOSES 0 03/12/2019 cholecalciferol (VITAMIN D-3) 50,000 unit capsule Take 1 tablet by mouth every 7 days 03/12/2019 atorvastatin (LIPITOR) 10 mg tablet TAKE ONE TABLET BY MOUTH ONCE DAILY AT BEDTIME 02/04/2019 aspirin-calcium carbonate 81 mg-300 mg calcium(777 mg) tablet Take 81 mg by mouth daily multivitamin with minerals tablet Take by mouth calcium carbonate (CALCI-CHEW ORAL) Take by mouth added in this encounter Care Teams Trailer Truck Driver Relationship Specialty Start Date End Date Cate Patel MD PCP - General Family Practice 04/30/19 04/02/23 documented as of this encounter
--- OUTSIDE RECORDS SUMMARY | 2024-09-21 04:26 | XMS_ITS | Encounter Summary ---
Author Organization [facility] Address [address] [place] [address] Phone Care Team Providers Care Sampling Theory Teacher Name Role Phone Cate Patel MD Primary Care Provider [phone] Encounter Details Date Type Department Care Team (Late st Contact Info) Description 04/06/2020 Orders Only [facility] Endocrinology Metabolism and Lipid [address] [facility] Advanced Medicine 13th [place] [address] [place] [id number] Sarah Borges MD [address] 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
--- OUTSIDE RECORDS SUMMARY | 2024-09-21 04:26 | XMS_ITS | Encounter Summary ---
Author Organization [facility] Address [address] [place] [address] Care Team Providers Care Administrative Library Assistant Name Role Phone Unavailable Primary Care Provider Unavailabl e Encounter Details Date Type Department Care Team (Late st Contact Info) Description 07/21/2009 7:38 AM CDT - 07/21/2009 11:59 PM CDT Hospital Encounter [facility] Tod Lemus MD [address] [place] [address] [address] [place] [address] Anorectal polyp; History of colonic polyps; Obesity; Esophageal reflux; Essential hypertension; Shortness of breath Social History Tobacco Use Types Packs/Day Years Used Date Smoking Tobacco: Never Assessed Comments Unknown Sex and Gender Information Value Date Recorded Sex Assigned at Not on file 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
--- OUTSIDE RECORDS SUMMARY | 2024-09-21 04:26 | XMS_ITS | Encounter Summary ---
Author Organization [facility] Address [address] [place] [address] Phone Care Team Providers Care Model And Mold Maker Name Role Phone Cate Patel MD Primary Care Provider + [phone] Encounter Details Date Type Department Care Team (Late st Contact Info) Description 04/04/2020 Orders Only [facility] Neurosurgery [address] [facility] Advanced Medicine 6th [place] [address] [place] [phone] Ole Lema MD [address] [facility] [address] [place] [address] Pituitary macroadenoma (CMS/HCC) (Primary Dx) Social History [...] on file 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
--- OUTSIDE RECORDS SUMMARY | 2024-09-21 04:26 | XMS_ITS | Encounter Summary ---
Author Organization [facility] Address [address] [place] [address] Phone Care Team Providers Care Technical Service Rep Name Role Phone Cate Patel MD Primary Care Provider [phone] Encounter Details Date Type Department Care Team (Latest Contact Info) Description 04/04/2020 12:40 PM CDT Telemedicine [facility] Endocrinology Metabolism and Lipid [address] [facility] Advanced Medicine 6th [place] [address] [place] [address] Sarah Borges MD [address] [facility] [address] [place] [address] Pituitary macroadenoma (CMS/HCC) (Primary Dx); Primary hypothyroidism Social History Tobacco [...] on file 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 Rai as scheduled documented in this encounter Progress Notes * Anna Hernandez MD - 04/04/2020 12:40 PM CDT PATIENT NAME: Silvia Boss : 1945 04/03/2020 CHIEF COMPLAINT: follow up for a sellar mass PROBLEM LIST: [...] hypothyroidism and low bone density seen in follow up in our [facility]. Patient's local instructional design specialist is Dr. Liliya Rai at [facility], seeing [...] lateral extension into the left cavernous sinus. MRI 03/25/2020: FINDINGS: There is a T1 isointense lesion involving the inferior aspect of the left sella that appear to be in continuation with the pituitary that demonstrates extension inferiorly to remodel the clivus and more anteriorly into the sphenoid sinus abutting the septum. This also appears to abut the left cavernous sinus with suggestion of extension into the venous sulcus of the carotid within the inferior aspect of the cavernous sinus. This lesion is slightly hyperintense on T2. This lesion measures 1.8 x1.3 cm (AP X cc). The lesion is adjacent to the anterior lateral aspect of Meckel's cave and foramen ovale but does not appear to involve either. The optic chiasm and orbits are normal. The infundibulum is midline. 05/05/2019: Acth 23, prolactin 16.5, TSH 2.37, free T4 1.2, 9:00 am cortisol 13, FSH 62.8, LH 29.7,IGF-1 214 (34-187), growth hormone 1.51, Twenty-four urine free cortisol 50 (3.5-45), 2.475 L (no creatinine reported) [facility] 05/28/2019: IGF-1 244, dex suppression 8AM cortisol 1.7, dex level 522 Hx HTN dx , well controlled Dx with pre-diabetes x 10 years, never been on medication Has hx of thyroid nodules, says had PAINTER 2006, was put on thyroid medication after that (but denies hx of hyperthyroidism) Takes 75mcg daily (two years ago increased from 50mcg) Says has thyroid nodules being followed Had FNA benign Continues to have headaches which have karmen ongoing for at least the past year. Start in back of neck and go over to top of head Had bad one and saw PCP's research lab assistant who looked into her eyes and suggested MRI Eyes were fluttering Symptoms: Late at night when watching TV in the dark, has double vision for a few seconds then goes away Reports that she had VF test 09/2019 which was normal. Has report at home Feels dizzy when bends over Has history of vertigo In 2000 had vertigo and went to ENT, had blockage in sinuses. Short medication in nose which zappedit, no problem since Previously had some diarrhea, not occurring recently eczema on skin + easy bruising, not [...] file Gets together: Not on file Attends pentecostalism service: Not on file Active member of [...] Narrative ??? Not on file retired from [employer] Lives with sister Two children REVIEW OF SYSTEMS: A comprehensive review of systems was negative. PHYSICAL EXAM: Ht: 5'2'', Wt: 240 lbs, BP 140/84 General Appearance: alert, cooperative, in no acute distress, appears stated age, well-developed, well-nourished, sitting comfortably in chair Neck: no swelling, no supraclavicular fullness, no dorsocervical fat pad Eyes: EOMI, conjunctiva clear Lungs: respirations non-labored, equal chest movements bilaterally Cardiovascular: No LE edema Abdominal: obese, non-distended, light colored stretch dutta Neurologic: alert, speech fluent, comprehension intact, moving all extremities, no tremors Psychologic: cooperative, appropriate affect and mood LABS: No results found for: HGBA1C No results found for: CHOLESTEROL, HDL, LDL, LDLCALC, CHOLESTEROL, HDL, LDL Lab Results Component Value Date CREATININE 1.2 12/07/2013 No results found for: TSH, FREET4, THYROIDAB No results found for: THYROGLOBULI, THGABINT Lab Results Component Value Date CORTISOL 1.7 (L) 05/28/2019 No results found for: TESTOSTERONE, TESTOSTFREE Lab [...] MCV 91.3 12/07/2013 LABPLAT 339 12/07/2013 IMAGING: MRI Brain (07/2019): 1. Heterogeneous sellar mass inseparable from the pituitary gland, involving the clivus with lateral extension into the left cavernous sinus. Approximately 180 degree abutment of the left internal carotid, without evidence for encasement, mass effect or luminal narrowing. The appearance, signal characteristics and size are stable from 04/26/2019. Differential diagnosis favor pituitary adenoma or meningioma. Signal characteristics do not favor chordoma or chondrosarcoma. DEXA 02/15/19: COMPARISON:?12/30/2016, 06/22/2012 FINDINGS:?AP LUMBAR SPINE [...] evaluation for headaches. Patient has seen Dr. Lema. I discussed the normal function of the pituitary with patient. Initial labs demonstrated slightly elevated IGF-1 and elevated 24 urine free cortisol although no creatinine was done with the specimen that I could find. Repeat IGF-1 completed at [facility] which has the most reliable reference ranges was normal and low-dose dexamethasone suppression test to rule out [place]'s disease was normal. MRI (04/04/20) showed 1.8 x 1.3 cm lesion adjacent to the anterior lateral aspect of Meckel's cave. Possible pituitary adenoma vs. primary sinonasal lesion arising from the sphenoid or less likely clival lesion. Hormonal Status Thyroid: TSH/FT4 normal 02/22, on levothyroxine for primary hypothyroidism. Sees Dr. Rai for this. GH: repeat IGF-1 at [facility] was normal. No signs or symptoms of acromegaly. HPA axis: No signs or symptoms of rafael's at this time. 24 hour UFC slightly elevated without Cr LDDST screen for CD was negative (05/24) 8AM cortisol 13 (04/23)--->will get an ACTH stimulation test to confirm patient doesn't have adrenal insufficiency Gonadal: menopausal Prolactin normal PLAN: - per Dr. Lema, CT sinus and evaluation by ENT - ordered ACTH stimulation test Problem List Nervous Pituitary macroadenoma (CMS/HCC) - Primary Relevant Orders Infusion Appointment Request 60 MIN Endocrine/Metabolic Primary hypothyroidism Plan for f/u with Dr. Tae Patient was discussed with Dr. Borges who also spoke with patient via real- time video and audio. Anna Hernandez MD Endocrinology Fellow Cosigned by Sarah Borges MD at 04/05/2020 12:59 PM CDT Associated attestation - Sarah Borges MD - 04/05/2020 12:59 PM CDT I have seen and examined the patient. I agree with the findings and plan of care as documented in the resident/fellow's note and as discussed with the resident/fellow. This was a telemedicine visit with Silvialionel Boss bon which took place via Real-time video connection (InTouch, Zoom or similar).During the visit, I was located in the office and the patient was located at home in the [facility]. I was present for the garcia portions with the resident and pat ient/caregiver. I agree with the findings and plan of care as documented in the resident's note. Myvisit with the patient started at 2pm and ended at 2:20pm. Total encounter time was 30 minutes, which includes time spent today on pre charting, the patient encounter, and post charting. The patient: has been informed that the visit may not be secure and acknowledged the information. The Attending has explained the option of participating in a telephone or video visit during the COVID-19 public health emergency to them. After being given an opportunity to ask questions about and discuss this type of visit, they verbally consented to proceeding with the telephone/video visit and understand that this service replaces an office visit and they may be billed and/or responsible for any applicable copayments. Sarah Borges MD documented in this encounter Plan of Treatment Not on file documented as of this encounter Visit Diagnoses Diagnosis 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) Primary hypothyroidism Unspecified hypothyroidism documented in this encounter Care Teams Technical Service Rep Relationship Specialty Start Date End Date Cate Patel MD PCP - General Family Practice 04/30/19 04/02/23 documented as of this encounter
--- OUTSIDE RECORDS SUMMARY | 2024-09-21 04:26 | XMS_ITS | Encounter Summary ---
Author Organization [facility] Address [address] [place] [address] Phone Care Team Providers Care Electrical Controls Designer Name Role Phone Cate Patel MD Primary Care Provider + [phone] Encounter Details Date Type Department Care Team (Late st Contact Info) Description 04/17/2020 12:00 PM CDT Telemedicine [facility] Neurosurgery [address] [facility] 6th [place] [address] [place] [address] Ole Lema MD [address] [facility] [address] [place] [address] Abnormal MRI scan, head (Primary Dx) Social History Tobacco Use Types [...] on file 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 During thevisit, I was located in the office and the patient was located [place]. The patient visit started at 1:15 p.m. and ended at 1:23 p.m.. Total encounter time was thirty-five minutes,which includes time spent today on pre charting, the patient encounter, and post charting. The patient: has been informed that the visit may not be secure and acknowledged the information. The option of participating in a telephone or video visit during the [facility] [place] [address] emergencywas explained to them. After being given an opportunity to ask questions about and discuss this type of visit, they verbally consented to proceeding with the telephone/video visit and understand thatthis service replaces an office visit. TELEMEDICINE OFFICE VISIT: The patient return to office for follow-up regarding the abnormality noted on her MR imaging. The patient initially presented with headaches. She underwent an MRI scan of the brain with a pituitary protocol as well as an MRA here at [facility]. The patient was noted to have noted to havea lesion involving the left side of the pituitary extending into the cavernous sinus that was felt to possibly represent an adenoma. The the lesion was observed and the patient underwent follow-up MRimaging on 04/04/2020 it was again noted to have an approximately 1.8 x 1.3 cm mildly enhancing lesion along the left floor of the sella abutting the pituitary gland and extending into the sigmoid sinus and left cavernous sinus regions. There was remodeling of the clivus. The exact etiology lesion was uncertain. It was recommend the patient have a CT scan of the sinus for further assessment of the bony relations to the lesion noted on MRI scan. CT scan scan of the sinus done on 04/15/2020 showed an mildly expansile lesion along the floor of the left sella with underlying remodeling and scalloping of the clivus and focal dehiscence of the medial distal petrous carotid canal. The CT scan was reviewed with the neuro radiology attending as well as the patient's prior to MRI scans. It was felt that the lesion was stable over the past year. The findings were suspicious for a possible benign entity such as a schwannoma arising from the left cavernous sinus region or the possibility of a a pituitary adenoma cannot be excluded. IMPRESSION: Abnormal MRI scan with evidence of a stable appearing lesion involving the region of the pituitary/cavernous sinuson the left side. The lesion was felt possibly to represent a schwannoma arising fromwithin the cavernous sinus up on further review by the neuro radiology attending. Other possibilities included pituitary adenoma. It was not felt to be likely a aggressive neoplasm based on its stability over the past year. Patient was told of the above findings and options were reviewed. Given thestable appearance of the lesion over the past year it was felt to likely be a benign lesion. It wasrecommend the patient have a follow-up MRI scan of the brain with the pituitary protocol in about 1year. She is to return to office for follow-up at that time. The patient agreed with above plan. Ole Lema MD documented in this encounter Plan of Treatment Not on file documented as of this encounter Visit Diagnoses Diagnosis Abnormal MRI scan, head- Primary documented in this encounter Care Teams Electrical Controls Designer Relationship Specialty Start Date End Date Cate Patel MD PCP - General Family Practice 04/30/19 04/02/23 documented as of this encounter
--- OUTSIDE RECORDS SUMMARY | 2024-09-21 04:26 | XMS_ITS | Encounter Summary ---
Author Organization [facility] Healthcare Address [address] [place] [address] Care Team Providers Care Learning Strategist Name Role Phone Cate Patel MD Primary Care Provider Reason for Referral * Diagnostic Imaging (Routine) - Closed Specialty Diagnoses / Procedures Referred By Contac t Referred To Contact Radiology Diagnoses Pituitary tumor Procedures MR Pituitary Brain W WO Contrast Ole Lema MD Phone: tel: fax: [facility] Radiology Referral ID Status Reason Start Date Expiration Date Visits Re quested Visits Authorized [id number] Closed 07/06/2019 01/14/2021 1 1 Reason for Visit * Diagnostic Imaging (Routine) - Closed Specialty Diagnoses / Procedures Referred By Contac t Referred To Contact Radiology Diagnoses Pituitary tumor Procedures MR Pituitary Brain W WO Contrast Ole Lema MD Phone: tel: fax: 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 1 TABLET [...] (PITUITARY) Schedule Routine, Read Routine (OP Routine) 04/04/2020 7:26 AM CDT Pituitary tumor documented in this encounter Results * MR Pituitary Brain [...] by: Peter Tidwell M.D. Ole Lema MD IM MRI PROCEDURES Final Result documented in this [...] intravenous, Once in imaging, contrast, Starting on Fri04/04/20 at 0707, For 1 dose Given 04/04/2020 7:07 AM CDT 20 mL documented in this encounter Orders Medications Ordered That Robert ht Not Have Been Administered Count Last Ordered Date First Ordered Date gadoterate meglumine (DOTARE M) 0.5 mmol/mL injection 20 mL 1 04/04/2020 documented in this encounter Care Teams Learning Strategist Relationship Specialty Start Date End Date Cate Patel MD PCP - General Family Practice 04/30/19 04/02/23 documented as of this encounter
--- OUTSIDE RECORDS SUMMARY | 2024-09-21 04:26 | XMS_ITS | Encounter Summary ---
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 Moved her appt to 01/24. She will keep mri on 01/09- [facility] was cx on 01/09 documented in this encounter Plan of Treatment Not on file documented as of this encounter Visit Diagnoses Not on filedocumented in this encounter Care Teams Mechanical Design Engineer Facilities Relationship Specialty Start Date End Date Cate Patel MD PCP - General Family Practice 04/30/19 04/02/23 documented as of this encounter
--- OUTSIDE RECORDS SUMMARY | 2024-09-21 04:26 | XMS_ITS | Encounter Summary ---
Author Organization [facility] Healthcare Address [address] [place] [address] Care Team Providers Care Granite Sandblaster Apprentice Name Role Phone Cate Patel MD Primary Care Provider [phone] Reason for Visit * Diagnostic Imaging (Routine) - Closed Specialty Diagnoses / Procedures Referred By Contac t Referred To Contact Radiology Diagnoses Pituitary macroadenoma (HCC) Procedures CT Sinus Stealth WO Contrast CT Sinus WO Contrast Ole Lema MD Phone: tel: fax: [facility] [address] [place] [address] Referral ID Status Reason Start Date Expiration Date Visits Re quested Visits Authorized [id number] Closed 04/04/2020 10/14/2021 1 1 Encounter Details Date Type Department Care Team (Latest Contact Info) Description 04/15/2020 10:13 AM CDT - 04/15/2020 11:59 PM CDT Hospital Encounter [facility] [address] [place] [id number] Ole Lema MD [address] [id number] Pituitary macroadenoma (CMS/HCC) Discharge Disposition: Discharge to home or self [...] on file 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 Gender Identity Not on file Sexual [...] Procedure Name Priority Date/Time Associated Diagnosis Comments CT SINUS STEALTH WO CONTRAST Schedule Routine, Read Routine (OP Routine) 04/15/2020 10:25 AM CDT Pituitary macroadenoma (CMS/HCC) documented in this encounter Results * CT Sinus Stealth WO Contrast (04/15/2020 10:25 AM CDT) Anatomical Region Laterality Modality Head N/A Computed Tomogra phy 04/15/2020 11:4 9 AM CDT Impressions 04/15/2020 11:52 AM CDT Mildly expansile lesion along the floor of the left sella causing under modeling with scalloping of the clivus, bulging/thinning of the posterior sphenoid sinus wall, and focal dehiscence of the medial distal petrous carotid canal. ??The lesion itself is better characterized on the prior MRI. Dictated by: Abel Rahbar, M.D. The radiology attending physician has personally reviewed this study, and had reviewed and/or edited this written report and agrees with it. Electronically signed by: Linda Ch M.D. Narrative 04/15/2020 11:52 AM CDT EXAMINATION: CT of the paranasal sinuses without contrast HISTORY: Sellar mass. TECHNIQUE: CT of the paranasal sinuses was performed using sinus protocol without contrast. COMPARISON: Pituitary MRI dated 04/04/2020. FINDINGS: The lesion along the floor of the left sella results in adjacent mildly expansile bony remodeling with scalloping clivus as well as bulging/thinning of the posterior sphenoid sinus wall. ??The mass abuts the cavernous segment of the left internal carotid artery as demonstrated on the prior MRI and focal dehiscence of the distal petrous carotid canal. The frontal sinuses are normal. The ethmoid sinuses are normal. The maxillary sinuses are normal. The sphenoid sinuses are normal. The ostiomeatal units are open bilaterally. The nasal septum is at midline. No areas of bony erosion are identified. Lens replacements are present. There is mild intracranial atherosclerotic calcification. Limited view of the frontal lobes is normal. Procedure Note Linda Ch MD - 04/15/2020 EXAMINATION: CT of the paranasal sinuses without contrast HISTORY: Sellar mass. TECHNIQUE: CT of the paranasal sinuses was performed using sinus protocol without contrast. COMPARISON: Pituitary MRI dated 04/04/2020. FINDINGS: The lesion along the floor of the left sella results in adjacent mildly expansile bony remodeling with scalloping clivus as well as bulging/thinning of the posterior sphenoid sinus wall. The mass abuts the cavernous segment of the left internal carotid artery as demonstrated on the prior MRI and focal dehiscence of the distal petrous carotid canal. The frontal sinuses are normal. The ethmoid sinuses are normal. The maxillary sinuses are normal. The sphenoid sinuses are normal. The ostiomeatal units are open bilaterally. The nasal septum is at midline. No areas of bony erosion are identified. Lens replacements are present. There is mild intracranial atherosclerotic calcification. Limited view of the frontal lobes is normal. IMPRESSION: Mildly expansile lesion along the floor of the left sella causing under modeling with scalloping of the clivus, bulging/thinning of the posterior sphenoid sinus wall, and focal dehiscence of the medial distal petrous carotid canal. The lesion itself is better characterized on the prior MRI. Dictated by: Abel Roberson M.D. The radiology attending physician has personally reviewed this study, and had reviewed and/or edited this written report and agrees with it. Electronically signed by: Linda Ch M.D. Ole Lema MD IMG CT PROCEDURES Final Result documented in this encounter Visit Diagnoses Diagnosis Pituitary macroadenoma (HCC) Benign neoplasm of pituitary gland and craniopharyngeal duct (pouch) documented in this encounter Care Teams Granite Sandblaster Apprentice Relationship Specialty Start Date End Date Cate Patel MD PCP - General Family Practice 04/30/19 04/02/23 documented as of this encounter
--- OUTSIDE RECORDS SUMMARY | 2024-09-21 04:26 | XMS_ITS | Encounter Summary ---
Author Organization [facility] Address [address] [place] [address] Phone Care Team Providers Care Pet Food Deboner Name Role Phone Cate Patel MD Primary Care Provider [phone] Reason for Visit * Consultation (Routine) - Canceled Specialty Diagnoses / Procedures Referred By Yadiel t Referred To Contact Neurosurgery Diagnoses Pituitary macroadenoma (HCC) Cate Patel MD Phone: tel: fax: [facility] (All Locations) Referral ID Status Reason Start Date Expiration Date Visits Requested Visits Authorized [id number] Canceled Specialty Services Required 12/13/2019 06/23/2021 99 99 Encounter Details Date Type Department Care Team (Late st Contact Info) Description 04/04/2020 11:30 AM CDT Telemedicine [facility] Neurosurgery [address] [facility] Advanced Medicine 6th [place] [address] [place] [address] Ole Lema MD [address] [address] Abnormal MRI scan, head (Primary Dx) Social [...] on file 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 During thevisit, I was located in the office and the patient was located at home in the [facility]. The patient visit started at 12 55 p.m. and ended at 1:15 p.m. The patient: has been informed that thevisit may not be secure and acknowledged the information. The option of participating in a telephone or video visit during the [facility] was explained to them. After being given an opportunity to ask questions about and discuss this type of visit, they verbally consented to proceeding with the telephone/video visit and understand that this service replaces an office visit and they may be billed and/or responsible for any applicable copayments. TELEMEDICINE OFFICE VISIT: This is a 74-year-old female be seen in the Neurosurgery office for an abnormality involving the pituitary noted on MR imaging. ??The patient reportedly underwent a MRI scans as part evaluation to address her headaches. She denied associated visual changes with headaches. ??She was taking ibuprofen over the past year but had discontinued medications secondary to its affecting her kidneys. ??She was started on treatment with Topamax and noticed her headaches are much improved. ??Her thinking maybe slightly slower with the Topamax. ?? Patient had MR imaging her brain done on 04/12/2019 and again on 04/28/2019. ??Her initial MRI scanwas done with gadolinium in showed a left-sided lesion along the sella and ipsilateral cavernous sinus that could represent a pituitary adenoma. ??It was recommended she have further imaging with attention to the pituitary region. ??Unfortunately the patient's MRI scan done on 04/28/2019 with a pituitary protocol was done without contrast as her creatinine was marginally elevated. ??The follow-upstudy again showed a question of a expansile mass asymmetric to the left side of the sella with inferior extension to the clivus of on certain etiology. ?? Patient reports she is doing about the same since she was last seen here. She still has intermittent headaches. The MRIs on the left side behind her eye extending into her head they may come in clusters were she has several fairly frequent headaches and then they may be a period were she is headache free for period of time. She has stop the TopGravitonx as it was not working. She denies problems with vision. She is scheduled to be seen by Dr. Borges with a telephone video visit in endocrinologylater today. The patient denies problems with her vision. MR IMAGING OF THE BRAIN 04/04/2020: A mildly enhancing lesion along the left floor of the sella is identified with abutment of the leftaspect of the pituitary with extension into the sphenoid sinus and left cavernous sinus with remodeling of the clivus. 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 However, given location alternative pathology such as primary sinonasal lesion arising from the sphenoid and less likely clival lesion should be considered. Recommended a CT sinus for assessment of bony relationships. IMPRESSION: The patient continues to have intermittent headaches. The results of the patient's MRI scan from earlier today were discussed with her on the telephone. She was told the sella lesion noted on her MRIscan could be a arising from the pituitary such as a pituitary adenoma; although the possibility the lesion could be arising from the bone or sinus was discussed. It was recommend the patient have a noncontrast Stealth sinus CT scan to further define the lesion and bone anatomy. She is to have a telemedicine visit following the CT scan to discuss further recommendations. Ole Lema MD documented in this encounter Plan of Treatment Not on file documented as of this encounter Visit Diagnoses Diagnosis Abnormal MRI scan, head- Primary documented in this encounter Care Teams Pet Food Deboner Relationship Specialty Start Date End Date Cate Patel MD PCP - General Family Practice 04/30/19 04/02/23 documented as of this encounter
--- OUTSIDE RECORDS SUMMARY | 2024-09-21 04:26 | XMS_ITS | Encounter Summary ---
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 Lema. documented in this encounter Plan of Treatment Not on file documented as of this encounter Visit Diagnoses Not on filedocumented in this encounter Care Teams Perianesthesia Nurse Relationship Specialty Start Date End Date Cate Patel MD PCP - General Family Practice 04/30/19 04/02/23 documented as of this encounter
--- OUTSIDE RECORDS SUMMARY | 2024-09-21 04:26 | XMS_ITS | Encounter Summary ---
Author Organization [facility] Address [address] [place] [address] Phone Care Team Providers Care Mercerizing Range Feeder Name Role Phone Cate Patel MD Primary Care Provider [phone] Reason for Visit * Reason Comments Pituitary Problem * Consultation (Routine) - Closed Specialty Diagnoses / Procedures Referred By Yadiel adams Referred To Contact Neurosurgery Diagnoses Pituitary tumor Delroy Arreola MD Phone: tel: fax: [facility] (All Locations) Referral ID Status Reason Start Date Expiration Date V isits Requested Visits Authorized [id number] Closed Specialty Services Required 05/03/2019 11/11/2020 1 1 Encounter Details Date Type Department Care Team (Late st Contact Info) Description 05/25/2019 9:50 AM CDT Office Visit [facility] Neurosurgery [address] [facility] Advanced Medicine [address]th [place] [address] [place] [address] Ole Lema MD [address] [address] Pituitary tumor (Primary Dx) Social History Tobacco Use Types Packs/Day Years Used Date Smoking Tobacco: Never Smokeless Tobacco: Never Tobacco Cessation:Counseling Given: Yes Alcohol Use Standard Drinks/Week Comments Never 0 (1 standard drink = 0.6 oz pur e alcohol) AUDIT-C Answer Date Recorded Frequency of Alcohol Consumption Never 05/25/2019 Average Number of Drinks Not on file 019 Frequency of Binge Drinking Not on file 05/07 Comments Unknown Sex and Gender Information Value Date Recorded Sex Assigned at Not on file Legal Sex Female 12:44 AM RN EMBEDDED Gender Identity Not on file Sexual Orientation Not on file Occupation Industry Job Start Date Job End Date retired Not on file Not on file Not on file documented as of this encounter Last Filed Vital Signs Vital Sign Reading Time Taken Comments Blood Pressure 124/72 05/25/2019 8:48 AM CDT Pulse 84 05/25/2019 8:48 AM CDT Temperature - - Respiratory Rate - - Oxygen Saturation - - Inhaled Oxygen Concentration - - Weight 106.9 kg (235 lb 9.6 oz) 05/25/2019 8:48 AM CDT Height 157.5 cm (5' 2 ) 05/25/2019 8:48 AM CDT Body Mass Index 43.09 05/25/2019 8:48 AM CDT documented in this encounter Progress Notes * Ole Lema MD - 05/25/2019 9:50 AM CDT HISTORY AND PHYSICAL Silvia Boss 1945 Date of Consultation 05/25/2019 Physician: Ole Lema MD Referring physician: Delroy Arreola MD Chief complaint: Suspected pituitary abnormality on MR imaging HPI: Silvia Boss is a 74 y.o. female seen at the request of Delroy Arreola MD. Ms. Boss referred to the Neurosurgery office for possible abnormality involving the pituitary noted on MR imaging. The patient reports she underwent a MRI scans as part evaluation to address her headaches. Shedescribes having severe headaches. She notes they are a pounding headache over associated with stress they occur over her left occipital region. She denies associated visual changes with headaches. She was taking ibuprofen over the past year but had discontinued medications secondary to its affecting her kidneys. She was started on treatment with Topamax and noticed her headaches are much improved. Her thinking may be slightly slower with the Topamax. Patient had MR imaging her brain done [...] certain etiology. Patient [facility]. PAST MEDICAL HISTORY Surgery She has a past surgical history that includes Hysterectomy; Cholecystectomy; Bunionectomy; Correction hammer toe; Eye surgery; Total hip arthroplasty (Left); Humerus fracture surgery (Right); Replacement total knee (Bilateral); and Back surgery. Medical She has a past medical history of Arthritis, Brain tumor (benign) (CMS/HCC), Dermatitis, Diabetes mellitus type I (CMS/HCC), Diarrhea, Dizziness, Easy bruising, Eczema, H/O radioactive iodine thyroidablation, Head ache, History of blood transfusion, Hypertension, Increased thirst, Lightheadedness, Osteoarthritis, Sinusitis, SOB (shortness of breath), Sweating increase, Thyroid nodule, Type 2 diabetes mellitus (CMS/HCC), UTI (urinary tract infection), and Weight gain. FAMILY HISTORY Her family history includes Depression in her mother; Diabetes in her brother and mother; Heart attack in her mother; Hypertension in her brother, father, mother, and sister. MEDICATIONS Current Outpatient Medications: ??? aspirin-calcium carbonate [...] MOUTH ONCE DAILY, Disp: , Rfl: ??? dilTIAZem XR (CARTIA XT) 240 mg [...] or until resolved., Disp: , Rfl: ??? CONTRAVE 8-90 mg [...] drawn., Disp: 1 tablet, Rfl: 0 ??? omeprazole (PriLOSEC) 40 mg capsule, Take 40 mg by mouth daily, Disp: , Rfl: ALLERGIES No Known Allergies. SOCIAL HISTORY She reports that she has never smoked. She has never used smokeless tobacco. She reports that she does not drink alcohol or use drugs. REVIEW OF SYSTEMS Review of systems was negative as per patient for cardiovascular, respiratory, endocrine, GI, , dermatologic, hematologic, or musculoskeletal symptoms. PHYSICAL EXAM Patient was alert. She was oriented. Speech was clear. Mental status appeared baseline. Cranial nerve exam showed the patient is pupils to be equal reactive to light. Extraocular movements were full.Face was symmetrical. Tongue palate midline. Motor sensory testing appeared nonfocal. Reflexes symmetric. Gait was stable. IMAGING As noted above. ASSESSMENT AND PLAN Ms. Boss is a 74 y.o. female seen in the neurosurgery office for assessment of an abnormality noted in the region of the sella on MR imaging. The patient was seen today also by Dr. Borges who recommended further workup of her pituitary function including a repeat IGF 1 as well as a low-dose dexamethasone suppression test. The patient was told that her MRI scan incompletely evaluated her pituitary lesion the due to the lack of contrast with her pituitary protocol MR study. I spoke with the neuro radiology attending here who felt the patient would likely be able to undergo MRI scan witha dynamic pituitary study with gadolinium in view of her current renal function and history. The patient was scheduled to return to the Neurosurgery office after undergoing a gadolinium- enhanced MRI scan with the dynamic pituitary study. Ole Lema MD documented in this encounter Plan of Treatment Not on file documented as of this encounter Visit Diagnoses Diagnosis Pituitary tumor- Primary Neoplasm of unspecified nature of endocrine glands and other parts of nervous system documented in this encounter Orders Outpatient Referral Count Last Ordered Date Fir st Ordered Date AMB REFERRAL TO NEUROSURGERY 1 05/25/2019 documented in this encounter Care Teams Mercerizing Range Feeder Relationship Specialty Start Date End Date Cate Patel MD PCP - General Family Practice 04/30/19 04/02/23 documented as of this encounter
--- OUTSIDE RECORDS SUMMARY | 2024-09-21 04:26 | XMS_ITS | Encounter Summary ---
Author Organization [facility] Healthcare Address [address] [place] [address] Care Team Providers Care Grounds And Nursery Specialist Name Role Phone Cate Patel MD Primary Care Provider [phone] Reason for Visit * Diagnostic Imaging (Routine) - Closed Specialty Diagnoses / Procedures Referred By Rickeyac t Referred To Contact Radiology Diagnoses Pituitary tumor Procedures MRI Brain W WO Contrast and MRA MRV Head WO Contrast MRI Brain and MRA Head W WO Contrast Ole Lema MD Phone: tel: fax: [address] [phone] Referral ID Status Reason Start Date Expiration Date Visits Re quested Visits Authorized [id number] Closed 05/25/2019 12/03/2020 1 1 Encounter Details Date Type Department Care Team (Latest Contact Info) Description 07/06/2019 8:06 AM CDT - 07/06/2019 11:59 PM CDT Hospital Encounter [facility] Radiology [address] [place] [address] [phone] Ole Lema MD [id number] [address] Pituitary tumor Discharge Disposition: Discharge to home [...] on file Legal Sex Female 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 1 TABLET TWICE DAILY [...] Diagnosis Comments MRI BRAIN W WO CONTRAST MRA MRV HEAD WO CONTRAST Schedule Routine, Read Routine (OP Routine) 07/06/2019 9:29 AM CDT Pituitary tumor documented in this encounter Results * MRI Brain W WO Contrast and MRA MRV Head WO Contrast (07/06/2019 9:29 AM CDT) Anatomical Region Laterality Modality Head and Neck N/A Magnetic Resonan ce 07/06/2019 2:13 PM CDT Impressions 07/06/2019 2:23 PM CDT 1. Heterogeneous sellar mass inseparable from the pituitary gland, involving the clivus with lateral extension into the left cavernous sinus. ??Approximately 180 degree abutment of the left internal carotid, without evidence for encasement, mass effect or luminal narrowing. ??The appearance, signal characteristics and size are stable from 04/26/2019. ??Differential diagnosis favor pituitary adenoma or meningioma. ??Signal characteristics do not favor chordoma or chondrosarcoma. 2. Normal MRA. ?? Findings were discussed via telephone with Dr. Lema by Neuroradiology Attending Dr. Jay at 1230 hours 07/06/2019 Dictated by: Paul Smyth M.D. The radiology attending physician has personally reviewed this study, and had reviewed and/or edited this written report and agrees with it. Electronically signed by: Juna Jay Narrative 07/06/2019 2:23 PM CDT EXAMINATION: Magnetic resonance imaging (MRI) of the brain and brainstem without and with contrast. Magnetic resonance angiography (MRA) of the cfmzjw-yr-Mhqawf without contrast HISTORY: 74-year-old female with endocrine abnormalities. ?? TECHNIQUE: Multiplanar multi-weighted MRI of the brain and brainstem was performed without and with ??intravenous contrast using the pituitary protocol. This included acquisitions showing dynamic contrast enhancement of the sella turcica in the coronal plane and a post-contrast T1-Stealth sequence. Magnetic resonance angiography of the zfhkkh-sy-Kpbbit was performed using a separate data acquisition with a non-contrast xmim-rk-tchrta technique to produce axial thin-slice source images. These images were then used to generate maximum intensity projection (MIP) images. Contrast information: 21 mL Dotarem COMPARISON: ??MRI brain 04/26/2019. FINDINGS: Again redemonstrated is a 1.6 x 0.8 cm ??(AP x CC) T1 and T2 isointense multilobulated, heterogeneously enhancing sella mass involving the left clivus. ??There is lateral extension into the left cavernous sinus, with abutment of the left internal carotid artery for approximately 180 degrees. ??There is no encasement, mass effect/displacement or luminal narrowing. ??There is no impingement on the optic chiasm. ??The mass is inseparable from the pituitary gland, which enhances homogeneously. ??There is also extension into the left sphenoid sinus. ??The optic chiasm and orbits are normal. The scalp and calvarium are normal. The superior sagittal sinus demonstrates normal venous flow. ??Corpus callosum, posterior fossa, brainstem and craniocervical junction are normal. ?? The ventricles are normal in size and position without evidence of hydrocephalus. Paranasal sinuses, mastoids and globes are normal. Normal flow voids are demonstrated in the carotid arteries and basilar artery. Findings MRA The internal carotid arteries are of normal caliber. There are no areas of atherosclerotic narrowing. The kxirzx-ii-Oppzhx is complete. The anterior and middle cerebral arteries are normal. The vertebral arteries are codominant. The basilar artery is normal. The posterior cerebral arteries are normal. There is no aneurysm or vascular malformation identified. Although MRA is a screening examination, catheter angiography remains the definitive study for small aneurysms, vasculitis, and other vascular abnormalities. Procedure Note Juan Jay MD PhD - 07/06/2019 EXAMINATION: Magnetic resonance imaging (MRI) of the brain and brainstem without and with contrast. Magnetic resonance angiography (MRA) of the uhqrmp-fo-Bygnhr without contrast HISTORY: 74-year-old female with endocrine abnormalities. TECHNIQUE: Multiplanar multi-weighted MRI of the brain and brainstem was performed without and with intravenous contrast using the pituitary protocol. This included acquisitions showing dynamic contrast enhancement of the sella turcica in the coronal plane and a post-contrast T1-Stealth sequence. Magnetic resonance angiography of the nccevw-li-Yzftpp was performed using a separate data acquisition with a non-contrast fbqg-ev-xbyvdm technique to produce axial thin-slice source images. These images were then used to generate maximum intensity projection (MIP) images. Contrast information: 21 mL Dotarem COMPARISON: MRI brain 04/26/2019. FINDINGS: Again redemonstrated is a 1.6 x 0.8 cm (AP x CC) T1 and T2 isointense multilobulated, heterogeneously enhancing sella mass involving the left clivus. There is lateral extension into the left cavernous sinus, with abutment of the left internal carotid artery for approximately 180 degrees. There is no encasement, mass effect/displacement or luminal narrowing. There is no impingement on the optic chiasm. The mass is inseparable from the pituitary gland, which enhances homogeneously. There is also extension into the left sphenoid sinus. The optic chiasm and orbits are normal. The scalp and calvarium are normal. The superior sagittal sinus demonstrates normal venous flow. Corpus callosum, posterior fossa, brainstem and craniocervical junction are normal. The ventricles are normal in size and position without evidence of hydrocephalus. Paranasal sinuses, mastoids and globes are normal. Normal flow voids are demonstrated in the carotid arteries and basilar artery. Findings MRA The internal carotid arteries are of normal caliber. There are no areas of atherosclerotic narrowing. The minwxm-zl-Yhvidp is complete. The anterior and middle cerebral arteries are normal. The vertebral arteries are codominant. The basilar artery is normal. The posterior cerebral arteries are normal. There is no aneurysm or vascular malformation identified. Although MRA is a screening examination, catheter angiography remains the definitive study for small aneurysms, vasculitis, and other vascular abnormalities. IMPRESSION: 1. Heterogeneous sellar mass inseparable from the pituitary gland, involving the clivus with lateral extension into the left cavernous sinus. Approximately 180 degree abutment of the left internal carotid, without evidence for encasement, mass effect or luminal narrowing. The appearance, signal characteristics and size are stable from 04/26/2019. Differential diagnosis favor pituitary adenoma or meningioma. Signal characteristics do not favor chordoma or chondrosarcoma. 2. Normal MRA. Findings were discussed via telephone with Dr. Lema by Neuroradiology Attending Dr. Jay at 1230 hours 07/06/2019 Dictated by: Paul Smyth M.D. The radiology attending physician has personally reviewed this study, and had reviewed and/or edited this written report and agrees with it. Electronically signed by: Juan Jay Ole Lema MD IMG MRI PROCEDURES Final Result documented in this encounter Visit Diagnoses Diagnosis Pituitary tumor Neoplasm of unspecified nature of endocrine glands and other parts of nervous system documented in this encounter Administered Medications Inactive Administered Medications - up to 3 most recent administrations Medication Order MAR Action Action Date Dose Rate Site gadoterate meglumine (DOTAREM) 0.5 mmol/mL injection 21.38 mL 21.38 mL (0.1 mmol/kg ? 106.9 kg), intravenous, Once in imaging, contrast, Starting on Fri07/06/19 at 0842, For 1 dose, Imaging Protocol Orders Given 07/06/2019 8:55 AM CDT 20 mL documented in this encounter Orders Medications Ordered That Robert ht Not Have Been Administered Count Last Ordered Date First Ordered Date gadoterate meglumine (DOTARE M) 0.5 mmol/mL injection 21.38 mL 1 07/06/2019 documented in this encounter Care Teams Grounds And Nursery Specialist Relationship Specialty Start Date End Date Cate Patel MD PCP - General Family Practice 04/30/19 04/02/23 documented as of this encounter
--- OUTSIDE RECORDS SUMMARY | 2024-09-21 04:26 | XMS_ITS | Encounter Summary ---
Author Organization 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 1 TABLET [...] NEURO CT MR OUTSIDE REFERENCE Routine 05/28/2019 11:33 AM CDT Diagnosis unknown documented in this encounter Results * Neuro CT MR Outside Reference (05/28/2019 11:33 AM CDT) Impressions RAD_PACS_[facility] - 05/28/2019 11:33 AM CDT These images are for Reference purposes only and have not been reviewed by [facility] Radiology. ??There will be no report generated by a [facility] Radiologist. Narrative RAD_PACS_[facility] - 05/28/2019 11:33 AM CDT EXAMINATION: ??Images For Reference Purposes Only us Ole Lema MD IMG CT PROCEDURES Final Result [facility] documented in this encounter Visit Diagnoses Not on filedocumented in this encounter Care Teams Tank Terminal Gauger Relationship Specialty Start Date End Date Cate Patel MD PCP - General Family Practice 04/30/19 04/02/23 documented as of this encounter
--- OUTSIDE RECORDS SUMMARY | 2024-09-21 04:26 | XMS_ITS | Encounter Summary ---
Author Organization [facility] Address [address] [place] [address] Phone Care Team Providers Care Resource Conservation Specialist Name Role Phone Cate Patel MD Primary Care Provider [phone] Encounter Details Date Type Department Care Team (Late st Contact Info) Description 03/16/2020 Telephone [facility] Neurosurgery [facility] 6th [place] [address] [place] [address] Rosalba Eubanks, RN Social History [...] on file 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 Lema will be giving her a Tele-medicine visit and go over her MRI results. She is to call steve questions. documented in this encounter Plan of Treatment Not on file documented as of this encounter Visit Diagnoses Not on filedocumented in this encounter Care Teams Resource Conservation Specialist Relationship Specialty Start Date End Date Cate Patel MD PCP - General Family Practice 04/30/19 04/02/23 documented as of this encounter
--- OUTSIDE RECORDS SUMMARY | 2024-09-21 04:26 | XMS_ITS | Encounter Summary ---
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 1 TABLET TWICE [...] NEURO CT MR OUTSIDE REFERENCE Routine 05/28/2019 11:36 AM CDT Diagnosis unknown documented in this encounter Results * Neuro CT MR Outside Reference (05/28/2019 11:36 AM CDT) Impressions RAD_PACS_[facility] - 05/28/2019 11:36 AM CDT These images are for Reference purposes only and have not been reviewed by [facility] Radiology. ??There will be no report generated by a [facility] Radiologist. Narrative RAD_PACS_[facility] - 05/28/2019 11:36 AM CDT EXAMINATION: ??Images For Reference Purposes Only us Guerrero Ornelas MD IMG CT PROCEDURES Final Result [facility] documented in this encounter Visit Diagnoses Not on filedocumented in this encounter Care Teams Senior Medical Writer Relationship Specialty Start Date End Date Cate Patel MD PCP - General Family Practice 04/30/19 04/02/23 documented as of this encounter
--- OUTSIDE RECORDS SUMMARY | 2024-09-21 04:26 | XMS_ITS | Encounter Summary ---
Author Organization [facility] Care Team Providers Care Picking Machine Operator Helper Name Role Phone Unavailable Primary Care Provider Unavailabl e Encounter Details Date Type Department Care Team (Latest Contact Info) Description 12/07/2013 1:17 PM MASONRY TEACHER Hospital Encounter [facility] [place] [id number] [address] Other specified pre-operative examination; Spinal stenosis of lumbar region without neurogenic claudication; Esophageal reflux; Essential hypertension; Obstructive sleep apnea; Contact dermatitis and other eczema; Type 2 or unspecified type diabetes mellitus; Anemia; Diaphragmatic hernia; Acute pancreatitis; Morbid obesity (HCC); Body mass index (BMI) of 45.0-49.9 in adult (HCC); Mari's esophagus; Hypothyroidism; Acquired absence of both cervix and uterus; Other acquired absence of organ; History of hip joint replacement by other means; Other postprocedural states; Encounter for long-term (current) use of other medications Social History Tobacco Use Types Packs/Day Years Used Date Smoking Tobacco: Never Assessed Comments Unknown Sex and Gender Information Value Date Recorded Sex Assigned at Not on file Legal 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 Date: 12/07/2013 Attending: LEROY MCKEE MD Admit Date: 12/07/2013 Consult.: GAMAL MONAE MD Disch. Date: 12/07/2013 Patient Type: O HISTORY OF PRESENT ILLNESS: Silvia Boss is a 68-year-old woman with spinal stenosis scheduled for lumbar decompression procedure by Dr. Mckee on 12/13/2013. Dr. Mckee asked me to visit Mr. Boss to evaluate her underlying physiologic status and fitness for the upcoming procedure. I am sending a copy of this dictation to Dr. Mckee. ALLERGIES: Ms. Boss has no known drug allergies. MEDICATIONS: 1. Omeprazole. 2. Levothyroxine. 3. Spironolactone. 4. Lisinopril. 5. Diltiazem. On the day of surgery, she will take her omeprazole, thyroid and diltiazem. PAST MEDICAL HISTORY: Positive for reflux disease, hypertension, obstructive sleep apnea, eczema, spine problems, both in the lumbar and some issues in her cervical spine. Diet controlled diabetes mellitus, history of anemia, hiatal hernia, history of pancreatitis in the past. Morbid obesity with a BMI of 58 and Mari's esophagitis. She had an EGD at the end of October which showed erosions and ulcerations and also she needed a dilatation at that point. She has a followup appointment in January to ensure healing has occurred. Again, she has hypothyroidism. PAST SURGICAL HISTORY: Positive for hip replacement, cholecystectomy, appendectomy, bladder repair, carpal tunnel surgery, hysterectomy, knee scope and bunionectomy. No anesthetic complaints are noted. None of these procedures were done particularly recently. REVIEW OF SYSTEMS: She has no smoking history. She does not drink alcohol. She does have an elevated risk for obstructive sleep apnea. She does have dyspnea on exertion. In fact further questioning reveals that it may be more related to the pain of her sciatica when she has extensive standing. She denies any cardiac or pulmonary problems or unprovoked dyspnea. She certainly denies chest pain, angina or intrinsic heart disease. She reveals that she does exercise. In fact, she does water aerobics 3 times a week and starts off with swimming several laps in the pool. She also does chair aerobics. It seems that her functional capacity given this history is adequate for this scheduled surgery. REVIEW OF SYSTEMS: Also include some dependent edema, known previous blood transfusion history, easy bruisability and of course the chronic pain that she is dealing with and the previously mentioned heartburn and dysphagia that was treated with the EGD and dilatation. PHYSICAL EXAMINATION: GENERAL: She is 62 inches, 121 kg with BMI of 49. VITAL SIGNS: Unremarkable. Airway is class II. CARDIAC: Reveals regular rate and rhythm. LUNGS: Clear. Teeth are intact and a slightly decreased range of motion of the cervical spine. Again, she has talked to Dr. Mckee about her cervical spine. 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 ASSESSMENT: Ms. Boss is an ASA physical status III patient. I will review her screening laboratory data as it becomes available. A general anesthetic will be provided per protocol. I do think her functional capacity, given her water aerobics and chair aerobics participation seems adequate for this scheduled surgery. GAMAL MONAE MD MP/do TD: 12/07/2013 14:59 Authenticated by Gamal Monae MD On 12/08/2013 08:19:43 AM documented in this encounter Plan of Treatment Not on file documented as of this encounter Procedures Procedure Name Priority Date/Time Associated Diagnosis Comments PLASMA BASIC METABOLIC PANEL Routine 12/07/2013 1:50 PM MASONRY TEACHER BLOOD CELL COUNT (CBC), MORPHOLOGIC EXAM Routine 12/07/2013 1:50 PM MASONRY TEACHER ELECTROCARDIOGRAPHY (ECG) 12/07/2013 DISCHARGE LABORATORY CUMULATIVE REPORT 12/07/2013 documented in this encounter Results * (ABNORMAL) Blood cell count (CBC), morphologic exam (12/07/2013 1:50 PM MASONRY TEACHER) WBC 7.6 4.5 - 11.0 K/cumm HISTORICAL RESULTS RBC 3.21(L) 3.80 - 5.40 M/cumm HISTORICAL RESULTS Hgb 9.4(L) 11.5 - 16.0 g/dl HISTORICAL RESULTS Hct 29.3(L) 34.0 - 48.0 % HISTORICAL RESULTS MCV 91.3 80.0 - 100.0 fl HISTORICAL RESULTS MCH 29.3 27.0 - 33.0 pg HISTORICAL RESULTS MCHC 32.1 32.0 - 36.0 g/dl HISTORICAL RESULTS Rdw 14.7(H) 11.5 - 14.5 % HISTORICAL RESULTS Platelets 339 140 - 400 K/cumm HISTORICAL RESULTS MPV 9.9 7.4 - 10.4 fl HISTORICAL RESULTS Neutrophils 68.0 42.0 - 75.0 % HISTORICAL RESULTS Lymphocytes 17.5(L) 21.0 - 51.0 % HISTORICAL RESULTS Monos 11.9(H) 2.0 - 9.0 % HISTORICAL RESULTS Eosinophils 2.3 0.0 - 10.0 % HISTORICAL RESULTS Basophils 0.3 0.0 - 1.0 % HISTORICAL RESULTS Neutrophils, abs 5.1 1.0 - 6.6 K/cumm HISTORICAL RESULTS Lymphocytes, abs 1.3 1.2 - 3.3 K/cumm HISTORICAL RESULTS Monocytes, absolute 0.9 0.2 - 1.2 K/cumm HISTORICAL RESULTS Eosinophils, abs 0.2 0.0 - 0.5 K/cumm HISTORICAL RESULTS Basophils, abs 0.0 0.0 - 0.2 K/cumm HISTORICAL RESULTS Blood specimen (specimen) 12/07/2013 1:50 PM MASONRY TEACHER Leroy Mckee III, MD LAB BLOOD ORDERABLES Final Result HISTORICAL RESULTS * (ABNORMAL) Plasma basic metabolic panel (12/07/2013 1:50 PM MASONRY TEACHER) eGFR 45 ml/min/1.7 3 m2 HISTORICAL RESULTS Comment: GFR Reference Range: = > 60 mL/min/1.73 m2 This result has been calculated assuming the patient is Non-. ??If the patient is , please multiply this result by 1.21. Sodium 134(L) 136 - 145 mmol/L HISTORICAL RESULTS K, pl 4.9 3.5 - 5.1 mmol/L HISTORICAL RESULTS Chloride 101 98 - 107 mmol/L HISTORICAL RESULTS CO2 25 21 - 32 mmol/L HISTORICAL RESULTS A. gap 8 3 - 11 mmol/L HISTORICAL RESULTS BUN 46(H) 7 - 18 mg/dl HISTORICAL RESULTS Creatinine 1.2 0.6 - 1.3 mg/dl HISTORICAL RESULTS Glucose 111 70 - 140 mg/dl HISTORICAL RESULTS Comment: Glucose is assumed to be non-fasting. Fasting Glucose reference ranges are: 0 days - 1 month: ? 40 mg/dL - 100 mg/dL 1 month - 999 years: ?70 mg/dL - 99 mg/dL Calcium 8.4(L) 8.5 - 10.1 mg/dl HISTORICAL RESULTS Plasma 12/07/2013 1:50 PM MASONRY TEACHER Leroy Mckee III, MD LAB BLOOD ORDERABLES Final Result HISTORICAL RESULTS * DISCHARGE LABORATORY CUMULATIVE REPORT (12/07/2013) Narrative 12/07/2013 Ordered by an unspecified provider. Historical Provider LAB BLOOD ORDERABLES Alysia l Result * ELECTROCARDIOGRAPHY (ECG) (12/07/2013) Narrative 12/07/2013 Ordered by an unspecified provider. Historical Provider ECG ORDERABLES Final Res ult documented in this encounter Visit Diagnoses Diagnosis Other specified pre-operative examination Spinal stenosis of lumbar region without neurogenic claudication Esophageal reflux Essential hypertension Unspecified essential hypertension Obstructive sleep apnea Obstructive sleep apnea (adult) (pediatric) Contact dermatitis and other eczema Type 2 or unspecified type diabetes mellitus Anemia Unspecified anemia Diaphragmatic hernia Diaphragmatic hernia without mention of obstruction or gangrene Acute pancreatitis Morbid obesity (HCC) Morbid obesity Body mass index (BMI) of 45.0-49.9 in adult (HCC) Mari's esophagus Hypothyroidism Unspecified hypothyroidism Acquired absence of both cervix and uterus Other acquired absence of organ History of hip joint replacement by other means Other postprocedural states Encounter for long-term (current) use of other medications documented in this encounter
--- OUTSIDE RECORDS SUMMARY | 2024-09-21 04:26 | XMS_ITS | Encounter Summary ---
Author Organization [facility] Healthcare Address [address] [place] [address] Care Team Providers Care Manager Molecular Name Role Phone Unavailable Primary Care Provider Unavailabl e Encounter Details Date Type Department Care Team (Late st Contact Info) Description 11/04/2013 1:21 PM FURNACE WORKER - 11/04/2013 11:59 PM FURNACE WORKER [facility] [place] [id number] [address] Lumbosacral spondylosis without myelopathy Social History Tobacco Use Types Packs/Day Years Used Date Smoking Tobacco: Never Assessed Comments Unknown Sex and Gender Information Value Date Recorded Sex Assigned at Not on file Legal Sex Female 12:44 AM FURNACE WORKER Gender Identity Not on file Sexual Orientation Not on file documented as of this encounter Plan of Treatment Not on file documented as of this encounter Procedures Procedure Name Priority Date/Time Associated Diagnosis Comments MRI LUMBAR SPINE W CONTRAST Routine 11/04/2013 1:59 PM FURNACE WORKER documented in this encounter Results * MRI Lumbar Spine W Contrast (11/04/2013 1:59 PM FURNACE WORKER) Anatomical Region Laterality Modality Spine N/A Magnetic Resonan ce 11/04/2013 1:59 PM FURNACE WORKER Narrative 11/06/2013 8:34 AM FURNACE WORKER MRI# Alt / jlm MRI LUMBAR SPINE ??Acc#: ??[id number] DATE OF EXAM: ??Nov 04 2013 CLINICAL HISTORY: [age] year old female presents with low back pain and radiation into the lower extremities bilaterally with associated bilateral lower extremity numbness for several years. ??No recent history of injury or surgery. RESULT: PROTOCOL: Standard lumbar spine imaging was performed using axial and sagittal T1 and T2 sequences without contrast. FINDINGS: The lumbar column is normally aligned. ??There is no evidence of fracture, marrow edema or spondylolisthesis. ??The conus medullaris terminates normally at L1. ?? The perispinal structures are normal. Broad-based disc protrusions are present at all lumbar levels. ??This results in significant diffuse canal stenosis, which is most severe at the L3-L4 and L4-L5 levels. ??Diffuse facet osteoarthritis is also present, causing severe foraminal stenosis, particularly at L3-L4, L4-L5 and L5-S1. ??The surrounding soft tissues are unremarkable. IMPRESSION: 1. BROAD-BASED POSTERIOR DISC PROTRUSIONS AT ALL LUMBAR LEVELS RESULTING IN VARYING DEGREES OF CANAL STENOSIS, MOST SEVERELY AT L3-L4 AND L4-L5. 2. DIFFUSE FORAMINAL STENOSIS DUE TO FACET OSTEOARTHRITIS. ??THIS IS MOST SEVERE AT L3-L4, L4-L5 AND L5-S1. 3. NO EVIDENCE OF FRACTURE OR MALALIGNMENT. Interpreting Physician: ??DR KORINA NAJERA M.D. ??Read on: ??Nov 04 2013 2:56P Transcribed by: ??randy ??On: Nov 05 2013 ??9:18A Approved Electronically by: ??REINALDO Valadez, DR HIU ??on: ??Nov ??2013 8:34A Ordering DR: ??LATISHA Attending DR: NAME NO Procedure Note Provider, MD Devin - 01/24/2017 MRI# Alt / jlm MRI LUMBAR SPINE Acc#: [id number] DATE OF EXAM: Nov 04 2013 CLINICAL HISTORY: [age] year old female presents with low back pain and radiation intothe lower extremities bilaterally with associated bilateral lowerextremity numbness for several years. No recent history of injury orsurgery. RESULT: PROTOCOL: Standard lumbar spine imaging was performed using axial and sagittal T1and T2 sequences without contrast. FINDINGS: The lumbar column is normally aligned. There is no evidence of fracture,marrow edema or spondylolisthesis. The conus medullaris terminatesnormally at L1. The perispinal structures are normal. Broad-based discprotrusions are present at all lumbar levels. This results in significantdiffuse canal stenosis, which is most severe at the L3-L4 and L4-X1oilhal. Diffuse facet osteoarthritis is also present, causing severeforaminal stenosis, particularly at L3-L4, L4-L5 and L5-S1. Thesurrounding soft tissues are unremarkable. IMPRESSION: 1. BROAD-BASED POSTERIOR DISC PROTRUSIONS AT ALL LUMBAR LEVELS RESULTINGIN VARYING DEGREES OF CANAL STENOSIS, MOST SEVERELY AT L3-L4 AND L4-L5. 2. DIFFUSE FORAMINAL STENOSIS DUE TO FACET OSTEOARTHRITIS. THIS IS MOSTSEVERE AT L3-L4, L4-L5 AND L5-S1. 3. NO EVIDENCE OF FRACTURE OR MALALIGNMENT. Interpreting Physician: DR KORINA NAJERA M.D. Read on: Nov 04 20132:[id number] Transcribed by: randy On: Nov 05 2013 9:18A Approved Electronically by: REINALDO Valadez, DR HUI on: Nov 06 20138:[id number] Ordering DR: LATISHA Attending DR: NAME NO Historical Provider MD RUCKER MRI PROCEDURES Final Result documented in this encounter Visit Diagnoses Diagnosis Lumbosacral spondylosis without myelopathy documented in this encounter
--- OUTSIDE RECORDS SUMMARY | 2024-09-21 04:26 | XMS_ITS | Encounter Summary ---
Author Organization [facility] Facility Care Team Providers Care Mechanical Process Engineer Name Role Phone Unavailable Primary Care Provider Unavailabl e Encounter Details Date Type Department Care Team (Late st Contact Info) Description 05/04/2009 10:04 PM CDT - 05/05/2009 9:33 AM T Hospital Encounter [facility] Jose aCrlos Burnett MD [address] [place] [address] Closed fracture of shaft of humerus; Osteoporosis; Osteoarthrosis; Essential hypertension; Personal history of arthritis; History of disease of blood and blood-forming organs; Fall from other slipping, tripping, or stumbling; Place of occurrence, public building Social History Tobacco Use Types Packs/Day Years Used Date Smoking Tobacco: Never Assessed Comments Unknown Sex and Gender Information Value Date Recorded Sex Assigned at Not on file Legal Sex Female 12:44 AM [employer] Gender Identity Not on file Sexual Orientation Not on file documented as of this encounter Plan of Treatment Not on file documented as of this encounter Visit Diagnoses Diagnosis Closed fracture of shaft of humerus Osteoporosis Unspecified osteoporosis Osteoarthrosis Osteoarthrosis, unspecified whether generalized or localized, unspecified site Essential hypertension Unspecified essential hypertension Personal history of arthritis History of disease of blood and blood-forming organs Personal history of diseases of blood and blood-forming organs Fall from other slipping, tripping, or stumbling Place of occurrence, public building documented in this encounter
[2024-09-21 17:54] LABS: Almond (F20) IgE <0.10 kU/L; Brazil Nut (f18) <0.10 kU/L; Brazil Nut (f18) Class 0; Codfish (F3) IgE <0.10 kU/L; Codfish (F3) IgE Class 0; Cow's Milk (F2) IgE 0.12 kU/L; Cow's Milk (F2) IgE Class 0/1; Egg White (F1) IgE <0.10 kU/L; Egg White (F1) IgE Class 0; Hazelnut (F17) IgE <0.10 kU/L; Hazelnut (F17) IgE Class 0; Peanut (F13) IgE <0.10 kU/L; Peanut (F13) IgE Class 0; Salmon (F41) IgE <0.10 kU/L; Salmon (F41) IgE Class 0; Sesame Seed <0.10 kU/L; Shrimp (F24) IgE 0.54 kU/L; Soybean (F14) IgE <0.10 kU/L; Soybean (F14) IgE Class 0; Tuna (F40) <0.10 kU/L; Tuna (F40) Class 0; Wheat (F4) IgE <0.10 kU/L; Wheat (F4) IgE Class 0
[2024-09-21 18:03] LABS: Cashew Nut (F202) IgE <0.10 kU/L; Cashew Nut (F202) IgE Class 0; Macadamia Nut (rf345) <0.10 kU/L; Macadamia Nut (rf345) Class 0; Scallop (F338) IgE <0.10 kU/L; Scallop (F338) IgE Class 0; Walnut (F256) IgE <0.10 kU/L; Walnut (F256) IgE Class 0
== END 2024-09-17 16:12 | disposition home or self-care (01) ==
LOC: CHSLAB 16:13
PROVIDERS: PCP Family Medicine; Visit Provider Family Medicine
DX: I12.9 Hypertensive chronic kidney disease with stage 1 through stage 4 chronic kidney disease, or unspecified chronic kidney disease (principal); E03.9 Hypothyroidism, unspecified; Z91.09 Other allergy status, other than to drugs and biological substances
CPT/HCPCS: 36415; 80053; 80061; 84443; 85025; 86003